=== PATIENT | female | born 1950 | race Caucasian/White ===

== ENCOUNTER → 2018-03-16 07:43 | Outpatient (CLI) | payer MEDICARE, OTHER, SELFPAY ==
--- NOTE | 2018-03-16 07:48 | ADU_ITS ---
Reason For Study: Atherosclerosis Right Velocities Left Velocities Ext. Iliac Artery, dist = 217 cm./sec. Ext Iliac Artery, dist = 125 cm./sec. Common Femoral Artery, mid = 141 cm./sec. Common Femoral Artery, mid = 127 cm./sec. Supf Femoral Artery, prox = 79.4 cm./sec. Supf. Femoral Artery, prox = 76.6 cm./sec. Supf Femoral Artery, mid = 250 cm./sec. Stent proximal = 84.5 cm/sec. Supf Femoral Artery, dist. = 133 cm./sec. Stent mid = 58 cm/sec. Profunda Femoral Artery = 329 cm./sec. Stent distal = 71.5 cm/sec. Popliteal Artery, prox. = 36.7 cm./sec. Supf. Femoral Artery, mid = 52.2 cm./sec. Popliteal Artery, mid = 72.1 cm./sec. Supf. Femoral Artery, dist = 19.6 cm./sec. Popliteal Artery, dist = 60.4 cm./sec. Profunda Femoral Artery = 81.5 cm./sec. Post. Tibial Artery, prox = 17.5 cm./sec. Popliteal Artery, proximal, = 449 cm./sec. Post. Tibial Artery, mid = 33.2 cm./sec. Popliteal Artery, mid = 134 cm./sec. Post. Tibial Artery, dist = 21 cm./sec. Popliteal Artery, distal = 25.3 cm./sec. Peroneal Artery, prox = 28.7 cm./sec. Post. Tibial Artery, prox = 28.3 cm./sec. Peroneal Artery, mid = 60.1 cm./sec. Post Tibial Artery, mid = 29.1 cm./sec. Peroneal Artery,dist = 57.8 cm./sec. Post Tibial Artery, dist. = 13.2 cm./sec. Ant. Tibial Artery, prox = 45.2 cm./sec. Ant.Tibial Artery, prox = 20.8 cm./sec. Ant. Tibial Artery, mid = 30.3 cm./sec. Ant Tibial Artery, mid = 29.3 cm./sec. Ant. Tibial Artery, dist = 35.8 cm./sec. Ant. Tibial Artery, distal = 27.1 cm./sec. Procedure Exam performed in department. Interpretation Summary 1. Right profunda severe stenosis and moderate mid right SFA. TRiphasic flow to [place]lite[place] biphasic flow below. 2. Left with triphasic flow inot tibials and then biphasic but left peroneal oclcuded. Ordering Physician: Rojelio Chowdhury Referring Physician: Mary Ramirez Performed By: Mica Swift RVT and Student
--- NOTE | 2018-03-23 11:32 | LEAS ---
Arterial Study - Arterial Study Arterial Study: Date of scan 03/16/[address] Chowdhury History: Patient with atherosclerosis and ulcer Interpretation: Right lower extremity duplex shows biphasic flow of both vessels at the ankle. The BAO 0.7 and the PT and noncompressible of the DP. Digit brachial index 0.59. Left lower extremity unable to get a waveform or flow noted at the posterior tibial artery. And no BAO able to be obtained. The DP is monophasic flow with an BAO 0.6. Digit brachial index 0.33. Impression: 1. 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 Left lower extremity with moderate arterial occlusive disease with an BAO of 0.6. 3. Bilateral small vessel disease with the digit brachial index on the right 0.59 and more severe on the left with the digit brachial index 0.33
== END ==
PROVIDERS: Referring Provider Surgery Vascular Surgery; Visit Provider Surgery Vascular Surgery
DX: I70.245 Atherosclerosis of native arteries of left leg with ulceration of other part of foot (principal); I70.235 Atherosclerosis of native arteries of right leg with ulceration of other part of foot
CPT/HCPCS: 93922; 93925

== ENCOUNTER 2018-04-06 08:29 | Day surgery (SDC) | payer MEDICARE, OTHER, SELFPAY ==
[2018-04-06 08:42] VITALS: BMI 41.1
[2018-04-06 09:04] LABS: Hematocrit 33.5 % (37-47); Hemoglobin 10.7 g/dl (12.0-15.0); Mean Corp Hgb Conc 31.9 g/gl (32-36); Mean Corpuscular Hgb 32.2 pg (27.0-32.0); Mean Corpuscular Volume 100.9 fL (81-99); Platelet Count 101 K/mm3 (150-450); RBC Distribution Width CV 14.2 % (11.6-14.6); RBC Distribution Width SD 50.4 fl (35.1-43.9); Red Blood Count 3.32 M/mm3 (4.2-5.4); White Blood Count 6.5 K/mm3 (4.4-11.0)
[2018-04-06 09:07] LABS: Scan Indicated on CBC? Y/N NO
[2018-04-06 09:17] LABS: Albumin, Serum 3.5 g/dL (3.2-5.0); BUN 61 mg/dL (7-18); BUN/Creat Ratio 23.8 RATIO (10-20); Calcium,Total 8.8 mg/dL (8.5-10.1); Chloride 104 mmol/L (98-107); Creatinine, Serum 2.56 mg/dL (0.55-1.02); EST Glomerular Filtration Rate 20 mL/min (>60); Est Glom Filt Rate - Afr Amer 24 mL/min (>60); Estimated Creatinine Clearance 18.41 ml/min; Glucose 55 mg/dL (74-106); Phosphorus 5.1 mg/dL (2.5-4.9); Potassium 4.3 mmol/L (3.5-5.1); Sodium Level 143 mmol/L (136-145)
[2018-04-06 10:11] LABS: Bedside Glucose 66 mg/dL (70-110)
[2018-04-06 10:11] LABS: Bedside Glucose 63 mg/dL (70-110)
--- NOTE | 2018-04-06 11:40 | OP.PCM_ITS ---
Operative Report Date of Procedure: 04/06/18 Preoperative diagnosis: PAD with ulcer. Postop diagnosis: The same Surgeon: Dr. Rojelio Chowdhury Date of surgery 04/06/2018. Operation: 1. Ultrasound-guided access retrograde left common femoral artery. 2. Right lower extremity angiogram catheter placed into the popliteal artery. 3. Balloon angioplasty from the mid SFA to mid popliteal artery with a 4 x 150 drug-coated balloon. 4. Closure with Star close. Indication: This 67-year-old female with previous PAD and previous stent on her left. Now has ulcer on both feet. She is got some decreased ABIs noted we discussed that we try to do an angiogram to see if there is anything to intervene to improve flow. His benefits alternatives discussed she agreed to proceed. Operation: She was brought into the operating room. And undergone the appropriate timeout consent. Underwent sedation. Was prepped and draped in a sterile fashion. We did also got access retrograde in the left common femoral artery. Put a Glidewire up and then a 5 Polish sheath. We gave 3000 units of heparin. We got up and over the bifurcation and imaged from the right external iliac artery showing the external iliac common femoral profunda SFA was widely patent. We brought the catheter down image below showing some plaque in the distal SFA moderate severe stenosis in the area of the adductor. Mid popliteal also with a moderate stenosis. We then put the catheter in the distal popliteal and imaged below there showing the posterior tibial artery was small and occluded in the mid calf. Peroneal was a little smaller but was patent with collaterals in the anterior and posterior branches. The anterior tibial artery was patent throughout and was the main runoff with good flow into the foot. We then brought in a long 6 Polish sheath. We brought in a 4 x 150 drug-coated balloon, and balloon from the mid popliteal into the area of the distal SFA. We had this up for over 2-1/2 minutes. We then pulled it back and balloon through this segment into the mid superficial femoral artery with the same balloon for another 2-1/2-minute inflation. Completion was much improved and much better flow through this segment We then removed out the sheath deployed to start closed with good hemostasis. She was brought to recovery in stable condition. Contrast dye: 10-12 cc were used. Sedation: This 67-year-old female underwent moderate sedation given by Dr. Rojelio Chowdhury. She was monitored EKG blood pressure and pulse ox. He was given fentanyl and Ve rsed. She was monitored for over the 30 minutes of the procedure. She tolerated this well. See the EMR for complete record.
--- OUTSIDE RECORDS SUMMARY | 2018-05-23 03:42 | XMS RPT_ITS ---
:1950 Author Organization OHIP Support Name Relationship Address Phone SIMON CAIN Unavailable [address] + [place] [address] SHERRELL CAINER Unavailable [address] + [place] [address] NAMS SIMON Unavailable [address] + [place] [address] MCCKLEECHIS, SIMON Unavailable [address] + [place] [address] MCCKELECHIS, SIMON Unavailable [address] + [place] [address] NAMS, SIMON Unavailable [address] + [place] [address] NAMS, SIMON Unavailable [address] + [place] [address] R Unavailable Unavailable Unavailable NAMS, SIMON Unavailable [address] + [place] [address] R Unavailable Unavailable Unavailable FEUMBERS, SIMON Unavailable [address] + [place] [address] R Unavailable Unavailable Unavailable MCCUMBERS, SIMON Unavailable [address] + [place] [address] MCCKELECHIS, SIMON Unavailable [address] + [place] [address] MCCKELECHIS, SIMON Unavailable [address] + [place] [address] NAMS, SIMON Unavailable [address] + [place] [address] NAMS, SIMON Unavailable [address] + [place] [address] NAMS SIMON Unavailable [address] + [place] [address] MCCUMBERS, SIMON Unavailable [address] + [place] [address] MCCUMBERS, SIMON Unavailable [address] + [place] [address] MCCUMBERS, SIMON Unavailable [address] + [place] [address] MCCUMBERS, SIMON Unavailable [address] + [place] [address] MCCUMBERS, SIMON Unavailable [address] + [place] [address] MCCUMBERS, SIMON Unavailable [address] + [place] [address] MCCUMBERS, SIMON Unavailable [address] + [place] [address] MCCUMBERS, SIMON Unavailable [address] + [place] [address] MCCUMBERS, SIMON Unavailable [address] + [place] [address] MCCUMBERS, SIMON Unavailable [address] + [place] [address] MCCUMBERS, SIMON Unavailable [address] + [place] [address] MCCUMBERS, SIMON Unavailable [address] + [place] [address] MCCUMBERS, SIMON Unavailable [address] + [place] [address] MCCUMBERS, SIMON Unavailable [address] + [place] [address] MCCUMBERS, SIMON Unavailable [address] + [place] [address] MCCUMBERS, SIMON Unavailable [address] + [place] [address] MCCUMBERS, SIMON Unavailable [address] + [place] [address] MCCUMBERS, SIMON Unavailable [address] + [place] [address] MCCUMBERS, SIMON Unavailable [address] + [place] [address] MCCUMBERS, SIMON Unavailable [address] + [place] [address] MCCUMBERS, SIMON Unavailable [address] + [place] [address] MCCUMBERS, SIMON Unavailable [address] + [place] [address] MCCUMBERS, SIMON Unavailable [address] + [place] [address] MCCUMBERS, SIMON Unavailable [address] + [place] [address] MCCUMBERS, SIMON Unavailable [address] + [place] [address] MCCUMBERS, SIMON Unavailable [address] + [place] [address] MCCUMBERS, SIMON Unavailable [address] + [place] [address] MCCUMBERS, SIMON Unavailable [address] + [place] [address] MCCUMBERS, SIMON Unavailable [address] + [place] [address] MCCUMBERS, SIMON Unavailable [address] + [place] [address] MCCUMBERS, SIMON Unavailable [address] + [place] [address] R Unavailable Unavailable Unavailable MCCUMBERS, SIMON Unavailable [address] + [place] [address] MCCUMBERS, OLIVEHURST Unavailable [address] + [place] [address] MCCUMBERS, SIMON Unavailable [address] + [place] [address] MCCUMBERS, SIMON Unavailable [address] + [place] [address] MCCUMBERS, SIMON Unavailable [address] + [place] [address] MCCUMBERS, SIMON Unavailable [address] + [place] [address] MCCUMBERS, OLIVEHURST Unavailable [address] + [place] [address] MCCUMBERS, SIMON Unavailable [address] + [place] [address] MCCUMBERS, SIMON Unavailable [address] + [place] [address] MCCUMBERS, SIMON Unavailable [address] + [place] [address] MCCUMBERS, SIMON Unavailable [address] + [place] [address] MCCUMBERS, SIMON Unavailable [address] + [place] [address] MCCUMBERS, SIMON Unavailable [address] + [place] [address] MCCUMBERS, SIMON Unavailable [address] + [place] [address] MCCUMBERS, SIMON Unavailable [address] + [place] [address] MCCUMBERS, SIMON Unavailable [address] + [place] [address] MCCUMBERS, SIMON Unavailable [address] + [place] [address] MCCUMBERS, SIMON Unavailable [address] + [place] [address] MCCUMBERS, SIMON Unavailable [address] + [place] [address] MCCUMBERS, SIMON Unavailable [address] + [place] [address] MCCUMBERS, SIMON Unavailable [address] + [place] [address] MCCUMBERS, SIMON Unavailable [address] + [place] [address] Care Team Providers Name Role Phone Arelis Gallego Attending Unavailable Arelis Gallego Referring Unavailable Genoveva Chowdhury Attending Unavailable Genoveva Chowdhury Referring Unavailable Mary Ramirez Primary Care Unavailable Genoveva Chowdhury Attending Unavailable Genoveva Chowdhury Referring Unavailable Mary Ramirez Primary Care Unavailable Genoveva Chowdhury Attending Unavailable Genoveva Chowdhury Referring Unavailable Mary Ramirez Primary Care Unavailable LINWOOD SAUCEDO ([employer]) Referring Unavailable ZAC PEARSON Attending Unavailable BROWN, ARELIS R Referring Unavailable PEARSON, ZAC Referring Unavailable SALVADOR FORRESTER Admitting Unavailable CHETNA ALFREDO Attending Unavailable SALVADOR FORRESTER Referring Unavailable CLAUDIA GARDNER H Referring Unavailable CHETNA ALFREDO Referring Unavailable RENAY DOCKERY ([facility]) Referring Unavailable PEARSON, ZAC Referring Unavailable URSZULA SORENSEN, DR. CHRISSY Pretty Attending Unavailable BROWN, ARELIS Primary Care Unavailable HAYDEE GRACIA MD Attending Unavailable BROWN, ARELIS Primary Care Unavailable HAYDEE GRACIA MD Admitting Unavailable ANA GUTIERREZ MD Consulting Unavailable NAS COPPOLA MD Consulting Unavailable URIAH DOW MD Consulting Unavailable DAVID FARMER MD Consulting Unavailable HAYDEE CUETO MD Consulting Unavailable HAYDEE GRACIA MD Consulting Unavailable PATIENCE GALLEGOLAS Consulting Unavailable DILMA BONILLA Attending Unavailable BROWN, ARELIS Primary Care Unavailable DAVID FARMER MD Attending Unavailable JULIÁN ARELIS Primary Care Unavailable ANA GUTIERREZ MD Attending Unavailable FLORENCE BURRELL, DR. PRADHAN Primary Care Unavailable ANDRZEJ DAIGLE., DR. DIETZ Attending Unavailable FLORENCE BURRELL, DR. PRADHAN Primary Care Unavailable GENOVEVA MANN Attending Unavailable FLORENCE BURRELL, DR. PRADHAN Primary Care Unavailable FLORENCE BURRELL, DR. PRADHAN Primary Care Unavailable WES BOYLE MD Attending Unavailable ABELINO LADD MD Consulting Unavailable HAYDEE GRACIA MD Attending Unavailable FLORENCE BURRELL, DR. PRADHAN Primary Care Unavailable HAYDEE GRACIA MD Attending Unavailable FLORENCE BURRELL, DR. PRADHAN Primary Care Unavailable URSZULA SORENSEN, DR. CHRISSY Pretty Attending Unavailable FLORENCE BURRELL, DR. PRADHAN Primary Care Unavailable RICHARD ATKINS NP Attending Unavailable FLORENCE BURRELL, DR. PRADHAN Primary Care Unavailable HAYDEE GRACIA MD Attending Unavailable FLORENCE BURRELL, DR. PRADHAN Primary Care Unavailable HAYDEE GRACIA MD Admitting Unavailable HAYDEE GRACIA MD Attending Unavailable FLORENCE BURRELL, DR. PRADHAN Primary Care Unavailable HAYDEE GRACIA MD Consulting Unavailable STEPHEN HOLLINGSWORTH MD Consulting Unavailable FLORENCE BURRELL, DR. PRADHAN Consulting Unavailable ANA GUTIERREZ MD Consulting Unavailable PARI SORENSEN, DR. MCNEILL Attending Unavailable FLORENCE DO, DR. PRADHAN Primary Care Unavailable SHAHLA Olvera Attending Unavailable FLORENCE DO, DR. PRADHAN Primary Care Unavailable URSZULA SORENSEN, DR. CHRISSY Pretty Attending Unavailable FLORENCE DO, DR. PRADHAN Primary Care Unavailable ANA GUTIERREZ MD Attending Unavailable FLORENCE DO, DR. PRADHAN Primary Care Unavailable WILBERT JULIEN, RICHARD Pillai Attending Unavailable FLORENCE DO, DR. PRADHAN Primary Care Unavailable DAVID FARMER MD Attending Unavailable FLORENCE DO, DR. PRADHAN Primary Care Unavailable URSZULA SORENSEN, DR. CHRISSY Pretty Attending Unavailable FLORENCE DO, DR. PRADHAN Primary Care Unavailable URSZULA SORENSEN, DR. CHRISSY Pretty Attending Unavailable FLORENCE DO, DR. PRADHAN Primary Care Unavailable HAYDEE GRACIA MD Attending Unavailable FLORENCE DO, DR. PRADHAN Primary Care Unavailable URSZULA SORENSEN, DR. CHRISSY Pretty Attending Unavailable FLORENCE DO, DR. PRADHAN Primary Care Unavailable ANA GUTIERREZ MD Attending Unavailable FLORENCE DO, DR. PRADHAN Primary Care Unavailable URSZULA SORENSEN, DR. CHRISSY Pretty Attending Unavailable FLORENCE DO, DR. PRADHAN Primary Care Unavailable URSZULA SORENSEN, DR. CHRISSY Pretty Attending Unavailable FLORENCE DO, DR. PRADHAN Primary Care Unavailable URSZULA SORENSEN, DR. CHRISSY Pretty Attending Unavailable FLORENCE DO, DR. PRADHAN Primary Care Unavailable URSZULA SORENSEN, DR. CHRISSY Pretty Attending Unavailable FLORENCE DO, DR. PRADHAN Primary Care Unavailable WES BOYLE MD Attending Unavailable FLORENCE DO, DR. PRADHAN Primary Care Unavailable ANA GUTIERREZ MD Attending Unavailable FLORENCE DO, DR. PRADHAN Primary Care Unavailable URSZULA SORENSEN, DR. CHRISSY Pretty Attending Unavailable FLORENCE , DR. PRADHAN Primary Care Unavailable PROBLEMS PROBLEMS DATE TYPE CONDITION / CODE ATTENDING STATUS SOURCE 09/06/2017 Active Acute on chronic NA Active [facility] (congestive) heart Repository failure / I50.23(ICD-10) 09/01/2017 Active Morbid (severe) STARLING, Active [facility] obesity due to [facility] excess calories / Repository E66.01(ICD-10) 08/19/2017 Active Fluid overload, STARLING, Active [facility] unspecified / [facility] E87.70(ICD-10) Repository 08/19/2017 Active Type 2 diabetes STARLING, Active [facility] mellitus with [facility] hyperglycemia / Repository E11.65(ICD-10) 08/19/2017 Active emt intermediate (current) STARLING, Active [facility] use of insulin / [facility] Z79.4(ICD-10) Repository 08/19/2017 Active Other fluid STARLING, Active [facility] overload / [facility] E87.79(ICD-10) Repository 08/19/2017 Active Type 2 diabetes STARLING, Active [facility] mellitus with [facility] unspecified Repository complications / E11.8(ICD-10) 08/31/2016 Active Chronic viral NA Active [facility] hepatitis C / [facility] B18.2(ICD-10) Repository 08/31/2016 Active Unspecified NA Active [facility] cirrhosis of liver [facility] / K74.60(ICD-10) Repository PROCEDURES PROCEDURES No Procedure Records FoundRESULTS RESULTS HGMP Collected: 05/09/2018 Status: F Source: [facility] 9:40 AM [facility] REPOSITORY TYPE CODE TESTS RESULT OUT OF REFERENCE UNITS RANGE LAB WBC(LOINC) 4.60-10.80 10 3/mcL WBC 5.20 LAB RBCCT(LOINC 4.20-5.40 10 6/mcL ) Low RBC 3.02 LAB HGB(LOINC) 12.0-16.0 G/dL Low Hgb 10.0 LAB HCT(LOINC) 37.0-47.0 % Low Hct 29.9 LAB MCV(LOINC) 80.0-94.0 fL High MCV 99.0 LAB MCH(LOINC) 27.0-31.2 pg High MCH 33.0 LAB MCHC(LOINC) 33.0-37.0 G/dL MCHC 33.3 LAB RDW(LOINC) 11.5-14.5 % High RDW 15.9 LAB PLT(LOINC) 130-400 10 3/mcL Low Platelet 70 LAB MPV(LOINC) 7.4-10.4 fL MPV 9.5 Performed By: #### HGMP #### [address] [place], [place] [address] #### RFP, GFR, PTH, VIDH #### [address] [address] RFP Collected: 05/09/2018 Status: F Source: [facility] 9:40 AM [facility] REPOSITORY TYPE CODE TESTS RESULT OUT OF REFERENCE UNITS RANGE LAB GLU(LOINC) 80-115 mg/dL Glucose High Level 207 LAB NA(LOINC) 136-145 mmol/L Sodium Level 139 LAB K(LOINC) 3.5-5.1 mmol/L Potassium Level 4.9 LAB CL(LOINC) 98-107 mmol/L Chloride 101 LAB CO2(LOINC) 23-31 mmol/L CO2 High 32 LAB EBAL(LOINC mEq/L ) Electrolyte Balance 6.0 LAB BUN(LOINC) 7-18 mg/dL BUN High 59 LAB CRE(LOINC) 0.55-1.02 mg/dL Creatinine High Lvl (s) 2.61 LAB BC(LOINC) 7-27 ratio BUN/Creatinine 23 Ratio LAB CA(LOINC) 8.4-10.2 mg/dL Calcium Lvl 9.7 LAB PHOS(LOINC 2.3-4.1 mg/dL ) Phosphorus High 4.6 LAB ALB(LOINC) 3.4-4.8 G/dL Albumin Level 3.5 Performed By: #### HGMP #### [address] [address] #### RFP, GFR, PTH, VIDH #### [address] [address] .GFR Collected: 05/09/2018 Status: F Source: [employer] 9:40 AM [facility] REPOSITORY TYPE CODE TESTS RESULT OUT OF REFERENCE UNITS RANGE LAB GFRAA(LOINC ml/min/1.73 ) sqm GFR 22 Citizen Of [place] Result Comment: GFR Population mean for , Non- Americans Ages 20-29 = 116 mL/min/1.73 sq.m. Ages 30-39 = 107 mL/min/1.73 sq.m. Ages 40-49 = 99 mL/min/1.73 sq.m. Ages 50-59 = 93 mL/min/1.73 sq.m. Ages 60-69 = 85 mL/min/1.73 sq.m. Ages 70+ = 75 mL/min/1.73 sq.m. Chronic Kidney Disease: Less than 60 mL/min/1.73 square meters End Stage Renal Disease: Less than 15 mL/min/1.73 square meters LAB GFRNO(LOINC) ml/min/1.73sqm GFR Non- 18 Result Comment: GFR Population mean for , Non- Americans Ages 20-29 = 116 mL/min/1.73 sq.m. Ages 30-39 = 107 mL/min/1.73 sq.m. Ages 40-49 = 99 mL/min/1.73 sq.m. Ages 50-59 = 93 mL/min/1.73 sq.m. Ages 60-69 = 85 mL/min/1.73 sq.m. Ages 70+ = 75 mL/min/1.73 sq.m. Chronic Kidney Disease: Less than 60 mL/min/1.73 square meters End Stage Renal Disease: Less than 15 mL/min/1.73 square meters Performed By: #### HGMP #### [address] [address] #### RFP, GFR, PTH, VIDH #### [address] [address] PTH Collected: 05/09/2018 Status: F Source: [employer] 9:40 AM [facility] REPOSITORY TYPE CODE TESTS RESULT OUT OF REFERENCE UNITS RANGE LAB PTH(LOINC) 18.5-88.0 pg/mL High PTH, Intact 134.9 Performed By: #### HGMP #### [address] [place], [place] [address] #### RFP, GFR, PTH, VIDH #### [address] [address] VIDH Collected: 05/09/2018 Status: F Source: [facility] 9:40 AM [facility] REPOSITORY TYPE CODE TESTS RESULT OUT OF RANGE REFERENCE UNITS LAB VIDH(LOINC) ng/mL Vit. D 62 25-Hydroxy Result Comment: Interpretive Values Based on Total 25(OH)D: Severe Deficiency <20 ng/mL Mild to Moderate Deficiency 20-30 ng/mL Optimum Levels 30-100 ng/mL Toxicity Possible >100 ng/mL Performed By: #### HGMP #### [address] [address] #### RFP, GFR, PTH, VIDH #### [facility] [address] [place] [address] A1C Collected: 05/09/2018 Status: F Source: [facility] 9:40 AM [facility] REPOSITORY TYPE CODE TESTS RESULT OUT OF RANGE REFERENCE UNITS LAB A1C(LOINC) 4.5-6.2 % High Hgb A1c 7.7 Performed By: #### A1C, TSH, CMP, GFR #### [place] [address] TSH Collected: 05/09/2018 Status: F Source: [facility] 9:40 AM [facility] REPOSITORY TYPE CODE TESTS RESULT OUT OF RANGE REFERENCE UNITS LAB TSH(LOINC) 0.36-3.74 mcIU/mL TSH 0.68 Performed By: #### A1C, TSH, CMP, GFR #### [place] [address] CMP Collected: 05/09/2018 Status: F Source: [facility] 9:40 AM [facility] REPOSITORY TYPE CODE TESTS RESULT OUT OF REFERENCE UNITS RANGE LAB GLU(LOINC) 80-115 mg/dL Glucose High Level 205 LAB NA(LOINC) 136-145 mmol/L Sodium Level 139 LAB K(LOINC) 3.5-5.1 mmol/L Potassium Level 5.0 LAB CL(LOINC) 98-107 mmol/L Chloride 101 LAB CO2(LOINC) 23-31 mmol/L CO2 31 LAB EBAL(LOINC mEq/L ) Electrolyte Balance 7.0 LAB BUN(LOINC) 7-18 mg/dL BUN High 60 LAB CRE(LOINC) 0.55-1.02 mg/dL Creatinine High Lvl (s) 2.61 LAB BC(LOINC) 7-27 ratio BUN/Creatinine 23 Ratio LAB CA(LOINC) 8.4-10.2 mg/dL Calcium Lvl 9.8 LAB PROT(LOINC 6.4-8.2 G/dL ) Total Protein 7.5 LAB ALB(LOINC) 3.4-4.8 G/dL Albumin Level 3.5 LAB GLB(LOINC) G/dL Globulin 4.0 LAB AG(LOINC) 1.1-2.5 ratio Low A/G Ratio 0.9 LAB BILT(LOINC 0.2-1.0 mg/dL ) Bili Total 0.7 LAB AP(LOINC) 40-135 U/L Alk Phos 106 LAB AST(LOINC) 10-40 U/L AST/SGOT 24 LAB ALT(LOINC) 10-35 U/L ALT/SGPT 20 Performed By: #### A1C, TSH, CMP, GFR #### [facility] [address] [place] [address] .GFR Collected: 05/09/2018 Status: F Source: [facility] 9:40 AM [facility] REPOSITORY TYPE CODE TESTS RESULT OUT OF REFERENCE UNITS RANGE LAB GFRAA(LOINC ml/min/1.73 ) sqm GFR 22 Citizen [place] Result Comment: GFR Population mean for , Non- Americans Ages 20-29 = 116 mL/min/1.73 sq.m. Ages 30-39 = 107 mL/min/1.73 sq.m. Ages 40-49 = 99 mL/min/1.73 sq.m. Ages 50-59 = 93 mL/min/1.73 sq.m. Ages 60-69 = 85 mL/min/1.73 sq.m. Ages 70+ = 75 mL/min/1.73 sq.m. Chronic Kidney Disease: Less than 60 mL/min/1.73 square meters End Stage Renal Disease: Less than 15 mL/min/1.73 square meters LAB GFRNO(LOINC) ml/min/1.73sqm GFR Non- 18 Result Comment: GFR Population mean for , Non- Americans Ages 20-29 = 116 mL/min/1.73 sq.m. Ages 30-39 = 107 mL/min/1.73 sq.m. Ages 40-49 = 99 mL/min/1.73 sq.m. Ages 50-59 = 93 mL/min/1.73 sq.m. Ages 60-69 = 85 mL/min/1.73 sq.m. Ages 70+ = 75 mL/min/1.73 sq.m. Chronic Kidney Disease: Less than 60 mL/min/1.73 square meters End Stage Renal Disease: Less than 15 mL/min/1.73 square meters Performed By: #### A1C, TSH, CMP, GFR #### [facility] [address] [place] [address] CRUR Collected: 05/09/2018 Status: F Source: [employer] [facility] 9:40 AM [facility] REPOSITORY TYPE CODE TESTS RESULT OUT OF REFERENCE UNITS RANGE LAB CRU(LOINC) 28.0-117.0 mg/dL U Creatinine 69.3 Performed By: #### CRUR, PRUR #### [facility] [address] [place] [address] PRUR Collected: 05/09/2018 Status: F Source: [employer] 9:40 AM [facility] REPOSITORY TYPE CODE TESTS RESULT OUT OF REFERENCE UNITS RANGE LAB PRU(LOINC) 0-11 mg/dL U High Protein 18 Performed By: #### CRUR, PRUR #### [facility] [address] [place] [address] XR RIBS 2 VIEWS Observed: 04/20/2018 Status: F Source: [employer] RIGHT/PA CHEST(AO) 5:49 PM [facility] REPOSITORY ORIGINAL XR RIBS 2 VIEWS RIGHT/PA CHEST(AO) CLINICAL STATEMENT: pain. Fall 2 days ago. RIGHT posterolateral rib pain COMPARISON: Portable chest, 11/08/2027 FINDINGS: A PA view of the chest and RIGHT radiographic rib series was performed. Bony detail is suboptimal given patient habitus and motion, however no displaced rib fracture is seen. There is no pneumothorax. Median sternotomy wires are intact. There is a LEFT anterior chest wall ICD with leads projecting over the RIGHT atrium, RIGHT ventricle, and coronary sinus. There is mild cardiomegaly without pulmonary vascular congestion. Streaky opacities in the lower lungs favor subsegmental atelectasis. No dense consolidation or pleural effusion. Moderate multilevel degenerative endplate changes are seen throughout the thoracic spine. IMPRESSION: No displaced rib fracture or pneumothorax. Stable cardiomegaly. I have personally reviewed the images of this examination and agree with the resident's findings and interpretation Interpreted By: Torres Bridges MD Preliminary Report By: Noel Chavira MD Electronically Signed By: Torres Bridges MD Dictated Date: 04/20/2018 6:02:39 PM Prelim Date: 04/20/2018 6:06:11 PM Sign Date: 04/20/2018 6:19:49 PM BEDSIDE GLUCOSE Collected: 04/13/2018 Status: F Source: [facility] 3:20 PM [facility] REPOSITORY TYPE CODE TESTS RESULT OUT OF REFERENCE UNITS RANGE LAB L501.080 70-110 mg/dL High BEDSIDE GLU 447 Result Comment: MANAGEMENT OF PATIENT CARE PER NURSING PROTOCOL Performed By: #### L501.080 #### [facility] Point of Care [address] [place] [address] OPERATIVE REPORT Observed: 04/13/2018 Status: F Source: [place] 11:43 AM [facility] REPOSITORY [facility] Medical Records Department [address] [place] [address] Operative Report 04/13/18 1134 MR#: [id number] Acct: [id number] Name: KALYN CAIN Rep #: [id number] : 1950 67 From: Genoveva Chowdhury MD PCP: Mary Ramirez DO Status: [facility] Location: [facility] Problem List (1) PAD (peripheral artery disease) Status: Acute Report of Operation Date of Procedure: 04/13/18 Pre-Operative Diagnosis: PAD Post-Operative Diagnosis: The same Surgery/Procedure Performed:: 1. Ultrasound-guided access retrograde right common femoral artery. 2. Left lower extremity angiogram with a total of 13 cc of dye used. Catheter placed past the third order into the popliteal artery. 3. Balloon angioplasty of the popliteal to the stent that is in the proximal popliteal to SFA, with a 4 mm balloon and then a 4 x 150 drug-coated balloon. 4. Closure with VASC ANANYA Type of Anesthesia:: Sedation,Conscious Description of Procedure: Patient brought to the Cryptographic Machine Operator. Underwent the appropriate timeout consent. Underwent sedation. He was prepped and draped in a sterile fashion. We did ultrasound-guided access retrograde in the right common femoral artery and put in a 6 [place] sheath and then gave 5000 units of heparin. We got up and over the bifurcation switch to a quick cross catheter. We then imaged from the left external iliac artery showing through the external cautery down through the common femoral profunda was widely patent. The SFA was widely patent into the stent, the stent was from the distal SFA to the proximal popliteal. This appeared to be fairly patent with no significant stenosis noted. The mid popliteal had a near subtotal occlusion. Below this there is good flow in the distal popliteal into the anterior tibial and tibial peroneal trunk. We did not image below this to try to salvage on dye. We knew from the duplex that the difficulty appear to be in the popliteal artery. We then switched to a stiffer wire brought and a 6 [place] sheath we then got sheath all the way down to the common femoral artery. Using a quick cross and then the wire was able to get through the area the occlusion. We confirmed we are into the [place] vessel with flow below this. We then brought in along for by 200 balloon and balloon from the distal popliteal through the entire popliteal artery, into the popliteal and SFA stent. We ballooned this for over 2 minutes. We then ballooned it with a 4 x 150 drug-coated balloon. Completion angios markedly improved with great flow through this area. We then removed out the sheath deployed a star closed with good hemostasis patient was then brought to recovery in stable condition. Sedation: Is a 67-year-old female underwent moderate sedation given by Dr. Genoveva Chowdhury. She was monitored for over 30 minutes of the procedure with EKG blood pressure and pulse ox. She was given fentanyl and Versed. See the EMR for the complete record. 04/13/18 1143 <Electronically signed by Genoveva Chowdhury MD> Date Genoveva Chowdhury MD CC: Genoveva Chowdhury MD; Mary Ramirez DO Signed CBC-COMPLETE BLOOD CNT Collected: 04/13/2018 Status: F Source: [facility] NO DIFF 8:30 AM [facility] REPOSITORY TYPE CODE TESTS RESULT OUT OF RANGE REFERENCE UNITS LAB L100.1000 4.4-11.0 K/mm3 Normal WBC 5.4 LAB L100.1200 4.2-5.4 M/mm3 Low RBC 3.00 LAB L100.1300 12.0-15.0 g/dl Low HGB 9.6 LAB L100.1400 37-47 % Low HCT 30.1 LAB L100.1500 81-99 fL High MCV 100.3 LAB L100.1600 27.0-32.0 pg Normal MCH 32.0 LAB L100.1700 32-36 g/gl Low MCHC 31.9 LAB L100.1810 11.6-14.6 % Normal RDW CV 14.1 LAB L100.1820 35.1-43.9 fl High RDW SD 48.9 LAB L100.1900 150-450 K/mm3 Low PLT 70 LAB L100.2000 6.2-12.0 fl Normal MPV 11.4 Performed By: #### L100.0500 #### [facility] [address] [place], [place], [address] RENAL PROFILE Collected: 04/13/2018 Status: F Source: [place] 8:30 AM [facility] REPOSITORY TYPE CODE TESTS RESULT OUT OF RANGE REFERENCE UNITS LAB L501.0100 74-106 mg/dL High GLU 349 Result Comment: Glucose result greater than or equal to 200 mg/dL suggests DIABETES MELLITUS per A.D.A. criteria. Please note revised GLUCOSE reference range effective 2017. LAB L501.1000 7-18 mg/dL High BUN 67 LAB L501.1100 0.55-1.02 mg/dL High CREAT,SERUM 2.75 Result Comment: The validity of the calculated GFR AND GFRAA in patients over 70 years has not been determined. Clinical correlation is essential. LAB L501.1110 >60 mL/min Low EST GFR 18 Result Comment: Non- GFR Calc LAB L501.1115 >60 mL/min Low EST GFR - AA 22 Result Comment: GFR Calc LAB L501.1255 ml/min Normal Estimated CRCL 17.14 LAB L501.1300 10-20 RATIO High BUN/CRE 24.4 LAB L501.1800 3.2-5. g/dL Normal 0 ALB 3.2 LAB L501.2200 8.5-10 mg/dL Normal .1 CA 9.1 LAB L501.2300 2.5-4. mg/dL Normal 9 PHOS 4.5 LAB L501.5300 136-14 mmol/L Normal 5 NA 138 LAB L501.5600 3.5-5. mmol/L Normal 1 K 5.1 LAB L501.5900 98-107 mmol/L Normal CL 98 LAB L501.6100 21.0-3 mmol/L Normal 2.0 CO2 30.0 Performed By: #### L500.3600 #### [facility] [address] [place], [address] OPERATIVE REPORT Observed: 04/06/2018 Status: F Source: [place] 11:40 AM [facility] REPOSITORY [facility] Medical Records Department [address] [place] [address] Operative Report 04/06/18 1136 MR#: [id number] Acct: [id number] Name: KALYN CAIN Rep #: [id number] : 1950 67 From: Genoveva Chowdhury MD PCP: Mary Ramirez DO Status: REG [facility] Location: [facility] Operative Report Date of Procedure: 04/06/18 Preoperative diagnosis: PAD with ulcer. Postop diagnosis: The same Surgeon: Dr. Genoveva Chowdhury Date of surgery 04/06/2018. Operation: 1. Ultrasound-guided access retrograde left common femoral artery. 2. Right lower extremity angiogram catheter placed into the popliteal artery. 3. Balloon angioplasty from the mid SFA to mid popliteal artery with a 4 x 150 drug-coated balloon. 4. Closure with Star close. Indication: This 67-year-old female with previous PAD and previous stent on her left. Now has ulcer on both feet. She is got some decreased ABIs noted we discussed that we try to do an angiogram to see if there is anything to intervene to improve flow. His benefits alternatives discussed she agreed to proceed. Operation: She was brought into the operating room. And undergone the appropriate timeout consent. Underwent sedation. Was prepped and draped in a sterile fashion. We did also got access retrograde in the left common femoral artery. Put a Glidewire up and then a 5 [place] sheath. We gave 3000 units of heparin. We got up and over the bifurcation and imaged from the right external iliac artery showing the external iliac common femoral profunda SFA was widely patent. We brought the catheter down image below showing some plaque in the distal SFA moderate severe stenosis in the area of the adductor. Mid popliteal also with a moderate stenosis. We then put the catheter in the distal popliteal and imaged below there showing the posterior tibial artery was small and occluded in the mid calf. Peroneal was a little smaller but was patent with collaterals in the anterior and posterior branches. The anterior tibial artery was patent throughout and was the main runoff with good flow into the foot. We then brought in a long 6 [place] sheath. We brought in a 4 x 150 drug-coated balloon, and balloon from the mid popliteal into the area of the distal SFA. We had this up for over 2-1/2 minutes. We then pulled it back and balloon through this segment into the mid superficial femoral artery with the same balloon for another 2-1/2-minute inflation. Completion was much improved and much better flow through this segment We then removed out the sheath deployed to start closed with good hemostasis. She was brought to recovery in stable condition. Contrast dye: 10-12 cc were used. Sedation: This 67-year-old female underwent moderate sedation given by Dr. Genoveva Chowdhury. She was monitored EKG blood pressure and pulse ox. He was given fentanyl and Versed. She was monitored for over the 30 minutes of the procedure. She tolerated this well. See the EMR for complete record. 04/06/18 1140 <Electronically signed by Genoveva Chowdhury MD> Date Genoveva Chowdhury MD CC: Genoveva Chowdhury MD; Mary Ramirez DO Signed BEDSIDE GLUCOSE Collected: 04/06/2018 Status: F Source: [place] 10:04 AM [facility] REPOSITORY TYPE CODE TESTS RESULT OUT OF REFERENCE UNITS RANGE LAB L501.080 70-110 mg/dL Low BEDSIDE GLU 63 Result Comment: MANAGEMENT OF PATIENT CARE PER NURSING PROTOCOL Performed By: #### L501.080 #### [facility] Point of Care [address] [place] [address] BEDSIDE GLUCOSE Collected: 04/06/2018 Status: F Source: [place] 9:02 AM [facility] REPOSITORY TYPE CODE TESTS RESULT OUT OF REFERENCE UNITS RANGE LAB L501.080 70-110 mg/dL Low BEDSIDE GLU 66 Result Comment: MANAGEMENT OF PATIENT CARE PER NURSING PROTOCOL Performed By: #### L501.080 #### [facility] Point of Care [address] [place] [address] CBC-COMPLETE BLOOD CNT Collected: 04/06/2018 Status: F Source: [place] NO DIFF 5:45 AM [facility] REPOSITORY TYPE CODE TESTS RESULT OUT OF RANGE REFERENCE UNITS LAB L100.1000 4.4-11.0 K/mm3 Normal WBC 6.5 LAB L100.1200 4.2-5.4 M/mm3 Low RBC 3.32 LAB L100.1300 12.0-15.0 g/dl Low HGB 10.7 LAB L100.1400 37-47 % Low HCT 33.5 LAB L100.1500 81-99 fL High MCV 100.9 LAB L100.1600 27.0-32.0 pg High MCH 32.2 LAB L100.1700 32-36 g/gl Low MCHC 31.9 LAB L100.1810 11.6-14.6 % Normal RDW CV 14.2 LAB L100.1820 35.1-43.9 fl High RDW SD 50.4 LAB L100.1900 150-450 K/mm3 Low PLT 101 LAB L100.2000 6.2-12.0 fl Normal MPV 11.0 Performed By: #### L100.0500 #### [facility] [address] [place], [place], [id number] RENAL PROFILE Collected: 04/06/2018 Status: F Source: [place] 5:45 AM [facility] REPOSITORY TYPE CODE TESTS RESULT OUT OF RANGE REFERENCE UNITS LAB L501.0100 74-106 mg/dL Low GLU 55 Result Comment: Please note revised GLUCOSE reference range effective 2017. LAB L501.1000 7-18 mg/dL High BUN 61 LAB L501.1100 0.55-1.02 mg/dL High CREAT,SERUM 2.56 Result Comment: The validity of the calculated GFR AND GFRAA in patients over 70 years has not been determined. Clinical correlation is essential. LAB L501.1110 >60 mL/min Low EST GFR 20 Result Comment: Non- GFR Calc LAB L501.1115 >60 mL/min Low EST GFR - AA 24 Result Comment: GFR Calc LAB L501.1255 ml/min Normal Estimated CRCL 18.41 LAB L501.1300 10-20 RATIO High BUN/CRE 23.8 LAB L501.1800 3.2-5. g/dL Normal 0 ALB 3.5 LAB L501.2200 8.5-10 mg/dL Normal .1 CA 8.8 LAB L501.2300 2.5-4. mg/dL High 9 PHOS 5.1 LAB L501.5300 136-14 mmol/L Normal 5 NA 143 LAB L501.5600 3.5-5. mmol/L Normal 1 K 4.3 LAB L501.5900 98-107 mmol/L Normal CL 104 LAB L501.6100 21.0-3 mmol/L Normal 2.0 CO2 30.0 Performed By: #### L500.3600 #### [facility] [address] [facility] [place], [address] ARTERIAL DUPLEX US Observed: 03/23/2018 Status: F Source: [facility] 11:47 AM [facility] REPOSITORY [facility] Cardiovascular Services [address] [place] [address] Art Duplex US Bilat Lower Ext 03/16/18 0756 MR#: [id number] Acct: [id number] Name: KALYN CAIN Rep #: [id number] : 1950 67 From: Genoveva Chowdhury MD Attending Dr: Genoveva Chowdhury MD Status: REG CLI Ordering Dr: Genoveva Chowdhury MD Date: 03/16/18 Location: [facility] Sex: F C Admitted: Reason For Study: Atherosclerosis Right Velocities Left Velocities Ext. Iliac Artery, dist = 217 cm./sec. Ext Iliac Artery, dist = 125 cm./sec. Common Femoral Artery, mid = 141 cm./sec. Common Femoral Artery, mid = 127 cm./sec. Supf Femoral Artery, prox = 79.4 cm./sec. Supf. Femoral Artery, prox = 76.6 cm./sec. Supf Femoral Artery, mid = 250 cm./sec. Stent proximal = 84.5 cm/sec. Supf Femoral Artery, dist. = 133 cm./sec. Stent mid = 58 cm/sec. Profunda Femoral Artery = 329 cm./sec. Stent distal = 71.5 cm/sec. Popliteal Artery, prox. = 36.7 cm./sec. Supf. Femoral Artery, mid = 52.2 cm./sec. Popliteal Artery, mid = 72.1 cm./sec. Supf. Femoral Artery, dist = 19.6 cm./sec. Popliteal Artery, dist = 60.4 cm./sec. Profunda Femoral Artery = 81.5 cm./sec. Post. Tibial Artery, prox = 17.5 cm./sec. Popliteal Artery, proximal, = 449 cm./sec. Post. Tibial Artery, mid = 33.2 cm./sec. Popliteal Artery, mid = 134 cm./sec. Post. Tibial Artery, dist = 21 cm./sec. Popliteal Artery, distal = 25.3 cm./sec. Peroneal Artery, prox = 28.7 cm./sec. Post. Tibial Artery, prox = 28.3 cm./sec. Peroneal Artery, mid = 60.1 cm./sec. Post Tibial Artery, mid = 29.1 cm./sec. Peroneal Artery,dist = 57.8 cm./sec. Post Tibial Artery, dist. = 13.2 cm./sec. Ant. Tibial Artery, prox = 45.2 cm./sec. Ant.Tibial Artery, prox = 20.8 cm./sec. Ant. Tibial Artery, mid = 30.3 cm./sec. Ant Tibial Artery, mid = 29.3 cm./sec. Ant. Tibial Artery, dist = 35.8 cm./sec. Ant. Tibial Artery, distal = 27.1 cm./sec. Procedure Exam performed in department. Interpretation Summary 1. Right profunda severe stenosis and moderate mid right SFA. TRiphasic flow to poplitealand biphasic flow below. 2. Left with triphasic flow inot tibials and then biphasic but left peroneal oclcuded. Ordering Physician: Genoveva Chowdhury Referring Physician: Mary Ramirez Performed By: Mica Swift RVT and Student 03/23/18 1147 Date Genoveva Chowdhury MD CC: Genoveva Chowdhury MD; Mary Ramirez DO Date Dictated: 03/16/18 0756 Date Transcribed: 03/23/18 114 Sample Coordinator: Signed LOWER EXT ARTERIAL Observed: 03/23/2018 Status: F Source: [facility] 11:34 AM [facility] REPOSITORY [facility] Cardiovascular Services [address] [place] [id number] 03/23/18 1132 MR#: [id number] Acct: [id number] Name: KALYN CAIN Rep #: [id number] : 1950 67 From: Genoveva Chowdhury MD Attending Dr: Genoveva Chowdhury MD Status: REG CLI Ordering Dr: Date: 03/23/18 Location: [facility] Sex: F C Admitted: Arterial Study - Arterial Study Arterial Study: Date of scan 03/16/[address] Chowdhury History: Patient with atherosclerosis and ulcer Interpretation: Right lower extremity duplex shows biphasic flow of both vessels at the ankle. The BAO 0.7 and the PT and noncompressible of the DP. Digit brachial index 0.59. Left lower extremity unable to get a waveform or flow noted at the posterior tibial artery. And no BAO able to be obtained. The DP is monophasic flow with an BAO 0.6. Digit brachial index 0.33. Impression: 1. 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 Left lower extremity with moderate arterial occlusive disease with an BAO of 0.6. 3. Bilateral small vessel disease with the digit brachial index on the right 0.59 and more severe on the left with the digit brachial index 0.33 03/23/18 1134 <Electronically signed by Genoveva Chowdhury MD> Date Genoveva Chowdhury MD CC: Genoveva Chowdhury MD; Mary Ramirez Date Dictated: 03/23/181131 Date Transcribed: 03/23/181131 Sample Coordinator: LUIS CARLOS Signed BMP Collected: 02/25/2018 Status: F Source: [facility] 10:30 AM [facility] REPOSITORY TYPE CODE TESTS RESULT OUT OF REFERENCE UNITS RANGE LAB GLU(LOINC) 80-115 mg/dL Glucose High Level 287 LAB NA(LOINC) 136-145 mmol/L Sodium Level 138 LAB K(LOINC) 3.5-5.1 mmol/L Potassium High Level 5.2 LAB CL(LOINC) 98-107 mmol/L Chloride 101 LAB CO2(LOINC) 23-31 mmol/L CO2 High 32 LAB EBAL(LOINC mEq/L ) Electrolyte Balance 5.0 LAB BUN(LOINC) 7-18 mg/dL BUN High 53 LAB CRE(LOINC) 0.55-1.02 mg/dL Creatinine High Lvl (s) 2.43 LAB BC(LOINC) 7-27 ratio BUN/Creatinine 22 Ratio LAB CA(LOINC) 8.4-10.2 mg/dL Calcium Lvl 9.3 Performed By: #### BMP, GFR #### [place] [address] .GFR Collected: 02/25/2018 Status: F Source: [facility] 10:30 AM [facility] REPOSITORY TYPE CODE TESTS RESULT OUT OF REFERENCE UNITS RANGE LAB GFRAA(LOINC ml/min/1.73 ) sqm GFR 24 Citizen Of [place] Result Comment: GFR Population mean for , Non- Americans Ages 20-29 = 116 mL/min/1.73 sq.m. Ages 30-39 = 107 mL/min/1.73 sq.m. Ages 40-49 = 99 mL/min/1.73 sq.m. Ages 50-59 = 93 mL/min/1.73 sq.m. Ages 60-69 = 85 mL/min/1.73 sq.m. Ages 70+ = 75 mL/min/1.73 sq.m. Chronic Kidney Disease: Less than 60 mL/min/1.73 square meters End Stage Renal Disease: Less than 15 mL/min/1.73 square meters LAB GFRNO(LOINC) ml/min/1.73sqm GFR Non- 20 Result Comment: GFR Population mean for , Non- Americans Ages 20-29 = 116 mL/min/1.73 sq.m. Ages 30-39 = 107 mL/min/1.73 sq.m. Ages 40-49 = 99 mL/min/1.73 sq.m. Ages 50-59 = 93 mL/min/1.73 sq.m. Ages 60-69 = 85 mL/min/1.73 sq.m. Ages 70+ = 75 mL/min/1.73 sq.m. Chronic Kidney Disease: Less than 60 mL/min/1.73 square meters End Stage Renal Disease: Less than 15 mL/min/1.73 square meters Performed By: #### MANJU, GFR #### [place] [address] BMP Collected: 02/18/2018 Status: F Source: [facility] 12:27 PM [facility] REPOSITORY TYPE CODE TESTS RESULT OUT OF REFERENCE UNITS RANGE LAB GLU(LOINC) 80-115 mg/dL Glucose High Level 208 LAB NA(LOINC) 136-145 mmol/L Sodium Level 138 LAB K(LOINC) 3.5-5.1 mmol/L Potassium Level 5.0 LAB CL(LOINC) 98-107 mmol/L Chloride 102 LAB CO2(LOINC) 23-31 mmol/L CO2 High 32 LAB EBAL(LOINC mEq/L ) Electrolyte Balance 4.0 LAB BUN(LOINC) 7-18 mg/dL BUN High 53 LAB CRE(LOINC) 0.55-1.02 mg/dL Creatinine High Lvl (s) 2.77 LAB BC(LOINC) 7-27 ratio BUN/Creatinine 19 Ratio LAB CA(LOINC) 8.4-10.2 mg/dL Calcium Lvl 9.1 Performed By: #### BMP, GFR #### [address] [address] .GFR Collected: 02/18/2018 Status: F Source: [facility] 12:27 PM [facility] REPOSITORY TYPE CODE TESTS RESULT OUT OF REFERENCE UNITS RANGE LAB GFRAA(LOINC ml/min/1.73 ) sqm GFR 21 Citizen Of [place] Result Comment: GFR Population mean for , Non- Americans Ages 20-29 = 116 mL/min/1.73 sq.m. Ages 30-39 = 107 mL/min/1.73 sq.m. Ages 40-49 = 99 mL/min/1.73 sq.m. Ages 50-59 = 93 mL/min/1.73 sq.m. Ages 60-69 = 85 mL/min/1.73 sq.m. Ages 70+ = 75 mL/min/1.73 sq.m. Chronic Kidney Disease: Less than 60 mL/min/1.73 square meters End Stage Renal Disease: Less than 15 mL/min/1.73 square meters LAB GFRNO(LOINC) ml/min/1.73sqm GFR Non- 17 Result Comment: GFR Population mean for , Non- Americans Ages 20-29 = 116 mL/min/1.73 sq.m. Ages 30-39 = 107 mL/min/1.73 sq.m. Ages 40-49 = 99 mL/min/1.73 sq.m. Ages 50-59 = 93 mL/min/1.73 sq.m. Ages 60-69 = 85 mL/min/1.73 sq.m. Ages 70+ = 75 mL/min/1.73 sq.m. Chronic Kidney Disease: Less than 60 mL/min/1.73 square meters End Stage Renal Disease: Less than 15 mL/min/1.73 square meters Performed By: #### BMP, GFR #### [place] [address] BMP Collected: 02/11/2018 Status: F Source: [facility] 9:10 AM [facility] REPOSITORY TYPE CODE TESTS RESULT OUT OF REFERENCE UNITS RANGE LAB GLU(LOINC) 80-115 mg/dL Glucose High Level 195 LAB NA(LOINC) 136-145 mmol/L Sodium Level 137 LAB K(LOINC) 3.5-5.1 mmol/L Potassium Level 4.8 LAB CL(LOINC) 98-107 mmol/L Chloride 105 LAB CO2(LOINC) 23-31 mmol/L CO2 29 LAB EBAL(LOINC mEq/L ) Electrolyte Balance 3.0 LAB BUN(LOINC) 7-18 mg/dL BUN High 54 LAB CRE(LOINC) 0.55-1.02 mg/dL Creatinine High Lvl (s) 2.42 LAB BC(LOINC) 7-27 ratio BUN/Creatinine 22 Ratio LAB CA(LOINC) 8.4-10.2 mg/dL Calcium Lvl 8.8 Performed By: #### BMP, GFR #### [place] [address] .GFR Collected: 02/11/2018 Status: F Source: [facility] 9:10 AM [facility] REPOSITORY TYPE CODE TESTS RESULT OUT OF REFERENCE UNITS RANGE LAB GFRAA(LOINC ml/min/1.73 ) sqm GFR 24 Citizen Of [place] Result Comment: GFR Population mean for , Non- Americans Ages 20-29 = 116 mL/min/1.73 sq.m. Ages 30-39 = 107 mL/min/1.73 sq.m. Ages 40-49 = 99 mL/min/1.73 sq.m. Ages 50-59 = 93 mL/min/1.73 sq.m. Ages 60-69 = 85 mL/min/1.73 sq.m. Ages 70+ = 75 mL/min/1.73 sq.m. Chronic Kidney Disease: Less than 60 mL/min/1.73 square meters End Stage Renal Disease: Less than 15 mL/min/1.73 square meters LAB GFRNO(LOINC) ml/min/1.73sqm GFR Non- 20 Result Comment: GFR Population mean for , Non- Americans Ages 20-29 = 116 mL/min/1.73 sq.m. Ages 30-39 = 107 mL/min/1.73 sq.m. Ages 40-49 = 99 mL/min/1.73 sq.m. Ages 50-59 = 93 mL/min/1.73 sq.m. Ages 60-69 = 85 mL/min/1.73 sq.m. Ages 70+ = 75 mL/min/1.73 sq.m. Chronic Kidney Disease: Less than 60 mL/min/1.73 square meters End Stage Renal Disease: Less than 15 mL/min/1.73 square meters Performed By: #### BMP, GFR #### [address] [address] BMP Collected: 02/04/2018 Status: F Source: [facility] 7:42 AM [facility] REPOSITORY TYPE CODE TESTS RESULT OUT OF REFERENCE UNITS RANGE LAB GLU(LOINC) 80-115 mg/dL Glucose Level 94 LAB NA(LOINC) 136-145 mmol/L Sodium Level 141 LAB K(LOINC) 3.5-5.1 mmol/L Potassium Level 4.4 LAB CL(LOINC) 98-107 mmol/L Chloride 103 LAB CO2(LOINC) 23-31 mmol/L CO2 29 LAB EBAL(LOINC mEq/L ) Electrolyte Balance 9.0 LAB BUN(LOINC) 7-18 mg/dL BUN High 55 LAB CRE(LOINC) 0.55-1.02 mg/dL Creatinine High Lvl (s) 2.46 LAB BC(LOINC) 7-27 ratio BUN/Creatinine 22 Ratio LAB CA(LOINC) 8.4-10.2 mg/dL Calcium Lvl 9.6 Performed By: #### BMP, GFR #### [address] [address] .GFR Collected: 02/04/2018 Status: F Source: [facility] 7:42 AM [facility] REPOSITORY TYPE CODE TESTS RESULT OUT OF REFERENCE UNITS RANGE LAB GFRAA(LOINC ml/min/1.73 ) sqm GFR 24 Citizen Of [place] Result Comment: GFR Population mean for , Non- Americans Ages 20-29 = 116 mL/min/1.73 sq.m. Ages 30-39 = 107 mL/min/1.73 sq.m. Ages 40-49 = 99 mL/min/1.73 sq.m. Ages 50-59 = 93 mL/min/1.73 sq.m. Ages 60-69 = 85 mL/min/1.73 sq.m. Ages 70+ = 75 mL/min/1.73 sq.m. Chronic Kidney Disease: Less than 60 mL/min/1.73 square meters End Stage Renal Disease: Less than 15 mL/min/1.73 square meters LAB GFRNO(LOINC) ml/min/1.73sqm GFR Non- 20 Result Comment: GFR Population mean for , Non- Americans Ages 20-29 = 116 mL/min/1.73 sq.m. Ages 30-39 = 107 mL/min/1.73 sq.m. Ages 40-49 = 99 mL/min/1.73 sq.m. Ages 50-59 = 93 mL/min/1.73 sq.m. Ages 60-69 = 85 mL/min/1.73 sq.m. Ages 70+ = 75 mL/min/1.73 sq.m. Chronic Kidney Disease: Less than 60 mL/min/1.73 square meters End Stage Renal Disease: Less than 15 mL/min/1.73 square meters Performed By: #### BMP, GFR #### [address] [address] TSH Collected: 01/31/2018 Status: F Source: [facility] 8:41 AM [facility] REPOSITORY TYPE CODE TESTS RESULT OUT OF RANGE REFERENCE UNITS LAB TSH(LOINC) 0.36-3.74 mcIU/mL TSH 0.68 Performed By: #### TSH, FT4, LIPID, CMP, GFR, A1C #### [place] [address] FT4 Collected: 01/31/2018 Status: F Source: [facility] 8:41 AM [facility] REPOSITORY TYPE CODE TESTS RESULT OUT OF RANGE REFERENCE UNITS LAB FT4(LOINC) 0.76-1.46 ng/dL Free T4 1.35 Performed By: #### TSH, FT4, LIPID, CMP, GFR, A1C #### [address] [address] LIPID Collected: 01/31/2018 Status: F Source: [facility] 8:41 AM [facility] REPOSITORY TYPE CODE TESTS RESULT OUT OF REFERENCE UNITS RANGE LAB CHOL(LOINC 0-200 mg/dL ) Cholesterol 125 Result Comment: Cholesterol Reference Interval: Less than 200 Desirable 200-239 Borderline high risk 240 and above High risk LAB TRIG(LOINC) 0-150 mg/dL Triglycerides 91 Result Comment: Triglyceride Reference Interval: Less than 150 Normal 150-199 Borderline high risk 200-499 High risk 500 or higher Very high risk LAB HD(LOINC) 40-60 mg/dL HDL Cholesterol 41 LAB LDL(LOINC) 0-130 mg/dL LDL Cholesterol 66 Performed By: #### TSH, FT4, LIPID, CMP, GFR, A1C #### [address] [address] CMP Collected: 01/31/2018 Status: F Source: [facility] 8:41 AM [facility] REPOSITORY TYPE CODE TESTS RESULT OUT OF REFERENCE UNITS RANGE LAB GLU(LOINC) 80-115 mg/dL Glucose High Level 179 LAB NA(LOINC) 136-145 mmol/L Sodium Level 140 LAB K(LOINC) 3.5-5.1 mmol/L Potassium Level 4.7 LAB CL(LOINC) 98-107 mmol/L Chloride 104 LAB CO2(LOINC) 23-31 mmol/L CO2 29 LAB EBAL(LOINC mEq/L ) Electrolyte Balance 7.0 LAB BUN(LOINC) 7-18 mg/dL BUN High 66 LAB CRE(LOINC) 0.55-1.02 mg/dL Creatinine High Lvl (s) 2.47 LAB BC(LOINC) 7-27 ratio BUN/Creatinine 27 Ratio LAB CA(LOINC) 8.4-10.2 mg/dL Calcium Lvl 9.2 LAB PROT(LOINC 6.4-8.2 G/dL ) Total Protein 7.2 LAB ALB(LOINC) 3.4-4.8 G/dL Albumin Level 3.4 LAB GLB(LOINC) G/dL Globulin 3.8 LAB AG(LOINC) 1.1-2.5 ratio Low A/G Ratio 0.9 LAB BILT(LOINC 0.2-1.0 mg/dL ) Bili Total 0.5 LAB AP(LOINC) 40-135 U/L Alk Phos 119 LAB AST(LOINC) 10-40 U/L AST/SGOT 21 LAB ALT(LOINC) 10-35 U/L ALT/SGPT 15 Performed By: #### TSH, FT4, LIPID, CMP, GFR, A1C #### [address] [address] .GFR Collected: 01/31/2018 Status: F Source: [facility] 8:41 AM [facility] REPOSITORY TYPE CODE TESTS RESULT OUT OF REFERENCE UNITS RANGE LAB GFRAA(LOINC ml/min/1.73 ) sqm GFR 24 Citizen Of [place] Result Comment: GFR Population mean for , Non- Americans Ages 20-29 = 116 mL/min/1.73 sq.m. Ages 30-39 = 107 mL/min/1.73 sq.m. Ages 40-49 = 99 mL/min/1.73 sq.m. Ages 50-59 = 93 mL/min/1.73 sq.m. Ages 60-69 = 85 mL/min/1.73 sq.m. Ages 70+ = 75 mL/min/1.73 sq.m. Chronic Kidney Disease: Less than 60 mL/min/1.73 square meters End Stage Renal Disease: Less than 15 mL/min/1.73 square meters LAB GFRNO(LOINC) ml/min/1.73sqm GFR Non- 19 Result Comment: GFR Population mean for , Non- Americans Ages 20-29 = 116 mL/min/1.73 sq.m. Ages 30-39 = 107 mL/min/1.73 sq.m. Ages 40-49 = 99 mL/min/1.73 sq.m. Ages 50-59 = 93 mL/min/1.73 sq.m. Ages 60-69 = 85 mL/min/1.73 sq.m. Ages 70+ = 75 mL/min/1.73 sq.m. Chronic Kidney Disease: Less than 60 mL/min/1.73 square meters End Stage Renal Disease: Less than 15 mL/min/1.73 square meters Performed By: #### TSH, FT4, LIPID, CMP, GFR, A1C #### [address] [address] A1C Collected: 01/31/2018 Status: F Source: [facility] 8:41 AM [facility] REPOSITORY TYPE CODE TESTS RESULT OUT OF RANGE REFERENCE UNITS LAB A1C(LOINC) 4.5-6.2 % High Hgb A1c 7.6 Performed By: #### TSH, FT4, LIPID, CMP, GFR, A1C #### [address] [address] BMP Collected: 01/28/2018 Status: F Source: [facility] 3:34 PM [facility] REPOSITORY TYPE CODE TESTS RESULT OUT OF REFERENCE UNITS RANGE LAB GLU(LOINC) 80-115 mg/dL Glucose High Level 252 LAB NA(LOINC) 136-145 mmol/L Sodium Level 139 LAB K(LOINC) 3.5-5.1 mmol/L Potassium Level 4.1 LAB CL(LOINC) 98-107 mmol/L Chloride 101 LAB CO2(LOINC) 23-31 mmol/L CO2 30 LAB EBAL(LOINC mEq/L ) Electrolyte Balance 8.0 LAB BUN(LOINC) 7-18 mg/dL BUN High 83 LAB CRE(LOINC) 0.55-1.02 mg/dL Creatinine High Lvl (s) 2.73 LAB BC(LOINC) 7-27 ratio High BUN/Creatinine 30 Ratio LAB CA(LOINC) 8.4-10.2 mg/dL Calcium Lvl 9.4 Performed By: #### BMP, GFR #### [facility] [address] [place] [address] .GFR Collected: 01/28/2018 Status: F Source: [facility] 3:34 PM [facility] REPOSITORY TYPE CODE TESTS RESULT OUT OF REFERENCE UNITS RANGE LAB GFRAA(LOINC ml/min/1.73 ) sqm GFR 21 Citizen Of [place] Result Comment: GFR Population mean for , Non- Americans Ages 20-29 = 116 mL/min/1.73 sq.m. Ages 30-39 = 107 mL/min/1.73 sq.m. Ages 40-49 = 99 mL/min/1.73 sq.m. Ages 50-59 = 93 mL/min/1.73 sq.m. Ages 60-69 = 85 mL/min/1.73 sq.m. Ages 70+ = 75 mL/min/1.73 sq.m. Chronic Kidney Disease: Less than 60 mL/min/1.73 square meters End Stage Renal Disease: Less than 15 mL/min/1.73 square meters LAB GFRNO(LOINC) ml/min/1.73sqm GFR Non- 17 Result Comment: GFR Population mean for , Non- Americans Ages 20-29 = 116 mL/min/1.73 sq.m. Ages 30-39 = 107 mL/min/1.73 sq.m. Ages 40-49 = 99 mL/min/1.73 sq.m. Ages 50-59 = 93 mL/min/1.73 sq.m. Ages 60-69 = 85 mL/min/1.73 sq.m. Ages 70+ = 75 mL/min/1.73 sq.m. Chronic Kidney Disease: Less than 60 mL/min/1.73 square meters End Stage Renal Disease: Less than 15 mL/min/1.73 square meters Performed By: #### BMP, GFR #### [place] [address] VL ARTERIAL ABIS Observed: 01/26/2018 Status: F Source: [facility] ANKLES ONLY 8:29 AM [facility]ATION REPOSITORY ORIGINAL BILATERAL LOWER EXTREMITY ANKLE BRACHIAL INDICES. INDICATION: Patient with hypertension and diabetes, previous history of LEFT lower extremity stent, history of smoking, claudication COMPARISON: 12/11/2013 FINDINGS: The bilateral ankle brachial indices were performed. The RIGHT ankle-brachial index is 0.67. On the prior last study the RIGHT ankle brachial index was 1.50 The LEFT ankle brachial index is 0.56. On the prior last study the LEFT ankle brachial index was 1.26 . IMPRESSION: There is significantly decreased BAO bilaterally which is an interval change from the earlier study. BAO Criteria: 0.97-1.25 or above: Normal 0.75-0.96: Mild claudication 0.50-0.74: Moderate claudication 0.30-0.50: Severe claudication Below 0.30: Rest pain and/or tissue loss. Interpreted By: Chris Tan MD Preliminary Report By: Chris Tan MD Electronically Signed By: Chrsi Tan MD Dictated Date: 01/27/2018 8:21:12 AM Prelim Date: 01/27/2018 8:21:12 AM Sign Date: 01/27/2018 8:25:16 AM RFP Collected: 01/20/2018 Status: F Source: [facility] 11:50 AM [facility] REPOSITORY TYPE CODE TESTS RESULT OUT OF REFERENCE UNITS RANGE LAB GLU(LOINC) 80-115 mg/dL Glucose High Level 284 LAB NA(LOINC) 136-145 mmol/L Low Sodium Level 134 LAB K(LOINC) 3.5-5.1 mmol/L Potassium Level 4.1 LAB CL(LOINC) 98-107 mmol/L Low Chloride 95 LAB CO2(LOINC) 23-31 mmol/L CO2 29 LAB EBAL(LOINC mEq/L ) Electrolyte Balance 10.0 LAB BUN(LOINC) 7-18 mg/dL BUN High 77 LAB CRE(LOINC) 0.55-1.02 mg/dL Creatinine High Lvl (s) 2.97 LAB BC(LOINC) 7-27 ratio BUN/Creatinine 26 Ratio LAB CA(LOINC) 8.4-10.2 mg/dL Calcium Lvl 9.7 LAB PHOS(LOINC 2.3-4.1 mg/dL ) Phosphorus High 4.6 LAB ALB(LOINC) 3.4-4.8 G/dL Albumin Level 3.8 Performed By: #### RFP, GFR #### [address] [address] .GFR Collected: 01/20/2018 Status: F Source: [facility] 11:50 AM [facility]ATION REPOSITORY TYPE CODE TESTS RESULT OUT OF REFERENCE UNITS RANGE LAB GFRAA(LOINC ml/min/1.73 ) sqm GFR 19 Citizen Of [place] Result Comment: GFR Population mean for , Non- Americans Ages 20-29 = 116 mL/min/1.73 sq.m. Ages 30-39 = 107 mL/min/1.73 sq.m. Ages 40-49 = 99 mL/min/1.73 sq.m. Ages 50-59 = 93 mL/min/1.73 sq.m. Ages 60-69 = 85 mL/min/1.73 sq.m. Ages 70+ = 75 mL/min/1.73 sq.m. Chronic Kidney Disease: Less than 60 mL/min/1.73 square meters End Stage Renal Disease: Less than 15 mL/min/1.73 square meters LAB GFRNO(LOINC) ml/min/1.73sqm GFR Non- 16 Result Comment: GFR Population mean for , Non- Americans Ages 20-29 = 116 mL/min/1.73 sq.m. Ages 30-39 = 107 mL/min/1.73 sq.m. Ages 40-49 = 99 mL/min/1.73 sq.m. Ages 50-59 = 93 mL/min/1.73 sq.m. Ages 60-69 = 85 mL/min/1.73 sq.m. Ages 70+ = 75 mL/min/1.73 sq.m. Chronic Kidney Disease: Less than 60 mL/min/1.73 square meters End Stage Renal Disease: Less than 15 mL/min/1.73 square meters Performed By: #### RFP, GFR #### [place] [address] CRUR Collected: 01/20/2018 Status: F Source: [facility] 11:50 AM [facility] REPOSITORY TYPE CODE TESTS RESULT OUT OF REFERENCE UNITS RANGE LAB CRU(LOINC) 28.0-117.0 mg/dL U Creatinine 97.7 Performed By: #### BEV, PRUR #### [address] [address] PRUR Collected: 01/20/2018 Status: F Source: [facility] 11:50 AM [facility] REPOSITORY TYPE CODE TESTS RESULT OUT OF REFERENCE UNITS RANGE LAB PRU(LOINC) 0-11 mg/dL U High Protein 13 Performed By: #### BEV, PRUR #### [place] [address] BMP Collected: 01/07/2018 Status: F Source: [facility] 11:30 AM [facility] REPOSITORY TYPE CODE TESTS RESULT OUT OF REFERENCE UNITS RANGE LAB GLU(LOINC) 80-115 mg/dL Glucose High Level 211 LAB NA(LOINC) 136-145 mmol/L Sodium Level 143 LAB K(LOINC) 3.5-5.1 mmol/L Potassium Level 4.3 LAB CL(LOINC) 98-107 mmol/L Chloride 105 LAB CO2(LOINC) 23-31 mmol/L CO2 28 LAB EBAL(LOINC mEq/L ) Electrolyte Balance 10.0 LAB BUN(LOINC) 7-18 mg/dL BUN High 60 LAB CRE(LOINC) 0.55-1.02 mg/dL Creatinine High Lvl (s) 2.21 LAB BC(LOINC) 7-27 ratio BUN/Creatinine 27 Ratio LAB CA(LOINC) 8.4-10.2 mg/dL Calcium Lvl 9.0 Performed By: #### BMP, GFR #### [address] [address] .GFR Collected: 01/07/2018 Status: F Source: [facility] 11:30 AM [facility] REPOSITORY TYPE CODE TESTS RESULT OUT OF REFERENCE UNITS RANGE LAB GFRAA(LOINC ml/min/1.73 ) sqm GFR 27 Citizen Of [place] Result Comment: GFR Population mean for , Non- Americans Ages 20-29 = 116 mL/min/1.73 sq.m. Ages 30-39 = 107 mL/min/1.73 sq.m. Ages 40-49 = 99 mL/min/1.73 sq.m. Ages 50-59 = 93 mL/min/1.73 sq.m. Ages 60-69 = 85 mL/min/1.73 sq.m. Ages 70+ = 75 mL/min/1.73 sq.m. Chronic Kidney Disease: Less than 60 mL/min/1.73 square meters End Stage Renal Disease: Less than 15 mL/min/1.73 square meters LAB GFRNO(LOINC) ml/min/1.73sqm GFR Non- 22 Result Comment: GFR Population mean for , Non- Americans Ages 20-29 = 116 mL/min/1.73 sq.m. Ages 30-39 = 107 mL/min/1.73 sq.m. Ages 40-49 = 99 mL/min/1.73 sq.m. Ages 50-59 = 93 mL/min/1.73 sq.m. Ages 60-69 = 85 mL/min/1.73 sq.m. Ages 70+ = 75 mL/min/1.73 sq.m. Chronic Kidney Disease: Less than 60 mL/min/1.73 square meters End Stage Renal Disease: Less than 15 mL/min/1.73 square meters Performed By: #### BMP, GFR #### [place] [address] MALBR Collected: 01/07/2018 Status: F Source: [facility] 11:30 AM [facility] REPOSITORY TYPE CODE TESTS RESULT OUT OF REFERENCE UNITS RANGE LAB CRU(LOINC) mg/dL U Creatinine 38.8 LAB MRUR(LOINC mcg/dL ) U Microalb 2282 LAB RMAL(LOINC 0.0-24.9 mcg/mg ) U Ratio High Alb/Cre 58.8 Performed By: #### MALBR #### [address] [address] CBC Collected: 12/28/2017 Status: F Source: [facility] 10:26 AM [facility] REPOSITORY TYPE CODE TESTS RESULT OUT OF REFERENCE UNITS RANGE LAB WBC(LOINC) 4.60-10.80 10 3/mcL WBC 6.00 LAB RBCCT(LOINC 4.20-5.40 10 6/mcL ) Low RBC 2.98 LAB HGB(LOINC) 12.0-16.0 G/dL Low Hgb 10.1 LAB HCT(LOINC) 37.0-47.0 % Low Hct 29.4 LAB MCV(LOINC) 80.0-94.0 fL High MCV 98.7 LAB MCH(LOINC) 27.0-31.2 pg High MCH 33.9 LAB MCHC(LOINC) 33.0-37.0 G/dL MCHC 34.3 LAB RDW(LOINC) 11.5-14.5 % High RDW 15.2 LAB PLT(LOINC) 130-400 10 3/mcL Low Platelet 83 LAB MPV(LOINC) 7.4-10.4 fL MPV 9.7 Performed By: #### CBC, ADIFF, ANEU #### [address] [address] #### CMP, GFR #### [address] [address] .AUTO DIFF Collected: 12/28/2017 Status: F Source: [facility] 10:26 AM [facility] REPOSITORY TYPE CODE TESTS RESULT OUT OF REFERENCE UNITS RANGE LAB DENICE(LOINC) 37.0-80.0 % Neutrophil % 73.0 LAB LYM(LOINC) 10.0-50.0 % Lymphocyte % 15.4 LAB MON(LOINC) 1.7-13.0 % Monocyte % 5.4 LAB EO(LOINC) 0.0-7.0 % Eosinophil % 5.0 LAB BAS(LOINC) 0.0-2.5 % Basophil % 1.2 LAB ABLYM(LOIN 0.77-3.85 10 3/mcL C) Lymphocyte, 0.90 Absolute LAB JAMES(LOINC 0.15-1.00 10 3/mcL ) Monocyte, 0.30 Absolute LAB AEOS(LOINC 0.00-0.40 10 3/mcL ) Eosinophil, 0.30 Absolute LAB ABAS(LOINC 0.00-0.19 10 3/mcL ) Basophil, 0.10 Absolute Performed By: #### CBC, ADIFF, ANEU #### [address] [address] #### CMP, GFR #### [address] [address] .NEUABS Collected: 12/28/2017 Status: F Source: [facility] 10:26 AM [facility] REPOSITORY TYPE CODE TESTS RESULT OUT OF REFERENCE UNITS RANGE LAB ANEU(LOINC) 2.85-6.16 10 3/mcL Neutrophil, 4.40 Absolute Performed By: #### CBC, ABDIAS, ANEU #### [place] [address] [place], [place] [address] #### CMP, GFR #### [place] [address] CMP Collected: 12/28/2017 Status: F Source: [facility] 10:26 AM [facility] REPOSITORY TYPE CODE TESTS RESULT OUT OF REFERENCE UNITS RANGE LAB GLU(LOINC) 80-115 mg/dL Glucose High Level 124 LAB NA(LOINC) 136-145 mmol/L Sodium Level 141 LAB K(LOINC) 3.5-5.1 mmol/L Potassium High Level 5.2 LAB CL(LOINC) 98-107 mmol/L Chloride 105 LAB CO2(LOINC) 23-31 mmol/L CO2 29 LAB EBAL(LOINC mEq/L ) Electrolyte Balance 7.0 LAB BUN(LOINC) 7-18 mg/dL BUN High 48 LAB CRE(LOINC) 0.55-1.02 mg/dL Creatinine High Lvl (s) 2.33 LAB BC(LOINC) 7-27 ratio BUN/Creatinine 21 Ratio LAB CA(LOINC) 8.4-10.2 mg/dL Calcium Lvl 9.2 LAB PROT(LOINC 6.4-8.2 G/dL ) Total Protein 7.5 LAB ALB(LOINC) 3.4-4.8 G/dL Low Albumin Level 2.5 LAB GLB(LOINC) G/dL Globulin 5.0 LAB AG(LOINC) 1.1-2.5 ratio Low A/G Ratio 0.5 LAB BILT(LOINC 0.2-1.0 mg/dL ) Bili Total 0.7 LAB AP(LOINC) 40-135 U/L Alk Phos 96 LAB AST(LOINC) 10-40 U/L AST/SGOT 22 LAB ALT(LOINC) 10-35 U/L ALT/SGPT 18 Performed By: #### CBC, ADIFF, ANEU #### [address] [address] #### CMP, GFR #### [facility] [address] [place] [address] .GFR Collected: 12/28/2017 Status: F Source: [facility] 10:26 AM [facility] REPOSITORY TYPE CODE TESTS RESULT OUT OF REFERENCE UNITS RANGE LAB GFRAA(LOINC ml/min/1.73 ) sqm GFR 25 Citizen Of [place] Result Comment: GFR Population mean for , Non- Americans Ages 20-29 = 116 mL/min/1.73 sq.m. Ages 30-39 = 107 mL/min/1.73 sq.m. Ages 40-49 = 99 mL/min/1.73 sq.m. Ages 50-59 = 93 mL/min/1.73 sq.m. Ages 60-69 = 85 mL/min/1.73 sq.m. Ages 70+ = 75 mL/min/1.73 sq.m. Chronic Kidney Disease: Less than 60 mL/min/1.73 square meters End Stage Renal Disease: Less than 15 mL/min/1.73 square meters LAB GFRNO(LOINC) ml/min/1.73sqm GFR Non- 21 Result Comment: GFR Population mean for , Non- Americans Ages 20-29 = 116 mL/min/1.73 sq.m. Ages 30-39 = 107 mL/min/1.73 sq.m. Ages 40-49 = 99 mL/min/1.73 sq.m. Ages 50-59 = 93 mL/min/1.73 sq.m. Ages 60-69 = 85 mL/min/1.73 sq.m. Ages 70+ = 75 mL/min/1.73 sq.m. Chronic Kidney Disease: Less than 60 mL/min/1.73 square meters End Stage Renal Disease: Less than 15 mL/min/1.73 square meters Performed By: #### CBC, ADIFF, ANEU #### [place] [address] [address] #### CMP, GFR #### [address] [address] US ABD RIGHT UPPER Observed: 12/28/2017 Status: F Source: [facility] 9:10 AM [facility] [place] REPOSITORY * * *Final Report* * * DATE OF EXAM: Dec 28 2017 9:10AM [facility] 1032 - US ABD RIGHT UPPER QUADRANT / PROCEDURE REASON: Chronic viral hepatitis C * * * * Physician Interpretation * * * * EXAM TITLE: US ABD RIGHT UPPER QUADRANT HISTORY: Hepatitis C and cirrhosis of liver. TECHNIQUE: Sonography of the right upper quadrant was performed. Images were obtained and stored in a permanent archive. MQ: [id number] COMPARISON: CT abdomen pelvis on 08/19/2017, ultrasound abdomen on 07/16/2017 RESULT: Pancreas: Normal sonographic appearance in the visualized portions. Portions obscured: tail Liver: Echotexture: Coarse and nodular echotexture Echogenicity: Normal Surface contour: Smooth Lesions: None. Biliary: No intrahepatic biliary duct dilation. CBD: 4 mm. Gallbladder: Surgically absent. -Other: Negative sonographic Sow's sign. Right Kidney: Within normal limits measuring 11.6 cm in length. Ascites: None. IMPRESSION: Coarse and nodular echotexture of the liver, likely secondary to liver cirrhosis. Sample Coordinator: GISELLE Transcribe Date/Time: Dec 28 2017 9:14A Dictated by : LAKESHIA POLK MD This examination was interpreted and the report reviewed and electronically signed by: LAKESHIA POLK MD on Dec 28 2017 9:18AM EST [id number] PROGRESS Observed: 12/28/2017 Status: COMPLETED Source: [place] 9:09 AM [facility] REPOSITORY O ID: [id number] Author: Isabel Hunter Rdms Service: (none) Author Type: (none) Type: Progress Notes Filed: 12/28/2017 9:09 AM Note Text: Radiology Service Progress Note PATIENT NAME: Kalyn Cain DATE OF SERVICE: December 28, 2017 TIME: 9:09 AM PATIENT IDENTITY VERIFICATION COMPLETED USING TWO (2) METHODS: Patient confirmed name verbally and Date of . PATIENT GENDER DATA: Female. status: : No status: NO. PATIENT RELEVANT IMPLANT DATA REVIEWED: Not Applicable RADIOLOGY DEPARTMENT: Ultrasound PERIPHERAL IV DATA: Not applicable SIGNED BY: Isabel Hunter Rdms December 28, 2017 9:09 AM CNCO Observed: 12/28/2017 Status: COMPLETED Source: [place] 12:00 AM [facility] REPOSITORY Letter Text Kalyn Cain Counts Include 234 Beds At [facility] Department of Gastroenterology Zac Pearson MD [address] [place], [place] [address] December 28, 2017 Kalyn Cain [address] [place], [place] [id number] Re: Dear Mrs. Cain: I am writing in follow up to your recent evaluation. The results of your ultrasound from December 2017 shows the cirrhosis with no concerning masses. You need to have this ultrasound every 6 months for life. Please call my office to schedule your next ultrasound for June 2018 and please schedule an office visit with me for January 2018. Sincerely, Zac Pearson MD (Electronically signed to expedite mailing) MG Collected: 12/15/2017 Status: F Source: [facility] 8:38 AM [facility] REPOSITORY TYPE CODE TESTS RESULT OUT OF REFERENCE UNITS RANGE LAB MG(LOINC) 1.8-2.4 mg/dL Magnesium Lvl 2.4 Performed By: #### MG #### [place] [address] TSH Collected: 12/15/2017 Status: F Source: [facility] 8:36 AM [facility] REPOSITORY TYPE CODE TESTS RESULT OUT OF RANGE REFERENCE UNITS LAB TSH(LOINC) 0.36-3.74 mcIU/mL TSH 1.74 Performed By: #### TSH, A1C, LIPID, CMP, GFR #### [place] [address] A1C Collected: 12/15/2017 Status: F Source: [facility] 8:36 AM [facility] REPOSITORY TYPE CODE TESTS RESULT OUT OF RANGE REFERENCE UNITS LAB A1C(LOINC) 4.5-6.2 % High Hgb A1c 7.6 Performed By: #### TSH, A1C, LIPID, CMP, GFR #### [place] [address] LIPID Collected: 12/15/2017 Status: F [facility] 8:36 AM [facility] REPOSITORY TYPE CODE TESTS RESULT OUT OF REFERENCE UNITS RANGE LAB CHOL(LOINC 0-200 mg/dL ) Cholesterol 119 Result Comment: Cholesterol Reference Interval: Less than 200 Desirable 200-239 Borderline high risk 240 and above High risk LAB TRIG(LOINC) 0-150 mg/dL Triglycerides 121 Result Comment: Triglyceride Reference Interval: Less than 150 Normal 150-199 Borderline high risk 200-499 High risk 500 or higher Very high risk LAB HD(LOINC) 40-60 mg/dL HDL Cholesterol 43 LAB LDL(LOINC) 0-130 mg/dL LDL Cholesterol 52 Performed By: #### TSH, A1C, LIPID, CMP, GFR #### [address] [address] CMP Collected: 12/15/2017 Status: F Source: [facility] 8:36 AM [facility] REPOSITORY TYPE CODE TESTS RESULT OUT OF REFERENCE UNITS RANGE LAB GLU(LOINC) 80-115 mg/dL Glucose High Level 292 LAB NA(LOINC) 136-145 mmol/L Sodium Level 139 LAB K(LOINC) 3.5-5.1 mmol/L Potassium Level 5.1 LAB CL(LOINC) 98-107 mmol/L Chloride 104 LAB CO2(LOINC) 23-31 mmol/L CO2 29 LAB EBAL(LOINC mEq/L ) Electrolyte Balance 6.0 LAB BUN(LOINC) 7-18 mg/dL BUN High 48 LAB CRE(LOINC) 0.55-1.02 mg/dL Creatinine High Lvl (s) 2.55 LAB BC(LOINC) 7-27 ratio BUN/Creatinine 19 Ratio LAB CA(LOINC) 8.4-10.2 mg/dL Calcium Lvl 9.6 LAB PROT(LOINC 6.4-8.2 G/dL ) Total Protein 7.4 LAB ALB(LOINC) 3.4-4.8 G/dL Albumin Level 3.5 LAB GLB(LOINC) G/dL Globulin 3.9 LAB AG(LOINC) 1.1-2.5 ratio Low A/G Ratio 0.9 LAB BILT(LOINC 0.2-1.0 mg/dL ) Bili Total 0.6 LAB AP(LOINC) 40-135 U/L Alk Phos High 156 LAB AST(LOINC) 10-40 U/L AST/SGOT 19 LAB ALT(LOINC) 10-35 U/L ALT/SGPT 18 Performed By: #### TSH, A1C, LIPID, CMP, GFR #### [address] [address] .GFR Collected: 12/15/2017 Status: F Source: [facility] 8:36 AM [facility] REPOSITORY TYPE CODE TESTS RESULT OUT OF REFERENCE UNITS RANGE LAB GFRAA(LOINC ml/min/1.73 ) sqm GFR 23 Citizen Of [place] Result Comment: GFR Population mean for , Non- Americans Ages 20-29 = 116 mL/min/1.73 sq.m. Ages 30-39 = 107 mL/min/1.73 sq.m. Ages 40-49 = 99 mL/min/1.73 sq.m. Ages 50-59 = 93 mL/min/1.73 sq.m. Ages 60-69 = 85 mL/min/1.73 sq.m. Ages 70+ = 75 mL/min/1.73 sq.m. Chronic Kidney Disease: Less than 60 mL/min/1.73 square meters End Stage Renal Disease: Less than 15 mL/min/1.73 square meters LAB GFRNO(LOINC) ml/min/1.73sqm GFR Non- 19 Result Comment: GFR Population mean for , Non- Americans Ages 20-29 = 116 mL/min/1.73 sq.m. Ages 30-39 = 107 mL/min/1.73 sq.m. Ages 40-49 = 99 mL/min/1.73 sq.m. Ages 50-59 = 93 mL/min/1.73 sq.m. Ages 60-69 = 85 mL/min/1.73 sq.m. Ages 70+ = 75 mL/min/1.73 sq.m. Chronic Kidney Disease: Less than 60 mL/min/1.73 square meters End Stage Renal Disease: Less than 15 mL/min/1.73 square meters Performed By: #### TSH, A1C, LIPID, CMP, GFR #### [address] [address] CBC Collected: 12/01/2017 Status: F Source: [facility] 8:32 AM [facility] REPOSITORY TYPE CODE TESTS RESULT OUT OF REFERENCE UNITS RANGE LAB WBC(LOINC) 4.60-10.80 10 3/mcL WBC 5.10 LAB RBCCT(LOINC 4.20-5.40 10 6/mcL ) Low RBC 2.87 LAB HGB(LOINC) 12.0-16.0 G/dL Low Hgb 9.9 LAB HCT(LOINC) 37.0-47.0 % Low Hct 28.1 LAB MCV(LOINC) 80.0-94.0 fL High MCV 97.6 LAB MCH(LOINC) 27.0-31.2 pg High MCH 34.3 LAB MCHC(LOINC) 33.0-37.0 G/dL MCHC 35.2 LAB RDW(LOINC) 11.5-14.5 % High RDW 15.0 LAB PLT(LOINC) 130-400 10 3/mcL Low Platelet 74 LAB MPV(LOINC) 7.4-10.4 fL MPV 9.7 Performed By: #### CBC, ADIFF, ANEU #### [address] [address] #### RFP, GFR, VIDH, PTH #### [address] [address] .AUTO DIFF Collected: 12/01/2017 Status: F Source: [facility] 8:32 AM [facility] REPOSITORY TYPE CODE TESTS RESULT OUT OF REFERENCE UNITS RANGE LAB DENICE(LOINC) 37.0-80.0 % Neutrophil % 66.2 LAB LYM(LOINC) 10.0-50.0 % Lymphocyte % 20.6 LAB MON(LOINC) 1.7-13.0 % Monocyte % 5.1 LAB EO(LOINC) 0.0-7.0 % Eosinophil % 6.9 LAB BAS(LOINC) 0.0-2.5 % Basophil % 1.2 LAB ABLYM(LOIN 0.77-3.85 10 3/mcL C) Lymphocyte, 1.10 Absolute LAB JAMES(LOINC 0.15-1.00 10 3/mcL ) Monocyte, 0.30 Absolute LAB AEOS(LOINC 0.00-0.40 10 3/mcL ) Eosinophil, 0.40 Absolute LAB ABAS(LOINC 0.00-0.19 10 3/mcL ) Basophil, 0.10 Absolute Performed By: #### CBC, ADIFF, ANEU #### [address] [address] #### RFP, GFR, VIDH, PTH #### [address] [address] .NEUABS Collected: 12/01/2017 Status: F Source: [facility] 8:32 AM [facility] REPOSITORY TYPE CODE TESTS RESULT OUT OF REFERENCE UNITS RANGE LAB ANEU(LOINC) 2.85-6.16 10 3/mcL Neutrophil, 3.40 Absolute Performed By: #### CBC, RAYMUNDOIFF, ANEU #### [place] [address] [place], [place] [address] #### RFP, GFR, VIDH, PTH #### [address] [address] RFP Collected: 12/01/2017 Status: F Source: [facility] 8:32 AM [facility] REPOSITORY TYPE CODE TESTS RESULT OUT OF REFERENCE UNITS RANGE LAB GLU(LOINC) 80-115 mg/dL Glucose Level 85 LAB NA(LOINC) 136-145 mmol/L Sodium Level 143 LAB K(LOINC) 3.5-5.1 mmol/L Potassium Level 4.7 LAB CL(LOINC) 98-107 mmol/L Chloride 105 LAB CO2(LOINC) 23-31 mmol/L CO2 31 LAB EBAL(LOINC mEq/L ) Electrolyte Balance 7.0 LAB BUN(LOINC) 7-18 mg/dL BUN High 55 LAB CRE(LOINC) 0.55-1.02 mg/dL Creatinine High Lvl (s) 2.34 LAB BC(LOINC) 7-27 ratio BUN/Creatinine 24 Ratio LAB CA(LOINC) 8.4-10.2 mg/dL Calcium Lvl 8.6 LAB PHOS(LOINC 2.3-4.1 mg/dL ) Phosphorus High 5.1 LAB ALB(LOINC) 3.4-4.8 G/dL Albumin Level 3.4 Performed By: #### GIOVANNI, RAYMUNDOIFF, ANEU #### [place] [address] [address] #### RFP, GFR, VIDH, PTH #### [address] [address] .GFR Collected: 12/01/2017 Status: F Source: [facility] 8:32 AM [facility] REPOSITORY TYPE CODE TESTS RESULT OUT OF REFERENCE UNITS RANGE LAB GFRAA(LOINC ml/min/1.73 ) sqm GFR 25 Citizen Of [place] Result Comment: GFR Population mean for , Non- Americans Ages 20-29 = 116 mL/min/1.73 sq.m. Ages 30-39 = 107 mL/min/1.73 sq.m. Ages 40-49 = 99 mL/min/1.73 sq.m. Ages 50-59 = 93 mL/min/1.73 sq.m. Ages 60-69 = 85 mL/min/1.73 sq.m. Ages 70+ = 75 mL/min/1.73 sq.m. Chronic Kidney Disease: Less than 60 mL/min/1.73 square meters End Stage Renal Disease: Less than 15 mL/min/1.73 square meters LAB GFRNO(LOINC) ml/min/1.73sqm GFR Non- 21 Result Comment: GFR Population mean for , Non- Americans Ages 20-29 = 116 mL/min/1.73 sq.m. Ages 30-39 = 107 mL/min/1.73 sq.m. Ages 40-49 = 99 mL/min/1.73 sq.m. Ages 50-59 = 93 mL/min/1.73 sq.m. Ages 60-69 = 85 mL/min/1.73 sq.m. Ages 70+ = 75 mL/min/1.73 sq.m. Chronic Kidney Disease: Less than 60 mL/min/1.73 square meters End Stage Renal Disease: Less than 15 mL/min/1.73 square meters Performed By: #### ABDIAS DAVILA, ANEU #### [address] [address] #### RFP, GFR, VIDH, PTH #### [address] [address] VIDH Collected: 12/01/2017 Status: F Source: [facility] 8:32 AM [facility] REPOSITORY TYPE CODE TESTS RESULT OUT OF RANGE REFERENCE UNITS LAB VIDH(LOINC) ng/mL Vit. D 31 25-Hydroxy Result Comment: Interpretive Values Based on Total 25(OH)D: Severe Deficiency <20 ng/mL Mild to Moderate Deficiency 20-30 ng/mL Optimum Levels 30-100 ng/mL Toxicity Possible >100 ng/mL Performed By: #### ABDIAS DAVILA, ANEU #### [address] [address] #### RFP, GFR, VIDH, PTH #### [address] [address] PTH Collected: 12/01/2017 Status: F Source: [facility] 8:32 AM [facility] REPOSITORY TYPE CODE TESTS RESULT OUT OF REFERENCE UNITS RANGE LAB PTH(LOINC) 18.5-88.0 pg/mL High PTH, Intact 96.1 Performed By: #### CBC, ADIFF, ANEU #### [place] [address] [place], [place] [address] #### RFP, GFR, VIDH, PTH #### [address] [address] CRUR Collected: 12/01/2017 Status: F Source: [facility] 8:32 AM [facility] REPOSITORY TYPE CODE TESTS RESULT OUT OF REFERENCE UNITS RANGE LAB CRU(LOINC) 28.0-117.0 mg/dL U Creatinine 90.2 Performed By: #### CRUR, PRUR #### [address] [address] PRUR Collected: 12/01/2017 Status: F Source: [facility] 8:32 AM [facility] REPOSITORY TYPE CODE TESTS RESULT OUT OF REFERENCE UNITS RANGE LAB PRU(LOINC) 0-11 mg/dL U High Protein 19 Performed By: #### CRUR, PRUR #### [place] [address] CBC Collected: 11/17/2017 Status: F Source: [facility] 4:28 PM [facility] REPOSITORY TYPE CODE TESTS RESULT OUT OF REFERENCE UNITS RANGE LAB WBC(LOINC) 4.60-10.80 10 3/mcL WBC 5.90 LAB RBCCT(LOINC 4.20-5.40 10 6/mcL ) Low RBC 3.18 LAB HGB(LOINC) 12.0-16.0 G/dL Low Hgb 10.9 LAB HCT(LOINC) 37.0-47.0 % Low Hct 31.0 LAB MCV(LOINC) 80.0-94.0 fL High MCV 97.4 LAB MCH(LOINC) 27.0-31.2 pg High MCH 34.2 LAB MCHC(LOINC) 33.0-37.0 G/dL MCHC 35.1 LAB RDW(LOINC) 11.5-14.5 % High RDW 15.5 LAB PLT(LOINC) 130-400 10 3/mcL Low Platelet 100 LAB MPV(LOINC) 7.4-10.4 fL MPV 9.4 Performed By: #### CBC, ADIFF, ANEU #### [address] [address] #### CMP, GFR #### [address] [address] .AUTO DIFF Collected: 11/17/2017 Status: F Source: [facility] 4:28 PM [facility] REPOSITORY TYPE CODE TESTS RESULT OUT OF REFERENCE UNITS RANGE LAB DENICE(LOINC) 37.0-80.0 % Neutrophil % 69.2 LAB LYM(LOINC) 10.0-50.0 % Lymphocyte % 18.7 LAB MON(LOINC) 1.7-13.0 % Monocyte % 5.2 LAB EO(LOINC) 0.0-7.0 % Eosinophil % 5.6 LAB BAS(LOINC) 0.0-2.5 % Basophil % 1.3 LAB ABLYM(LOIN 0.77-3.85 10 3/mcL C) Lymphocyte, 1.10 Absolute LAB JAMES(LOINC 0.15-1.00 10 3/mcL ) Monocyte, 0.30 Absolute LAB AEOS(LOINC 0.00-0.40 10 3/mcL ) Eosinophil, 0.30 Absolute LAB ABAS(LOINC 0.00-0.19 10 3/mcL ) Basophil, 0.10 Absolute Performed By: #### CBC, ADIFF, ANEU #### [address] [address] #### CMP, GFR #### [place] [address] .NEUABS Collected: 11/17/2017 Status: F Source: [facility] 4:28 [facility] REPOSITORY TYPE CODE TESTS RESULT OUT OF REFERENCE UNITS RANGE LAB ANEU(LOINC) 2.85-6.16 10 3/mcL Neutrophil, 4.10 Absolute Performed By: #### CBC, ADIFF, ANEU #### [address] [address] #### CMP, GFR #### [place] [address] CMP Collected: 11/17/2017 Status: F Source: [facility] 4:28 PM [facility] REPOSITORY TYPE CODE TESTS RESULT OUT OF REFERENCE UNITS RANGE LAB GLU(LOINC) 80-115 mg/dL Glucose High Level 119 LAB NA(LOINC) 136-145 mmol/L Sodium Level 139 LAB K(LOINC) 3.5-5.1 mmol/L Potassium Level 4.7 LAB CL(LOINC) 98-107 mmol/L Chloride 102 LAB CO2(LOINC) 23-31 mmol/L CO2 31 LAB EBAL(LOINC mEq/L ) Electrolyte Balance 6.0 LAB BUN(LOINC) 7-18 mg/dL BUN High 45 LAB CRE(LOINC) 0.55-1.02 mg/dL Creatinine High Lvl (s) 2.00 LAB BC(LOINC) 7-27 ratio BUN/Creatinine 22 Ratio LAB CA(LOINC) 8.4-10.2 mg/dL Calcium Lvl 9.1 LAB PROT(LOINC 6.4-8.2 G/dL ) Total Protein 7.6 LAB ALB(LOINC) 3.4-4.8 G/dL Albumin Level 3.6 LAB GLB(LOINC) G/dL Globulin 4.0 LAB AG(LOINC) 1.1-2.5 ratio Low A/G Ratio 0.9 LAB BILT(LOINC 0.2-1.0 mg/dL ) Bili Total 0.7 LAB AP(LOINC) 40-135 U/L Alk Phos High 139 LAB AST(LOINC) 10-40 U/L AST/SGOT 23 LAB ALT(LOINC) 10-35 U/L ALT/SGPT High 36 Performed By: #### CBC, ADIFF, ANEU #### [place] [id number] [place], [place] [address] #### CMP, GFR #### [place] [address] .GFR Collected: 11/17/2017 Status: F Source: [facility] 4:28 PM [facility] REPOSITORY TYPE CODE TESTS RESULT OUT OF REFERENCE UNITS RANGE LAB GFRAA(LOINC ml/min/1.73 ) sqm GFR 30 Citizen Of [place] Result Comment: GFR Population mean for , Non- Americans Ages 20-29 = 116 mL/min/1.73 sq.m. Ages 30-39 = 107 mL/min/1.73 sq.m. Ages 40-49 = 99 mL/min/1.73 sq.m. Ages 50-59 = 93 mL/min/1.73 sq.m. Ages 60-69 = 85 mL/min/1.73 sq.m. Ages 70+ = 75 mL/min/1.73 sq.m. Chronic Kidney Disease: Less than 60 mL/min/1.73 square meters End Stage Renal Disease: Less than 15 mL/min/1.73 square meters LAB GFRNO(LOINC) ml/min/1.73sqm GFR Non- 25 Result Comment: GFR Population mean for , Non- Americans Ages 20-29 = 116 mL/min/1.73 sq.m. Ages 30-39 = 107 mL/min/1.73 sq.m. Ages 40-49 = 99 mL/min/1.73 sq.m. Ages 50-59 = 93 mL/min/1.73 sq.m. Ages 60-69 = 85 mL/min/1.73 sq.m. Ages 70+ = 75 mL/min/1.73 sq.m. Chronic Kidney Disease: Less than 60 mL/min/1.73 square meters End Stage Renal Disease: Less than 15 mL/min/1.73 square meters Performed By: #### CBC, ADIFF, ANEU #### [facility] [address] [place], [place] [address] #### CMP, GFR #### [facility] [address] [place] [address] BMP Collected: 11/16/2017 Status: F Source: [facility] 8:50 AM [facility] REPOSITORY TYPE CODE TESTS RESULT OUT OF REFERENCE UNITS RANGE LAB GLU(LOINC) 80-115 mg/dL Glucose High Level 269 LAB NA(LOINC) 136-145 mmol/L Sodium Level 138 LAB K(LOINC) 3.5-5.1 mmol/L Potassium Level 4.7 LAB CL(LOINC) 98-107 mmol/L Chloride 102 LAB CO2(LOINC) 23-31 mmol/L CO2 29 LAB EBAL(LOINC mEq/L ) Electrolyte Balance 7.0 LAB BUN(LOINC) 7-18 mg/dL BUN High 43 LAB CRE(LOINC) 0.55-1.02 mg/dL Creatinine High Lvl (s) 2.03 LAB BC(LOINC) 7-27 ratio BUN/Creatinine 21 Ratio LAB CA(LOINC) 8.4-10.2 mg/dL Calcium Lvl 9.1 Performed By: #### MANJU, GFR #### [address] [address] .GFR Collected: 11/16/2017 Status: F Source: [facility] 8:50 AM [facility] REPOSITORY TYPE CODE TESTS RESULT OUT OF REFERENCE UNITS RANGE LAB GFRAA(LOINC ml/min/1.73 ) sqm GFR 30 Citizen Of [place] Result Comment: GFR Population mean for , Non- Americans Ages 20-29 = 116 mL/min/1.73 sq.m. Ages 30-39 = 107 mL/min/1.73 sq.m. Ages 40-49 = 99 mL/min/1.73 sq.m. Ages 50-59 = 93 mL/min/1.73 sq.m. Ages 60-69 = 85 mL/min/1.73 sq.m. Ages 70+ = 75 mL/min/1.73 sq.m. Chronic Kidney Disease: Less than 60 mL/min/1.73 square meters End Stage Renal Disease: Less than 15 mL/min/1.73 square meters LAB GFRNO(LOINC) ml/min/1.73sqm GFR Non- 24 Result Comment: GFR Population mean for , Non- Americans Ages 20-29 = 116 mL/min/1.73 sq.m. Ages 30-39 = 107 mL/min/1.73 sq.m. Ages 40-49 = 99 mL/min/1.73 sq.m. Ages 50-59 = 93 mL/min/1.73 sq.m. Ages 60-69 = 85 mL/min/1.73 sq.m. Ages 70+ = 75 mL/min/1.73 sq.m. Chronic Kidney Disease: Less than 60 mL/min/1.73 square meters End Stage Renal Disease: Less than 15 mL/min/1.73 square meters Performed By: #### BMP, GFR #### [address] [address] CMP Collected: 11/08/2017 Status: F Source: [facility] 4:33 AM [facility] REPOSITORY TYPE CODE TESTS RESULT OUT OF REFERENCE UNITS RANGE LAB GLU(LOINC) 82-115 mg/dL Glucose High Level 149 LAB NA(LOINC) 136-145 mEq/L Sodium Level 140 LAB K(LOINC) 3.5-5.0 mEq/L Potassium Level 4.5 LAB CL(LOINC) 98-110 mEq/L Chloride 102 LAB CO2(LOINC) 22-32 mEq/L CO2 31 LAB EBAL(LOINC 4.0-15.0 mEq/L ) Electrolyte Balance 7.0 LAB BUN(LOINC) 8.0-22.0 mg/dL BUN High 54.0 LAB CRE(LOINC) 0.50-1.20 mg/dL Creatinine High Lvl (s) 1.82 LAB BC(LOINC) 10.0-22.0 ratio High BUN/Creatinine 29.7 Ratio LAB CA(LOINC) 8.4-10.1 mg/dL Calcium Lvl 8.8 LAB PROT(LOINC 6.0-8.5 G/dL ) Total Protein 7.3 LAB ALB(LOINC) 3.2-4.8 G/dL Albumin Level 3.3 LAB GLB(LOINC) 1.5-3.8 G/dL Globulin High 4.0 LAB AG(LOINC) 0.9-1.6 ratio Low A/G Ratio 0.8 LAB BILT(LOINC 0.2-1.2 mg/dL ) Bili Total 0.6 LAB AP(LOINC) 38-126 U/L Alk Phos 122 LAB AST(LOINC) 8-34 U/L AST/SGOT 34 LAB ALT(LOINC) 10-49 U/L ALT/SGPT High 171 Performed By: #### CMP, GFR, CBC, ADIFF, ANEU #### [place] [address] .GFR Collected: 11/08/2017 Status: F Source: [facility] 4:33 AM [facility] REPOSITORY TYPE CODE TESTS RESULT OUT OF REFERENCE UNITS RANGE LAB GFRAA(LOINC ml/min/1.73 ) sqm GFR 34 Citizen Of [place] Result Comment: GFR Population mean for , Non- Americans Ages 20-29 = 116 mL/min/1.73 sq.m. Ages 30-39 = 107 mL/min/1.73 sq.m. Ages 40-49 = 99 mL/min/1.73 sq.m. Ages 50-59 = 93 mL/min/1.73 sq.m. Ages 60-69 = 85 mL/min/1.73 sq.m. Ages 70+ = 75 mL/min/1.73 sq.m. Chronic Kidney Disease: Less than 60 mL/min/1.73 square meters End Stage Renal Disease: Less than 15 mL/min/1.73 square meters LAB GFRNO(LOINC) ml/min/1.73sqm GFR Non- 28 Result Comment: GFR Population mean for , Non- Americans Ages 20-29 = 116 mL/min/1.73 sq.m. Ages 30-39 = 107 mL/min/1.73 sq.m. Ages 40-49 = 99 mL/min/1.73 sq.m. Ages 50-59 = 93 mL/min/1.73 sq.m. Ages 60-69 = 85 mL/min/1.73 sq.m. Ages 70+ = 75 mL/min/1.73 sq.m. Chronic Kidney Disease: Less than 60 mL/min/1.73 square meters End Stage Renal Disease: Less than 15 mL/min/1.73 square meters Performed By: #### CMP, GFR, CBC, ADIFF, ANEU #### [place] [address] CBC Collected: 11/08/2017 Status: F Source: [facility] 4:33 AM [facility] REPOSITORY TYPE CODE TESTS RESULT OUT OF REFERENCE UNITS RANGE LAB WBC(LOINC) 4.50-10.80 10 3/mcL Low WBC 4.10 LAB RBCCT(LOINC 4.10-5.30 10 6/mcL ) Low RBC 2.79 LAB HGB(LOINC) 12.0-16.0 G/dL Low Hgb 9.3 LAB HCT(LOINC) 34.0-46.0 % Low Hct 27.6 LAB MCV(LOINC) 80.0-99.0 fL MCV 99.0 LAB MCH(LOINC) 27.0-33.0 pg High MCH 33.4 LAB MCHC(LOINC) 32.0-36.0 G/dL MCHC 33.7 LAB RDW(LOINC) 11.5-15.5 % High RDW 16.0 LAB PLT(LOINC) 150-450 10 3/mcL Low Platelet 59 LAB MPV(LOINC) 6.6-10.5 fL MPV 9.6 Performed By: #### CMP, GFR, CBC, ADIFF, ANEU #### [address] [address] .AUTO DIFF Collected: 11/08/2017 Status: F Source: [facility] 4:33 AM [facility] REPOSITORY TYPE CODE TESTS RESULT OUT OF REFERENCE UNITS RANGE LAB DENICE(LOINC) 50.0-75.0 % Neutrophil % 70.1 LAB LYM(LOINC) 20.0-40.0 % Low Lymphocyte % 17.1 LAB MON(LOINC) 2.0-13.0 % Monocyte % 6.5 LAB EO(LOINC) 0.0-6.0 % Eosinophil % 5.2 LAB BAS(LOINC) 0.0-2.5 % Basophil % 1.1 LAB ABLYM(LOIN 0.90-4.32 10 3/mcL C) Low Lymphocyte, 0.70 Absolute LAB JAMES(LOINC 0.09-1.40 10 3/mcL ) Monocyte, 0.30 Absolute LAB AEOS(LOINC 0.00-0.65 10 3/mcL ) Eosinophil, 0.20 Absolute LAB ABAS(LOINC 0.00-0.27 10 3/mcL ) Basophil, 0.00 Absolute Performed By: #### CMP, GFR, CBC, ADIFF, ANEU #### [place] [address] .NEUABS Collected: 11/08/2017 Status: F Source: [facility] 4:33 AM [facility] REPOSITORY TYPE CODE TESTS RESULT OUT OF REFERENCE UNITS RANGE LAB ANEU(LOINC) 2.25-8.10 10 3/mcL Neutrophil, 2.90 Absolute Performed By: #### CMP, GFR, CBC, ADIFF, ANEU #### [place] [address] TROPI Collected: 11/07/2017 Status: F Source: [facility] 9:56 AM [facility] REPOSITORY TYPE CODE TESTS RESULT OUT OF REFERENCE UNITS RANGE LAB TROPI(LOINC 0.000-0.040 ng/mL ) High Troponin I 0.123 Result Comment: Troponin I reference ranges (01/01/14): 0.00-0.040 ng/mL Negative and non-diagnostic. >0.040 ng/mL Consistent with cardiac damage, increased clinical risk and possibility of myocardial infarction. Serial measurements, a rise & fall in test results, clinical history, appropriate symptoms and/or ECG changes may help assess possibility of MN. *Other non-acute coronary syndrome conditions such as CHF, myocarditis, pulmonary emboli, sepsis and cardiac surgery could result in myocardial damage and increased troponin levels. Performed By: #### TROPI #### [place] [address] XR CHEST 1 VIEW Observed: 11/07/2017 Status: F Source: [facility] 4:59 AM [facility] REPOSITORY ORIGINAL Clinical history: Congestive heart failure. COMPARISON: Chest x-ray on 11/06/2017. Portable AP radiograph of the chest was obtained at 6:00 AM. LEFT subclavian defibrillator is in place. Patient has had sternotomy. Cardiomegaly is stable. No acute infiltrate or pulmonary edema is present. There is no significant pleural fluid. No visible pneumothorax is resident. There has been no change compared with chest x-ray on the prior day. IMPRESSION: Stable cardiomegaly. No sign of acute process. Interpreted By: Crow Do MD Preliminary Report By: Crow Do MD Electronically Signed By: Crow Do MD Dictated Date: 11/07/2017 7:12:04 AM Prelim Date: 11/07/2017 7:12:04 AM Sign Date: 11/07/2017 7:13:05 AM CBC Collected: 11/07/2017 Status: F Source: [facility] 3:56 AM [facility] REPOSITORY TYPE CODE TESTS RESULT OUT OF REFERENCE UNITS RANGE LAB WBC(LOINC) 4.50-10.80 10 3/mcL Low WBC 4.10 LAB RBCCT(LOINC 4.10-5.30 10 6/mcL ) Low RBC 2.62 LAB HGB(LOINC) 12.0-16.0 G/dL Low Hgb 8.8 LAB HCT(LOINC) 34.0-46.0 % Low Hct 26.2 LAB MCV(LOINC) 80.0-99.0 fL High MCV 99.9 LAB MCH(LOINC) 27.0-33.0 pg High MCH 33.4 LAB MCHC(LOINC) 32.0-36.0 G/dL MCHC 33.5 LAB RDW(LOINC) 11.5-15.5 % High RDW 16.4 LAB PLT(LOINC) 150-450 10 3/mcL Low Platelet 57 LAB MPV(LOINC) 6.6-10.5 fL MPV 10.2 Performed By: #### CBC, ADIFF, ANEU, BMP, GFR #### [place] [address] .AUTO DIFF Collected: 11/07/2017 Status: F Source: [facility] 3:56 AM [facility] REPOSITORY TYPE CODE TESTS RESULT OUT OF REFERENCE UNITS RANGE LAB DENICE(LOINC) 50.0-75.0 % Neutrophil % 64.6 LAB LYM(LOINC) 20.0-40.0 % Lymphocyte % 21.9 LAB MON(LOINC) 2.0-13.0 % Monocyte % 6.3 LAB EO(LOINC) 0.0-6.0 % High Eosinophil % 6.2 LAB BAS(LOINC) 0.0-2.5 % Basophil % 1.0 LAB ABLYM(LOIN 0.90-4.32 10 3/mcL C) Lymphocyte, 0.90 Absolute LAB JAMES(LOINC 0.09-1.40 10 3/mcL ) Monocyte, 0.30 Absolute LAB AEOS(LOINC 0.00-0.65 10 3/mcL ) Eosinophil, 0.30 Absolute LAB ABAS(LOINC 0.00-0.27 10 3/mcL ) Basophil, 0.00 Absolute Performed By: #### CBC, ADIFF, ANEU, BMP, GFR #### [place] [address] .NEUABS Collected: 11/07/2017 Status: F Source: [facility] 3:56 AM [facility] REPOSITORY TYPE CODE TESTS RESULT OUT OF REFERENCE UNITS RANGE LAB ANEU(LOINC) 2.25-8.10 10 3/mcL Neutrophil, 2.60 Absolute Performed By: #### CBC, ADIFF, ANEU, BMP, GFR #### [place] [address] BMP Collected: 11/07/2017 Status: F Source: [facility] 3:56 AM [facility] REPOSITORY TYPE CODE TESTS RESULT OUT OF REFERENCE UNITS RANGE LAB GLU(LOINC) 82-115 mg/dL Glucose High Level 118 LAB NA(LOINC) 136-145 mEq/L Sodium Level 142 LAB K(LOINC) 3.5-5.0 mEq/L Potassium Level 4.3 LAB CL(LOINC) 98-110 mEq/L Chloride 106 LAB CO2(LOINC) 22-32 mEq/L CO2 28 LAB EBAL(LOINC 4.0-15.0 mEq/L ) Electrolyte Balance 8.0 LAB BUN(LOINC) 8.0-22.0 mg/dL BUN High 56.0 LAB CRE(LOINC) 0.50-1.20 mg/dL Creatinine High Lvl (s) 1.94 LAB BC(LOINC) 10.0-22.0 ratio High BUN/Creatinine 28.9 Ratio LAB CA(LOINC) 8.4-10.1 mg/dL Low Calcium Lvl 8.3 Performed By: #### CBC, ADIFF, ANEU, BMP, GFR #### [place] [address] .GFR Collected: 11/07/2017 Status: F Source: [facility] 3:56 AM [facility] REPOSITORY TYPE CODE TESTS RESULT OUT OF REFERENCE UNITS RANGE LAB GFRAA(LOINC ml/min/1.73 ) sqm GFR 31 Citizen Of [place] Result Comment: GFR Population mean for , Non- Americans Ages 20-29 = 116 mL/min/1.73 sq.m. Ages 30-39 = 107 mL/min/1.73 sq.m. Ages 40-49 = 99 mL/min/1.73 sq.m. Ages 50-59 = 93 mL/min/1.73 sq.m. Ages 60-69 = 85 mL/min/1.73 sq.m. Ages 70+ = 75 mL/min/1.73 sq.m. Chronic Kidney Disease: Less than 60 mL/min/1.73 square meters End Stage Renal Disease: Less than 15 mL/min/1.73 square meters LAB GFRNO(LOINC) ml/min/1.73sqm GFR Non- 26 Result Comment: GFR Population mean for , Non- Americans Ages 20-29 = 116 mL/min/1.73 sq.m. Ages 30-39 = 107 mL/min/1.73 sq.m. Ages 40-49 = 99 mL/min/1.73 sq.m. Ages 50-59 = 93 mL/min/1.73 sq.m. Ages 60-69 = 85 mL/min/1.73 sq.m. Ages 70+ = 75 mL/min/1.73 sq.m. Chronic Kidney Disease: Less than 60 mL/min/1.73 square meters End Stage Renal Disease: Less than 15 mL/min/1.73 square meters Performed By: #### CBC, ADIFF, ANEU, BMP, GFR #### [facility] [address] [place] [address] TSH Collected: 11/07/2017 Status: F Source: [facility] 3:56 AM [facility] REPOSITORY TYPE CODE TESTS RESULT OUT OF RANGE REFERENCE UNITS LAB TSH(LOINC) 0.360-3.740 mcIU/mL TSH 1.010 Result Comment: Please note ? as of 11/07/16 new pediatric reference intervals were added for this test. Performed By: #### TSH, LIPID #### [address] [address] LIPID Collected: 11/07/2017 Status: F Source: [facility] 3:56 AM [facility] REPOSITORY TYPE CODE TESTS RESULT OUT OF REFERENCE UNITS RANGE LAB CHOL(LOINC 50-199 mg/dL ) Cholesterol 103 Result Comment: Cholesterol Reference Interval: Less than 200 Desirable 200-239 Borderline high risk 240 and above High risk LAB TRIG(LOINC) 3-149 mg/dL Triglycerides 74 Result Comment: Triglyceride Reference Interval: Less than 150 Normal 150-199 Borderline high risk 200-499 High risk 500 or higher Very high risk LAB HD(LOINC) 40-59 mg/dL HDL Cholesterol 45 Result Comment: HDL Reference Interval: Less than 40 Low - high risk 60 or above Optimal/lowers risk LAB LDL(LOINC) 0-129 mg/dL LDL Cholesterol 43 Result Comment: LDL is a calculated result and requires a 12-hr fast. LDL Reference Interval: Less than 100 Optimal 100-129 Near or above optimal 130-159 Borderline high risk 160-189 High risk 190 and above Very high risk Performed By: #### TSH, LIPID #### [facility] [address] [place] [id number] CBC Collected: 11/06/2017 Status: F Source: [facility] 7:56 AM [facility] REPOSITORY Order Comment: cbc clotted TYPE CODE TESTS RESULT OUT OF REFERENCE UNITS RANGE LAB WBC(LOINC) 4.50-10.80 10 3/mcL Low WBC 4.30 LAB RBCCT(LOINC 4.10-5.30 10 6/mcL ) Low RBC 2.73 LAB HGB(LOINC) 12.0-16.0 G/dL Low Hgb 9.2 LAB HCT(LOINC) 34.0-46.0 % Low Hct 27.1 LAB MCV(LOINC) 80.0-99.0 fL High MCV 99.4 LAB MCH(LOINC) 27.0-33.0 pg High MCH 33.8 LAB MCHC(LOINC) 32.0-36.0 G/dL MCHC 34.0 LAB RDW(LOINC) 11.5-15.5 % High RDW 16.6 LAB PLT(LOINC) 150-450 10 3/mcL Low Platelet 59 LAB MPV(LOINC) 6.6-10.5 fL MPV 9.5 Performed By: #### BMP, GFR, CBC, ADIFF, ANEU #### [place] [address] .AUTO DIFF Collected: 11/06/2017 Status: F Source: [facility] 7:56 AM [facility] REPOSITORY TYPE CODE TESTS RESULT OUT OF REFERENCE UNITS RANGE LAB DENICE(LOINC) 50.0-75.0 % Neutrophil % 67.0 LAB LYM(LOINC) 20.0-40.0 % Low Lymphocyte % 18.3 LAB MON(LOINC) 2.0-13.0 % Monocyte % 6.9 LAB EO(LOINC) 0.0-6.0 % High Eosinophil % 6.5 LAB BAS(LOINC) 0.0-2.5 % Basophil % 1.3 LAB ABLYM(LOIN 0.90-4.32 10 3/mcL C) Low Lymphocyte, 0.80 Absolute LAB JAMES(LOINC 0.09-1.40 10 3/mcL ) Monocyte, 0.30 Absolute LAB AEOS(LOINC 0.00-0.65 10 3/mcL ) Eosinophil, 0.30 Absolute LAB ABAS(LOINC 0.00-0.27 10 3/mcL ) Basophil, 0.10 Absolute Performed By: #### BMP, GFR, CBC, ADIFF, ANEU #### [address] [address] .NEUABS Collected: 11/06/2017 Status: F Source: [facility] 7:56 AM [facility] REPOSITORY TYPE CODE TESTS RESULT OUT OF REFERENCE UNITS RANGE LAB ANEU(LOINC) 2.25-8.10 10 3/mcL Neutrophil, 2.90 Absolute Performed By: #### BMP, GFR, CBC, ADIFF, ANEU #### [place] [address] BMP Collected: 11/06/2017 Status: F Source: [facility] 5:44 AM [facility] REPOSITORY TYPE CODE TESTS RESULT OUT OF REFERENCE UNITS RANGE LAB GLU(LOINC) 82-115 mg/dL Glucose High Level 330 LAB NA(LOINC) 136-145 mEq/L Sodium Level 140 LAB K(LOINC) 3.5-5.0 mEq/L Potassium Level 4.7 LAB CL(LOINC) 98-110 mEq/L Chloride 104 LAB CO2(LOINC) 22-32 mEq/L CO2 29 LAB EBAL(LOINC 4.0-15.0 mEq/L ) Electrolyte Balance 7.0 LAB BUN(LOINC) 8.0-22.0 mg/dL BUN High 48.0 LAB CRE(LOINC) 0.50-1.20 mg/dL Creatinine High Lvl (s) 1.91 LAB BC(LOINC) 10.0-22.0 ratio High BUN/Creatinine 25.1 Ratio LAB CA(LOINC) 8.4-10.1 mg/dL Low Calcium Lvl 8.3 Performed By: #### BMP, GFR, CBC, ADIFF, ANEU #### [address] [address] .GFR Collected: 11/06/2017 Status: F Source: [facility] 5:44 AM [facility] REPOSITORY TYPE CODE TESTS RESULT OUT OF REFERENCE UNITS RANGE LAB GFRAA(LOINC ml/min/1.73 ) sqm GFR 32 Citizen Of [place] Result Comment: GFR Population mean for , Non- Americans Ages 20-29 = 116 mL/min/1.73 sq.m. Ages 30-39 = 107 mL/min/1.73 sq.m. Ages 40-49 = 99 mL/min/1.73 sq.m. Ages 50-59 = 93 mL/min/1.73 sq.m. Ages 60-69 = 85 mL/min/1.73 sq.m. Ages 70+ = 75 mL/min/1.73 sq.m. Chronic Kidney Disease: Less than 60 mL/min/1.73 square meters End Stage Renal Disease: Less than 15 mL/min/1.73 square meters LAB GFRNO(LOINC) ml/min/1.73sqm GFR Non- 26 Result Comment: GFR Population mean for , Non- Americans Ages 20-29 = 116 mL/min/1.73 sq.m. Ages 30-39 = 107 mL/min/1.73 sq.m. Ages 40-49 = 99 mL/min/1.73 sq.m. Ages 50-59 = 93 mL/min/1.73 sq.m. Ages 60-69 = 85 mL/min/1.73 sq.m. Ages 70+ = 75 mL/min/1.73 sq.m. Chronic Kidney Disease: Less than 60 mL/min/1.73 square meters End Stage Renal Disease: Less than 15 mL/min/1.73 square meters Performed By: #### BMP, GFR, CBC, ADIFF, ANEU #### [place] [address] XR CHEST 1 VIEW Observed: 11/06/2017 Status: F Source: [facility] 4:58 AM [facility] REPOSITORY ORIGINAL XR CHEST 1 VIEW 6:10 AM CLINICAL STATEMENT: CHF exacerbation. COMPARISON: 08/01/2017 FINDINGS: The heart is mildly enlarged. There has been prior median sternotomy. Left-sided AICD is demonstrated, with 3 leads identified. There is no vascular congestion or focal infiltrate. No pleural abnormality is seen. IMPRESSION: No acute abnormality. Interpreted By: Cheyanne Brady MD Preliminary Report By: Cheyanne Brady MD Electronically Signed By: Cheyanne Brady MD Dictated Date: 11/06/2017 6:21:12 AM Prelim Date: 11/06/2017 6:21:12 AM Sign Date: 11/06/2017 6:22:17 AM CBC Collected: 11/05/2017 Status: F Source: [facility] 6:51 PM [facility] REPOSITORY Order Comment: Specimen Clotted. TYPE CODE TESTS RESULT OUT OF REFERENCE UNITS RANGE LAB WBC(LOINC) 4.50-10.80 10 3/mcL WBC 5.50 LAB RBCCT(LOINC 4.10-5.30 10 6/mcL ) Low RBC 2.84 LAB HGB(LOINC) 12.0-16.0 G/dL Low Hgb 9.5 LAB HCT(LOINC) 34.0-46.0 % Low Hct 28.6 LAB MCV(LOINC) 80.0-99.0 fL High MCV 100.8 LAB MCH(LOINC) 27.0-33.0 pg High MCH 33.6 LAB MCHC(LOINC) 32.0-36.0 G/dL MCHC 33.3 LAB RDW(LOINC) 11.5-15.5 % High RDW 16.3 LAB PLT(LOINC) 150-450 10 3/mcL Low Platelet 66 LAB MPV(LOINC) 6.6-10.5 fL MPV 9.6 Performed By: #### CAION, MG, PHOS, CMP, GFR, PBNP, CBC, ADIFF, ANEU #### [place] [address] .AUTO DIFF Collected: 11/05/2017 Status: F Source: [facility] 6:51 PM [facility] REPOSITORY TYPE CODE TESTS RESULT OUT OF REFERENCE UNITS RANGE LAB DENICE(LOINC) 50.0-75.0 % Neutrophil % 71.6 LAB LYM(LOINC) 20.0-40.0 % Low Lymphocyte % 15.6 LAB MON(LOINC) 2.0-13.0 % Monocyte % 6.1 LAB EO(LOINC) 0.0-6.0 % Eosinophil % 5.7 LAB BAS(LOINC) 0.0-2.5 % Basophil % 1.0 LAB ABLYM(LOIN 0.90-4.32 10 3/mcL C) Lymphocyte, 0.90 Absolute LAB JAMES(LOINC 0.09-1.40 10 3/mcL ) Monocyte, 0.30 Absolute LAB AEOS(LOINC 0.00-0.65 10 3/mcL ) Eosinophil, 0.30 Absolute LAB ABAS(LOINC 0.00-0.27 10 3/mcL ) Basophil, 0.10 Absolute Performed By: #### CAION, MG, PHOS, CMP, GFR, PBNP, CBC, ADIFF, ANEU #### [place] [address] .NEUABS Collected: 11/05/2017 Status: F Source: [facility] 6:51 PM [facility] REPOSITORY TYPE CODE TESTS RESULT OUT OF REFERENCE UNITS RANGE LAB ANEU(LOINC) 2.25-8.10 10 3/mcL Neutrophil, 3.90 Absolute Performed By: #### CAION, MG, PHOS, CMP, GFR, PBNP, CBC, ADIFF, ANEU #### [place] [address] TROPI Collected: 11/05/2017 Status: F Source: [facility] 6:51 [facility] REPOSITORY TYPE CODE TESTS RESULT OUT OF REFERENCE UNITS RANGE LAB TROPI(LOINC 0.000-0.040 ng/mL ) High Troponin I 0.356 Result Comment: Troponin I reference ranges (01/01/14): 0.00-0.040 ng/mL Negative and non-diagnostic. >0.040 ng/mL Consistent with cardiac damage, increased clinical risk and possibility of myocardial infarction. Serial measurements, a rise & fall in test results, clinical history, appropriate symptoms and/or ECG changes may help assess possibility of MN. *Other non-acute coronary syndrome conditions such as CHF, myocarditis, pulmonary emboli, sepsis and cardiac surgery could result in myocardial damage and increased troponin levels. Performed By: #### TROPI #### [place] [address] CAION Collected: 11/05/2017 Status: F Source: [facility] 4:11 PM [facility] REPOSITORY TYPE CODE TESTS RESULT OUT OF REFERENCE UNITS RANGE LAB CAION(LOINC 1.12-1.32 mmol/L ) Low Calcium 1.05 Ionized Performed By: #### CAION, MG, PHOS, CMP, GFR, PBNP, CBC, ADIFF, ANEU #### [place] [address] MG Collected: 11/05/2017 Status: F Source: [facility] 4:11 PM [facility] REPOSITORY TYPE CODE TESTS RESULT OUT OF REFERENCE UNITS RANGE LAB MG(LOINC) 1.6-2.4 mg/dL High Magnesium Lvl 2.5 Performed By: #### CAION, MG, PHOS, CMP, GFR, PBNP, CBC, ADIFF, ANEU #### [address] [address] PHOS Collected: 11/05/2017 Status: F Source: [facility] 4:11 PM [facility] REPOSITORY TYPE CODE TESTS RESULT OUT OF REFERENCE UNITS RANGE LAB PHOS(LOINC 2.5-4.5 mg/dL ) Phosphorus 3.3 Performed By: #### CAION, MG, PHOS, CMP, GFR, PBNP, CBC, ADIFF, ANEU #### [address] [address] CMP Collected: 11/05/2017 Status: F Source: [facility] 4:11 PM [facility] REPOSITORY TYPE CODE TESTS RESULT OUT OF REFERENCE UNITS RANGE LAB GLU(LOINC) 82-115 mg/dL Glucose High Level 128 LAB NA(LOINC) 136-145 mEq/L Sodium Level 141 LAB K(LOINC) 3.5-5.0 mEq/L Potassium Level 4.5 LAB CL(LOINC) 98-110 mEq/L Chloride 107 LAB CO2(LOINC) 22-32 mEq/L CO2 25 LAB EBAL(LOINC 4.0-15.0 mEq/L ) Electrolyte Balance 9.0 LAB BUN(LOINC) 8.0-22.0 mg/dL BUN High 44.0 LAB CRE(LOINC) 0.50-1.20 mg/dL Creatinine High Lvl (s) 1.70 LAB BC(LOINC) 10.0-22.0 ratio High BUN/Creatinine 25.9 Ratio LAB CA(LOINC) 8.4-10.1 mg/dL Low Calcium Lvl 8.3 LAB PROT(LOINC 6.0-8.5 G/dL ) Total Protein 7.4 LAB ALB(LOINC) 3.2-4.8 G/dL Low Albumin Level 3.1 LAB GLB(LOINC) 1.5-3.8 G/dL Globulin High 4.3 LAB AG(LOINC) 0.9-1.6 ratio Low A/G Ratio 0.7 LAB BILT(LOINC 0.2-1.2 mg/dL ) Bili Total 0.6 LAB AP(LOINC) 38-126 U/L Alk Phos High 158 LAB AST(LOINC) 8-34 U/L AST/SGOT High 124 LAB ALT(LOINC) 10-49 U/L ALT/SGPT High 356 Performed By: #### MERCY, MG, PHOS, CMP, GFR, PBNP, CBC, ADIFF, ANEU #### [address] [address] .GFR Collected: 11/05/2017 Status: F Source: [facility] 4:11 PM [facility]ATION REPOSITORY TYPE CODE TESTS RESULT OUT OF REFERENCE UNITS RANGE LAB GFRAA(LOINC ml/min/1.73 ) sqm GFR 36 [place] Result Comment: GFR Population mean for , Non- Americans Ages 20-29 = 116 mL/min/1.73 sq.m. Ages 30-39 = 107 mL/min/1.73 sq.m. Ages 40-49 = 99 mL/min/1.73 sq.m. Ages 50-59 = 93 mL/min/1.73 sq.m. Ages 60-69 = 85 mL/min/1.73 sq.m. Ages 70+ = 75 mL/min/1.73 sq.m. Chronic Kidney Disease: Less than 60 mL/min/1.73 square meters End Stage Renal Disease: Less than 15 mL/min/1.73 square meters LAB GFRNO(LOINC) ml/min/1.73sqm GFR Non- 30 Result Comment: GFR Population mean for , Non- Americans Ages 20-29 = 116 mL/min/1.73 sq.m. Ages 30-39 = 107 mL/min/1.73 sq.m. Ages 40-49 = 99 mL/min/1.73 sq.m. Ages 50-59 = 93 mL/min/1.73 sq.m. Ages 60-69 = 85 mL/min/1.73 sq.m. Ages 70+ = 75 mL/min/1.73 sq.m. Chronic Kidney Disease: Less than 60 mL/min/1.73 square meters End Stage Renal Disease: Less than 15 mL/min/1.73 square meters Performed By: #### CAION, MG, PHOS, CMP, GFR, PBNP, CBC, ADIFF, ANEU #### [address] [address] PBNP Collected: 11/05/2017 Status: F Source: [facility] 4:11 PM [facility] REPOSITORY TYPE CODE TESTS RESULT OUT OF REFERENCE UNITS RANGE LAB PBNP(LOINC) 0-900 pg/mL High N-Terminal 4766 proBNP Result Comment: NT-proBNP results of less than 300 pg/mL effectively rules out acute congestive heart failure with 99% negative predictive value. Performed By: #### CAION, MG, PHOS, CMP, GFR, PBNP, CBC, ADIFF, ANEU #### [address] [address] TROPI Collected: 11/05/2017 Status: F Source: [facility] 4:11 PM [facility] REPOSITORY TYPE CODE TESTS RESULT OUT OF REFERENCE UNITS RANGE LAB TROPI(LOINC 0.000-0.040 ng/mL ) High Troponin I 0.386 Result Comment: Troponin I reference ranges (01/01/14): 0.00-0.040 ng/mL Negative and non-diagnostic. >0.040 ng/mL Consistent with cardiac damage, increased clinical risk and possibility of myocardial infarction. Serial measurements, a rise & fall in test results, clinical history, appropriate symptoms and/or ECG changes may help assess possibility of MN. *Other non-acute coronary syndrome conditions such as CHF, myocarditis, pulmonary emboli, sepsis and cardiac surgery could result in myocardial damage and increased troponin levels. Performed By: #### TROPI #### [address] [address] BMP Collected: 11/04/2017 Status: F Source: [facility] 10:38 AM [facility] REPOSITORY TYPE CODE TESTS RESULT OUT OF REFERENCE UNITS RANGE LAB GLU(LOINC) 80-115 mg/dL Glucose High Level 279 LAB NA(LOINC) 136-146 mEq/L Sodium Level 139 LAB K(LOINC) 3.5-5.1 mEq/L Potassium Level 4.6 LAB CL(LOINC) 98-107 mEq/L Chloride 102 LAB CO2(LOINC) 23-31 mEq/L CO2 28 LAB EBAL(LOINC mEq/L ) Electrolyte Balance 9.0 LAB BUN(LOINC) 7.0-18.0 mg/dL BUN High 45.8 LAB CRE(LOINC) 0.6-1.2 mg/dL Creatinine High Lvl (s) 1.8 LAB BC(LOINC) 7-27 ratio BUN/Creatinine 25 Ratio LAB CA(LOINC) 8.4-10.2 mg/dL Calcium Lvl 9.4 Performed By: #### BMP, GFR #### [address] [place], [place] [address] .GFR Collected: 11/04/2017 Status: F Source: [facility] 10:38 AM [facility] REPOSITORY TYPE CODE TESTS RESULT OUT OF REFERENCE UNITS RANGE LAB GFRAA(LOINC ml/min/1.73 ) sqm GFR 35 [place] Result Comment: GFR Population mean for , Non- Americans Ages 20-29 = 116 mL/min/1.73 sq.m. Ages 30-39 = 107 mL/min/1.73 sq.m. Ages 40-49 = 99 mL/min/1.73 sq.m. Ages 50-59 = 93 mL/min/1.73 sq.m. Ages 60-69 = 85 mL/min/1.73 sq.m. Ages 70+ = 75 mL/min/1.73 sq.m. Chronic Kidney Disease: Less than 60 mL/min/1.73 square meters End Stage Renal Disease: Less than 15 mL/min/1.73 square meters LAB GFRNO(LOINC) ml/min/1.73sqm GFR Non- 29 Result Comment: GFR Population mean for , Non- Americans Ages 20-29 = 116 mL/min/1.73 sq.m. Ages 30-39 = 107 mL/min/1.73 sq.m. Ages 40-49 = 99 mL/min/1.73 sq.m. Ages 50-59 = 93 mL/min/1.73 sq.m. Ages 60-69 = 85 mL/min/1.73 sq.m. Ages 70+ = 75 mL/min/1.73 sq.m. Chronic Kidney Disease: Less than 60 mL/min/1.73 square meters End Stage Renal Disease: Less than 15 mL/min/1.73 square meters Performed By: #### BMP, GFR #### [address] [place], [place] [address] BMP Collected: 10/14/2017 Status: F Source: [facility] 12:39 PM [facility] REPOSITORY TYPE CODE TESTS RESULT OUT OF REFERENCE UNITS RANGE LAB GLU(LOINC) 80-115 mg/dL Glucose High Level 217 LAB NA(LOINC) 136-146 mEq/L Sodium Level 140 LAB K(LOINC) 3.5-5.1 mEq/L Potassium High Level 5.4 LAB CL(LOINC) 98-107 mEq/L Chloride 103 LAB CO2(LOINC) 23-31 mEq/L CO2 26 LAB EBAL(LOINC mEq/L ) Electrolyte Balance 11.0 LAB BUN(LOINC) 7.0-18.0 mg/dL BUN High 65.9 LAB CRE(LOINC) 0.6-1.2 mg/dL Creatinine High Lvl (s) 2.2 LAB BC(LOINC) 7-27 ratio High BUN/Creatinine 30 Ratio LAB CA(LOINC) 8.4-10.2 mg/dL Calcium Lvl 9.9 Performed By: #### BMP, GFR #### [address] [address] .GFR Collected: 10/14/2017 Status: F Source: [facility] 12:39 PM [facility] REPOSITORY TYPE CODE TESTS RESULT OUT OF REFERENCE UNITS RANGE LAB GFRAA(LOINC ml/min/1.73 ) sqm GFR 27 [place] Result Comment: GFR Population mean for , Non- Americans Ages 20-29 = 116 mL/min/1.73 sq.m. Ages 30-39 = 107 mL/min/1.73 sq.m. Ages 40-49 = 99 mL/min/1.73 sq.m. Ages 50-59 = 93 mL/min/1.73 sq.m. Ages 60-69 = 85 mL/min/1.73 sq.m. Ages 70+ = 75 mL/min/1.73 sq.m. Chronic Kidney Disease: Less than 60 mL/min/1.73 square meters End Stage Renal Disease: Less than 15 mL/min/1.73 square meters LAB GFRNO(LOINC) ml/min/1.73sqm GFR Non- 22 Result Comment: GFR Population mean for , Non- Americans Ages 20-29 = 116 mL/min/1.73 sq.m. Ages 30-39 = 107 mL/min/1.73 sq.m. Ages 40-49 = 99 mL/min/1.73 sq.m. Ages 50-59 = 93 mL/min/1.73 sq.m. Ages 60-69 = 85 mL/min/1.73 sq.m. Ages 70+ = 75 mL/min/1.73 sq.m. Chronic Kidney Disease: Less than 60 mL/min/1.73 square meters End Stage Renal Disease: Less than 15 mL/min/1.73 square meters Performed By: #### BMP, GFR #### [address] [address] RFP Collected: 09/17/2017 Status: F Source: [facility] 10:19 AM [facility] REPOSITORY TYPE CODE TESTS RESULT OUT OF REFERENCE UNITS RANGE LAB GLU(LOINC) 80-115 mg/dL Glucose High Level 198 LAB NA(LOINC) 136-146 mEq/L Sodium Level 141 LAB K(LOINC) 3.5-5.1 mEq/L Potassium Level 5.0 LAB CL(LOINC) 98-107 mEq/L Chloride 103 LAB CO2(LOINC) 23-31 mEq/L CO2 28 LAB EBAL(LOINC mEq/L ) Electrolyte Balance 10.0 LAB BUN(LOINC) 7.0-18.0 mg/dL BUN High 36.3 LAB CRE(LOINC) 0.6-1.2 mg/dL Creatinine High Lvl (s) 1.9 LAB BC(LOINC) 7-27 ratio BUN/Creatinine 19 Ratio LAB CA(LOINC) 8.4-10.2 mg/dL Calcium Lvl 8.8 LAB PHOS(LOINC 2.3-4.1 mg/dL ) Phosphorus High 4.6 LAB ALB(LOINC) 3.4-4.8 G/dL Albumin Level 3.7 Performed By: #### RFP, GFR, CBC, ADIFF, MORPH, ANEU #### [address] [address] #### PTH, VIDH #### [address] [address] .GFR Collected: 09/17/2017 Status: F Source: [facility] 10:19 AM [facility] REPOSITORY TYPE CODE TESTS RESULT OUT OF REFERENCE UNITS RANGE LAB GFRAA(LOINC ml/min/1.73 ) sqm GFR 33 Citizen [place] Result Comment: GFR Population mean for , Non- Americans Ages 20-29 = 116 mL/min/1.73 sq.m. Ages 30-39 = 107 mL/min/1.73 sq.m. Ages 40-49 = 99 mL/min/1.73 sq.m. Ages 50-59 = 93 mL/min/1.73 sq.m. Ages 60-69 = 85 mL/min/1.73 sq.m. Ages 70+ = 75 mL/min/1.73 sq.m. Chronic Kidney Disease: Less than 60 mL/min/1.73 square meters End Stage Renal Disease: Less than 15 mL/min/1.73 square meters LAB GFRNO(LOINC) ml/min/1.73sqm GFR Non- 27 Result Comment: GFR Population mean for , Non- Americans Ages 20-29 = 116 mL/min/1.73 sq.m. Ages 30-39 = 107 mL/min/1.73 sq.m. Ages 40-49 = 99 mL/min/1.73 sq.m. Ages 50-59 = 93 mL/min/1.73 sq.m. Ages 60-69 = 85 mL/min/1.73 sq.m. Ages 70+ = 75 mL/min/1.73 sq.m. Chronic Kidney Disease: Less than 60 mL/min/1.73 square meters End Stage Renal Disease: Less than 15 mL/min/1.73 square meters Performed By: #### RFP, GFR, CBC, ADIFF, MORPH, ANEU #### [address] [address] #### PTH, VIDH #### [address] [address] CBC Collected: 09/17/2017 Status: F Source: [facility] 10:19 AM [facility] REPOSITORY TYPE CODE TESTS RESULT OUT OF REFERENCE UNITS RANGE LAB WBC(LOINC) 4.60-10.80 10 3/mcL WBC 4.90 LAB RBCCT(LOINC 4.20-5.40 10 6/mcL ) Low RBC 2.90 LAB HGB(LOINC) 12.0-16.0 G/dL Low Hgb 9.6 LAB HCT(LOINC) 37.0-47.0 % Low Hct 28.5 LAB MCV(LOINC) 80.0-94.0 fL High MCV 98.2 LAB MCH(LOINC) 27.0-31.2 pg High MCH 33.2 LAB MCHC(LOINC) 33.0-37.0 G/dL MCHC 33.8 LAB RDW(LOINC) 11.5-14.5 % High RDW 16.0 LAB PLT(LOINC) 130-400 10 3/mcL Low Platelet 70 LAB MPV(LOINC) 7.4-10.4 fL MPV 9.4 Performed By: #### RFP, GFR, CBC, ADIFF, MORPH, ANEU #### [address] [address] #### PTH, VIDH #### [address] [address] .AUTO DIFF Collected: 09/17/2017 Status: F Source: [facility] 10:19 AM [facility] REPOSITORY TYPE CODE TESTS RESULT OUT OF REFERENCE UNITS RANGE LAB DENICE(LOINC) 37.0-80.0 % Neutrophil % 71.3 LAB LYM(LOINC) 10.0-50.0 % Lymphocyte % 14.8 LAB MON(LOINC) 1.7-13.0 % Monocyte % 5.9 LAB EO(LOINC) 0.0-7.0 % Eosinophil % 6.8 LAB BAS(LOINC) 0.0-2.5 % Basophil % 1.2 LAB ABLYM(LOIN 0.77-3.85 10 3/mcL C) Low Lymphocyte, 0.70 Absolute LAB JAMES(LOINC 0.15-1.00 10 3/mcL ) Monocyte, 0.30 Absolute LAB AEOS(LOINC 0.00-0.40 10 3/mcL ) Eosinophil, 0.30 Absolute LAB ABAS(LOINC 0.00-0.19 10 3/mcL ) Basophil, 0.10 Absolute Performed By: #### RFP, GFR, CBC, ADIFF, MORPH, ANEU #### [address] [address] #### PTH, VIDH #### [address] [address] .MORPH Collected: 09/17/2017 Status: F Source: [facility] 10:19 AM [facility] REPOSITORY TYPE CODE TESTS RESULT OUT OF REFERENCE UNITS RANGE LAB PLTE(LOINC ) Platelet Estimate Grt Decreased LAB ANIS(LOINC ) Anisocytosis Slight LAB POIK(LOINC ) Poik Slight LAB OVAL(LOINC ) Ovalocytes Few Performed By: #### RFP, GFR, CBC, ADIFF, MORPH, ANEU #### [address] [address] #### PTH, VIDH #### [address] [address] .NEUABS Collected: 09/17/2017 Status: F Source: [facility] 10:19 AM [facility] REPOSITORY TYPE CODE TESTS RESULT OUT OF REFERENCE UNITS RANGE LAB ANEU(LOINC) 2.85-6.16 10 3/mcL Neutrophil, 3.50 Absolute Performed By: #### RFP, GFR, CBC, ADIFF, MORPH, ANEU #### [address] [address] #### PTH, VIDH #### [place] [address] PTH Collected: 09/17/2017 Status: F Source: [facility] 10:19 AM [facility] REPOSITORY TYPE CODE TESTS RESULT OUT OF REFERENCE UNITS RANGE LAB PTH(LOINC) 18.5-88.0 pg/mL High PTH, Intact 179.9 Performed By: #### RFP, GFR, CBC, ADIFF, MORPH, ANEU #### [address] [address] #### PTH, VIDH #### [place] [address] VIDH Collected: 09/17/2017 Status: F Source: [facility] 10:19 [facility] REPOSITORY TYPE CODE TESTS RESULT OUT OF RANGE REFERENCE UNITS LAB VIDH(LOINC) ng/mL Vit. D 34 25-Hydroxy Result Comment: Interpretive Values Based on Total 25(OH)D: Severe Deficiency <20 ng/mL Mild to Moderate Deficiency 20-30 ng/mL Optimum Levels 30-100 ng/mL Toxicity Possible >100 ng/mL Performed By: #### RFP, GFR, CBC, ADIFF, MORPH, ANEU #### [address] [address] #### PTH, VIDH #### [place] [address] CRUR Collected: 09/17/2017 Status: F Source: [facility] 10:19 AM [facility] REPOSITORY TYPE CODE TESTS RESULT OUT OF REFERENCE UNITS RANGE LAB CRU(LOINC) 28.0-217.0 mg/dL U Creatinine 45.7 Performed By: #### CRUR, PRUR #### [address] [place], [place] [address] PRUR Collected: 09/17/2017 Status: F Source: [facility] 10:19 AM [facility] REPOSITORY TYPE CODE TESTS RESULT OUT OF REFERENCE UNITS RANGE LAB PRU(LOINC) 0-14 mg/dL U Protein 11 Performed By: #### CRUR, PRUR #### [address] [place], [place] [address] BASIC METABOLIC PANL Collected: 09/06/2017 Status: F Source: [facility] 7:35 AM [facility] REPOSITORY TYPE CODE TESTS RESULT OUT OF REFERENCE UNITS RANGE LAB GLU 74-99 mg/dL High Glucose 338 Result Comment: The [place] Diabetes Association (ADA) provides guidance for cutoff values for fasting glucose and random glucose. The ADA defines fasting as no caloric intake for at least 8 hours. Fas ting plasma glucose results between 100 to 125 mg/dL indicate increased risk for diabetes (prediabetes). Fasting plasma glucose results greater than or equal to 126 mg/dL meet the criteria for diagnosis of diabetes. In the absence of unequivocal hyperglycemia, results should be confirmed by repeat testing. In a patient with classic symptoms of hyperglycemia or hyperglycemic crisis, random plasma glucose results greater than or equal to 200 mg/dL meet the criteria for diagnosis of diabetes. Reference: Standards of Medical Care in Diabetes 2016, [place] Diabetes Association. Diabetes Care. 2016.39(Suppl 1). LAB BUN 7-21 mg/dL BUN High 47 LAB CRET 0.58-0.96 mg/dL Creatinine High 2.06 LAB NA 136-144 mmol/L Sodium 139 LAB K 3.7-5.1 mmol/L Potassium 4.6 LAB CL 97-105 mmol/L Chloride 101 LAB CO2 22-30 mmol/L CO2 26 LAB AGAP 9-18 mmol/L Anion Gap 12 LAB CA 8.5-10.2 mg/dL Calcium, Total 8.8 LAB GFRAA eGFR- Amer. 29 LAB GFRNAA . eGFR-All Other Races 24 Result Comment: eGFR (Estimated GFR) Units of measure: mL/min/1.73 meters squared eGFR is derived from the reexpressed MDRD Study equation using the following parameters: serum creatinine, age, gender and race. The creatinine assay has been calibrated to be traceable to IDNV. An eGFR <60 mL/min/1.73m2 for >3 months is consistent with chronic kidney disease. Refer to KDOQI guidelines for clinical interpretation. In patients with unstable renal function, e.g. those with acute kidney injury, the eGFR may not accurately reflect actual GFR. Performed By: #### BMP, MG1 #### [facility] [employer] [address] [place], [place] [address] MAGNESIUM Collected: 09/06/2017 Status: F Source: [place] 7:35 AM [facility] REPOSITORY TYPE CODE TESTS RESULT OUT OF REFERENCE UNITS RANGE LAB MG 1.7-2.3 mg/dL Magnesium 2.2 Performed By: #### BMP, MG1 #### [facility] [employer] [address] [place] [address] CNDS Observed: 09/01/2017 Status: COMPLETED Source: [place] 2:30 PM [facility] REPOSITORY HNO ID: [id number] Author: Renay Dockery ([facility]) Service: Cardiovascular Medicine Author Type: Nurse Practitioner Type: Discharge Summaries Filed: 09/01/2017 2:34 PM Note Text: Department of Cardiovascular Medicine Discharge Summary (Template ID [id number]) Patient Name: Kalyn Cain Patient Admission Date: 08/19/2017 Discharge Date: September 01, 2017 Attending Physician: Chetna Alfredo Primary Service: Supervisor Pipeline/Pa, Hvi Clinical Admission Diagnosis: Hypervolemia, unspecified hypervolemia type [E87.70] Discharge Diagnosis: Hypervolemia, unspecified hypervolemia type [E87.70] Secondary Diagnoses: Patient Active Hospital Problem List: Acute on chronic combined systolic and diastolic CHF (congestive heart failure) ([facility]) (08/24/2017) CKD (chronic kidney disease) stage 4, GFR 15-29 ml/min ([facility]) (09/01/2016) Coronary artery disease involving [place] coronary artery of [place] heart without angina pectoris (08/24/2017) Cardiac resynchronization therapy defibrillator (SPINN[employer] WINDING SUPERVISOR-D) in place (08/24/2017) PAD (peripheral artery disease) ([facility]) (08/24/2017) HTN (hypertension), benign (08/24/2017) Hyperlipidemia LDL goal <70 (08/24/2017) Diabetes mellitus type 2 with peripheral artery disease (HCC) (08/24/2017) Acquired hypothyroidism (08/24/2017) Portal hypertension with esophageal varices ([facility]) (08/31/2016) Obesity, Class III, BMI >= 40 E66.01 (08/20/2017) Reason for Hospitalization: Mrs. Kalyn Cain was admitted through the Emergency Department on 08/19/17 with symptoms of shortness of breath, orthopnea, and lower extremity swelling over previous 2-3 weeks. Hospital Course: * How was the Chief Complaint addressed; specific medication changes; pertinent issues; reasons for extended stay: A recent CT scan done locally showed swelling around liver AND spleen along with a concurrent history of HCV Cirrhosis, she was admitted to hepatology service. She was diuresed with IV lasix, however, underwent an echocardiogram which showed an ejection fraction of 40%, grade III diastolic dysfunction, low normal RV systolic function. Therefore, her fluid overload was felt to be related to heart dysfunction and she was transferred to cardiology service for further care. She was diuresed with IV lasix and then transitioned to torsemide 40mg twice daily. It was felt that the demadex should be decreased to 20mg bid at discharge. Her Altace was decreased to 2.5mg. Her aldactone was resumed at 25mg daily. She was followed by Endocrinology for her uncontrolled blood sugars. Her home regimen was altered slightly. she will need to follow with her local reading recovery teacher. Consults: Endocrinology Major Procedure or Operation: None Other Procedures, Testing AND Radiology: Echocardiogram US ascites study CT abd/pelvis w/o IV contrast Chest xray Patient Condition at Discharge: Improved Disposition: Home Information Provided to the Patient: Patient given copy of After Visit Summary which included activity instructions, diet instructions, wound care instructions, medication instructions and follow up appointment Discharge Medications: Current Discharge Medication List START taking these medications torsemide (DEMADEX) 20 mg Take 20 mg by mouth twice daily. Qty: 60 tablet Refills: 3 senna (SENOKOT) 8.6 mg Take 8.6 mg by mouth twice daily. CONTINUE these medications which have CHANGED carvedilol (COREG) 6.25 mg Take 6.25 mg by mouth twice daily with meals. Qty: 60 tablet Refills: 3 ramipril (ALTACE) 2.5 mg Take 2.5 mg by mouth once daily. Qty: 30 capsule Refills: 3 spironolactone (ALDACTONE) 12.5 mg Take 12.5 mg by mouth once daily. Qty: 15 tablet Refills: 3 insulin aspart (NOVOLOG) 100 units/ml Inject 12 units with meals insulin degludec (TRESIBA FLEXTOUCH U-100) 100 unit/mL (3 mL) injection Inject 36 units in am CONTINUE these medications which have NOT CHANGED CALCIUM CARBONATE/VITAMIN D3 (VITAMIN D-3 ORAL) Take by mouth. GLUCAGON EMERGENCY KIT, HUMAN, 1 mg injection ACCU-CHEK DISHA PLUS TEST STRP test strip USE 4 TIMES DAILY Refills: 2 NOVOLOG FLEXPEN U-100 INSULIN 100 unit/mL inpn USE DIRECTED NEEDED SLIDING SCALE Refills: 3 elbasvir-grazoprevir (ZEPATIER) 50-100 mg tab Take 1 tablet by mouth once daily Qty: 28 tablet Refills: 2 Associated Diagnoses:Hepatic cirrhosis due to chronic hepatitis C infection (HCC); CKD (chronic kidney disease) stage 4, GFR 15-29 ml/min (HCC) promethazine (PHENERGAN) 25 mg Take 25 mg by mouth every 6 hours as needed. HYDROcodone-acetaminophen (NORCO) 1 tablet Take 1 tablet by mouth every 6 hours as needed. levothyroxine (SYNTHROID) 137 mcg Take 137 mcg by mouth daily before breakfast. clopidogrel (PLAVIX) 75 mg Take 75 mg by mouth once daily. atorvastatin (LIPITOR) 40 mg Take 40 mg by mouth once daily. aspirin, enteric coated (ASPIRIN, ENTERIC COATED) 81 mg Take 81 mg by mouth once daily. ferrous sulfate 325 mg Take 325 mg by mouth daily with breakfast. gabapentin (NEURONTIN) 300 mg Take 300 mg by mouth twice daily. pantoprazole DR (PROTONIX) 20 mg Take 20 mg by mouth once daily. STOP taking these medications TRESIBA FLEXTOUCH U-200 200 unit/mL (3 mL) injection Comments: Reason for Stopping: furosemide (LASIX) 40 mg Comments: Reason for Stopping: Outpatient Management: * Are there important medication changes and/or outstanding issues that need to be addressed: CV - F/U for heart failure and Endo f/u for DM * What is the plan for follow up: As below Future Appointments Date Time Provider Department Center 12/28/2017 8:30 AM [id number] [facility] 2 [facility] REPLACED BY [facility] 12/31/2017 3:10 PM [id number], SAUL GASTA[address] 12/31/2017 3:10 PM [id number], ZAC GASTA5 [address] An appointment has been made with Dr. Gracia on September 07, 2017 at [address] [place] [address] [id number] Please call [phone] if you need to reschedule Electronically SIGNED by Licensed Independent Practitioner: Renay Dockery, RN MSN ENGINEERING PROGRAM ANALYST.[employer] Observed: 09/01/2017 Status: COMPLETED Source: [place] 1:04 PM [facility] REPOSITORY [facility] ID: [id number] Author: Renay Dockery (Management Retail Intern) Service: Cardiovascular Medicine Author Type: Nurse Practitioner Type: Progress Notes Filed: 09/01/2017 1:05 PM Note Text: [facility]ARDI[facility]ULAR [facility]IC[facility] PROGRESS NOTE Kalyn Cain [id number] PRIMARY SERVICE: Supervisor Pipeline/Pa, i Clinical HOSPITAL DAY: # 13 INTERVAL HISTORY Feels well Ready to go home Rhythm: SR Intake/Output Summary (Last 24 hours) at 09/01/17 1304 Last data filed at 09/01/17 1100 Gross per 24 hour Intake 935 ml Output 4735 ml Net -3800 ml EKG: Most recent reviewed TELE: most recent recordings reviewed CXR: most recent image reviewed, most recent report reviewed Echocardiogram: most recent report reviewed PHYSICAL EXAM: BP 129/60 Pulse 70 Temp 36.9 ?C (98.4 ?F) (Oral) Resp 18 Ht 162.6 cm (5' 4) Wt 104 kg (229 lb 4.8 oz) SpO2 99% BMI 39.36 kg/m? Neuro: AANDO x 3 moves all extremities with no apparent weakness CV: no jugular venous distention RRR without murmur, gallop, or rubs. No ectopy. Resp: Clear but diminished Abd: +BS x4 Skin: skin color, texture, turgor normal, no rashes or lesions Ext: Trace edema MEDICATIONS Current hospital medications: ramipril 2.5 mg cap(s) (ALTACE) 2.5 mg ORAL DAILY spironolactone 12.5 mg tab(s) (ALDACTONE) 12.5 mg ORAL DAILY torsemide 20 mg tab(s) (DEMADEX) 20 mg ORAL BID 9A/1P insulin glargine 40 Units pen (long acting) (LANTUS SOLOSTAR, BASAGLAR) 40 Units SUBCUTANEOUS DAILY (9 AM) insulin lispro 12 Units injection (rapid acting) (HumaLOG) 12 Units SUBCUTANEOUS DAILY wLUNCH insulin lispro 12 Units injection (rapid acting) (HumaLOG) 12 Units SUBCUTANEOUS DAILY wDINNER senna 8.6 mg tab(s) (SENOKOT) 8.6 mg ORAL BID insulin lispro injection (rapid acting) (HumaLOG) SUBCUTANEOUS w MEALS AND HS insulin lispro injection (rapid acting) (HumaLOG) SUBCUTANEOUS Daily (3 AM) insulin lispro 12 Units injection (rapid acting) (HumaLOG) 12 Units SUBCUTANEOUS DAILY WITH BREAKFAST carvedilol 6.25 mg tab(s) (COREG) 6.25 mg ORAL BID w MEALS traMADol 50 mg tab(s) (ULTRAM) 50 mg ORAL q 6 H PRN 0.9% NaCl 3-5 mL 3-5 mL INTRAVENOUS q 12 H heparin 5,000 Units injection 5,000 Units SUBCUTANEOUS q 12 H gabapentin 300 mg cap(s) (NEURONTIN) 300 mg ORAL BID atorvastatin 40 mg tab(s) (LIPITOR) 40 mg ORAL DAILY aspirin, enteric coated 81 mg tab(s) (ASPIRIN, ENTERIC COATED) 81 mg ORAL DAILY AT 9 PM clopidogrel 75 mg tab(s) (PLAVIX) 75 mg ORAL DAILY pantoprazole DR 20 mg tab(s) (PROTONIX) 20 mg ORAL DAILY levothyroxine (SYNTHROID) tab(s) 137 mcg 137 mcg ORAL BEFORE BREAKFAST DAILY dextrose 40 % 15 g 15 g ORAL PRN glucagon 1 mg injection (GLUCAGEN) 1 mg INTRAMUSCULAR PRN dextrose 50% in water 25 mL syringe 12.5 g INTRAVENOUS PRN DATA Recent Labs 09/01/17 0528 08/31/17 0528 08/30/17 0524 WBC 4.86 4.78 4.38 HB 8.6* 8.7* 8.7* HCT 25.9* 27.3* 26.7* PLT 70* 70* 72* Recent Labs 09/01/17 0528 08/31/17 0528 08/30/17 0524 NA 140 137 137 K 4.1 4.1 4.0 CO2 30 27 29 BUN 59* 56* 55* CREAT 2.10* 2.15* 2.11* GLUC 194* 151* 153* ASSESSMENT AND PLAN Presentation/Indication for admission/procedure: Hypervolemia, unspecified hypervolemia type [E87.70] LVEF: 37 RVEF: low normal Cards: [facility] Cath: LM 100% ostial, LCx/RCA 100% ostial. 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 Pearson note) c/b portal HTN, EV (EGD 05/12 very small EV, on Coreg), [place] 2003 s/p CABGx3 (03/2004 SVG to Lcx, SVG to RCA and MCCONNELL graft to the LAD), ICM s/p CRTD placement (12/2010) (On ASA and Plavix), PAD s/p left lower extremity stenting (on ASA and Plavix) HFrEF (EF=40%), DMT2 (on insulin) and CKD stage 4 Procedure/OR performed (including complications): Echocardiogram Brief Hospital Course/Narrative: Mrs. Kalyn Cain was admitted through the Emergency Department on 08/19/17 with symptoms of shortness of breath, orthopnea, and lower extremity swelling over previous 2-[address] scan done locally showed swelling around liver AND spleen along with a concurrent history of HCV Cirrhosis, she was admitted to hepatology service. She was diuresed with IV lasix, however, underwent an echocardiogram which showed an ejection fraction of 40%, grade III diastolic dysfunction, low normal RV systolic function. Therefore, her fluid overload was felt to be related to heart dysfunction and she was transferred to cardiology service for further care. She was diuresed with IV lasix and then transitioned to torsemide 40mg twice daily. Her Altace was decreased to 2.5mg. Her aldactone was resumed at 25mg daily. Issues to communicate: D/c 09/01- follow up appointment with local proposition player made, in d/c instructions resume low dose BONITA-I Resume aldactone at 12.5 Will need labs by 09/06 Problem Acute On Chronic Combined Systolic and Diastolic Chf (Congestive Heart Failure) ([facility]) History: Acute decompensated systolic HF Assessment: Moderate volume overload. Dry weight 230lb. Plan: torsemide, coreg. altace, aldactone Coronary Artery Disease Involving [place] Coronary Artery of [place] Heart Without Angina Pectoris History: [place] 2003 s/p CABG x3 Assessment: Last cath 2016: LM 100% ostial, LCx/RCA 100% ostial. Patent MCCONNELL-LAD, SVG-RPDA, SVG-OM1 Plan: ASA, coreg, lipitor Cardiac Resynchronization Therapy Defibrillator (Pharmacist-D) in Place History: BSX N119 COGNIS 100-D 01/05/11 Assessment: BiV pacing 100% Plan: F/U with Dr Loya Pad (Peripheral Artery Disease) ([facility]) History: Hx claudication Assessment: s/p remote LE stenting Plan: ASA, plavix Ckd (Chronic Kidney Disease) Stage 4, Gfr 15-29 Ml/Min ([facility]) History: Baseline creat 2-2.2 Assessment: CKD stage 4, GFR 23 Plan: Stable. F/U labs as OP Htn (Hypertension), Benign History: On coreg 12.5 bid, lasix 40 at home Assessment: Currently well controlled Plan: Continue current medications Hyperlipidemia Ldl Goal <70 History: On lipitor 40 at home Assessment: LDL 44 Plan: Continue lipitor 40mg Diabetes Mellitus Type 2 With Peripheral Artery Disease (Hcc) History: On Insulin Assessment: A1c 5.8. BG uncontrolled here Plan: Follow Endo recs at [facility] Acquired Hypothyroidism History: On synthroid 137mcg Assessment: TSH 1.990 Plan: Continue synthroid Portal Hypertension With Esophageal Varices (Hcc) History: Cirrhosis from chronic hep C (resolved) Assessment: On aldactone EXTRAS CASTING DIRECTOR Plan: resume aldactone at 12.5mg daily Obesity, Class III, BMI >= 40 E66.01 History: BMI 40.04 Assessment: Morbid obesity Plan: HH/carb controlled diet Case discussed with Chetna Alfredo M.D. Renay Valentine [facility] Nurse Practitioner Pager [phone] (please see below for after hours communication) 09/01/2017 1:04 PM For communication after 5 pm on weekdays and after 12 pm on weekends, please page the following: - Clinical Cardiology patients on all floors: page [phone] - Other Cardiology patients on J5 and J6: page [phone] - Other Cardiology patients on J7 and J8: page [phone] Greater than 30 minutes was spent educating patient and family on diagnosis, discharge needs, and follow up. CONSULT PROG Observed: 09/01/2017 Status: COMPLETED Source: [place] 11:46 AM [facility] REPOSITORY O ID: [id number] Author: Monica France ([facility]) Service: Endocrinology Author Type: Nurse Practitioner Type: Consult Progress Note Filed: 09/01/2017 3:02 PM Note Text: DIABETES CARE TEAM NOTE SERVICE DATE: 09/01/2017 SERVICE TIME: 11:46 AM Summary of History from Prior Record: Consult Date: 08/24/2017 ? HPI: Ms. Kalyn Cain is a 67 year old female with a >30?year history of Diabetes Mellitus Type 2 hyperglycemia?who was admitted on 08/19/2017 for evaluation of SOB + orthopnea. Past medical history significant for CAD s/p CABG x 4 03/2004 cirrhosis d/t chronic hepatitis C, portal HTN, ? HF CKD stage 3. Patient ?does ?exercise. Last HbA1c was 5.8% on 08/23/2017 ( not accurate as patient have chronic macrocytic anemia). ?She has no?family history of diabetes. She is followed by Dr. Ana Gutierrez ( [employer] reading recovery teacher) at [facility]?for her diabetes. ? ? DIABETIC COMPLICATIONS: Nephropathy: CKD stage 3 Neuropathy: Polyneuropathy CAD ? Pre-Admission DM Regimen: Preadmission insulin regimen: Tresiba 60units ?Q am Novolog Sliding scale ?With meals starts with 10 units when BG before po intake is 150 mg/dL ? ? Self Monitoring Blood Glucose: Type of Monitor: Accucheck ? Frequency of Monitorin?times a day and PRN BG Values: 100-200 Hypoglycemia: Yes, Frequency: none for ?A year but had BG in 11 and in 1500 and has been hospitalized for lows in past x3 and once for high 1500 which related that to one of meds that she was on Symptoms: Shakiness and Sweating Feel symptoms when BS is 100?mg/dL 09/01/2017 11:47 AM Interval HPI: No acute events overnight. Ready to go home. PERTINENT ROS: Constitutional: Feels well, no complaints Appetite:Intact GI:No nausea, no vomitting, no diarrhea, no constipation PHYSICAL EXAM: VS: Blood pressure 129/60, pulse 70, temperature 36.9 ?C (98.4 ?F), temperature source Oral, resp. rate 18, height 162.6 cm (5' 4), weight 104 kg (229 lb 4.8 oz), SpO2 99 %. General Appearance: Appears well, A+O x 3 and In no apparent distress Affect: Pleasant and cooperative Eyes: Sclerae non-icteric Respirations: unlabored. Laboratory Results: Glucose (mg/dL) Date Value 09/01/2017 194 Potassium (mmol/L) Date Value 09/01/2017 4.1 Sodium (mmol/L) Date Value 09/01/2017 140 Chloride (mmol/L) Date Value 09/01/2017 98 CO2 (mmol/L) Date Value 09/01/2017 30 Creatinine (mg/dL) Date Value 09/01/2017 2.10 BUN (mg/dL) Date Value 09/01/2017 59 Anion Gap (mmol/L) Date Value 09/01/2017 12 Calcium (mg/dL) Date Value 09/01/2017 9.0 ALT Date Value Ref Range Status 09/01/2017 10 7 - 38 U/L Final AST Date Value Ref Range Status 09/01/2017 17 13 - 35 U/L Final Hemoglobin (g/dL) Date Value 09/01/2017 8.6 Hematocrit (%) Date Value 09/01/2017 25.9 WBC (k/uL) Date Value 09/01/2017 4.86 Platelet Count (k/uL) Date Value 09/01/2017 70 Hemoglobin A1C (%) Date Value 08/23/2017 5.8 LV Ejection Fraction (%) Date Value 08/24/2017 37 Laboratory Results: ? Glucose (mg/dL) Date Value 08/30/2017 153 Potassium (mmol/L) Date Value 08/30/2017 4.0 Sodium (mmol/L) Date Value 08/30/2017 137 Chloride (mmol/L) Date Value 08/30/2017 98 CO2 (mmol/L) Date Value 08/30/2017 29 Creatinine (mg/dL) Date Value 08/30/2017 2.11 BUN (mg/dL) Date Value 08/30/2017 55 Anion Gap (mmol/L) Date Value 08/30/2017 10 Calcium (mg/dL) Date Value 08/30/2017 8.9 ? ALT Date Value Ref Range Status 08/30/2017 10 7 - 38 U/L Final ? AST Date Value Ref Range Status 08/30/2017 18 13 - 35 U/L Final ? Hemoglobin (g/dL) Date Value 08/30/2017 8.7 Hematocrit (%) Date Value 08/30/2017 26.7 WBC (k/uL) Date Value 08/30/2017 4.38 Platelet Count (k/uL) Date Value 08/30/2017 72 ? Hemoglobin A1C (%) Date Value 08/23/2017 5.8 ? LV Ejection Fraction (%) Date Value 08/24/2017 37 ? Diet: Heart Healthy: Cardiac 4 GM SODIUM and Carb Control: 3--5 CARBS/MEAL (<200 MG CHOL / LOW SAT FAT) ? Diabetes Management in Hospital Hospital ?BG values or ranges: ? Date AM LUNCH DINNER HS 3AM 08/23/17 148 330(H120 103 258 Lantus 20 u 251 08/24/17 263(H9) 289(H9) 228(H8+4) 256(H6) Lantus 15? 90-?105 08/25/17? ?162(H6+2) Lantus 15 u 273(H6+6)? 219(H8+4)? 187(H2)? ?81 08/26/17? ?260(H8+6) Lantus 20 u ?357(H8+10) lantus 10 193(H8+2) 139? ?128 08/27/17 165(H12+H2) Lantus 30u 337(H8+H8) 146(H8) ?85 ?160(H1) ?08/28 203(H12) Lantus 30? 182(H8+H2) ?213(H8+H4) ?303(H4) ?215(H2) ?08/29 ?326(h12+H8) Lantus 36u ?375(H12+H10) 76? ?192(H2) 169(H2)? 08/30/17 230(H4+H12) lantus 36 units? 352(H10+H12) 140(H12)? 155(H2) 89 08/31/17? ?290(H6+H12) Lantus 36 329(h8+H12) 284(H6+H12 255(6H)? ? 09/01/2017 ? 278?(18H) Lantus 40 ?20 units ? Impression/Recommendations:? Patient with uncontrolled Diabetes Mellitus Type 2 W/hyperglycemia?, who was admitted on 08/19/2017 for evaluation of SOB AND orthopnea due to volume overload secondary to HF. We are following for our advice and opinion regarding glycemic control. Glucose levels above target. Will adjust home regimen. ? ? DM DISCHARGE PLAN: THESE WILL SERVE FINAL DISCHARGE RECOMMENDATIONS ? ?Tresiba 45 units qam ? Novolog 12 units with meals plus SSC as follows: ? If Blood Glucose (mg/dL) is <110 Give 0 units 111-150 Give 0 units 151-200 Give 2 unit 201-250 Give 4 units 251-300 Give 6 units 301-350 Give 8 units 351-400 Give 10 units ? >400 Call physician. ? ? ?Check blood sugars AC /HS ? ?Diet: As per Unit Dietitian ? ?Exercise as prescribed by cardiology ? ?Follow up with pipe line inspector and computer project manager as recommended. ? ?Patient will need follow-up at with her home reading recovery teacher/PCP in 1-2 weeks after discharge. Prefer to follow locally - will need to call if BS running over 200 or less than 80 to PCP ? ?Diabetes Care Team Hospital Discharge Help Line: [phone] ? PATIENT EDUCATION DIABETES Patient does not need any dm discharge scripts Monica France APRN.[employer] NUTRITION Observed: 09/01/2017 Status: COMPLETED Source: [place] 10:15 AM [facility] REPOSITORY [facility] ID: [id number] Author: Tomas Jefferson ([employer]) Service: Nutrition Therapy Author Type: Compliance Clerk Type: Nutrition Filed: 09/01/2017 10:16 AM Note Text: NUTRITION THERAPY FOLLOW-UP NOTE SERVICE DATE: 09/01/2017 SERVICE TIME: 845am Anthropometrics: Height: 162.6 cm (5' 4) Current Weight: Weight: 104 kg (229 lb 4.8 oz) Body mass index is 39.36 kg/m?. Loss of lean body mass/visual muscle wasting: no Admitting Diagnosis: Hypervolemia, unspecified hypervolemia type [E87.70] Present Diet Order: Carbohydrate Controlled and Electrolyte Controlled 2 gm Na Is the patient having any pain that is interfering with oral/enteral intake? No Allergies: ALLERGIES Allergen Reactions - Nexium [Esomeprazol* Itching Reason for Visit: Nutrition screen: LOS > 6 days Nutrient intake assessment: Current intake of meals: 75 - 100% Patient concerns/Issues: Patient has a good intake and appetite. Food preferences obtained. Will continue to monitor for changes. Nursing Admission Assessment Malnutrition Score Tool: 1 Plan of Care: Recommendation No problems noted at this time. Will screen again within 7 days Discharge Plan: home on carbohydrate and electrolyte controlled diet MNT Billing Type: Routine Care/15 min 1 unit SIGNATURE: Tomas Jefferson DTR PATIENT NAME: Kalyn Cain DATE: September 01, 2017 TIME: 10:15 AM PAGER: [phone] CBC Collected: 09/01/2017 Status: F Source: [place] 5:28 AM [facility] REPOSITORY TYPE CODE TESTS RESULT OUT OF REFERENCE UNITS RANGE LAB WBC 3.70-11.00 k/uL WBC 4.86 LAB RBC 3.90-5.20 m/uL Low RBC 2.63 LAB HGB 11.5-15.5 g/dL Low Hemoglobin 8.6 LAB HCT 36.0-46.0 % Low Hematocrit 25.9 LAB MCV 80.0-100.0 fL MCV 98.5 LAB MCH 26.0-34.0 pG MCH 32.7 LAB MCHC 30.5-36.0 g/dL MCHC 33.2 LAB RDWCV 11.5-15.0 % RDW-CV 13.9 LAB PLTCT 150-400 k/uL Low Platelet Count 70 Result Comment: No clot detected. LAB MPV 9.0-12.7 fL MPV 12.2 LAB ABSNUC <0.01 k/uL Absolute nRBC <0.01 Performed By: #### CBC, PT, CMP #### [facility] [employer] [address] [place] [place], [place] [address] PROTIME Collected: 09/01/2017 Status: F Source: [place] 5:28 AM [facility] REPOSITORY TYPE CODE TESTS RESULT OUT OF RANGE REFERENCE UNITS LAB PSEC 9.7-13.0 sec PT Sec 12.0 LAB INR 0.9-1.3 PT INR 1.2 Result Comment: Vitamin K Antagonist (VKA) Therapeutic Range: INR 2 to 3 (Target INR of 2.5) Note: For patients treated with VKA drugs, such as warfarin, the [place] College [employer] Chest Physicians 2012 Guideline recommends a therapeutic INR range of 2 to 3 (target INR of 2.5). This recommendation includes high-risk patients with antiphospholipid syndrome with previous arterial or venous thromboembolism, current-generation mechanical or bioprosthetic aortic heart valve replacement. Note: Patients with mechanical aortic valve replacement and additional risk factors for thromboembolic events (atrial fibrillation, previous thromboembolism, LV dysfunction, hypercoagulable conditions) or an older generation mechanical AVR (i.e., ball in-Cage) or any mechanical MVR should have a INR therapeutic range of 2.5 to 3.5 (target INR of 3). Lana VIGIL, et al. Chest 2012, 141:7S-47S Joce SMITH et al. [facility] 2017, 70: 252-289 Performed By: #### CBC, PT, CMP #### [facility] [address] [place], [place] [address] COMP METABOLIC PANEL Collected: 09/01/2017 Status: F Source: [place] 5:28 AM [facility] REPOSITORY TYPE CODE TESTS RESULT OUT OF REFERENCE UNITS RANGE LAB TP 6.3-8.0 g/dL Protein, Total 7.0 LAB ALB 3.9-4.9 g/dL Low Albumin 3.3 LAB CA 8.5-10.2 mg/dL Calcium, Total 9.0 LAB TBIL 0.2-1.3 mg/dL Bilirubin, Total 0.7 LAB ALKP 32-117 U/L Alkaline Phosphatase 82 LAB AST 13-35 U/L AST 17 LAB GLU 74-99 mg/dL Glucose High 194 Result Comment: The [place] Diabetes Association (ADA) provides guidance for cutoff values for fasting glucose and random glucose. The ADA defines fasting as no caloric intake for at least 8 hours. Fas ting plasma glucose results between 100 to 125 mg/dL indicate increased risk for diabetes (prediabetes). Fasting plasma glucose results greater than or equal to 126 mg/dL meet the criteria for diagnosis of diabetes. In the absence of unequivocal hyperglycemia, results should be confirmed by repeat testing. In a patient with classic symptoms of hyperglycemia or hyperglycemic crisis, random plasma glucose results greater than or equal to 200 mg/dL meet the criteria for diagnosis of diabetes. Reference: Standards of Medical Care in Diabetes 2016, [place] Diabetes Association. Diabetes Care. 2016.39(Suppl 1). LAB BUN 7-21 mg/dL BUN High 59 LAB CRET 0.58-0.96 mg/dL Creatinine High 2.10 LAB NA 136-144 mmol/L Sodium 140 LAB K 3.7-5.1 mmol/L Potassium 4.1 LAB CL 97-105 mmol/L Chloride 98 LAB CO2 22-30 mmol/L CO2 30 LAB AGAP 9-18 mmol/L Anion Gap 12 LAB ALT 7-38 U/L ALT 10 LAB GFRAA eGFR- Amer. 28 LAB GFRNAA . eGFR-All Other Races 23 Result Comment: eGFR (Estimated GFR) Units of measure: mL/min/1.73 meters squared eGFR is derived from the reexpressed MDRD Study equation using the following parameters: serum creatinine, age, gender and race. The creatinine assay has been calibrated to be traceable to IDMS. An eGFR <60 mL/min/1.73m2 for >3 months is consistent with chronic kidney disease. Refer to KDOQI guidelines for clinical interpretation. In patients with unstable renal function, e.g. those with acute kidney injury, the eGFR may not accurately reflect actual GFR. Performed By: #### CBC, PT, CMP #### [facility] [address] [id number] CASE MANAGEM Observed: 08/31/2017 Status: COMPLETED Source: [place] 12:19 PM [facility] REPOSITORY HNO ID: [id number] Author: Tania Olguin Service: Care Management Author Type: (none) Type: Care Mgt Progress Note Filed: 08/31/2017 12:20 PM Note Text: CARE MANAGEMENT PROGRESS NOTE SERVICE DATE: 08/31/2017 SERVICE TIME: 12:07 PM LOS: 12 days IM letter given to patient on 08/31/17. SIGNATURE: Tania Olguin Staff Toxicologist PATIENT NAME: Kalyn Cain DATE: August 31, 2017 TIME: 12:19 PM PAGER/CONTACT #: [phone] PROGRESS Observed: 08/31/2017 Status: COMPLETED Source: [place] 7:41 AM [facility] REPOSITORY HNO ID: [id number] Author: Devorah Encinas (Management Retail Intern) Service: Cardiovascular Medicine Author Type: Nurse Practitioner Type: Progress Notes Filed: 08/31/2017 12:10 PM Note Text: [facility] CARDIOVASCULAR MEDICINE PROGRESS NOTE (Template ID [id number]) Kalyn Cain [id number] PRIMARY SERVICE: Supervisor Pipeline/Pa, [facility] Clinical HOSPITAL DAY: # 12 INTERVAL HISTORY No acute events overnight. Diuresed another 2L overnight on oral torsemide. Will watch for one more day and likely d/c tomorrow. PHYSICAL EXAM BP 137/60 Pulse 69 Temp 36.8 ?C (98.2 ?F) (Oral) Resp 18 Ht 162.6 cm (5' 4) Wt 103.5 kg (228 lb 3.2 oz) SpO2 97% BMI 39.17 kg/m? Intake/Output Summary (Last 24 hours) at 08/31/17 0741 Last data filed at 08/31/17 0623 Gross per 24 hour Intake 1020 ml Output 2350 ml Net -1330 ml General Appearance: No acute distress HEENT: Fair dentition Lungs: Decreased breath sounds Heart: Regular rate AND rhythm Abdomen: Soft, Round, Non-tender and Bowel sounds present Skin: Warm and Dry Musculoskeletal: No deformities Neurologic/Psychiatric: Oriented to time, place AND person MEDICATIONS Current hospital medications: torsemide 40 mg tab(s) (DEMADEX) 40 mg ORAL BID 9A/1P insulin lispro 12 Units injection (rapid acting) (HumaLOG) 12 Units SUBCUTANEOUS DAILY wLUNCH insulin lispro 12 Units injection (rapid acting) (HumaLOG) 12 Units SUBCUTANEOUS DAILY wDINNER insulin glargine 36 Units pen (long acting) (LANTUS SOLOSTAR, BASAGLAR) 36 Units SUBCUTANEOUS DAILY (9 AM) senna 8.6 mg tab(s) (SENOKOT) 8.6 mg ORAL BID insulin lispro injection (rapid acting) (HumaLOG) SUBCUTANEOUS w MEALS AND HS insulin lispro injection (rapid acting) (HumaLOG) SUBCUTANEOUS Daily (3 AM) insulin lispro 12 Units injection (rapid acting) (HumaLOG) 12 Units SUBCUTANEOUS DAILY WITH BREAKFAST carvedilol 6.25 mg tab(s) (COREG) 6.25 mg ORAL BID w MEALS traMADol 50 mg tab(s) (ULTRAM) 50 mg ORAL q 6 H PRN 0.9% NaCl 3-5 mL 3-5 mL INTRAVENOUS q 12 H heparin 5,000 Units injection 5,000 Units SUBCUTANEOUS q 12 H gabapentin 300 mg cap(s) (NEURONTIN) 300 mg ORAL BID atorvastatin 40 mg tab(s) (LIPITOR) 40 mg ORAL DAILY aspirin, enteric coated 81 mg tab(s) (ASPIRIN, ENTERIC COATED) 81 mg ORAL DAILY AT 9 PM clopidogrel 75 mg tab(s) (PLAVIX) 75 mg ORAL DAILY pantoprazole DR 20 mg tab(s) (PROTONIX) 20 mg ORAL DAILY levothyroxine (SYNTHROID) tab(s) 137 mcg 137 mcg ORAL BEFORE BREAKFAST DAILY dextrose 40 % 15 g 15 g ORAL PRN glucagon 1 mg injection (GLUCAGEN) 1 mg INTRAMUSCULAR PRN dextrose 50% in water 25 mL syringe 12.5 g INTRAVENOUS PRN DATA Recent Labs 08/30/17 0524 08/29/17 0535 WBC 4.38 5.15 HB 8.7* 9.1* HCT 26.7* 27.9* PLT 72* 72* Recent Labs 08/30/17 0524 08/29/17 0535 NA 137 138 K 4.0 4.2 CO2 29 26 BUN 55* 52* CREAT 2.11* 2.02* GLUC 153* 244* ASSESSMENT AND PLAN Presentation/Indication for admission/procedure: Hypervolemia, unspecified hypervolemia type [E87.70] LVEF: 37 RVEF: low normal Cards: [facility] Cath: LM 100% ostial, LCx/RCA 100% ostial. 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 Pearson note) c/b portal HTN, EV (EGD 05/12 very small EV, on Coreg), [place] 2003 s/p CABGx3 (03/2004 SVG to Lcx, SVG to RCA and MCCONNELL graft to the LAD), ICM s/p CRTD placement (12/2010) (On ASA and Plavix), PAD s/p left lower extremity stenting (on ASA and Plavix) HFrEF (EF=40%), DMT2 (on insulin) and CKD stage 4 Procedure/OR performed (including complications): Echocardiogram Brief Hospital Course/Narrative: Mrs. Kalyn Cain was admitted through the Emergency Department with symptoms of shortness of breath, orthopnea, and lower extremity swelling over previous 2-3weeks. Given a recent CT scan done locally which showed swelling around liver AND spleen along with a concurrent history of HCV Cirrhosis, she was admitted to hepatology service. She was diuresed with IV lasix, however, underwent an echocardiogram which showed an ejection fraction of 40%, grade III diastolic dysfunction, low normal RV systolic function. Therefore, her fluid overload was felt to be related to heart dysfunction and she was transferred to cardiology service for further care. Issues to communicate: Observe on oral torsemide D/c 09/01- follow up appointment with local proposition player made, in d/c instructions Problem Acute On Chronic Combined Systolic and Diastolic Chf (Congestive Heart Failure) ([facility]) History: Acute decompensated systolic HF Assessment: Moderate volume overload. Dry weight 230lb. Plan: Oral torsemide, coreg. Resume altace, aldactone when able Coronary Artery Disease Involving [place] Coronary Artery of [place] Heart Without Angina Pectoris History: [place] 2004 s/p CABG x3 Assessment: Last cath 2016: LM 100% ostial, LCx/RCA 100% ostial. Patent MCCONNELL-LAD, SVG-RPDA, SVG-OM1 Plan: ASA, coreg, lipitor Cardiac Resynchronization Therapy Defibrillator (Pharmacist-D) in Place History: BSX N119 COGNIS 100-D 01/05/11 Assessment: BiV pacing 100% Plan: Device check done Pad (Peripheral Artery Disease) ([facility]) History: Hx claudication Assessment: s/p remote LE stenting Plan: ASA, plavix Ckd (Chronic Kidney Disease) Stage 4, Gfr 15-29 Ml/Min ([facility]) History: Baseline creat 2-2.2 Assessment: CKD stage 4, GFR 23 Plan: Monitor while diuresing Htn (Hypertension), Benign History: On coreg 12.5 bid, lasix 40 at home Assessment: Fairly well controlled Plan: Continue carvedilol. Monitor while diuresing. Titrate as needed Hyperlipidemia Ldl Goal <70 History: On lipitor 40 at home Assessment: LDL 44 Plan: Continue lipitor. Diabetes Mellitus Type 2 With Peripheral Artery Disease (Hcc) History: On Insulin Assessment: A1c 5.8 Plan: BG uncontrolled here. 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 Juni Encinas, MAICOL.[facility] Pager [phone] (please see below for after hours communication) 08/31/2017 7:41 AM For communication after 5 pm on weekdays and after 12 pm on weekends, please page the following: - Clinical Cardiology patients on all floors: page [phone] - Other Cardiology patients on J5 and J6: page [phone] - Other Cardiology patients on J7 and J8: page [phone] CONSULT PROG Observed: 08/31/2017 Status: COMPLETED Source: [place] 7:11 AM [facility] [place] REPOSITORY HNO ID: [id number] Author: Columba Mathis ([facility]) Service: Endocrinology Author Type: Nurse Practitioner Type: Consult Progress Note Filed: 08/31/2017 8:34 PM Note Text: DIABETES CARE TEAM NOTE SERVICE DATE: 08/31/2017 SERVICE TIME: 7:11 AM ? Summary of History from Prior Record: Consult Date: 08/24/2017 ? HPI: Ms. Kalyn Cain is a 67 year old female with a >30?year history of Diabetes Mellitus Type 2 hyperglycemia?who was admitted on 08/19/2017 for evaluation of SOB + orthopnea. Past medical history significant for CAD s/p CABG x 4 03/2004 cirrhosis d/t chronic hepatitis C, portal HTN, ? HF CKD stage 3. Patient ?does ?exercise. Last HbA1c was 5.8% on 08/23/2017 ( not accurate as patient have chronic macrocytic anemia). ?She has no?family history of diabetes. She is followed by Dr. Ana Gutierrez ( [employer] reading recovery teacher) at [facility]?for her diabetes. ? ? DIABETIC COMPLICATIONS: Nephropathy: CKD stage 3 Neuropathy: Polyneuropathy CAD ? Pre-Admission DM Regimen: Preadmission oral agents: None Preadmission insulin regimen: Tresiba 60units ?Q am Novolog Sliding scale ?With meals starts with 10 units when BG before po intake is 150 mg/dL ? ? Self Monitoring Blood Glucose: Type of Monitor: Accucheck ? Frequency of Monitorin?times a day and PRN BG Values: 100-200 Hypoglycemia: Yes, Frequency: none for ?A year but had BG in 11 and in 1500 and has been hospitalized for lows in past x3 and once for high 1500 which related that to one of meds that she was on Symptoms: Shakiness and Sweating Feel symptoms when BS is 100?mg/dL 08/31/2017 12:47 PM INTERVAL HPI: Feeling well Plans for discharge today per primary team PERTINENT ROS: Constitutional:Feels well, no complaints Appetite:Intact GI:No nausea, no vomitting, no diarrhea, no constipation Objective PHYSICAL EXAM: BP 137/60 Pulse 69 Temp 36.8 ?C (98.2 ?F) (Oral) Resp 18 Ht 162.6 cm (5' 4) Wt 103.5 kg (228 lb 3.2 oz) SpO2 97% BMI 39.17 kg/m? General Appearance:A+O x 3, In no apparent distress and sitting up in chair Affect:Pleasant and cooperative Eyes:Sclerae non-icteric Laboratory Results: Glucose (mg/dL) Date Value 08/30/2017 153 Potassium (mmol/L) Date Value 08/30/2017 4.0 Sodium (mmol/L) Date Value 08/30/2017 137 Chloride (mmol/L) Date Value 08/30/2017 98 CO2 (mmol/L) Date Value 08/30/2017 29 Creatinine (mg/dL) Date Value 08/30/2017 2.11 BUN (mg/dL) Date Value 08/30/2017 55 Anion Gap (mmol/L) Date Value 08/30/2017 10 Calcium (mg/dL) Date Value 08/30/2017 8.9 ALT Date Value Ref Range Status 08/30/2017 10 7 - 38 U/L Final AST Date Value Ref Range Status 08/30/2017 18 13 - 35 U/L Final Hemoglobin (g/dL) Date Value 08/30/2017 8.7 Hematocrit (%) Date Value 08/30/2017 26.7 WBC (k/uL) Date Value 08/30/2017 4.38 Platelet Count (k/uL) Date Value 08/30/2017 72 Hemoglobin A1C (%) Date Value 08/23/2017 5.8 LV Ejection Fraction (%) Date Value 08/24/2017 37 Diet: Heart Healthy: Cardiac 2 GM SODIUM (<200 MG CHOL / LOW SAT FAT) and Carb Control: 3--5 CARBS/MEAL (<200 MG CHOL / LOW SAT FAT) Objective ? PHYSICAL EXAM: BP 119/54 Pulse 71 Temp 36.5 ?C (97.7 ?F) (Oral) Resp 16 Ht 162.6 cm (5' 4) Wt 103.8 kg (228 lb 14.4 oz) SpO2 100% BMI 39.29 kg/m? General Appearance:A+O x 3 and In no apparent distress and sitting up in chair Affect:Pleasant and cooperative Eyes:Sclerae non-icteric ? Laboratory Results: ? Glucose (mg/dL) Date Value 08/30/2017 153 Potassium (mmol/L) Date Value 08/30/2017 4.0 Sodium (mmol/L) Date Value 08/30/2017 137 Chloride (mmol/L) Date Value 08/30/2017 98 CO2 (mmol/L) Date Value 08/30/2017 29 Creatinine (mg/dL) Date Value 08/30/2017 2.11 BUN (mg/dL) Date Value 08/30/2017 55 Anion Gap (mmol/L) Date Value 08/30/2017 10 Calcium (mg/dL) Date Value 08/30/2017 8.9 ? ALT Date Value Ref Range Status 08/30/2017 10 7 - 38 U/L Final ? AST Date Value Ref Range Status 08/30/2017 18 13 - 35 U/L Final ? Hemoglobin (g/dL) Date Value 08/30/2017 8.7 Hematocrit (%) Date Value 08/30/2017 26.7 WBC (k/uL) Date Value 08/30/2017 4.38 Platelet Count (k/uL) Date Value 08/30/2017 72 ? Hemoglobin A1C (%) Date Value 08/23/2017 5.8 ? LV Ejection Fraction (%) Date Value 08/24/2017 37 ? Diet: Heart Healthy: Cardiac 4 GM SODIUM and Carb Control: 3--5 CARBS/MEAL (<200 MG CHOL / LOW SAT FAT) ? Diabetes Management in Hospital Hospital ?BG values or ranges: ? Date AM LUNCH DINNER HS 3AM 08/23/17 148 330(H120 103 258 Lantus 20 u 251 08/24/17 263(H9) 289(H9) 228(H8+4) 256(H6) Lantus 15? 90-?105 08/25/17? ?162(H6+2) Lantus 15 u 273(H6+6)? 219(H8+4)? 187(H2)? ?81 08/26/17? ?260(H8+6) Lantus 20 u ?357(H8+10) lantus 10 193(H8+2) 139? ?128 08/27/17 165(H12+H2) Lantus 30u 337(H8+H8) 146(H8) ?85 ?160(H1) ?08/28 203(H12) Lantus 30? 182(H8+H2) ?213(H8+H4) ?303(H4) ?215(H2) ?08/29 ?326(h12+H8) Lantus 36u ?375(H12+H10) 76? ?192(H2) 169(H2)? 08/30/17 230(H4+H12) lantus 36 units? 352(H10+H12) 140(H12)? 155(H2) 89 08/31/17? ?290(H6+H12) lantus 36 329(h8+H12) 284(H6+H12) ? Impression/Recommendations:? Patient with uncontrolled Diabetes Mellitus Type 2 hyperglycemia?, who was admitted on 08/19/2017 for evaluation of SOB + orthopnea?whom we have been consulted for glycemic control. SOB + orthopnea due to volume overload secondary to HF. BS overall are variable. Will continue to adjust as needed. No set patterns noted. ? ? ? RECOMMENDATIONS: ? ?Basal Insulin: Lantus 36?units QAM ? ??Prandial Insulin: Humalog 12?units AC TID ? ?Supplemental Sliding Scale: Humalog Program #2 AC/?HS and 0300 ? ?Accuchecks: AC/HS and 3am ? ?Recommend As per Unit Dietitian ? ?Consult CDE regarding: DM Education including none 8:34 PM BS globally high. Will increase basal for tomorrow. ? DM DISCHARGE PLAN for 08/31/17 only: ? ?Tresiba 36 units am ? Novolog 12 units with meals plus With meals only: ? If Blood Glucose (mg/dL) is <110 Give 0 units 111-150 Give 0 units 151-200 Give 2 unit 201-250 Give 4 units 251-300 Give 6 units 301-350 Give 8 units 351-400 Give 10 units ? >400 Call physician. ? ? ?Check blood sugars AC /HS ? ?Diet: As per Unit Dietitian ? ?Exercise as prescribed by cardiology ? ?Follow up with pipe line inspector and computer project manager as recommended. ? ?Patient will need follow-up at with her home reading recovery teacher/PCP in 1-2 weeks after discharge. Prefer to follow locally - will need to call if BS running over 200 or less than 80 to PCP ? ?Diabetes Care Team Hospital Discharge Help Line: [phone] ? PATIENT EDUCATION DIABETES Patient does not need any dm discharge scripts for dis SIGNATURE: Columba Mathis, ENGINEERING PROGRAM ANALYST.[employer] PATIENT NAME: Kalyn Cain DATE: August 31, 2017 TIME: 7:11 AM PAGER/CONTACT #: Columba Mathis, MSN, RN, ORE SAMPLER-C Endocrinology Metabolic [place] Pager [phone] Inpatient Endo ORE SAMPLER from 0800 to 1800 After 1800 please page Endo business solution analyst at ext [phone] PROTIME Collected: 08/31/2017 Status: F Source: [place] 5:28 AM [facility] REPOSITORY TYPE CODE TESTS RESULT OUT OF RANGE REFERENCE UNITS LAB PSEC 9.7-13.0 sec PT Sec 11.9 LAB INR 0.9-1.3 PT INR 1.2 Result Comment: Vitamin K Antagonist (VKA) Therapeutic Range: INR 2 to 3 (Target INR of 2.5) Note: For patients treated with VKA drugs, such as warfarin, the [place] College of Chest Physicians 2012 Guideline recommends a therapeutic INR range of 2 to 3 (target INR of 2.5). This recommendation includes high-risk patients with antiphospholipid syndrome with previous arterial or venous thromboembolism, current-generation mechanical or bioprosthetic aortic heart valve replacement. Note: Patients with mechanical aortic valve replacement and additional risk factors for thromboembolic events (atrial fibrillation, previous thromboembolism, LV dysfunction, hypercoagulable conditions) or an older generation mechanical AVR (i.e., ball in-Cage) or any mechanical MVR should have a INR therapeutic range of 2.5 to 3.5 (target INR of 3). Lana GH, et al. Chest 2012, 141:7S-47S Joce RA, et al. JACC 2017, 70: 252-289 Performed By: #### PT, CMP, CBC #### [facility] [employer] [address] [place], [place] [address] COMP METABOLIC PANEL Collected: 08/31/2017 Status: F Source: [place] 5:28 AM [facility] REPOSITORY TYPE CODE TESTS RESULT OUT OF REFERENCE UNITS RANGE LAB TP 6.3-8.0 g/dL Protein, Total 6.9 LAB ALB 3.9-4.9 g/dL Low Albumin 3.1 LAB CA 8.5-10.2 mg/dL Calcium, Total 8.8 LAB TBIL 0.2-1.3 mg/dL Bilirubin, Total 0.7 LAB ALKP 32-117 U/L Alkaline Phosphatase 79 LAB AST 13-35 U/L AST 19 LAB GLU 74-99 mg/dL Glucose High 151 Result Comment: The [place] Diabetes Association (ADA) provides guidance for cutoff values for fasting glucose and random glucose. The ADA defines fasting as no caloric intake for at least 8 hours. Fas ting plasma glucose results between 100 to 125 mg/dL indicate increased risk for diabetes (prediabetes). Fasting plasma glucose results greater than or equal to 126 mg/dL meet the criteria for diagnosis of diabetes. In the absence of unequivocal hyperglycemia, results should be confirmed by repeat testing. In a patient with classic symptoms of hyperglycemia or hyperglycemic crisis, random plasma glucose results greater than or equal to 200 mg/dL meet the criteria for diagnosis of diabetes. Reference: Standards of Medical Care in Diabetes 2016, [place] Diabetes Association. Diabetes Care. 2016.39(Suppl 1). LAB BUN 7-21 mg/dL BUN High 56 LAB CRET 0.58-0.96 mg/dL Creatinine High 2.15 LAB NA 136-144 mmol/L Sodium 137 LAB K 3.7-5.1 mmol/L Potassium 4.1 LAB CL 97-105 mmol/L Chloride 97 LAB CO2 22-30 mmol/L CO2 27 LAB AGAP 9-18 mmol/L Anion Gap 13 LAB ALT 7-38 U/L ALT 12 LAB GFRAA eGFR- Amer. 28 LAB GFRNAA . eGFR-All Other Races 23 Result Comment: eGFR (Estimated GFR) Units of measure: mL/min/1.73 meters squared eGFR is derived from the reexpressed MDRD Study equation using the following parameters: serum creatinine, age, gender and race. The creatinine assay has been calibrated to be traceable to IDMS. An eGFR <60 mL/min/1.73m2 for >3 months is consistent with chronic kidney disease. Refer to KDOQI guidelines for clinical interpretation. In patients with unstable renal function, e.g. those with acute kidney injury, the eGFR may not accurately reflect actual GFR. Performed By: #### PT, CMP, CBC #### [facility] [employer] [address] [place], [place] [address] CBC Collected: 08/31/2017 Status: F Source: [place] 5:28 AM [facility] REPOSITORY TYPE CODE TESTS RESULT OUT OF REFERENCE UNITS RANGE LAB WBC 3.70-11.00 k/uL WBC 4.78 LAB RBC 3.90-5.20 m/uL Low RBC 2.77 LAB HGB 11.5-15.5 g/dL Low Hemoglobin 8.7 LAB HCT 36.0-46.0 % Low Hematocrit 27.3 LAB MCV 80.0-100.0 fL MCV 98.6 LAB MCH 26.0-34.0 pG MCH 31.4 LAB MCHC 30.5-36.0 g/dL MCHC 31.9 LAB RDWCV 11.5-15.0 % RDW-CV 13.9 LAB PLTCT 150-400 k/uL Low Platelet Count 70 Result Comment: No clot detected. LAB MPV 9.0-12.7 fL MPV 12.5 LAB ABSNUC <0.01 k/uL Absolute nRBC <0.01 Performed By: #### PT, CMP, CBC #### [facility] [address] [place], [place] [address] PT ED Observed: 08/30/2017 Status: COMPLETED Source: [place] 1:53 PM [facility] REPOSITORY HNO ID: [id number] Author: Cindi Rios (Lisandro) Service: Diabetes Education Author Type: Registered Dietitian Type: Patient Education Filed: 08/30/2017 1:55 PM Note Text: PATIENT EDUCATION DIABETES Patient does not need any dm discharge scripts ? See 08/23/17 and 08/24/17 and 08/25/17 Cindi Rios diabetes education note Progress note: Reinforced with patient; humalog meal time dose and correction = when patient eats a meals. Correction only = does not eat a meals. Patient stated she understood recommendations. Patient's not available at this time. PATIENT NAME: Kalyn Cain PATIENT LOCATION: [place] [id number] Electronically Signed By: Cindi Rios RD CDE MPH beeper: [id number] URINALYSIS Collected: 08/30/2017 Status: F Source: [place] 1:51 PM [facility] REPOSITORY TYPE CODE TESTS RESULT OUT OF RANGE REFERENCE UNITS LAB UCOL Yellow Color Yellow LAB [facility] Clear Clarity Clear LAB UGLUC Negative mg/dL Glucose, Urine Negative LAB UBIL Negative Bilirubin, Urine Negative LAB UKET Negative Ketones, Urine Negative LAB USPG 1.005-1.030 Specific [place], Ur 1.013 LAB UHGB Negative Abnormal Hemoglobin/Blood, 1+ Alert Ur LAB UPH 4.5-8.0 pH 5.0 LAB UPROT Negative mg/dL Protein, Abnormal Urine 30 Alert LAB UUROB Normal Abnormal Urobilinogen Elevated Alert LAB UNITR Negative Nitrites Negative LAB ULKEST Negative Leukest Abnormal Trace Alert LAB UCOM Comments SEE COMMENT Result Comment: Microscopic Examination Performed LAB UWBC 0-5 /HPF WBC 0-5 LAB URBC 0-3 /HPF RBC 0-3 LAB UCAST 0 /LPF Abnormal Alert Cast SEE COMMENT Result Comment: >10 Hyaline Cast LAB UEPI /HPF Epithelial SEE Cells COMMENT Result Comment: Few Squamous Epithelial Cells LAB UMCOM Urine SEE Jacob Comment COMMENT Result Comment: N/A Performed By: #### UA, PRARIKA #### [facility] [address] [place] [id number] PROTEIN/CREATININE RATIO Collected: Status: F Source: [place] 08/30/2017 1:51 PM [facility] REPOSITORY TYPE CODE TESTS RESULT OUT OF REFERENCE UNITS RANGE LAB UTPR 0-20 mg/dL Protein Urine 12 Random LAB UCRR 20-300 mg/dL Creatinine,Ur 109.1 ine,Ran LAB PCRAT <0.2 Protein/Creat 0.1 inine Ratio Performed By: #### UA, PRARIKA #### [facility] [address] [place], [place] [address] CASE MANAGEM Observed: 08/30/2017 Status: COMPLETED Source: [place] 12:02 PM [facility] REPOSITORY HNO ID: [id number] Author: Abelino Bennett (Rn), RN Service: Care Management Author Type: Registered Nurse Type: Care Mgt Progress Note Filed: 08/30/2017 12:08 PM Note Text: CARE MANAGEMENT PROGRESS NOTE SERVICE DATE: 08/30/2017 SERVICE TIME: 1200 LOS: 11 days Needs Prior to Discharge: To Be Determined Pt ambulating in her room and currently on RA. PT previously recommended home/no therapy needs. Patient currently does not have discharge needs from CM standpoint. CM will continue to evaluate for evolving discharge needs. SIGNATURE: Abelino Bennett RN PATIENT NAME: Kalyn Cain DATE: August 30, 2017 TIME: 12:02 PM PAGER/CONTACT #:[phone] PROGRESS Observed: 08/30/2017 Status: COMPLETED Source: [place] 9:07 AM [facility] REPOSITORY HNO ID: [id number] Author: Devorah Encinas ([facility]) Service: Cardiovascular Medicine Author Type: Nurse Practitioner Type: Progress Notes Filed: 08/30/2017 1:04 PM Note Text: [facility] CARDIOVASCULAR MEDICINE PROGRESS NOTE (Template ID [id number]) Kalyn Cain [id number] PRIMARY SERVICE: Supervisor Pipeline/Pa, i Clinical HOSPITAL DAY: # 11 INTERVAL HISTORY No acute events overnight. Diuresed ~900 cc overnight- at dry weight. Will switch to oral torsemide. PHYSICAL EXAM BP 112/51 Pulse 70 Temp 36.9 ?C (98.4 ?F) (Oral) Resp 18 Ht 162.6 cm (5' 4) Wt 103.7 kg (228 lb 9.9 oz) SpO2 98% BMI 39.24 kg/m? Intake/Output Summary (Last 24 hours) at 08/30/17 1303 Last data filed at 08/30/17 1100 Gross per 24 hour Intake 120 ml Output 1400 ml Net -1280 ml General Appearance: No acute distress HEENT: PERRLA Lungs: Decreased breath sounds Heart: Regular rate AND rhythm Abdomen: Soft, Round, Non-tender and Bowel sounds present Skin: Warm and Dry Musculoskeletal: No deformities Neurologic/Psychiatric: Oriented to time, place AND person MEDICATIONS Current hospital medications: torsemide 40 mg tab(s) (DEMADEX) 40 mg ORAL BID 9A/1P insulin lispro 12 Units injection (rapid acting) (HumaLOG) 12 Units SUBCUTANEOUS DAILY wLUNCH insulin lispro 12 Units injection (rapid acting) (HumaLOG) 12 Units SUBCUTANEOUS DAILY wDINNER insulin glargine 36 Units pen (long acting) (LANTUS SOLOSTAR, BASAGLAR) 36 Units SUBCUTANEOUS DAILY (9 AM) senna 8.6 mg tab(s) (SENOKOT) 8.6 mg ORAL BID insulin lispro injection (rapid acting) (HumaLOG) SUBCUTANEOUS w MEALS AND HS insulin lispro injection (rapid acting) (HumaLOG) SUBCUTANEOUS Daily (3 AM) insulin lispro 12 Units injection (rapid acting) (HumaLOG) 12 Units SUBCUTANEOUS DAILY WITH BREAKFAST carvedilol 6.25 mg tab(s) (COREG) 6.25 mg ORAL BID w MEALS traMADol 50 mg tab(s) (ULTRAM) 50 mg ORAL q 6 H PRN 0.9% NaCl 3-5 mL 3-5 mL INTRAVENOUS q 12 H heparin 5,000 Units injection 5,000 Units SUBCUTANEOUS q 12 H gabapentin 300 mg cap(s) (NEURONTIN) 300 mg ORAL BID atorvastatin 40 mg tab(s) (LIPITOR) 40 mg ORAL DAILY aspirin, enteric coated 81 mg tab(s) (ASPIRIN, ENTERIC COATED) 81 mg ORAL DAILY AT 9 PM clopidogrel 75 mg tab(s) (PLAVIX) 75 mg ORAL DAILY pantoprazole DR 20 mg tab(s) (PROTONIX) 20 mg ORAL DAILY levothyroxine (SYNTHROID) tab(s) 137 mcg 137 mcg ORAL BEFORE BREAKFAST DAILY dextrose 40 % 15 g 15 g ORAL PRN glucagon 1 mg injection (GLUCAGEN) 1 mg INTRAMUSCULAR PRN dextrose 50% in water 25 mL syringe 12.5 g INTRAVENOUS PRN DATA Recent Labs 08/30/17 0524 08/29/17 0535 08/28/17 0515 WBC 4.38 5.15 5.13 HB 8.7* 9.1* 9.2* HCT 26.7* 27.9* 28.2* PLT 72* 72* 74* Recent Labs 08/30/17 0524 08/29/17 0535 08/28/17 0515 NA 137 138 138 K 4.0 4.2 4.2 CO2 29 26 28 BUN 55* 52* 49* CREAT 2.11* 2.02* 2.05* GLUC 153* 244* 126* ASSESSMENT AND PLAN Presentation/Indication for admission/procedure: Hypervolemia, unspecified hypervolemia type [E87.70] LVEF: 37 RVEF: low normal Cards: Polowski Cath: LM 100% ostial, LCx/RCA 100% ostial. 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 Pearson note) c/b portal HTN, EV (EGD 05/12 very small EV, on Coreg), [place] 2003 s/p CABGx3 (03/2004 SVG to Lcx, SVG to RCA and MCCONNELL graft to the LAD), ICM s/p CRTD placement (12/2010) (On ASA and Plavix), PAD s/p left lower extremity stenting (on ASA and Plavix) HFrEF (EF=40%), DMT2 (on insulin) and CKD stage 4 Procedure/OR performed (including complications): Echocardiogram Brief Hospital Course/Narrative: Mrs. Kalyn Cain was admitted through the Emergency Department with symptoms of shortness of breath, orthopnea, and lower extremity swelling over previous 2-3weeks. Given a recent CT scan done locally which showed swelling around liver AND spleen along with a concurrent history of HCV Cirrhosis, she was admitted to hepatology service. She was diuresed with IV lasix, however, underwent an echocardiogram which showed an ejection fraction of 40%, grade III diastolic dysfunction, low normal RV systolic function. Therefore, her fluid overload was felt to be related to heart dysfunction and she was transferred to cardiology service for further care. Issues to communicate: Switch to oral torsemide Dry weight 230lb Problem Acute On Chronic Combined Systolic and Diastolic Chf (Congestive Heart Failure) ([facility]) History: Acute decompensated systolic HF Assessment: Moderate volume overload. Dry weight 230lb. Warm and wet Plan: Oral torsemide, coreg. Resume altace, aldactone when able Coronary Artery Disease Involving [place] Coronary Artery of [place] Heart Without Angina Pectoris History: [place] 2003 s/p CABG x3 Assessment: Last cath 2016: LM 100% ostial, LCx/RCA 100% ostial. Patent MCCONNELL-LAD, SVG-RPDA, SVG-OM1 Plan: ASA, coreg, lipitor Cardiac Resynchronization Therapy Defibrillator (Pharmacist-D) in Place History: BSX N119 COGNIS 100-D 01/05/11 Assessment: BiV pacing 100% Plan: Device check done Pad (Peripheral Artery Disease) ([facility]) History: Hx claudication Assessment: s/p remote LE stenting Plan: ASA, plavix Ckd (Chronic Kidney Disease) Stage 4, Gfr 15-29 Ml/Min (Hcc) History: Baseline creat 2-2.2 Assessment: CKD stage 4, GFR 23 Plan: Monitor while diuresing Htn (Hypertension), Benign History: On coreg 12.5 bid, lasix 40 at home Assessment: Fairly well controlled Plan: Continue carvedilol. Monitor while diuresing. Titrate as needed Hyperlipidemia Ldl Goal <70 History: On lipitor 40 at home Assessment: LDL 44 Plan: Continue lipitor. Diabetes Mellitus Type 2 With Peripheral Artery Disease (Hcc) History: On Insulin Assessment: A1c 5.8 Plan: BG uncontrolled here. 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 Juni Encinas, MAICOL.[facility] Pager [phone] (please see below for after hours communication) 08/30/2017 1:03 PM For communication after 5 pm on weekdays and after 12 pm on weekends, please page the following: - Clinical Cardiology patients on all floors: page [phone] - Other Cardiology patients on J5 and J6: page [phone] - Other Cardiology patients on J7 and J8: page [phone] CONSULT PROG Observed: 08/30/2017 Status: COMPLETED Source: [place] 7:35 AM [facility] REPOSITORY HNO ID: [id number] Author: Columba Mathis (Management Retail Intern) Service: Endocrinology Author Type: Nurse Practitioner Type: Consult Progress Note Filed: 08/30/2017 6:20 PM Note Text: DIABETES CARE TEAM NOTE SERVICE DATE: 08/30/2017 SERVICE TIME: 7:35 AM Summary of History from Prior Record: Consult Date: 08/24/2017 ? HPI: Ms. Kalyn Cain is a 67 year old female with a >30?year history of Diabetes Mellitus Type 2 hyperglycemia?who was admitted on 08/19/2017 for evaluation of SOB + orthopnea. Past medical history significant for CAD s/p CABG x 4 03/2004 cirrhosis d/t chronic hepatitis C, portal HTN, ? HF CKD stage 3. Patient ?does ?exercise. Last HbA1c was 5.8% on 08/23/2017 ( not accurate as patient have chronic macrocytic anemia). ?She has no?family history of diabetes. She is followed by Dr. Ana Gutierrez ( Girdler reading recovery teacher) at [facility]?for her diabetes. ? ? DIABETIC COMPLICATIONS: Nephropathy: CKD stage 3 Neuropathy: Polyneuropathy CAD ? Pre-Admission DM Regimen: Preadmission oral agents: None Preadmission insulin regimen: Tresiba 60units ?Q am Novolog Sliding scale ?With meals starts with 10 units when BG before po intake is 150 mg/dL ? ? Self Monitoring Blood Glucose: Type of Monitor: Accucheck ? Frequency of Monitorin?times a day and PRN BG Values: 100-200 Hypoglycemia: Yes, Frequency: none for ?A year but had BG in 11 and in 1500 and has been hospitalized for lows in past x3 and once for high 1500 which related that to one of meds that she was on Symptoms: Shakiness and Sweating Feel symptoms when BS is 100?mg/dL 08/30/2017 2:30 PM INTERVAL HPI: Feeling okay Generalized weakness PERTINENT ROS: Constitutional:Feels well, no complaints Appetite:Intact GI:No nausea, no vomitting, no diarrhea, no constipation Objective PHYSICAL EXAM: BP 119/54 Pulse 71 Temp 36.5 ?C (97.7 ?F) (Oral) Resp 16 Ht 162.6 cm (5' 4) Wt 103.8 kg (228 lb 14.4 oz) SpO2 100% BMI 39.29 kg/m? General Appearance:A+O x 3 and In no apparent distress and sitting up in chair Affect:Pleasant and cooperative Eyes:Sclerae non-icteric Laboratory Results: Glucose (mg/dL) Date Value 08/30/2017 153 Potassium (mmol/L) Date Value 08/30/2017 4.0 Sodium (mmol/L) Date Value 08/30/2017 137 Chloride (mmol/L) Date Value 08/30/2017 98 CO2 (mmol/L) Date Value 08/30/2017 29 Creatinine (mg/dL) Date Value 08/30/2017 2.11 BUN (mg/dL) Date Value 08/30/2017 55 Anion Gap (mmol/L) Date Value 08/30/2017 10 Calcium (mg/dL) Date Value 08/30/2017 8.9 ALT Date Value Ref Range Status 08/30/2017 10 7 - 38 U/L Final AST Date Value Ref Range Status 08/30/2017 18 13 - 35 U/L Final Hemoglobin (g/dL) Date Value 08/30/2017 8.7 Hematocrit (%) Date Value 08/30/2017 26.7 WBC (k/uL) Date Value 08/30/2017 4.38 Platelet Count (k/uL) Date Value 08/30/2017 72 Hemoglobin A1C (%) Date Value 08/23/2017 5.8 LV Ejection Fraction (%) Date Value 08/24/2017 37 Diet: Heart Healthy: Cardiac 4 GM SODIUM and Carb Control: 3--5 CARBS/MEAL (<200 MG CHOL / LOW SAT FAT) ? Diabetes Management in Hospital Hospital ?BG values or ranges: ? Date AM LUNCH DINNER HS 3AM 08/23/17 148 330(H120 103 258 Lantus 20 u 251 08/24/17 263(H9) 289(H9) 228(H8+4) 256(H6) Lantus 15? 90-?105 08/25/17? ?162(H6+2) Lantus 15 u 273(H6+6)? 219(H8+4)? 187(H2)? ?81 08/26/17? ?260(H8+6) Lantus 20 u ?357(H8+10) lantus 10 193(H8+2) 139? ?128 08/27/17 165(H12+H2) Lantus 30u 337(H8+H8) 146(H8) ?85 ?160(H1) ?08/28 203(H12) Lantus 30? 182(H8+H2) ?213(H8+H4) ?303(H4) ?215(H2) ?08/29 ?326(h12+H8) Lantus 36u ?375(H12+H10) 76? ?192(H2) 169(H2)? 08/30/17 230(H4+H12) lantus 36 units? 352(H10+H12) 140(*)? Impression/Recommendations:? Patient with uncontrolled Diabetes Mellitus Type 2 hyperglycemia?, who was admitted on 08/19/2017 for evaluation of SOB + orthopnea?whom we have been consulted for glycemic control. SOB + orthopnea due to volume overload secondary to HF. On full MDI with BS still high. Will increase basal if needed for today if bS remain globally high. ? ? RECOMMENDATIONS: ? ?Basal Insulin: Lantus 36?units QAM ? ??Prandial Insulin: Humalog 12-12-12 units AC TID ? ?Supplemental Sliding Scale: Humalog Program #2 AC/ HS and 0300 ? ?Accuchecks: AC/HS and 3am ? ?Recommend As per Unit Dietitian ? ?Consult CDE regarding: DM Education including none ? 1? DM DISCHARGE PLAN: ? ?MDI insulin of Tresiba and Novolog ?Doses TBD ? ?Check blood sugars Four times a Day? ? ?Diet: As per Unit Dietitian ? ?Exercise as prescribed by cardiology ? ?Follow up with pipe line inspector and computer project manager as recommended. ? ?Patient will need follow-up at with her home reading recovery teacher/PCP in 1-2 weeks after discharge. Prefer to follow locally ? ?Diabetes Care Team Hospital Discharge Help Line: [phone] SIGNATURE: Columba Mathis APRN.[employer] PATIENT NAME: Kalyn Cain DATE: August 30, 2017 TIME: 7:35 AM PAGER/CONTACT #: Columba Mathis, MSN, RN, ORE SAMPLER-C Endocrinology Metabolic [place] Pager [phone] Inpatient Endo ORE SAMPLER from 0800 to 1800 After 1800 please page Endo business solution analyst at ext [phone] PROTIME Collected: 08/30/2017 Status: F Source: [place] 5:24 AM [facility] REPOSITORY TYPE CODE TESTS RESULT OUT OF RANGE REFERENCE UNITS LAB PSEC 9.7-13.0 sec PT Sec 12.0 LAB INR 0.9-1.3 PT INR 1.2 Result Comment: Vitamin K Antagonist (VKA) Therapeutic Range: INR 2 to 3 (Target INR of 2.5) Note: For patients treated with VKA drugs, such as warfarin, the [place] [employer] Physicians 2012 Guideline recommends a therapeutic INR range of 2 to 3 (target INR of 2.5). This recommendation includes high-risk patients with antiphospholipid syndrome with previous arterial or venous thromboembolism, current-generation mechanical or bioprosthetic aortic heart valve replacement. Note: Patients with mechanical aortic valve replacement and additional risk factors for thromboembolic events (atrial fibrillation, previous thromboembolism, LV dysfunction, hypercoagulable conditions) or an older generation mechanical AVR (i.e., ball in-Cage) or any mechanical MVR should have a INR therapeutic range of 2.5 to 3.5 (target INR of 3). Guamytt GH, et al. Chest 2012, 141:7S-47S Joce RA, et al. [facility] 2017, 70: 252-289 Performed By: #### PT, CBC, CMP #### [facility] [address] [address] CBC Collected: 08/30/2017 Status: F Source: [place] 5:24 AM [facility] REPOSITORY TYPE CODE TESTS RESULT OUT OF REFERENCE UNITS RANGE LAB WBC 3.70-11.00 k/uL WBC 4.38 LAB RBC 3.90-5.20 m/uL Low RBC 2.71 LAB HGB 11.5-15.5 g/dL Low Hemoglobin 8.7 LAB HCT 36.0-46.0 % Low Hematocrit 26.7 LAB MCV 80.0-100.0 fL MCV 98.5 LAB MCH 26.0-34.0 pG MCH 32.1 LAB MCHC 30.5-36.0 g/dL MCHC 32.6 LAB RDWCV 11.5-15.0 % RDW-CV 13.9 LAB PLTCT 150-400 k/uL Low Platelet Count 72 Result Comment: No clot detected. LAB MPV 9.0-12.7 fL MPV 11.6 LAB ABSNUC <0.01 k/uL Absolute nRBC <0.01 Performed By: #### PT, CBC, CMP #### [facility] [address] [place], [place] [address] COMP METABOLIC PANEL Collected: 08/30/2017 Status: F Source: [place] 5:24 AM [facility] REPOSITORY TYPE CODE TESTS RESULT OUT OF REFERENCE UNITS RANGE LAB TP 6.3-8.0 g/dL Protein, Total 7.0 LAB ALB 3.9-4.9 g/dL Low Albumin 3.2 LAB CA 8.5-10.2 mg/dL Calcium, Total 8.9 LAB TBIL 0.2-1.3 mg/dL Bilirubin, Total 0.8 LAB ALKP 32-117 U/L Alkaline Phosphatase 77 LAB AST 13-35 U/L AST 18 LAB GLU 74-99 mg/dL Glucose High 153 Result Comment: The [place] Diabetes Association (ADA) provides guidance for cutoff values for fasting glucose and random glucose. The ADA defines fasting as no caloric intake for at least 8 hours. Fas ting plasma glucose results between 100 to 125 mg/dL indicate increased risk for diabetes (prediabetes). Fasting plasma glucose results greater than or equal to 126 mg/dL meet the criteria for diagnosis of diabetes. In the absence of unequivocal hyperglycemia, results should be confirmed by repeat testing. In a patient with classic symptoms of hyperglycemia or hyperglycemic crisis, random plasma glucose results greater than or equal to 200 mg/dL meet the criteria for diagnosis of diabetes. Reference: Standards of Medical Care in Diabetes 2016, [place] Diabetes Association. Diabetes Care. 2016.39(Suppl 1). LAB BUN 7-21 mg/dL BUN High 55 LAB CRET 0.58-0.96 mg/dL Creatinine High 2.11 LAB NA 136-144 mmol/L Sodium 137 LAB K 3.7-5.1 mmol/L Potassium 4.0 LAB CL 97-105 mmol/L Chloride 98 LAB CO2 22-30 mmol/L CO2 29 LAB AGAP 9-18 mmol/L Anion Gap 10 LAB ALT 7-38 U/L ALT 10 LAB GFRAA eGFR- Amer. 28 LAB GFRNAA . eGFR-All Other Races 23 Result Comment: eGFR (Estimated GFR) Units of measure: mL/min/1.73 meters squared eGFR is derived from the reexpressed MDRD Study equation using the following parameters: serum creatinine, age, gender and race. The creatinine assay has been calibrated to be traceable to IDMS. An eGFR <60 mL/min/1.73m2 for >3 months is consistent with chronic kidney disease. Refer to KDOQI guidelines for clinical interpretation. In patients with unstable renal function, e.g. those with acute kidney injury, the eGFR may not accurately reflect actual GFR. Performed By: #### PT, CBC, CMP #### [facility] [address] [place] [address] PROGRESS Observed: 08/29/2017 Status: COMPLETED Source: [place] 8:25 AM [facility] REPOSITORY HNO ID: [id number] Author: Devorah Encinas (Management Retail Intern) Service: Cardiovascular Medicine Author Type: Nurse Practitioner Type: Progress Notes Filed: 08/29/2017 9:14 AM Note Text: [facility] CARDI[facility]ASCULAR [facility]ICINE PROGRESS NOTE (Template ID [id number]) Kalyn Cain [id number] PRIMARY SERVICE: Supervisor Pipeline/Pa, i Clinical HOSPITAL DAY: # 10 INTERVAL HISTORY Diuresed another 2L overnight. Will continue lasix. PHYSICAL EXAM BP 139/63 Pulse 73 Temp 36.5 ?C (97.7 ?F) (Oral) Resp 16 Ht 162.6 cm (5' 4) Wt 104.1 kg (229 lb 9.6 oz) SpO2 94% BMI 39.41 kg/m? Intake/Output Summary (Last 24 hours) at 08/29/17 0825 Last data filed at 08/29/17 0500 Gross per 24 hour Intake 260 ml Output 2275 ml Net -2015 ml General Appearance: No acute distress HEENT: Fair dentition Lungs: Decreased breath sounds Heart: Regular rate AND rhythm Abdomen: Soft, Round, Non-tender and Bowel sounds present Skin: Warm and Dry Musculoskeletal: No deformities Neurologic/Psychiatric: Oriented to time, place AND person MEDICATIONS Current hospital medications: furosemide 40 mg injection (LASIX) 40 mg INTRAVENOUS TID 9a/1p/5p insulin lispro 0-5 Units injection (rapid acting) (HumaLOG) 0-5 Units SUBCUTANEOUS 2 times per day insulin lispro injection (rapid acting) (HumaLOG) SUBCUTANEOUS w MEALS insulin lispro 8 Units injection (rapid acting) (HumaLOG) 8 Units SUBCUTANEOUS DAILY wDINNER insulin lispro 8 Units injection (rapid acting) (HumaLOG) 8 Units SUBCUTANEOUS DAILY wLUNCH insulin lispro 12 Units injection (rapid acting) (HumaLOG) 12 Units SUBCUTANEOUS DAILY WITH BREAKFAST insulin glargine 30 Units pen (long acting) (LANTUS SOLOSTAR, BASAGLAR) 30 Units SUBCUTANEOUS DAILY carvedilol 6.25 mg tab(s) (COREG) 6.25 mg ORAL BID w MEALS traMADol 50 mg tab(s) (ULTRAM) 50 mg ORAL q 6 H PRN 0.9% NaCl 3-5 mL 3-5 mL INTRAVENOUS q 12 H heparin 5,000 Units injection 5,000 Units SUBCUTANEOUS q 12 H gabapentin 300 mg cap(s) (NEURONTIN) 300 mg ORAL BID atorvastatin 40 mg tab(s) (LIPITOR) 40 mg ORAL DAILY aspirin, enteric coated 81 mg tab(s) (ASPIRIN, ENTERIC COATED) 81 mg ORAL DAILY AT 9 PM clopidogrel 75 mg tab(s) (PLAVIX) 75 mg ORAL DAILY pantoprazole DR 20 mg tab(s) (PROTONIX) 20 mg ORAL DAILY levothyroxine (SYNTHROID) tab(s) 137 mcg 137 mcg ORAL BEFORE BREAKFAST DAILY dextrose 40 % 15 g 15 g ORAL PRN glucagon 1 mg injection (GLUCAGEN) 1 mg INTRAMUSCULAR PRN dextrose 50% in water 25 mL syringe 12.5 g INTRAVENOUS PRN DATA Recent Labs 08/28/17 0515 08/27/17 0524 WBC 5.13 4.73 HB 9.2* 8.8* HCT 28.2* 26.7* PLT 74* 72* Recent Labs 08/28/17 0515 08/27/17 0524 NA 138 138 K 4.2 4.3 CO2 28 27 BUN 49* 47* CREAT 2.05* 2.01* GLUC 126* 120* ASSESSMENT AND PLAN Presentation/Indication for admission/procedure: Hypervolemia, unspecified hypervolemia type [E87.70] LVEF: 37 RVEF: low normal Cards: Polowski Cath: LM 100% ostial, LCx/RCA 100% ostial. 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 Pearson note) c/b portal HTN, EV (EGD 05/12 very small EV, on Coreg), [place] 2003 s/p CABGx3 (03/2004 SVG to Lcx, SVG to RCA and MCCONNELL graft to the LAD), ICM s/p CRTD placement (12/2010) (On ASA and Plavix), PAD s/p left lower extremity stenting (on ASA and Plavix) HFrEF (EF=40%), DMT2 (on insulin) and CKD stage 4 Procedure/OR performed (including complications): Echocardiogram Brief Hospital Course/Narrative: Mrs. Kalyn Cain was admitted through the Emergency Department with symptoms of shortness of breath, orthopnea, and lower extremity swelling over previous 2-3weeks. Given a recent CT scan done locally which showed swelling around liver AND spleen along with a concurrent history of HCV Cirrhosis, she was admitted to hepatology service. She was diuresed with IV lasix, however, underwent an echocardiogram which showed an ejection fraction of 40%, grade III diastolic dysfunction, low normal RV systolic function. Therefore, her fluid overload was felt to be related to heart dysfunction and she was transferred to cardiology service for further care. Issues to communicate: Lasix 40 IV TID Dry weight 230lb Problem Acute On Chronic Combined Systolic and Diastolic Chf (Congestive Heart Failure) (Hcc) History: Acute decompensated systolic HF Assessment: Moderate volume overload. Dry weight 230lb. Warm and wet Plan: Lasix 40mg IV TID, coreg. Resume altace, aldactone when able Coronary Artery Disease Involving [place] Coronary Artery of [place] Heart Without Angina Pectoris History: [place] 2003 s/p CABG x3 Assessment: Last cath 2016: LM 100% ostial, LCx/RCA 100% ostial. Patent MCCONNELL-LAD, SVG-RPDA, SVG-OM1 Plan: ASA, coreg, lipitor Cardiac Resynchronization Therapy Defibrillator (Pharmacist-D) in Place History: BSX N119 COGNIS 100-D 01/05/11 Assessment: BiV pacing 100% Plan: Device check done Pad (Peripheral Artery Disease) (Hcc) History: Hx claudication Assessment: s/p remote LE stenting Plan: ASA, plavix Ckd (Chronic Kidney Disease) Stage 4, Gfr 15-29 Ml/Min (Hcc) History: Baseline creat 2-2.2 Assessment: CKD stage 4, GFR 23 Plan: Monitor while diuresing Htn (Hypertension), Benign History: On coreg 12.5 bid, lasix 40 at home Assessment: Fairly well controlled Plan: Continue current meds. Monitor while diuresing. Re- titrate coreg Hyperlipidemia Ldl Goal <70 History: On lipitor 40 at home Assessment: LDL 44 Plan: Continue lipitor. Diabetes Mellitus Type 2 With Peripheral Artery Disease (Hcc) History: On Insulin Assessment: A1c 5.8 Plan: BG uncontrolled here. 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 Waqar Encinas, ENGINEERING PROGRAM ANALYST.[facility] Pager [phone] (please see below for after hours communication) 08/29/2017 8:25 AM For communication after 5 pm on weekdays and after 12 pm on weekends, please page the following: - Clinical Cardiology patients on all floors: page [phone] - Other Cardiology patients on J5 and J6: page [phone] - Other Cardiology patients on J7 and J8: page [phone] CONSULT PROG Observed: 08/29/2017 Status: COMPLETED Source: [place] 8:24 AM [facility] REPOSITORY HNO ID: [id number] Author: Columba Ulloa ([facility]) Service: Endocrinology Author Type: Nurse Practitioner Type: Consult Progress Note Filed: 08/29/2017 9:36 PM Note Text: DIABETES CARE TEAM NOTE SERVICE DATE: 08/29/2017 SERVICE TIME: 8:24 AM Subjective Summary of History from Prior Record: Consult Date: 08/24/2017 ? HPI: Ms. Kalyn Cain is a 67 year old female with a >30?year history of Diabetes Mellitus Type 2 hyperglycemia?who was admitted on 08/19/2017 for evaluation of SOB + orthopnea. Past medical history significant for CAD s/p CABG x 4 03/2004 cirrhosis d/t chronic hepatitis C, portal HTN, ? HF CKD stage 3. Patient ?does ?exercise. Last HbA1c was 5.8% on 08/23/2017 ( not accurate as patient have chronic macrocytic anemia). ?She has no?family history of diabetes. She is followed by Dr. Ana Gutierrez ( [employer] reading recovery teacher) at [facility]?for her diabetes. ? ? DIABETIC COMPLICATIONS: Nephropathy: CKD stage 3 Neuropathy: Polyneuropathy CAD ? Pre-Admission DM Regimen: Preadmission oral agents: None Preadmission insulin regimen: Tresiba 60units ?Q am Novolog Sliding scale ?With meals starts with 10 units when BG before po intake is 150 mg/dL ? ? Self Monitoring Blood Glucose: Type of Monitor: Accucheck ? Frequency of Monitorin?times a day and PRN BG Values: 100-200 Hypoglycemia: Yes, Frequency: none for ?A year but had BG in 11 and in 1500 and has been hospitalized for lows in past x3 and once for high 1500 which related that to one of meds that she was on Symptoms: Shakiness and Sweating Feel symptoms when BS is 100?mg/dL INTERVAL HPI: No acute events overnight PERTINENT ROS: Constitutional:Feels well, no complaints Appetite:Intact GI:No nausea, no vomitting, no diarrhea, no constipation Objective PHYSICAL EXAM: BP 139/63 Pulse 73 Temp 36.5 ?C (97.7 ?F) (Oral) Resp 16 Ht 162.6 cm (5' 4) Wt 104.1 kg (229 lb 9.6 oz) SpO2 94% BMI 39.41 kg/m? General Appearance:A+O x 3 and In no apparent distress Affect:Pleasant and cooperative Eyes:Sclerae non-icteric Abdomen:Soft, non-tender and Bowel sounds x 4 Resp: Unlabored on RA, no signs of distress Edema:Lower extremity 1+ Laboratory Results: Glucose (mg/dL) Date Value 08/28/2017 126 Potassium (mmol/L) Date Value 08/28/2017 4.2 Sodium (mmol/L) Date Value 08/28/2017 138 Chloride (mmol/L) Date Value 08/28/2017 98 CO2 (mmol/L) Date Value 08/28/2017 28 Creatinine (mg/dL) Date Value 08/28/2017 2.05 BUN (mg/dL) Date Value 08/28/2017 49 Anion Gap (mmol/L) Date Value 08/28/2017 12 Calcium (mg/dL) Date Value 08/28/2017 9.1 ALT Date Value Ref Range Status 08/28/2017 8 7 - 38 U/L Final AST Date Value Ref Range Status 08/28/2017 17 13 - 35 U/L Final Hemoglobin (g/dL) Date Value 08/28/2017 9.2 Hematocrit (%) Date Value 08/28/2017 28.2 WBC (k/uL) Date Value 08/28/2017 5.13 Platelet Count (k/uL) Date Value 08/28/2017 74 Hemoglobin A1C (%) Date Value 08/23/2017 5.8 LV Ejection Fraction (%) Date Value 08/24/2017 37 Diet: ?Carb Control: 3--5 CARBS/MEAL (<200 MG CHOL / LOW SAT FAT) electrolyte 2 GM?sodium ? Supplements: N/A ? Other Pertinent Medications: Steroids none ? Diabetes Management in Hospital Hospital ?BG values or ranges: ? Date AM LUNCH DINNER HS 3AM 08/23/17 148 330(H120 103 258 Lantus 20 u 251 08/24/17 263(H9) 289(H9) 228(H8+4) 256(H6) Lantus 15? 90-?105 08/25/17? ?162(H6+2) Lantus 15 u 273(H6+6)? 219(H8+4)? 187(H2)? ?81 08/26/17? ?260(H8+6) Lantus 20 u ?357(H8+10) lantus 10 193(H8+2) 139? ?128 08/27/17 165(H12+H2) Lantus 30u 337(H8+H8) 146(H8) ?85 ?160(H1) ?08/28 203(H12) Lantus 30? 182(H8+H2) ?213(H8+H4) ?303(H4) ?215(H2) ?08/29 ?326(h12+H8) Lantus 36u ?375(H12+H10) 76? ?192(H2) ? ? ? Impression/Recommendations:? Patient with uncontrolled Diabetes Mellitus Type 2 hyperglycemia?, who was admitted on 08/19/2017 for evaluation of SOB + orthopnea?whom we have been consulted for glycemic control. SOB + orthopnea due to volume overload secondary to HF. Fasting glucose elevated, did have snack late evening. Overall glucose patterns elevated. Basal and bolus doses increased for today as well as HS and 0200 SS.? 9:35 PM Tight glucose at dinner time, would suspect patient did not eat enough of lunch tray. Will follow trends. ? ? RECOMMENDATIONS: ? ?Basal Insulin: Lantus 36?units QAM ? ??Prandial Insulin: Humalog 12-12-12 units AC TID ? ?Supplemental Sliding Scale: Humalog Program #2 AC/ HS and 0300 ? ?Accuchecks: AC/HS and 3am ? ?Recommend As per Unit Dietitian ? ?Consult CDE regarding: DM Education including none ? 1? DM DISCHARGE PLAN: ? ?MDI insulin of Tresiba and Novolog ?Doses TBD ? ?Check blood sugars Four times a Day? ? ?Diet: As per Unit Dietitian ? ?Exercise as prescribed by cardiology ? ?Follow up with pipe line inspector and computer project manager as recommended. ? ?Patient will need follow-up at with her home reading recovery teacher/PCP in 1-2 weeks after discharge. Prefer to follow locally ? ?Diabetes Care Team Hospital Discharge Help Line: [phone] SIGNATURE: Columba Ulloa APRN.[employer] PATIENT NAME: Kalyn Cain DATE: August 29, 2017 TIME: 8:24 AM PAGER/CONTACT #: [phone] PROTIME Collected: 08/29/2017 Status: F Source: [place] 5:35 AM [facility] REPOSITORY TYPE CODE TESTS RESULT OUT OF RANGE REFERENCE UNITS LAB PSEC 9.7-13.0 sec PT Sec 11.8 LAB INR 0.9-1.3 PT INR 1.1 Result Comment: Vitamin K Antagonist (VKA) Therapeutic Range: INR 2 to 3 (Target INR of 2.5) Note: For patients treated with VKA drugs, such as warfarin, the [place] College [employer] Chest Physicians 2012 Guideline recommends a therapeutic INR range of 2 to 3 (target INR of 2.5). This recommendation includes high-risk patients with antiphospholipid syndrome with previous arterial or venous thromboembolism, current-generation mechanical or bioprosthetic aortic heart valve replacement. Note: Patients with mechanical aortic valve replacement and additional risk factors for thromboembolic events (atrial fibrillation, previous thromboembolism, LV dysfunction, hypercoagulable conditions) or an older generation mechanical AVR (i.e., ball in-Cage) or any mechanical MVR should have a INR therapeutic range of 2.5 to 3.5 (target INR of 3). Lana GH, et al. Chest 2012, 141:7S-47S Joce RA, et al. [facility] 2017, 70: 252-289 Performed By: #### PT, CBC, CMP #### [facility] [address], [place] [address] CBC Collected: 08/29/2017 Status: F Source: [place] 5:35 AM [facility] REPOSITORY TYPE CODE TESTS RESULT OUT OF REFERENCE UNITS RANGE LAB WBC 3.70-11.00 k/uL WBC 5.15 LAB RBC 3.90-5.20 m/uL Low RBC 2.81 LAB HGB 11.5-15.5 g/dL Low Hemoglobin 9.1 LAB HCT 36.0-46.0 % Low Hematocrit 27.9 LAB MCV 80.0-100.0 fL MCV 99.3 LAB MCH 26.0-34.0 pG MCH 32.4 LAB MCHC 30.5-36.0 g/dL MCHC 32.6 LAB RDWCV 11.5-15.0 % RDW-CV 13.8 LAB PLTCT 150-400 k/uL Low Platelet Count 72 Result Comment: No clot detected. LAB MPV 9.0-12.7 fL MPV 12.4 LAB ABSNUC <0.01 k/uL Absolute nRBC <0.01 Performed By: #### PT, CBC, CMP #### [facility] [address] [place], [place] [address] COMP METABOLIC PANEL Collected: 08/29/2017 Status: F Source: [place] 5:35 AM [facility] REPOSITORY TYPE CODE TESTS RESULT OUT OF REFERENCE UNITS RANGE LAB TP 6.3-8.0 g/dL Protein, Total 7.4 LAB ALB 3.9-4.9 g/dL Low Albumin 3.4 LAB CA 8.5-10.2 mg/dL Calcium, Total 9.1 LAB TBIL 0.2-1.3 mg/dL Bilirubin, Total 0.8 LAB ALKP 32-117 U/L Alkaline Phosphatase 88 LAB AST 13-35 U/L AST 16 LAB GLU 74-99 mg/dL Glucose High 244 Result Comment: The [place] Diabetes Association (ADA) provides guidance for cutoff values for fasting glucose and random glucose. The ADA defines fasting as no caloric intake for at least 8 hours. Fas ting plasma glucose results between 100 to 125 mg/dL indicate increased risk for diabetes (prediabetes). Fasting plasma glucose results greater than or equal to 126 mg/dL meet the criteria for diagnosis of diabetes. In the absence of unequivocal hyperglycemia, results should be confirmed by repeat testing. In a patient with classic symptoms of hyperglycemia or hyperglycemic crisis, random plasma glucose results greater than or equal to 200 mg/dL meet the criteria for diagnosis of diabetes. Reference: Standards of Medical Care in Diabetes 2016, [place] Diabetes Association. Diabetes Care. 2016.39(Suppl 1). LAB BUN 7-21 mg/dL BUN High 52 LAB CRET 0.58-0.96 mg/dL Creatinine High 2.02 LAB NA 136-144 mmol/L Sodium 138 LAB K 3.7-5.1 mmol/L Potassium 4.2 LAB CL 97-105 mmol/L Low Chloride 96 LAB CO2 22-30 mmol/L CO2 26 LAB AGAP 9-18 mmol/L Anion Gap 16 LAB ALT 7-38 U/L ALT 9 LAB GFRAA eGFR- Amer. 30 LAB GFRNAA . eGFR-All Other Races 25 Result Comment: eGFR (Estimated GFR) Units of measure: mL/min/1.73 meters squared eGFR is derived from the reexpressed MDRD Study equation using the following parameters: serum creatinine, age, gender and race. The creatinine assay has been calibrated to be traceable to IDMS. An eGFR <60 mL/min/1.73m2 for >3 months is consistent with chronic kidney disease. Refer to KDOQI guidelines for clinical interpretation. In patients with unstable renal function, e.g. those with acute kidney injury, the eGFR may not accurately reflect actual GFR. Performed By: #### PT, CBC, CMP #### [facility] [address] [place] [id number] NURSING PROG Observed: 08/28/2017 Status: COMPLETED Source: [place] 1:40 PM [facility] REPOSITORY HNO ID: [id number] Author: Chana Edgar (Rn), RN Service: (none) Author Type: Registered Nurse Type: Nursing Progress Note Filed: 08/28/2017 1:44 PM Note Text: Nursing Progress Note Patient Name: Kalyn Cain Patient Location: [address]8--15 Pt admitted to [facility]. Skin assessment performed with ROMÁN Castillo. Skin intact, old healed pressure injury noted per the pt. Pt educated on turning frequently due to her being at higher risk of developing pressure injury . This note was completed by: Chana Edgar, RN PT ED Observed: 08/28/2017 Status: COMPLETED Source: [place] 1:21 PM [facility] REPOSITORY HNO ID: [id number] Author: Mateo Ccf Service: (none) Author Type: Physician Type: Patient Education Filed: 08/28/2017 1:21 PM Note Text: [facility] Patient Education Report --------- Name: KALYN CAIN Date: 08/28/2017 Time: 1:21 PM Patient Ordered Video: Inpatient Falls from [id number] via phone number [phone] at 1:21 PM PROGRESS Observed: 08/28/2017 Status: COMPLETED Source: [place] 9:32 AM [facility] REPOSITORY HNO ID: [id number] Author: Devorah Encinas ([facility]) Service: Cardiovascular Medicine Author Type: Nurse Practitioner Type: Progress Notes Filed: 08/28/2017 2:49 PM Note Text: [facility] CARD[facility]ULAR [facility]ICINE PROGRESS NOTE (Template ID [id number]) Kalyn Cain [id number] PRIMARY SERVICE: Supervisor Pipeline/Pa, i Clinical HOSPITAL DAY: # 9 INTERVAL HISTORY No acute events overnight. Diuresed -1850 overnight- will continue lasix 40mg TID today. PHYSICAL EXAM BP 123/59 Pulse 71 Temp 36.7 ?C (98.1 ?F) (Oral) Resp 20 Ht 162.6 cm (5' 4) Wt 102 kg (224 lb 14.4 oz) SpO2 97% BMI 38.60 kg/m? Intake/Output Summary (Last 24 hours) at 08/28/17 1448 Last data filed at 08/28/17 1318 Gross per 24 hour Intake 220 ml Output 2475 ml Net -2255 ml General Appearance: No acute distress HEENT: Fair dentition Lungs: Decreased breath sounds Heart: Regular rate AND rhythm Abdomen: Soft, Round, Non-tender and Bowel sounds present Skin: Warm and Dry Musculoskeletal: No deformities Neurologic/Psychiatric: Oriented to time, place AND person MEDICATIONS Current hospital medications: furosemide 40 mg injection (LASIX) 40 mg INTRAVENOUS TID 9a/1p/5p insulin lispro 0-5 Units injection (rapid acting) (HumaLOG) 0-5 Units SUBCUTANEOUS 2 times per day insulin lispro injection (rapid acting) (HumaLOG) SUBCUTANEOUS w MEALS insulin lispro 8 Units injection (rapid acting) (HumaLOG) 8 Units SUBCUTANEOUS DAILY wDINNER insulin lispro 8 Units injection (rapid acting) (HumaLOG) 8 Units SUBCUTANEOUS DAILY wLUNCH insulin lispro 12 Units injection (rapid acting) (HumaLOG) 12 Units SUBCUTANEOUS DAILY WITH BREAKFAST insulin glargine 30 Units pen (long acting) (LANTUS SOLOSTAR, BASAGLAR) 30 Units SUBCUTANEOUS DAILY carvedilol 6.25 mg tab(s) (COREG) 6.25 mg ORAL BID w MEALS traMADol 50 mg tab(s) (ULTRAM) 50 mg ORAL q 6 H PRN 0.9% NaCl 3-5 mL 3-5 mL INTRAVENOUS q 12 H heparin 5,000 Units injection 5,000 Units SUBCUTANEOUS q 12 H gabapentin 300 mg cap(s) (NEURONTIN) 300 mg ORAL BID atorvastatin 40 mg tab(s) (LIPITOR) 40 mg ORAL DAILY aspirin, enteric coated 81 mg tab(s) (ASPIRIN, ENTERIC COATED) 81 mg ORAL DAILY AT 9 PM clopidogrel 75 mg tab(s) (PLAVIX) 75 mg ORAL DAILY pantoprazole DR 20 mg tab(s) (PROTONIX) 20 mg ORAL DAILY levothyroxine (SYNTHROID) tab(s) 137 mcg 137 mcg ORAL BEFORE BREAKFAST DAILY dextrose 40 % 15 g 15 g ORAL PRN glucagon 1 mg injection (GLUCAGEN) 1 mg INTRAMUSCULAR PRN dextrose 50% in water 25 mL syringe 12.5 g INTRAVENOUS PRN DATA Recent Labs 08/28/17 0515 08/27/17 0524 08/26/17 0645 WBC 5.13 4.73 4.54 HB 9.2* 8.8* 8.8* HCT 28.2* 26.7* 26.8* PLT 74* 72* 73* Recent Labs 08/28/17 0515 08/27/17 0524 08/26/17 0645 NA 138 138 137 K 4.2 4.3 4.9 CO2 28 27 25 BUN 49* 47* 45* CREAT 2.05* 2.01* 2.14* GLUC 126* 120* 208* ASSESSMENT AND PLAN Presentation/Indication for admission/procedure: Hypervolemia, unspecified hypervolemia type [E87.70] LVEF: 37 RVEF: low normal Cards: Madai Cath: LM 100% ostial, LCx/RCA 100% ostial. 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 Pearson note) c/b portal HTN, EV (EGD 05/12 very small EV, on Coreg), [place] 2003 s/p CABGx3 (03/2004 SVG to Lcx, SVG to RCA and MCCONNELL graft to the LAD), ICM s/p CRTD placement (12/2010) (On ASA and Plavix), PAD s/p left lower extremity stenting (on ASA and Plavix) HFrEF (EF=40%), DMT2 (on insulin) and CKD stage 4 Procedure/OR performed (including complications): Echocardiogram Brief Hospital Course/Narrative: Mrs. Kalyn Cain was admitted through the Emergency Department with symptoms of shortness of breath, orthopnea, and lower extremity swelling over previous 2-3weeks. Given a recent CT scan done locally which showed swelling around liver AND spleen along with a concurrent history of HCV Cirrhosis, she was admitted to hepatology service. She was diuresed with IV lasix, however, underwent an echocardiogram which showed an ejection fraction of 40%, grade III diastolic dysfunction, low normal RV systolic function. Therefore, her fluid overload was felt to be related to heart dysfunction and she was transferred to cardiology service for further care. Issues to communicate: Lasix 40 IV TID Dry weight 230lb Problem Acute On Chronic Combined Systolic and Diastolic Chf (Congestive Heart Failure) (Hcc) History: Acute decompensated systolic HF Assessment: Moderate volume overload. Dry weight 230lb. Warm and wet Plan: Lasix 40mg IV TID, coreg. Resume altace, aldactone when able Coronary Artery Disease Involving [place] Coronary Artery of [place] Heart Without Angina Pectoris History: [place] 2003 s/p CABG x3 Assessment: Last cath 2016: LM 100% ostial, LCx/RCA 100% ostial. Patent MCCONNELL-LAD, SVG-RPDA, SVG-OM1 Plan: ASA, coreg, lipitor Cardiac Resynchronization Therapy Defibrillator (Pharmacist-D) in Place History: BSX N119 COGNIS 100-D 01/05/11 Assessment: BiV pacing 100% Plan: Device check done Pad (Peripheral Artery Disease) ([facility]) History: Hx claudication Assessment: s/p remote LE stenting Plan: ASA, plavix Ckd (Chronic Kidney Disease) Stage 4, Gfr 15-29 Ml/Min ([facility]) History: Baseline creat 2-2.2 Assessment: CKD stage 4, GFR 23 Plan: Monitor while diuresing Htn (Hypertension), Benign History: On coreg 12.5 bid, lasix 40 at home Assessment: Fairly well controlled Plan: Continue current meds. Monitor while diuresing. Re- titrate coreg Hyperlipidemia Ldl Goal <70 History: On lipitor 40 at home Assessment: LDL 44 Plan: Continue lipitor. Diabetes Mellitus Type 2 With Peripheral Artery Disease (Hcc) History: On Insulin Assessment: A1c 5.8 Plan: BG uncontrolled here. 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 Waqar Encinas, MAICOL.[employer] Pager [phone] (please see below for after hours communication) 08/28/2017 2:48 PM For communication after 5 pm on weekdays and after 12 pm on weekends, please page the following: - Clinical Cardiology patients on all floors: page [phone] - Other Cardiology patients on J5 and J6: page [phone] - Other Cardiology patients on J7 and J8: page [phone] CONSULT PROG Observed: 08/28/2017 Status: COMPLETED Source: [place] 9:02 AM [facility] REPOSITORY HNO ID: [id number] Author: Columba Ulloa (Management Retail Intern) Service: Endocrinology Author Type: Nurse Practitioner Type: Consult Progress Note Filed: 08/28/2017 1:20 PM Note Text: DIABETES CARE TEAM NOTE SERVICE DATE: 08/28/2017 SERVICE TIME: 9:02 AM Subjective Summary of History from Prior Record: Consult Date: 08/24/2017 ? HPI: Ms. Kalyn Cain is a 67 year old female with a >30?year history of Diabetes Mellitus Type 2 hyperglycemia?who was admitted on 08/19/2017 for evaluation of SOB + orthopnea. Past medical history significant for CAD s/p CABG x 4 03/2004 cirrhosis d/t chronic hepatitis C, portal HTN, ? HF CKD stage 3. Patient ?does ?exercise. Last HbA1c was 5.8% on 08/23/2017 ( not accurate as patient have chronic macrocytic anemia). ?She has no?family history of diabetes. She is followed by Dr. Ana Gutierrez ( [employer] reading recovery teacher) at [facility]?for her diabetes. ? ? DIABETIC COMPLICATIONS: Nephropathy: CKD stage 3 Neuropathy: Polyneuropathy CAD ? Pre-Admission DM Regimen: Preadmission oral agents: None Preadmission insulin regimen: Tresiba 60units ?Q am Novolog Sliding scale ?With meals starts with 10 units when BG before po intake is 150 mg/dL ? ? Self Monitoring Blood Glucose: Type of Monitor: Accucheck ? Frequency of Monitorin?times a day and PRN BG Values: 100-200 Hypoglycemia: Yes, Frequency: none for ?A year but had BG in 11 and in 1500 and has been hospitalized for lows in past x3 and once for high 1500 which related that to one of meds that she was on Symptoms: Shakiness and Sweating Feel symptoms when BS is 100?mg/dL INTERVAL HPI: No acute events overnight. Continuing to diurese PERTINENT ROS: Constitutional:Sleeping, did not wake Appetite:Intact, per documentation GI:No nausea, no vomitting, no diarrhea, no constipation Objective PHYSICAL EXAM: BP 127/56 Pulse 70 Temp 36.6 ?C (97.8 ?F) (Oral) Resp 18 Ht 162.6 cm (5' 4) Wt 102 kg (224 lb 14.4 oz) SpO2 95% BMI 38.60 kg/m? General Appearance:Sleeping soundly Eyes:Sclerae non-icteric, PERRLA Abdomen:Soft and non-distended Resp: Unlabored at rest Edema:Lower extremity 2+ Laboratory Results: Glucose (mg/dL) Date Value 08/28/2017 126 Potassium (mmol/L) Date Value 08/28/2017 4.2 Sodium (mmol/L) Date Value 08/28/2017 138 Chloride (mmol/L) Date Value 08/28/2017 98 CO2 (mmol/L) Date Value 08/28/2017 28 Creatinine (mg/dL) Date Value 08/28/2017 2.05 BUN (mg/dL) Date Value 08/28/2017 49 Anion Gap (mmol/L) Date Value 08/28/2017 12 Calcium (mg/dL) Date Value 08/28/2017 9.1 ALT Date Value Ref Range Status 08/28/2017 8 7 - 38 U/L Final AST Date Value Ref Range Status 08/28/2017 17 13 - 35 U/L Final Hemoglobin (g/dL) Date Value 08/28/2017 9.2 Hematocrit (%) Date Value 08/28/2017 28.2 WBC (k/uL) Date Value 08/28/2017 5.13 Platelet Count (k/uL) Date Value 08/28/2017 74 Hemoglobin A1C (%) Date Value 08/23/2017 5.8 LV Ejection Fraction (%) Date Value 08/24/2017 37 Diet: ?Carb Control: 3--5 CARBS/MEAL (<200 MG CHOL / LOW SAT FAT) electrolyte 2 GM?sodium ? Supplements: N/A ? Other Pertinent Medications: Steroids none ? Diabetes Management in Hospital Hospital ?BG values or ranges: ? Date AM LUNCH DINNER HS 3AM 08/23/2017 148 330(H120 103 258 Lantus 20 u 251 08/24/2017 263(H9) 289(H9) 228(H8+4) 256(H6) Lantus 15? 90-?105 08/25/2017? ?162(H6+2) Lantus 15 u 273(H6+6)? 219(H8+4)? 187(H2)? ?81 08/26/2017? ?260(H8+6) Lantus 20 u ?357(H8+10) lantus 10 193(H8+2) 139? ?128 08/27/17 165(H12+H2) Lantus 30u 337(H8+H8) 146(H8) ?85 ?160(H1) ?08/28 203(H12) Lantus 30? 182(H8+H2) ? Impression/Recommendations:? Patient with uncontrolled Diabetes Mellitus Type 2 hyperglycemia?, who was admitted on 08/19/2017 for evaluation of SOB + orthopnea?whom we have been consulted for glycemic control. SOB + orthopnea due to volume overload secondary to HF. Fasting elevated this am, will discuss with patient to determine if she ate prior to accucheck, will likely increase basal for tomorrow. Discussed refraining from consuming juice today to improve glucose levels. Will trend and adjust insulin accordingly. ? RECOMMENDATIONS: ? ?Basal Insulin: Lantus 30?units QAM ? ??Prandial Insulin: Humalog 12-8-8 units AC TID ? ?Supplemental Sliding Scale: Humalog Program #2 AC #1 HS and 0200 ? ?Accuchecks: AC/HS and 2am ? ?Recommend As per Unit Dietitian ? ?Consult CDE regarding: DM Education including none ? 1? DM DISCHARGE PLAN: ? ?MDI insulin of Tresiba and Novolog ?Doses TBD ? ?Check blood sugars Four times a Day? ? ?Diet: As per Unit Dietitian ? ?Exercise as prescribed by cardiology ? ?Follow up with pipe line inspector and computer project manager as recommended. ? ?Patient will need follow-up at with her home reading recovery teacher/PCP in 1-2 weeks after discharge. Prefer to follow locally ? ?Diabetes Care Team Hospital Discharge Help Line: [phone] SIGNATURE: Columba Ulloa APRN.[employer] PATIENT NAME: Kalyn Cain DATE: August 28, 2017 TIME: 9:02 AM PAGER/CONTACT #: [phone] PROTIME Collected: 08/28/2017 Status: F Source: [place] 5:15 AM [facility] REPOSITORY TYPE CODE TESTS RESULT OUT OF RANGE REFERENCE UNITS LAB PSEC 9.7-13.0 sec PT Sec 11.9 LAB INR 0.9-1.3 PT INR 1.2 Result Comment: Vitamin K Antagonist (VKA) Therapeutic Range: INR 2 to 3 (Target INR of 2.5) Note: For patients treated with VKA drugs, such as warfarin, the [place] [employer] Chest Physicians 2012 Guideline recommends a therapeutic INR range of 2 to 3 (target INR of 2.5). This recommendation includes high-risk patients with antiphospholipid syndrome with previous arterial or venous thromboembolism, current-generation mechanical or bioprosthetic aortic heart valve replacement. Note: Patients with mechanical aortic valve replacement and additional risk factors for thromboembolic events (atrial fibrillation, previous thromboembolism, LV dysfunction, hypercoagulable conditions) or an older generation mechanical AVR (i.e., ball in-Cage) or any mechanical MVR should have a INR therapeutic range of 2.5 to 3.5 (target INR of 3). Lana GH, et al. Chest 2012, 141:7S-47S Joce SMITH et al. [facility] 2017, 70: 252-289 Performed By: #### PT, CBC, CMP #### [facility] [employer] [address] [place], [place] [address] CBC Collected: 08/28/2017 Status: F Source: [place] 5:15 AM [facility] REPOSITORY TYPE CODE TESTS RESULT OUT OF REFERENCE UNITS RANGE LAB WBC 3.70-11.00 k/uL WBC 5.13 LAB RBC 3.90-5.20 m/uL Low RBC 2.87 LAB HGB 11.5-15.5 g/dL Low Hemoglobin 9.2 LAB HCT 36.0-46.0 % Low Hematocrit 28.2 LAB MCV 80.0-100.0 fL MCV 98.3 LAB MCH 26.0-34.0 pG MCH 32.1 LAB MCHC 30.5-36.0 g/dL MCHC 32.6 LAB RDWCV 11.5-15.0 % RDW-CV 14.0 LAB PLTCT 150-400 k/uL Low Platelet Count 74 Result Comment: No clot detected. LAB MPV 9.0-12.7 fL MPV 11.7 LAB ABSNUC <0.01 k/uL Absolute nRBC <0.01 Performed By: #### PT, CBC, CMP #### [facility] [employer] [address] [place], [place] [address] COMP METABOLIC PANEL Collected: 08/28/2017 Status: F Source: [place] 5:15 AM [facility] REPOSITORY TYPE CODE TESTS RESULT OUT OF REFERENCE UNITS RANGE LAB TP 6.3-8.0 g/dL Protein, Total 7.1 LAB ALB 3.9-4.9 g/dL Low Albumin 3.3 LAB CA 8.5-10.2 mg/dL Calcium, Total 9.1 LAB TBIL 0.2-1.3 mg/dL Bilirubin, Total 0.7 LAB ALKP 32-117 U/L Alkaline Phosphatase 83 LAB AST 13-35 U/L AST 17 LAB GLU 74-99 mg/dL Glucose High 126 Result Comment: The [place] Diabetes Association (ADA) provides guidance for cutoff values for fasting glucose and random glucose. The ADA defines fasting as no caloric intake for at least 8 hours. Fas ting plasma glucose results between 100 to 125 mg/dL indicate increased risk for diabetes (prediabetes). Fasting plasma glucose results greater than or equal to 126 mg/dL meet the criteria for diagnosis of diabetes. In the absence of unequivocal hyperglycemia, results should be confirmed by repeat testing. In a patient with classic symptoms of hyperglycemia or hyperglycemic crisis, random plasma glucose results greater than or equal to 200 mg/dL meet the criteria for diagnosis of diabetes. Reference: Standards of Medical Care in Diabetes 2016, [place] Diabetes Association. Diabetes Care. 2016.39(Suppl 1). LAB BUN 7-21 mg/dL BUN High 49 LAB CRET 0.58-0.96 mg/dL Creatinine High 2.05 LAB NA 136-144 mmol/L Sodium 138 LAB K 3.7-5.1 mmol/L Potassium 4.2 LAB CL 97-105 mmol/L Chloride 98 LAB CO2 22-30 mmol/L CO2 28 LAB AGAP 9-18 mmol/L Anion Gap 12 LAB ALT 7-38 U/L ALT 8 LAB GFRAA eGFR- Amer. 29 LAB GFRNAA . eGFR-All Other Races 24 Result Comment: eGFR (Estimated GFR) Units of measure: mL/min/1.73 meters squared eGFR is derived from the reexpressed MDRD Study equation using the following parameters: serum creatinine, age, gender and race. The creatinine assay has been calibrated to be traceable to IDMS. An eGFR <60 mL/min/1.73m2 for >3 months is consistent with chronic kidney disease. Refer to KDOQI guidelines for clinical interpretation. In patients with unstable renal function, e.g. those with acute kidney injury, the eGFR may not accurately reflect actual GFR. Performed By: #### PT, CBC, CMP #### [facility] [address] [place], [place] [address] THERAPY NT Observed: 08/27/2017 Status: COMPLETED Source: [place] 9:21 AM [facility] REPOSITORY HNO ID: [id number] Author: Lela Quick (Ot) Service: Occupational Therapy Author Type: Occupational Therapist Type: Therapy (PT/OT/Speech/Resp) Filed: 08/27/2017 9:30 AM Note Text: Occupational Therapy Evaluation SERVICE DATE: 08/27/2017 SERVICE TIME: 824 to 904 ROOM: [place] [address] Recommended Discharge Disposition: Home (PRN assist of ) Anticipated Discharge Needs: Physical Assist at Home Physical Assist at Home for: Cleaning;Laundry;Meals OT Recommendations to Nursing: To Bathroom for ADL?s /and or Toileting OT 6 Clicks Score: 21 ASSESSMENT: Patient presents with education deficits after admission for HF exacerbation. Pt SBA with ADLs except for LE dressing. Pt would benefit from one more OT session to address medication management strategies, and energy conservation. Recommend home with PRN assist. Requires skilled OT for energy conservation, medication management. Patient Disposition at Start of Session: OOB in Chair Patient Disposition at End of Session: OOB in Chair Tolerated Full Session Occupational Therapy Problem List: Education Deficit;Impaired Self Care;Decreased Activity Tolerance Patient /Caregiver Goals: Go Home Goals for Plan of Care: Lower Body Bathing with: Modified Independent Lower Body Dressing with: Modified Independent Toilet Hygiene with: Modified Independent Demonstrate Competence With Education with: Modified Independent Medication Management with Strategies: Modified Independent Progress Toward Goals: Progressing as expected Rehab Potential: Good PLAN: Treatment Frequency (times per week): 1 (+ 1 PRN visit) Current admission Treatment Interventions: Education;Self Care / Home Management;Energy Conservation Training Plan of Care developed with: Patient TREATMENT INTERVENTIONS: Therapy Diagnosis: Decreased activities of daily living (ADL) Interventions Provided: Evaluation;Self [facility] Management ([id number]) $ Evaluation-Low ([id number]) Billed Units: 1 unit Self [facility] Management ([id number]) Treatment Minutes: 25 2 units Skilled Intervention(s): . Pt educated on role of OT in acute hospital. Provided recommendations for medication management strategies, medication reference sheet, large print labels, etc. Reviewed energy conservation handout with application for functional tasks at Home. Total Timed Code Treatment Minutes: 25 Total Treatment Time (minutes): 40 FUNCTIONAL G CODE: OT 6 Clicks Score: 21 (08/27/17824) Self Care Current Status (G8987): CJ (08/27/17824) Self Care Goal Status (G8988): CI (08/27/17824) Based on clinical assessment and the score on the 6 Clicks Functional Assessment Tool, the G code and corresponding severity modifiers are documented above. SUBJECTIVE: Current Hospital Course: Chart reviewed; . Mrs. Kalyn Cain was admitted through the Emergency Department with symptoms of shortness of breath, orthopnea, and lower extremity swelling over previous 2-3weeks. Therefore, her fluid overload was felt to be related to heart dysfunction and she was transferred to cardiology service for further care. Reason for Occupational Therapy Consult: ADLs Relevant Past Medical History: DM, HF Patient Report: I have been so swollen. I haven't felt like eating much Home Environment Patient Lives With: Significant Other Assistance Available: 24 Hour Entry To Home: Stairs;With Rail Number Of Stairs Into Home: 5 Number Of Stairs To Bed/Bath: 0 Tub/Shower Type: tub shower Equipment Owned: Standard Walker Prior Functional Level: Required Assistance Assistance Required With: Cleaning;Laundry Prior Functional Level Comments: husbands assists with ADLs, due to shortness of breath OBJECTIVE: Communication Deficits: (intact) Orientation Deficits: (intact) Responsiveness: Alert Follows Commands: 3-step Commands Memory Deficits: Short Term Psychosocial Deficit: appears grossly intact CURRENT FUNCTIONAL STATUS: Current Activities of Daily Living Assist Level Feeding Modified Independent Grooming Modified Independent Bathing Upper Body Supervision Bathing Lower Body Minimal Assistance Dressing Upper Body Supervision Dressing Lower Body Minimal Assistance Toileting Minimal Assistance Instrumental Activities of Daily Living Assist Level Meal/Beverage Prep Light Cleaning Laundry Medication Management with Strategies Functional Mobility Assist Level Rolling Supine to Sit Sit to Supine Scooting Sit to Stand Stand By Assistance Stand to Sit Stand By Assistance Bed to Chair Stand By Assistance Toilet/Commode Stand By Assistance Functional Mobility Stand By Assistance Please see discipline specific clinical documentation flowsheet for complete details for this therapy evaluation/treatment. SIGNATURE: Lela Quick OTR/L PATIENT NAME: Kalyn Cain DATE: August 27, 2017 TIME: 9:21 AM PAGER: [phone] PROGRESS Observed: 08/27/2017 Status: COMPLETED Source: [place] 9:04 AM [facility] REPOSITORY HNO ID: [id number] Author: Devorah Encinas ([facility]) Service: Cardiovascular Medicine Author Type: Nurse Practitioner Type: Progress Notes Filed: 08/27/2017 12:20 PM Note Text: [facility] CARDIOVASCULAR MEDICINE PROGRESS NOTE (Template ID [id number]) Kalyn Cain [id number] PRIMARY SERVICE: Supervisor P[employer]/Pa, [facility]vi Clinical HOSPITAL DAY: # 8 INTERVAL HISTORY No acute events overnight. Diuresed ~2L yesterday, will continue 40mg BID of IV lasix. PHYSICAL EXAM BP 132/100 Pulse 70 Temp 36.4 ?C (97.5 ?F) (Oral) Resp 20 Ht 162.6 cm (5' 4) Wt 105.4 kg (232 lb 4.8 oz) SpO2 96% BMI 39.87 kg/m? Intake/Output Summary (Last 24 hours) at 08/27/17 1217 Last data filed at 08/27/17 0935 Gross per 24 hour Intake 480 ml Output 1600 ml Net -1120 ml General Appearance: No acute distress HEENT: Good dentition Lungs: Decreased breath sounds Heart: Regular rate AND rhythm Abdomen: Soft, Round, Non-tender and Bowel sounds present Skin: Warm and Dry Musculoskeletal: No deformities Neurologic/Psychiatric: Oriented to time, place AND person MEDICATIONS Current hospital medications: insulin lispro 0-5 Units injection (rapid acting) (HumaLOG) 0-5 Units SUBCUTANEOUS 2 times per day insulin lispro injection (rapid acting) (HumaLOG) SUBCUTANEOUS w MEALS insulin lispro 8 Units injection (rapid acting) (HumaLOG) 8 Units SUBCUTANEOUS DAILY wDINNER insulin lispro 8 Units injection (rapid acting) (HumaLOG) 8 Units SUBCUTANEOUS DAILY wLUNCH furosemide 40 mg injection (LASIX) 40 mg INTRAVENOUS BID 9a/5p insulin lispro 12 Units injection (rapid acting) (HumaLOG) 12 Units SUBCUTANEOUS DAILY WITH BREAKFAST insulin glargine 30 Units pen (long acting) (LANTUS SOLOSTAR, BASAGLAR) 30 Units SUBCUTANEOUS DAILY carvedilol 6.25 mg tab(s) (COREG) 6.25 mg ORAL BID w MEALS traMADol 50 mg tab(s) (ULTRAM) 50 mg ORAL q 6 H PRN 0.9% NaCl 3-5 mL 3-5 mL INTRAVENOUS q 12 H heparin 5,000 Units injection 5,000 Units SUBCUTANEOUS q 12 H gabapentin 300 mg cap(s) (NEURONTIN) 300 mg ORAL BID atorvastatin 40 mg tab(s) (LIPITOR) 40 mg ORAL DAILY aspirin, enteric coated 81 mg tab(s) (ASPIRIN, ENTERIC COATED) 81 mg ORAL DAILY AT 9 PM clopidogrel 75 mg tab(s) (PLAVIX) 75 mg ORAL DAILY pantoprazole DR 20 mg tab(s) (PROTONIX) 20 mg ORAL DAILY levothyroxine (SYNTHROID) tab(s) 137 mcg 137 mcg ORAL BEFORE BREAKFAST DAILY dextrose 40 % 15 g 15 g ORAL PRN glucagon 1 mg injection (GLUCAGEN) 1 mg INTRAMUSCULAR PRN dextrose 50% in water 25 mL syringe 12.5 g INTRAVENOUS PRN DATA Recent Labs 08/27/17 0524 08/26/17 0645 08/25/17 0519 WBC 4.73 4.54 4.96 HB 8.8* 8.8* 8.1* HCT 26.7* 26.8* 25.0* PLT 72* 73* 70* Recent Labs 08/27/17 0524 08/26/17 0645 08/25/17 0519 NA 138 137 139 K 4.3 4.9 4.5 CO2 27 25 28 BUN 47* 45* 45* CREAT 2.01* 2.14* 1.99* GLUC 120* 208* 105* ASSESSMENT AND PLAN Presentation/Indication for admission/procedure: Hypervolemia, unspecified hypervolemia type [E87.70] LVEF: 37 RVEF: low normal Cards: Madai Cath: LM 100% ostial, LCx/RCA 100% ostial. 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 Pearson note) c/b portal HTN, EV (EGD 05/12 very small EV, on Coreg), [place] 2003 s/p CABGx3 (03/2004 SVG to Lcx, SVG to RCA and MCCONNELL graft to the LAD), ICM s/p CRTD placement (12/2010) (On ASA and Plavix), PAD s/p left lower extremity stenting (on ASA and Plavix) HFrEF (EF=40%), DMT2 (on insulin) and CKD stage 4 Procedure/OR performed (including complications): Echocardiogram Brief Hospital Course/Narrative: Mrs. Kalyn Cain was admitted through the Emergency Department with symptoms of shortness of breath, orthopnea, and lower extremity swelling over previous 2-3weeks. Given a recent CT scan done locally which showed swelling around liver AND spleen along with a concurrent history of HCV Cirrhosis, she was admitted to hepatology service. She was diuresed with IV lasix, however, underwent an echocardiogram which showed an ejection fraction of 40%, grade III diastolic dysfunction, low normal RV systolic function. Therefore, her fluid overload was felt to be related to heart dysfunction and she was transferred to cardiology service for further care. Issues to communicate: Lasix 40 IV BID Dry weight 230lb Problem Acute On Chronic Combined Systolic and Diastolic Chf (Congestive Heart Failure) ([facility]) History: Acute decompensated systolic HF Assessment: Moderate volume overload. Dry weight 230lb. Warm and wet Plan: Lasix 40mg IV BID, coreg. Resume altace, aldactone when able Coronary Artery Disease Involving [place] Coronary Artery of [place] Heart Without Angina Pectoris History: [place] 2004 s/p CABG x3 Assessment: Last cath 2016: LM 100% ostial, LCx/RCA 100% ostial. Patent MCCONNELL-LAD, SVG-RPDA, SVG-OM1 Plan: ASA, coreg, lipitor Cardiac Resynchronization Therapy Defibrillator (Pharmacist-D) in Place History: BSX N119 COGNIS 100-D 01/05/11 Assessment: BiV pacing 100% Plan: Device check done Pad (Peripheral Artery Disease) ([facility]) History: Hx claudication Assessment: s/p remote LE stenting Plan: ASA, plavix Ckd (Chronic Kidney Disease) Stage 4, Gfr 15-29 Ml/Min ([facility]) History: Baseline creat 2-2.2 Assessment: CKD stage 4, GFR 23 Plan: Monitor while diuresing Htn (Hypertension), Benign History: On coreg 12.5 bid, lasix 40 at home Assessment: Fairly well controlled Plan: Continue current meds. Monitor while diuresing. Re- titrate coreg Hyperlipidemia Ldl Goal <70 History: On lipitor 40 at home Assessment: LDL 44 Plan: Continue lipitor. Diabetes Mellitus Type 2 With Peripheral Artery Disease (Hcc) History: On Insulin Assessment: A1c 5.8 Plan: BG uncontrolled here. 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 Waqar Encinas, ENGINEERING PROGRAM ANALYST.[facility] Pager [phone] (please see below for after hours communication) 08/27/2017 12:17 PM For communication after 5 pm on weekdays and after 12 pm on weekends, please page the following: - Clinical Cardiology patients on all floors: page [phone] - Other Cardiology patients on J5 and J6: page [phone] - Other Cardiology patients on J7 and J8: page [phone] CONSULT PROG Observed: 08/27/2017 Status: COMPLETED Source: [place] 8:58 AM [facility] [place] REPOSITORY HNO ID: [id number] Author: Columba Ulloa ([facility]) Service: Endocrinology Author Type: Nurse Practitioner Type: Consult Progress Note Filed: 08/27/2017 5:56 PM Note Text: DIABETES CARE TEAM NOTE SERVICE DATE: 08/27/2017 SERVICE TIME: 8:58 AM Subjective Summary of History from Prior Record: Consult Date: 08/24/2017 ? HPI: Ms. Kalyn Cain is a 67 year old female with a >30?year history of Diabetes Mellitus Type 2 hyperglycemia?who was admitted on 08/19/2017 for evaluation of SOB + orthopnea. Past medical history significant for CAD s/p CABG x 4 03/2004 cirrhosis d/t chronic hepatitis C, portal HTN, ? HF CKD stage 3. Patient ?does ?exercise. Last HbA1c was 5.8% on 08/23/2017 ( not accurate as patient have chronic macrocytic anemia). ?She has no?family history of diabetes. She is followed by Dr. Ana Gutierrez ( Girdler reading recovery teacher) at [facility]?for her diabetes. ? ? DIABETIC COMPLICATIONS: Nephropathy: CKD stage 3 Neuropathy: Polyneuropathy CAD ? Pre-Admission DM Regimen: Preadmission oral agents: None Preadmission insulin regimen: Tresiba 60units ?Q am Novolog Sliding scale ?With meals starts with 10 units when BG before po intake is 150 mg/dL ? ? Self Monitoring Blood Glucose: Type of Monitor: Accucheck ? Frequency of Monitorin?times a day and PRN BG Values: 100-200 Hypoglycemia: Yes, Frequency: none for ?A year but had BG in 11 and in 1500 and has been hospitalized for lows in past x3 and once for high 1500 which related that to one of meds that she was on Symptoms: Shakiness and Sweating Feel symptoms when BS is 100?mg/dL INTERVAL HPI: No acute events overnight PERTINENT ROS: Constitutional:Feels well, no complaints Appetite:Intact GI:No nausea, no vomitting, no diarrhea, no constipation Objective PHYSICAL EXAM: BP 138/57 Pulse 70 Temp 36.8 ?C (98.2 ?F) (Oral) Resp 22 Ht 162.6 cm (5' 4) Wt 105.4 kg (232 lb 4.8 oz) SpO2 100% BMI 39.87 kg/m? General Appearance:A+O x 3 and In no apparent distress Affect:Pleasant and cooperative Eyes:Sclerae non-icteric Abdomen:Soft, non-tender and Bowel sounds x 4 Resp: Unlabored with RA Edema:Lower extremity 2+ Laboratory Results: Glucose (mg/dL) Date Value 08/27/2017 120 Potassium (mmol/L) Date Value 08/27/2017 4.3 Sodium (mmol/L) Date Value 08/27/2017 138 Chloride (mmol/L) Date Value 08/27/2017 99 CO2 (mmol/L) Date Value 08/27/2017 27 Creatinine (mg/dL) Date Value 08/27/2017 2.01 BUN (mg/dL) Date Value 08/27/2017 47 Anion Gap (mmol/L) Date Value 08/27/2017 12 Calcium (mg/dL) Date Value 08/27/2017 9.1 ALT Date Value Ref Range Status 08/27/2017 9 7 - 38 U/L Final AST Date Value Ref Range Status 08/27/2017 15 13 - 35 U/L Final Hemoglobin (g/dL) Date Value 08/27/2017 8.8 Hematocrit (%) Date Value 08/27/2017 26.7 WBC (k/uL) Date Value 08/27/2017 4.73 Platelet Count (k/uL) Date Value 08/27/2017 72 Hemoglobin A1C (%) Date Value 08/23/2017 5.8 LV Ejection Fraction (%) Date Value 08/24/2017 37 Diet: ?Carb Control: 3--5 CARBS/MEAL (<200 MG CHOL / LOW SAT FAT) electrolyte 2 GM sodium ? Supplements: N/A ? Other Pertinent Medications: Steroids none ? Diabetes Management in Hospital Hospital ?BG values or ranges: ? Date AM LUNCH DINNER HS 3AM 08/23/2017 148 330(H120 103 258 Lantus 20 u 251 08/24/2017 263(H9) 289(H9) 228(H8+4) 256(H6) Lantus 15? 90-?105 08/25/2017? ?162(H6+2) Lantus 15 u 273(H6+6)? 219(H8+4)? 187(H2)? ?81 08/26/2017? ?260(H8+6) Lantus 20 u ?357(H8+10) lantus 10 193(H8+2) 139? ?128 08/27/17 165(H12+H2) Lantus 30u 337(H8+H8) 146(H8) ? ? Impression/Recommendations:? Patient with uncontrolled Diabetes Mellitus Type 2 hyperglycemia?, who was admitted on 08/19/2017 for evaluation of SOB + orthopnea?whom we have been consulted for glycemic control. SOB + orthopnea due to volume overload secondary to HF. AM glucose improved, no change in basal at this time. Will likely need adjustment in prandial dosing. Will trend and adjust accordingly. Estimated Creatinine Clearance: 32.2 mL/min (A) (based on SCr of 2.01 mg/dL (H)). RECOMMENDATIONS: ? ?Basal Insulin: Lantus 30?units QAM ? ??Prandial Insulin: Humalog 12-8-8 units AC TID ? ?Supplemental Sliding Scale: Humalog Program #2 AC ANDadjust to #1 at HS and 2 am ? ?Accuchecks: AC/HS and 2am ? ?Recommend As per Unit Dietitian ? ?Consult CDE regarding: DM Education including none ? 1? DM DISCHARGE PLAN: ? ?MDI insulin of Tresiba and Novolog ?Doses TBD ? ?Check blood sugars Four times a Day? ? ?Diet: As per Unit Dietitian ? ?Exercise as prescribed by cardiology ? ?Follow up with pipe line inspector and computer project manager as recommended. ? ?Patient will need follow-up at with her home reading recovery teacher/PCP in 1-2 weeks after discharge. Prefer to follow locally ? ?Diabetes Care Team Hospital Discharge Help Line: [phone] ? ? SIGNATURE: Columba Ulloa APRN.CNP PATIENT NAME: Kalyn Cain DATE: August 27, 2017 TIME: 8:58 AM PAGER/CONTACT #: [phone] PROTIME Collected: 08/27/2017 Status: F Source: [place] 5:24 AM [facility] [place] REPOSITORY TYPE CODE TESTS RESULT OUT OF RANGE REFERENCE UNITS LAB PSEC 9.7-13.0 sec PT Sec 12.2 LAB INR 0.9-1.3 PT INR 1.2 Result Comment: Vitamin K Antagonist (VKA) Therapeutic Range: INR 2 to 3 (Target INR of 2.5) Note: For patients treated with VKA drugs, such as warfarin, the [place] [employer] Physicians 2012 Guideline recommends a therapeutic INR range of 2 to 3 (target INR of 2.5). This recommendation includes high-risk patients with antiphospholipid syndrome with previous arterial or venous thromboembolism, current-generation mechanical or bioprosthetic aortic heart valve replacement. Note: Patients with mechanical aortic valve replacement and additional risk factors for thromboembolic events (atrial fibrillation, previous thromboembolism, LV dysfunction, hypercoagulable conditions) or an older generation mechanical AVR (i.e., ball in-Cage) or any mechanical MVR should have a INR therapeutic range of 2.5 to 3.5 (target INR of 3). Lana GH, et al. Chest 2012, 141:7S-47S Joce RA, et al. [facility] 2017, 70: 252-289 Performed By: #### PT, CMP, CBC #### [facility] [address] [place] [address] COMP METABOLIC PANEL Collected: 08/27/2017 Status: F Source: [place] 5:24 AM [facility] REPOSITORY TYPE CODE TESTS RESULT OUT OF REFERENCE UNITS RANGE LAB TP 6.3-8.0 g/dL Protein, Total 7.0 LAB ALB 3.9-4.9 g/dL Low Albumin 3.3 LAB CA 8.5-10.2 mg/dL Calcium, Total 9.1 LAB TBIL 0.2-1.3 mg/dL Bilirubin, Total 0.7 LAB ALKP 32-117 U/L Alkaline Phosphatase 78 LAB AST 13-35 U/L AST 15 LAB GLU 74-99 mg/dL Glucose High 120 Result Comment: The [place] Diabetes Association (ADA) provides guidance for cutoff values for fasting glucose and random glucose. The ADA defines fasting as no caloric intake for at least 8 hours. Fas ting plasma glucose results between 100 to 125 mg/dL indicate increased risk for diabetes (prediabetes). Fasting plasma glucose results greater than or equal to 126 mg/dL meet the criteria for diagnosis of diabetes. In the absence of unequivocal hyperglycemia, results should be confirmed by repeat testing. In a patient with classic symptoms of hyperglycemia or hyperglycemic crisis, random plasma glucose results greater than or equal to 200 mg/dL meet the criteria for diagnosis of diabetes. Reference: Standards of Medical Care in Diabetes 2016, [place] Diabetes Association. Diabetes Care. 2016.39(Suppl 1). LAB BUN 7-21 mg/dL BUN High 47 LAB CRET 0.58-0.96 mg/dL Creatinine High 2.01 LAB NA 136-144 mmol/L Sodium 138 LAB K 3.7-5.1 mmol/L Potassium 4.3 LAB CL 97-105 mmol/L Chloride 99 LAB CO2 22-30 mmol/L CO2 27 LAB AGAP 9-18 mmol/L Anion Gap 12 LAB ALT 7-38 U/L ALT 9 LAB GFRAA eGFR- Amer. 30 LAB GFRNAA . eGFR-All Other Races 25 Result Comment: eGFR (Estimated GFR) Units of measure: mL/min/1.73 meters squared eGFR is derived from the reexpressed MDRD Study equation using the following parameters: serum creatinine, age, gender and race. The creatinine assay has been calibrated to be traceable to IDMS. An eGFR <60 mL/min/1.73m2 for >3 months is consistent with chronic kidney disease. Refer to KDOQI guidelines for clinical interpretation. In patients with unstable renal function, e.g. those with acute kidney injury, the eGFR may not accurately reflect actual GFR. Performed By: #### PT, CMP, CBC #### [facility] [employer] [address] [place], [place] [address] CBC Collected: 08/27/2017 Status: F Source: [place] 5:24 AM [facility] REPOSITORY TYPE CODE TESTS RESULT OUT OF REFERENCE UNITS RANGE LAB WBC 3.70-11.00 k/uL WBC 4.73 LAB RBC 3.90-5.20 m/uL Low RBC 2.69 LAB HGB 11.5-15.5 g/dL Low Hemoglobin 8.8 LAB HCT 36.0-46.0 % Low Hematocrit 26.7 LAB MCV 80.0-100.0 fL MCV 99.3 LAB MCH 26.0-34.0 pG MCH 32.7 LAB MCHC 30.5-36.0 g/dL MCHC 33.0 LAB RDWCV 11.5-15.0 % RDW-CV 13.8 LAB PLTCT 150-400 k/uL Low Platelet Count 72 Result Comment: No clot detected. LAB MPV 9.0-12.7 fL MPV 11.9 LAB ABSNUC <0.01 k/uL Absolute nRBC <0.01 Performed By: #### PT, CMP, CBC #### [facility] [employer] [address] [place], [place] [address] PROGRESS Observed: 08/26/2017 Status: COMPLETED Source: [place] 12:55 PM [facility] REPOSITORY HNO ID: [id number] Author: Devorah Encinas ([facility]) Service: Cardiovascular Medicine Author Type: Nurse Practitioner Type: Progress Notes Filed: 08/26/2017 3:28 PM Note Text: [facility] CARDIOVASCULAR MEDICINE PROGRESS NOTE (Template ID [id number]) Kalyn Cain [id number] PRIMARY SERVICE: Supervisor Pipeline/Pa, Hvi Clinical HOSPITAL DAY: # 7 INTERVAL HISTORY No acute events overnight. Diuresed suboptimally yesterday -only about 1300 out. Will increase lasix from 40mg daily to BID PHYSICAL EXAM BP 134/56 Pulse 70 Temp 36.7 ?C (98.1 ?F) (Oral) Resp 20 Ht 162.6 cm (5' 4) Wt 105.8 kg (233 lb 4.8 oz) SpO2 96% BMI 40.05 kg/m? Intake/Output Summary (Last 24 hours) at 08/26/17 1424 Last data filed at 08/26/17 1413 Gross per 24 hour Intake 800 ml Output 1700 ml Net -900 ml General Appearance: No acute distress HEENT: PERRLA Lungs: Crackles Heart: Regular rate AND rhythm Abdomen: Soft, Round, Non-tender and Bowel sounds present Skin: Warm and Dry Musculoskeletal: No deformities Neurologic/Psychiatric: Oriented to time, place AND person MEDICATIONS Current hospital medications: insulin lispro 0-5 Units injection (rapid acting) (HumaLOG) 0-5 Units SUBCUTANEOUS 2 times per day insulin lispro injection (rapid acting) (HumaLOG) SUBCUTANEOUS w MEALS insulin lispro 8 Units injection (rapid acting) (HumaLOG) 8 Units SUBCUTANEOUS DAILY wDINNER insulin lispro 8 Units injection (rapid acting) (HumaLOG) 8 Units SUBCUTANEOUS DAILY wLUNCH furosemide 40 mg injection (LASIX) 40 mg INTRAVENOUS BID 9a/5p [START ON 08/27/2017] insulin lispro 12 Units injection (rapid acting) (HumaLOG) 12 Units SUBCUTANEOUS DAILY WITH BREAKFAST [START ON 08/27/2017] insulin glargine 30 Units pen (long acting) (LANTUS SOLOSTAR, BASAGLAR) 30 Units SUBCUTANEOUS DAILY carvedilol 6.25 mg tab(s) (COREG) 6.25 mg ORAL BID w MEALS traMADol 50 mg tab(s) (ULTRAM) 50 mg ORAL q 6 H PRN 0.9% NaCl 3-5 mL 3-5 mL INTRAVENOUS q 12 H heparin 5,000 Units injection 5,000 Units SUBCUTANEOUS q 12 H gabapentin 300 mg cap(s) (NEURONTIN) 300 mg ORAL BID atorvastatin 40 mg tab(s) (LIPITOR) 40 mg ORAL DAILY aspirin, enteric coated 81 mg tab(s) (ASPIRIN, ENTERIC COATED) 81 mg ORAL DAILY AT 9 PM clopidogrel 75 mg tab(s) (PLAVIX) 75 mg ORAL DAILY pantoprazole DR 20 mg tab(s) (PROTONIX) 20 mg ORAL DAILY levothyroxine (SYNTHROID) tab(s) 137 mcg 137 mcg ORAL BEFORE BREAKFAST DAILY dextrose 40 % 15 g 15 g ORAL PRN glucagon 1 mg injection (GLUCAGEN) 1 mg INTRAMUSCULAR PRN dextrose 50% in water 25 mL syringe 12.5 g INTRAVENOUS PRN DATA Recent Labs 08/26/17 0645 08/25/17 0519 08/24/17 0450 WBC 4.54 4.96 4.29 HB 8.8* 8.1* 8.6* HCT 26.8* 25.0* 25.9* PLT 73* 70* 70* Recent Labs 08/26/17 0645 08/25/17 0519 08/24/17 0450 NA 137 139 134* K 4.9 4.5 5.0 CO2 25 28 25 BUN 45* 45* 49* CREAT 2.14* 1.99* 2.10* GLUC 208* 105* 251* ASSESSMENT AND PLAN Presentation/Indication for admission/procedure: Hypervolemia, unspecified hypervolemia type [E87.70] LVEF: 37 RVEF: low normal Cards: Mad[place] Cath: LM 100% ostial, LCx/RCA 100% ostial. 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 Michel ferreira) c/b portal HTN, EV (EGD 05/12 very small EV, on Coreg), [place] 2003 s/p CABGx3 (03/2004 SVG to Lcx, SVG to RCA and MCCONNELL graft to the LAD), ICM s/p CRTD placement (12/2010) (On ASA and Plavix), PAD s/p left lower extremity stenting (on ASA and Plavix) HFrEF (EF=40%), DMT2 (on insulin) and CKD stage 4 Procedure/OR performed (including complications): Echocardiogram Brief Hospital Course/Narrative: Mrs. Kalyn Cain was admitted through the Emergency Department with symptoms of shortness of breath, orthopnea, and lower extremity swelling over previous 2-3weeks. Given a recent CT scan done locally which showed swelling around liver AND spleen along with a concurrent history of HCV Cirrhosis, she was admitted to hepatology service. She was diuresed with IV lasix, however, underwent an echocardiogram which showed an ejection fraction of 40%, grade III diastolic dysfunction, low normal RV systolic function. Therefore, her fluid overload was felt to be related to heart dysfunction and she was transferred to cardiology service for further care. Issues to communicate: Lasix 40 IV BID Dry weight 230lb Problem Acute On Chronic Combined Systolic and Diastolic Chf (Congestive Heart Failure) ([facility]) History: Acute decompensated systolic HF Assessment: Moderate volume overload. Dry weight 230lb. Warm and wet Plan: Lasix 40mg IV BID, coreg. Resume altace, aldactone when able Active Hospital Problems Diagnosis - Acute on chronic combined systolic and diastolic CHF (congestive heart failure) ([facility]) History: Acute decompensated systolic HF Assessment: Moderate volume overload. Dry weight 230lb. Warm and wet Plan: Lasix 40mg IV BID, coreg. Resume altace, aldactone when able - Coronary artery disease involving [place] coronary artery [place] heart without angina pectoris History: [place] 2004 s/p CABG x3 Assessment: Last cath 2016: LM 100% ostial, LCx/RCA 100% ostial. Patent MCCONNELL-LAD, SVG-RPDA, SVG-OM1 Plan: ASA, coreg, lipitor - Cardiac resynchronization therapy defibrillator (SPINNING AND WINDING SUPERVISOR-D) in place History: BSX N119 COGNIS 100-D 01/05/11 Assessment: BiV pacing 100% Plan: Device check done - PAD (peripheral artery disease) ([facility]) History: Hx claudication Assessment: s/p remote LE stenting Plan: ASA, plavix - CKD (chronic kidney disease) stage 4, GFR 15-29 ml/min ([facility]) History: Baseline creat 2-2.2 Assessment: CKD stage 4, GFR 23 Plan: Monitor while diuresing - HTN (hypertension), benign History: On coreg 12.5 bid, lasix 40 at home Assessment: Fairly well controlled Plan: Continue current meds. Monitor while diuresing. Re- titrate coreg - Hyperlipidemia LDL goal <70 History: On lipitor 40 at home Assessment: LDL 44 Plan: Continue lipitor. - Diabetes mellitus type 2 with peripheral artery disease (HCC) History: On Insulin Assessment: A1c 5.8 Plan: BG uncontrolled here. 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 Waqar Encinas APRN.[employer] Pager [phone] (please see below for after hours communication) 08/26/2017 2:24 PM For communication after 5 pm on weekdays and after 12 pm on weekends, please page the following: - Clinical Cardiology patients on all floors: page [phone] - Other Cardiology patients on J5 and J6: page [phone] - Other Cardiology patients on J7 and J8: page [phone] CONSULT PROG Observed: 08/26/2017 Status: COMPLETED Source: [place] 7:46 AM [facility] REPOSITORY HNO ID: [id number] Author: Aretha Rudolph (Management Retail Intern) Service: Endocrinology Author Type: Nurse Practitioner Type: Consult Progress Note Filed: 08/26/2017 6:55 PM Note Text: DIABETES CARE TEAM NOTE SERVICE DATE: 08/26/2017 SERVICE TIME: 7:46 AM Subjective Summary of History from Prior Record: Consult Date: 08/24/2017 ? Subjective ? ? HPI: Ms. Kalyn Cain is a 67 year old female with a >30?year history of Diabetes Mellitus Type 2 hyperglycemia?who was admitted on 08/19/2017 for evaluation of SOB + orthopnea Past medical history significant for CAD s/p CABG x 4 03/2004 cirrhosis d/t chronic hepatitis C, portal HTN, ? HF CKD stage 3. Patient ?does ?exercise. Last HbA1c was 5.8% on 08/23/2017 ( not accurate as patient have chronic macrocytic anemia). ?She has no?family history of diabetes. She is followed by Dr. Ana Gutierrez ( Girdler reading recovery teacher) at [facility]?for her diabetes. ? ? DIABETIC COMPLICATIONS: Nephropathy: CKD stage 3 Neuropathy: Polyneuropathy CAD ? Pre-Admission DM Regimen: Preadmission oral agents: None Preadmission insulin regimen: Tresiba 60units ?Q am Novolog Sliding scale ?With meals starts with 10 units when BG before po intake is 150 mg/dL ? ? Self Monitoring Blood Glucose: Type of Monitor: Accucheck ? Frequency of Monitorin?times a day and PRN BG Values: 100-200 Hypoglycemia: Yes, Frequency: none for ?A year but had BG in 11 and in 1500 and has been hospitalized for lows in past x3 and once for high 1500 which related that to one of meds that she was on Symptoms: Shakiness and Sweating Feel symptoms when BS is 100?mg/dL INTERVAL HPI: uneventful PERTINENT ROS: Constitutional:up in chair went to HF class yewsterday Appetite:Intact GI:No nausea, no vomitting, no diarrhea, no constipation Objective PHYSICAL EXAM: BP 154/70 Pulse 70 Temp 36.9 ?C (98.4 ?F) (Oral) Resp 16 Ht 162.6 cm (5' 4) Wt 105.8 kg (233 lb 4.8 oz) SpO2 98% BMI 40.05 kg/m? General Appearance:In no apparent distress Affect:coperative Eyes:Sclerae non-icteric Abdomen:obese+ BS Skin/Lipohypertrophy:no cyanosis Edema:Lower extremity 2+ HR on tele 70 Laboratory Results: Glucose (mg/dL) Date Value 08/25/2017 105 Potassium (mmol/L) Date Value 08/25/2017 4.5 Sodium (mmol/L) Date Value 08/25/2017 139 Chloride (mmol/L) Date Value 08/25/2017 100 CO2 (mmol/L) Date Value 08/25/2017 28 Creatinine (mg/dL) Date Value 08/25/2017 1.99 BUN (mg/dL) Date Value 08/25/2017 45 Anion Gap (mmol/L) Date Value 08/25/2017 11 Calcium (mg/dL) Date Value 08/25/2017 8.9 ALT Date Value Ref Range Status 08/25/2017 7 7 - 38 U/L Final AST Date Value Ref Range Status 08/25/2017 11 (L) 13 - 35 U/L Final Hemoglobin (g/dL) Date Value 08/25/2017 8.1 Hematocrit (%) Date Value 08/25/2017 25.0 WBC (k/uL) Date Value 08/25/2017 4.96 Platelet Count (k/uL) Date Value 08/25/2017 70 Hemoglobin A1C (%) Date Value 08/23/2017 5.8 LV Ejection Fraction (%) Date Value 08/24/2017 37 Diet: Carb Control: 3--5 CARBS/MEAL (<200 MG CHOL / LOW SAT FAT) electrolyte 2 GM sodium ? Supplements: N/A ? Other Pertinent Medications: Steroids none ? Diabetes Management in Hospital Hospital ?BG values or ranges: ? Date AM LUNCH DINNER HS 3AM 08/23/2017 148 330(H120 103 258 Lantus 20 u 251 08/24/2017 263(H9) 289(H9) 228(H8+4) 256(H6) Lantus 15? 90-?105 08/25/2017? ?162(H6+2) Lantus 15 u 273(H6+6)? 219(H8+4)? 187(H2)? ?81 08/26/2017? ?260(H8+6) Lantus 20 u ?357(H8+10) lantus 10 193(H8+2) ? Impression/Recommendations:? Patient with uncontrolled Diabetes Mellitus Type 2 hyperglycemia?, who was admitted on 08/19/2017 for evaluation of SOB + orthopnea?whom we have been consulted for glycemic control. SOB + orthopnea due to volume overload secondary to HF, BG above normal with meal intake but tight at 2am. Will use gentle scale at HS and 2am. Higher boluses will be given with meals today. Will continue to monitor BG trends and adjust plan as needed. elevated sCr noted RECOMMENDATIONS: ? ?Basal Insulin: Lantus 20?units QAM ? ? Prandial Insulin: Humalog 8 units AC TID ? ?Supplemental Sliding Scale: Humalog Program #2 AC ANDadjust to #1 at HS and 2 am ? ?Accuchecks: AC/HS and 2am ? ?Recommend As per Unit Dietitian ? ?Consult CDE regarding: DM Education including none ? 12:42 PM BG high will give 10 more Lantus now for the total of 30 units for today. Also will increase H to 12-8-8 ac for now. Aretha Rudolph APRN.DAVE DM DISCHARGE PLAN: ? ?MDI insulin of Tresiba and Novolog ?Doses TBD ? ?Check blood sugars Four times a Day? ? ?Diet: As per Unit Dietitian ? ?Exercise as prescribed by cardiology ? ?Follow up with pipe line inspector and computer project manager as recommended. ? ?Patient will need follow-up at with her home reading recovery teacher/PCP in 1-2 weeks after discharge. Prefer to follow locally ? ?Diabetes Care Team Hospital Discharge Help Line: [phone] ? ? ? SIGNATURE: Aretha Rudolph APRN.[employer] PATIENT NAME: Kalyn Cain DATE: August 26, 2017 TIME: 7:46 AM PAGER/CONTACT #: [id number] PROTIME Collected: 08/26/2017 Status: F Source: [place] 6:45 AM [facility] REPOSITORY TYPE CODE TESTS RESULT OUT OF RANGE REFERENCE UNITS LAB PSEC 9.7-13.0 sec PT Sec 11.9 LAB INR 0.9-1.3 PT INR 1.2 Result Comment: Vitamin K Antagonist (VKA) Therapeutic Range: INR 2 to 3 (Target INR of 2.5) Note: For patients treated with VKA drugs, such as warfarin, the [place] [employer] 2012 Guideline recommends a therapeutic INR range of 2 to 3 (target INR of 2.5). This recommendation includes high-risk patients with antiphospholipid syndrome with previous arterial or venous thromboembolism, current-generation mechanical or bioprosthetic aortic heart valve replacement. Note: Patients with mechanical aortic valve replacement and additional risk factors for thromboembolic events (atrial fibrillation, previous thromboembolism, LV dysfunction, hypercoagulable conditions) or an older generation mechanical AVR (i.e., ball in-Cage) or any mechanical MVR should have a INR therapeutic range of 2.5 to 3.5 (target INR of 3). Lana GH, et al. Chest 2012, 141:7S-47S Joce RA, et al. [facility] 2017, 70: 252-289 Performed By: #### PT, CBC, CMP #### [facility] [employer] [address], [place] [address] CBC Collected: 08/26/2017 Status: F Source: [place] 6:45 AM [facility] REPOSITORY TYPE CODE TESTS RESULT OUT OF REFERENCE UNITS RANGE LAB WBC 3.70-11.00 k/uL WBC 4.54 LAB RBC 3.90-5.20 m/uL Low RBC 2.73 LAB HGB 11.5-15.5 g/dL Low Hemoglobin 8.8 LAB HCT 36.0-46.0 % Low Hematocrit 26.8 LAB MCV 80.0-100.0 fL MCV 98.2 LAB MCH 26.0-34.0 pG MCH 32.2 LAB MCHC 30.5-36.0 g/dL MCHC 32.8 LAB RDWCV 11.5-15.0 % RDW-CV 13.9 LAB PLTCT 150-400 k/uL Low Platelet Count 73 Result Comment: No clot detected. LAB MPV 9.0-12.7 fL MPV 11.4 LAB ABSNUC <0.01 k/uL Absolute nRBC <0.01 Performed By: #### PT, CBC, CMP #### [facility] [employer] [address] [place], [place] [address] COMP METABOLIC PANEL Collected: 08/26/2017 Status: F Source: [place] 6:45 AM [facility] REPOSITORY TYPE CODE TESTS RESULT OUT OF REFERENCE UNITS RANGE LAB TP 6.3-8.0 g/dL Protein, Total 7.4 LAB ALB 3.9-4.9 g/dL Low Albumin 3.3 LAB CA 8.5-10.2 mg/dL Calcium, Total 9.2 LAB TBIL 0.2-1.3 mg/dL Bilirubin, Total 0.8 LAB ALKP 32-117 U/L Alkaline Phosphatase 82 LAB AST 13-35 U/L AST 14 LAB GLU 74-99 mg/dL Glucose High 208 Result Comment: The [place] Diabetes Association (ADA) provides guidance for cutoff values for fasting glucose and random glucose. The ADA defines fasting as no caloric intake for at least 8 hours. Fas ting plasma glucose results between 100 to 125 mg/dL indicate increased risk for diabetes (prediabetes). Fasting plasma glucose results greater than or equal to 126 mg/dL meet the criteria for diagnosis of diabetes. In the absence of unequivocal hyperglycemia, results should be confirmed by repeat testing. In a patient with classic symptoms of hyperglycemia or hyperglycemic crisis, random plasma glucose results greater than or equal to 200 mg/dL meet the criteria for diagnosis of diabetes. Reference: Standards of Medical Care in Diabetes 2016, [place] Diabetes Association. Diabetes Care. 2016.39(Suppl 1). LAB BUN 7-21 mg/dL BUN High 45 LAB CRET 0.58-0.96 mg/dL Creatinine High 2.14 LAB NA 136-144 mmol/L Sodium 137 LAB K 3.7-5.1 mmol/L Potassium 4.9 LAB CL 97-105 mmol/L Chloride 98 LAB CO2 22-30 mmol/L CO2 25 LAB AGAP 9-18 mmol/L Anion Gap 14 LAB ALT 7-38 U/L ALT 9 LAB GFRAA eGFR- Amer. 28 LAB GFRNAA . eGFR-All Other Races 23 Result Comment: eGFR (Estimated GFR) Units of measure: mL/min/1.73 meters squared eGFR is derived from the reexpressed MDRD Study equation using the following parameters: serum creatinine, age, gender and race. The creatinine assay has been calibrated to be traceable to IDMS. An eGFR <60 mL/min/1.73m2 for >3 months is consistent with chronic kidney disease. Refer to KDOQI guidelines for clinical interpretation. In patients with unstable renal function, e.g. those with acute kidney injury, the eGFR may not accurately reflect actual GFR. Performed By: #### PT, CBC, CMP #### [facility] [address] [place], [place] [address] PT ED Observed: 08/25/2017 Status: COMPLETED Source: [place] 3:09 PM [facility] REPOSITORY HNO ID: [id number] Author: Royal Mcnally (Pharmacist) Service: Pharmacy Author Type: Pharmacist Type: Patient Education Filed: 08/25/2017 3:09 PM Note Text: Heart Failure Counseling with Class Instruction Education Note Patient Name:Eugenio Cain Service Date: 08/25/2017 Service Time: 3:09 PM Heart Failure Education Provided: Patient was provided written and verbal instructions of heart failure management, activity as tolerated, signs and symptoms of heart failure/worsening heart failure, and to contact their physician if exhibits these symptoms. Instructed patient to contact his or her HF physician if his or her weight increases or decreases more than or equal to 4 lbs from dry weight. Medication Education Provided: 1. Reason for taking medications and treatment goals. 2. Benefits of medication therapy. 3. How medications work. 4. Necessary laboratory monitoring. 5. When to take medications and what to do if a dose is missed. 6. Drug interactions (Rx, OTC, herbal) and importance of notifying healthcare provider with any medication changes. 7. Potential duration of therapy. 8. Potential side effects of medications. 9. Use of control measures if applicable. 10. Importance of regularly filling prescriptions and taking medications. 11. Proper storage of medications. Patient was given opportunity to ask questions and receive answers. Current Inpatient Medications: Current hospital medications: insulin lispro 6 Units injection (rapid acting) (HumaLOG) 6 Units SUBCUTANEOUS DAILY wLUNCH furosemide 40 mg injection (LASIX) 40 mg INTRAVENOUS DAILY [START ON 08/26/2017] insulin glargine 20 Units pen (long acting) (LANTUS SOLOSTAR, BASAGLAR) 20 Units SUBCUTANEOUS DAILY [START ON 08/26/2017] insulin lispro 8 Units injection (rapid acting) (HumaLOG) 8 Units SUBCUTANEOUS DAILY WITH BREAKFAST insulin lispro 8 Units injection (rapid acting) (HumaLOG) 8 Units SUBCUTANEOUS DAILY wDINNER insulin lispro injection (rapid acting) (HumaLOG) SUBCUTANEOUS w MEALS AND HS insulin lispro 0-10 Units injection (rapid acting) (HumaLOG) 0-10 Units SUBCUTANEOUS q 24 HR carvedilol 6.25 mg tab(s) (COREG) 6.25 mg ORAL BID w MEALS traMADol 50 mg tab(s) (ULTRAM) 50 mg ORAL q 6 H PRN 0.9% NaCl 3-5 mL 3-5 mL INTRAVENOUS q 12 H heparin 5,000 Units injection 5,000 Units SUBCUTANEOUS q 12 H gabapentin 300 mg cap(s) (NEURONTIN) 300 mg ORAL BID atorvastatin 40 mg tab(s) (LIPITOR) 40 mg ORAL DAILY aspirin, enteric coated 81 mg tab(s) (ASPIRIN, ENTERIC COATED) 81 mg ORAL DAILY AT 9 PM clopidogrel 75 mg tab(s) (PLAVIX) 75 mg ORAL DAILY pantoprazole DR 20 mg tab(s) (PROTONIX) 20 mg ORAL DAILY levothyroxine (SYNTHROID) tab(s) 137 mcg 137 mcg ORAL BEFORE BREAKFAST DAILY dextrose 40 % 15 g 15 g ORAL PRN glucagon 1 mg injection (GLUCAGEN) 1 mg INTRAMUSCULAR PRN dextrose 50% in water 25 mL syringe 12.5 g INTRAVENOUS PRN READINESS TO LEARN COGNITIVE ABILITY: Alert and Oriented MOTIVATION TO LEARN: Interested FAMILY SUPPORT: High - Very involved in pt care INSTRUCTION PROVIDED TO: Patient and family member PATIENT LEARNS BEST BY: Multiple Methods FACTORS AFFECTING LEARNING: None or unable to assess PHYSICAL LIMITATIONS AFFECTING LEARNING: none or unable to assess LEARNING RESPONSE DIAGNOSIS: Heart Failure PATIENT/FAMILY RESPONSE: Verbalizes understanding of: Accurate knowledge of prescribed medication prior to discharge. The correct action to take if medication dose is missed. The side effects associated with the medication that warrant a call to the physician. Diet / weight monitoring METHOD OF INSTRUCTION: Group Class Instruction FOLLOW-UP PLAN: None INSTRUCTIONAL AIDS USED: Your Guide to Managing Heart Failure SUPPLEMENTAL MATERIAL PROVIDED: Slides FURTHER RECOMMENDATIONS (IF ANY): none SIGNATURE: Royal Mcnally Pharmacist PAGER: [phone] PT ED Observed: 08/25/2017 Status: COMPLETED Source: [place] 2:44 PM [facility] REPOSITORY O ID: [id number] Author: Honey McduffieDiet-TSulma Uriostegui Service: Nutrition Therapy Author Type: Compliance Clerk Type: Patient Education Filed: 08/25/2017 2:44 PM Note Text: [facility] PATIENT EDUCATION TOPIC: Survival Skills: Diet PATIENT NAME: Kalyn Cain SERVICE DATE: August 25, 2017 Diagnosis: ADULT: Heart Failure READINESS TO LEARN Cognitive Ability: Alert and oriented Motivation to Learn: Eager Family Support: High - Very involved in pt care Instruction Provided to: Patient and Family member Patient Learns Best by: Unable to Assess Factors Affecting Learning: None Physical Limitations Affecting Learning: None LEARNING RESPONSE Enteral Nutrition Access Device: None Patient/Family Response: Verbalizes understanding of Heart Failure Diet: Rationale of sodium restriction, food sources typically high in sodium, acceptable food choices, foods to avoid, seasoning alternatives, how to read a food label and fluid guidelines as applicable. Method of Instruction: Group class instruction Follow-Up Plan: Complete - No need for follow-up Instructional Aids Used: Slides Supplemental Material Provided to Patient: Heart Failure book addressing diet, activity, medications, symptoms and weight monitoring Referral (Recommendation): None MNT Billing Type: Routine Care/15 min 2 units Honey Uriostegui Diet-T Pager: August 25, 2017 2:44 PM PT ED Observed: 08/25/2017 Status: COMPLETED Source: [place] 1:27 PM [facility] REPOSITORY O ID: [id number] Author: Cindi Rios Service: Diabetes Education Author Type: Registered Dietitian Type: Patient Education Filed: 08/25/2017 1:31 PM Note Text: PATIENT EDUCATION DIABETES Patient does not need any dm discharge scripts See 08/23/17 and 08/24/17: Cindi Rios diabetes education note TOPIC: SURVIVAL SKILLS: Medication Administration : Reviewed current MDI regime; amount of lantus and novolog may change by discharge. Reviewed with patient/patient's : meal time dose of humalog/novolog and correction. If patient does not eat a meal: check blood sugar and only give correction. Patient stated skips lunch. If needed may have 2 lists: one when does not eat a meal and combined list when eat a meal and correctioni addded. Patient/huband to discuss with ORE SAMPLER/endo as outpatient. PATIENT NAME: Kalyn Cain PATIENT LOCATION: [place] [id number] READINESS TO LEARN COGNITIVE ABILITY: Alert and oriented Confused at times MOTIVATION TO LEARN: Interested FAMILY SUPPORT: High - Very involved in pt care INSTRUCTION PROVIDED TO: Patient and family member PATIENT LEARNS BEST BY: Individual Instruction Written Instruction - Hand-outs Verbal Instruction FACTORS AFFECTING LEARNING: Unable to assess PHYSICAL LIMITATIONS AFFECTING LEARNING: Pain , Fatigue and Limited Mobility LEARNING RESPONSE DIAGNOSIS: Diabetes PATIENT/FAMILY RESPONSE: Verbalizes understanding of: EQUIPMENT USE: Blood Glucose Meter Insulin Pen MEDICAL REGIMEN-Importance of following prescribed medical regimen SELF INJECTION- Correct procedure to administer self injection using clean technique SYMPTOM MANAGEMENT-Correct actions to take to manage symptoms associated with a blood glucose below 70 mg/dL or above 150 mg/dL WORSENING CONDITION-Notify physician or provider if blood glucose is above 150 mg/dL for one week, above 300 mg/dL for 2 consecutive readings or above 400 mg/dL for one reading METHOD OF INSTRUCTION: Individual instruction Written instruction - handouts Verbal instruction FOLLOW-UP PLAN: Complete - No need for follow-up INSTRUCTIONAL AIDS USED: Your Diabetes Guide SUPPLEMENTAL MATERIAL PROVIDED TO PATIENT: Log book REFERRAL (RECOMMENDATION): [facility] in area Electronically Signed By: Cindi Rios RD CDE MPH beeper: [phone] Time = 45 minutes CASE MANAGEM Observed: 08/25/2017 Status: COMPLETED Source: [place] 11:58 AM [facility] REPOSITORY HNO ID: [id number] Author: Clint Whittaker) ROMÁN Patino Service: Case Management Author Type: Registered Nurse Type: Care Mgt Progress Note Filed: 08/25/2017 12:00 PM Note Text: CARE MANAGEMENT PROGRESS NOTE SERVICE DATE: 08/25/2017 SERVICE TIME: 1158 LOS: 6 days Pt transferred to [facility] for further management of her HF. PT previously recommended pt for home. Currently on RA. No skilled needs identified at this time. CM will continue to follow for DC planning/needs. SIGNATURE: Clint Patino RN PATIENT NAME: Kalyn Cain DATE: August 25, 2017 TIME: 11:58 AM PAGER/CONTACT #: [phone] NUTRITION Observed: 08/25/2017 Status: COMPLETED Source: [place] 10:20 AM [facility] REPOSITORY HNO ID: [id number] Author: Maddy Turner (Diet-T) Service: Nutrition Therapy Author Type: Compliance Clerk Type: Nutrition Filed: 08/25/2017 10:22 AM Note Text: NUTRITION THERAPY FOLLOW-UP NOTE SERVICE DATE: 08/25/2017 SERVICE TIME: 820 Anthropometrics: Height: 162.6 cm (5' 4) Current Weight: Weight: 106.2 kg (234 lb 3.2 oz) Body mass index is 40.2 kg/m?. Loss of lean body mass/visual muscle wasting: no Admitting Diagnosis: Hypervolemia, unspecified hypervolemia type [E87.70] Present Diet Order: Carbohydrate Controlled and Electrolyte Controlled 2 gm Na Is the patient having any pain that is interfering with oral/enteral intake? No Allergies: ALLERGIES Allergen Reactions - Nexium [Esomeprazol* Itching Reason for Visit: Nutrition screen: LOS > 6 days Nutrient intake assessment: Current intake of meals: 75 - 100% Patient concerns/Issues: The patient has a good appetite. She would like to have snacks in the evening. The patient declined supplements. No other issues or concerns. The patient is supposed to go to heart failure class. Information was given to the patient and declined at bedside. Education needs: Readiness to learn: No/patient declines and Patient provided with diet education materials to review before education is completed Nursing Admission Assessment Malnutrition Score Tool: 1 Plan of Care: Recommendation No problems noted at this time. Will screen again within 7 days and Diet education heart failure Discharge Plan: Home on diet as ordered MNT Billing Type: Routine Care/15 min 1 unit SIGNATURE: MARLINE Meneses PATIENT NAME: Kalyn Cain DATE: August 25, 2017 TIME: 10:20 AM PAGER: [phone] PROGRESS Observed: 08/25/2017 Status: COMPLETED Source: [place] 9:16 AM [facility] REPOSITORY O ID: [id number] Author: Devorah Encinas Service: Cardiovascular Medicine Author Type: Nurse Practitioner Type: Progress Notes Filed: 08/25/2017 3:06 PM Note Text: [facility] CARDI[facility]ASCULAR [facility]ICINE PROGRESS NOTE (Template ID [id number]) Kalyn Cain [id number] PRIMARY SERVICE: Supervisor [employer]/Pa, i Clinical HOSPITAL DAY: # 6 INTERVAL HISTORY No acute events overnight. Diuresed well with 40mg of IV lasix overnight (-2.8L). Will redose today with 40mg of IV lasix. PHYSICAL EXAM BP 128/98 Pulse 70 Temp 36.7 ?C (98 ?F) (Oral) Resp 18 Ht 162.6 cm (5' 4) Wt 106.2 kg (234 lb 3.2 oz) SpO2 96% BMI 40.20 kg/m? Intake/Output Summary (Last 24 hours) at 08/25/17 1503 Last data filed at 08/25/17 1423 Gross per 24 hour Intake 435 ml Output 1600 ml Net -1165 ml General Appearance: No acute distress HEENT: PERRLA Lungs: Crackles Heart: Regular rate AND rhythm Abdomen: Soft, Round, Non-tender and Bowel sounds present Skin: Warm and Dry Musculoskeletal: No deformities Neurologic/Psychiatric: Oriented to time, place AND person MEDICATIONS Current hospital medications: insulin lispro 6 Units injection (rapid acting) (HumaLOG) 6 Units SUBCUTANEOUS DAILY wLUNCH furosemide 40 mg injection (LASIX) 40 mg INTRAVENOUS DAILY [START ON 08/26/2017] insulin glargine 20 Units pen (long acting) (LANTUS SOLOSTAR, BASAGLAR) 20 Units SUBCUTANEOUS DAILY [START ON 08/26/2017] insulin lispro 8 Units injection (rapid acting) (HumaLOG) 8 Units SUBCUTANEOUS DAILY WITH BREAKFAST insulin lispro 8 Units injection (rapid acting) (HumaLOG) 8 Units SUBCUTANEOUS DAILY wDINNER insulin lispro injection (rapid acting) (HumaLOG) SUBCUTANEOUS w MEALS AND HS insulin lispro 0-10 Units injection (rapid acting) (HumaLOG) 0-10 Units SUBCUTANEOUS q 24 HR carvedilol 6.25 mg tab(s) (COREG) 6.25 mg ORAL BID w MEALS traMADol 50 mg tab(s) (ULTRAM) 50 mg ORAL q 6 H PRN 0.9% NaCl 3-5 mL 3-5 mL INTRAVENOUS q 12 H heparin 5,000 Units injection 5,000 Units SUBCUTANEOUS q 12 H gabapentin 300 mg cap(s) (NEURONTIN) 300 mg ORAL BID atorvastatin 40 mg tab(s) (LIPITOR) 40 mg ORAL DAILY aspirin, enteric coated 81 mg tab(s) (ASPIRIN, ENTERIC COATED) 81 mg ORAL DAILY AT 9 PM clopidogrel 75 mg tab(s) (PLAVIX) 75 mg ORAL DAILY pantoprazole DR 20 mg tab(s) (PROTONIX) 20 mg ORAL DAILY levothyroxine (SYNTHROID) tab(s) 137 mcg 137 mcg ORAL BEFORE BREAKFAST DAILY dextrose 40 % 15 g 15 g ORAL PRN glucagon 1 mg injection (GLUCAGEN) 1 mg INTRAMUSCULAR PRN dextrose 50% in water 25 mL syringe 12.5 g INTRAVENOUS PRN DATA Recent Labs 08/25/17 0519 08/24/17 0450 08/23/17 0611 WBC 4.96 4.29 4.84 HB 8.1* 8.6* 8.4* HCT 25.0* 25.9* 25.9* PLT 70* 70* 75* Recent Labs 08/25/17 0519 08/24/17 0450 08/23/17 0611 NA 139 134* 136 K 4.5 5.0 4.8 CO2 28 25 26 BUN 45* 49* 45* CREAT 1.99* 2.10* 2.18* GLUC 105* 251* 116* ASSESSMENT AND PLAN Presentation/Indication for admission/procedure: Hypervolemia, unspecified hypervolemia type [E87.70] LVEF: 37 RVEF: low normal Cards: Madai Cath: LM 100% ostial, LCx/RCA 100% ostial. 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 Pearson note) c/b portal HTN, EV (EGD 05/12 very small EV, on Coreg), [place] 2003 s/p CABGx3 (03/2004 SVG to Lcx, SVG to RCA and MCCONNELL graft to the LAD), ICM s/p CRTD placement (12/2010) (On ASA and Plavix), PAD s/p left lower extremity stenting (on ASA and Plavix) HFrEF (EF=40%), DMT2 (on insulin) and CKD stage 3b Procedure/OR performed (including complications): Echocardiogram Brief Hospital Course/Narrative: Mrs. Kalyn Cain was admitted through the Emergency Department with symptoms of shortness of breath, orthopnea, and lower extremity swelling over previous 2-3weeks. Given a recent CT scan done locally which showed swelling around liver AND spleen along with a concurrent history of HCV Cirrhosis, she was admitted to hepatology service. She was diuresed with IV lasix, however, underwent an echocardiogram which showed an ejection fraction of 40%, grade III diastolic dysfunction, low normal RV systolic function. Therefore, her fluid overload was felt to be related to heart dysfunction and she was transferred to cardiology service for further care. Issues to communicate: Lasix 40 IV daily Dry weight 230lb Problem Hyperlipidemia Ldl Goal <70 History: On lipitor 40 at home Assessment: LDL 44 Plan: Continue lipitor. Acquired Hypothyroidism History: On synthroid 137mcg Assessment: TSH 1.990 Plan: Continue synthroid Active Hospital Problems Diagnosis - Acute on chronic combined systolic and diastolic CHF (congestive heart failure) ([facility]) History: Acute decompensated systolic HF Assessment: Moderate volume overload. Dry weight 230lb. Warm and wet Plan: Lasix 40mg IV daily, coreg. Resume altace, aldactone when able - Coronary artery disease involving [place] coronary artery [place] heart without angina pectoris History: [place] 2004 s/p CABG x3 Assessment: Last cath 2016: LM 100% ostial, LCx/RCA 100% ostial. Patent MCCONNELL-LAD, SVG-RPDA, SVG-OM1 Plan: ASA, coreg, lipitor - Cardiac resynchronization therapy defibrillator (SPINNING AND WINDING SUPERVISOR-D) in place History: BSX N119 COGNIS 100-D 01/05/11 Assessment: BiV pacing 100% Plan: Device check done - PAD (peripheral artery disease) ([facility]) History: Hx claudication Assessment: s/p remote LE stenting Plan: ASA, plavix - CKD (chronic kidney disease) stage 4, GFR 15-29 ml/min ([facility]) History: Baseline creat 2-2.2 Assessment: CKD stage 4, GFR 23 Plan: Monitor while diuresing - HTN (hypertension), benign History: On coreg 12.5 bid, lasix 40 at home Assessment: Fairly well controlled Plan: Continue current meds. Monitor while diuresing. Re- titrate coreg - Hyperlipidemia LDL goal <70 History: On lipitor 40 at home Assessment: LDL 44 Plan: Continue lipitor. - Diabetes mellitus type 2 with peripheral artery disease (HCC) History: On Insulin Assessment: A1c 5.8 Plan: BG uncontrolled here. 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 Waqar Encinas APRN.[employer] Pager [phone] (please see below for after hours communication) 08/25/2017 3:03 PM For communication after 5 pm on weekdays and after 12 pm on weekends, please page the following: - Clinical Cardiology patients on all floors: page [phone] - Other Cardiology patients on J5 and J6: page [phone] - Other Cardiology patients on J7 and J8: page [phone] CONSULT PROG Observed: 08/25/2017 Status: COMPLETED Source: [place] 7:55 AM [facility] REPOSITORY HNO ID: [id number] Author: Aretha Morales) Klaudia Service: Endocrinology Author Type: Nurse Practitioner Type: Consult Progress Note Filed: 08/25/2017 9:05 PM Note Text: DIABETES CARE TEAM NOTE SERVICE DATE: 08/25/2017 SERVICE TIME: 7:55 AM Subjective Summary of History from Prior Record: Consult Date: 08/24/2017 Subjective ? HPI: Ms. Kalyn Cain is a 67 year old female with a >30 year history of Diabetes Mellitus Type 2 hyperglycemia who was admitted on 08/19/2017 for evaluation of SOB + orthopnea Past medical history significant for CAD s/p CABG x 4 03/2004 cirrhosis d/t chronic hepatitis C, portal HTN, ? HF CKD stage 3. Patient does exercise. Last HbA1c was 5.8% on 08/23/2017 ( not accurate as patient have chronic macrocytic anemia). She has no family history of diabetes. She is followed by Dr. Ana Gutierrez ( [employer] reading [employer] teacher) at [facility] for her diabetes. ? DIABETIC COMPLICATIONS: Nephropathy: CKD stage 3 Neuropathy: Polyneuropathy CAD ? Pre-Admission DM Regimen: Preadmission oral agents: None Preadmission insulin regimen: Tresiba 60units Q am Novolog Sliding scale With meals starts with 10 units when BG before po intake is 150 mg/dL ? ? Self Monitoring Blood Glucose: Type of Monitor: Accucheck Frequency of Monitorin times a day and PRN BG Values: 100-200 Hypoglycemia: Yes, Frequency: none for A year but had BG in 11 and in 1500 and has been hospitalized for lows in past x3 and once for high 1500 which related that to one of meds that she was on Symptoms: Shakiness and Sweating Feel symptoms when BS is 100 mg/dL ? INTERVAL HPI: uneventful PERTINENT ROS: Constitutional:c/o fullness with meal intake Appetite:Intact GI:Denies N/V Objective PHYSICAL EXAM: BP (!) 110/49 Pulse 70 Temp 36.9 ?C (98.4 ?F) (Oral) Resp 18 Ht 162.6 cm (5' 4) Wt 106.2 kg (234 lb 3.2 oz) SpO2 96% BMI 40.20 kg/m? General Appearance:A+O x 3 Affect:Pleasant and cooperative Eyes:Sclerae non-icteric Abdomen:obese Edema:Lower extremity 1+, 2+ Laboratory Results: Glucose (mg/dL) Date Value 08/25/2017 105 Potassium (mmol/L) Date Value 08/25/2017 4.5 Sodium (mmol/L) Date Value 08/25/2017 139 Chloride (mmol/L) Date Value 08/25/2017 100 CO2 (mmol/L) Date Value 08/25/2017 28 Creatinine (mg/dL) Date Value 08/25/2017 1.99 BUN (mg/dL) Date Value 08/25/2017 45 Anion Gap (mmol/L) Date Value 08/25/2017 11 Calcium (mg/dL) Date Value 08/25/2017 8.9 ALT Date Value Ref Range Status 08/25/2017 7 7 - 38 U/L Final AST Date Value Ref Range Status 08/25/2017 11 (L) 13 - 35 U/L Final Hemoglobin (g/dL) Date Value 08/25/2017 8.1 Hematocrit (%) Date Value 08/25/2017 25.0 WBC (k/uL) Date Value 08/25/2017 4.96 Platelet Count (k/uL) Date Value 08/25/2017 70 Hemoglobin A1C (%) Date Value 08/23/2017 5.8 LV Ejection Fraction (%) Date Value 08/24/2017 37 Diet: Carb Control: 3--5 CARBS/MEAL (<200 MG CHOL / LOW SAT FAT) electrolyte 2 GN sodium Supplements: N/A Other Pertinent Medications: Steroids none Diabetes Management in Hospital Hospital BG values or ranges: ? Date AM LUNCH DINNER HS 3AM 08/23/2017 148 330(H120 103 258 Lantus 20 u 251 08/24/2017 263(H9) 289(H9) 228(H8+4) 256(H6) Lantus 15? 90-?105 08/25/2017? ?162(H6+2) Lantus 15 u 273(H6+6)? 219(H8+4)? 187? Impression/Recommendations: Patient with uncontrolled Diabetes Mellitus Type 2 hyperglycemia , who was admitted on 08/19/2017 for evaluation of SOB + orthopnea whom we have been consulted for glycemic control. SOB + orthopnea due to volume overload secondary to HF, Plan to move basal to am dosing, had Lantus 15 last night, BG stable through night thus will give only 15u this am. Also will change H to 6 AC for now. Patient transferred To [facility] cardiology for management of HF. Will monitor BG trends on full MDI insulin regimen and adjust plan accordingly. RECOMMENDATIONS: ? Change Basal Insulin: Lantus 15 units QAM ? Adjust Prandial Insulin: Humalog 6 units AC TID ? Supplemental Sliding Scale: Humalog Program #2 AC AND HS and 2 am ? Accuchecks: AC/HS and 2am ? Recommend As per Unit Dietitian ? Consult CDE regarding: DM Education including none ?1:06 PM BG >200 at lunch will increase H to 8 u with BRK. Also 8 with dinner. Lantus to 20 for tomorrow. Aretha Rudolph APRN.[employer] 6:30 PM BG high will increase H to 10 u AC. Aretha Rudolph APRN.CNP DM DISCHARGE PLAN: ? MDI insulin of Tresiba and Novolog Doses TBD ? Check blood sugars Four times a Day ? Diet: As per Unit Dietitian ? Exercise as prescribed by cardiology ? Follow up with pipe line inspector and computer project manager as recommended. ? Patient will need follow-up at with her home reading recovery teacher/PCP in 1-2 weeks after discharge. Prefer to follow locally ? Diabetes Care Team Hospital Discharge Help Line: [phone] ? SIGNATURE: Aretha Rudolph APRN.CNP PATIENT NAME: Kalyn Cain DATE: August 25, 2017 TIME: 7:55 AM PAGER/CONTACT #: [phone] CBC Collected: 08/25/2017 Status: F Source: [place] 5:19 AM [facility] REPOSITORY TYPE CODE TESTS RESULT OUT OF REFERENCE UNITS RANGE LAB WBC 3.70-11.00 k/uL WBC 4.96 LAB RBC 3.90-5.20 m/uL Low RBC 2.59 LAB HGB 11.5-15.5 g/dL Low Hemoglobin 8.1 LAB HCT 36.0-46.0 % Low Hematocrit 25.0 LAB MCV 80.0-100.0 fL MCV 96.5 LAB MCH 26.0-34.0 pG MCH 31.3 LAB MCHC 30.5-36.0 g/dL MCHC 32.4 LAB RDWCV 11.5-15.0 % RDW-CV 13.9 LAB PLTCT 150-400 k/uL Low Platelet Count 70 Result Comment: No clot detected. LAB MPV 9.0-12.7 fL MPV 11.6 LAB ABSNUC <0.01 k/uL Absolute nRBC <0.01 Performed By: #### CBC, PT, CMP, LIPB, TSH #### [facility] [address] [id number] PROTIME Collected: 08/25/2017 Status: F Source: [place] 5:19 AM [facility] REPOSITORY TYPE CODE TESTS RESULT OUT OF RANGE REFERENCE UNITS LAB PSEC 9.7-13.0 sec PT Sec 12.3 LAB INR 0.9-1.3 PT INR 1.2 Result Comment: Vitamin K Antagonist (VKA) Therapeutic Range: INR 2 to 3 (Target INR of 2.5) Note: For patients treated with VKA drugs, such as warfarin, the [place] [employer] Chest [employer]icians 2012 Guideline recommends a therapeutic INR range of 2 to 3 (target INR of 2.5). This recommendation includes high-risk patients with antiphospholipid syndrome with previous arterial or venous thromboembolism, current-generation mechanical or bioprosthetic aortic heart valve replacement. Note: Patients with mechanical aortic valve replacement and additional risk factors for thromboembolic events (atrial fibrillation, previous thromboembolism, LV dysfunction, hypercoagulable conditions) or an older generation mechanical AVR (i.e., ball in-Cage) or any mechanical MVR should have a INR therapeutic range of 2.5 to 3.5 (target INR of 3). Lana GH, et al. Chest 2012, 141:7S-47S Joce RA, et al. [facility] 2017, 70: 252-289 Performed By: #### CBC, PT, CMP, LIPB, TSH #### [facility] [address] [place], [place] [address] COMP METABOLIC PANEL Collected: 08/25/2017 Status: F Source: [place] 5:19 AM [facility] REPOSITORY TYPE CODE TESTS RESULT OUT OF REFERENCE UNITS RANGE LAB TP 6.3-8.0 g/dL Protein, Total 6.8 LAB ALB 3.9-4.9 g/dL Low Albumin 3.2 LAB CA 8.5-10.2 mg/dL Calcium, Total 8.9 LAB TBIL 0.2-1.3 mg/dL Bilirubin, Total 0.7 LAB ALKP 32-117 U/L Alkaline Phosphatase 79 LAB AST 13-35 U/L Low AST 11 LAB GLU 74-99 mg/dL Glucose High 105 Result Comment: The [place] Diabetes Association (ADA) provides guidance for cutoff values for fasting glucose and random glucose. The ADA defines fasting as no caloric intake for at least 8 hours. Fas ting plasma glucose results between 100 to 125 mg/dL indicate increased risk for diabetes (prediabetes). Fasting plasma glucose results greater than or equal to 126 mg/dL meet the criteria for diagnosis of diabetes. In the absence of unequivocal hyperglycemia, results should be confirmed by repeat testing. In a patient with classic symptoms of hyperglycemia or hyperglycemic crisis, random plasma glucose results greater than or equal to 200 mg/dL meet the criteria for diagnosis of diabetes. Reference: Standards of Medical Care in Diabetes 2016, [place] Diabetes Association. Diabetes Care. 2016.39(Suppl 1). LAB BUN 7-21 mg/dL BUN High 45 LAB CRET 0.58-0.96 mg/dL Creatinine High 1.99 LAB NA 136-144 mmol/L Sodium 139 LAB K 3.7-5.1 mmol/L Potassium 4.5 LAB CL 97-105 mmol/L Chloride 100 LAB CO2 22-30 mmol/L CO2 28 LAB AGAP 9-18 mmol/L Anion Gap 11 LAB ALT 7-38 U/L ALT 7 LAB GFRAA eGFR- Amer. 30 LAB GFRNAA . eGFR-All Other Races 25 Result Comment: eGFR (Estimated GFR) Units of measure: mL/min/1.73 meters squared eGFR is derived from the reexpressed MDRD Study equation using the following parameters: serum creatinine, age, gender and race. The creatinine assay has been calibrated to be traceable to IDMS. An eGFR <60 mL/min/1.73m2 for >3 months is consistent with chronic kidney disease. Refer to KDOQI guidelines for clinical interpretation. In patients with unstable renal function, e.g. those with acute kidney injury, the eGFR may not accurately reflect actual GFR. Performed By: #### CBC, PT, CMP, LIPB, TSH #### [facility] [address] [place], [place] [address] LIPID PANEL, BASIC Collected: 08/25/2017 Status: F Source: [place] 5:19 AM [facility] REPOSITORY TYPE CODE TESTS RESULT OUT OF REFERENCE UNITS RANGE LAB CHOL <200 mg/dL Cholesterol 94 Result Comment: <200 mg/dL, Desirable 200-239 mg/dL, Borderline high >239 mg/dL, High LAB TRIGLY <150 mg/dL Triglyceride 105 Result Comment: <150 mg/dL, Normal 150-199 mg/dL, Borderline high 200-499 mg/dL, High >499 mg/dL, Very high LAB HDL >39 mg/dL HDL-Cholesterol Low 29 Result Comment: 40-59 mg/dL, Acceptable >59 mg/dL, High: Negative risk factor for coronary heart disease <40 mg/dL, Low: Positive risk factor for coronary heart disease LAB LDL <100 mg/dL LDL-Cholesterol 44 Result Comment: <100 mg/dL, Optimal 100-129 mg/dL, Near optimal/above optimal 130-159 mg/dL, Borderline high 160-189 mg/dL, High >189 mg/dL, Very high Secondary prevention optimal LDL Cholesterol levels are recommended to be < 70 mg/dL LAB NONHDL <130 mg/dL Non HDL Cholesterol 65 Result Comment: <130 mg/dL, Optimal 130-159 mg/dL, Near optimal/above optimal 160-189 mg/dL, Borderline high 190-219 mg/dL, High >219 mg/dL, Very high Secondary prevention optimal non HDL Cholesterol levels are recommended to be < 100 mg/dL LAB FT hrs Fasting Time Unknown LAB VLDL <30 mg/dL VLDL Cholesterol 21 LAB TCHDL <5.10 TC:HDL Ratio 3.24 LAB LDLHDL <2.54 LDL:HDL Ratio 1.52 Result Comment: Reference: 1. National Cholesterol Education Program ATP III Guideline At-A-Glance Quick Desk Reference: National Heart, Lung, and Blood [place]. National Institutes of Health. 2001: NIH Publication No. 01-3305. 2. An International Atherosclerosis Society position paper: global recommendations for the management of dyslipidemia: executive summary, Atherosclerosis. 2014: 232(2):410-413. Performed By: #### CBC, PT, CMP, LIPB, TSH #### [facility] [employer] [address] [address] TSH Collected: 08/25/2017 Status: F Source: [place] 5:19 AM [facility] REPOSITORY TYPE CODE TESTS RESULT OUT OF RANGE REFERENCE UNITS LAB TSH 0.400-5.500 uU/mL TSH 1.990 Performed By: #### CBC, PT, CMP, LIPB, TSH #### [facility] [address] [place], [place] [address] NURSING PROG Observed: 08/24/2017 Status: COMPLETED Source: [place] 10:20 PM [facility] REPOSITORY HNO ID: [id number] Author: Abiodun (Rn) ROMÁN Winn Service: (none) Author Type: Registered Nurse Type: Nursing Progress Note Filed: 08/24/2017 10:20 PM Note Text: Admission/Transfer Note PATIENT NAME: Kalyn Cain Patient transferred to [facility] via bed in stable condition. Actions taken: Patient oriented to room, call light function, prescribed activities, Patient rights and Quiet at night. This note was completed by: Abiodun Winn RN CASE MANAGEM Observed: 08/24/2017 Status: COMPLETED Source: [place] 3:43 PM [facility] REPOSITORY HNO ID: [id number] Author: Quyen McduffieRnSulma Ansari RN Service: Care Management Author Type: Registered Nurse Type: Care Mgt Progress Note Filed: 08/24/2017 3:44 PM Note Text: CARE MANAGEMENT PROGRESS NOTE SERVICE DATE: 08/24/2017 SERVICE TIME: 3:43 PM LOS: 5 days Plan is transfer to [facility] cardiology to follow. Plan remain home with no needs. SIGNATURE: Quyen Ansari RN PATIENT NAME: Kalyn Cain DATE: August 24, 2017 TIME: 3:43 PM PAGER/CONTACT #: [phone] THERAPY NT Observed: 08/24/2017 Status: COMPLETED Source: [place] 2:29 PM [facility] REPOSITORY HNO ID: [id number] Author: Kajal Wilkes (Pt) Riya Service: Physical Therapy Author Type: Physical Therapist Type: Therapy (PT/OT/Speech/Resp) Filed: 08/24/2017 2:29 PM Note Text: PHYSICAL THERAPY MISSED VISIT SERVICE DATE: 08/24/2017 SERVICE TIME: 1347 to 1347 ROOM: [address] [place] [address] Attempted Treatment. Patient not seen due to Declined. Pt declined PT this afternoon due to fatigue. Will continue to follow. SIGNATURE: Kajal Ritter PT PATIENT NAME: Kalyn Cain DATE: August 24, 2017 TIME: 2:29 PM PAGER/CONTACT #: [phone] ASCITES SURVEY Observed: 08/24/2017 Status: F Source: [place] 2:01 PM [facility] REPOSITORY * * *Final Report* * * DATE OF EXAM: Aug 24 2017 2:01PM [facility] 1016 - ASCITES SURVEY / PROCEDURE REASON: Ascites * * * * Physician Interpretation * * * * LIMITED ABDOMEN ULTRASOUND HISTORY: Evaluate ascites for possible paracentesis. TECHNIQUE: Targeted sonography of the abdomen was performed. Images were obtained and stored in a permanent archive. RESULT: There is no ascites. IMPRESSION: NO ASCITES. Sample Coordinator: GISELLE Transcribe Date/Time: Aug 24 2017 2:17P Dictated by : ISABELL IVERSON JR, MD This examination was interpreted and the report reviewed and electronically signed by: ISABELL IVERSON JR, MD on Aug 24 2017 2:18PM EST [id number] CONSULT Observed: 08/24/2017 Status: COMPLETED Source: [place] 1:38 PM [facility] REPOSITORY HNO ID: [id number] Author: Aretha Morales) Klaudia Service: Endocrinology Author Type: Nurse Practitioner Type: Consults Filed: 08/24/2017 7:01 PM Note Text: INITIAL CONSULT ENDOCRINOLOGY SERVICE DATE: 08/24/2017 SERVICE TIME: 1:39 PM Requesting Provider: Chasidy Zavaleta Opinion/Advice Regarding: Management of Diabetes Mellitus Type 2 hyperglycemia Service: DCT (Diabetes Care Team) Subjective HPI: Ms. Kalyn Cain is a 67 year old female with a >30 year history of Diabetes Mellitus Type 2 hyperglycemia who was admitted on 08/19/2017 for evaluation of SOB + orthopnea Past medical history significant for CAD s/p CABG x 4 03/2004 cirrhosis d/t chronic hepatitis C, portal HTN, ? HF CKD stage 3. Patient does exercise. Last HbA1c was 5.8% on 08/23/2017 ( not accurate as patient have chronic macrocytic anemia). She has no family history of diabetes. She is followed by Dr. Ana Gutierrez ( [employer] reading recovery teacher) at [facility] for her diabetes. DIABETIC COMPLICATIONS: Nephropathy: CKD stage 3 Neuropathy: Polyneuropathy CAD Pre-Admission DM Regimen: Preadmission oral agents: None Preadmission insulin regimen: Tresiba 60units Q am Novolog Sliding scale With meals starts with 10 units when BG before po intake is 150 mg/dL Self Monitoring Blood Glucose: Type of Monitor: Accucheck Frequency of Monitorin times a day and PRN BG Values: 100-200 Hypoglycemia: Yes, Frequency: none for A year but had BG in 11 and in 1500 and has been hospitalized for lows in past x3 and once for high 1500 which related that to one of meds that she was on Symptoms: Shakiness and Sweating Feel symptoms when BS is 100 mg/dL No past medical history on file. PAST SURGICAL HISTORY Procedure Laterality Date - HYSTERECTOMY HX No family history on file. Social History Substance Use Topics - Smoking status: Never Smoker - Smokeless tobacco: Never Used - Alcohol use No MEDICATIONS: Prescriptions Prior to Admission: CALCIUM CARBONATE/VITAMIN D3 (VITAMIN D-3 ORAL) Take by mouth. Disp: Rfl: INSULIN DEGLUDEC (TRESIBA FLEXTOUCH U-100 SUBCUTANEOUS) Inject 40 Units subcutaneously twice daily. Disp: Rfl: GLUCAGON EMERGENCY KIT, HUMAN, 1 mg injection Disp: Rfl: ACCU-CHEK DISHA PLUS TEST STRP test strip USE 4 TIMES DAILY Disp: Rfl: 2 NOVOLOG FLEXPEN U-100 INSULIN 100 unit/mL inpn USE DIRECTED NEEDED SLIDING SCALE Disp: Rfl: 3 TRESIBA FLEXTOUCH U-200 200 unit/mL (3 mL) injection INJECT 50 UNIT(S) TWICE A DAY BY SUBCUTANEOUS ROUTE FOR 30 DAYS. Disp: Rfl: 5 furosemide (LASIX) 40 mg tablet Take 1 tablet by mouth once daily. Disp: Rfl: 0 elbasvir-grazoprevir (ZEPATIER) 50-100 mg tab Take 1 tablet by mouth once daily Disp: 28 tablet Rfl: 2 Not Taking at Unknown time ramipril (ALTACE) 5 mg capsule Take 5 mg by mouth once daily. Disp: Rfl: promethazine (PHENERGAN) 25 mg tablet Take 25 mg by mouth every 6 hours as needed. Disp: Rfl: HYDROcodone-acetaminophen (NORCO) 5-325 mg per tablet Take 1 tablet by mouth every 6 hours as needed. Disp: Rfl: levothyroxine (SYNTHROID) 137 mcg tablet Take 137 mcg by mouth daily before breakfast. Disp: Rfl: clopidogrel (PLAVIX) 75 mg tablet Take 75 mg by mouth once daily. Disp: Rfl: atorvastatin (LIPITOR) 40 mg tablet Take 40 mg by mouth once daily. Disp: Rfl: insulin aspart (NOVOLOG) 100 units/ml Inject subcutaneously every 6 hours. Disp: Rfl: aspirin, enteric coated (ASPIRIN, ENTERIC COATED) 81 mg EC tablet Take 81 mg by mouth once daily. Disp: Rfl: carvedilol (COREG) 12.5 mg tablet Take 12.5 mg by mouth twice daily with meals. Disp: Rfl: ferrous sulfate (IRON) 325 mg (65 mg iron) tablet Take 325 mg by mouth daily with breakfast. Disp: Rfl: gabapentin (NEURONTIN) 300 mg capsule Take 300 mg by mouth twice daily. Disp: Rfl: spironolactone (ALDACTONE) 25 mg tablet Take 25 mg by mouth once daily. Disp: Rfl: pantoprazole DR (PROTONIX) 20 mg tablet Take 20 mg by mouth once daily. Disp: Rfl: Current hospital medications: insulin glargine 20 Units pen (long acting) (LANTUS SOLOSTAR, BASAGLAR) 20 Units SUBCUTANEOUS AT BEDTIME carvedilol 6.25 mg tab(s) (COREG) 6.25 mg ORAL BID w MEALS traMADol 50 mg tab(s) (ULTRAM) 50 mg ORAL q 6 H PRN 0.9% NaCl 3-5 mL 3-5 mL INTRAVENOUS q 12 H heparin 5,000 Units injection 5,000 Units SUBCUTANEOUS q 12 H gabapentin 300 mg cap(s) (NEURONTIN) 300 mg ORAL BID atorvastatin 40 mg tab(s) (LIPITOR) 40 mg ORAL DAILY aspirin, enteric coated 81 mg tab(s) (ASPIRIN, ENTERIC COATED) 81 mg ORAL DAILY AT 9 PM clopidogrel 75 mg tab(s) (PLAVIX) 75 mg ORAL DAILY pantoprazole DR 20 mg tab(s) (PROTONIX) 20 mg ORAL DAILY levothyroxine (SYNTHROID) tab(s) 137 mcg 137 mcg ORAL BEFORE BREAKFAST DAILY dextrose 40 % 15 g 15 g ORAL PRN glucagon 1 mg injection (GLUCAGEN) 1 mg INTRAMUSCULAR PRN dextrose 50% in water 25 mL syringe 12.5 g INTRAVENOUS PRN insulin lispro injection (rapid acting) (HumaLOG) SUBCUTANEOUS w MEALS ALLERGIES Allergen Reactions - Nexium [Esomeprazol* Itching COMPLETE REVIEW OF SYSTEMS: WEIGHT: Fluctuates EYES: Cataracts HYDRATION: No polydypsia or thirst CARDIAC: Dyspnea and Edema RESPIRATORY: Negative for cough, wheezing GI: no nausea, fullness, vomiting, diarrhea, constipation, : frequency on diuretic SKIN: normal MUSCULOSKELETAL: + general arthritis NERVOUS SYSTEM: numbness of the hands and numbness of the feet ALL OTHER SYSTEMS: normal Last Eye Exam: yearly Objective PHYSICAL EXAM: BP 118/56 Pulse 72 Temp 36.9 ?C (98.5 ?F) (Oral) Resp 16 Ht 162.6 cm (5' 4) Wt 105.8 kg (233 lb 4 oz) SpO2 95% BMI 40.04 kg/m? Body mass index is 40.04 kg/m?. Appearance: Well appearing, alert, in no acute distress, obese, well-hydrated, well nourished. Eyes: conjunctiva and sclera normal Neck: Supple Heart: RRR without murmur Lungs diminished Abdomen bowel sounds, obese and distended/vascular changes Extremities: + edema, and skin discoloration Neuro: Awake, alert and oriented x 3, No involuntary motions. Feet: Shoes and socks removed, No deformities, ulcers, calluses Skin: Color, texture, turgor normal. No rashes or lesions Laboratory Results: Hemoglobin (g/dL) Date Value 08/24/2017 8.6 Hematocrit (%) Date Value 08/24/2017 25.9 WBC (k/uL) Date Value 08/24/2017 4.29 Platelet Count (k/uL) Date Value 08/24/2017 70 Potassium (mmol/L) Date Value 08/24/2017 5.0 Sodium (mmol/L) Date Value 08/24/2017 134 Creatinine (mg/dL) Date Value 08/24/2017 2.10 BUN (mg/dL) Date Value 08/24/2017 49 Glucose (mg/dL) Date Value 08/24/2017 251 PT INR (no units) Date Value 08/24/2017 1.2 NT Pro BNP (pg/mL) Date Value 08/19/2017 3,472 Lipids: No results found for: CHOL, HDL, LDL, TG Albumin (g/dL) Date Value 08/24/2017 3.2 (L) Bilirubin, Total (mg/dL) Date Value 08/24/2017 0.7 Bilirubin, Conjug (mg/dL) Date Value 08/19/2017 <0.2 Alkaline Phosphatase (U/L) Date Value 08/24/2017 82 AST (U/L) Date Value 08/24/2017 13 ALT (U/L) Date Value 08/24/2017 11 Protein, Total (g/dL) Date Value 08/24/2017 7.1 LV Ejection Fraction (%) Date Value 08/24/2017 37 Hemoglobin A1C (%) Date Value 08/23/2017 5.8 Diabetes Management in Hospital Hospital BG values or ranges: Date AM LUNCH DINNER HS 3AM 08/23/2017 148 330(H120 103 258 Lantus 20 u 251 08/24/2017 263(H9) 289(H9) 228(H8+4) Diabetes Management Prior to the Consultation/HPI: Lantus 20 units HS SSC Humalog #3 AC only Other Pertinent Medications: Continuous Infusion: none Steroids:none Diet: Carb Control: 3--5 CARBS/MEAL (<200 MG CHOL / LOW SAT FAT) and electrolyte 2 GM sodium Tube Feeding: No Supplements: no Impression/Recommendations Patient with uncontrolled Diabetes Mellitus Type 2 hyperglycemia , who was admitted on 08/19/2017 for evaluation of SOB + orthopnea whom we have been consulted for glycemic control. SOB + orthopnea due to volume overload secondary to HF, RECOMMENDATIONS: ? Change Basal Insulin: Lantus 25 units QAM give 15 tonight then move to am dosing ? Start Prandial Insulin: Humalog 8 units AC TID ? Change Supplemental Sliding Scale: Humalog Program #2 AC AND HS and 2 am ? Accuchecks: AC/HS and 3 AM ? Recommend As per Unit Dietitian ? Consult CDE regarding: DM Education including none DM DISCHARGE PLAN: ? MDI insulin of Tresiba and Novolog Doses TBD ? Check blood sugars Four times a Day ? Diet: As per Unit Dietitian ? Exercise as prescribed by cardiology/ primary team ? Follow up with pipe line inspector and computer project manager as recommended. ? Patient will need follow-up at with her home reading recovery teacher/PCP in 1-2 weeks after discharge. Prefer to follow locally ? Diabetes Care Team Hospital Discharge Help Line: [phone] SIGNATURE: Aretha Rudolph APRN.CNP PATIENT NAME: Kalyn Cain DATE: August 24, 2017 TIME: 1:39 PM PAGER/CONTACT #: [phone] PROGRESS Observed: 08/24/2017 Status: COMPLETED Source: [place] 12:43 PM [facility] REPOSITORY HNO ID: [id number] Author: Chasidy Zavaleta Service: Cardiovascular Medicine Author Type: Physician Type: Progress Notes Filed: 08/24/2017 4:53 PM Note Text: [facility]IC[facility] PROGRESS NOTE Kalyn Aldrichpaulette [phone] PRIMARY SERVICE: HOSPITAL DAY: # 5 INTERVAL HISTORY Is tired today States fluid usually does not go to her abdomen Rhythm: SR Intake/Output Summary (Last 24 hours) at 08/24/17 1245 Last data filed at 08/24/17 1115 Gross per 24 hour Intake 940 ml Output 2300 ml Net -1360 ml EKG: Most recent reviewed TELE: most recent recordings reviewed CXR: most recent image reviewed, most recent report reviewed Echocardiogram: most recent report reviewed PHYSICAL EXAM: BP 118/56 Pulse 72 Temp 36.9 ?C (98.5 ?F) (Oral) Resp 16 Ht 162.6 cm (5' 4) Wt 105.8 kg (233 lb 4 oz) SpO2 95% BMI 40.04 kg/m? Neuro: AANDO x 3 moves all extremities with no apparent weakness CV: +JVP at 90degrees RRR without murmur, gallop, or rubs. No ectopy., heart sounds distant Resp: fine crackles and diminished breath sounds Abd: +BS x4 Skin: skin color, texture, turgor normal, no rashes or lesions Ext: no edema MEDICATIONS Current hospital medications: insulin glargine 20 Units pen (long acting) (LANTUS SOLOSTAR, BASAGLAR) 20 Units SUBCUTANEOUS AT BEDTIME carvedilol 6.25 mg tab(s) (COREG) 6.25 mg ORAL BID w MEALS traMADol 50 mg tab(s) (ULTRAM) 50 mg ORAL q 6 H PRN 0.9% NaCl 3-5 mL 3-5 mL INTRAVENOUS q 12 H heparin 5,000 Units injection 5,000 Units SUBCUTANEOUS q 12 H gabapentin 300 mg cap(s) (NEURONTIN) 300 mg ORAL BID atorvastatin 40 mg tab(s) (LIPITOR) 40 mg ORAL DAILY aspirin, enteric coated 81 mg tab(s) (ASPIRIN, ENTERIC COATED) 81 mg ORAL DAILY AT 9 PM clopidogrel 75 mg tab(s) (PLAVIX) 75 mg ORAL DAILY pantoprazole DR 20 mg tab(s) (PROTONIX) 20 mg ORAL DAILY levothyroxine (SYNTHROID) tab(s) 137 mcg 137 mcg ORAL BEFORE BREAKFAST DAILY dextrose 40 % 15 g 15 g ORAL PRN glucagon 1 mg injection (GLUCAGEN) 1 mg INTRAMUSCULAR PRN dextrose 50% in water 25 mL syringe 12.5 g INTRAVENOUS PRN insulin lispro injection (rapid acting) (HumaLOG) SUBCUTANEOUS w MEALS DATA Recent Labs 08/24/17 0450 08/23/17 0611 08/22/17 0505 WBC 4.29 4.84 5.11 HB 8.6* 8.4* 8.3* HCT 25.9* 25.9* 25.4* PLT 70* 75* 66* Recent Labs 08/24/17 0450 08/23/17 0611 08/22/17 0505 NA 134* 136 137 K 5.0 4.8 4.6 CO2 25 26 24 BUN 49* 45* 42* CREAT 2.10* 2.18* 2.04* GLUC 251* 116* 53* ASSESSMENT AND PLAN Presentation/Indication for admission/procedure: Hypervolemia, unspecified hypervolemia type [E87.70] LVEF: 37 RVEF: low normal Cards: Madai Cath: LM 100% ostial, LCx/RCA 100% ostial. 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 Pearson note) c/b portal HTN, EV (EGD 05/12 very small EV, on Coreg), 2003 s/p CABGx3 (03/2004 SVG to Lcx, SVG to RCA and MCCONNELL graft to the LAD), ICM s/p CRTD placement (12/2010) (On ASA and Plavix), PAD s/p left lower extremity stenting (on ASA and Plavix) HFrEF (EF=40%), DMT2 (on insulin) and CKD stage 3b Procedure/OR performed (including complications): Echocardiogram Brief Hospital Course/Narrative: Kalyn Cain is a 67 year old female pmh of HCV cirrhosis MELD Na-14 (Tx w/ Zepatier x12 weeks, eradicated per Dr. Pearson note) c/b portal HTN, EV (EGD 05/12 very small EV, on Coreg), [place] 2004 s/p CABGx3 (03/2004 SVG to Lcx, SVG to RCA and MCCONNELL graft to the LAD), ICM s/p CRTD placement (12/2010) (On ASA and Plavix), PAD s/p left lower extremity stenting (on ASA and Plavix) HFrEF (EF=40%), DMT2 (on insulin) and CKD stage 3b who presented to the ED due to SOB. Follows with proposition player Dr. Aj in [place] who is with [facility]. Issues to communicate: Lasix 40 IV daily Dry weight 230lb Problem Acute On Chronic Combined Systolic and Diastolic Chf (Congestive Heart Failure) ([facility]) History: Acute decompensated systolic HF Assessment: Moderate volume overload. Dry weight 230lb. Warm and wet Plan: Lasix 40mg IV daily, coreg. Resume altace, aldactone when able Heart Failure With Reduced Ejection Fraction ([facility]) Coronary Artery Disease Involving [place] Coronary Artery of [place] Heart Without Angina Pectoris History: [place] 2003 s/p CABG x3 Assessment: Last cath 2016: LM 100% ostial, LCx/RCA 100% ostial. Patent MCCONNELL-LAD, SVG-RPDA, SVG-OM1 Plan: ASA, coreg, lipitor Cardiac Resynchronization Therapy Defibrillator (Pharmacist-D) in Place History: BSX N119 COGNIS 100-D 01/05/11 Assessment: BiV pacing 100% Plan: Device check done Pad (Peripheral Artery Disease) ([facility]) History: Hx claudication Assessment: s/p remote LE stenting Plan: ASA, plavix Ckd (Chronic Kidney Disease) Stage 4, Gfr 15-29 Ml/Min ([facility]) History: Baseline creat 2-2.2 Assessment: CKD stage 4, GFR 23 Plan: Monitor while diuresing Htn (Hypertension), Benign History: On coreg 12.5 bid, lasix 40 at home Assessment: Fairly well controlled Plan: Continue current meds. Monitor while diuresing. Re- titrate coreg Hyperlipidemia Ldl Goal <70 History: On lipitor 40 at home Assessment: No LDL in epic Plan: Continue lipitor. LDL in am Diabetes Mellitus Type 2 With Peripheral Artery Disease (Hcc) History: On Insulin Assessment: A1c 5.8 Plan: BG uncontrolled here. 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 Renay Dockery Cardiovascular Medicine Nurse Practitioner Pager [phone] (please see below for after hours communication) 08/24/2017 12:45 PM For communication after 5 pm on weekdays and after 12 pm on weekends, please page the following: - Clinical Cardiology patients on all floors: page [phone] - Other Cardiology patients on J5 and J6: page [phone] - Other Cardiology patients on J7 and J8: page [phone] [facility] STAFF PHYSICIAN NOTE OF PERSONAL INVOLVEMENT IN CARE I have reviewed the progress note obtained and documented by the nurse practitioner and I personally participated in the grady components. I have discussed the case and management of the patient's care. The following comments revise or confirm relevant grady components of their note. IMPRESSION/PLAN: This is a 67 year old female who is being transferred from hepatology service to cardiology service for further management of acute on chronic systolic and diastolic HF. PMHx Cirrhosis d/t chronic hepatitis C (Tx w/ Zepatier x12 weeks, eradicated per Dr. Pearson note), disease c/b portal HTN, CAD s/p CABG x4 (03/2004), h/o [place] s/p defib placement, on ASA AND plavix,DMT2,CKD Ofjsu9d, and-Chronic macrocytic anemia. Agree with IV diuretics. May need RHC and ischemic evaluation. Last [facility] '16 with severe CAD [place] vessels and + patent grafts Chasidy Zavaleta MD August 24, 2017 4:50 PM PT ED Observed: 08/24/2017 Status: COMPLETED Source: [place] 10:20 AM [facility] REPOSITORY O ID: [id number] Author: Cindi Rios Service: Diabetes Education Author Type: Registered Dietitian Type: Patient Education Filed: 08/24/2017 10:25 AM Note Text: PATIENT EDUCATION DIABETES Patient does not need any DM discharge scripts See 08/23/17: Cindi Rios diabetes education note Progress note; Advised patient to use lancets only once to minimize bruising on finger tips. Patient to also use sides of fingers and palms of hand. Reviewed updated MDI regime; lantus/tresiba at 9pm and reviewed current correction of novolog/humalog at meals. Patient stated had no questions. Patient to be transferred to [facility] ; cardiology; will follow with updated dm regime. PATIENT NAME: Kalyn Cain PATIENT LOCATION: [place] [address]/[place] [address] READINESS TO LEARN COGNITIVE ABILITY: Alert and oriented MOTIVATION TO LEARN: Interested FAMILY SUPPORT: High - Very involved in pt care INSTRUCTION PROVIDED TO: Patient and family member PATIENT LEARNS BEST BY: Individual Instruction Written Instruction - Hand-outs Verbal Instruction Demonstration FACTORS AFFECTING LEARNING: Financial Factors: tresiba is costly Unable to assess PHYSICAL LIMITATIONS AFFECTING LEARNING: Pain , Fatigue and Limited Mobility LEARNING RESPONSE DIAGNOSIS: Diabetes PATIENT/FAMILY RESPONSE: Verbalizes understanding of: EQUIPMENT USE: Blood Glucose Meter Insulin Pen MEDICAL REGIMEN-Importance of following prescribed medical regimen SELF INJECTION- Correct procedure to administer self injection using clean technique SYMPTOM MANAGEMENT-Correct actions to take to manage symptoms associated with a blood glucose below 70 mg/dL or above 150 mg/dL WORSENING CONDITION-Notify physician or provider if blood glucose is above 150 mg/dL for one week, above 300 mg/dL for 2 consecutive readings or above 400 mg/dL for one reading METHOD OF INSTRUCTION: Individual instruction Written instruction - handouts Verbal instruction FOLLOW-UP PLAN: Recommend - Recommend continued instruction and follow up as directed INSTRUCTIONAL AIDS USED: My diabetes blueprint SUPPLEMENTAL MATERIAL PROVIDED TO PATIENT: Log book REFERRAL (RECOMMENDATION): Primary Care Provider Electronically Signed By: Cindi Rios RD CDE MPH beeper; [id number] Time = 30 minutes PROGRESS Observed: 08/24/2017 Status: COMPLETED Source: [place] 9:47 AM [facility] REPOSITORY HNO ID: [id number] Author: Marika (Rn) ROMÁN Hale Service: Cardiovascular Medicine Author Type: Registered Nurse Type: Progress Notes Filed: 08/24/2017 9:47 AM Note Text: 08/24/2017 9:47 AM Order reviewed by nurse:yes Medications: Definity - dosage 1.5 ml Reaction: No PROGRESS Observed: 08/24/2017 Status: COMPLETED Source: [place] 4:59 AM [facility] REPOSITORY HNO ID: [id number] Author: Marquis White Service: Hepatology Author Type: Physician Type: Progress Notes Filed: 08/24/2017 7:37 AM Note Text: HEPATOLOGY GREEN SERVICE PROGRESS NOTE For any questions or concerns [place] [phone] Please [place] [phone] after 5PM. SERVICE DATE: 08/24/2017 SERVICE TIME: 4:59 AM PLAN FOR TODAY: - No acute events overnight - Awaiting AM labs - Transfer to Cardiology service when bed is available - Continue diuresis and monitor renal function and UOP - Consider increasing Coreg to 12.5 BID INTERVAL EVENTS: - Overnight Events: None - On am interview major issues: None - Lab review: Mildly Improving Cr - Recommendations by consultants: Seen by cardiology, accepted for transfer to cardiology service for optimization of heart failure regimen MEDICATIONS: Current hospital medications: insulin glargine 20 Units pen (long acting) (LANTUS SOLOSTAR, BASAGLAR) 20 Units SUBCUTANEOUS AT BEDTIME carvedilol 6.25 mg tab(s) (COREG) 6.25 mg ORAL BID w MEALS traMADol 50 mg tab(s) (ULTRAM) 50 mg ORAL q 6 H PRN 0.9% NaCl 3-5 mL 3-5 mL INTRAVENOUS q 12 H heparin 5,000 Units injection 5,000 Units SUBCUTANEOUS q 12 H gabapentin 300 mg cap(s) (NEURONTIN) 300 mg ORAL BID atorvastatin 40 mg tab(s) (LIPITOR) 40 mg ORAL DAILY aspirin, enteric coated 81 mg tab(s) (ASPIRIN, ENTERIC COATED) 81 mg ORAL DAILY AT 9 PM clopidogrel 75 mg tab(s) (PLAVIX) 75 mg ORAL DAILY pantoprazole DR 20 mg tab(s) (PROTONIX) 20 mg ORAL DAILY levothyroxine (SYNTHROID) tab(s) 137 mcg 137 mcg ORAL BEFORE BREAKFAST DAILY dextrose 40 % 15 g 15 g ORAL PRN glucagon 1 mg injection (GLUCAGEN) 1 mg INTRAMUSCULAR PRN dextrose 50% in water 25 mL syringe 12.5 g INTRAVENOUS PRN insulin lispro injection (rapid acting) (HumaLOG) SUBCUTANEOUS w MEALS PHYSICAL EXAM: VITAL SIGNS 08/23/17 1645 08/23/17 1800 08/23/17 1844 08/23/17 2111 BP: 110/56 (!) 119/37 (!) 126/44 Pulse: (!) 56 (!) 56 71 Resp: 16 16 Temp: 36.2 ?C (97.2 ?F) 36.6 ?C (97.8 ?F) TempSrc: Oral Oral SpO2: 97% 97% Weight: Height: Temp (24hrs), Av.5 ?C (97.7 ?F), Min:36.2 ?C (97.2 ?F), Max:37 ?C (98.6 ?F) INTAKE/OUTPUT Intake/Output Summary (Last 24 hours) at 08/24/17 045 Last data filed at 08/24/17 0106 Gross per 24 hour Intake 820 ml Output 2800 ml Net -1980 ml General: Awake and alert, in no distress, cooperative Neck: Supple without JVD or Lymphadenopathy Cardiac: RRR, S1S2 with no MGR Lungs: Clear to auscultation bilaterally Abdomen: Soft non-tender, non-distended, normal bowel sounds Extremities: No deformities, edema, clubbing or skin discoloration. LAB DATA: CBC: Recent Labs 08/23/17 0608/22/17 0505 08/21/17 0632 08/20/17 0401 08/19/17 1511 WBC 4.84 5.11 4.62 5.55 6.00 HB 8.4* 8.3* 8.6* 8.4* 9.9* HCT 25.9* 25.4* 26.5* 26.4* 30.8* PLT 75* 66* 67* 69* 80* MCV 97.4 98.8 100.0 100.8* 102.3* RDWCV 13.8 13.8 14.0 14.0 13.8 NEUTP -- -- -- -- 71.7 ABSNEUT -- -- -- -- 4.28 LYMPHP -- -- -- -- 16.3 MONOP -- -- -- -- 5.2 EODINP -- -- -- -- 6.0 COAG: Recent Labs 08/24/17 0450 08/23/17 0611 08/22/17 0505 08/21/17 0632 08/20/17 0401 08/19/17 1511 INR 1.2 1.2 1.2 1.2 1.2 1.2 BMP: Recent Labs 08/24/17 0450 08/23/17 0611 08/22/17 0505 08/21/17 0632 08/20/17 0401 08/19/17 1511 GLUC 251* 116* 53* 57* 104* 94 NA 134* 136 137 140 138 139 K 5.0 4.8 4.6 4.3 4.1 4.2 CHLOR 97 97 100 102 100 100 CO2 25 26 24 26 25 27 ANION 12 13 13 12 13 12 BUN 49* 45* 42* 39* 36* 35* CREAT 2.10* 2.18* 2.04* 1.92* 1.85* 1.78* CHEM: Recent Labs 08/24/17 0450 08/23/17 0611 08/22/17 0505 08/21/17 0632 08/20/17 0401 08/19/17 1511 ALB 3.2* 3.5* 3.4* 3.0* 3.0* 3.9 TPROT 7.1 7.3 7.0 7.0 6.8 8.2* CA 8.9 8.9 8.6 8.7 9.0 9.5 HEPATIC: Recent Labs 08/23/17 0611 08/22/17 0505 08/21/17 0632 08/20/17 0401 08/19/17 1511 ALKPHOS 83 77 77 78 89 ALT 8 9 8 8 9 AST 13 14 13 15 16 TBILI 0.7 0.7 0.7 0.8 0.7 URINALYSIS:No results for input(s): PH, SPGR, UGLUC, UBILI, UKET, UHB, UPROT, UROBIL, UWBC, SSA in the last 168 hours. Invalid input(s): NITR CARDIAC: Recent Labs 08/20/17 0856 08/20/17 0400 08/19/17 1511 TROPT <0.010 <0.010 <0.010 PBNP -- -- 3,472* ASSESSMENT AND PLAN: Mrs. Kalyn Cain is a 67 yo female w/ PMHx Cirrhosis d/t chronic hepatitis C, disease c/b portal HTN and EV, CAD s/p CABG x4 (03/2004), h/o [place] s/p defib placement (on ASA AND plavix), HF(EF 40%, on lasix 40mg BID), DMT2, CKD [id number], macrocytic anemia who presents with ? #Volume overload CXR w/ mild interstitial edema in ED HDS, O2 sat 99% RA, non-pitting pedal edema NTpBNP 3472, up from 2700 on 08/01 EKG: BiV paced, no ST segment abnormalities Etiology: mild CHF exacerbation? vs. volume overload 2/2 cirrhosis? (unlikely w/ normal LFTs, albumin) Echo 08/22 shows EF 40%, grade III diastolic dysfunction, low normal RV systolic function. Symptoms most consistent with acute exacerbation of combined systolic and diastolic heart failure.? Plan: -diuresis IV lasix 40mg BID, titrate based on volume status -Strict I/Os -Daily weights -Monitor SpO2 -Transfer to Cardiology service ? #Chest Pressure Mid-sternum, wrapping around to back NTpBNP 3472, up from 2700 on 08/01 EKG: BiV paced, no ST segment abnormalities CXR w/ mild interstitial edema in ED Etiology: interstitial edema vs. increased pressure from abdominal distension, unlikely ACS w/ unchanged EKG, negative troponin Plan: -Monitor for worsening sxs ? #HCV Cirrhosis HCV treated w/ Zepatier x12 weeks, eradicated per Dr. Pearson note Disease c/b portal HTN CT A/P (08/19): cirrhotic morphology ? #Elevated D-dimer (670) -no tachycardia, no hypotension, no hypoxia -in setting of CKD and cirrhosis and possible CHF -obtained for chest pressure ? Chronic Medical conditions #HTN - discontinue ramipril due to worsening creatinine (08/23) #DMT2 -On tresiba 60units in AM w/ Novolog SSI Plan: Lantus 20U at bedtime w/ SSI #Hypothyroidism -Continue levothyroxine. #CAD s/p CABG x4 (03/2004), h/o [place] - continue ASA, plavix #CKD Stage 4 ? Creatinine Date Value Ref Range Status 08/24/2017 2.10 (H) 0.58 - 0.96 mg/dL Final 08/23/2017 2.18 (H) 0.58 - 0.96 mg/dL Final 08/22/2017 2.04 (H) 0.58 - 0.96 mg/dL Final 08/21/2017 1.92 (H) 0.58 - 0.96 mg/dL Final Plan: -Uptredning creatinine. -Discontinue ramipril. -Strict I/O -Avoid nephrotoxic agents ? MAINTENANCE: # Diet - Electrolyte AND carb controlled # VTE PPx - SubQ Heparin 5000U q12h # Dispo Planning - Pending Lines, Drains, and Airways Line Peripheral 08/23/17 1041 Right Wrist 20 Gauge less than 1 day This note is not final until staffed by the attending physician and authenticated by responsible provider. Gladys Martino MD Internal Medicine Resident PGY-1 Pager# [phone] August 24, 2017 4:59 AM Patient examined. Team notes reviewed and agree with findings and plan. Grady clinical findings were confirmed at the bedside. Discussed with patient and team, issues, options and plans. In brief, 67 year old female with HCV cirrhosis, portal hypertension, esophageal varices, CAD, admitted with worsening shortness of breath, orthopnea, renal dysfunctioin . Major issues today: shortness of breath, no oliguria, no gi bleeding Medications reviewed ROS: No headache, visual, auditory symptoms. No chest pain, no shortness of breath, cough or wheezing. No abdominal pain, mild abd distention. No gi bleeding. No urinary symptoms. No loss of consciousness. Physical examination; No cervical lymphadenopathy HEENT- no thyroid enlargement no skin rash VSS, afebrile CVS: S1S2 normal, no murmurs RS: Clear to auscultation, no crackles or rhonchi PA: Soft, no tenderness, mild distension, bowel sounds normal MANAGER PROPERTY: Alert, oriented x3. moves all 4 extremities, plantars downgoing, no flap Ext: 1+ edema. No calf tenderness Labs: Reviewed CBC, Coags, BMP, Mg, Phos Recent Labs 08/24/17 0450 08/23/17 0611 08/22/17 0505 WBC 4.29 4.84 5.11 HB 8.6* 8.4* 8.3* HCT 25.9* 25.9* 25.4* PLT 70* 75* 66* INR 1.2 1.2 1.2 NA 134* 136 137 K 5.0 4.8 4.6 CHLOR 97 97 100 CO2 25 26 24 BUN 49* 45* 42* CREAT 2.10* 2.18* 2.04* GLUC 251* 116* 53* CA 8.9 8.9 8.6 Liver Function, Amylase, AND Lipase Recent Labs 08/24/17 0450 08/23/17 0611 08/22/17 0505 TPROT 7.1 7.3 7.0 ALB 3.2* 3.5* 3.4* ALT 11 8 9 AST 13 13 14 ALKPHOS 82 83 77 TBILI 0.7 0.7 0.7 MELD-Na score: 18 at 08/24/2017 4:50 AM MELD score: 16 at 08/24/2017 4:50 AM Calculated from: Serum Creatinine: 2.10 mg/dL at 08/24/2017 4:50 AM Serum Sodium: 134 mmol/L at 08/24/2017 4:50 AM Total Bilirubin: 0.7 mg/dL (Rounded to 1) at 08/24/2017 4:50 AM INR(ratio): 1.2 at 08/24/2017 4:50 AM Age: 67 years Plan: 1. Orthopnea better, on diuretics, renal dysfunctoin persists 2.Cardiology input appreciated 3.No active liver issues, may consider transfer to cardiology service Marquis White MD Staff Physician Gastroenterology and Hepatology PROTIME Collected: 08/24/2017 Status: F Source: [place] 4:50 AM [facility] REPOSITORY TYPE CODE TESTS RESULT OUT OF RANGE REFERENCE UNITS LAB PSEC 9.7-13.0 sec PT Sec 12.4 LAB INR 0.9-1.3 PT INR 1.2 Result Comment: Vitamin K Antagonist (VKA) Therapeutic Range: INR 2 to 3 (Target INR of 2.5) Note: For patients treated with VKA drugs, such as warfarin, the [place] [employer]icians 2012 Guideline recommends a therapeutic INR range of 2 to 3 (target INR of 2.5). This recommendation includes high-risk patients with antiphospholipid syndrome with previous arterial or venous thromboembolism, current-generation mechanical or bioprosthetic aortic heart valve replacement. Note: Patients with mechanical aortic valve replacement and additional risk factors for thromboembolic events (atrial fibrillation, previous thromboembolism, LV dysfunction, hypercoagulable conditions) or an older generation mechanical AVR (i.e., ball in-Cage) or any mechanical MVR should have a INR therapeutic range of 2.5 to 3.5 (target INR of 3). Lana VIGIL, et al. Chest 2012, 141:7S-47S Joce RA, et al. [facility] 2017, 70: 252-289 Performed By: #### PT, CMP, CBC #### [facility] [address] [place], [place] [address] COMP METABOLIC PANEL Collected: 08/24/2017 Status: F Source: [place] 4:50 AM [facility] REPOSITORY TYPE CODE TESTS RESULT OUT OF REFERENCE UNITS RANGE LAB TP 6.3-8.0 g/dL Protein, Total 7.1 LAB ALB 3.9-4.9 g/dL Low Albumin 3.2 LAB CA 8.5-10.2 mg/dL Calcium, Total 8.9 LAB TBIL 0.2-1.3 mg/dL Bilirubin, Total 0.7 LAB ALKP 32-117 U/L Alkaline Phosphatase 82 LAB AST 13-35 U/L AST 13 LAB GLU 74-99 mg/dL Glucose High 251 Result Comment: The [place] Diabetes Association (ADA) provides guidance for cutoff values for fasting glucose and random glucose. The ADA defines fasting as no caloric intake for at least 8 hours. Fas ting plasma glucose results between 100 to 125 mg/dL indicate increased risk for diabetes (prediabetes). Fasting plasma glucose results greater than or equal to 126 mg/dL meet the criteria for diagnosis of diabetes. In the absence of unequivocal hyperglycemia, results should be confirmed by repeat testing. In a patient with classic symptoms of hyperglycemia or hyperglycemic crisis, random plasma glucose results greater than or equal to 200 mg/dL meet the criteria for diagnosis of diabetes. Reference: Standards of Medical Care in Diabetes 2016, [place] Diabetes Association. Diabetes Care. 2016.39(Suppl 1). LAB BUN 7-21 mg/dL BUN High 49 LAB CRET 0.58-0.96 mg/dL Creatinine High 2.10 LAB NA 136-144 mmol/L Low Sodium 134 LAB K 3.7-5.1 mmol/L Potassium 5.0 LAB CL 97-105 mmol/L Chloride 97 LAB CO2 22-30 mmol/L CO2 25 LAB AGAP 9-18 mmol/L Anion Gap 12 LAB ALT 7-38 U/L ALT 11 LAB GFRAA eGFR- Amer. 28 LAB GFRNAA . eGFR-All Other Races 23 Result Comment: eGFR (Estimated GFR) Units of measure: mL/min/1.73 meters squared eGFR is derived from the reexpressed MDRD Study equation using the following parameters: serum creatinine, age, gender and race. The creatinine assay has been calibrated to be traceable to IDMS. An eGFR <60 mL/min/1.73m2 for >3 months is consistent with chronic kidney disease. Refer to KDOQI guidelines for clinical interpretation. In patients with unstable renal function, e.g. those with acute kidney injury, the eGFR may not accurately reflect actual GFR. Performed By: #### PT, CMP, CBC #### [facility] [address], [place] [address] CBC Collected: 08/24/2017 Status: F Source: [place] 4:50 AM [facility] REPOSITORY TYPE CODE TESTS RESULT OUT OF REFERENCE UNITS RANGE LAB WBC 3.70-11.00 k/uL WBC 4.29 LAB RBC 3.90-5.20 m/uL Low RBC 2.63 LAB HGB 11.5-15.5 g/dL Low Hemoglobin 8.6 LAB HCT 36.0-46.0 % Low Hematocrit 25.9 LAB MCV 80.0-100.0 fL MCV 98.5 LAB MCH 26.0-34.0 pG MCH 32.7 LAB MCHC 30.5-36.0 g/dL MCHC 33.2 LAB RDWCV 11.5-15.0 % RDW-CV 13.6 LAB PLTCT 150-400 k/uL Low Platelet Count 70 Result Comment: No clot detected. LAB MPV 9.0-12.7 fL MPV 11.8 LAB ABSNUC <0.01 k/uL Absolute nRBC <0.01 Performed By: #### PT, CMP, CBC #### [facility] [address] [place], [place] [address] PLAN OF CARE Observed: 08/23/2017 Status: COMPLETED Source: [place] 10:12 PM [facility] REPOSITORY HNO ID: [id number] Author: Salena Young Service: Hepatology Author Type: Resident Type: Plan of Care Filed: 08/23/2017 11:28 PM Note Text: Ms. Cain has been accepted for transfer to Cardiology service under Dr. Chasidy Zavaleta for further management of decompensated heart failure. Transfer orders have been signed. Salena Young MD PGY-3 Internal Medicine Resident Pager: [phone] August 23, 2017 THERAPY NT Observed: 08/23/2017 Status: COMPLETED Source: [place] 2:47 PM [facility] REPOSITORY O ID: [id number] Author: Kajal Wilkes (Pt) Riya Service: Physical Therapy Author Type: Physical Therapist Type: Therapy (PT/OT/Speech/Resp) Filed: 08/23/2017 2:57 PM Note Text: Physical Therapy Evaluation SERVICE DATE: 08/23/2017 SERVICE TIME: 1400 to 1434 ROOM: [place] [address] Recommended Discharge Disposition: Home Recommended Discharge Disposition Comments: with assist from Anticipated Discharge Needs: Physical Assist at Home Physical Assist at Home for: Cleaning;Laundry;Meals;Stairs;Shopping;Transportation Recommended Discharge Equipment: No equipment needs anticipated PT Recommendations to Nursing: Ambulate with device;In halls;Transfer to/from chair;OOB for Meals;With assist of 1 person Device: Wheeled Walker PT 6 Clicks Score: 23 ASSESSMENT : Pt currently presents with decreased strength, balance and endurance requiring SBA/CGA with mobility. Pt will benefit from skilled PT services while in acute setting to address functional deficits, physical impairments and provide education to safely progress mobility. No skilled PT needs anticipated after d/c. Patient Disposition at Start of Session: OOB in Chair Patient Disposition at End of Session: OOB in Chair;Call [place] in [place] Tolerated Full Session Physical Therapy Problem List: Pain;Decreased Activity Tolerance;Decreased Strength;Functional Mobility Impairment;Balance Impaired Patient /Caregiver Goals: Go Home Goals for Plan of Care: Rolling with: Modified Independent Transfer supine to/from sit with: Modified Independent Transfer sit to/from stand with: Modified Independent Ambulate with: Modified Independent Distance: 300 Device: Wheeled Walker Ambulate up and down steps with: Stand By Assistance Number of steps: 5 Device: Rail Rehab Potential: Good PLAN: Treatment Frequency (times per week): 3 Current admission Treatment Interventions: Education;Strengthening;Functional Mobility Training;Balance Training;Neuromuscular Re-education Plan of Care developed with: Patient TREATMENT INTERVENTIONS: Therapy Diagnosis: Reduced mobility-other;Muscle Weakness (generalized);Unsteadiness on feet;Abnormalities of gait and mobility-other Interventions Provided: Evaluation;Therapeutic Activity (98088) $ Evaluation-Low (67449) Billed Units: 1 unit Therapeutic Activity (01057) Treatment Minutes: 16 1 unit Skilled Intervention(s): sit<>Stand transfers from recliner chair with SBA and vc for proper hand placement. amb x 150' with RW and SBA with vc for steady pacing and upright posture, pt reported feeling mild dizziness during amb which subsided with seated rest break. Pt was provided with written handout and educated on seated LE exercises, able to perform x 15 reps each. Pt educated on role of PT in acute setting, benefits of OOB mobility and ambulation 3-5x/day. Total Timed Code Treatment Minutes: 16 Total Treatment Time (minutes): 34 FUNCTIONAL G CODE: PT 6 Clicks Score: 23 (08/23/17 1400) Mobility: Walking and Moving Around Current Status (G8978): CI (08/23/17 1400) Mobility: Walking and Moving Around Goal Status (G8979): CH (08/23/17 1400) Based on clinical assessment and the score on the 6 Clicks Functional Assessment Tool, the G code and corresponding severity modifiers are documented above. SUBJECTIVE: Current Hospital Course: Chart reviewed; Patient presented to ED on 08/19/17 d/t CT scan performed locally showing swelling around liver AND spleen. Her local doctor recommended she f/u at [facility] due to history of cirrhosis Reason for Physical Therapy Consult : Safety assessment Patient Report: Oseas olmos my helps me with everything Home Environment Patient Lives With: Significant Other Assistance Available: 24 Hour Entry To Home: Stairs;With Rail Number Of Stairs Into Home: 5 Number Of Stairs To Bed/Bath: 0 Tub/Shower Type: tub shower Equipment Owned: Wheeled Walker Prior Functional Level: Required Assistance Assistance Required With: Cleaning;Laundry;Meals;Stairs;Transportation;Shopping Prior Functional Level Comments: assists with IADLS and transfers in/out of shower OBJECTIVE: CURRENT FUNCTIONAL STATUS: Current Functional Mobility Assist Level Additional Information Rolling Supine to Sit Sit to Supine Scooting Sit to Stand Stand By Assistance Stand to Sit Stand By Assistance Bed to Chair Stand By Assistance Toilet/Commode Gait Stand By Assistance Gait Device: Wheeled Walker Gait Distance (feet): 150 Stairs Curb Step Car Transfer General Gait Deviations: Nicole decreased;Step length decreased Balance: Static Sitting;Dynamic Sitting;Static Standing;Dynamic Standing Static Sitting Balance: Independent Dynamic Sitting Balance: Independent Static Standing Balance: Supervision Dynamic Standing Balance: Stand By Assistance Please see discipline specific clinical documentation flowsheet for complete details for this therapy evaluation/treatment. SIGNATURE: Kajal Ritter PT PATIENT NAME: Kalyn Cain DATE: August 23, 2017 TIME: 2:47 PM PAGER/CONTACT #: [phone] PT ED Observed: 08/23/2017 Status: COMPLETED Source: [place] 1:26 PM [facility] REPOSITORY O ID: [id number] Author: Cindi Pereira) Blanca Service: Diabetes Education Author Type: Registered Dietitian Type: Patient Education Filed: 08/23/2017 1:36 PM Note Text: PATIENT EDUCATION DIABETES Dm Discharge medications tbd TOPIC: SURVIVAL SKILLS: Glucose Monitoring: Patient/ stated will be getting freestyle alcira to check blood sugars. Patient does check blood sugars; 3+ times per day. Medication Administration : Patient/ stated was recently changes to tresiba: once per day: ? 60 units and novolog combined sliding scale; patient stated believes it is If blood sugars 150-200: 5 units : 201-250: 7 units, etc. Patient/ stated patient's memory is not always correct. Patient is paying; $169.00 for 2 boxes (4 pens) tresiba and ? Amount for novolog pens. Advised patient/ to assess cost of novolog pens vs vial/syringe and also cost of pen needle tips ([facility]: $9.00 for box:50 - 6 mm pen needle tip: need to pinch up skin). Tresiba only comes in insulin pens. Patient stated their insurance does not pay for lantus insulin. This reviewer demonstrated use of insulin pen: 2 unit primer/count of 10/rotation of injection sites/different storages of tresiba and novolog insulins. Signs and symptoms of hypoglycemia and hyperglycemia: Reviewed treatment of hypoglycemia and parameters when to call physician. Patient has had a history of 4 very low blood sugars necessitating calling 911; necessitating them receiving a glucagon emergency pen. Reviewed 'rule of 15 for treating low blood sugars: assuring 15.0gm simple carbohydrates. LIFE STYLE CHANGES: Diet: Reviewed importance of eating 3 meals per day when has a combined novolog regime at meals. HEALTH PROMOTION: Follow up management PATIENT NAME: Kalyn Cain PATIENT LOCATION: [place] [address] READINESS TO LEARN COGNITIVE ABILITY: Alert and oriented Confused at times MOTIVATION TO LEARN: Interested FAMILY SUPPORT: High - Very involved in pt care INSTRUCTION PROVIDED TO: Patient and family member PATIENT LEARNS BEST BY: Individual Instruction Written Instruction - Hand-outs Verbal Instruction Demonstration FACTORS AFFECTING LEARNING: Unable to assess PHYSICAL LIMITATIONS AFFECTING LEARNING: Pain , Fatigue and Limited Mobility LEARNING RESPONSE DIAGNOSIS: Diabetes PATIENT/FAMILY RESPONSE: Verbalizes understanding of: EQUIPMENT USE: Blood Glucose Meter Insulin Pen MEDICAL REGIMEN-Importance of following prescribed medical regimen SELF INJECTION- Correct procedure to administer self injection using clean technique SYMPTOM MANAGEMENT-Correct actions to take to manage symptoms associated with a blood glucose below 70 mg/dL or above 150 mg/dL WORSENING CONDITION-Notify physician or provider if blood glucose is above 150 mg/dL for one week, above 300 mg/dL for 2 consecutive readings or above 400 mg/dL for one reading METHOD OF INSTRUCTION: Individual instruction Written instruction - handouts Verbal instruction FOLLOW-UP PLAN: Reinforce - Repeat previous content Recommend - Recommend continued instruction and follow up as directed INSTRUCTIONAL AIDS USED:my diabetes blueprint SUPPLEMENTAL MATERIAL PROVIDED TO PATIENT: Log book REFERRAL (RECOMMENDATION): Primary Care Provider Electronically Signed By: Cindi Rios RD CDE MPH beeper: [phone] Time = 45 minutes CONSULT Observed: 08/23/2017 Status: COMPLETED Source: [place] 12:49 PM [facility] REPOSITORY HNO ID: [id number] Author: Colby Garcia Service: Cardiovascular Medicine Author Type: Physician Type: Consults Filed: 08/24/2017 2:02 PM Note Text: [facility] CARDI[facility]ASCULAR [facility]ICINE CONSULT NOTE (Template ID [id number]) Kalyn Cain [id number] PRIMARY SERVICE: Hepatology Dr. White CONSULTING SERVICE: Cardiovascular Medicine: General Consults DATE OF ADMISSION: 08/19/2017 DATE OF CONSULT: 08/23/2017 REASON FOR CONSULT Heart Failure Optimization HISTORY OF PRESENT ILLNESS Kalyn Cain is a 67 year old female pmh of HCV cirrhosis MELD Na-14 (Tx w/ Zepatier x12 weeks, eradicated per Dr. Pearson note) c/b portal HTN, EV (EGD 05/12 very small EV, on Coreg), [place] 2003 s/p CABGx3 (03/2004 SVG to Lcx, SVG to RCA and MCCONNELL graft to the LAD), ICM s/p CRTD placement (12/2010) (On ASA and Plavix), PAD s/p left lower extremity stenting (on ASA and Plavix) HFrEF (EF=40%), DMT2 (on insulin) and CKD stage 3b who presented to the ED due to SOB. Follows with proposition player Dr. Aj in [place] who is with [facility]. In ED, pt HDS, afebrile, O2 sat 99% on RA. CXR with bilateral opacifications. EKG w/ no ST segment changes. Labs remarkable for NTpBNP 3472 (2708 on 08/01/17), troponin <0.010, SCr 1.78 (at baseline), LFTs wnl, Hgb 9.9 (stable), plts 80, no leukocytosis. CT A/P showed findings c/w cirrhosis and portal HTN, no acute process in abd/pelvis, no ascites. Patient admitted to the hepatology for further evaluation and mgmt of patient's hypervolemia. Patient reports over the last 2-3 weeks she has had progressively worsening SOB, BENNETT, orthopnea, and BLE swelling. Symptoms have worsened to the point where she has been sleeping in the recliner at home. LE DVT ultrasound negative. Patient had ECHO performed on 08/22 which revealed a dialated LV EF 40% grade III diastolic dysfunction, severely dilated left atrial cavity, right atrial cavity dilation and RVSP of 37 mmHg consistent with mild pulmonary HTN. LHC at OSH on04/17/2016 revealed Right coronary dominant circulation with a left main ostial lesion 100% stenosis, left circumflex proximal lesion with 100% stenosis and RCA proximal lesion with 100% stenosis. SVG to Lcx, SVG to RCA and MCCONNELL graft to the LAD were patent. Patient was continued on IV lasix 40 QD here and is net negative 2L since admission. Her serum Cr is slightly increased to 2.2 from a baseline of 1.7. Today she states her SOB has not improved. She has BENNETT with minimal exertion. Her home medical regimen is Lasix 40 mg PO BID, Ramipril 5 mg, Coreg 12.5 mg BID, ASA 81 mg, Plavix 75 mg and Atorvastatin 40 mg. She was previously on spironolactone 25 mg QD but this was discontinued by her patent legal assistant in April. Currently she is on Carvedilol 6.25 mg BID, ASA 81 mg, Plavix 75 mg and Atorvastatin 40 mg. Her diuretics and ACEi are being held in the setting of KAREEN. PAST MEDICAL HISTORY No past medical history on file. PAST SURGICAL HISTORY Procedure Laterality Date - HYSTERECTOMY HX FAMILY HISTORY No family history on file. SOCIAL HISTORY Social History Substance Use Topics - Smoking status: Never Smoker - Smokeless tobacco: Never Used - Alcohol use No HOME MEDICATIONS CALCIUM CARBONATE/VITAMIN D3 (VITAMIN D-3 ORAL) Take by mouth. INSULIN DEGLUDEC (TRESIBA FLEXTOUCH U-100 SUBCUTANEOUS) Inject 40 Units subcutaneously twice daily. GLUCAGON EMERGENCY KIT, HUMAN, 1 mg injection ACCU-CHEK DISHA PLUS TEST STRP test strip USE 4 TIMES DAILY NOVOLOG FLEXPEN U-100 INSULIN 100 unit/mL inpn USE DIRECTED NEEDED SLIDING SCALE TRESIBA FLEXTOUCH U-200 200 unit/mL (3 mL) injection INJECT 50 UNIT(S) TWICE A DAY BY SUBCUTANEOUS ROUTE FOR 30 DAYS. furosemide (LASIX) 40 mg tablet Take 1 tablet by mouth once daily. elbasvir-grazoprevir (ZEPATIER) 50-100 mg tab Take 1 tablet by mouth once daily ramipril (ALTACE) 5 mg capsule Take 5 mg by mouth once daily. promethazine (PHENERGAN) 25 mg tablet Take 25 mg by mouth every 6 hours as needed. HYDROcodone-acetaminophen (NORCO) 5-325 mg per tablet Take 1 tablet by mouth every 6 hours as needed. levothyroxine (SYNTHROID) 137 mcg tablet Take 137 mcg by mouth daily before breakfast. clopidogrel (PLAVIX) 75 mg tablet Take 75 mg by mouth once daily. atorvastatin (LIPITOR) 40 mg tablet Take 40 mg by mouth once daily. insulin aspart (NOVOLOG) 100 units/ml Inject subcutaneously every 6 hours. aspirin, enteric coated (ASPIRIN, ENTERIC COATED) 81 mg EC tablet Take 81 mg by mouth once daily. carvedilol (COREG) 12.5 mg tablet Take 12.5 mg by mouth twice daily with meals. ferrous sulfate (IRON) 325 mg (65 mg iron) tablet Take 325 mg by mouth daily with breakfast. gabapentin (NEURONTIN) 300 mg capsule Take 300 mg by mouth twice daily. spironolactone (ALDACTONE) 25 mg tablet Take 25 mg by mouth once daily. pantoprazole DR (PROTONIX) 20 mg tablet Take 20 mg by mouth once daily. INPATIENT MEDICATIONS Current hospital medications: carvedilol 6.25 mg tab(s) (COREG) 6.25 mg ORAL BID w MEALS traMADol 50 mg tab(s) (ULTRAM) 50 mg ORAL q 6 H PRN 0.9% NaCl 3-5 mL 3-5 mL INTRAVENOUS q 12 H heparin 5,000 Units injection 5,000 Units SUBCUTANEOUS q 12 H gabapentin 300 mg cap(s) (NEURONTIN) 300 mg ORAL BID atorvastatin 40 mg tab(s) (LIPITOR) 40 mg ORAL DAILY aspirin, enteric coated 81 mg tab(s) (ASPIRIN, ENTERIC COATED) 81 mg ORAL DAILY AT 9 PM clopidogrel 75 mg tab(s) (PLAVIX) 75 mg ORAL DAILY pantoprazole DR 20 mg tab(s) (PROTONIX) 20 mg ORAL DAILY levothyroxine (SYNTHROID) tab(s) 137 mcg 137 mcg ORAL BEFORE BREAKFAST DAILY dextrose 40 % 15 g 15 g ORAL PRN glucagon 1 mg injection (GLUCAGEN) 1 mg INTRAMUSCULAR PRN dextrose 50% in water 25 mL syringe 12.5 g INTRAVENOUS PRN insulin lispro injection (rapid acting) (HumaLOG) SUBCUTANEOUS w MEALS ALLERGIES ALLERGIES Allergen Reactions - Nexium [Esomeprazol* Itching COMPLETE REVIEW OF SYSTEMS Constitutional: No weight loss, malaise or fevers. HEENT: Negative for frequent or significant headaches Respiratory: +SOB negative for cough Cardiovascular: Negative for chest pain or palpitations +leg swelling Gastrointestinal: Negative for abdominal discomfort, blood in stools or black stools or change in bowel habits Genitourinary: No history of dysuria, frequency, or incontinence Endocrine: Negative for cold or heat intolerance, polyuria, polydipsia and goiter Hematologic: Negative for prolonged bleeding, bruising easily or swollen nodes Neurologic: No history or headaches, syncope, paralysis, seizures or tremors Integumentary: Negative for lesions, rash, and itching. PHYSICAL EXAM BP (!) 134/41 Pulse 70 Temp 36.3 ?C (97.3 ?F) (Oral) Resp 18 Ht 162.6 cm (5' 4) Wt 106 kg (233 lb 11 oz) SpO2 96% BMI 40.11 kg/m? General Appearance: Obese and No acute distress HEENT: PERRLA, EOM's intact and Fair dentition Lungs: Crackles Heart: Regular rate AND rhythm and S1, S2 normal Abdomen: Soft and distended, shifting dullness to percussion Skin: Warm and Dry 2+ LE edema Musculoskeletal: No deformities Neurologic/Psychiatric: Oriented to time, place AND person DATA Laboratory: Recent Labs 08/23/17 0611 08/22/17 0505 08/21/17 0632 WBC 4.84 5.11 4.62 HB 8.4* 8.3* 8.6* HCT 25.9* 25.4* 26.5* PLT 75* 66* 67* Recent Labs 08/23/17 0611 08/22/17 0505 08/21/17 0632 NA 136 137 140 K 4.8 4.6 4.3 CO2 26 24 26 BUN 45* 42* 39* CREAT 2.18* 2.04* 1.92* GLUC 116* 53* 57* Recent Labs 08/23/17 0611 08/22/17 0505 08/21/17 0632 INR 1.2 1.2 1.2 No results found for: CHOL, HDL, LDL, TG No results found for: HBA1C EK08/19/2017 Diagnosis:AV DUAL-PACED RHYTHM WITH PROLONGED AV CONDUCTION BIVENTRICULAR PACEMAKER DETECTED ABNORMAL ECG NOTE: PLEASE SEE PHYSICIAN'S NOTE FROM E.D. VISIT Confirmed by EDYTA RAMSAY M.D. ([id number]), fan mail editor JIM RIVAS ([id number]) on 08/21/2017 9:38:39 AM ? Ventricular Rate : 70 ?BPM Atrial Rate : 70 ?BPM P-R Interval : 250 ?ms QRS Duration : 130 ?ms Q-T Interval : 442 ?ms QTC Calculation(Bezet) : 477 ?ms Chest Radiograph: 08/20/2017 Lines, tubes, and devices: ?Stable ICD. Lungs and pleura: ?Tiny right effusion and scattered lower lung atelectasis with borderline interstitial edema. ?No new consolidations. No pneumothorax. Cardiomediastinal silhouette: ?Stable cardiac silhouette enlargement. Other: ?Degenerative changes of the thoracic spine. Echocardiogram: 08/22/2017 CONCLUSIONS: - Technically difficult exam due to body habitus and suboptimal positioning. - Exam indication: Shortness of Breath - The left ventricle is dilated. Left ventricular systolic function is moderately decreased. EF = 40 ? 5% (visual est.) - The right ventricle is normal in size. Right ventricular systolic function is low normal. - The left atrial cavity is severely dilated. - The right atrial cavity is dilated. - Aortic sclerosis without stenosis. - Estimated right ventricular systolic pressure is likely underestimated due to a weak or incomplete tricuspid regurgitation signal and is, at least, 37 mmHg consistent with mild pulmonary hypertension. Estimated right atrial pressure is 10 ?mmHg. - Unable to perform agitated saline study or contrast due to weekend study. Recommend repeat limited echo with contrast when available to better visualize LV endocardium. - The patient has not had a prior CC echocardiographic exam for comparison. Stress Testing: N/A Cardiac Catheterization: LHC at OSH on04/17/2016 Right coronary dominant circulation with a left main ostial lesion 100% stenosis, left circumflex proximal lesion with 100% stenosis and RCA proximal lesion with 100% stenosis. SVG to Lcx, SVG to RCA and MCCONNELL graft to the LAD were patent. Other Radiology: LE DVT Ultrasound 08/21/2017 Left side negative for DVT Right side negative for DVT ASSESSMENT AND RECOMMENDATIONS Kalyn Cain is a 67 year old female pmh of HCV cirrhosis MELD Na-14 (Tx w/ Zepatier x12 weeks, eradicated per Dr. Pearson note) c/b portal HTN, EV (EGD 05/12 very small EV, on Coreg), [place] 2003 s/p CABGx3 (03/2004 SVG to Lcx, SVG to RCA and MCCONNELL graft to the LAD), ICM s/p defib placement (12/2010) (On ASA and Plavix), PAD s/p left lower extremity stenting (on ASA and Plavix) HFrEF (EF=40%), DMT2 (on insulin) and CKD stage 3b who presented to the ED due to SOB. Follows with proposition player Dr. Aj in [place] who is with [facility]. HFrEF Patient presenting with SOB, BENNETT, LE swelling and orthopnea for past 3-4 months. NYHA class III/IV ECHO reveals EF 40% with grade III diastolic dysfunction. No prior study in our system for comparison. History of MN, CAD and ischemic cardiomyopathy requiring AICD placement in 12/2010 Patient is currently on RA satting at 95% Still markedly SOB though does not appear grossly fluid overloaded at this time. Patient does have shifting dullness on exam Plan Restart Lasix 40 mg IV QD Continue Coreg 6.25 mg BID. Consider up titrating Coreg to home dose of 12.5 mg BID in the coming days. Continue holding Ramipril 5 mg QD in setting of KAREEN Please order abdominal ultrasound to assess for ascities and paracentesis if indicated Heart healthy diet 2 G/day sodium restriction 1 L fluid restriction per day We will plan to transfer to cardiology service for further management CAD Patient with CAD s/p 3V CABG in 2003 [facility] 03/2016 Right coronary dominant circulation with a left main ostial lesion 100% stenosis, left circumflex proximal lesion with 100% stenosis and RCA proximal lesion with 100% stenosis. SVG to Lcx, SVG to RCA and MCCONNELL graft to the LAD were patent. Patient with LHC at [facility] in May 2017 no records available Plan Continue Coreg 6.25 mg BID. Consider up titrating Coreg to home dose of 12.5 mg BID in the coming days as volume status improves. Continue ASA 81 mg Continue Plavix 75 mg Continue Atorvastain 40 mg Pleas obtain OSH records from [facility] (specifically cardiac ECHO and LHC) KAREEN Concern for cardiorenal syndrome Plan Restart Lasix 40 mg IV QD Heart healthy diet 2 G/day sodium restriction 1 L fluid restriction per day Continue holding ACEi in setting of KAREEN We will discuss with cardiology service regarding transfer of care. The cardiology consult service will sign off. Thank you for this consult and for allowing us to contribute to the care of Ms. Cain. Please contact us if there Case to be discussed with staff Uriah Rivas MD Pager [phone] 08/23/2017 12:49 PM [facility] STAFF PHYSICIAN NOTE OF PERSONAL INVOLVEMENT IN CARE IMPRESSION: Patient is a 67 year old female admitted with shortness of breath secondary to decompensated systolic and diastolic heart failure [EF 40% on echo in this admission, we do not have a recent echo reports from outside hospital] due to ischemic cardiomyopathy. She is status post [employer]ING [employer]ING [employer]OR-D implant in 2000. Her background is significant for [place] 2003 s/p CABGx3 (03/2004 SVG to Lcx, SVG to RCA and MCCONNELL graft to the LAD); report of outside hospital coronary angiography in July 2016 suggested occluded [place] coronary arteries and patent MCCONNELL to LAD, SVG to LCx and SVG to RCA. She informs us she has had a repeat coronary catheterization in May of this year [facility], however there are no catheter images or report available. Her background is also significant for cirrhosis secondary to hepatitis C virus [now cleared], MELD Na-14 (Tx w/ Zepatier x12 weeks, eradicated per Dr. Pearson note) c/b portal HTN, EV (EGD 05/12 very small EV, on Coreg), PAD s/p left lower extremity stenting (on ASA and Plavix), DMT2 (on insulin) and CKD stage 3b. She was advised by the chief strategy officer present emergency room after informing him of increasing shortness of breath. Hepatology service has assessed that her cirrhosis is compensated at present. She reports increasing shortness of breath NYHA class III?IV symptoms in recent months, with multiple admissions [facility] this year, however she is unsure of her diagnoses for those admissions. Her Aldactone dose was discontinued going year due to worsening renal function. Her usual BONITA inhibitor was discontinued on this admission. The usual carvedilol 12.5 mg twice a day dose was reduced as 6.25 mg by the treating team. She was treated with IV Lasix since admission, and is 2 L net negative. She has been off diuretic today. She becomes very dyspneic on ambulating several feet. She remains fluid overloaded on examination with small bilateral pleural effusions and some peripheral edema; she does have shifting dullness on examination however her abdomen is not tense. Her creatinine is 2.2 today, with a baseline of around 1.7. Recommendations: - Obtain catheterization images/report from [facility] for procedure performed interpreted this year - Obtain recent discharge summaries from [facility] for recent admissions, ? Related to heart failure - Recommence IV Lasix - Monitor renal function - Fluid/Salt restrict - Abdominal ascites ultrasound scan - Aim to increase carvedilol dose to her usual 12.5 mg twice a day in the coming days - Consider restarting BONITA inhibitor once renal function improves - I have discussed with Dr. Zavaleta from the cardiology and ORE SAMPLER service, who has kindly accepted care for further management of the patient. Treating team to please put transfer orders Thank you for the opportunity to participate in the care of Mrs. Cain. I have reviewed the documentation obtained and documented by the Resident and have reviewed and updated the problem list as appropriate. I have personally performed a face to face assessment of the patient and have personally participated in the grady components. I have discussed the case and management of the patient's care. STAFF PHYSICIAN: Colby Garcia MD DATE OF SERVICE: August 23, 2017 TIME OF SERVICE: 7:30 PM PT ED Observed: 08/23/2017 Status: COMPLETED Source: [place] 11:44 AM [facility] REPOSITORY HNO ID: [id number] Author: Heidy (Rn) Felipe Iverson RN Service: Diabetes Education Author Type: Registered Nurse Type: Patient Education Filed: 08/23/2017 11:45 AM Note Text: DIABETES EDUCATION PROGRESS NOTE Diabetes education referral received[place] [phone] PROGRESS Observed: 08/23/2017 Status: COMPLETED Source: [place] 6:25 AM [facility] REPOSITORY HNO ID: [id number] Author: Marquis White Service: Hepatology Author Type: Physician Type: Progress Notes Filed: 08/23/2017 9:11 AM Note Text: HEPATOLOGY -GREEN TEAM Progress Note PATIENT NAME: Kalyn Cain PRIMARY TEAM: Hepatology Weekdays 7 am to 5 pm/Weekend 7 am to 3 pm: Page [phone] (Guitar Instructor- Richard Morgan) then [phone] (Senior- Clement Chester) Weekdays 5 pm to 7 am/Weekend 3 pm to 7 am: Carriage Operator Pager [phone] PRIMARY CARE PHYSICIAN: Mary Ramirez DO Patient Summary Kalyn Cain is a 67 year old female with PMHx -Cirrhosis d/t Hepatitis C 1a (Tx w/ Zepatier x12 weeks, SVR per Dr. Pearson note) no biopsy on record, disease c/b portal HTN w/ EV (noted on EGD 05/12, very small, on Coreg), no hx of paracentesis (on 40mg lasix daily at home) -Follows with hepatology, Dr. Pearson -CAD s/p CABG x4 (03/2004), h/o [place] s/p defib placement, on ASA AND plavix -HF? No echo on EPIC (on lasix 40mg BID) -DMT2 -CKD [id number] -Chronic macrocytic anemia Patient presented to ED on 08/19/17 d/t CT scan performed locally showing swelling around liver AND spleen. Her local doctor recommended she f/u at [facility] due to history of cirrhosis. Of note, patient reports over the last 2-3 weeks she has had progressively worsening SOB, BENNETT, orthopnea, and BLE swelling. Symptoms have worsened to the point where she has been sleeping in the recliner at home. Denies supp O2 or inhaler use. No recent weight change. She describes acute chest pressure over last couple of days that starts near the sternum and wraps around the entire abdomen and lower chest radiating around the back. CT abd shows no ascites, no acute process, just cirrhosis. CXR shows pulm edema. Cardiac enzymes negative. NT Pro BNP elevated to 3472. MELD-Na score: 15 at 08/22/2017 5:05 AM MELD score: 15 at 08/22/2017 5:05 AM Calculated from: Serum Creatinine: 2.04 mg/dL at 08/22/2017 5:05 AM Serum Sodium: 137 mmol/L at 08/22/2017 5:05 AM Total Bilirubin: 0.7 mg/dL (Rounded to 1) at 08/22/2017 5:05 AM INR(ratio): 1.2 at 08/22/2017 5:05 AM Age: 67 years Date of diagnosis: HCV ~2002, cirrhosis ~[id number] Biopsy proven: No OLT listed: No Last EGD:05/25/16 Single, column very small EV which flattened with minimal air sufflation, no banding. Irregular squamocolumnar junction. Mild erythema. Normal duodenum. No gastric varices Last colonoscopy: 2016 w/ local GI, 3 sessile polyps transverse colon, 1 sessile poly in descending colon, 1 sessile polyp in rectum, repeat in 2019 Other GI procedures/paracentesis: Last ECHO: None Home diuretics: Lasix Last EtOH use: None Last drug use: None Intake/Output 08/19/17 07 - 08/20/17 0659 08/20/17 07 - 08/21/17 0659 08/21/17 07 - 08/22/17 0659 08/22/17 07 - 08/23/17 0659 08/23/17 07 - 08/24/17 0659 Intake (ml) 0 840 600 780 0 Output (ml) 956 226 1376 1300 0 Net (ml) -300 440 -901 -520 0 Interval Hx - No major issues overnight, low diastolic blood pressures but otherwise hemodynamically stable. - Urine output of 1.3 L on IV lasix 40 mg BID, feels a bit better today in terms of shortness of breath. - Creatinine has been uptrending, morning labs pending. - Echo yesterday shows EF 40%, grade III diastolic dysfunction, low normal RV systolic function. Current Medications: CALCIUM CARBONATE/VITAMIN D3 (VITAMIN D-3 ORAL) Take by mouth. INSULIN DEGLUDEC (TRESIBA FLEXTOUCH U-100 SUBCUTANEOUS) Inject 40 Units subcutaneously twice daily. GLUCAGON EMERGENCY KIT, HUMAN, 1 mg injection ACCU-CHEK DISHA PLUS TEST STRP test strip USE 4 TIMES DAILY NOVOLOG FLEXPEN U-100 INSULIN 100 unit/mL inpn USE DIRECTED NEEDED SLIDING SCALE TRESIBA FLEXTOUCH U-200 200 unit/mL (3 mL) injection INJECT 50 UNIT(S) TWICE A DAY BY SUBCUTANEOUS ROUTE FOR 30 DAYS. furosemide (LASIX) 40 mg tablet Take 1 tablet by mouth once daily. elbasvir-grazoprevir (ZEPATIER) 50-100 mg tab Take 1 tablet by mouth once daily ramipril (ALTACE) 5 mg capsule Take 5 mg by mouth once daily. promethazine (PHENERGAN) 25 mg tablet Take 25 mg by mouth every 6 hours as needed. HYDROcodone-acetaminophen (NORCO) 5-325 mg per tablet Take 1 tablet by mouth every 6 hours as needed. levothyroxine (SYNTHROID) 137 mcg tablet Take 137 mcg by mouth daily before breakfast. clopidogrel (PLAVIX) 75 mg tablet Take 75 mg by mouth once daily. atorvastatin (LIPITOR) 40 mg tablet Take 40 mg by mouth once daily. insulin aspart (NOVOLOG) 100 units/ml Inject subcutaneously every 6 hours. aspirin, enteric coated (ASPIRIN, ENTERIC COATED) 81 mg EC tablet Take 81 mg by mouth once daily. carvedilol (COREG) 12.5 mg tablet Take 12.5 mg by mouth twice daily with meals. ferrous sulfate (IRON) 325 mg (65 mg iron) tablet Take 325 mg by mouth daily with breakfast. gabapentin (NEURONTIN) 300 mg capsule Take 300 mg by mouth twice daily. spironolactone (ALDACTONE) 25 mg tablet Take 25 mg by mouth once daily. pantoprazole DR (PROTONIX) 20 mg tablet Take 20 mg by mouth once daily. Nexium [Esomeprazole Magnesium] Physical Exam 08/22/17 0510 08/22/17 1353 08/22/17 2219 08/23/17 0518 BP: 131/50 (!) 137/42 93/63 (!) 108/43 Pulse: 70 70 70 70 Resp: 18 19 18 18 Temp: 36.6 ?C (97.9 ?F) 36.8 ?C (98.2 ?F) 36.4 ?C (97.6 ?F) 36.3 ?C (97.3 ?F) TempSrc: Oral Oral Oral Oral SpO2: 96% 95% 97% 96% Weight: 104 kg (229 lb 4.5 oz) 106 kg (233 lb 11 oz) Height: Temp Av.7 ?C (98.1 ?F) Min: 36.5 ?C (97.7 ?F) Max: 36.9 ?C (98.5 ?F) Pulse Av.5 Min: 67 Max: 71 No Data Recorded Cuff BP Min: 133/60 Max: 139/62 Body mass index is 40.11 kg/m?. BP (!) 108/43 Pulse 70 Temp 36.3 ?C (97.3 ?F) (Oral) Resp 18 Ht 162.6 cm (5' 4) Wt 106 kg (233 lb 11 oz) SpO2 96% BMI 40.11 kg/m? General: No acute distress, AANDOx3. Head: Normocephalic, atraumatic. Eyes: Anicteric sclera. Neck: Supple. Cardiovascular: RRR, S1 + S2. Respiratory: Clear to auscultation bilaterally, no distress. Abdomen: Soft, non-tender, obese. Extremities: +1-2 pitting peripheral edema b/l. Warm and well perfused. Neuro: AO x 3, no gross focal deficits. Psych: Normal affect, conversant. Intake/Output 08/19/17 07 - 08/20/17 0659 08/20/17 07 - 08/21/17 0659 08/21/17 07 - 08/22/17 0659 08/22/17 07 - 08/23/17 0659 08/23/17 07 - 08/24/17 0659 Intake (ml) 0 840 600 780 0 Output (ml) 330 683 1085 1300 0 Net (ml) -300 440 -901 -520 0 Data Chest XR 08/19/17: IMPRESSION: Mild interstitial edema. RESULT: Lines, tubes, and devices: ?There is a left-sided ICD with leads terminating in the right atrium, right ventricle and coronary sinus. Lungs and pleura: ?Mild pulmonary vascular redistribution. ?No consolidation. No lung mass. No pleural effusion. Cardiomediastinal silhouette: Status post median sternotomy. ?Enlarged cardiomediastinal silhouette. Other: ?No acute osseous abnormality. CT A/P 08/19/17: IMPRESSION: NO ACUTE PROCESS IN THE ABDOMEN OR PELVIS. CHANGES OF CIRRHOSIS AND PORTAL HYPERTENSION. RESULT: Abdomen / Pelvis: Liver: Cirrhotic morphology. Biliary: S/p cholecystectomy. Spleen: Spleen measures approximately 14 cm in craniocaudal dimension. Pancreas: Atrophic. ?No obvious lesions or ductal dilatation Adrenals: No mass. Kidneys: No calculus, hydronephrosis or finding to suggest a mass in the unenhanced kidney. ?2.3 cm left superior pole cyst (2:45). Atrophic kidneys. GI Tract: No bowel dilation. Lymph Nodes: No lymphadenopathy. Mesentery/peritoneum: No ascites. Retroperitoneum: No mass. Vasculature: Arterial atherosclerotic disease without aneurysm. ?Multiple perigastric collaterals near the midline of the upper abdomen, sequela of portal hypertension. Pelvis: No mass or ascites. ?Status post hysterectomy. ?The bladder is unremarkable. ?There is a 0.7 cm calcification in the left ovary (2:106). Bones/Soft Tissues: Degenerative changes. ?There is a tiny fat-containing umbilical hernia. ?Nonspecific subcutaneous edema in the anterior abdominal wall in the pelvis. Lower thorax: Small right pleural effusion. ?There is mild right basilar atelectasis. Labs CBC: Recent Labs 08/22/17 0505 08/21/17 0632 08/20/17 0401 08/19/17 1511 WBC 5.11 4.62 5.55 6.00 HB 8.3* 8.6* 8.4* 9.9* PLT 66* 67* 69* 80* MCV 98.8 100.0 100.8* 102.3* RDWCV 13.8 14.0 14.0 13.8 NEUTP -- -- -- 71.7 ABSNEUT -- -- -- 4.28 LYMPHP -- -- -- 16.3 MONOP -- -- -- 5.2 EODINP -- -- -- 6.0 COAG: Recent Labs 08/22/17 0505 08/21/17 0632 08/20/17 0401 08/19/17 1511 INR 1.2 1.2 1.2 1.2 BMP: Recent Labs 08/22/17 0505 08/21/17 0632 08/20/17 0401 08/19/17 1511 GLUC 53* 57* 104* 94 NA 137 140 138 139 K 4.6 4.3 4.1 4.2 CHLOR 100 102 100 100 CO2 24 26 25 27 ANION 13 12 13 12 BUN 42* 39* 36* 35* CREAT 2.04* 1.92* 1.85* 1.78* CHEM: Recent Labs 08/22/17 0505 08/21/17 0632 08/20/17 0401 08/19/17 1511 ALB 3.4* 3.0* 3.0* 3.9 TPROT 7.0 7.0 6.8 8.2* CA 8.6 8.7 9.0 9.5 HEPATIC: Recent Labs 08/22/17 0505 08/21/17 0632 08/20/17 0401 08/19/17 1511 ALKPHOS 77 77 78 89 ALT 9 8 8 9 AST 14 13 15 16 TBILI 0.7 0.7 0.8 0.7 CARDIAC: Recent Labs 08/20/17 0856 08/20/17 0400 08/19/17 1511 TROPT <0.010 <0.010 <0.010 PBNP -- -- 3,472* Assessment and Plan Mrs. Kalyn Cain is a 67 yo female w/ PMHx Cirrhosis d/t chronic hepatitis C, disease c/b portal HTN and EV, CAD s/p CABG x4 (03/2004), h/o MN s/p defib placement (on ASA AND plavix), HF? No echo on EPID (on lasix 40mg BID), DMT2, CKD Qydla2o, macrocytic anemia who presents with #Volume overload CXR w/ mild interstitial edema in ED HDS, O2 sat 99% RA, non-pitting pedal edema NTpBNP 3472, up from 2700 on 08/01 EKG: BiV paced, no ST segment abnormalities Etiology: mild CHF exacerbation? vs. volume overload 2/2 cirrhosis? (unlikely w/ normal LFTs, albumin) Echo 08/22 shows EF 40%, grade III diastolic dysfunction, low normal RV systolic function. Plan: -diuresis IV lasix 40mg BID, titrate based on volume status -Strict I/Os -Daily weights -Monitor SpO2 #Chest Pressure Mid-sternum, wrapping around to back NTpBNP 3472, up from 2700 on 08/01 EKG: BiV paced, no ST segment abnormalities CXR w/ mild interstitial edema in ED Etiology: interstitial edema vs. increased pressure from abdominal distension, unlikely ACS w/ unchanged EKG, negative troponin Plan: -Monitor for worsening sxs #HCV Cirrhosis HCV treated w/ Zepatier x12 weeks, eradicated per Dr. Pearson note Disease c/b portal HTN CT A/P (08/19): cirrhotic morphology #Elevated D-dimer (670) -no tachycardia, no hypotension, no hypoxia -in setting of CKD and cirrhosis and possible CHF -obtained for chest pressure Chronic Medical conditions #HTN - discontinue ramipril due to worsening creatinine (08/23) #DMT2 -On tresiba 60units in AM w/ Novolog SSI Plan: Lantus 48U in AM w/ SSI #Hypothyroidism -Continue levothyroxine. #CAD s/p CABG x4 (03/2004), h/o MN - continue ASA, plavix #CKD Stage 4 Creatinine Date Value Ref Range Status 08/22/2017 2.04 (H) 0.58 - 0.96 mg/dL Final 08/21/2017 1.92 (H) 0.58 - 0.96 mg/dL Final 08/20/2017 1.85 (H) 0.58 - 0.96 mg/dL Final 08/19/2017 1.78 (H) 0.58 - 0.96 mg/dL Final Plan: -Uptredning creatinine. -Discontinue ramipril. -Strict I/O -Avoid nephrotoxic agents MAINTENANCE: # Diet - Electrolyte AND carb controlled # VTE PPx - SubQ Heparin 5000U q12h # Dispo Planning - Pending Brief plan for today: - Will consult cardiology team for their input on optimizing the medications. - Follow morning creatinine level, will decide on further diuresis based on renal function. - Discontinue ramipril due to worsening renal function. - TTE done yesterday, will request bubble study to be done today. Salena Young MD PGY-3 Internal Medicine Resident Pager: [phone] August 23, 2017 Patient examined. Team notes reviewed and agree with findings and plan. Grady clinical findings were confirmed at the bedside. Discussed with patient and team, issues, options and plans. In brief, 67 year old female with HCV cirrhosis, portal hypertension, esophageal varices, CAD, s/p CABG, admitted with worsending shortness of breath and renal dysfunction, orthopnea . Major issues today: continues shortness of breath, no chest pain, no nausea, emesis Medications reviewed ROS: No headache, visual, auditory symptoms. No chest pain, moderate shortness of breath, cough or wheezing. No abdominal pain, mild abd distention. No gi bleeding. No urinary symptoms. No loss of consciousness. Physical examination; No cervical lymphadenopathy HEENT- no thyroid enlargement no skin rash VSS, afebrile CVS: S1S2 normal, no murmurs RS: Clear to auscultation, no crackles or rhonchi PA: Soft, no tenderness, mild distension, bowel sounds normal MANAGER PROPERTY: Alert, oriented x3. moves all 4 extremities, plantars downgoing, no flap Ext: 2+ edema. No calf tenderness Labs: Reviewed CBC, Coags, BMP, Mg, Phos Recent Labs 08/23/17 0611 08/22/17 0505 08/21/17 0632 WBC 4.84 5.11 4.62 HB 8.4* 8.3* 8.6* HCT 25.9* 25.4* 26.5* PLT 75* 66* 67* INR 1.2 1.2 1.2 NA 136 137 140 K 4.8 4.6 4.3 CHLOR 97 100 102 CO2 26 24 26 BUN 45* 42* 39* CREAT 2.18* 2.04* 1.92* GLUC 116* 53* 57* CA 8.9 8.6 8.7 Liver Function, Amylase, AND Lipase Recent Labs 08/23/17 0611 08/22/17 0505 08/21/17 0632 TPROT 7.3 7.0 7.0 ALB 3.5* 3.4* 3.0* ALT 8 9 8 AST 13 14 13 ALKPHOS 83 77 77 TBILI 0.7 0.7 0.7 MELD-Na score: 17 at 08/23/2017 6:11 AM MELD score: 16 at 08/23/2017 6:11 AM Calculated from: Serum Creatinine: 2.18 mg/dL at 08/23/2017 6:11 AM Serum Sodium: 136 mmol/L at 08/23/2017 6:11 AM Total Bilirubin: 0.7 mg/dL (Rounded to 1) at 08/23/2017 6:11 AM INR(ratio): 1.2 at 08/23/2017 6:11 AM Age: 67 years Plan: 1. Major issue is orthopnea and dyspnea on exertion 2.worsening renal dysfunciton, stop diuretics 3.cardiology input and posisble transfer to their service since she does not have significnat liver disease and no active management issue for liver disease Marquis White MD Staff Physician Gastroenterology and Hepatology CBC Collected: 08/23/2017 Status: F Source: [place] 6:11 AM [facility] REPOSITORY TYPE CODE TESTS RESULT OUT OF REFERENCE UNITS RANGE LAB WBC 3.70-11.00 k/uL WBC 4.84 LAB RBC 3.90-5.20 m/uL Low RBC 2.66 LAB HGB 11.5-15.5 g/dL Low Hemoglobin 8.4 LAB HCT 36.0-46.0 % Low Hematocrit 25.9 LAB MCV 80.0-100.0 fL MCV 97.4 LAB MCH 26.0-34.0 pG MCH 31.6 LAB MCHC 30.5-36.0 g/dL MCHC 32.4 LAB RDWCV 11.5-15.0 % RDW-CV 13.8 LAB PLTCT 150-400 k/uL Low Platelet Count 75 LAB MPV 9.0-12.7 fL MPV 11.9 LAB ABSNUC <0.01 k/uL Absolute nRBC <0.01 Performed By: #### CBC, PT, CMP #### [facility] [address] [place], [place] [address] PROTIME Collected: 08/23/2017 Status: F Source: [place] 6:11 AM [facility] REPOSITORY TYPE CODE TESTS RESULT OUT OF RANGE REFERENCE UNITS LAB PSEC 9.7-13.0 sec PT Sec 11.9 LAB INR 0.9-1.3 PT INR 1.2 Result Comment: Vitamin K Antagonist (VKA) Therapeutic Range: INR 2 to 3 (Target INR of 2.5) Note: For patients treated with VKA drugs, such as warfarin, the [place] [employer] 2012 Guideline recommends a therapeutic INR range of 2 to 3 (target INR of 2.5). This recommendation includes high-risk patients with antiphospholipid syndrome with previous arterial or venous thromboembolism, current-generation mechanical or bioprosthetic aortic heart valve replacement. Note: Patients with mechanical aortic valve replacement and additional risk factors for thromboembolic events (atrial fibrillation, previous thromboembolism, LV dysfunction, hypercoagulable conditions) or an older generation mechanical AVR (i.e., ball in-Cage) or any mechanical MVR should have a INR therapeutic range of 2.5 to 3.5 (target INR of 3). Lana GH, et al. Chest 2012, 141:7S-47S Joce RA, et al. [facility] 2017, 70: 252-289 Performed By: #### CBC, PT, CMP #### [facility] [address] [id number] COMP METABOLIC PANEL Collected: 08/23/2017 Status: F Source: [place] 6:11 AM [facility] REPOSITORY TYPE CODE TESTS RESULT OUT OF REFERENCE UNITS RANGE LAB TP 6.3-8.0 g/dL Protein, Total 7.3 LAB ALB 3.9-4.9 g/dL Low Albumin 3.5 LAB CA 8.5-10.2 mg/dL Calcium, Total 8.9 LAB TBIL 0.2-1.3 mg/dL Bilirubin, Total 0.7 LAB ALKP 32-117 U/L Alkaline Phosphatase 83 LAB AST 13-35 U/L AST 13 LAB GLU 74-99 mg/dL Glucose High 116 Result Comment: The [place] Diabetes Association (ADA) provides guidance for cutoff values for fasting glucose and random glucose. The ADA defines fasting as no caloric intake for at least 8 hours. Fas ting plasma glucose results between 100 to 125 mg/dL indicate increased risk for diabetes (prediabetes). Fasting plasma glucose results greater than or equal to 126 mg/dL meet the criteria for diagnosis of diabetes. In the absence of unequivocal hyperglycemia, results should be confirmed by repeat testing. In a patient with classic symptoms of hyperglycemia or hyperglycemic crisis, random plasma glucose results greater than or equal to 200 mg/dL meet the criteria for diagnosis of diabetes. Reference: Standards of Medical Care in Diabetes 2016, [place] Diabetes Association. Diabetes Care. 2016.39(Suppl 1). LAB BUN 7-21 mg/dL BUN High 45 LAB CRET 0.58-0.96 mg/dL Creatinine High 2.18 LAB NA 136-144 mmol/L Sodium 136 LAB K 3.7-5.1 mmol/L Potassium 4.8 LAB CL 97-105 mmol/L Chloride 97 LAB CO2 22-30 mmol/L CO2 26 LAB AGAP 9-18 mmol/L Anion Gap 13 LAB ALT 7-38 U/L ALT 8 LAB GFRAA eGFR- Amer. 27 LAB GFRNAA . eGFR-All Other Races 23 Result Comment: eGFR (Estimated GFR) Units of measure: mL/min/1.73 meters squared eGFR is derived from the reexpressed MDRD Study equation using the following parameters: serum creatinine, age, gender and race. The creatinine assay has been calibrated to be traceable to IDMS. An eGFR <60 mL/min/1.73m2 for >3 months is consistent with chronic kidney disease. Refer to KDOQI guidelines for clinical interpretation. In patients with unstable renal function, e.g. those with acute kidney injury, the eGFR may not accurately reflect actual GFR. Performed By: #### CBC, PT, CMP #### [facility] [employer] [address] [place], [place] [address] HEMOGLOBIN A1C Collected: 08/23/2017 Status: F Source: [place] 6:11 AM [facility] REPOSITORY TYPE CODE TESTS RESULT OUT OF REFERENCE UNITS RANGE LAB HGBA1C 4.3-5.6 % High Hemoglobin A1c 5.8 LAB HBA0 mg/dL Est. Average Glucose 120 Result Comment: eAG: (Estimated average glucose) is a calculated value from HgbA1c and is roofing sales representative of the average blood glucose level in the last 2-3 month period. Performed By: #### HBA1C #### [facility] [employer] [address] [place], [place] [address] PROGRESS Observed: 08/22/2017 Status: COMPLETED Source: [place] 6:32 AM [facility] REPOSITORY HNO ID: [id number] Author: Marquis White Service: Hepatology Author Type: Physician Type: Progress Notes Filed: 08/22/2017 8:20 AM Note Text: HEPATOLOGY -GREEN TEAM Progress Note PATIENT NAME: Kalyn Cain PRIMARY TEAM: Hepatology Weekdays 7 am to 5 pm/Weekend 7 am to 3 pm: Page [phone] (Guitar Instructor- Richard Morgan) then [phone] (Senior- Clement Chester) Weekdays 5 pm to 7 am/Weekend 3 pm to 7 am: Carriage Operator Pager [phone] PRIMARY CARE PHYSICIAN: Mary Ramirez DO Patient Summary Kalyn Cain is a 67 year old female with PMHx -Cirrhosis d/t Hepatitis C 1a (Tx w/ Zepatier x12 weeks, SVR per Dr. Pearson note) no biopsy on record, disease c/b portal HTN w/ EV (noted on EGD 05/12, very small, on Coreg), no hx of paracentesis (on 40mg lasix daily at home) -Follows with hepatology, Dr. Pearson -CAD s/p CABG x4 (03/2004), h/o MN s/p defib placement, on ASA AND plavix -HF? No echo on EPIC (on lasix 40mg BID) -DMT2 -CKD Xlzyp3g -Chronic macrocytic anemia Patient presented to ED on 08/19/17 d/t CT scan performed locally showing swelling around liver AND spleen. Her local doctor recommended she f/u at [facility] due to history of cirrhosis. Of note, patient reports over the last 2-3 weeks she has had progressively worsening SOB, BENENTT, orthopnea, and BLE swelling. Symptoms have worsened to the point where she has been sleeping in the recliner at home. Denies supp O2 or inhaler use. No recent weight change. She describes acute chest pressure over last couple of days that starts near the sternum and wraps around the entire abdomen and lower chest radiating around the back. CT abd shows no ascites, no acute process, just cirrhosis. CXR shows pulm edema. Cardiac enzymes negative. NT Pro BNP elevated to 3472. MELD-Na score: 15 at 08/21/2017 6:32 AM MELD score: 15 at 08/21/2017 6:32 AM Calculated from: Serum Creatinine: 1.92 mg/dL at 08/21/2017 6:32 AM Serum Sodium: 140 mmol/L (Rounded to 137) at 08/21/2017 6:32 AM Total Bilirubin: 0.7 mg/dL (Rounded to 1) at 08/21/2017 6:32 AM INR(ratio): 1.2 at 08/21/2017 6:32 AM Age: 67 years Date of diagnosis: HCV ~2002, cirrhosis ~4531-1301 Biopsy proven: No OLT listed: No Last EGD:05/25/16 Single, column very small EV which flattened with minimal air sufflation, no banding. Irregular squamocolumnar junction. Mild erythema. Normal duodenum. No gastric varices Last colonoscopy: 2016 w/ local GI, 3 sessile polyps transverse colon, 1 sessile poly in descending colon, 1 sessile polyp in rectum, repeat in 2019 Other GI procedures/paracentesis: Last ECHO: None Home diuretics: Lasix Last EtOH use: None Last drug use: None Intake/Output 08/19/17 0700 - 08/20/17 0659 08/20/17 0700 - 08/21/17 0659 08/21/17 0700 - 08/22/17 0659 08/22/17 0700 - 08/23/17 0659 Intake (ml) 0 840 600 0 Output (ml) 043 986 2573 0 Net (ml) -300 440 -901 0 Interval Hx -HDS -Negative for DVT yesterday after + D Dimer, still RA, normocardic, no pain -labs processing Current Medications: CALCIUM CARBONATE/VITAMIN D3 (VITAMIN D-3 ORAL) Take by mouth. INSULIN DEGLUDEC (TRESIBA FLEXTOUCH U-100 SUBCUTANEOUS) Inject 40 Units subcutaneously twice daily. GLUCAGON EMERGENCY KIT, HUMAN, 1 mg injection ACCU-CHEK DISHA PLUS TEST STRP test strip USE 4 TIMES DAILY NOVOLOG FLEXPEN U-100 INSULIN 100 unit/mL inpn USE DIRECTED NEEDED SLIDING SCALE TRESIBA FLEXTOUCH U-200 200 unit/mL (3 mL) injection INJECT 50 UNIT(S) TWICE A DAY BY SUBCUTANEOUS ROUTE FOR 30 DAYS. furosemide (LASIX) 40 mg tablet Take 1 tablet by mouth once daily. elbasvir-grazoprevir (ZEPATIER) 50-100 mg tab Take 1 tablet by mouth once daily ramipril (ALTACE) 5 mg capsule Take 5 mg by mouth once daily. promethazine (PHENERGAN) 25 mg tablet Take 25 mg by mouth every 6 hours as needed. HYDROcodone-acetaminophen (NORCO) 5-325 mg per tablet Take 1 tablet by mouth every 6 hours as needed. levothyroxine (SYNTHROID) 137 mcg tablet Take 137 mcg by mouth daily before breakfast. clopidogrel (PLAVIX) 75 mg tablet Take 75 mg by mouth once daily. atorvastatin (LIPITOR) 40 mg tablet Take 40 mg by mouth once daily. insulin aspart (NOVOLOG) 100 units/ml Inject subcutaneously every 6 hours. aspirin, enteric coated (ASPIRIN, ENTERIC COATED) 81 mg EC tablet Take 81 mg by mouth once daily. carvedilol (COREG) 12.5 mg tablet Take 12.5 mg by mouth twice daily with meals. ferrous sulfate (IRON) 325 mg (65 mg iron) tablet Take 325 mg by mouth daily with breakfast. gabapentin (NEURONTIN) 300 mg capsule Take 300 mg by mouth twice daily. spironolactone (ALDACTONE) 25 mg tablet Take 25 mg by mouth once daily. pantoprazole DR (PROTONIX) 20 mg tablet Take 20 mg by mouth once daily. Nexium [Esomeprazole Magnesium] Physical Exam 08/21/17 0556 08/21/17 1408 08/21/17 2129 08/22/17 0510 BP: (!) 115/42 (!) 108/42 (!) 122/42 131/50 Pulse: 70 70 70 70 Resp: Temp: 36.6 ?C (97.8 ?F) 36.6 ?C (97.9 ?F) 36.7 ?C (98 ?F) 36.6 ?C (97.9 ?F) TempSrc: Oral Oral Oral Oral SpO2: 97% 98% 97% 96% Weight: 104 kg (229 lb 4.5 oz) Height: Temp Av.7 ?C (98.1 ?F) Min: 36.5 ?C (97.7 ?F) Max: 36.9 ?C (98.5 ?F) Pulse Av.5 Min: 67 Max: 71 No Data Recorded Cuff BP Min: 133/60 Max: 139/62 Body mass index is 39.36 kg/m?. BP 131/50 Pulse 70 Temp 36.6 ?C (97.9 ?F) (Oral) Resp 18 Ht 162.6 cm (5' 4) Wt 104 kg (229 lb 4.5 oz) SpO2 96% BMI 39.36 kg/m? General: No acute distress, AANDOx3. Skin: Intact, no lesions. Head: Normocephalic, atraumatic. Eyes: Anicteric sclera. PERRLA. EOMI. Oral: Lips, mucosa, tongue and gums normal. Neck: Supple. No JVD. Cardiovascular: RRR, no murmurs or gallops auscultated Respiratory: CTA b/l. No wheezing, rhonchi, or crackles. No respiratory distress. Abdomen: Soft, mild distension, non-tender. Bowel sounds normal. No organomegaly or masses. Genitourinary: No CVA tenderness. Back: No pain to palpation over spine. Extremities: 2 + Non-pitting peripheral edema b/l. No clubbing, cyanosis. Peripheral pulses + cap refill x 4. Musculoskeletal: No joint swelling, deformity, or tenderness. Neuro: Motor and sensory function grossly intact x 4 Psych: Normal affect, conversant. Intake/Output 08/19/17 0700 - 08/20/17 0659 08/20/17 0700 - 08/21/17 0659 08/21/17 0700 - 08/22/17 0659 08/22/17 0700 - 08/23/17 0659 Intake (ml) 0 840 600 0 Output (ml) 865 306 8849 0 Net (ml) -300 440 -901 0 Data Chest XR 08/19/17: IMPRESSION: Mild interstitial edema. RESULT: Lines, tubes, and devices: ?There is a left-sided ICD with leads terminating in the right atrium, right ventricle and coronary sinus. Lungs and pleura: ?Mild pulmonary vascular redistribution. ?No consolidation. No lung mass. No pleural effusion. Cardiomediastinal silhouette: Status post median sternotomy. ?Enlarged cardiomediastinal silhouette. Other: ?No acute osseous abnormality. CT A/P 08/19/17: IMPRESSION: NO ACUTE PROCESS IN THE ABDOMEN OR PELVIS. CHANGES OF CIRRHOSIS AND PORTAL HYPERTENSION. RESULT: Abdomen / Pelvis: Liver: Cirrhotic morphology. Biliary: S/p cholecystectomy. Spleen: Spleen measures approximately 14 cm in craniocaudal dimension. Pancreas: Atrophic. ?No obvious lesions or ductal dilatation Adrenals: No mass. Kidneys: No calculus, hydronephrosis or finding to suggest a mass in the unenhanced kidney. ?2.3 cm left superior pole cyst (2:45). Atrophic kidneys. GI Tract: No bowel dilation. Lymph Nodes: No lymphadenopathy. Mesentery/peritoneum: No ascites. Retroperitoneum: No mass. Vasculature: Arterial atherosclerotic disease without aneurysm. ?Multiple perigastric collaterals near the midline of the upper abdomen, sequela of portal hypertension. Pelvis: No mass or ascites. ?Status post hysterectomy. ?The bladder is unremarkable. ?There is a 0.7 cm calcification in the left ovary (2:106). Bones/Soft Tissues: Degenerative changes. ?There is a tiny fat-containing umbilical hernia. ?Nonspecific subcutaneous edema in the anterior abdominal wall in the pelvis. Lower thorax: Small right pleural effusion. ?There is mild right basilar atelectasis. Physical Exam 08/21/17 0556 08/21/17 1408 08/21/17 2129 08/22/17 0510 BP: (!) 115/42 (!) 108/42 (!) 122/42 131/50 Pulse: 70 70 70 70 Resp: 20 20 20 18 Temp: 36.6 ?C (97.8 ?F) 36.6 ?C (97.9 ?F) 36.7 ?C (98 ?F) 36.6 ?C (97.9 ?F) TempSrc: Oral Oral Oral Oral SpO2: 97% 98% 97% 96% Weight: 104 kg (229 lb 4.5 oz) Height: General: No acute distress, AANDOx3. Skin: Intact, no lesions. Head: Normocephalic, atraumatic. Eyes: Anicteric sclera. PERRLA. EOMI. Oral: Lips, mucosa, tongue and gums normal. Neck: Supple. No JVD. Cardiovascular: RRR, no murmurs or gallops auscultated Respiratory: CTA b/l. No wheezing, rhonchi, or crackles. No respiratory distress. Abdomen: Soft, mild distension, non-tender. Bowel sounds normal. No organomegaly or masses. Genitourinary: No CVA tenderness. Back: No pain to palpation over spine. Extremities: Non-pitting peripheral edema b/l. No clubbing, cyanosis. Peripheral pulses + cap refill x 4. Musculoskeletal: No joint swelling, deformity, or tenderness. Neuro: Motor and sensory function grossly intact x 4 Psych: Normal affect, conversant. Labs CBC: Recent Labs 08/21/17 0632 08/20/17 04008/19/17 1511 WBC 4.62 5.55 6.00 HB 8.6* 8.4* 9.9* PLT 67* 69* 80* MCV 100.0 100.8* 102.3* RDWCV 14.0 14.0 13.8 NEUTP -- -- 71.7 ABSNEUT -- -- 4.28 LYMPHP -- -- 16.3 MONOP -- -- 5.2 EODINP -- -- 6.0 COAG: Recent Labs 08/21/17 0632 08/20/17 0401 08/19/17 1511 INR 1.2 1.2 1.2 BMP: Recent Labs 08/21/17 0632 08/20/17 0401 08/19/17 1511 GLUC 57* 104* 94 NA 140 138 139 K 4.3 4.1 4.2 CHLOR 102 100 100 CO2 26 25 27 ANION 12 13 12 BUN 39* 36* 35* CREAT 1.92* 1.85* 1.78* CHEM: Recent Labs 08/21/17 0632 08/20/17 0401 08/19/17 1511 ALB 3.0* 3.0* 3.9 TPROT 7.0 6.8 8.2* CA 8.7 9.0 9.5 HEPATIC: Recent Labs 08/21/17 0632 08/20/17 0401 08/19/17 1511 ALKPHOS 77 78 89 ALT 8 8 9 AST 13 15 16 TBILI 0.7 0.8 0.7 CARDIAC: Recent Labs 08/20/17 0856 08/20/17 0400 08/19/17 1511 TROPT <0.010 <0.010 <0.010 PBNP -- -- 3,472* URINALYSIS:No results for input(s): PH, SPGR, UGLUC, UBILI, UKET, UHB, UPROT, UROBIL, UWBC, SSA in the last 168 hours. Invalid input(s): NITR Assessment and Plan Mrs. Kalyn Cain is a 67 yo female w/ PMHx Cirrhosis d/t chronic hepatitis C, disease c/b portal HTN and EV, CAD s/p CABG x4 (03/2004), h/o MN s/p defib placement (on ASA AND plavix), HF? No echo on EPID (on lasix 40mg BID), DMT2, CKD Atqso5e, macrocytic anemia who presents with #Volume overload CXR w/ mild interstitial edema in ED HDS, O2 sat 99% RA, non-pitting pedal edema NTpBNP 3472, up from 2700 on 08/01 EKG: BiV paced, no ST segment abnormalities Etiology: mild CHF exacerbation? vs. volume overload 2/2 cirrhosis? (unlikely w/ normal LFTs, albumin) Plan: -diuresis IV lasix 40mg QD, titrate based on volume status -Strict I/Os -TTE -Daily weights -Monitor SpO2 #Chest Pressure Mid-sternum, wrapping around to back NTpBNP 3472, up from 2700 on 08/01 EKG: BiV paced, no ST segment abnormalities CXR w/ mild interstitial edema in ED Etiology: interstitial edema vs. increased pressure from abdominal distension, unlikely ACS w/ unchanged EKG, negative troponin Plan: -Monitor for worsening sxs #HCV Cirrhosis HCV treated w/ Ben x12 weeks, eradicated per Dr. Pearson note Disease c/b portal HTN CT A/P (08/19): cirrhotic morphology #Elevated D-dimer -no tachycardia, no hypotension, no hypoxia -in setting of CKD and cirrhosis and possible CHF -obtained for chest pressure Chronic Medical conditions #HTN - continue ramipril #DMT2 -On tresiba 60units in AM w/ Novolog SSI Plan: Lantus 48U in AM w/ SSI #Hypothyroidism -Continue levothyroxine, check TSH #CAD s/p CABG x4 (03/2004), h/o MN - continue ASA, plavix #CKD Stage 4 Creatinine Date Value Ref Range Status 08/21/2017 1.92 (H) 0.58 - 0.96 mg/dL Final 08/20/2017 1.85 (H) 0.58 - 0.96 mg/dL Final 08/19/2017 1.78 (H) 0.58 - 0.96 mg/dL Final 01/08/2017 2.28 (H) 0.58 - 0.96 mg/dL Final Plan: -Strict I/O -Avoid nephrotoxic agents MAINTENANCE: # Diet - Electrolyte AND carb controlled # VTE PPx - SubQ Heparin 5000U q12h # Dispo Planning - Pending Titi Rivas MD Internal Medicine PGY-2 Pager [phone] August 22, 2017 6:36 AM Patient examined. Team notes reviewed and agree with findings and plan. Grady clinical findings were confirmed at the bedside. Discussed with patient and team, issues, options and plans. In brief, 67 year old female with HCV cirrhosis, portal hypertension, esophageal varices, CAD, CABG, orthopnea, severe dyspnea on exertion, heart failure, renal failure, . Major issues today: shortness of breath continues, unable to move, chest pressure cardiac enzymes negative Medications reviewed ROS: No headache, visual, auditory symptoms. No chest pain, severe shortness of breath, cough or wheezing. No abdominal pain, mild abd distention. No gi bleeding. No urinary symptoms. No loss of consciousness. Physical examination; No cervical lymphadenopathy HEENT- no thyroid enlargement no skin rash VSS, afebrile CVS: S1S2 normal, systolic murmur RS: Bilateral scattered crackles or rhonchi PA: Soft, no tenderness, mild distension, bowel sounds normal MANAGER PROPERTY: Alert, oriented x3. moves all 4 extremities, plantars downgoing, no flap Ext: 2+ edema. No calf tenderness Labs: Reviewed CBC, Coags, BMP, Mg, Phos Recent Labs 08/22/17 0505 08/21/17 0632 08/20/17 0401 WBC 5.11 4.62 5.55 HB 8.3* 8.6* 8.4* HCT 25.4* 26.5* 26.4* PLT 66* 67* 69* INR 1.2 1.2 1.2 NA 137 140 138 K 4.6 4.3 4.1 CHLOR 100 102 100 CO2 24 26 25 BUN 42* 39* 36* CREAT 2.04* 1.92* 1.85* GLUC 53* 57* 104* CA 8.6 8.7 9.0 Liver Function, Amylase, AND Lipase Recent Labs 08/22/17 0505 08/21/17 0632 08/20/17 0401 TPROT 7.0 7.0 6.8 ALB 3.4* 3.0* 3.0* ALT 9 8 8 AST 14 13 15 ALKPHOS 77 77 78 TBILI 0.7 0.7 0.8 MELD-Na score: 15 at 08/22/2017 5:05 AM MELD score: 15 at 08/22/2017 5:05 AM Calculated from: Serum Creatinine: 2.04 mg/dL at 08/22/2017 5:05 AM Serum Sodium: 137 mmol/L at 08/22/2017 5:05 AM Total Bilirubin: 0.7 mg/dL (Rounded to 1) at 08/22/2017 5:05 AM INR(ratio): 1.2 at 08/22/2017 5:05 AM Age: 67 years Plan: 1. Renal dysfunction worsening, 2.Cardiology input Wednesday, she shoujdl be on their service since her liver disease is not hte major issue 3.will continue diuretics one more day and then stop if renal function continues to deteriorate 4. DVT studies negative Marquis White MD Staff Physician Gastroenterology and Hepatology PROTIME Collected: 08/22/2017 Status: F Source: [place] 5:05 AM [facility] REPOSITORY TYPE CODE TESTS RESULT OUT OF RANGE REFERENCE UNITS LAB PSEC 9.7-13.0 sec PT Sec 12.2 LAB INR 0.9-1.3 PT INR 1.2 Result Comment: Vitamin K Antagonist (VKA) Therapeutic Range: INR 2 to 3 (Target INR of 2.5) Note: For patients treated with VKA drugs, such as warfarin, the [place] [employer] 2012 Guideline recommends a therapeutic INR range of 2 to 3 (target INR of 2.5). This recommendation includes high-risk patients with antiphospholipid syndrome with previous arterial or venous thromboembolism, current-generation mechanical or bioprosthetic aortic heart valve replacement. Note: Patients with mechanical aortic valve replacement and additional risk factors for thromboembolic events (atrial fibrillation, previous thromboembolism, LV dysfunction, hypercoagulable conditions) or an older generation mechanical AVR (i.e., ball in-Cage) or any mechanical MVR should have a INR therapeutic range of 2.5 to 3.5 (target INR of 3). Lana GH, et al. Chest 2012, 141:7S-47S Joce SMITH, et al. [facility] 2017, 70: 252-289 Performed By: #### PT, CMP, CBC #### [facility] [address] [place], [place] [address] COMP METABOLIC PANEL Collected: 08/22/2017 Status: F Source: [place] 5:05 AM [facility] REPOSITORY TYPE CODE TESTS RESULT OUT OF REFERENCE UNITS RANGE LAB TP 6.3-8.0 g/dL Protein, Total 7.0 LAB ALB 3.9-4.9 g/dL Low Albumin 3.4 LAB CA 8.5-10.2 mg/dL Calcium, Total 8.6 LAB TBIL 0.2-1.3 mg/dL Bilirubin, Total 0.7 LAB ALKP 32-117 U/L Alkaline Phosphatase 77 LAB AST 13-35 U/L AST 14 LAB GLU 74-99 mg/dL Low Glucose 53 Result Comment: The [place] [employer] Association (ADA) provides guidance for cutoff values for fasting glucose and random glucose. The ADA defines fasting as no caloric intake for at least 8 hours. Fas ting plasma glucose results between 100 to 125 mg/dL indicate increased risk for diabetes (prediabetes). Fasting plasma glucose results greater than or equal to 126 mg/dL meet the criteria for diagnosis of diabetes. In the absence of unequivocal hyperglycemia, results should be confirmed by repeat testing. In a patient with classic symptoms of hyperglycemia or hyperglycemic crisis, random plasma glucose results greater than or equal to 200 mg/dL meet the criteria for diagnosis of diabetes. Reference: Standards of Medical Care in Diabetes 2016, [place] [employer] Association. Diabetes Care. 2016.39(Suppl 1). LAB BUN 7-21 mg/dL BUN High 42 LAB CRET 0.58-0.96 mg/dL Creatinine High 2.04 LAB NA 136-144 mmol/L Sodium 137 LAB K 3.7-5.1 mmol/L Potassium 4.6 LAB CL 97-105 mmol/L Chloride 100 LAB CO2 22-30 mmol/L CO2 24 LAB AGAP 9-18 mmol/L Anion Gap 13 LAB ALT 7-38 U/L ALT 9 LAB GFRAA eGFR- Amer. 29 LAB GFRNAA . eGFR-All Other Races 24 Result Comment: eGFR (Estimated GFR) Units of measure: mL/min/1.73 meters squared eGFR is derived from the reexpressed MDRD Study equation using the following parameters: serum creatinine, age, gender and race. The creatinine assay has been calibrated to be traceable to IDMS. An eGFR <60 mL/min/1.73m2 for >3 months is consistent with chronic kidney disease. Refer to KDOQI guidelines for clinical interpretation. In patients with unstable renal function, e.g. those with acute kidney injury, the eGFR may not accurately reflect actual GFR. Performed By: #### PT, CMP, CBC #### [facility] [employer] [address] [place], [place] [address] CBC Collected: 08/22/2017 Status: F Source: [place] 5:05 AM [facility] REPOSITORY TYPE CODE TESTS RESULT OUT OF REFERENCE UNITS RANGE LAB WBC 3.70-11.00 k/uL WBC 5.11 LAB RBC 3.90-5.20 m/uL Low RBC 2.57 LAB HGB 11.5-15.5 g/dL Low Hemoglobin 8.3 LAB HCT 36.0-46.0 % Low Hematocrit 25.4 LAB MCV 80.0-100.0 fL MCV 98.8 LAB MCH 26.0-34.0 pG MCH 32.3 LAB MCHC 30.5-36.0 g/dL MCHC 32.7 LAB RDWCV 11.5-15.0 % RDW-CV 13.8 LAB PLTCT 150-400 k/uL Low Platelet Count 66 Result Comment: No clot detected. LAB MPV 9.0-12.7 fL MPV 11.6 LAB ABSNUC <0.01 k/uL Absolute nRBC <0.01 Performed By: #### PT, CMP, CBC #### [facility] [employer] [address] [place], [place] [address] PROGRESS Observed: 08/21/2017 Status: COMPLETED Source: [place] 6:54 AM [facility] REPOSITORY HNO ID: [id number] Author: Marquis White Service: Hepatology Author Type: Physician Type: Progress Notes Filed: 08/21/2017 8:57 AM Note Text: HEPATOLOGY -GREEN TEAM Progress Note PATIENT NAME: Kalyn Cain PRIMARY TEAM: Hepatology Weekdays 7 am to 5 pm/Weekend 7 am to 3 pm: Page [phone] (Guitar Instructor- Richard Morgan) then [phone] (Senior- Clement Chester) Weekdays 5 pm to 7 am/Weekend 3 pm to 7 am: Carriage Operator Pager [phone] PRIMARY CARE PHYSICIAN: Mary Ramirez DO Patient Summary Kalyn Cain is a 67 year old female with PMHx -Cirrhosis d/t Hepatitis C 1a (Tx w/ Zepatier x12 weeks, SVR per Dr. Pearson note) no biopsy on record, disease c/b portal HTN w/ EV (noted on EGD 05/12, very small, on Coreg), no hx of paracentesis (on 40mg lasix daily at home) -Follows with hepatology, Dr. Pearson -CAD s/p CABG x4 (03/2004), h/o MN s/p defib placement, on ASA AND plavix -HF? No echo on EPIC (on lasix 40mg BID) -DMT2 -CKD [id number] -Chronic macrocytic anemia Patient presented to ED on 08/19/17 d/t CT scan performed locally showing swelling around liver AND spleen. Her local doctor recommended she f/u at [facility] due to history of cirrhosis. Of note, patient reports over the last 2-3 weeks she has had progressively worsening SOB, BENNETT, orthopnea, and BLE swelling. Symptoms have worsened to the point where she has been sleeping in the recliner at home. Denies supp O2 or inhaler use. No recent weight change. She describes acute chest pressure over last couple of days that starts near the sternum and wraps around the entire abdomen and lower chest radiating around the back. CT abd shows no ascites, no acute process, just cirrhosis. CXR shows pulm edema. Cardiac enzymes negative. NT Pro BNP elevated to 3472. MELD-Na score: 15 at 08/20/2017 4:01 AM MELD score: 15 at 08/20/2017 4:01 AM Calculated from: Serum Creatinine: 1.85 mg/dL at 08/20/2017 4:01 AM Serum Sodium: 138 mmol/L (Rounded to 137) at 08/20/2017 4:01 AM Total Bilirubin: 0.8 mg/dL (Rounded to 1) at 08/20/2017 4:01 AM INR(ratio): 1.2 at 08/20/2017 4:01 AM Age: 67 years Date of diagnosis: HCV ~2002, cirrhosis ~[id number] Biopsy proven: No OLT listed: No Last EGD:05/25/16 Single, column very small EV which flattened with minimal air sufflation, no banding. Irregular squamocolumnar junction. Mild erythema. Normal duodenum. No gastric varices Last colonoscopy: 2016 w/ local GI, 3 sessile polyps transverse colon, 1 sessile poly in descending colon, 1 sessile polyp in rectum, repeat in 2019 Other GI procedures/paracentesis: Last ECHO: None Home diuretics: Lasix Last EtOH use: None Last drug use: None Current Medications: CALCIUM CARBONATE/VITAMIN D3 (VITAMIN D-3 ORAL) Take by mouth. INSULIN DEGLUDEC (TRESIBA FLEXTOUCH U-100 SUBCUTANEOUS) Inject 40 Units subcutaneously twice daily. GLUCAGON EMERGENCY KIT, HUMAN, 1 mg injection ACCU-CHEK DISHA PLUS TEST STRP test strip USE 4 TIMES DAILY NOVOLOG FLEXPEN U-100 INSULIN 100 unit/mL inpn USE DIRECTED NEEDED SLIDING SCALE TRESIBA FLEXTOUCH U-200 200 unit/mL (3 mL) injection INJECT 50 UNIT(S) TWICE A DAY BY SUBCUTANEOUS ROUTE FOR 30 DAYS. furosemide (LASIX) 40 mg tablet Take 1 tablet by mouth once daily. elbasvir-grazoprevir (ZEPATIER) 50-100 mg tab Take 1 tablet by mouth once daily ramipril (ALTACE) 5 mg capsule Take 5 mg by mouth once daily. promethazine (PHENERGAN) 25 mg tablet Take 25 mg by mouth every 6 hours as needed. HYDROcodone-acetaminophen (NORCO) 5-325 mg per tablet Take 1 tablet by mouth every 6 hours as needed. levothyroxine (SYNTHROID) 137 mcg tablet Take 137 mcg by mouth daily before breakfast. clopidogrel (PLAVIX) 75 mg tablet Take 75 mg by mouth once daily. atorvastatin (LIPITOR) 40 mg tablet Take 40 mg by mouth once daily. insulin aspart (NOVOLOG) 100 units/ml Inject subcutaneously every 6 hours. aspirin, enteric coated (ASPIRIN, ENTERIC COATED) 81 mg EC tablet Take 81 mg by mouth once daily. carvedilol (COREG) 12.5 mg tablet Take 12.5 mg by mouth twice daily with meals. ferrous sulfate (IRON) 325 mg (65 mg iron) tablet Take 325 mg by mouth daily with breakfast. gabapentin (NEURONTIN) 300 mg capsule Take 300 mg by mouth twice daily. spironolactone (ALDACTONE) 25 mg tablet Take 25 mg by mouth once daily. pantoprazole DR (PROTONIX) 20 mg tablet Take 20 mg by mouth once daily. Nexium [Esomeprazole Magnesium] Physical Exam 08/20/17 1332 08/20/17 1732 08/20/17 2147 08/21/17 0556 BP: 100/54 126/54 119/50 (!) 115/42 Pulse: 65 70 70 70 Resp: 20 20 20 20 Temp: 36.5 ?C (97.7 ?F) 36.6 ?C (97.9 ?F) 36.7 ?C (98 ?F) 36.6 ?C (97.8 ?F) TempSrc: Oral Oral Oral Oral SpO2: 99% 100% 98% 97% Weight: Height: Temp Av.7 ?C (98.1 ?F) Min: 36.5 ?C (97.7 ?F) Max: 36.9 ?C (98.5 ?F) Pulse Av.5 Min: 67 Max: 71 No Data Recorded Cuff BP Min: 133/60 Max: 139/62 Body mass index is 40.78 kg/m?. BP (!) 115/42 Pulse 70 Temp 36.6 ?C (97.8 ?F) (Oral) Resp 20 Ht 162.6 cm (5' 4) Wt 107.8 kg (237 lb 9.6 oz) SpO2 97% BMI 40.78 kg/m? General: No acute distress, AANDOx3. Skin: Intact, no lesions. Head: Normocephalic, atraumatic. Eyes: Anicteric sclera. PERRLA. EOMI. Oral: Lips, mucosa, tongue and gums normal. Neck: Supple. No JVD. Cardiovascular: RRR, no murmurs or gallops auscultated Respiratory: CTA b/l. No wheezing, rhonchi, or crackles. No respiratory distress. Abdomen: Soft, mild distension, non-tender. Bowel sounds normal. No organomegaly or masses. Genitourinary: No CVA tenderness. Back: No pain to palpation over spine. Extremities: 2 + Non-pitting peripheral edema b/l. No clubbing, cyanosis. Peripheral pulses + cap refill x 4. Musculoskeletal: No joint swelling, deformity, or tenderness. Neuro: Motor and sensory function grossly intact x 4 Psych: Normal affect, conversant. Intake/Output 08/19/17 0700 - 08/20/17 0659 08/20/17 0700 - 08/21/17 0659 08/21/17 0700 - 08/22/17 0659 Intake (ml) 0 840 0 Output (ml) 300 400 0 Net (ml) -300 440 0 Data Chest XR 08/19/17: IMPRESSION: Mild interstitial edema. RESULT: Lines, tubes, and devices: ?There is a left-sided ICD with leads terminating in the right atrium, right ventricle and coronary sinus. Lungs and pleura: ?Mild pulmonary vascular redistribution. ?No consolidation. No lung mass. No pleural effusion. Cardiomediastinal silhouette: Status post median sternotomy. ?Enlarged cardiomediastinal silhouette. Other: ?No acute osseous abnormality. CT A/P 08/19/17: IMPRESSION: NO ACUTE PROCESS IN THE ABDOMEN OR PELVIS. CHANGES OF CIRRHOSIS AND PORTAL HYPERTENSION. RESULT: Abdomen / Pelvis: Liver: Cirrhotic morphology. Biliary: S/p cholecystectomy. Spleen: Spleen measures approximately 14 cm in craniocaudal dimension. Pancreas: Atrophic. ?No obvious lesions or ductal dilatation Adrenals: No mass. Kidneys: No calculus, hydronephrosis or finding to suggest a mass in the unenhanced kidney. ?2.3 cm left superior pole cyst (2:45). Atrophic kidneys. GI Tract: No bowel dilation. Lymph Nodes: No lymphadenopathy. Mesentery/peritoneum: No ascites. Retroperitoneum: No mass. Vasculature: Arterial atherosclerotic disease without aneurysm. ?Multiple perigastric collaterals near the midline of the upper abdomen, sequela of portal hypertension. Pelvis: No mass or ascites. ?Status post hysterectomy. ?The bladder is unremarkable. ?There is a 0.7 cm calcification in the left ovary (2:106). Bones/Soft Tissues: Degenerative changes. ?There is a tiny fat-containing umbilical hernia. ?Nonspecific subcutaneous edema in the anterior abdominal wall in the pelvis. Lower thorax: Small right pleural effusion. ?There is mild right basilar atelectasis. Physical Exam 08/20/17 1332 08/20/17 1732 08/20/17 2147 08/21/17 0556 BP: 100/54 126/54 119/50 (!) 115/42 Pulse: 65 70 70 70 Resp: 20 20 20 20 Temp: 36.5 ?C (97.7 ?F) 36.6 ?C (97.9 ?F) 36.7 ?C (98 ?F) 36.6 ?C (97.8 ?F) TempSrc: Oral Oral Oral Oral SpO2: 99% 100% 98% 97% Weight: Height: General: No acute distress, AANDOx3. Skin: Intact, no lesions. Head: Normocephalic, atraumatic. Eyes: Anicteric sclera. PERRLA. EOMI. Oral: Lips, mucosa, tongue and gums normal. Neck: Supple. No JVD. Cardiovascular: RRR, no murmurs or gallops auscultated Respiratory: CTA b/l. No wheezing, rhonchi, or crackles. No respiratory distress. Abdomen: Soft, mild distension, non-tender. Bowel sounds normal. No organomegaly or masses. Genitourinary: No CVA tenderness. Back: No pain to palpation over spine. Extremities: Non-pitting peripheral edema b/l. No clubbing, cyanosis. Peripheral pulses + cap refill x 4. Musculoskeletal: No joint swelling, deformity, or tenderness. Neuro: Motor and sensory function grossly intact x 4 Psych: Normal affect, conversant. Labs CBC: Recent Labs 08/20/17 0401 08/19/17 1511 WBC 5.55 6.00 HB 8.4* 9.9* PLT 69* 80* MCV 100.8* 102.3* RDWCV 14.0 13.8 NEUTP -- 71.7 ABSNEUT -- 4.28 LYMPHP -- 16.3 MONOP -- 5.2 EODINP -- 6.0 COAG: Recent Labs 08/20/17 0401 08/19/17 1511 INR 1.2 1.2 BMP: Recent Labs 08/20/17 0401 08/19/17 1511 GLUC 104* 94 NA 138 139 K 4.1 4.2 CHLOR 100 100 CO2 25 27 ANION 13 12 BUN 36* 35* CREAT 1.85* 1.78* CHEM: Recent Labs 08/20/17 0401 08/19/17 1511 ALB 3.0* 3.9 TPROT 6.8 8.2* CA 9.0 9.5 HEPATIC: Recent Labs 08/20/17 0401 08/19/17 1511 ALKPHOS 78 89 ALT 8 9 AST 15 16 TBILI 0.8 0.7 CARDIAC: Recent Labs 08/20/17 0856 08/20/17 0400 08/19/17 1511 TROPT <0.010 <0.010 <0.010 PBNP -- -- 3,472* URINALYSIS:No results for input(s): PH, SPGR, UGLUC, UBILI, UKET, UHB, UPROT, UROBIL, UWBC, SSA in the last 168 hours. Invalid input(s): NITR Assessment and Plan Mrs. Kalyn Cain is a 67 yo female w/ PMHx Cirrhosis d/t chronic hepatitis C, disease c/b portal HTN and EV, CAD s/p CABG x4 (03/2004), h/o MN s/p defib placement (on ASA AND plavix), HF? No echo on EPID (on lasix 40mg BID), DMT2, CKD [id number], macrocytic anemia who presents with #Volume overload CXR w/ mild interstitial edema in ED HDS, O2 sat 99% RA, non-pitting pedal edema NTpBNP 3472, up from 2700 on 08/01 EKG: BiV paced, no ST segment abnormalities Etiology: mild CHF exacerbation? vs. volume overload 2/2 cirrhosis? (unlikely w/ normal LFTs, albumin) Plan: -diuresis IV lasix 40mg QD, titrate based on volume status -Strict I/Os -TTE -Daily weights -Monitor SpO2 #Chest Pressure Mid-sternum, wrapping around to back NTpBNP 3472, up from 2700 on 08/01 EKG: BiV paced, no ST segment abnormalities CXR w/ mild interstitial edema in ED Etiology: interstitial edema vs. increased pressure from abdominal distension, unlikely ACS w/ unchanged EKG, negative troponin Plan: -Monitor for worsening sxs #HCV Cirrhosis HCV treated w/ Zepatier x12 weeks, eradicated per Dr. Pearson note Disease c/b portal HTN CT A/P (08/19): cirrhotic morphology #Elevated D-dimer -no tachycardia, no hypotension, no hypoxia -in setting of CKD and cirrhosis and possible CHF -obtained for chest pressure Chronic Medical conditions #HTN - continue ramipril #DMT2 -On tresiba 60units in AM w/ Novolog SSI Plan: Lantus 48U in AM w/ SSI #Hypothyroidism -Continue levothyroxine, check TSH #CAD s/p CABG x4 (03/2004), h/o MN - continue ASA, plavix #CKD Stage 4 Creatinine Date Value Ref Range Status 08/20/2017 1.85 (H) 0.58 - 0.96 mg/dL Final 08/19/2017 1.78 (H) 0.58 - 0.96 mg/dL Final 01/08/2017 2.28 (H) 0.58 - 0.96 mg/dL Final 11/09/2016 2.07 (H) 0.58 - 0.96 mg/dL Final Plan: -Strict I/O -Avoid nephrotoxic agents MAINTENANCE: # Diet - Electrolyte AND carb controlled # VTE PPx - SubQ Heparin 5000U q12h # Dispo Planning - Pending Titi Rivas MD Internal Medicine PGY-2 Pager [phone] August 21, 2017 6:56 AM Note: These recommendations are not final until staffed by provider Patient examined. Team notes reviewed and agree with findings and plan. Grady clinical findings were confirmed at the bedside. Discussed with patient and team, issues, options and plans. In brief, 67 year old female with HCV cirrhosis, portal hypertension, esophageal varices, no ascites, CAD CABG in 2003 with defibrillator, renal failure, not on dialysis, diabetes mellitus, admitted with shortness of breath, chest discomfort, cardiac enzymes and EKG negative, CT abdomen no acute changes . Major issues today: abd pain, shortness of breath Medications reviewed ROS: No headache, visual, auditory symptoms. No chest pain, moderae shortness of breath, cough or wheezing. No abdominal pain, no abd distention. No gi bleeding. No urinary symptoms. No loss of consciousness. Physical examination; No cervical lymphadenopathy HEENT- no thyroid enlargement no skin rash VSS, afebrile CVS: S1S2 normal, no murmurs RS: Bilateral scattered crackles or rhonchi PA: Soft, no tenderness, mild distension, bowel sounds normal MANAGER PROPERTY: Alert, oriented x3. moves all 4 extremities, plantars downgoing, no flap Ext: 2+ edema. No calf tenderness Labs: Reviewed CBC, Coags, BMP, Mg, Phos Recent Labs 08/21/17 0632 08/20/17 0401 08/19/17 1511 WBC -- 5.55 6.00 HB -- 8.4* 9.9* HCT -- 26.4* 30.8* PLT -- 69* 80* INR 1.2 1.2 1.2 NA 140 138 139 K 4.3 4.1 4.2 CHLOR 102 100 100 CO2 26 25 27 BUN 39* 36* 35* CREAT 1.92* 1.85* 1.78* GLUC 57* 104* 94 CA 8.7 9.0 9.5 Liver Function, Amylase, AND Lipase Recent Labs 08/21/17 0632 08/20/17 0401 08/19/17 1511 TPROT 7.0 6.8 8.2* ALB 3.0* 3.0* 3.9 ALT 8 8 9 AST 13 15 16 ALKPHOS 77 78 89 TBILI 0.7 0.8 0.7 MELD-Na score: 15 at 08/21/2017 6:32 AM MELD score: 15 at 08/21/2017 6:32 AM Calculated from: Serum Creatinine: 1.92 mg/dL at 08/21/2017 6:32 AM Serum Sodium: 140 mmol/L (Rounded to 137) at 08/21/2017 6:32 AM Total Bilirubin: 0.7 mg/dL (Rounded to 1) at 08/21/2017 6:32 AM INR(ratio): 1.2 at 08/21/2017 6:32 AM Age: 67 years Plan: 1. DVT legs evaluation 2.CArdiac echo 3.Renal dysfunction, cause unclear, will try diuretics 4. Cardiology input on Wednesday 5. Cirrhosis HCV no active issues except possibly pulmonary complications Marquis White MD Staff Physician Gastroenterology and Hepatology PROTIME Collected: 08/21/2017 Status: F Source: [place] 6:32 AM [facility] REPOSITORY TYPE CODE TESTS RESULT OUT OF RANGE REFERENCE UNITS LAB PSEC 9.7-13.0 sec PT Sec 12.1 LAB INR 0.9-1.3 PT INR 1.2 Result Comment: Vitamin K Antagonist (VKA) Therapeutic Range: INR 2 to 3 (Target INR of 2.5) Note: For patients treated with VKA drugs, such as warfarin, the [place] [employer] 2012 Guideline recommends a therapeutic INR range of 2 to 3 (target INR of 2.5). This recommendation includes high-risk patients with antiphospholipid syndrome with previous arterial or venous thromboembolism, current-generation mechanical or bioprosthetic aortic heart valve replacement. Note: Patients with mechanical aortic valve replacement and additional risk factors for thromboembolic events (atrial fibrillation, previous thromboembolism, LV dysfunction, hypercoagulable conditions) or an older generation mechanical AVR (i.e., ball in-Cage) or any mechanical MVR should have a INR therapeutic range of 2.5 to 3.5 (target INR of 3). Lana GH, et al. Chest 2012, 141:7S-47S Joce RA, et al. [facility] 2017, 70: 252-289 Performed By: #### PT, CMP, CBC #### [facility] [address] [address] COMP METABOLIC PANEL Collected: 08/21/2017 Status: F Source: [place] 6:32 AM [facility] REPOSITORY TYPE CODE TESTS RESULT OUT OF REFERENCE UNITS RANGE LAB TP 6.3-8.0 g/dL Protein, Total 7.0 LAB ALB 3.9-4.9 g/dL Low Albumin 3.0 LAB CA 8.5-10.2 mg/dL Calcium, Total 8.7 LAB TBIL 0.2-1.3 mg/dL Bilirubin, Total 0.7 LAB ALKP 32-117 U/L Alkaline Phosphatase 77 LAB AST 13-35 U/L AST 13 LAB GLU 74-99 mg/dL Low Glucose 57 Result Comment: The [place] Diabetes Association (ADA) provides guidance for cutoff values for fasting glucose and random glucose. The ADA defines fasting as no caloric intake for at least 8 hours. Fas ting plasma glucose results between 100 to 125 mg/dL indicate increased risk for diabetes (prediabetes). Fasting plasma glucose results greater than or equal to 126 mg/dL meet the criteria for diagnosis of diabetes. In the absence of unequivocal hyperglycemia, results should be confirmed by repeat testing. In a patient with classic symptoms of hyperglycemia or hyperglycemic crisis, random plasma glucose results greater than or equal to 200 mg/dL meet the criteria for diagnosis of diabetes. Reference: Standards of Medical Care in Diabetes 2016, [place] Diabetes Association. Diabetes Care. 2016.39(Suppl 1). LAB BUN 7-21 mg/dL BUN High 39 LAB CRET 0.58-0.96 mg/dL Creatinine High 1.92 LAB NA 136-144 mmol/L Sodium 140 LAB K 3.7-5.1 mmol/L Potassium 4.3 LAB CL 97-105 mmol/L Chloride 102 LAB CO2 22-30 mmol/L CO2 26 LAB AGAP 9-18 mmol/L Anion Gap 12 LAB ALT 7-38 U/L ALT 8 LAB GFRAA eGFR- Amer. 32 LAB GFRNAA . eGFR-All Other Races 26 Result Comment: eGFR (Estimated GFR) Units of measure: mL/min/1.73 meters squared eGFR is derived from the reexpressed MDRD Study equation using the following parameters: serum creatinine, age, gender and race. The creatinine assay has been calibrated to be traceable to IDMS. An eGFR <60 mL/min/1.73m2 for >3 months is consistent with chronic kidney disease. Refer to KDOQI guidelines for clinical interpretation. In patients with unstable renal function, e.g. those with acute kidney injury, the eGFR may not accurately reflect actual GFR. Performed By: #### PT, CMP, CBC #### [facility] [address] [id number] CBC Collected: 08/21/2017 Status: F Source: [place] 6:32 AM [facility] REPOSITORY TYPE CODE TESTS RESULT OUT OF REFERENCE UNITS RANGE LAB WBC 3.70-11.00 k/uL WBC 4.62 LAB RBC 3.90-5.20 m/uL Low RBC 2.65 LAB HGB 11.5-15.5 g/dL Low Hemoglobin 8.6 LAB HCT 36.0-46.0 % Low Hematocrit 26.5 LAB MCV 80.0-100.0 fL MCV 100.0 LAB MCH 26.0-34.0 pG MCH 32.5 LAB MCHC 30.5-36.0 g/dL MCHC 32.5 LAB RDWCV 11.5-15.0 % RDW-CV 14.0 LAB PLTCT 150-400 k/uL Low Platelet Count 67 Result Comment: No clot detected. LAB MPV 9.0-12.7 fL MPV 11.9 LAB ABSNUC <0.01 k/uL Absolute nRBC <0.01 Performed By: #### PT, CMP, CBC #### [facility] [address] [place], [place] [address] PROGRESS Observed: 08/21/2017 Status: COMPLETED Source: [place] 4:22 AM [facility] REPOSITORY HNO ID: [id number] Author: Downtime Note Service: (none) Author Type: (none) Type: Progress Notes Filed: 08/21/2017 4:26 AM Note Text: Epic Scheduled Downtime: 08/20/2017 11:34:32 PM to 08/21/2017 4:17:42 AM HX ANTIBODY Collected: 08/20/2017 Status: P Source: [facility] 1:34 PM [facility] REPOSITORY TYPE CODE TESTS RESULT OUT OF RANGE REFERENCE UNITS LAB TPI(LOINC) Unknown Hx Antibody Anti-JkA Result Comment: 08/20/2017 13:36 [id number] [facility] notified us they identified Anti-Jka on 08-19-17 Performed By: #### HXANTI #### [facility] [address] [place] [id number] CASE MGT INIT Observed: 08/20/2017 Status: COMPLETED Source: 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 Health Issues Impacting Discharge Plan: None Last Admission Date: none Is this Within the Past 30 days? No Advance Directive: Health Literacy: 1. How often do you need to have someone help you when you read instructions, pamphlets, or other written material from your doctor or pharmacy? Never - 1 2. How confident are you filling out medical forms by yourself? Extremely - 1 If Patient scores > 3 on either question, the following interventions were put into place: Forms of communication used with patient and family, Sit with Patient and Patient did not score > 3 FUNCTIONAL AND COGNITIVE/BEHAVIORAL PRIOR TO ADMISSION: Baseline Mental Status: Alert AND Oriented, Person, Place , Time and Situation Functional Status: Independent Does Patient Currently Receive Any Community Services or Home Care? None Equipment Prior to Admission: None Has the Patient Been in a Jail Facility in the Past 30 days? No SOCIAL: Living Arrangement: Home Lives With: Spouse Financial Resources: Retired Primary Contact: Extended Emergency Contact Information Primary Emergency Contact: Simon Cain Address: [address] [place] [address] Relation: Spouse Supportive: Yes Other Important Patient Contacts: None Caregiver Assessment: Caregiver is ready, willing and able to meet the patient's needs as recommended by the inter-professional team? Yes Patient's transition needs and plan for meeting these needs: home with no needs Does the patient have an acute stroke diagnosis, or has the patient had a stroke during this admission? No Medication Adherence: I am convinced of the importance of my prescription medication: Agree completely - 0 I worry that my prescription medication will do more harm than good to me Disagree completely - 0 I feel financially burdened by my [id number]-dwtaxf expenses for my prescription medication: Agree somewhat - 0 Patient is categorized as low risk < 2 Are you interested in bedside delivery of your medications? No Food Concerns: In the Last Month, Have You had Trouble Getting Food? No trouble getting food During the Last Month, Have You Worried Whether Your Food Would Run Out Before You Had Enough Money to Buy More? No Is the Patient Psychosocially Complex? No ASSESSMENT AND PLAN: Medical Needs: Diabetes - Education Psychosocial Needs: None FREEDOM OF CHOICE EXPLAINED: N/A POTENTIAL TRANSITION PLANS Diabetic Education respiratory services manager met with patient at bedside. Explained role of o and m supervisor and discharge planning. Pt 's discussion concerning cost of insulin pens. Inquired if patient has check different pharmacies or stores for cost of insulin pens, Also advised Need for consult with diabetic education. Will page doctor for patients needs. ? SIGNATURE: Quyen Ansari RN PATIENT NAME: Kalyn Cain DATE: August 20, 2017 TIME: 10:33 AM PAGER/CONTACT #: [phone] XR CHEST 2V FRONTAL/LAT Observed: 08/20/2017 Status: F Source: [place] 9:29 AM [facility] REPOSITORY * * *Final Report* * * DATE OF EXAM: Aug 20 2017 9:29AM MARCELLA [id number] - XR CHEST 2V FRONTAL/LAT / PROCEDURE REASON: Pulmonary edema * * * * Physician Interpretation * * * * EXAMINATION: CHEST RADIOGRAPH (2 VIEW FRONTAL and LATERAL) Clinical History: Pulmonary edema M: XC2_4 Comparison: 1 day earlier RESULT: Lines, tubes, and devices: Stable ICD. Lungs and pleura: Tiny right effusion and scattered lower lung atelectasis with borderline interstitial edema. No new consolidations. No pneumothorax. Cardiomediastinal silhouette: Stable cardiac silhouette enlargement. Other: Degenerative changes of the thoracic spine. IMPRESSION: See Result. Sample Coordinator: PSCKelley Transcribe Date/Time: Aug 20 2017 10:56A Dictated by : ABELINO FERNANDEZ MD This examination was interpreted and the report reviewed and electronically signed by: ABELINO FERNANDEZ MD on Aug 20 2017 11:00AM EST [id number] TROPONIN T Collected: 08/20/2017 Status: F Source: [place] 8:56 AM [facility] REPOSITORY TYPE CODE TESTS RESULT OUT OF REFERENCE UNITS RANGE LAB TROPT 0.000-0.029 ng/mL Troponin T <0.010 Performed By: #### PRATIMA #### [facility] [address] [place], [place] [address] PROTIME Collected: 08/20/2017 Status: F Source: [place] 4:01 AM [facility] REPOSITORY TYPE CODE TESTS RESULT OUT OF RANGE REFERENCE UNITS LAB PSEC 9.7-13.0 sec PT Sec 12.5 LAB INR 0.9-1.3 PT INR 1.2 Result Comment: Vitamin K Antagonist (VKA) Therapeutic Range: INR 2 to 3 (Target INR of 2.5) Note: For patients treated with VKA drugs, such as warfarin, the [place] College of Chest Physicians 2012 Guideline recommends a therapeutic INR range of 2 to 3 (target INR of 2.5). This recommendation includes high-risk patients with antiphospholipid syndrome with previous arterial or venous thromboembolism, current-generation mechanical or bioprosthetic aortic heart valve replacement. Note: Patients with mechanical aortic valve replacement and additional risk factors for thromboembolic events (atrial fibrillation, previous thromboembolism, LV dysfunction, hypercoagulable conditions) or an older generation mechanical AVR (i.e., ball in-Cage) or any mechanical MVR should have a INR therapeutic range of 2.5 to 3.5 (target INR of 3). Lana GH, et al. Chest 2012, 141:7S-47S Joce RA, et al. [facility] 2017, 70: 252-289 Performed By: #### PT, CBC, CMP #### [facility] [employer] [address] [place], [place] [address] CBC Collected: 08/20/2017 Status: F Source: [place] 4:01 [facility] REPOSITORY TYPE CODE TESTS RESULT OUT OF REFERENCE UNITS RANGE LAB WBC 3.70-11.00 k/uL WBC 5.55 LAB RBC 3.90-5.20 m/uL Low RBC 2.62 LAB HGB 11.5-15.5 g/dL Low Hemoglobin 8.4 LAB HCT 36.0-46.0 % Low Hematocrit 26.4 LAB MCV 80.0-100.0 fL MCV High 100.8 LAB MCH 26.0-34.0 pG MCH 32.1 LAB MCHC 30.5-36.0 g/dL MCHC 31.8 LAB RDWCV 11.5-15.0 % RDW-CV 14.0 LAB PLTCT 150-400 k/uL Low Platelet Count 69 Result Comment: No clot detected. LAB MPV 9.0-12.7 fL MPV 11.4 LAB ABSNUC <0.01 k/uL Absolute nRBC <0.01 Performed By: #### PT, CBC, CMP #### [facility] [employer] [address] [place], [place] [address] COMP METABOLIC PANEL Collected: 08/20/2017 Status: F Source: [place] 4:01 [facility] REPOSITORY TYPE CODE TESTS RESULT OUT OF REFERENCE UNITS RANGE LAB TP 6.3-8.0 g/dL Protein, Total 6.8 LAB ALB 3.9-4.9 g/dL Low Albumin 3.0 Result Comment: Result rechecked. LAB CA 8.5-10.2 mg/dL Calcium, Total 9.0 LAB TBIL 0.2-1.3 mg/dL Bilirubin, Total 0.8 LAB ALKP 32-117 U/L Alkaline Phosphatase 78 LAB AST 13-35 U/L AST 15 LAB GLU 74-99 mg/dL Glucose High 104 Result Comment: The [place] Diabetes Association (ADA) provides guidance for cutoff values for fasting glucose and random glucose. The ADA defines fasting as no caloric intake for at least 8 hours. Fas ting plasma glucose results between 100 to 125 mg/dL indicate increased risk for diabetes (prediabetes). Fasting plasma glucose results greater than or equal to 126 mg/dL meet the criteria for diagnosis of diabetes. In the absence of unequivocal hyperglycemia, results should be confirmed by repeat testing. In a patient with classic symptoms of hyperglycemia or hyperglycemic crisis, random plasma glucose results greater than or equal to 200 mg/dL meet the criteria for diagnosis of diabetes. Reference: Standards of Medical Care in Diabetes 2016, [place] Diabetes Association. Diabetes Care. 2016.39(Suppl 1). LAB BUN 7-21 mg/dL BUN High 36 LAB CRET 0.58-0.96 mg/dL Creatinine High 1.85 LAB NA 136-144 mmol/L Sodium 138 LAB K 3.7-5.1 mmol/L Potassium 4.1 LAB CL 97-105 mmol/L Chloride 100 LAB CO2 22-30 mmol/L CO2 25 LAB AGAP 9-18 mmol/L Anion Gap 13 LAB ALT 7-38 U/L ALT 8 LAB GFRAA eGFR- Amer. 33 LAB GFRNAA . eGFR-All Other Races 27 Result Comment: eGFR (Estimated GFR) Units of measure: mL/min/1.73 meters squared eGFR is derived from the reexpressed MDRD Study equation using the following parameters: serum creatinine, age, gender and race. The creatinine assay has been calibrated to be traceable to IDMS. An eGFR <60 mL/min/1.73m2 for >3 months is consistent with chronic kidney disease. Refer to KDOQI guidelines for clinical interpretation. In patients with unstable renal function, e.g. those with acute kidney injury, the eGFR may not accurately reflect actual GFR. Performed By: #### PT, CBC, CMP #### [facility] [address] [id number] D DIMER Collected: 08/20/2017 Status: F Source: [place] 4:01 AM [facility] REPOSITORY TYPE CODE TESTS RESULT OUT OF REFERENCE UNITS RANGE LAB DDMER <500 ng/mL FEU High D dimer 670 Result Comment: The D-dimer assay can be used to exclude pulmonary embolism (PE) and deep vein thrombosis (DVT) in conjunction with a low pre-test probability. For patients with a suspected DVT, a D-dimer level below 500 ng/mL FEU has a negative predictive value of 99.2%, a sensitivity of 98.9%, and a specificity of 36.1%. For patients with a suspected PE, a D -dimer level below 500 ng/mL FEU has a negative predictive value of 99.1%, a sensitivity of 97.8%, and a specificity of 41.7%. Results may be inaccurate due to age of specimen. Performed By: #### DDMER #### [facility] [employer] [facility] [id number] TROPONIN T Collected: 08/20/2017 Status: F Source: [place] 4:00 AM [facility] REPOSITORY TYPE CODE TESTS RESULT OUT OF REFERENCE UNITS RANGE LAB TROPT 0.000-0.029 ng/mL Troponin T <0.010 Performed By: #### PRATIMA #### [address] [place] [address] NURSING PROG Observed: 08/19/2017 Status: COMPLETED Source: [place] 10:21 PM [facility] REPOSITORY HNO ID: [id number] Author: Annabelle (Rn) RMOÁN Montero Service: (none) Author Type: Registered Nurse Type: Nursing Progress Note Filed: 08/19/2017 10:22 PM Note Text: Nursing Progress Note Patient Name: Kalyn Cain Patient Location: [address] Transfer Note: Patient transferred into room/unit G100-36. Actions taken: Patient lying comfortably in bed. Oriented to room, shown hospital phone and call light. Bed in low position. Bed alarm on for first 24 hours. This note was completed by: Annabelle Montero RN HISTORY PHYSICAL Observed: 08/19/2017 Status: COMPLETED Source: [place] 10:18 PM [facility] REPOSITORY HNO ID: [id number] Author: Salvador Forrester Service: Hepatology Author Type: Physician Type: HANDP Filed: 08/20/2017 4:25 PM Note Text: HEPATOLOGY -GREEN TEAM History and Physical PATIENT NAME: Kalyn Cain SERVICE DATE: 08/19/2017 SERVICE TIME: 10:18 PM PRIMARY TEAM: Hepatology Weekdays 7 am to 5 pm/Weekend 7 am to 3 pm: Page [phone] (Guitar Instructor- Richard Morgan) then [phone] (Senior- Clement Chester) Weekdays 5 pm to 7 am/Weekend 3 pm to 7 am: Carriage Operator Pager [phone] PRIMARY CARE PHYSICIAN: Mary Ramirez DO Chief Complaint SOB, CT scan findings History of Presenting Illness Kalyn Cain is a 67 year old female with PMHx -Cirrhosis d/t chronic hepatitis C (Tx w/ Zepatier x12 weeks, eradicated per Dr. Pearson note), disease c/b portal HTN -EV (noted on EGD 05/12, very small, on Coreg) -Follows with hepatology, Dr. Pearson -CAD s/p CABG x4 (03/2004), h/o MN s/p defib placement, on ASA AND plavix -HF? No echo on EPID (on lasix 40mg BID) -DMT2 -CKD [id number] -Chronic macrocytic anemia Patient presented to ED on 08/19/17 d/t CT scan performed locally showing swelling around liver AND spleen. Her local doctor recommended she f/u at [facility] due to history of cirrhosis. Due to these findings and worsening SOB, pt contacted Dr. Pearson, who recommended she present to ED for further evaluation. In ED, pt HDS, afebrile, O2 sat 99% on RA. 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 EKG w/ no ST segment changes. Labs remarkable for NTpBNP 3472 (2708 on 08/01/17), troponin <0.10, SCr 1.78, LFTs wnl, Hgb 9.9 (stable), plts 80, no leukocytosis. CT A/P showed findings c/w cirrhosis and portal HTN, no acute process in abd/pelvis, no ascites. Patient admitted to the hepatology for further evaluation and mgmt of patient's hypervolemia. Of note, patient reports over the last 2-3 weeks she has had progressively worsening SOB, BENNETT, orthopnea, and BLE swelling. Symptoms have worsened to the point where she has been sleeping in the recliner at home. Denies supp O2 or inhaler use. No recent weight change. She describes acute chest pressure over last couple of days that starts near the sternum and wraps around the entire abdomen and lower chest radiating around the back. Denies palpitations, productive cough, n/v/fever. Occasional night sweats. MELD-Na score: 14 at 08/19/2017 3:11 PM MELD score: 14 at 08/19/2017 3:11 PM Calculated from: Serum Creatinine: 1.78 mg/dL at 08/19/2017 3:11 PM Serum Sodium: 139 mmol/L (Rounded to 137) at 08/19/2017 3:11 PM Total Bilirubin: 0.7 mg/dL (Rounded to 1) at 08/19/2017 3:11 PM INR(ratio): 1.2 at 08/19/2017 3:11 PM Age: 67 years Date of diagnosis: HCV ~2002, cirrhosis ~9568-9231 Biopsy proven: No OLT listed: No Last EGD:05/25/16 Single, column very small EV which flattened with minimal air sufflation, no banding. Irregular squamocolumnar junction. Mild erythema. Normal duodenum. No gastric varices Last colonoscopy: 2017 w/ local GI, 3 sessile polyps transverse colon, 1 sessile poly in descending colon, 1 sessile polyp in rectum, repeat in 2019 Other GI procedures/paracentesis: Last ECHO: None Home diuretics: Lasix Last EtOH use: None Last drug use: None Review of Systems GENERAL: +nightsweats. No fever, chills, weight loss/gain, or malaise HEENT: Negative for frequent/significant MONREAL, no visual/hearing changes, no nose bleeds NECK: Negative for lumps, pain, and significant neck swelling RESPIRATORY: +SOB, BENNETT, orthopnea. Negative for cough, hemoptysis, and wheezing CARDIOVASCULAR: +chest pressure, +leg swelling. Negative for CP, palpitations, and leg swelling GI: +abd pain. No nausea, vomiting : No dysuria, hematuria, increased frequency or incontinence, or hesitancy FINE WIRE DRAWER: Negative for abnormal vaginal bleeding or discharge MUSCULOSKELETAL: Negative for joint pain or swelling, back pain or muscle pain SKIN: Negative for lesions, rash, and itching PSYCH: Negative for sleep disturbance, mood disorder and recent psychosocial stressors HEMATOLOGY/LYMPHOLOGY: Negative for prolonged bleeding, bruising easily or swollen nodes ENDOCRINE: Negative for cold or heat intolerance, polyuria, and polydipsia NEURO: No MONREAL, lightheadedness, dizziness, syncope, or tremors Family/Medical/Surgical/Social Hx No family history on file. No past medical history on file. PAST SURGICAL HISTORY Procedure Laterality Date - HYSTERECTOMY HX Social History Marital status: Spouse name: Years of education: Number of children: Social History Main Topics Smoking status: Never Smoker Smokeless status: Never Used Alcohol use: No Drug use: No Sexual activity: No Comment: Medications/Allergies Prior to Admission Medications: Prescriptions Prior to Admission: CALCIUM CARBONATE/VITAMIN D3 (VITAMIN D-3 ORAL) Take by mouth. Disp: Rfl: INSULIN DEGLUDEC (TRESIBA FLEXTOUCH U-100 SUBCUTANEOUS) Inject 40 Units subcutaneously twice daily. Disp: Rfl: GLUCAGON EMERGENCY KIT, HUMAN, 1 mg injection Disp: Rfl: ACCU-CHEK DISHA PLUS TEST STRP test strip USE 4 TIMES DAILY Disp: Rfl: 2 NOVOLOG FLEXPEN U-100 INSULIN 100 unit/mL inpn USE DIRECTED NEEDED SLIDING SCALE Disp: Rfl: 3 TRESIBA FLEXTOUCH U-200 200 unit/mL (3 mL) injection INJECT 50 UNIT(S) TWICE A DAY BY SUBCUTANEOUS ROUTE FOR 30 DAYS. Disp: Rfl: 5 furosemide (LASIX) 40 mg tablet Take 1 tablet by mouth once daily. Disp: Rfl: 0 elbasvir-grazoprevir (ZEPATIER) 50-100 mg tab Take 1 tablet by mouth once daily Disp: 28 tablet Rfl: 2 Not Taking at Unknown time ramipril (ALTACE) 5 mg capsule Take 5 mg by mouth once daily. Disp: Rfl: promethazine (PHENERGAN) 25 mg tablet Take 25 mg by mouth every 6 hours as needed. Disp: Rfl: HYDROcodone-acetaminophen (NORCO) 5-325 mg per tablet Take 1 tablet by mouth every 6 hours as needed. Disp: Rfl: levothyroxine (SYNTHROID) 137 mcg tablet Take 137 mcg by mouth daily before breakfast. Disp: Rfl: clopidogrel (PLAVIX) 75 mg tablet Take 75 mg by mouth once daily. Disp: Rfl: atorvastatin (LIPITOR) 40 mg tablet Take 40 mg by mouth once daily. Disp: Rfl: insulin aspart (NOVOLOG) 100 units/ml Inject subcutaneously every 6 hours. Disp: Rfl: aspirin, enteric coated (ASPIRIN, ENTERIC COATED) 81 mg EC tablet Take 81 mg by mouth once daily. Disp: Rfl: carvedilol (COREG) 12.5 mg tablet Take 12.5 mg by mouth twice daily with meals. Disp: Rfl: ferrous sulfate (IRON) 325 mg (65 mg iron) tablet Take 325 mg by mouth daily with breakfast. Disp: Rfl: gabapentin (NEURONTIN) 300 mg capsule Take 300 mg by mouth twice daily. Disp: Rfl: spironolactone (ALDACTONE) 25 mg tablet Take 25 mg by mouth once daily. Disp: Rfl: pantoprazole DR (PROTONIX) 20 mg tablet Take 20 mg by mouth once daily. Disp: Rfl: Current Medications: CALCIUM CARBONATE/VITAMIN D3 (VITAMIN D-3 ORAL) Take by mouth. INSULIN DEGLUDEC (TRESIBA FLEXTOUCH U-100 SUBCUTANEOUS) Inject 40 Units subcutaneously twice daily. GLUCAGON EMERGENCY KIT, HUMAN, 1 mg injection ACCU-CHEK DISHA PLUS TEST STRP test strip USE 4 TIMES DAILY NOVOLOG FLEXPEN U-100 INSULIN 100 unit/mL inpn USE DIRECTED NEEDED SLIDING SCALE TRESIBA FLEXTOUCH U-200 200 unit/mL (3 mL) injection INJECT 50 UNIT(S) TWICE A DAY BY SUBCUTANEOUS ROUTE FOR 30 DAYS. furosemide (LASIX) 40 mg tablet Take 1 tablet by mouth once daily. elbasvir-grazoprevir (ZEPATIER) 50-100 mg tab Take 1 tablet by mouth once daily ramipril (ALTACE) 5 mg capsule Take 5 mg by mouth once daily. promethazine (PHENERGAN) 25 mg tablet Take 25 mg by mouth every 6 hours as needed. HYDROcodone-acetaminophen (NORCO) 5-325 mg per tablet Take 1 tablet by mouth every 6 hours as needed. levothyroxine (SYNTHROID) 137 mcg tablet Take 137 mcg by mouth daily before breakfast. clopidogrel (PLAVIX) 75 mg tablet Take 75 mg by mouth once daily. atorvastatin (LIPITOR) 40 mg tablet Take 40 mg by mouth once daily. insulin aspart (NOVOLOG) 100 units/ml Inject subcutaneously every 6 hours. aspirin, enteric coated (ASPIRIN, ENTERIC COATED) 81 mg EC tablet Take 81 mg by mouth once daily. carvedilol (COREG) 12.5 mg tablet Take 12.5 mg by mouth twice daily with meals. ferrous sulfate (IRON) 325 mg (65 mg iron) tablet Take 325 mg by mouth daily with breakfast. gabapentin (NEURONTIN) 300 mg capsule Take 300 mg by mouth twice daily. spironolactone (ALDACTONE) 25 mg tablet Take 25 mg by mouth once daily. pantoprazole DR (PROTONIX) 20 mg tablet Take 20 mg by mouth once daily. Nexium [Esomeprazole Magnesium] Physical Exam 08/19/[id number]/19/[id number] BP: 139/62 133/60 136/56 Pulse: 70 70 70 Resp: 16 18 18 Temp: 36.8 ?C (98.2 ?F) 36.9 ?C (98.5 ?F) 36.8 ?C (98.2 ?F) TempSrc: Oral Oral Oral SpO2: 97% 98% 99% Weight: 107.8 kg (237 lb 9.6 oz) Height: Temp Av.7 ?C (98.1 ?F) Min: 36.5 ?C (97.7 ?F) Max: 36.9 ?C (98.5 ?F) Pulse Av.5 Min: 67 Max: 71 No Data Recorded Cuff BP Min: 133/60 Max: 139/62 Body mass index is 40.78 kg/(m2). BP 136/56 Pulse 70 Temp 36.8 ?C (98.2 ?F) (Oral) Resp 18 Ht 162.6 cm (5' 4) Wt 107.8 kg (237 lb 9.6 oz) SpO2 99% BMI 40.78 kg/m2 General: No acute distress, AANDOx3. Skin: Intact, no lesions. Head: Normocephalic, atraumatic. Eyes: Anicteric sclera. PERRLA. EOMI. Oral: Lips, mucosa, tongue and gums normal. Neck: Supple. No JVD. Cardiovascular: RRR, no murmurs or gallops auscultated Respiratory: CTA b/l. No wheezing, rhonchi, or crackles. No respiratory distress. Abdomen: Soft, mild distension, non-tender. Bowel sounds normal. No organomegaly or masses. Genitourinary: No CVA tenderness. Back: No pain to palpation over spine. Extremities: Non-pitting peripheral edema b/l. No clubbing, cyanosis. Peripheral pulses + cap refill x 4. Musculoskeletal: No joint swelling, deformity, or tenderness. Neuro: Motor and sensory function grossly intact x 4 Psych: Normal affect, conversant. Intake/Output None Data Chest XR 08/19/17: IMPRESSION: Mild interstitial edema. RESULT: Lines, tubes, and devices: ?There is a left-sided ICD with leads terminating in the right atrium, right ventricle and coronary sinus. Lungs and pleura: ?Mild pulmonary vascular redistribution. ?No consolidation. No lung mass. No pleural effusion. Cardiomediastinal silhouette: Status post median sternotomy. ?Enlarged cardiomediastinal silhouette. Other: ?No acute osseous abnormality. CT A/P 08/19/17: IMPRESSION: NO ACUTE PROCESS IN THE ABDOMEN OR PELVIS. CHANGES OF CIRRHOSIS AND PORTAL HYPERTENSION. RESULT: Abdomen / Pelvis: Liver: Cirrhotic morphology. Biliary: S/p cholecystectomy. Spleen: Spleen measures approximately 14 cm in craniocaudal dimension. Pancreas: Atrophic. ?No obvious lesions or ductal dilatation Adrenals: No mass. Kidneys: No calculus, hydronephrosis or finding to suggest a mass in the unenhanced kidney. ?2.3 cm left superior pole cyst (2:45). Atrophic kidneys. GI Tract: No bowel dilation. Lymph Nodes: No lymphadenopathy. Mesentery/peritoneum: No ascites. Retroperitoneum: No mass. Vasculature: Arterial atherosclerotic disease without aneurysm. ?Multiple perigastric collaterals near the midline of the upper abdomen, sequela of portal hypertension. Pelvis: No mass or ascites. ?Status post hysterectomy. ?The bladder is unremarkable. ?There is a 0.7 cm calcification in the left ovary (2:106). Bones/Soft Tissues: Degenerative changes. ?There is a tiny fat-containing umbilical hernia. ?Nonspecific subcutaneous edema in the anterior abdominal wall in the pelvis. Lower thorax: Small right pleural effusion. ?There is mild right basilar atelectasis. Labs CBC: Recent Labs 08/19/17 1511 WBC 6.00 HB 9.9* PLT 80* MCV 102.3* RDWCV 13.8 NEUTP 71.7 ABSNEUT 4.28 LYMPHP 16.3 MONOP 5.2 EODINP 6.0 COAG: Recent Labs 08/19/17 1511 INR 1.2 BMP: Recent Labs 08/19/17 1511 GLUC 94 NA 139 K 4.2 CHLOR 100 CO2 27 ANION 12 BUN 35* CREAT 1.78* CHEM: Recent Labs 08/19/17 1511 ALB 3.9 TPROT 8.2* CA 9.5 HEPATIC: Recent Labs 08/19/17 1511 ALKPHOS 89 ALT 9 AST 16 TBILI 0.7 CARDIAC: Recent Labs 08/19/17 1511 TROPT <0.010 PBNP 3472* URINALYSIS:No results for input(s): PH, SPGR, UGLUC, UBILI, UKET, UHB, UPROT, UROBIL, UWBC, SSA in the last 168 hours. Invalid input(s): NITR Assessment and Plan Mrs. Kalyn Cain is a 67 yo female w/ PMHx Cirrhosis d/t chronic hepatitis C, disease c/b portal HTN and EV, CAD s/p CABG x4 (03/2004), h/o MN s/p defib placement (on ASA AND plavix), HF? No echo on EPID (on lasix 40mg BID), DMT2, CKD [id number], macrocytic anemia who presents with #Volume overload CXR w/ mild interstitial edema in ED HDS, O2 sat 99% RA, non-pitting pedal edema NTpBNP 3472, up from 2700 on 08/01 EKG: BiV paced, no ST segment abnormalities Etiology: mild CHF exacerbation? vs. volume overload 2/2 cirrhosis? (unlikely w/ normal LFTs, albumin) Plan: -Consider continuing diuresis IV lasix 40mg QD, titrate based on volume status -Strict I/Os -TTE -Daily weights -Monitor SpO2 #Chest Pressure Mid-sternum, wrapping around to back NTpBNP 3472, up from 2700 on 08/01 EKG: BiV paced, no ST segment abnormalities CXR w/ mild interstitial edema in ED Etiology: interstitial edema vs. increased pressure from abdominal distension, unlikely ACS w/ unchanged EKG, negative troponin Plan: -Trend troponin x2 -Monitor for worsening sxs #HCV Cirrhosis HCV treated w/ Zepatier x12 weeks, eradicated per Dr. Pearson note Disease c/b portal HTN CT A/P (08/19): cirrhotic morphology Chronic Medical conditions #HTN - continue ramipril #DMT2 -On tresiba 60units in AM w/ Novolog SSI Plan: Lantus 48U in AM w/ SSI #Hypothyroidism -Continue levothyroxine, check TSH #CAD s/p CABG x4 (03/2004), h/o MN - continue ASA, plavix #CKD Stage 4 Component 11/09/2016 01/08/2017 08/19/2017 Creatinine 2.07 (H) 2.28 (H) 1.78 (H) eGFR-All Other Races 24 Plan: -Strict I/O -Avoid nephrotoxic agents MAINTENANCE: # Diet - Electrolyte AND carb controlled # VTE PPx - SubQ Heparin 5000U q12h # Dispo Planning - Pending SIGNATURE: Richard Morgan DO Internal Medicine Resident PGY-1 PATIENT NAME: Kalyn Cain DATE: August 19, 2017 TIME: 10:18 PM PAGER: [phone] Note: These recommendations are not final until staffed by provider SENIOR MACHINE PRECISION ETCHER ADDENDUM I have reviewed the excellent history and physical examination obtained and documented by Dr. Morgan., and I personally participated in the grady components. I have discussed the case and management of the patient's care. The following comments revise or confirm relevant grady components of the note. ? SUBJECTIVE Briefly, Kalyn Cain is a 67 year old female with HCC cirrhosis c/b EV, pHTN, MN s/p ICD, CAD s/p CABG x 4 on DAPT, CHF (on Lasix 40 mg BID), DMT2, CKD 3b (baseline 1.7-2.1) w a hx of temporary IHD sent in by Dr. Pearson for evaluation of shortness of breath. ? In the ED noted to be HDS, HR 71, 98-100% on room air. Scr noted to be 1.78 (baseline) Pratima negative, BNP 3472 (no previous baseline) INR 1.2, TB 0.7, normal LFTs/AlkP CXR with mild interstitial edema CT A/P with no concerning pathology ? Remainder of history as noted above. ? OBJECTIVE PHYSICAL EXAM: Vitals ? 08/19/17 1435 08/19/17 1650 BP: 135/68 139/60 Pulse: 71 67 Resp: 18 16 Temp: 36.5 ?C (97.7 ?F) ? TempSrc: Oral ? SpO2: 100% 99% Weight: 109.3 kg (241 lb) ? Height: 162.6 cm (5' 4) ? ? General: Pt is laying in bed in no acute distress, speaking in full coherent sentences, nondiaphoretic, cooperative HEENT: anicteric sclera, PERRL with accommodation intact, EOMI, oropharynx clear, moist mucous membranes, no lymphadenopathy appreciated Cardiac: Regular Rhythm, S1 and S2 without appreciation of murmurs, no rubs/gallops/clicks, no JVD Lungs: clear to auscultation bilaterally with good respiratory effort Abdomen: soft, non-tender, non-distended, active bowel sounds, no masses or hepatospelnomegaly appreciated, no abdominal bruits Extremities: warm, no edema, Radial pulses 2+ bilaterally, and capillary refill < 2 seconds Neurologic: AANDOx3, Motor/sensation grossly intact x 4 extremities ? ASSESSMENT AND PLAN Kalyn Cain is a 67F with HCC cirrhosis c/b EV, pHTN, MN s/p ICD, CAD s/p CABG x 4 on DAPT, CHF (on Lasix 40 mg BID), DMT2, CKD 3b (baseline 1.7-2.1) w a hx of temporary IHD sent in by Dr. Pearson for evaluation of shortness of breath. In ED CXR mild edema, CT A/P with cirrhosis but no other pathology, on room air, normal BP, not tachycardic, no leukocytosis, creatinine at baseline, all LFTs normal. Given Oxycodone in the ED but no diuretics or other medications. ?? # Shortness of breath + orthopnea. Potentially from volume overload secondary to HF (on home diuretics), unclear if HFpEF or rEF. CXR without consolidation, mild interstitial edema, no oxygen requirement, no SIRS criteria. No JVD. CT AP without pathology aside from cirrhosis and no ascites. Low Well's score but some increased lethargy and decreased activity. - IV lasix 80 mg x 1, follow UOP and Scr then continue to diurese - Follow up BMP in the morning - Trend Pratima. Check D-dimer - If she continues to be stable with some improvement in breathing will discharge in the morning - TTE - Can get outpt PFTs DVT PPx: SCDs for now, on DAPT and plts 80K Dispo: TBD, should not have skilled needs Diet: Na restricted Code: Full ? Remainder of plan as noted above. ? Signature: Harley Monreal PGY-3 IM pager: [phone] August 20, 2017 6:37 AM I have seen and evaluated the patient and discussed the case with the resident physician. I agree with the assessment and plan as documented in the resident?s note. She needs cardiopulmonary evaluation, especially (bubble) ECHO. Careful titration of diuretics in the face of renal impairment. Dr White takes over service at 5PM. Salvador Forrester MD [facility] [place] Observed: 08/19/2017 Status: COMPLETED Source: [place] 9:33 PM [facility] REPOSITORY HNO ID: [id number] Author: Nayana Camp RN Service: Emergency Medicine Author Type: Registered Nurse Type: ED Notes Filed: 08/19/2017 9:33 PM Note Text: Report called to Annabelle FRANCE. ED NOTE Observed: 08/19/2017 Status: COMPLETED Source: [place] 8:49 PM [facility] REPOSITORY HNO ID: [id number] Author: Vianney McduffieRn) ROMÁN Nielson Service: (none) Author Type: Registered Nurse Type: ED Notes Filed: 08/19/2017 8:50 PM Note Text: Pt to and from RR via wheelchair; NAD, ABC's intact. ED NOTE Observed: 08/19/2017 Status: COMPLETED Source: [place] 6:23 PM [facility] REPOSITORY HNO ID: [id number] Author: Nayana Whittaker) ROMÁN Camp Service: Emergency Medicine Author Type: Registered Nurse Type: ED Notes Filed: 08/19/2017 6:23 PM Note Text: Pt's states she started to feel dizzy, patients BS 45. Pt given fruit juices and snacks. Will continue to monitor. CT ABD/PEL WO IVCON Observed: 08/19/2017 Status: F Source: [place] 5:47 PM [facility] REPOSITORY * * *Final Report* * * DATE OF EXAM: Aug 19 2017 5:47PM [facility] 0531 - CT ABD/PEL WO IVCON / PROCEDURE REASON: Right upper quadrant abdominal pain * * * * Physician Interpretation * * * * EXAMINATION: CT ABDOMEN AND PELVIS WITHOUT IV CONTRAST CLINICAL HISTORY: History of hepatitis C cirrhosis, esophageal varices, portal hypertension, presents with shortness of breath for over 1 month, right upper quadrant abdominal discomfort x 5 months, abdominal distention and increased swelling in bilateral lower extremities x 2 weeks. TECHNIQUE: Non-IV contrast imaging of the abdomen and pelvis was performed using standard technique, scanning from just above the dome of the diaphragm to the symphysis pubis. Unenhanced imaging is limited for the evaluation of some intra-abdominal and pelvic pathology. MQ: CTAPWO_3 Contrast: IV: None Oral: 900 ml of 50ML Omnipaque [address] Radiation dose: Integrated Dose-length product (DLP) for this visit = 1297 mGy*cm. CT Dose Reduction Employed: Automated exposure control (AEC) COMPARISON: None. RESULT: Abdomen / Pelvis: Liver: Cirrhotic morphology. Biliary: S/p cholecystectomy. Spleen: Spleen measures approximately 14 cm in craniocaudal dimension. Pancreas: Atrophic. No obvious lesions or ductal dilatation Adrenals: No mass. Kidneys: No calculus, hydronephrosis or finding to suggest a mass in the unenhanced kidney. 2.3 cm left superior pole cyst (2:45). Atrophic kidneys. GI Tract: No bowel dilation. Lymph Nodes: No lymphadenopathy. Mesentery/peritoneum: No ascites. Retroperitoneum: No mass. Vasculature: Arterial atherosclerotic disease without aneurysm. Multiple perigastric collaterals near the midline of the upper abdomen, sequela of portal hypertension. Pelvis: No mass or ascites. Status post hysterectomy. The bladder is unremarkable. There is a 0.7 cm calcification in the left ovary (2:106). Bones/Soft Tissues: Degenerative changes. There is a tiny fat-containing umbilical hernia. Nonspecific subcutaneous edema in the anterior abdominal wall in the pelvis. Lower thorax: Small right pleural effusion. There is mild right basilar atelectasis. IMPRESSION: NO ACUTE PROCESS IN THE ABDOMEN OR PELVIS. CHANGES OF CIRRHOSIS AND PORTAL HYPERTENSION. Sample Coordinator: PSCB Transcribe Date/Time: Aug 19 2017 5:59P Dictated by : OTTONIEL CRENSHAW MD This examination was interpreted and the report reviewed and electronically signed by: ISABELL IVERSON JR, MD on Aug 19 2017 6:30PM EST [id number] ED NOTE Observed: 08/19/2017 Status: COMPLETED Source: [place] 5:36 PM [facility] REPOSITORY HNO ID: [id number] Author: Nayana McduffieRn) ROMÁN Camp Service: Emergency Medicine Author Type: Registered Nurse Type: ED Notes Filed: 08/19/2017 5:36 PM Note Text: Pt to CT scan via bed, in stable condition. Will continue to monitor. CONFIRM BLOOD TYPE Collected: 08/19/2017 Status: F Source: [place] 5:30 PM [facility] REPOSITORY TYPE CODE TESTS RESULT OUT OF REFERENCE UNITS RANGE LAB %ABR O ABO/RH(D) POSITIVE Performed By: #### CONABO #### [facility] [address], [place] [address] ED NOTE Observed: 08/19/2017 Status: COMPLETED Source: [place] 5:25 PM [facility] REPOSITORY HNO ID: [id number] Author: Nayana McduffieRn) ROMÁN Camp Service: Emergency Medicine Author Type: Registered Nurse Type: ED Notes Filed: 08/19/2017 5:25 PM Note Text: Will need CON ABO if giving blood products. PROGRESS Observed: 08/19/2017 Status: COMPLETED Source: [place] 4:41 PM [facility] REPOSITORY HNO ID: [id number] Author: Bharat Rodríguez (Rt) Service: (none) Author Type: Garment Turner Type: Progress Notes Filed: 08/19/2017 5:42 PM Note Text: Radiology Service Progress Note PATIENT NAME: Kalyn Cain DATE OF SERVICE: August 19, 2017 TIME: 4:41 PM PATIENT IDENTITY VERIFICATION COMPLETED USING TWO (2) METHODS: Patient confirmed name verbally and ID band matches.. PATIENT GENDER DATA: Female. status: : No status: NO. PATIENT RELEVANT IMPLANT DATA REVIEWED: Yes RADIOLOGY DEPARTMENT: CT; Exam(s) Completed: Abdomen/Pelvis PERIPHERAL IV DATA: Not applicable SIGNED BY: RT Michael August 19, 2017 4:41 PM PROGRESS Observed: 08/19/2017 Status: COMPLETED Source: [place] 3:40 PM [facility] REPOSITORY HNO ID: [id number] Author: Mary McduffieRtSulma Mishra Service: Radiology Author Type: Garment Turner Type: Progress Notes Filed: 08/19/2017 3:40 PM Note Text: Radiology Service Progress Note PATIENT NAME: Kalyn Cain DATE OF SERVICE: August 19, 2017 TIME: 3:40 PM PATIENT IDENTITY VERIFICATION COMPLETED USING TWO (2) METHODS: Patient confirmed name verbally and ID band matches.. PATIENT GENDER DATA: Female. status: : No status: N/A PATIENT RELEVANT IMPLANT DATA REVIEWED: Not Applicable RADIOLOGY DEPARTMENT: General X-ray: Exam(s) Completed: Chest X-Ray PERIPHERAL IV DATA: Not applicable SIGNED BY: RT Napoleon August 19, 2017 3:40 PM XR CHEST 2V FRONTAL/LAT Observed: 08/19/2017 Status: F Source: [place] 3:36 PM [facility] REPOSITORY * * *Final Report* * * DATE OF EXAM: Aug 19 2017 3:36PM EGX [id number] - XR CHEST 2V FRONTAL/LAT / PROCEDURE REASON: Shortness of breath * * * * Physician Interpretation * * * * EXAMINATION: CHEST RADIOGRAPH (2 VIEW FRONTAL and LATERAL) Clinical History: Shortness of breath MQ: XC2_5 Comparison: None. RESULT: Lines, tubes, and devices: There is a left-sided ICD with leads terminating in the right atrium, right ventricle and coronary sinus. Lungs and pleura: Mild pulmonary vascular redistribution. No consolidation. No lung mass. No pleural effusion. Cardiomediastinal silhouette: Status post median sternotomy. Enlarged cardiomediastinal silhouette. Other: No acute osseous abnormality. IMPRESSION: Mild interstitial edema. Sample Coordinator: PSCB Transcribe Date/Time: Aug 19 2017 3:39P Dictated by : OTTONIEL CRENSHAW MD This examination was interpreted and the report reviewed and electronically signed by: MARLY RANGEL MD on Aug 19 2017 3:41PM EST [id number] CBC AND DIFFERENTIAL Collected: 08/19/2017 Status: F Source: [place] 3:11 PM [facility] REPOSITORY TYPE CODE TESTS RESULT OUT OF REFERENCE UNITS RANGE LAB WBC 3.70-11.00 k/uL WBC 6.00 LAB RBC 3.90-5.20 m/uL Low RBC 3.01 LAB HGB 11.5-15.5 g/dL Low Hemoglobin 9.9 LAB HCT 36.0-46.0 % Low Hematocrit 30.8 LAB MCV 80.0-100.0 fL MCV High 102.3 LAB MCH 26.0-34.0 pG MCH 32.9 LAB MCHC 30.5-36.0 g/dL MCHC 32.1 LAB RDWCV 11.5-15.0 % RDW-CV 13.8 LAB PLTCT 150-400 k/uL Low Platelet Count 80 Result Comment: No clot detected. LAB MPV 9.0-12.7 fL MPV 11.6 LAB ANEUT % Neut% 71.7 LAB AANEUT 1.45-7.50 k/uL Abs Neut 4.28 LAB ALYMP % Lymph% 16.3 LAB AALYMP 1.00-4.00 k/uL Abs Low Lymph 0.98 LAB AMONO % Mobile% 5.2 LAB AAMONO <0.87 k/uL Abs Mobile 0.31 LAB AEOS % Eosin% 6.0 LAB AAEOS <0.46 k/uL Abs Eosin 0.36 LAB ABASO % Baso% 0.8 LAB AABASO <0.11 k/uL Abs Baso 0.05 LAB AUNRBC 0 /100 WBC NRBCs 0.0 LAB ABNRBC <0.01 k/uL Absolute nRBC <0.01 LAB DTYP DTYPE Auto Diff Performed By: #### CBCDIF, PT, BMP, HFP #### [facility] [address] [place], [place] [address] PROTIME Collected: 08/19/2017 Status: F Source: [place] 3:11 PM [facility] REPOSITORY TYPE CODE TESTS RESULT OUT OF RANGE REFERENCE UNITS LAB PSEC 9.7-13.0 sec PT Sec 12.2 LAB INR 0.9-1.3 PT INR 1.2 Result Comment: Vitamin K Antagonist (VKA) Therapeutic Range: INR 2 to 3 (Target INR of 2.5) Note: For patients treated with VKA drugs, such as warfarin, the [place] [employer] 2012 Guideline recommends a therapeutic INR range of 2 to 3 (target INR of 2.5). This recommendation includes high-risk patients with antiphospholipid syndrome with previous arterial or venous thromboembolism, current-generation mechanical or bioprosthetic aortic heart valve replacement. Note: Patients with mechanical aortic valve replacement and additional risk factors for thromboembolic events (atrial fibrillation, previous thromboembolism, LV dysfunction, hypercoagulable conditions) or an older generation mechanical AVR (i.e., ball in-Cage) or any mechanical MVR should have a INR therapeutic range of 2.5 to 3.5 (target INR of 3). Lana GH, et al. Chest 2012, 141:7S-47S Joce RA, et al. [facility] 2017, 70: 252-289 Performed By: #### CBCDIF, PT, BMP, HFP #### [facility] [address] [place] [address] BASIC METABOLIC PANL Collected: 08/19/2017 Status: F Source: [place] 3:11 PM [facility] REPOSITORY TYPE CODE TESTS RESULT OUT OF REFERENCE UNITS RANGE LAB GLU 74-99 mg/dL Glucose 94 Result Comment: The [place] Diabetes Association (ADA) provides guidance for cutoff values for fasting glucose and random glucose. The ADA defines fasting as no caloric intake for at least 8 hours. Fas ting plasma glucose results between 100 to 125 mg/dL indicate increased risk for diabetes (prediabetes). Fasting plasma glucose results greater than or equal to 126 mg/dL meet the criteria for diagnosis of diabetes. In the absence of unequivocal hyperglycemia, results should be confirmed by repeat testing. In a patient with classic symptoms of hyperglycemia or hyperglycemic crisis, random plasma glucose results greater than or equal to 200 mg/dL meet the criteria for diagnosis of diabetes. Reference: Standards of Medical Care in Diabetes 2016, [place] Diabetes Association. Diabetes Care. 2016.39(Suppl 1). LAB BUN 7-21 mg/dL BUN High 35 LAB CRET 0.58-0.96 mg/dL Creatinine High 1.78 LAB NA 136-144 mmol/L Sodium 139 LAB K 3.7-5.1 mmol/L Potassium 4.2 LAB CL 97-105 mmol/L Chloride 100 LAB CO2 22-30 mmol/L CO2 27 LAB AGAP 9-18 mmol/L Anion Gap 12 LAB CA 8.5-10.2 mg/dL Calcium, Total 9.5 LAB GFRAA eGFR- Amer. 34 LAB GFRNAA . eGFR-All Other Races 28 Result Comment: eGFR (Estimated GFR) Units of measure: mL/min/1.73 meters squared eGFR is derived from the reexpressed MDRD Study equation using the following parameters: serum creatinine, age, gender and race. The creatinine assay has been calibrated to be traceable to IDMS. An eGFR <60 mL/min/1.73m2 for >3 months is consistent with chronic kidney disease. Refer to KDOQI guidelines for clinical interpretation. In patients with unstable renal function, e.g. those with acute kidney injury, the eGFR may not accurately reflect actual GFR. Performed By: #### CBCDIF, PT, BMP, HFP #### [facility] [employer] [address] [place], [place] [address] HEPATIC FUNCTN PANEL Collected: 08/19/2017 Status: F Source: [place] 3:11 PM [facility] REPOSITORY TYPE CODE TESTS RESULT OUT OF REFERENCE UNITS RANGE LAB ALB 3.9-4.9 g/dL Albumin 3.9 LAB TBIL 0.2-1.3 mg/dL Bilirubin, Total 0.7 LAB CBIL <0.2 mg/dL Bilirubin,Conjuga <0.2 bhargav LAB ALKP 32-117 U/L Alkaline Phosphatase 89 LAB AST 13-35 U/L AST 16 LAB ALT 7-38 U/L ALT 9 LAB TP 6.3-8.0 g/dL Protein, High Total 8.2 Performed By: #### CBCDIF, PT, BMP, HFP #### [facility] [employer] [address] [place], [place] [address] NT PRO BNP Collected: 08/19/2017 Status: F Source: [place] 3:11 PM [facility] REPOSITORY TYPE CODE TESTS RESULT OUT OF REFERENCE UNITS RANGE LAB PBNP <125 pg/mL High PRO B Natr 3472 Peptide Performed By: #### NTBNP, PRATIMA #### [facility] [address] [id number] TROPONIN T Collected: 08/19/2017 Status: F Source: [place] 3:11 PM [facility] REPOSITORY TYPE CODE TESTS RESULT OUT OF REFERENCE UNITS RANGE LAB TROPT 0.000-0.029 ng/mL Troponin T <0.010 Performed By: #### NTBNP, PRATIMA #### [facility] [address] [place], [place] [address] TYPE AND SCREEN Collected: 08/19/2017 Status: F Source: [place] 3:11 PM [facility] REPOSITORY TYPE CODE TESTS RESULT OUT OF REFERENCE UNITS RANGE LAB %ABR O ABO/RH(D) POSITIVE LAB % Antibody Screen POS LAB %BAO Antibody Identified Result Comment: ANTIBODY REACTIVITY, No Apparent Specificity. ANTI-Cw PRESENT. 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 Current findings are consistent with history but also reveal the presence of alloantibodies to the Cw (Rh system) antigen. Cw is a low frequency antigen so will not affect blood availability to a great degree, however, it will impose a need for additional unit testing and type confirmation. RBC for transfusion must be chosen to be E, Fya and Cw negative, as well as compatible on an antiglobulin crossmatch. Approximately 25% of donor units will be of the necessary antigen type. Due to the reactivity of no currently apparent specificity some units of the correct phenotype may be crossmatch incompatible. Please allow at least 12 to 18 hours for obtaining and crossmatching suitable RBC. LAB BBPATH Physician Signed by Review Colleen Garrison MD ([id number]) Performed By: #### ABINTB #### [facility] [address] [place], [place] [address] ED NOTE Observed: 08/19/2017 Status: COMPLETED Source: [place] 3:06 PM [facility] [facility] REPOSITORY HNO ID: [id number] Author: Nayana McduffieRn) ROMÁN Camp Service: Emergency Medicine Author Type: Registered Nurse Type: ED Notes Filed: 08/19/2017 3:06 PM Note Text: Medic at bedside gaining IV access. Will follow up. ED PROV NOTE Observed: 08/19/2017 Status: COMPLETED Source: [place] 2:55 PM [facility] REPOSITORY HNO ID: [id number] Author: Alexei Schaffer MD Service: Emergency Medicine Author Type: Physician Type: ED Provider Notes Filed: 08/21/2017 4:43 PM Note Text: ED Provider Note Patient Name: Kalyn Cain SERVICE DATE: 08/19/17 History Patient presents with: Shortness of Breath HPI Comments: A 67-year-old female with past medical history of liver cirrhosis due to chronic hepatitis C, esophageal varices, portal hypertension, MN s/p defibrillator placement, CAD s/p CABG x 4 (03/2004) on ASA and Plavix, CHF (on Lasix 40 mg BID), DMT2, low GFR with hx of hemodialysis from [facility] in past, and metabolic syndrome presents to the Emergency Department with complaints of shortness of breath for over 1 month, increasing over the past 3 weeks. Endorses right upper quadrant abdominal discomfort x 5 months, abdominal distention and increased swelling in bilateral lower extremities x [address] García in Hepatology sent pt to ED for evaluation of increasing shortness of breath. Reports taking Lasix 80 mg PO this morning. Denies hx of DVT/PE, fevers, chills, chest pain, heart palpitations, cough, hemoptysis, nausea, vomiting, diarrhea, melena, hematochezia, difficulty urinating, dysuria, gross hematuria. History provided by: Patient sales agent business services used: No PMH: Hep C, portal HTN, CABG, liver cirrhosis PAST SURGICAL HISTORY Procedure Laterality Date - HYSTERECTOMY HX No family history on file. Social History Social History Main Topics - Smoking status: Never Smoker - Smokeless tobacco: Never Used - Alcohol use No - Drug use: No - Sexual activity: No Comment: ALLERGIES Allergen Reactions - Nexium [Esomeprazol* Itching Review of Systems Constitutional: Negative for chills and fever. HENT: Negative for sore throat and trouble swallowing. Eyes: Negative for visual disturbance. Respiratory: Positive for shortness of breath. Negative for cough and wheezing. Cardiovascular: Positive for leg swelling (bilateral, increasing over past 2 weeks). Negative for chest pain and palpitations. Gastrointestinal: Positive for abdominal distention and abdominal pain (RUQ ). Negative for diarrhea, nausea and vomiting. Genitourinary: Negative for difficulty urinating, dysuria and hematuria. Musculoskeletal: Negative for arthralgias. Skin: Negative for rash. Neurological: Negative for dizziness, weakness and light-headedness. Physical Exam BP 133/60 Pulse 70 Temp (Src) 98.5 (Oral) Resp 18 Ht 5' 4 (1.63m) Wt 237 lb 9.6 oz (107.8kg) SpO2 98% BMI 40.76 kg/(m2). Physical Exam Constitutional: She is oriented to person, place, and time. She appears well-developed and well-nourished. No distress. Well-appearing elderly female sitting upright in no acute cardiac or respiratory distress. HENT: Head: Normocephalic and atraumatic. Nonicteric sclera. Eyes: Conjunctivae and EOM are normal. Pupils are equal, round, and reactive to light. Neck: Neck supple. Cardiovascular: Normal rate, regular rhythm, normal heart sounds and intact distal pulses. No murmur heard. Pulses: Radial pulses are 1+ on the right side, and 1+ on the left side. Dorsalis pedis pulses are 1+ on the right side, and 1+ on the left side. RRR. Normal S1/S2. Pulmonary/Chest: Shallow respirations, even and unlabored. Resp Rate 18. O2 saturation 100% on RA. Lung sounds clear to auscultation bilaterally. No wheezing, rhonchi, or rales. Abdominal: Bowel sounds are normal. Bowel sounds normoactive x 4. Abdomen appears distended with tenderness and guarding in right upper quadrant, epigastric region and right lower quadrant. Mild bruising present and lower abdomen at site of insulin injections. Musculoskeletal: Bilateral 2+, nonpitting edema, L > R. No calf tenderness or palpable cords. Neurological: She is alert and oriented to person, place, and time. Skin: Skin is warm and dry. She is not diaphoretic. Skin does not appear jaundiced. Psychiatric: She has a normal mood and affect. Her behavior is normal. Nursing note and vitals reviewed. Diagnostic Testing ED Labs Ordered and Reviewed CBC + DIFF - Abnormal; Notable for the following: Result Value Ref Range RBC 3.01 (*) 3.90 - 5.20 m/uL Hemoglobin 9.9 (*) 11.5 - 15.5 g/dL Hematocrit 30.8 (*) 36.0 - 46.0 % MCV 102.3 (*) 80.0 - 100.0 fL Platelet Count 80 (*) 150 - 400 k/uL Abs Lymph 0.98 (*) 1.00 - 4.00 k/uL All other components within normal limits BASIC METABOLIC PNL - Abnormal; Notable for the following: BUN 35 (*) 7 - 21 mg/dL Creatinine 1.78 (*) 0.58 - 0.96 mg/dL All other components within normal limits HEPATIC FUNCTION PNL - Abnormal; Notable for the following: Protein, Total 8.2 (*) 6.3 - 8.0 g/dL All other components within normal limits NT PRO BNP - Abnormal; Notable for the following: NT Pro BNP 3472 (*) <125 pg/mL All other components within normal limits GLUCOSE, BLOOD (POC) - Abnormal; Notable for the following: Glucose, Point of Care 45 (*) 74 - 99 mg/dL All other components within normal limits Narrative: Meter ID:[id number] GLUCOSE, BLOOD (POC) - Abnormal; Notable for the following: Glucose, Point of Care 126 (*) 74 - 99 mg/dL All other components within normal limits Narrative: Meter ID:[id number] PROTHROMBIN TIME/PT TROPONIN T GLUCOSE - ED(POC) GLUCOSE, BLOOD (POC) Narrative: Meter ID:[id number] TYPE + SCREEN CONFIRM BLOOD TYPE Procedures Medical Decision Making / ED Course ED Course BP 133/60 Pulse 70 Temp 36.9 ?C (98.5 ?F) (Oral) Resp 18 Ht 162.6 cm (5' 4) Wt 107.8 kg (237 lb 9.6 oz) SpO2 98% BMI 40.78 kg/m2 CT ABD/PEL WO IVCON Final Result IMPRESSION: NO ACUTE PROCESS IN THE ABDOMEN OR PELVIS. CHANGES OF CIRRHOSIS AND PORTAL HYPERTENSION. Sample Coordinator: GISELLE Transcribe Date/Time: Aug 19 2017 5:59P Dictated by : OTTONIEL CRENSHAW MD This examination was interpreted and the report reviewed and electronically signed by: ISABELL IVERSON JR, MD on Aug 19 2017 6:30PM EST XR CHEST 2V FRONTAL/LAT Final Result IMPRESSION: Mild interstitial edema. Sample Coordinator: PSC Transcribe Date/Time: Aug 19 2017 3:39P Dictated by : OTTONIEL CRENSHAW MD This examination was interpreted and the report reviewed and electronically signed by: MARLY RANGEL MD on Aug 19 2017 3:41PM EST A 67 y/o female presents to the ED with c/o increasing shortness of breath x 3 weeks, increased abdominal distention and lower extremity edema x 2 weeks with RUQ abdominal discomfort x 5 months. Pt was afebrile, hemodynamically stable, well-appearing, and non-toxic during ED course. On exam, nonicteric sclerae. Skin does not appear jaundiced. Heart sounds with regular rate and rhythm, normal S1/S2. Shallow respirations present, even and unlabored. No wheezing, rhonchi or rales. Abdomen appears distended and tender to palpation in RUQ, RLQ and epigastric region with guarding present. No CVA tenderness elicited. Bilateral 2+, nonpitting edema present in the lower extremities, L > R. No calf tenderness or palpable cords. DP pulses 1+ b/l. Pt given Roxicodone for abdominal discomfort while in ED with some improvement. Administered Lasix 40 mg IV for diuresis. Pt took Lasix 80 mg PO this morning. EKG demonstrated an AV dual-paced rhythm with prolonged AV conduction, WA interval 250 ms, and QTc of 477 ms, reviewed by myself and the attending physician. CXR demonstrates mild pulmonary vascular redistribution, and left ICD. No focal consolidation, or pleural effusion. Labs: CBC positive for macrocytic anemia (Hgb 9.9 / Hct 30.8), and thrombocytopenia (platelets 80,000) [Hgb 9.5 / Plts 82,000 on 07/16] BMP positive for elevated Cr (1.78) at baseline Hepatic function panel positive for hyperproteinemia (8.2) Troponin T negative PT 1.2 Pro BNP elevated (3472) / Pro BNP on 08/01 was 2700 (care everywhere) Repeat blood glucose positive for hyperglycemia (BG 45). Pt able to tolerate PO food and fluids in ED. Repeat BG 126. US abdomen performed on 07/16 demonstrated cirrhotic liver morphology and splenomegaly. No focal hepatic lesions. CT abdomen/pelvis today negative for acute process; changes of cirrhosis and portal HTN. CT demonstrates cirrhotic liver morphology. Small right pleural effusion also identified. At this time, the most likely Dx is hypervolemia related to liver cirrhosis verses CHF exacerbation. Given the HANDP, labs, and imaging performed today, I have a low suspicion for ACS, PE, pneumonia, pneumothorax, acute cholecystitis, pancreatitis or hepatic encephalopathy. Recommend ECHO to be performed. Pt admitted to Hepatology for further evaluation and management. Vital signs reviewed. Triage records and medical records reviewed. Nursing notes reviewed and incorporated. Encounter Diagnosis ICD-10-CM 1. Hypervolemia, unspecified hypervolemia type E87.70 2. Cirrhosis of liver with ascites, unspecified hepatic cirrhosis type (HCC) K74.60 Plan The Patient was ADMITTED TO: GI-Hepatology. Condition at time of disposition: improved and stable SIGNATURE: Smitha Isbell PA-C ATTENDING NOTE: I have personally performed a face to face assessment of the patient and have reviewed the [employer]/PA/EDUCATION GENERAL MANAGER note. My grady findings include: 67 year old female here with hx of cirrhosis, presenting with fluid overload and SOB. SOB worsening slowly over past few weeks. No chest pain. +abd distention. Also c/o leg edema. Mild worsening over Last 2 weeks. States has been seen by her proposition player at her hometown. Told it was not related to her heart failure. Is currently on Lasix twice a day, 80 mg total. Took her dose for today. In the ED, does have lower extremity swelling, as well as abdominal distention. Abdomen otherwise nontender, soft. Faint bibasilar crackles noted. No acute distress. Workup reveals x-ray with interstitial edema. CAT scan obtained, at the request of patient's chief strategy officer. At this time, discussed with and admitted to hepatology for further workup and management. Lasix 40 mg IV given here in the ED, to accelerated diuresis. Creatinine today appears improved from prior, still at baseline. EKG Interpretation: Paced rhythm, 70, appropriate pacing Other additions or changes: None Signature: Alexei Schaffer MD Date: 08/21/2017 Time: 4:34 PM Smitha Roman) JENA Isbell 08/19/17 2216 Alexei Schaffer MD 08/21/17 1643 ED NOTE Observed: 08/19/2017 Status: COMPLETED Source: [place] 2:39 PM [facility] REPOSITORY HNO ID: [id number] Author: Vianney (Rn) ROMÁN Nielson Service: (none) Author Type: Registered Nurse Type: ED Notes Filed: 08/19/2017 2:39 PM Note Text: Pt referred to ED for SOB from swollen liver seen on recent CT scan at OSH per MD García. Hx Hepatic cirrhosis. C/o abd pain. ECG in progress. AANDO, NAD< ABC's intact, MAEx4. CNPN Observed: 08/19/2017 Status: COMPLETED Source: [place] 12:00 AM [facility] REPOSITORY Telephone (GASTMN) KALYN CAIN ([id number]) 1950 F Date Time Provider Department 08/19/17 ZAC PEARSON GASTKY During your visit today, we recorded the following information about you: Tomas Nelson [facility] [place] 08/19/2017 8:59 AM Signed Patient phones requesting add-on appointment as soon as possible Patient states she has recently undergone imaging locally that shows swelling around her liver ANDamp; spleen; local doctor has ordered a nuclear medicine scan which she is scheduled to have soon Her doctor recommended she follow up here; patient states it is getting harder to breathe, states she has gone to the ER but they do nothing and local doctor wants her seen here Patient states local doc is supposed to fax the results of the above-mentioned imaging to provider (not yet sent) Tomas Tamar Nelson [facility] [place] Zac Pearson MD 08/19/2017 11:19 AM Addendum Lillie, please call pt/spouse She has cirrhosis She needs to come to our [facility] ER now for evaluation MD Yazmin Montalvo LPN 08/19/2017 11:30 AM Signed Called and spoke to patient at this time. Patient was verified by name and date of . Patient stated that her was not home at the moment but as soon as he got home they would come to the ER for evaluation. Patient was given the address and location of the ER. Yazmin Seay LPN Allergies As of Date: 08/19/2017 Noted Allergy Reaction NEXIUM (ESOMEPRAZOLE MAGNESIUM) 07/31/2016 9 - Itching Date Reviewed: 08/19/2017 Reviewed by: Annabelle (Rn) ROMÁN Montero - Fully Assessed Reason for Visit: phone call/add-on appointment [Other] Prescriptions as of 08/19/2017 Sig: VITAMIN D-3 ORAL Take by mouth. TRESIBA FLEXTOUCH U-100 SUBCU* Inject 40 Units subcutaneousl* GLUCAGON EMERGENCY KIT (HUMAN* ACCU-CHEK DISHA PLUS TEST STR* USE 4 TIMES DAILY NOVOLOG FLEXPEN U-100 INSULIN* USE DIRECTED NEEDED SLI* TRESIBA FLEXTOUCH U-200 INSUL* INJECT 50 UNIT(S) TWICE A DAY* FUROSEMIDE 40 MG TABLET Take 1 tablet by mouth once d* ELBASVIR 50 MG-GRAZOPREVIR 10* Take 1 tablet by mouth once d* X TOUJEO SOLOSTAR SUBCUTANEOUS Inject 50 Units subcutaneousl* RAMIPRIL 5 MG CAPSULE Take 5 mg by mouth once daily. PROMETHAZINE 25 MG TABLET Take 25 mg by mouth every 6 h* HYDROCODONE 5 MG-ACETAMINOPHE* Take 1 tablet by mouth every * LEVOTHYROXINE 137 MCG TABLET Take 137 mcg by mouth daily b* CLOPIDOGREL 75 MG TABLET Take 75 mg by mouth once rebecca* ATORVASTATIN 40 MG TABLET Take 40 mg by mouth once rebecca* CUSTOM SLIDING SCALE ASPART I* Inject subcutaneously every * ASPIRIN 81 MG TABLET,DELAYED * Take 81 mg by mouth once rebecca* CARVEDILOL 12.5 MG TABLET Take 12.5 mg by mouth twice d* FERROUS SULFATE 325 MG (65 MG* Take 325 mg by mouth daily wi* GABAPENTIN 300 MG CAPSULE Take 300 mg by mouth twice da* SPIRONOLACTONE 25 MG TABLET Take 25 mg by mouth once rebecca* PANTOPRAZOLE 20 MG TABLET,DEL* Take 20 mg by mouth once rebecca* X ATROVENT 18 MCG/ACTUATION AER* Problem List As Of Date 08/19/2017 Noted Resolved Hepatic cirrhosis due to chronic hepatitis C in*INVALID FOR* Morbid obesity (HCC) [E66.01] INVALID FOR* Portal hypertension with esophageal varices (HC*INVALID FOR* Thrombocytopenia (HCC) [D69.6] INVALID FOR* CKD (chronic kidney disease) stage 4, GFR 15-29*INVALID FOR* Volume overload [E87.70] INVALID FOR* Encounter Status:Closed by TOMAS QUEZADA on 08/19/17 CT ABDOMEN W/O Observed: 08/05/2017 Status: F Source: [facility] CONTRAST 1:15 PM [facility] OR[facility]IN[facility] CT ABDOMEN W/O CONTRAST CLINICAL STATEMENT: CHF, CAD, LIVER CIRRHOSIS COMPARISON: 07/11/2010 FINDINGS:There is a small RIGHT pleural effusion new from the prior study a focal area of pleural thickening posteromedially within the LEFT hemithorax not appreciated on the prior imaging study. There are some nonspecific atelectatic changes present in the RIGHT lung base. The liver is small and lobulated without biliary tree dilatation. The spleen is mildly prominent. Diffuse varicosities in the upper abdomen are stable. The pancreas demonstrates no contributory findings. Kidneys are atrophic. There is an enlarging hypodensity in the LEFT kidney incompletely characterized on today's noncontrast enhanced study. There is no collecting system dilatation. No disproportionate bowel dilatation to suggest a focal obstruction is noted. Diffuse osteopenia and degenerative changes present in the osseous structures. There is diffuse calcification along the aorta without retroperitoneal adenopathy. IMPRESSION:Worsening aeration to the lung bases. Redemonstration of cirrhosis with portal hypertension and varicosities formation This exam was performed according to our departmental dose optimization program, and includes the following measures where applicable: automated exposure control, adjustment of the mAs and/or kVp accord ing to patient size and/or exam, and an iterative reconstruction algorithm. Interpreted By: Christine Robin MD Preliminary Report By: Christine Robin MD Electronically Signed By: Christine Robin MD Dictated Date: 08/05/2017 4:06:17 PM Prelim Date: 08/05/2017 4:06:17 PM Sign Date: 08/05/2017 4:08:32 PM XR CHEST 1 VIEW Observed: 08/01/2017 Status: F Source: [facility] 7:50 AM [facility] REPOSITORY ORIGINAL XR CHEST 1 VIEW CLINICAL STATEMENT: chest pain. COMPARISON: 07/26/2017 FINDINGS: Heart remains enlarged with a biventricular configuration. Pulmonary vascular cephalization and veiling of the lower lobe vessels is again associated with small effusions. Loss of spatial and contrast resolution is again identified due to morbid obesity. A multichamber AICD remains in functional position. IMPRESSION: 1. Mild pulmonary edema pattern, similar to prior assessment. Interpreted By: Joselito Bender DO Preliminary Report By: Joselito Bender DO Electronically Signed By: Joselito Bender DO Dictated Date: 08/01/2017 7:51:55 AM Prelim Date: 08/01/2017 7:51:55 AM Sign Date: 08/01/2017 7:54:31 AM CBC Collected: 08/01/2017 Status: F Source: [facility] 7:30 AM [facility] REPOSITORY TYPE CODE TESTS RESULT OUT OF REFERENCE UNITS RANGE LAB WBC(LOINC) 4.60-10.80 10 3/mcL WBC 6.00 LAB RBCCT(LOINC 4.20-5.40 10 6/mcL ) Low RBC 2.63 LAB HGB(LOINC) 12.0-16.0 G/dL Low Hgb 9.0 LAB HCT(LOINC) 37.0-47.0 % Low Hct 26.5 LAB MCV(LOINC) 80.0-94.0 fL High MCV 101.0 LAB MCH(LOINC) 27.0-31.2 pg High MCH 34.2 LAB MCHC(LOINC) 33.0-37.0 G/dL MCHC 33.9 LAB RDW(LOINC) 11.5-14.5 % High RDW 15.8 LAB PLT(LOINC) 130-400 10 3/mcL Low Platelet 72 LAB MPV(LOINC) 7.4-10.4 fL MPV 9.8 Performed By: #### CBC, ADIFF, ANEU, APTT, PRO, TROP, PBNP, GFR, BMP, ABOG, ANSG #### [address] [address] #### ANTID, AUTC #### [address] [address] .AUTO DIFF Collected: 08/01/2017 Status: F Source: [facility] 7:30 AM [facility] REPOSITORY TYPE CODE TESTS RESULT OUT OF REFERENCE UNITS RANGE LAB DENICE(LOINC) 37.0-80.0 % Neutrophil % 72.5 LAB LYM(LOINC) 10.0-50.0 % Lymphocyte % 16.7 LAB MON(LOINC) 1.7-13.0 % Monocyte % 5.5 LAB EO(LOINC) 0.0-7.0 % Eosinophil % 4.4 LAB BAS(LOINC) 0.0-2.5 % Basophil % 0.9 LAB ABLYM(LOIN 0.77-3.85 10 3/mcL C) Lymphocyte, 1.00 Absolute LAB JAMES(LOINC 0.15-1.00 10 3/mcL ) Monocyte, 0.30 Absolute LAB AEOS(LOINC 0.00-0.40 10 3/mcL ) Eosinophil, 0.30 Absolute LAB ABAS(LOINC 0.00-0.19 10 3/mcL ) Basophil, 0.10 Absolute Performed By: #### CBC, ADIFF, ANEU, APTT, PRO, TROP, PBNP, GFR, BMP, ABOG, ANSG #### [address] [address] #### ANTID, AUTC #### [address] [address] .NEUABS Collected: 08/01/2017 Status: F Source: [facility] 7:30 AM [facility] REPOSITORY TYPE CODE TESTS RESULT OUT OF REFERENCE UNITS RANGE LAB ANEU(LOINC) 2.85-6.16 10 3/mcL Neutrophil, 4.40 Absolute Performed By: #### CBC, ADIFF, ANEU, APTT, PRO, TROP, PBNP, GFR, BMP, ABOG, ANSG #### [address] [address] #### ANTID, AUTC #### [address] [address] APTT Collected: 08/01/2017 Status: F Source: [facility] 7:30 AM [facility] REPOSITORY TYPE CODE TESTS RESULT OUT OF REFERENCE UNITS RANGE LAB PDOSE(LOIN C) Heparin dose None (APTT) LAB APTT0(LOIN 26.9-35.2 seconds C) APTT 27.9 Result Comment: For Heparin anticoagulation therapy, the recommended therapeutic range is: 40-68.8 seconds (1.5 - 2.5 the normal plasma mean). Patients on heparin therapy may have an extreme result. Performed By: #### CBC, ADIFF, ANEU, APTT, PRO, TROP, PBNP, GFR, BMP, ABOG, ANSG #### [address] [address] #### ANTID, AUTC #### [address] [address] PRO Collected: 08/01/2017 Status: F Source: [facility] 7:30 AM [facility] REPOSITORY TYPE CODE TESTS RESULT OUT OF REFERENCE UNITS RANGE LAB PT(LOINC) 9.8-13.5 seconds Protime High 14.5 LAB INR(LOINC) 0.9-1.2 ratio PT High International 1.4 Ratio Result Comment: Standard Dose 2.0 - 3.0 High Dose 2.5 - 3.5 The recommended therapeutic range for oral anticoagulant therapy is: LOW RISK: Prophylaxis of venous thrombosis INR: 2.0 - 3.0 Treatment of pulmonary embolism 2.0 - 3.0 Prevention of systemic embolism 2.0 - 3.0 HIGH RISK: Mechanical prosthetic valves 2.5 - 3.5 Performed By: #### CBC, ADIFF, ANEU, APTT, PRO, TROP, PBNP, GFR, BMP, ABOG, ANSG #### [address] [address] #### ANTID, AUTC #### [address] [address] TROP Collected: 08/01/2017 Status: F Source: [facility] 7:30 AM [facility] REPOSITORY TYPE CODE TESTS RESULT OUT OF REFERENCE UNITS RANGE LAB TROP(LOINC) 0.00-0.30 ng/mL Troponin <0.30 Result Comment: Below measuring range >=0.30 Consistent with cardiac damage, increased clinical risk and possibility of myocardial infarction. Serial measurements, clinical history, appropriate symptoms and/or ECG changes may help assess possibility of MN. *Other non-acute coronary syndrome conditions such as CHF, myocarditis, pulmonary emboli, sepsis and cardiac surgery could result in myocardial damage and increased troponin levels. Performed By: #### CBC, ADIFF, ANEU, APTT, PRO, TROP, PBNP, GFR, BMP, ABOG, ANSG #### [address] [address] #### ANTID, AUTC #### [address] [address] PBNP Collected: 08/01/2017 Status: F Source: [facility] 7:30 AM [facility] REPOSITORY TYPE CODE TESTS RESULT OUT OF REFERENCE UNITS RANGE LAB PBNP(LOINC) 5.0-300.0 pg/mL High N-Terminal 2708.0 proBNP Result Comment: In the presence of acute dyspnea, CHF likely if: Age <50 years: >450 pg/mL Age 50-75 years: >900 pg/mL Age >75 years: >1800 pg/mL Performed By: #### CBC, ADIFF, ANEU, APTT, PRO, TROP, PBNP, GFR, BMP, ABOG, ANSG #### [address] [address] #### ANTID, AUTC #### [address] [address] .GFR Collected: 08/01/2017 Status: F Source: [facility] 7:30 AM [facility] REPOSITORY TYPE CODE TESTS RESULT OUT OF REFERENCE UNITS RANGE LAB GFRAA(LOINC ml/min/1.73 ) sqm GFR 30 Citizen Of [place] Result Comment: GFR Population mean for , Non- Americans Ages 20-29 = 116 mL/min/1.73 sq.m. Ages 30-39 = 107 mL/min/1.73 sq.m. Ages 40-49 = 99 mL/min/1.73 sq.m. Ages 50-59 = 93 mL/min/1.73 sq.m. Ages 60-69 = 85 mL/min/1.73 sq.m. Ages 70+ = 75 mL/min/1.73 sq.m. Chronic Kidney Disease: Less than 60 mL/min/1.73 square meters End Stage Renal Disease: Less than 15 mL/min/1.73 square meters LAB GFRNO(LOINC) ml/min/1.73sqm GFR Non- 25 Result Comment: GFR Population mean for , Non- Americans Ages 20-29 = 116 mL/min/1.73 sq.m. Ages 30-39 = 107 mL/min/1.73 sq.m. Ages 40-49 = 99 mL/min/1.73 sq.m. Ages 50-59 = 93 mL/min/1.73 sq.m. Ages 60-69 = 85 mL/min/1.73 sq.m. Ages 70+ = 75 mL/min/1.73 sq.m. Chronic Kidney Disease: Less than 60 mL/min/1.73 square meters End Stage Renal Disease: Less than 15 mL/min/1.73 square meters Performed By: #### CBC, ADIFF, ANEU, APTT, PRO, TROP, PBNP, GFR, BMP, ABOG, ANSG #### [address] [address] #### ANTID, AUTC #### [address] [address] BMP Collected: 08/01/2017 Status: F Source: [facility] 7:30 AM [facility] REPOSITORY TYPE CODE TESTS RESULT OUT OF REFERENCE UNITS RANGE LAB 1547-9 80-115 mg/dL GLUCOSE High 189 LAB NA(LOINC) 136-146 mEq/L Sodium Level 142 LAB K(LOINC) 3.5-5.1 mEq/L Potassium Level 4.6 LAB CL(LOINC) 98-107 mEq/L Chloride 105 LAB CO2(LOINC) 23-31 mEq/L CO2 26 LAB EBAL(LOINC mEq/L ) Electrolyte Balance 11.0 LAB BUN(LOINC) 7.0-18.0 mg/dL BUN High 55.6 LAB CRE(LOINC) 0.6-1.2 mg/dL Creatinine High Lvl (s) 2.0 LAB BC(LOINC) 7-27 ratio High BUN/Creatinine 28 Ratio LAB CA(LOINC) 8.4-10.2 mg/dL Calcium Lvl 9.1 Performed By: #### CBC, ADIFF, ANEU, APTT, PRO, TROP, PBNP, GFR, BMP, ABOG, ANSG #### [address] [address] #### ANTID, AUTC #### [address] [address] GEL ABO Collected: 08/01/2017 Status: F Source: [facility] 7:30 AM [facility] CHRONICALLY ILL REPOSITORY TYPE CODE TESTS RESULT OUT OF RANGE REFERENCE UNITS LAB ABORH(LOINC ) Unknown ABO/Rh O POS Interp Performed By: #### CBC, ADIFF, ANEU, APTT, PRO, TROP, PBNP, GFR, BMP, ABOG, ANSG #### [address] [address] #### ANTID, AUTC #### [place] [id number] GEL ABS Collected: 08/01/2017 Status: F Source: [facility] 7:30 AM [facility] REPOS[facility]ORY TYPE CODE TESTS RESULT OUT OF REFERENCE UNITS RANGE LAB ANSG(LOINC ) Antibody Positive ABSC Screen Gel Performed By: #### CBC, ADIFF, ANEU, APTT, PRO, TROP, PBNP, GFR, BMP, ABOG, ANSG #### [address] [address] #### ANTID, AUTC #### [address] [address] ABID Collected: 08/01/2017 Status: P Source: [facility] 7:30 AM [facility] REPOSITORY Order Comment: Ordered by Discern Expert TYPE CODE TESTS RESULT OUT OF RANGE REFERENCE UNITS LAB ANTID(LOIN C) Unknown Antibody ID Result Comment: Anti-E Inconclusive Anti-FyA Performed By: #### CBC, ADIFF, ANEU, APTT, PRO, TROP, PBNP, GFR, BMP, ABOG, ANSG #### [address] [address] #### ANTID, AUTC #### [place] [id number] AUTO Collected: 08/01/2017 Status: F Source: [facility] 7:30 AM [facility] RE[facility] Order Comment: Ordered by Discern Expert TYPE CODE TESTS RESULT OUT OF REFERENCE UNITS RANGE LAB AUTO(LOINC ) Auto Control Negative Performed By: #### CBC, ADIFF, ANEU, APTT, PRO, TROP, PBNP, GFR, BMP, ABOG, ANSG #### [address] [address] #### ANTID, AUTC #### [address] [address] XR CHEST 1 VIEW Observed: 07/26/2017 Status: F Source: [facility] 11:10 AM [facility] REPOSITORY ORIGINAL XR CHEST 1 VIEW PORTABLE AP TIME: CLINICAL STATEMENT: chest pain COMPARISON: 05/27/2017 FINDINGS: Heart is moderately enlarged. Mild central pulmonary edema. Left chest dual-lead pacemaker/AICD device. No pneumothorax. Small bilateral pleural effusions. IMPRESSION: Mild CHF suspected. Interpreted By: Chino Berman MD Preliminary Report By: Chino Berman MD Electronically Signed By: Chino Berman MD Dictated Date: 07/26/2017 11:23:07 AM Prelim Date: 07/26/2017 11:23:07 AM Sign Date: 07/26/2017 11:24:40 AM CBC Collected: 07/26/2017 Status: F Source: [facility] 10:46 AM [facility] REPOS[facility]ORY TYPE CODE TESTS RESULT OUT OF REFERENCE UNITS RANGE LAB WBC(LOINC) 4.60-10.80 10 3/mcL WBC 4.90 LAB RBCCT(LOINC 4.20-5.40 10 6/mcL ) Low RBC 2.56 LAB HGB(LOINC) 12.0-16.0 G/dL Low Hgb 8.9 LAB HCT(LOINC) 37.0-47.0 % Low Hct 26.0 LAB MCV(LOINC) 80.0-94.0 fL High MCV 101.4 LAB MCH(LOINC) 27.0-31.2 pg High MCH 34.6 LAB MCHC(LOINC) 33.0-37.0 G/dL MCHC 34.2 LAB RDW(LOINC) 11.5-14.5 % High RDW 15.5 LAB PLT(LOINC) 130-400 10 3/mcL Low Platelet 72 LAB MPV(LOINC) 7.4-10.4 fL MPV 9.8 Performed By: #### CBC, ADIFF, ANEU, TROP, GFR, BMP #### [place] [id number] .AUTO DIFF Collected: 07/26/2017 Status: F Source: [facility] 10:46 AM [facility] REPOSITORY TYPE CODE TESTS RESULT OUT OF REFERENCE UNITS RANGE LAB DENICE(LOINC) 37.0-80.0 % Neutrophil % 74.5 LAB LYM(LOINC) 10.0-50.0 % Lymphocyte % 14.1 LAB MON(LOINC) 1.7-13.0 % Monocyte % 6.0 LAB EO(LOINC) 0.0-7.0 % Eosinophil % 4.4 LAB BAS(LOINC) 0.0-2.5 % Basophil % 1.0 LAB ABLYM(LOIN 0.77-3.85 10 3/mcL C) Low Lymphocyte, 0.70 Absolute LAB JAMES(LOINC 0.15-1.00 10 3/mcL ) Monocyte, 0.30 Absolute LAB AEOS(LOINC 0.00-0.40 10 3/mcL ) Eosinophil, 0.20 Absolute LAB ABAS(LOINC 0.00-0.19 10 3/mcL ) Basophil, 0.00 Absolute Performed By: #### CBC, ADIFF, ANEU, TROP, GFR, BMP #### [place] [address] .NEUABS Collected: 07/26/2017 Status: F Source: [facility] 10:46 [facility] REPOSITORY TYPE CODE TESTS RESULT OUT OF REFERENCE UNITS RANGE LAB ANEU(LOINC) 2.85-6.16 10 3/mcL Neutrophil, 3.60 Absolute Performed By: #### CBC, ADIFF, ANEU, TROP, GFR, BMP #### [place] [id number] TROP Collected: 07/26/2017 Status: F Source: [facility] 10:46 AM [facility] REPOSITORY TYPE CODE TESTS RESULT OUT OF REFERENCE UNITS RANGE LAB TROP(LOINC) 0.00-0.30 ng/mL Troponin <0.30 Result Comment: Below measuring range >=0.30 Consistent with cardiac damage, increased clinical risk and possibility of myocardial infarction. Serial measurements, clinical history, appropriate symptoms and/or ECG changes may help assess possibility of MN. *Other non-acute coronary syndrome conditions such as CHF, myocarditis, pulmonary emboli, sepsis and cardiac surgery could result in myocardial damage and increased troponin levels. Performed By: #### CBC, ADIFF, ANEU, TROP, GFR, BMP #### [place] [address] [address] .GFR Collected: 07/26/2017 Status: F Source: [facility] 10:46 AM [facility] REPOSITORY TYPE CODE TESTS RESULT OUT OF REFERENCE UNITS RANGE LAB GFRAA(LOINC ml/min/1.73 ) sqm GFR 34 Citizen [place] Result Comment: GFR Population mean for , Non- Americans Ages 20-29 = 116 mL/min/1.73 sq.m. Ages 30-39 = 107 mL/min/1.73 sq.m. Ages 40-49 = 99 mL/min/1.73 sq.m. Ages 50-59 = 93 mL/min/1.73 sq.m. Ages 60-69 = 85 mL/min/1.73 sq.m. Ages 70+ = 75 mL/min/1.73 sq.m. Chronic Kidney Disease: Less than 60 mL/min/1.73 square meters End Stage Renal Disease: Less than 15 mL/min/1.73 square meters LAB GFRNO(LOINC) ml/min/1.73sqm GFR Non- 28 Result Comment: GFR Population mean for , Non- Americans Ages 20-29 = 116 mL/min/1.73 sq.m. Ages 30-39 = 107 mL/min/1.73 sq.m. Ages 40-49 = 99 mL/min/1.73 sq.m. Ages 50-59 = 93 mL/min/1.73 sq.m. Ages 60-69 = 85 mL/min/1.73 sq.m. Ages 70+ = 75 mL/min/1.73 sq.m. Chronic Kidney Disease: Less than 60 mL/min/1.73 square meters End Stage Renal Disease: Less than 15 mL/min/1.73 square meters Performed By: #### CBC, ADIFF, ANEU, TROP, GFR, BMP #### [place] [address] [address] BMP Collected: 07/26/2017 Status: F Source: [facility] 10:46 AM [facility] REPOSITORY TYPE CODE TESTS RESULT OUT OF REFERENCE UNITS RANGE LAB 1547-9 80-115 mg/dL GLUCOSE High 280 LAB NA(LOINC) 136-146 mEq/L Sodium Level 136 LAB K(LOINC) 3.5-5.1 mEq/L Potassium Level 5.1 LAB CL(LOINC) 98-107 mEq/L Chloride 103 LAB CO2(LOINC) 23-31 mEq/L CO2 27 LAB EBAL(LOINC mEq/L ) Electrolyte Balance 6.0 LAB BUN(LOINC) 7.0-18.0 mg/dL BUN High 52.7 LAB CRE(LOINC) 0.6-1.2 mg/dL Creatinine High Lvl (s) 1.8 LAB BC(LOINC) 7-27 ratio High BUN/Creatinine 29 Ratio LAB CA(LOINC) 8.4-10.2 mg/dL Calcium Lvl 8.8 Performed By: #### CBC, ADIFF, ANEU, TROP, GFR, BMP #### [place] [id number] [place], [place] [address] PBNP Collected: 07/26/2017 Status: F Source: [facility] 10:46 AM [facility] REPOSITORY TYPE CODE TESTS RESULT OUT OF REFERENCE UNITS RANGE LAB PBNP(LOINC) 5.0-300.0 pg/mL High N-Terminal 2373.0 proBNP Result Comment: In the presence of acute dyspnea, CHF likely if: Age <50 years: >450 pg/mL Age 50-75 years: >900 pg/mL Age >75 years: >1800 pg/mL Performed By: #### PBNP #### [address] [address] CBC Collected: 07/22/2017 Status: F Source: [facility] 11:24 AM [facility] REPOSITORY TYPE CODE TESTS RESULT OUT OF REFERENCE UNITS RANGE LAB WBC(LOINC) 4.50-10.80 10 3/mcL WBC 5.80 LAB RBCCT(LOINC 4.10-5.30 10 6/mcL ) Low RBC 2.61 LAB HGB(LOINC) 12.0-16.0 G/dL Low Hgb 8.8 LAB HCT(LOINC) 34.0-46.0 % Low Hct 26.5 LAB MCV(LOINC) 80.0-99.0 fL High MCV 101.6 LAB MCH(LOINC) 27.0-33.0 pg High MCH 33.8 LAB MCHC(LOINC) 32.0-36.0 G/dL MCHC 33.3 LAB RDW(LOINC) 11.5-15.5 % High RDW 16.0 LAB PLT(LOINC) 150-450 10 3/mcL Low Platelet 69 LAB MPV(LOINC) 6.6-10.5 fL MPV 10.0 Performed By: #### CBC, ADIFF, ANEU, CMP, GFR #### [place] [address] .AUTO DIFF Collected: 07/22/2017 Status: F Source: [facility] 11:24 AM [facility] REPOSITORY TYPE CODE TESTS RESULT OUT OF REFERENCE UNITS RANGE LAB DENICE(LOINC) 50.0-75.0 % Neutrophil % 70.4 LAB LYM(LOINC) 20.0-40.0 % Low Lymphocyte % 18.0 LAB MON(LOINC) 2.0-13.0 % Monocyte % 5.8 LAB EO(LOINC) 0.0-6.0 % Eosinophil % 4.7 LAB BAS(LOINC) 0.0-2.5 % Basophil % 1.1 LAB ABLYM(LOIN 0.90-4.32 10 3/mcL C) Lymphocyte, 1.00 Absolute LAB JAMES(LOINC 0.09-1.40 10 3/mcL ) Monocyte, 0.30 Absolute LAB AEOS(LOINC 0.00-0.65 10 3/mcL ) Eosinophil, 0.30 Absolute LAB ABAS(LOINC 0.00-0.27 10 3/mcL ) Basophil, 0.10 Absolute Performed By: #### CBC, ADIFF, ANEU, CMP, GFR #### [place] [address] .NEUABS Collected: 07/22/2017 Status: F Source: [facility] 11:24 AM [facility] REPOSITORY TYPE CODE TESTS RESULT OUT OF REFERENCE UNITS RANGE LAB ANEU(LOINC) 2.25-8.10 10 3/mcL Neutrophil, 4.10 Absolute Performed By: #### CBC, ADIFF, ANEU, CMP, GFR #### [place] [address] CMP Collected: 07/22/2017 Status: F Source: [facility] 11:24 AM [facility] REPOSITORY TYPE CODE TESTS RESULT OUT OF REFERENCE UNITS RANGE LAB GLU(LOINC) 82-115 mg/dL Glucose Level 110 LAB NA(LOINC) 136-145 mEq/L Sodium Level 143 LAB K(LOINC) 3.5-5.0 mEq/L Potassium Level 4.6 LAB CL(LOINC) 98-110 mEq/L Chloride 108 LAB CO2(LOINC) 22-32 mEq/L CO2 29 LAB EBAL(LOINC 4.0-15.0 mEq/L ) Electrolyte Balance 6.0 LAB BUN(LOINC) 8.0-22.0 mg/dL BUN High 47.0 LAB CRE(LOINC) 0.50-1.20 mg/dL Creatinine High Lvl (s) 1.81 LAB BC(LOINC) 10.0-22.0 ratio High BUN/Creatinine 26.0 Ratio LAB CA(LOINC) 8.4-10.1 mg/dL Calcium Lvl 9.3 LAB PROT(LOINC 6.0-8.5 G/dL ) Total Protein 7.0 LAB ALB(LOINC) 3.2-4.8 G/dL Albumin Level 3.3 LAB GLB(LOINC) 1.5-3.8 G/dL Globulin 3.7 LAB AG(LOINC) 0.9-1.6 ratio A/G Ratio 0.9 LAB BILT(LOINC 0.2-1.2 mg/dL ) Bili Total 0.7 LAB AP(LOINC) 38-126 U/L Alk Phos 102 LAB AST(LOINC) 8-34 U/L AST/SGOT 13 LAB ALT(LOINC) 10-49 U/L ALT/SGPT 13 Performed By: #### CBC, ADIFF, ANEU, CMP, GFR #### [place] [address] .GFR Collected: 07/22/2017 Status: F Source: [facility] 11:24 AM [facility] REPOSITORY TYPE CODE TESTS RESULT OUT OF REFERENCE UNITS RANGE LAB GFRAA(LOINC ml/min/1.73 ) sqm GFR 34 Citizen [place] Result Comment: GFR Population mean for , Non- Americans Ages 20-29 = 116 mL/min/1.73 sq.m. Ages 30-39 = 107 mL/min/1.73 sq.m. Ages 40-49 = 99 mL/min/1.73 sq.m. Ages 50-59 = 93 mL/min/1.73 sq.m. Ages 60-69 = 85 mL/min/1.73 sq.m. Ages 70+ = 75 mL/min/1.73 sq.m. Chronic Kidney Disease: Less than 60 mL/min/1.73 square meters End Stage Renal Disease: Less than 15 mL/min/1.73 square meters LAB GFRNO(LOINC) ml/min/1.73sqm GFR Non- 28 Result Comment: GFR Population mean for , Non- Americans Ages 20-29 = 116 mL/min/1.73 sq.m. Ages 30-39 = 107 mL/min/1.73 sq.m. Ages 40-49 = 99 mL/min/1.73 sq.m. Ages 50-59 = 93 mL/min/1.73 sq.m. Ages 60-69 = 85 mL/min/1.73 sq.m. Ages 70+ = 75 mL/min/1.73 sq.m. Chronic Kidney Disease: Less than 60 mL/min/1.73 square meters End Stage Renal Disease: Less than 15 mL/min/1.73 square meters Performed By: #### CBC, ADIFF, ANEU, CMP, GFR #### [place] [address] CT THORAX W/O Observed: 07/22/2017 Status: F Source: [facility] CONTRAST 10:54 AM [facility] REPOS[facility] ORIGINAL CT THORAX W/O CONTRAST CLINICAL STATEMENT: SOB,CHEST PAIN COMPARISON: 04/16/2016 FINDINGS:No axillary adenopathy is identified. The heart size is at the upper limits of normal. No pericardial thickening or effusion is identified. Coronary artery calcification is seen. Calcified plaq ue is seen within the aorta which is normal in caliber. Multiple small mediastinal lymph nodes are seen. The major airways are unremarkable. The esophagus is normal in course and caliber. Limited images through the upper abdomen demonstrate a prior cholecystectomy. The liver has a mildly nodular contour, likely due to cirrhosis. There are multiple splenic and gastrohepatic varices. The s pleen is mildly enlarged. A cyst is seen within the left kidney. Tiny bilateral pleural effusions are seen, right greater than left. A small amount of fluid is seen within the left major fissure. A stable 6 mm subpleural nodule is seen posteriorly within the right up per lobe on image #28. Minimal emphysematous changes are again noted. No acute infiltrate is identified. IMPRESSION:No acute intrathoracic process is identified. Tiny bilateral pleural effusions. Findings highly suggestive of cirrhosis with portal venous hypertension. This exam was performed according to our departmental dose optimization program, and includes the following measures where applicable: automated exposure control, adjustment of the mAs and/or kVp accord ing to patient size and/or exam, and an iterative reconstruction algorithm. Interpreted By: Micheline Ayala MD Preliminary Report By: Micheline Ayala MD Electronically Signed By: Micheline Ayala MD Dictated Date: 07/22/2017 11:22:36 AM Prelim Date: 07/22/2017 11:22:36 AM Sign Date: 07/22/2017 11:31:03 AM CNOV Observed: 07/16/2017 Status: COMPLETED Source: [place] 3:10 PM [facility] REPOSITORY Office Visit ([id number]) KALYN CAIN ([id number]) 1950 F Date Time Provider Department 07/16/17 3:10 PM ZAC PEARSON GASTA5 During your visit today, we recorded the following information about you: Temperature Pulse Blood pressure Weight 97.6 degrees 67/minute 149/50 109.3 kg Height 1.6 m Zac Pearson MD 07/16/2017 4:20 PM Signed Follow Up Visit Medications: Current Outpatient Prescriptions: CALCIUM CARBONATE/VITAMIN D3 (VITAMIN D-3 ORAL) Take by mouth. INSULIN DEGLUDEC (TRESIBA FLEXTOUCH U-100 SUBCUTANEOUS) Inject 40 Units subcutaneously twice daily. TRESIBA FLEXTOUCH U-200 200 unit/mL (3 mL) injection INJECT 50 UNIT(S) TWICE A DAY BY SUBCUTANEOUS ROUTE FOR 30 DAYS. furosemide (LASIX) 40 mg tablet Take 1 tablet by mouth once daily. INSULIN GLARGINE,HUM.REC.ANLOG (TOUJEO SOLOSTAR SUBCUTANEOUS) Inject 50 Units subcutaneously twice daily. ramipril (ALTACE) 5 mg capsule Take 5 mg by mouth once daily. promethazine (PHENERGAN) 25 mg tablet Take 25 mg by mouth every 6 hours as needed. HYDROcodone-acetaminophen (NORCO) 5-325 mg per tablet Take 1 tablet by mouth every 6 hours as needed. levothyroxine (SYNTHROID) 137 mcg tablet Take 137 mcg by mouth daily before breakfast. clopidogrel (PLAVIX) 75 mg tablet Take 75 mg by mouth once daily. insulin aspart (NOVOLOG) 100 units/ml Inject subcutaneously every 6 hours. aspirin, enteric coated (ASPIRIN, ENTERIC COATED) 81 mg EC tablet Take 81 mg by mouth once daily. carvedilol (COREG) 12.5 mg tablet Take 12.5 mg by mouth twice daily with meals. gabapentin (NEURONTIN) 300 mg capsule Take 300 mg by mouth twice daily. pantoprazole DR (PROTONIX) 20 mg tablet Take 20 mg by mouth once daily. ATROVENT 18 MCG/ACTUATION AEROSOL INHALER GLUCAGON EMERGENCY KIT, HUMAN, 1 mg injection ACCU-CHEK DISHA PLUS TEST STRP test strip USE 4 TIMES DAILY NOVOLOG FLEXPEN U-100 INSULIN 100 unit/mL inpn USE DIRECTED NEEDED SLIDING SCALE elbasvir-grazoprevir (ZEPATIER) 50-100 mg tab Take 1 tablet by mouth once daily atorvastatin (LIPITOR) 40 mg tablet Take 40 mg by mouth once daily. ferrous sulfate (IRON) 325 mg (65 mg iron) tablet Take 325 mg by mouth daily with breakfast. spironolactone (ALDACTONE) 25 mg tablet Take 25 mg by mouth once daily. No current facility-administered medications for this visit. IMPRESSION: CIRRHOTIC LIVER MORPHOLOGY. NO FOCAL HEPATIC LESIONS. SPLENOMEGALY. + ETMelonie Burk (Dave) Lewis ? 5:35 PM Note Called patient today and discussed her lab results that showed that she had end Rx response and advised to repeat labs in 3 mon on 04/05 that will further tell if she has achieved SVR and also told that her kidney functions are elevated and per patient she has a f/u appt with her patent legal assistant locally and told her that I will ask my corporate legal secretary to mail the lab results to patient and she voiced understanding. ? Yany, Please mail the lab results to patient. 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 Otherwise she is compensated with no ascites no encephalopathy and no jaundice. She has never had bleeding from esophageal varices per notes. Low GFR with history of hemodialysis from acute injury in the past now no longer needing hemodialysis. GFR remains at 30 or below (28 on recent testing). Metabolic syndrome.CAD on aspirin and Plavix. Discussed natural history, progression of Cirrhosis to decompensation with ascites, jaundice, encephalopathy, bleeding, cancer potential; risks of cancer and q 6 month ultrasound for surveillance were discussed. Discussed potential eradication of virus does not reverse or cure cirrhosis and she remains at risk for decompensation of liver disease and liver cancer, needs q 6 month ultrasound for life and q 6 months office visits with us for life. Already on coreg for BB ppx. EGD for prophylactic banding high risk as had CAD and need for ongoing plavix and aspirin. BB as prophylaxis evidence based and appropriate here. Discussed with pt, she is happy with this Colonoscopy with local GI 2017, she will f/u with him for interval one (his report indicates 2019 for next, 3 yr interval, she will call to confirm this) Blood work today Ultrasound and office visit in 6 months Discussed above in detail with pt and spouse Call if issues prior to next OV Zac Pearson MD Referring Provider: ARELIS GALLEGO [[id number]] Allergies As of Date: 07/16/2017 Noted Allergy Reaction NEXIUM (ESOMEPRAZOLE MAGNESIUM) 07/31/2016 9 - Itching Date Reviewed: 07/16/2017 Reviewed by: Shaheen Kenyon - Fully Assessed Reason for Visit: Follow Up [171] Cmt: Hep C Primary Visit Diagnosis:Chronic hepatitis C without hepatic coma (HCC) [B18.2] Other Visit Diagnosis:Cirrhosis of liver without ascites, unspecified hepatic cirrhosis type (HCC) [K74.60] Order(s):HCV QUANT RNA BY PCR [SQHCQPCR] Order #: [id number] FUTURE PROTHROMBIN TIME/PT [SQPT] Order #: [id number] FUTURE CBC + DIFF [SQCBCDIF] Order #: [id number] FUTURE HEPATIC FUNCTION PNL [SQHFP] Order #: [id number] FUTURE US ABD RT UPPER QUADRANT [[id number]] Order #: [id number] FUTURE Prescriptions as of 07/16/2017 Sig: VITAMIN D-3 ORAL Take by mouth. TRESIBA FLEXTOUCH U-100 SUBCU* Inject 40 Units subcutaneousl* TRESIBA FLEXTOUCH U-200 INSUL* INJECT 50 UNIT(S) TWICE A DAY* FUROSEMIDE 40 MG TABLET Take 1 tablet by mouth once d* TOUJEO SOLOSTAR SUBCUTANEOUS Inject 50 Units subcutaneousl* RAMIPRIL 5 MG CAPSULE Take 5 mg by mouth once daily. PROMETHAZINE 25 MG TABLET Take 25 mg by mouth every 6 h* HYDROCODONE 5 MG-ACETAMINOPHE* Take 1 tablet by mouth every * LEVOTHYROXINE 137 MCG TABLET Take 137 mcg by mouth daily b* CLOPIDOGREL 75 MG TABLET Take 75 mg by mouth once rebecca* CUSTOM SLIDING SCALE ASPART I* Inject subcutaneously every * ASPIRIN 81 MG TABLET,DELAYED * Take 81 mg by mouth once rebecca* CARVEDILOL 12.5 MG TABLET Take 12.5 mg by mouth twice d* GABAPENTIN 300 MG CAPSULE Take 300 mg by mouth twice da* PANTOPRAZOLE 20 MG TABLET,DEL* Take 20 mg by mouth once rebecca* ATROVENT 18 MCG/ACTUATION AER* GLUCAGON EMERGENCY KIT (HUMAN* ACCU-CHEK DISHA PLUS TEST STR* USE 4 TIMES DAILY NOVOLOG FLEXPEN U-100 INSULIN* USE DIRECTED NEEDED SLI* ELBASVIR 50 MG-GRAZOPREVIR 10* Take 1 tablet by mouth once d* ATORVASTATIN 40 MG TABLET Take 40 mg by mouth once rebecca* FERROUS SULFATE 325 MG (65 MG* Take 325 mg by mouth daily wi* SPIRONOLACTONE 25 MG TABLET Take 25 mg by mouth once rebecca* Medication notes this encounter TRESIBA FLEXTOUCH U-200 INSULIN 200 UNIT/ML (3 ML) SUBCUTANEOUS PEN >> April Eid Ma 07/16/2017 1:43 PM >> APRIL EID MA WedJul 16, 2017 1:43 PM Received from: External Pharmacy GLUCAGON EMERGENCY KIT (HUMAN-RECOMB) 1 MG INJECTION >> April Eid Ma 07/16/2017 1:43 PM >> APRIL EID MA WedJul 16, 2017 1:43 PM Received from: External Pharmacy ACCU-CHEK DISHA PLUS TEST STRIPS >> April Eid Ma 07/16/2017 1:43 PM >> APRIL EID MA WedJul 16, 2017 1:43 PM Received from: External Pharmacy Received Sig: USE 4 TIMES DAILY NOVOLOG FLEXPEN U-100 INSULIN ASPART 100 UNIT/ML SUBCUTANEOUS >> April Eid Ma 07/16/2017 1:43 PM >> APRIL EID MA WedJul 16, 2017 1:43 PM Received from: External Pharmacy Problem List As Of Date 07/16/2017 Noted Resolved Hepatic cirrhosis due to chronic hepatitis C in*INVALID FOR* Morbid obesity (HCC) [E66.01] INVALID FOR* Portal hypertension with esophageal varices (HC*INVALID FOR* Thrombocytopenia (HCC) [D69.6] INVALID FOR* CKD (chronic kidney disease) stage 4, GFR 15-29*INVALID FOR* Encounter Status:Closed by ZAC PEARSON MD on 07/16/17 PROTIME Collected: 07/16/2017 Status: F Source: [place] 2:35 PM [facility] REPOSITORY TYPE CODE TESTS RESULT OUT OF RANGE REFERENCE UNITS LAB PSEC 9.7-13.0 sec PT Sec 11.4 LAB INR 0.9-1.3 PT INR 1.1 Result Comment: Vitamin K Antagonist (VKA) Therapeutic Range: INR 2 to 3 (Target INR of 2.5) Note: For patients treated with VKA drugs, such as warfarin, the [place] [employer] 2012 Guideline recommends a therapeutic INR range of 2 to 3 (target INR of 2.5). This recommendation includes high-risk patients with antiphospholipid syndrome with previous arterial or venous thromboembolism, current-generation mechanical or bioprosthetic aortic heart valve replacement. Note: Patients with mechanical aortic valve replacement and additional risk factors for thromboembolic events (atrial fibrillation, previous thromboembolism, LV dysfunction, hypercoagulable conditions) or an older generation mechanical AVR (i.e., ball in-Cage) or any mechanical MVR should have a INR therapeutic range of 2.5 to 3.5 (target INR of 3). Lana VIGIL, et al. Chest 2012, 141:7S-47S Joce SMITH, et al. [facility] 2017, 70: 252-289 Performed By: #### PT, CBCDIF, HFP, HCQPCR #### [facility] [address] [place], [place] [address] CBC AND DIFFERENTIAL Collected: 07/16/2017 Status: F Source: [place] 2:35 PM [facility] REPOSITORY TYPE CODE TESTS RESULT OUT OF REFERENCE UNITS RANGE LAB WBC 3.70-11.00 k/uL WBC 5.49 LAB RBC 3.90-5.20 m/uL Low RBC 2.85 LAB HGB 11.5-15.5 g/dL Low Hemoglobin 9.5 LAB HCT 36.0-46.0 % Low Hematocrit 29.5 LAB MCV 80.0-100.0 fL MCV High 103.5 LAB MCH 26.0-34.0 pG MCH 33.3 LAB MCHC 30.5-36.0 g/dL MCHC 32.2 LAB RDWCV 11.5-15.0 % RDW-CV 14.9 LAB PLTCT 150-400 k/uL Low Platelet Count 82 Result Comment: No clot detected. LAB MPV 9.0-12.7 fL MPV 11.2 LAB ANEUT % Neut% 70.0 LAB AANEUT 1.45-7.50 k/uL Abs Neut 3.84 LAB ALYMP % Lymph% 18.0 LAB AALYMP 1.00-4.00 k/uL Low Abs Lymph 0.99 LAB AMONO % Mobile% 5.3 LAB AAMONO <0.87 k/uL Abs Mobile 0.29 LAB AEOS % Eosin% 6.0 LAB AAEOS <0.46 k/uL Abs Eosin 0.33 LAB ABASO % Baso% 0.7 LAB AABASO <0.11 k/uL Abs Baso 0.04 LAB AUNRBC 0 /100 WBC NRBCs High 0.2 LAB ABNRBC <0.01 k/uL High Absolute nRBC 0.01 LAB DTYP DTYPE Auto Diff Performed By: #### PT, CBCDIF, HFP, HCQPCR #### [place] [id number] [place] [id number] HEPATIC FUNCTN PANEL Collected: 07/16/2017 Status: F Source: [place] 2:35 PM [facility] REPOSITORY TYPE CODE TESTS RESULT OUT OF REFERENCE UNITS RANGE LAB ALB 3.9-4.9 g/dL Low Albumin 3.7 LAB TBIL 0.2-1.3 mg/dL Bilirubin, Total 0.5 LAB CBIL <0.2 mg/dL Bilirubin,Conjuga <0.2 bhargav LAB ALKP 32-117 U/L Alkaline Phosphatase 111 LAB AST 13-35 U/L AST 20 LAB ALT 7-38 U/L ALT 10 LAB TP 6.3-8.0 g/dL Protein, Total 7.6 Performed By: #### PT, CBCDIF, HFP, HCQPCR #### [place] [id number] HEPATITIS C RNA Collected: 07/16/2017 Status: F Source: LOOMIS 2:35 [facility] REPOSITORY TYPE CODE TESTS RESULT OUT OF REFERENCE UNITS RANGE LAB HCQPCR IU/mL Hepatitis C RNA HCV RNA not detected by PCR. Result Comment: Reference Range: Negative for HCV RNA The Linear Range of this assay is 15 IU/mL to 100,000,000 IU/mL. Performed By: #### PT, CBCDIF, HFP, HCQPCR #### [facility] [employer] [address] [place] [address] PROGRESS Observed: 07/16/2017 Status: COMPLETED Source: [place] 2:16 PM [facility] REPOSITORY HNO ID: [id number] Author: Zac Pearson Service: (none) Author Type: Physician Type: Progress Notes Filed: 07/16/2017 4:20 PM Note Text: Follow Up Visit Medications: Current Outpatient Prescriptions: CALCIUM CARBONATE/VITAMIN D3 (VITAMIN D-3 ORAL) Take by mouth. INSULIN DEGLUDEC (TRESIBA FLEXTOUCH U-100 SUBCUTANEOUS) Inject 40 Units subcutaneously twice daily. TRESIBA FLEXTOUCH U-200 200 unit/mL (3 mL) injection INJECT 50 UNIT(S) TWICE A DAY BY SUBCUTANEOUS ROUTE FOR 30 DAYS. furosemide (LASIX) 40 mg tablet Take 1 tablet by mouth once daily. INSULIN GLARGINE,HUM.REC.ANLOG (TOUJEO SOLOSTAR SUBCUTANEOUS) Inject 50 Units subcutaneously twice daily. ramipril (ALTACE) 5 mg capsule Take 5 mg by mouth once daily. promethazine (PHENERGAN) 25 mg tablet Take 25 mg by mouth every 6 hours as needed. HYDROcodone-acetaminophen (NORCO) 5-325 mg per tablet Take 1 tablet by mouth every 6 hours as needed. levothyroxine (SYNTHROID) 137 mcg tablet Take 137 mcg by mouth daily before breakfast. clopidogrel (PLAVIX) 75 mg tablet Take 75 mg by mouth once daily. insulin aspart (NOVOLOG) 100 units/ml Inject subcutaneously every 6 hours. aspirin, enteric coated (ASPIRIN, ENTERIC COATED) 81 mg EC tablet Take 81 mg by mouth once daily. carvedilol (COREG) 12.5 mg tablet Take 12.5 mg by mouth twice daily with meals. gabapentin (NEURONTIN) 300 mg capsule Take 300 mg by mouth twice daily. pantoprazole DR (PROTONIX) 20 mg tablet Take 20 mg by mouth once daily. ATROVENT 18 MCG/ACTUATION AEROSOL INHALER GLUCAGON EMERGENCY KIT, HUMAN, 1 mg injection ACCU-CHEK DISHA PLUS TEST STRP test strip USE 4 TIMES DAILY NOVOLOG FLEXPEN U-100 INSULIN 100 unit/mL inpn USE DIRECTED NEEDED SLIDING SCALE elbasvir-grazoprevir (ZEPATIER) 50-100 mg tab Take 1 tablet by mouth once daily atorvastatin (LIPITOR) 40 mg tablet Take 40 mg by mouth once daily. ferrous sulfate (IRON) 325 mg (65 mg iron) tablet Take 325 mg by mouth daily with breakfast. spironolactone (ALDACTONE) 25 mg tablet Take 25 mg by mouth once daily. No current facility-administered medications for this visit. IMPRESSION: CIRRHOTIC LIVER MORPHOLOGY. NO FOCAL HEPATIC LESIONS. SPLENOMEGALY. + MADDI Burk (Yoly Saucedo ? 5:35 PM Note Called patient today and discussed her lab results that showed that she had end Rx response and advised to repeat labs in 3 mon on 04/05 that will further tell if she has achieved SVR and also told that her kidney functions are elevated and per patient she has a f/u appt with her patent legal assistant locally and told her that I will ask my corporate legal secretary to mail the lab results to patient and she voiced understanding. ? Yany, Please mail the lab results to patient. 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 Otherwise she is compensated with no ascites no encephalopathy and no jaundice. She has never had bleeding from esophageal varices per notes. Low GFR with history of hemodialysis from acute injury in the past now no longer needing hemodialysis. GFR remains at 30 or below (28 on recent testing). Metabolic syndrome.CAD on aspirin and Plavix. Discussed natural history, progression of Cirrhosis to decompensation with ascites, jaundice, encephalopathy, bleeding, cancer potential; risks of cancer and q 6 month ultrasound for surveillance were discussed. Discussed potential eradication of virus does not reverse or cure cirrhosis and she remains at risk for decompensation of liver disease and liver cancer, needs q 6 month ultrasound for life and q 6 months office visits with us for life. Already on coreg for BB ppx. EGD for prophylactic banding high risk as had CAD and need for ongoing plavix and aspirin. BB as prophylaxis evidence based and appropriate here. Discussed with pt, she is happy with this Colonoscopy with local GI 2017, she will f/u with him for interval one (his report indicates 2020 for next, 3 yr interval, she will call to confirm this) Blood work today Ultrasound and office visit in 6 months Discussed above in detail with pt and spouse Call if issues prior to next OV Zac Pearson MD US ABD SPLEEN -NB Observed: 07/16/2017 Status: F Source: [place] 10:57 AM [facility] REPOSITORY * * *Final Report* * * DATE OF EXAM: Jul 16 2017 10:57AM ABEL [id number] - US ABD SPLEEN -NB / PROCEDURE REASON: multiple diagnoses * * * * Physician Interpretation * * * * RIGHT UPPER QUADRANT AND SPLENIC ULTRASOUND HISTORY: Chronic viral hepatitis, cirrhosis. COMPARISON: Ultrasound 11/17/2016. TECHNIQUE: Sonography of the right upper quadrant and spleen were performed. Images were obtained and stored in a permanent archive. RESULT: Pancreas: The visualized pancreas is unremarkable. Portions obscured: Head and tail Lesions: None Liver: Echotexture: Coarse Echogenicity: Normal Surface contour: Nodular Lesions: None Biliary: Intrahepatic Biliary Dilation: Absent CBD: 0.6 cm, normal Gallbladder: Absent Kidneys: No hydronephrosis. Diffuse bilateral renal parenchymal thinning. 2.4 cm left interpolar renal cyst. Spleen: Size: 16.4 x 11.2 x 5.8 cm, enlarged. Echotexture: Normal. Lesions: None. Ascites: None. IMPRESSION: CIRRHOTIC LIVER MORPHOLOGY. NO FOCAL HEPATIC LESIONS. SPLENOMEGALY. Sample Coordinator: PSCKelley Transcribe Date/Time: Jul 16 2017 11:00A Dictated by : NIGEL AUGUST DO This examination was interpreted and the report reviewed and electronically signed by: NIGEL AUGUST DO on Jul 16 2017 11:23AM EST [id number] US ABD RIGHT UPPER Observed: 07/16/2017 Status: F Source: [facility] 10:57 AM [facility] REPOSITORY * * *Final Report* * * DATE OF EXAM: Jul 16 2017 10:57AM ABEL 1032 - US ABD RIGHT UPPER QUADRANT / PROCEDURE REASON: multiple diagnoses * * * * Physician Interpretation * * * * RIGHT UPPER QUADRANT AND SPLENIC ULTRASOUND HISTORY: Chronic viral hepatitis, cirrhosis. COMPARISON: Ultrasound 11/17/2016. TECHNIQUE: Sonography of the right upper quadrant and spleen were performed. Images were obtained and stored in a permanent archive. RESULT: Pancreas: The visualized pancreas is unremarkable. Portions obscured: Head and tail Lesions: None Liver: Echotexture: Coarse Echogenicity: Normal Surface contour: Nodular Lesions: None Biliary: Intrahepatic Biliary Dilation: Absent CBD: 0.6 cm, normal Gallbladder: Absent Kidneys: No hydronephrosis. Diffuse bilateral renal parenchymal thinning. 2.4 cm left interpolar renal cyst. Spleen: Size: 16.4 x 11.2 x 5.8 cm, enlarged. Echotexture: Normal. Lesions: None. Ascites: None. IMPRESSION: CIRRHOTIC LIVER MORPHOLOGY. NO FOCAL HEPATIC LESIONS. SPLENOMEGALY. Sample Coordinator: GISELLE Transcribe Date/Time: Jul 16 2017 11:00A Dictated by : NIGLE AUGUST DO This examination was interpreted and the report reviewed and electronically signed by: NIGEL AUGUST DO on Jul 16 2017 11:23AM EST [id number] .GFR Collected: 07/13/2017 Status: F Source: [facility] 4:13 PM [facility] REPOSITORY TYPE CODE TESTS RESULT OUT OF REFERENCE UNITS RANGE LAB GFRAA(LOINC ml/min/1.73 ) sqm GFR 31 Citizen Of [place] Result Comment: GFR Population mean for , Non- Americans Ages 20-29 = 116 mL/min/1.73 sq.m. Ages 30-39 = 107 mL/min/1.73 sq.m. Ages 40-49 = 99 mL/min/1.73 sq.m. Ages 50-59 = 93 mL/min/1.73 sq.m. Ages 60-69 = 85 mL/min/1.73 sq.m. Ages 70+ = 75 mL/min/1.73 sq.m. Chronic Kidney Disease: Less than 60 mL/min/1.73 square meters End Stage Renal Disease: Less than 15 mL/min/1.73 square meters LAB GFRNO(LOINC) ml/min/1.73sqm GFR Non- 26 Result Comment: GFR Population mean for , Non- Americans Ages 20-29 = 116 mL/min/1.73 sq.m. Ages 30-39 = 107 mL/min/1.73 sq.m. Ages 40-49 = 99 mL/min/1.73 sq.m. Ages 50-59 = 93 mL/min/1.73 sq.m. Ages 60-69 = 85 mL/min/1.73 sq.m. Ages 70+ = 75 mL/min/1.73 sq.m. Chronic Kidney Disease: Less than 60 mL/min/1.73 square meters End Stage Renal Disease: Less than 15 mL/min/1.73 square meters Performed By: #### GFR, CMP #### [id number] [place], [place] [address] #### VIDH, CPEP #### [address] [address] VIDH Collected: 07/13/2017 Status: F Source: [facility] 4:13 PM [facility] REPOSITORY TYPE CODE TESTS RESULT OUT OF RANGE REFERENCE UNITS LAB VIDH(LOINC) ng/mL Vit. D 9 25-Hydroxy Result Comment: Interpretive Values Based on Total 25(OH)D: Severe Deficiency <20 ng/mL Mild to Moderate Deficiency 20-30 ng/mL Optimum Levels 30-100 ng/mL Toxicity Possible >100 ng/mL Performed By: #### GFR, CMP #### [address] [address] #### VIDH, CPEP #### [address] [address] CMP Collected: 07/13/2017 Status: F Source: [facility] 4:13 PM [facility] REPOSITORY TYPE CODE TESTS RESULT OUT OF REFERENCE UNITS RANGE LAB 1547-9 80-115 mg/dL GLUCOSE High 141 LAB NA(LOINC) 136-146 mEq/L Sodium Level 137 LAB K(LOINC) 3.5-5.1 mEq/L Potassium Level 5.1 LAB CL(LOINC) 98-107 mEq/L Chloride 103 LAB CO2(LOINC) 23-31 mEq/L CO2 26 LAB EBAL(LOINC mEq/L ) Electrolyte Balance 8.0 LAB BUN(LOINC) 7.0-18.0 mg/dL BUN High 41.2 LAB CRE(LOINC) 0.6-1.2 mg/dL Creatinine High Lvl (s) 2.0 LAB BC(LOINC) 7-27 ratio BUN/Creatinine 21 Ratio LAB CA(LOINC) 8.4-10.2 mg/dL Calcium Lvl 9.0 LAB PROT(LOINC 6.0-8.5 G/dL ) Total Protein 7.8 LAB ALB(LOINC) 3.2-4.8 G/dL Albumin Level 3.7 LAB GLB(LOINC) 1.5-3.8 G/dL Globulin High 4.1 LAB AG(LOINC) 0.9-1.6 ratio A/G Ratio 0.9 LAB BILT(LOINC 0.2-1.0 mg/dL ) Bili Total 0.8 LAB AP(LOINC) 40-135 IU/L Alk Phos 98 LAB AST(LOINC) 10-40 IU/L AST/SGOT 18 LAB ALT(LOINC) 10-35 IU/L ALT/SGPT 11 Performed By: #### GFR, CMP #### [address] [place], [place] [address] #### VIDH, CPEP #### [address] [address] CPEP Collected: 07/13/2017 Status: F Source: [facility] 4:13 PM [facility] REPOSITORY TYPE CODE TESTS RESULT OUT OF RANGE REFERENCE UNITS LAB CPEP(LOINC) 1.0-7.6 ng/mL Low C-Peptide <0.1 Performed By: #### GFR, CMP #### [address] [address] #### VIDH, CPEP #### [address] [address] CBC Collected: 06/18/2017 Status: F Source: [facility] 2:39 PM [facility] REPOSITORY TYPE CODE TESTS RESULT OUT OF REFERENCE UNITS RANGE LAB WBC(LOINC) 4.50-10.80 10 3/mcL WBC 6.70 LAB RBCCT(LOINC 4.10-5.30 10 6/mcL ) Low RBC 3.17 LAB HGB(LOINC) 12.0-16.0 G/dL Low Hgb 10.5 LAB HCT(LOINC) 34.0-46.0 % Low Hct 31.1 LAB MCV(LOINC) 80.0-99.0 fL MCV 98.4 LAB MCH(LOINC) 27.0-33.0 pg High MCH 33.2 LAB MCHC(LOINC) 32.0-36.0 G/dL MCHC 33.7 LAB RDW(LOINC) 11.5-15.5 % High RDW 16.6 LAB PLT(LOINC) 150-450 10 3/mcL Low Platelet 101 LAB MPV(LOINC) 6.6-10.5 fL MPV 9.0 Performed By: #### CBC, ADIFF, ANEU, GFR, CMP #### [place] [address] .AUTO DIFF Collected: 06/18/2017 Status: F Source: [facility] 2:39 [facility] REPOSITORY TYPE CODE TESTS RESULT OUT OF REFERENCE UNITS RANGE LAB DENICE(LOINC) 50.0-75.0 % Neutrophil % 71.9 LAB LYM(LOINC) 20.0-40.0 % Low Lymphocyte % 17.6 LAB MON(LOINC) 2.0-13.0 % Monocyte % 5.4 LAB EO(LOINC) 0.0-6.0 % Eosinophil % 4.0 LAB BAS(LOINC) 0.0-2.5 % Basophil % 1.1 LAB ABLYM(LOIN 0.90-4.32 10 3/mcL C) Lymphocyte, 1.20 Absolute LAB JAMES(LOINC 0.09-1.40 10 3/mcL ) Monocyte, 0.40 Absolute LAB AEOS(LOINC 0.00-0.65 10 3/mcL ) Eosinophil, 0.30 Absolute LAB ABAS(LOINC 0.00-0.27 10 3/mcL ) Basophil, 0.10 Absolute Performed By: #### CBC, ADIFF, ANEU, GFR, CMP #### [place] [address] .NEUABS Collected: 06/18/2017 Status: F Source: [facility] 2:39 [facility] REPOSITORY TYPE CODE TESTS RESULT OUT OF REFERENCE UNITS RANGE LAB ANEU(LOINC) 2.25-8.10 10 3/mcL Neutrophil, 4.80 Absolute Performed By: #### CBC, ADIFF, ANEU, GFR, CMP #### [place] [address] .GFR Collected: 06/18/2017 Status: F Source: [facility] 2:39 [facility] REPOSITORY TYPE CODE TESTS RESULT OUT OF REFERENCE UNITS RANGE LAB GFRAA(LOINC ml/min/1.73 ) sqm GFR 27 Citizen [place] Result Comment: GFR Population mean for , Non- Americans Ages 20-29 = 116 mL/min/1.73 sq.m. Ages 30-39 = 107 mL/min/1.73 sq.m. Ages 40-49 = 99 mL/min/1.73 sq.m. Ages 50-59 = 93 mL/min/1.73 sq.m. Ages 60-69 = 85 mL/min/1.73 sq.m. Ages 70+ = 75 mL/min/1.73 sq.m. Chronic Kidney Disease: Less than 60 mL/min/1.73 square meters End Stage Renal Disease: Less than 15 mL/min/1.73 square meters LAB GFRNO(LOINC) ml/min/1.73sqm GFR Non- 23 Result Comment: GFR Population mean for , Non- Americans Ages 20-29 = 116 mL/min/1.73 sq.m. Ages 30-39 = 107 mL/min/1.73 sq.m. Ages 40-49 = 99 mL/min/1.73 sq.m. Ages 50-59 = 93 mL/min/1.73 sq.m. Ages 60-69 = 85 mL/min/1.73 sq.m. Ages 70+ = 75 mL/min/1.73 sq.m. Chronic Kidney Disease: Less than 60 mL/min/1.73 square meters End Stage Renal Disease: Less than 15 mL/min/1.73 square meters Performed By: #### CBC, ADIFF, ANEU, GFR, CMP #### [place] [address] CMP Collected: 06/18/2017 Status: F Source: [facility] 2:39 PM [facility] REPOSITORY TYPE CODE TESTS RESULT OUT OF REFERENCE UNITS RANGE LAB GLU(LOINC) 82-115 mg/dL Glucose High Level 269 LAB NA(LOINC) 136-145 mEq/L Sodium Level 141 LAB K(LOINC) 3.5-5.0 mEq/L Potassium Level 4.7 LAB CL(LOINC) 98-110 mEq/L Chloride 103 LAB CO2(LOINC) 22-32 mEq/L CO2 29 LAB EBAL(LOINC 4.0-15.0 mEq/L ) Electrolyte Balance 9.0 LAB BUN(LOINC) 8.0-22.0 mg/dL BUN High 41.0 LAB CRE(LOINC) 0.50-1.20 mg/dL Creatinine High Lvl (s) 2.18 LAB BC(LOINC) 10.0-22.0 ratio BUN/Creatinine 18.8 Ratio LAB CA(LOINC) 8.4-10.1 mg/dL Calcium Lvl 8.9 LAB PROT(LOINC 6.0-8.5 G/dL ) Total Protein 7.4 LAB ALB(LOINC) 3.2-4.8 G/dL Albumin Level 3.4 LAB GLB(LOINC) 1.5-3.8 G/dL Globulin High 4.0 LAB AG(LOINC) 0.9-1.6 ratio Low A/G Ratio 0.8 LAB BILT(LOINC 0.2-1.2 mg/dL ) Bili Total 1.0 LAB AP(LOINC) 38-126 U/L Alk Phos 118 LAB AST(LOINC) 8-34 U/L AST/SGOT 20 LAB ALT(LOINC) 10-49 U/L ALT/SGPT 15 Performed By: #### CBC, ADIFF, ANEU, GFR, CMP #### [address] [address] BMP Collected: 06/09/2017 Status: F Source: [facility] 11:30 AM [facility] REPOSITORY TYPE CODE TESTS RESULT OUT OF REFERENCE UNITS RANGE LAB 1547-9 80-115 mg/dL GLUCOSE High 356 LAB NA(LOINC) 136-146 mEq/L Sodium Level 137 LAB K(LOINC) 3.5-5.1 mEq/L Potassium High Level 5.5 LAB CL(LOINC) 98-107 mEq/L Chloride 102 LAB CO2(LOINC) 23-31 mEq/L CO2 29 LAB EBAL(LOINC mEq/L ) Electrolyte Balance 6.0 LAB BUN(LOINC) 7.0-18.0 mg/dL BUN High 47.9 LAB CRE(LOINC) 0.6-1.2 mg/dL Creatinine High Lvl (s) 2.2 LAB BC(LOINC) 7-27 ratio BUN/Creatinine 22 Ratio LAB CA(LOINC) 8.4-10.2 mg/dL Calcium Lvl 8.5 Performed By: #### BMP, RFP, GFR #### [address] [address] RFP Collected: 06/09/2017 Status: F Source: [facility] 11:30 AM [facility] REPOSITORY TYPE CODE TESTS RESULT OUT OF REFERENCE UNITS RANGE LAB 1547-9 80-115 mg/dL GLUCOSE High 356 LAB NA(LOINC) 136-146 mEq/L Sodium Level 137 LAB K(LOINC) 3.5-5.1 mEq/L Potassium High Level 5.5 LAB CL(LOINC) 98-107 mEq/L Chloride 102 LAB CO2(LOINC) 23-31 mEq/L CO2 29 LAB EBAL(LOINC mEq/L ) Electrolyte Balance 6.0 LAB BUN(LOINC) 7.0-18.0 mg/dL BUN High 47.9 LAB CRE(LOINC) 0.6-1.2 mg/dL Creatinine High Lvl (s) 2.2 LAB BC(LOINC) 7-27 ratio BUN/Creatinine 22 Ratio LAB CA(LOINC) 8.4-10.2 mg/dL Calcium Lvl 8.5 LAB PHOS(LOINC 2.3-4.1 mg/dL ) Phosphorus 3.8 LAB ALB(LOINC) 3.4-4.8 G/dL Albumin Level 3.4 Performed By: #### BMP, RFP, GFR #### [place] [address] .GFR Collected: 06/09/2017 Status: F Source: [facility] [employer] 11:30 AM [facility] REPOSITORY TYPE CODE TESTS RESULT OUT OF REFERENCE UNITS RANGE LAB GFRAA(LOINC ml/min/1.73 ) sqm GFR 27 Citizen [place] Result Comment: GFR Population mean for , Non- Americans Ages 20-29 = 116 mL/min/1.73 sq.m. Ages 30-39 = 107 mL/min/1.73 sq.m. Ages 40-49 = 99 mL/min/1.73 sq.m. Ages 50-59 = 93 mL/min/1.73 sq.m. Ages 60-69 = 85 mL/min/1.73 sq.m. Ages 70+ = 75 mL/min/1.73 sq.m. Chronic Kidney Disease: Less than 60 mL/min/1.73 square meters End Stage Renal Disease: Less than 15 mL/min/1.73 square meters LAB GFRNO(LOINC) ml/min/1.73sqm GFR Non- 23 Result Comment: GFR Population mean for , Non- Americans Ages 20-29 = 116 mL/min/1.73 sq.m. Ages 30-39 = 107 mL/min/1.73 sq.m. Ages 40-49 = 99 mL/min/1.73 sq.m. Ages 50-59 = 93 mL/min/1.73 sq.m. Ages 60-69 = 85 mL/min/1.73 sq.m. Ages 70+ = 75 mL/min/1.73 sq.m. Chronic Kidney Disease: Less than 60 mL/min/1.73 square meters End Stage Renal Disease: Less than 15 mL/min/1.73 square meters Performed By: #### BMP, RFP, GFR #### [address] [place], [place] [address] CBC Collected: 06/07/2017 Status: F Source: [facility] 5:50 AM [facility] REPOSITORY TYPE CODE TESTS RESULT OUT OF REFERENCE UNITS RANGE LAB WBC(LOINC) 4.50-10.80 10 3/mcL WBC 4.80 LAB RBCCT(LOINC 4.10-5.30 10 6/mcL ) Low RBC 3.01 LAB HGB(LOINC) 12.0-16.0 G/dL Low Hgb 9.6 LAB HCT(LOINC) 34.0-46.0 % Low Hct 28.8 LAB MCV(LOINC) 80.0-99.0 fL MCV 95.7 LAB MCH(LOINC) 27.0-33.0 pg MCH 31.9 LAB MCHC(LOINC) 32.0-36.0 G/dL MCHC 33.4 LAB RDW(LOINC) 11.5-15.5 % High RDW 17.6 LAB PLT(LOINC) 150-450 10 3/mcL Low Platelet 88 LAB MPV(LOINC) 6.6-10.5 fL MPV 8.9 Performed By: #### CBC, ADIFF, ANEU, BMP, GFR #### [address] [address] .AUTO DIFF Collected: 06/07/2017 Status: F Source: [facility] 5:50 AM [facility] REPOSITORY TYPE CODE TESTS RESULT OUT OF REFERENCE UNITS RANGE LAB DENICE(LOINC) 50.0-75.0 % High Neutrophil % 79.8 LAB LYM(LOINC) 20.0-40.0 % Low Lymphocyte % 9.4 LAB MON(LOINC) 2.0-13.0 % Monocyte % 7.5 LAB EO(LOINC) 0.0-6.0 % Eosinophil % 2.7 LAB BAS(LOINC) 0.0-2.5 % Basophil % 0.6 LAB ABLYM(LOIN 0.90-4.32 10 3/mcL C) Low Lymphocyte, 0.40 Absolute LAB JAMES(LOINC 0.09-1.40 10 3/mcL ) Monocyte, 0.40 Absolute LAB AEOS(LOINC 0.00-0.65 10 3/mcL ) Eosinophil, 0.10 Absolute LAB ABAS(LOINC 0.00-0.27 10 3/mcL ) Basophil, 0.00 Absolute Performed By: #### CBC, ADIFF, ANEU, BMP, GFR #### [place] [address] .NEUABS Collected: 06/07/2017 Status: F Source: [facility] 5:50 AM [facility] REPOSITORY TYPE CODE TESTS RESULT OUT OF REFERENCE UNITS RANGE LAB ANEU(LOINC) 2.25-8.10 10 3/mcL Neutrophil, 3.80 Absolute Performed By: #### CBC, ADIFF, ANEU, BMP, GFR #### [place] [address] BMP Collected: 06/07/2017 Status: F Source: [facility] 5:50 AM [facility] REPOSITORY TYPE CODE TESTS RESULT OUT OF REFERENCE UNITS RANGE LAB GLU(LOINC) 82-115 mg/dL Glucose Level 109 LAB NA(LOINC) 136-145 mEq/L Sodium Level 140 LAB K(LOINC) 3.5-5.0 mEq/L Potassium Level 5.0 LAB CL(LOINC) 98-110 mEq/L Chloride 107 LAB CO2(LOINC) 22-32 mEq/L CO2 24 LAB EBAL(LOINC 4.0-15.0 mEq/L ) Electrolyte Balance 9.0 LAB BUN(LOINC) 8.0-22.0 mg/dL BUN High 64.0 LAB CRE(LOINC) 0.50-1.20 mg/dL Creatinine High Lvl (s) 2.79 LAB BC(LOINC) 10.0-22.0 ratio High BUN/Creatinine 22.9 Ratio LAB CA(LOINC) 8.4-10.1 mg/dL Calcium Lvl 8.5 Performed By: #### CBC, ADIFF, ANEU, BMP, GFR #### [address] [address] .GFR Collected: 06/07/2017 Status: F Source: [facility] 5:50 AM [facility] REPOSITORY TYPE CODE TESTS RESULT OUT OF REFERENCE UNITS RANGE LAB GFRAA(LOINC ml/min/1.73 ) sqm GFR 21 Citizen Of [place] Result Comment: GFR Population mean for , Non- Americans Ages 20-29 = 116 mL/min/1.73 sq.m. Ages 30-39 = 107 mL/min/1.73 sq.m. Ages 40-49 = 99 mL/min/1.73 sq.m. Ages 50-59 = 93 mL/min/1.73 sq.m. Ages 60-69 = 85 mL/min/1.73 sq.m. Ages 70+ = 75 mL/min/1.73 sq.m. Chronic Kidney Disease: Less than 60 mL/min/1.73 square meters End Stage Renal Disease: Less than 15 mL/min/1.73 square meters LAB GFRNO(LOINC) ml/min/1.73sqm GFR Non- 17 Result Comment: GFR Population mean for , Non- Americans Ages 20-29 = 116 mL/min/1.73 sq.m. Ages 30-39 = 107 mL/min/1.73 sq.m. Ages 40-49 = 99 mL/min/1.73 sq.m. Ages 50-59 = 93 mL/min/1.73 sq.m. Ages 60-69 = 85 mL/min/1.73 sq.m. Ages 70+ = 75 mL/min/1.73 sq.m. Chronic Kidney Disease: Less than 60 mL/min/1.73 square meters End Stage Renal Disease: Less than 15 mL/min/1.73 square meters Performed By: #### GIOVANNI, ADIFF, ANEU, BMP, GFR #### [address] [address] BMP Collected: 06/06/2017 Status: F Source: [facility] 5:08 AM [facility] REPOSITORY TYPE CODE TESTS RESULT OUT OF REFERENCE UNITS RANGE LAB GLU(LOINC) 82-115 mg/dL Glucose High Level 195 LAB NA(LOINC) 136-145 mEq/L Sodium Level 136 LAB K(LOINC) 3.5-5.0 mEq/L Potassium Level 4.7 LAB CL(LOINC) 98-110 mEq/L Chloride 104 LAB CO2(LOINC) 22-32 mEq/L CO2 23 LAB EBAL(LOINC 4.0-15.0 mEq/L ) Electrolyte Balance 9.0 LAB BUN(LOINC) 8.0-22.0 mg/dL BUN High 69.0 LAB CRE(LOINC) 0.50-1.20 mg/dL Creatinine High Lvl (s) 3.47 LAB BC(LOINC) 10.0-22.0 ratio BUN/Creatinine 19.9 Ratio LAB CA(LOINC) 8.4-10.1 mg/dL Calcium Lvl 8.5 Performed By: #### BMP, GFR, CBC, ADIFF, ANEU #### [place] [address] .GFR Collected: 06/06/2017 Status: F Source: [facility] 5:08 AM [facility] REPOSITORY TYPE CODE TESTS RESULT OUT OF REFERENCE UNITS RANGE LAB GFRAA(LOINC ml/min/1.73 ) sqm GFR 16 Citizen Of [place] Result Comment: GFR Population mean for , Non- Americans Ages 20-29 = 116 mL/min/1.73 sq.m. Ages 30-39 = 107 mL/min/1.73 sq.m. Ages 40-49 = 99 mL/min/1.73 sq.m. Ages 50-59 = 93 mL/min/1.73 sq.m. Ages 60-69 = 85 mL/min/1.73 sq.m. Ages 70+ = 75 mL/min/1.73 sq.m. Chronic Kidney Disease: Less than 60 mL/min/1.73 square meters End Stage Renal Disease: Less than 15 mL/min/1.73 square meters LAB GFRNO(LOINC) ml/min/1.73sqm GFR Non- 13 Result Comment: GFR Population mean for , Non- Americans Ages 20-29 = 116 mL/min/1.73 sq.m. Ages 30-39 = 107 mL/min/1.73 sq.m. Ages 40-49 = 99 mL/min/1.73 sq.m. Ages 50-59 = 93 mL/min/1.73 sq.m. Ages 60-69 = 85 mL/min/1.73 sq.m. Ages 70+ = 75 mL/min/1.73 sq.m. Chronic Kidney Disease: Less than 60 mL/min/1.73 square meters End Stage Renal Disease: Less than 15 mL/min/1.73 square meters Performed By: #### MANJU, GFR, CBC, ADIFF, ANEU #### [address] [id number] CBC Collected: 06/06/2017 Status: F Source: [facility] 5:08 AM [facility] REPOSITORY TYPE CODE TESTS RESULT OUT OF REFERENCE UNITS RANGE LAB WBC(LOINC) 4.50-10.80 10 3/mcL WBC 5.10 LAB RBCCT(LOINC 4.10-5.30 10 6/mcL ) Low RBC 2.86 LAB HGB(LOINC) 12.0-16.0 G/dL Low Hgb 9.4 LAB HCT(LOINC) 34.0-46.0 % Low Hct 27.3 LAB MCV(LOINC) 80.0-99.0 fL MCV 95.2 LAB MCH(LOINC) 27.0-33.0 pg MCH 32.7 LAB MCHC(LOINC) 32.0-36.0 G/dL MCHC 34.4 LAB RDW(LOINC) 11.5-15.5 % High RDW 17.3 LAB PLT(LOINC) 150-450 10 3/mcL Low Platelet 79 LAB MPV(LOINC) 6.6-10.5 fL MPV 9.6 Performed By: #### MANJU, GFR, CBC, ADIFF, ANEU #### [address] [id number] .AUTO DIFF Collected: 06/06/2017 Status: F Source: [facility] 5:08 AM [facility] REPOSITORY TYPE CODE TESTS RESULT OUT OF REFERENCE UNITS RANGE LAB DENICE(LOINC) 50.0-75.0 % High Neutrophil % 75.9 LAB LYM(LOINC) 20.0-40.0 % Low Lymphocyte % 10.7 LAB MON(LOINC) 2.0-13.0 % Monocyte % 8.5 LAB EO(LOINC) 0.0-6.0 % Eosinophil % 4.0 LAB BAS(LOINC) 0.0-2.5 % Basophil % 0.9 LAB ABLYM(LOIN 0.90-4.32 10 3/mcL C) Low Lymphocyte, 0.50 Absolute LAB JAMES(LOINC 0.09-1.40 10 3/mcL ) Monocyte, 0.40 Absolute LAB AEOS(LOINC 0.00-0.65 10 3/mcL ) Eosinophil, 0.20 Absolute LAB ABAS(LOINC 0.00-0.27 10 3/mcL ) Basophil, 0.00 Absolute Performed By: #### BMP, GFR, CBC, ADIFF, ANEU #### [place] [address] .NEUABS Collected: 06/06/2017 Status: F Source: [facility] 5:08 AM [facility] REPOSITORY TYPE CODE TESTS RESULT OUT OF REFERENCE UNITS RANGE LAB ANEU(LOINC) 2.25-8.10 10 3/mcL Neutrophil, 3.90 Absolute Performed By: #### BMP, GFR, CBC, ADIFF, ANEU #### [place] [address] RBC (PRODUCT) Collected: 06/05/2017 Status: F Source: [facility] 4:41 PM [facility] REPOSITORY TYPE CODE TESTS RESULT OUT OF REFERENCE UNITS RANGE LAB RBCPR(LOINC ) RBC Product RBC Ready Ready for Pickup Performed By: #### RBCP #### [place] [address] TABO Collected: 06/05/2017 Status: F Source: [facility] 11:00 AM [facility] REPOSITORY TYPE CODE TESTS RESULT OUT OF RANGE REFERENCE UNITS LAB ABORH(LOINC ) Unknown ABO/Rh O POS Interp Performed By: #### ABORH, ANTIS, AUTC, ANTID #### [place] [address] TABS Collected: 06/05/2017 Status: F Source: [facility] 11:00 AM [facility] REPOSITORY TYPE CODE TESTS RESULT OUT OF REFERENCE UNITS RANGE LAB ANST(LOINC ) Antibody Positive ABSC Screen Tango Performed By: #### ABORH, ANTIS, AUTC, ANTID #### [place] [address] AUTO Collected: 06/05/2017 Status: F Source: [facility] 11:00 AM [facility] REPOSITORY Order Comment: Ordered by Discern Expert TYPE CODE TESTS RESULT OUT OF REFERENCE UNITS RANGE LAB AUTO(LOINC ) Auto Control Negative Performed By: #### ABORH, ANTIS, AUTC, ANTID #### [address] [address] ABID Collected: 06/05/2017 Status: P Source: [facility] 11:00 AM [facility] REPOSITORY Order Comment: Ordered by Discern Expert TYPE CODE TESTS RESULT OUT OF RANGE REFERENCE UNITS LAB ANTID(LOIN C) Unknown Antibody ID Anti-E Performed By: #### ABORH, ANTIS, AUTC, ANTID #### [address] [address] CBC Collected: 06/05/2017 Status: F Source: [facility] 4:55 AM [facility] REPOSITORY TYPE CODE TESTS RESULT OUT OF REFERENCE UNITS RANGE LAB WBC(LOINC) 4.50-10.80 10 3/mcL Low WBC 3.60 LAB RBCCT(LOINC 4.10-5.30 10 6/mcL ) Low RBC 2.28 LAB HGB(LOINC) 12.0-16.0 G/dL Low Hgb 7.6 LAB HCT(LOINC) 34.0-46.0 % Low Hct 22.3 LAB MCV(LOINC) 80.0-99.0 fL MCV 97.6 LAB MCH(LOINC) 27.0-33.0 pg High MCH 33.1 LAB MCHC(LOINC) 32.0-36.0 G/dL MCHC 33.9 LAB RDW(LOINC) 11.5-15.5 % High RDW 16.4 LAB PLT(LOINC) 150-450 10 3/mcL Low Platelet 64 LAB MPV(LOINC) 6.6-10.5 fL MPV 9.5 Performed By: #### CBC, ADIFF, ANEU, BMP, GFR #### [address] [address] .AUTO DIFF Collected: 06/05/2017 Status: F Source: [facility] 4:55 AM [facility] REPOSITORY TYPE CODE TESTS RESULT OUT OF REFERENCE UNITS RANGE LAB DENICE(LOINC) 50.0-75.0 % Neutrophil % 68.9 LAB LYM(LOINC) 20.0-40.0 % Low Lymphocyte % 15.2 LAB MON(LOINC) 2.0-13.0 % Monocyte % 9.1 LAB EO(LOINC) 0.0-6.0 % Eosinophil % 6.0 LAB BAS(LOINC) 0.0-2.5 % Basophil % 0.8 LAB ABLYM(LOIN 0.90-4.32 10 3/mcL C) Low Lymphocyte, 0.60 Absolute LAB JAMES(LOINC 0.09-1.40 10 3/mcL ) Monocyte, 0.30 Absolute LAB AEOS(LOINC 0.00-0.65 10 3/mcL ) Eosinophil, 0.20 Absolute LAB ABAS(LOINC 0.00-0.27 10 3/mcL ) Basophil, 0.00 Absolute Performed By: #### CBC, ADIFF, ANEU, BMP, GFR #### [place] [address] .NEUABS Collected: 06/05/2017 Status: F Source: [facility] 4:55 AM [facility] REPOSITORY TYPE CODE TESTS RESULT OUT OF REFERENCE UNITS RANGE LAB ANEU(LOINC) 2.25-8.10 10 3/mcL Neutrophil, 2.50 Absolute Performed By: #### CBC, ADIFF, ANEU, BMP, GFR #### [place] [address] BMP Collected: 06/05/2017 Status: F Source: [facility] 4:55 AM [facility] REPOSITORY TYPE CODE TESTS RESULT OUT OF REFERENCE UNITS RANGE LAB GLU(LOINC) 82-115 mg/dL Glucose High Level 135 LAB NA(LOINC) 136-145 mEq/L Sodium Level 136 LAB K(LOINC) 3.5-5.0 mEq/L Potassium Level 4.6 LAB CL(LOINC) 98-110 mEq/L Chloride 104 LAB CO2(LOINC) 22-32 mEq/L CO2 25 LAB EBAL(LOINC 4.0-15.0 mEq/L ) Electrolyte Balance 7.0 LAB BUN(LOINC) 8.0-22.0 mg/dL BUN High 67.0 LAB CRE(LOINC) 0.50-1.20 mg/dL Creatinine High Lvl (s) 3.75 LAB BC(LOINC) 10.0-22.0 ratio BUN/Creatinine 17.9 Ratio LAB CA(LOINC) 8.4-10.1 mg/dL Calcium Lvl 8.4 Performed By: #### CBC, ADIFF, ANEU, BMP, GFR #### [address] [address] .GFR Collected: 06/05/2017 Status: F Source: [facility] 4:55 AM [facility] REPOSITORY TYPE CODE TESTS RESULT OUT OF REFERENCE UNITS RANGE LAB GFRAA(LOINC ml/min/1.73 ) sqm GFR 15 Citizen Of [place] Result Comment: GFR Population mean for , Non- Americans Ages 20-29 = 116 mL/min/1.73 sq.m. Ages 30-39 = 107 mL/min/1.73 sq.m. Ages 40-49 = 99 mL/min/1.73 sq.m. Ages 50-59 = 93 mL/min/1.73 sq.m. Ages 60-69 = 85 mL/min/1.73 sq.m. Ages 70+ = 75 mL/min/1.73 sq.m. Chronic Kidney Disease: Less than 60 mL/min/1.73 square meters End Stage Renal Disease: Less than 15 mL/min/1.73 square meters LAB GFRNO(LOINC) ml/min/1.73sqm GFR Non- 12 Result Comment: GFR Population mean for , Non- Americans Ages 20-29 = 116 mL/min/1.73 sq.m. Ages 30-39 = 107 mL/min/1.73 sq.m. Ages 40-49 = 99 mL/min/1.73 sq.m. Ages 50-59 = 93 mL/min/1.73 sq.m. Ages 60-69 = 85 mL/min/1.73 sq.m. Ages 70+ = 75 mL/min/1.73 sq.m. Chronic Kidney Disease: Less than 60 mL/min/1.73 square meters End Stage Renal Disease: Less than 15 mL/min/1.73 square meters Performed By: #### CBC, ADIFF, ANEU, BMP, GFR #### [address] [address] CBC Collected: 06/04/2017 Status: F Source: [facility] 6:39 AM [facility] REPOSITORY TYPE CODE TESTS RESULT OUT OF REFERENCE UNITS RANGE LAB WBC(LOINC) 4.50-10.80 10 3/mcL Low WBC 4.30 LAB RBCCT(LOINC 4.10-5.30 10 6/mcL ) Low RBC 2.21 LAB HGB(LOINC) 12.0-16.0 G/dL Low Hgb 7.4 LAB HCT(LOINC) 34.0-46.0 % Low Hct 21.7 LAB MCV(LOINC) 80.0-99.0 fL MCV 98.1 LAB MCH(LOINC) 27.0-33.0 pg High MCH 33.5 LAB MCHC(LOINC) 32.0-36.0 G/dL MCHC 34.1 LAB RDW(LOINC) 11.5-15.5 % High RDW 16.5 LAB PLT(LOINC) 150-450 10 3/mcL Low Platelet 59 LAB MPV(LOINC) 6.6-10.5 fL MPV 9.8 Performed By: #### CBC, ADIFF, ANEU, RFP, GFR, CMP #### [address] [address] .AUTO DIFF Collected: 06/04/2017 Status: F Source: [facility] 6:39 AM [facility] REPOSITORY TYPE CODE TESTS RESULT OUT OF REFERENCE UNITS RANGE LAB DENICE(LOINC) 50.0-75.0 % Neutrophil % 74.3 LAB LYM(LOINC) 20.0-40.0 % Low Lymphocyte % 10.6 LAB MON(LOINC) 2.0-13.0 % Monocyte % 9.0 LAB EO(LOINC) 0.0-6.0 % Eosinophil % 5.4 LAB BAS(LOINC) 0.0-2.5 % Basophil % 0.7 LAB ABLYM(LOIN 0.90-4.32 10 3/mcL C) Low Lymphocyte, 0.50 Absolute LAB JAMES(LOINC 0.09-1.40 10 3/mcL ) Monocyte, 0.40 Absolute LAB AEOS(LOINC 0.00-0.65 10 3/mcL ) Eosinophil, 0.20 Absolute LAB ABAS(LOINC 0.00-0.27 10 3/mcL ) Basophil, 0.00 Absolute Performed By: #### CBC, ADIFF, ANEU, RFP, GFR, CMP #### [address] [address] .NEUABS Collected: 06/04/2017 Status: F Source: [facility] 6:39 AM [facility] REPOSITORY TYPE CODE TESTS RESULT OUT OF REFERENCE UNITS RANGE LAB ANEU(LOINC) 2.25-8.10 10 3/mcL Neutrophil, 3.20 Absolute Performed By: #### CBC, ADIFF, ANEU, RFP, GFR, CMP #### [address] [address] RFP Collected: 06/04/2017 Status: F Source: [facility] 6:39 AM [facility] REPOSITORY TYPE CODE TESTS RESULT OUT OF REFERENCE UNITS RANGE LAB GLU(LOINC) 82-115 mg/dL Glucose High Level 130 LAB NA(LOINC) 136-145 mEq/L Sodium Level 136 LAB K(LOINC) 3.5-5.0 mEq/L Potassium Level 4.3 LAB CL(LOINC) 98-110 mEq/L Chloride 104 LAB CO2(LOINC) 22-32 mEq/L CO2 24 LAB EBAL(LOINC 4.0-15.0 mEq/L ) Electrolyte Balance 8.0 LAB BUN(LOINC) 8.0-22.0 mg/dL BUN High 61.0 LAB CRE(LOINC) 0.50-1.20 mg/dL Creatinine High Lvl (s) 3.42 LAB BC(LOINC) 10.0-22.0 ratio BUN/Creatinine 17.8 Ratio LAB CA(LOINC) 8.4-10.1 mg/dL Low Calcium Lvl 8.3 LAB PHOS(LOINC 2.5-4.5 mg/dL ) Phosphorus 4.2 LAB ALB(LOINC) 3.2-4.8 G/dL Low Albumin Level 2.5 Performed By: #### CBC, ADIFF, ANEU, RFP, GFR, CMP #### [address] [address] .GFR Collected: 06/04/2017 Status: F Source: [facility] 6:39 AM [facility] REPOSITORY TYPE CODE TESTS RESULT OUT OF REFERENCE UNITS RANGE LAB GFRAA(LOINC ml/min/1.73 ) sqm GFR 16 Citizen Of [place] Result Comment: GFR Population mean for , Non- Americans Ages 20-29 = 116 mL/min/1.73 sq.m. Ages 30-39 = 107 mL/min/1.73 sq.m. Ages 40-49 = 99 mL/min/1.73 sq.m. Ages 50-59 = 93 mL/min/1.73 sq.m. Ages 60-69 = 85 mL/min/1.73 sq.m. Ages 70+ = 75 mL/min/1.73 sq.m. Chronic Kidney Disease: Less than 60 mL/min/1.73 square meters End Stage Renal Disease: Less than 15 mL/min/1.73 square meters LAB GFRNO(LOINC) ml/min/1.73sqm GFR Non- 13 Result Comment: GFR Population mean for , Non- Americans Ages 20-29 = 116 mL/min/1.73 sq.m. Ages 30-39 = 107 mL/min/1.73 sq.m. Ages 40-49 = 99 mL/min/1.73 sq.m. Ages 50-59 = 93 mL/min/1.73 sq.m. Ages 60-69 = 85 mL/min/1.73 sq.m. Ages 70+ = 75 mL/min/1.73 sq.m. Chronic Kidney Disease: Less than 60 mL/min/1.73 square meters End Stage Renal Disease: Less than 15 mL/min/1.73 square meters Performed By: #### CBC, ADIFF, ANEU, RFP, GFR, CMP #### [place] [address] CMP Collected: 06/04/2017 Status: F Source: [facility] 6:39 AM [facility] REPOSIT[facility] TYPE CODE TESTS RESULT OUT OF REFERENCE UNITS RANGE LAB GLU(LOINC) 82-115 mg/dL Glucose High Level 130 LAB NA(LOINC) 136-145 mEq/L Sodium Level 136 LAB K(LOINC) 3.5-5.0 mEq/L Potassium Level 4.3 LAB CL(LOINC) 98-110 mEq/L Chloride 104 LAB CO2(LOINC) 22-32 mEq/L CO2 24 LAB EBAL(LOINC 4.0-15.0 mEq/L ) Electrolyte Balance 8.0 LAB BUN(LOINC) 8.0-22.0 mg/dL BUN High 61.0 LAB CRE(LOINC) 0.50-1.20 mg/dL Creatinine High Lvl (s) 3.42 LAB BC(LOINC) 10.0-22.0 ratio BUN/Creatinine 17.8 Ratio LAB CA(LOINC) 8.4-10.1 mg/dL Low Calcium Lvl 8.3 LAB PROT(LOINC 6.0-8.5 G/dL ) Total Protein 6.0 LAB ALB(LOINC) 3.2-4.8 G/dL Low Albumin Level 2.5 LAB GLB(LOINC) 1.5-3.8 G/dL Globulin 3.5 LAB AG(LOINC) 0.9-1.6 ratio Low A/G Ratio 0.7 LAB BILT(LOINC 0.2-1.2 mg/dL ) Bili Total 0.8 LAB AP(LOINC) 38-126 U/L Alk Phos 77 LAB AST(LOINC) 8-34 U/L AST/SGOT 14 LAB ALT(INC) 10-49 U/L ALT/SGPT 13 Performed By: #### CBC, ADIFF, ANEU, RFP, GFR, CMP #### [address] [address] AGTY Collected: 06/03/2017 Status: P Source: [facility] 8:33 AM [facility] REPOSITORY TYPE CODE TESTS RESULT OUT OF RANGE REFERENCE UNITS LAB [id number] 23(LOINC) RT 0 LAB AGTY([facility] ) Unknown Antigen Type E- Performed By: #### AGTY #### [place] [address] CBC Collected: 06/03/2017 Status: F Source: [facility] 5:48 AM [facility] REPOSITORY TYPE CODE TESTS RESULT OUT OF REFERENCE UNITS RANGE LAB WBC(LOINC) 4.50-10.80 10 3/mcL WBC 4.60 LAB RBCCT(LOINC 4.10-5.30 10 6/mcL ) Low RBC 2.24 LAB HGB(LOINC) 12.0-16.0 G/dL Low Hgb 7.4 LAB HCT(LOINC) 34.0-46.0 % Low Hct 22.4 LAB MCV(LOINC) 80.0-99.0 fL High MCV 99.7 LAB MCH(LOINC) 27.0-33.0 pg High MCH 33.1 LAB MCHC(LOINC) 32.0-36.0 G/dL MCHC 33.2 LAB RDW(LOINC) 11.5-15.5 % High RDW 16.7 LAB PLT(LOINC) 150-450 10 3/mcL Low Platelet 54 LAB MPV(LOINC) 6.6-10.5 fL MPV 9.2 Performed By: #### CBC, ADIFF, ANEU, BMP, GFR #### [place] [address] .AUTO DIFF Collected: 06/03/2017 Status: F Source: [facility] 5:48 AM [facility] REPOSITORY TYPE CODE TESTS RESULT OUT OF REFERENCE UNITS RANGE LAB DENICE(LOINC) 50.0-75.0 % Neutrophil % 74.4 LAB LYM(LOINC) 20.0-40.0 % Low Lymphocyte % 14.2 LAB MON(LOINC) 2.0-13.0 % Monocyte % 8.4 LAB EO(LOINC) 0.0-6.0 % Eosinophil % 2.5 LAB BAS(LOINC) 0.0-2.5 % Basophil % 0.5 LAB ABLYM(LOIN 0.90-4.32 10 3/mcL C) Low Lymphocyte, 0.70 Absolute LAB JAMES(LOINC 0.09-1.40 10 3/mcL ) Monocyte, 0.40 Absolute LAB AEOS(LOINC 0.00-0.65 10 3/mcL ) Eosinophil, 0.10 Absolute LAB ABAS(LOINC 0.00-0.27 10 3/mcL ) Basophil, 0.00 Absolute Performed By: #### CBC, ADIFF, ANEU, BMP, GFR #### [place] [address] .NEUABS Collected: 06/03/2017 Status: F Source: [facility] 5:48 AM [facility] REPOSITORY TYPE CODE TESTS RESULT OUT OF REFERENCE UNITS RANGE LAB ANEU(LOINC) 2.25-8.10 10 3/mcL Neutrophil, 3.40 Absolute Performed By: #### CBC, ADIFF, ANEU, BMP, GFR #### [place] [address] BMP Collected: 06/03/2017 Status: F Source: [facility] 5:48 AM [facility] REPOSITORY TYPE CODE TESTS RESULT OUT OF REFERENCE UNITS RANGE LAB GLU(LOINC) 82-115 mg/dL Glucose High Level 243 LAB NA(LOINC) 136-145 mEq/L Sodium Level 137 LAB K(LOINC) 3.5-5.0 mEq/L Potassium Level 4.6 LAB CL(LOINC) 98-110 mEq/L Chloride 105 LAB CO2(LOINC) 22-32 mEq/L CO2 22 LAB EBAL(LOINC 4.0-15.0 mEq/L ) Electrolyte Balance 10.0 LAB BUN(LOINC) 8.0-22.0 mg/dL BUN High 52.0 LAB CRE(LOINC) 0.50-1.20 mg/dL Creatinine High Lvl (s) 2.78 LAB BC(LOINC) 10.0-22.0 ratio BUN/Creatinine 18.7 Ratio LAB CA(LOINC) 8.4-10.1 mg/dL Low Calcium Lvl 8.2 Performed By: #### CBC, ADIFF, ANEU, BMP, GFR #### [place] [address] .GFR Collected: 06/03/2017 Status: F Source: [facility] 5:48 AM [facility] REPOSIT[facility] TYPE CODE TESTS RESULT OUT OF REFERENCE UNITS RANGE LAB GFRAA(LOINC ml/min/1.73 ) sqm GFR 21 Citizen Of [place] Result Comment: GFR Population mean for , Non- Americans Ages 20-29 = 116 mL/min/1.73 sq.m. Ages 30-39 = 107 mL/min/1.73 sq.m. Ages 40-49 = 99 mL/min/1.73 sq.m. Ages 50-59 = 93 mL/min/1.73 sq.m. Ages 60-69 = 85 mL/min/1.73 sq.m. Ages 70+ = 75 mL/min/1.73 sq.m. Chronic Kidney Disease: Less than 60 mL/min/1.73 square meters End Stage Renal Disease: Less than 15 mL/min/1.73 square meters LAB GFRNO(LOINC) ml/min/1.73sqm GFR Non- 17 Result Comment: GFR Population mean for , Non- Americans Ages 20-29 = 116 mL/min/1.73 sq.m. Ages 30-39 = 107 mL/min/1.73 sq.m. Ages 40-49 = 99 mL/min/1.73 sq.m. Ages 50-59 = 93 mL/min/1.73 sq.m. Ages 60-69 = 85 mL/min/1.73 sq.m. Ages 70+ = 75 mL/min/1.73 sq.m. Chronic Kidney Disease: Less than 60 mL/min/1.73 square meters End Stage Renal Disease: Less than 15 mL/min/1.73 square meters Performed By: #### CBC, ADIFF, ANEU, BMP, GFR #### [address] [address] RBC (PRODUCT) Collected: 06/03/2017 Status: F Source: [facility] 1:02 AM [facility] REPOSITORY TYPE CODE TESTS RESULT OUT OF REFERENCE UNITS RANGE LAB RBCPR(LOINC ) RBC Product RBC Ready Ready for Pickup Performed By: #### RBCP #### [address] [address] CBC Collected: 06/02/2017 Status: F Source: [facility] 10:39 PM [facility] REPOSITORY TYPE CODE TESTS RESULT OUT OF REFERENCE UNITS RANGE LAB WBC(LOINC) 4.50-10.80 10 3/mcL Low WBC 4.20 LAB RBCCT(LOINC 4.10-5.30 10 6/mcL ) Low RBC 2.10 LAB HGB(LOINC) 12.0-16.0 G/dL Low Hgb 7.1 LAB HCT(LOINC) 34.0-46.0 % Low Hct 21.4 LAB MCV(LOINC) 80.0-99.0 fL High MCV 101.5 LAB MCH(LOINC) 27.0-33.0 pg High MCH 33.9 LAB MCHC(LOINC) 32.0-36.0 G/dL MCHC 33.4 LAB RDW(LOINC) 11.5-15.5 % High RDW 16.5 LAB PLT(LOINC) 150-450 10 3/mcL Low Platelet 52 LAB MPV(LOINC) 6.6-10.5 fL MPV 9.3 Performed By: #### CBC, ADIFF, ANEU, BMP, GFR #### [address] [address] .AUTO DIFF Collected: 06/02/2017 Status: F Source: [facility] 10:39 PM [facility] REPOSITORY TYPE CODE TESTS RESULT OUT OF REFERENCE UNITS RANGE LAB DENICE(LOINC) 50.0-75.0 % High Neutrophil % 87.4 LAB LYM(LOINC) 20.0-40.0 % Low Lymphocyte % 5.5 LAB MON(LOINC) 2.0-13.0 % Monocyte % 4.2 LAB EO(LOINC) 0.0-6.0 % Eosinophil % 2.0 LAB BAS(LOINC) 0.0-2.5 % Basophil % 0.9 LAB ABLYM(LOIN 0.90-4.32 10 3/mcL C) Low Lymphocyte, 0.20 Absolute LAB JAMES(LOINC 0.09-1.40 10 3/mcL ) Monocyte, 0.20 Absolute LAB AEOS(LOINC 0.00-0.65 10 3/mcL ) Eosinophil, 0.10 Absolute LAB ABAS(LOINC 0.00-0.27 10 3/mcL ) Basophil, 0.00 Absolute Performed By: #### CBC, ADIFF, ANEU, BMP, GFR #### [place] [address] .NEUABS Collected: 06/02/2017 Status: F Source: [facility] 10:39 PM [facility] REPOSITORY TYPE CODE TESTS RESULT OUT OF REFERENCE UNITS RANGE LAB ANEU(LOINC) 2.25-8.10 10 3/mcL Neutrophil, 3.70 Absolute Performed By: #### CBC, ADIFF, ANEU, BMP, GFR #### [place] [address] BMP Collected: 06/02/2017 Status: F Source: [facility] 10:39 [facility] REPOSITORY TYPE CODE TESTS RESULT OUT OF REFERENCE UNITS RANGE LAB GLU(LOINC) 82-115 mg/dL Glucose High Level 307 LAB NA(LOINC) 136-145 mEq/L Low Sodium Level 135 LAB K(LOINC) 3.5-5.0 mEq/L Potassium Level 4.9 LAB CL(LOINC) 98-110 mEq/L Chloride 103 LAB CO2(LOINC) 22-32 mEq/L CO2 25 LAB EBAL(LOINC 4.0-15.0 mEq/L ) Electrolyte Balance 7.0 LAB BUN(LOINC) 8.0-22.0 mg/dL BUN High 49.0 LAB CRE(LOINC) 0.50-1.20 mg/dL Creatinine High Lvl (s) 2.72 LAB BC(LOINC) 10.0-22.0 ratio BUN/Creatinine 18.0 Ratio LAB CA(LOINC) 8.4-10.1 mg/dL Calcium Lvl 8.5 Performed By: #### CBC, ADIFF, ANEU, BMP, GFR #### [address] [address] .GFR Collected: 06/02/2017 Status: F Source: [facility] 10:39 PM [facility] REPOSITORY TYPE CODE TESTS RESULT OUT OF REFERENCE UNITS RANGE LAB GFRAA(LOINC ml/min/1.73 ) sqm GFR 21 Citizen Of [place] Result Comment: GFR Population mean for , Non- Americans Ages 20-29 = 116 mL/min/1.73 sq.m. Ages 30-39 = 107 mL/min/1.73 sq.m. Ages 40-49 = 99 mL/min/1.73 sq.m. Ages 50-59 = 93 mL/min/1.73 sq.m. Ages 60-69 = 85 mL/min/1.73 sq.m. Ages 70+ = 75 mL/min/1.73 sq.m. Chronic Kidney Disease: Less than 60 mL/min/1.73 square meters End Stage Renal Disease: Less than 15 mL/min/1.73 square meters LAB GFRNO(LOINC) ml/min/1.73sqm GFR Non- 17 Result Comment: GFR Population mean for , Non- Americans Ages 20-29 = 116 mL/min/1.73 sq.m. Ages 30-39 = 107 mL/min/1.73 sq.m. Ages 40-49 = 99 mL/min/1.73 sq.m. Ages 50-59 = 93 mL/min/1.73 sq.m. Ages 60-69 = 85 mL/min/1.73 sq.m. Ages 70+ = 75 mL/min/1.73 sq.m. Chronic Kidney Disease: Less than 60 mL/min/1.73 square meters End Stage Renal Disease: Less than 15 mL/min/1.73 square meters Performed By: #### CBC, ADIFF, ANEU, BMP, GFR #### [address] [address] TABO Collected: 06/02/2017 Status: F Source: [facility] 10:20 AM [facility] REPOSITORY TYPE CODE TESTS RESULT OUT OF RANGE REFERENCE UNITS LAB ABORH(LOINC ) Unknown ABO/Rh O POS Interp Performed By: #### ABORH, ANTIS, ANTID, AUTC, RBCP #### [place] [address] TABS Collected: 06/02/2017 Status: F Source: [facility] 10:20 AM [facility] REPOSITORY TYPE CODE TESTS RESULT OUT OF REFERENCE UNITS RANGE LAB ANST(LOINC ) Antibody Positive ABSC Screen Tango Performed By: #### ABORH, ANTIS, ANTID, AUTC, RBCP #### [place] [address] ABID Collected: 06/02/2017 Status: C Source: [facility] 10:20 AM [facility] REPOSITORY Order Comment: Ordered by Discern Expert TYPE CODE TESTS RESULT OUT OF RANGE REFERENCE UNITS LAB ANTID(LOIN C) Unknown Antibody ID Result Comment: Anti-E Anti-FyA Performed By: #### ABORH, ANTIS, ANTID, AUTC, RBCP #### [place] [address] AUTO Collected: 06/02/2017 Status: F Source: [facility] 10:20 AM [facility] REPOSITORY Order Comment: Ordered by Discern Expert TYPE CODE TESTS RESULT OUT OF REFERENCE UNITS RANGE LAB AUTO(LOINC ) Auto Control Negative Performed By: #### ABORH, ANTIS, ANTID, AUTC, RBCP #### [place] [address] RBC (PRODUCT) Collected: 06/02/2017 Status: F Source: [facility] 10:20 AM [facility] REPOSITORY TYPE CODE TESTS RESULT OUT OF REFERENCE UNITS RANGE LAB RBCPR(LOINC ) RBC Product RBC Ready Ready for Pickup Performed By: #### ABORH, ANTIS, ANTID, AUTC, RBCP #### [place] [address] PLATELET (PRODUCT) Collected: 06/02/2017 Status: F Source: [facility] 9:52 AM [facility] REPOSITORY TYPE CODE TESTS RESULT OUT OF REFERENCE UNITS RANGE LAB PPR(LOINC) Platelet Platelet Ready Product Ready for Pickup Performed By: #### PLTP #### [place] [address] CBC Collected: 06/02/2017 Status: F Source: [facility] 5:07 AM [facility] REPOSITORY TYPE CODE TESTS RESULT OUT OF REFERENCE UNITS RANGE LAB WBC(LOINC) 4.50-10.80 10 3/mcL WBC 5.40 LAB RBCCT(LOINC 4.10-5.30 10 6/mcL ) Low RBC 2.25 LAB HGB(LOINC) 12.0-16.0 G/dL Low Hgb 7.7 LAB HCT(LOINC) 34.0-46.0 % Low Hct 22.5 LAB MCV(LOINC) 80.0-99.0 fL High MCV 99.9 LAB MCH(LOINC) 27.0-33.0 pg High MCH 34.0 LAB MCHC(LOINC) 32.0-36.0 G/dL MCHC 34.0 LAB RDW(LOINC) 11.5-15.5 % High RDW 16.1 LAB PLT(LOINC) 150-450 10 3/mcL Low Platelet 48 LAB MPV(LOINC) 6.6-10.5 fL MPV 9.6 Performed By: #### CBC, BMP, FERR, FES, GFR, B12, ADIFF, ANEU, MORPH, HCQPCR #### [place] [address] BMP Collected: 06/02/2017 Status: F Source: [facility] 5:07 AM [facility] REPOSITORY TYPE CODE TESTS RESULT OUT OF REFERENCE UNITS RANGE LAB GLU(LOINC) 82-115 mg/dL Glucose High Level 224 LAB NA(LOINC) 136-145 mEq/L Sodium Level 139 LAB K(LOINC) 3.5-5.0 mEq/L Potassium Level 5.0 LAB CL(LOINC) 98-110 mEq/L Chloride 106 LAB CO2(LOINC) 22-32 mEq/L CO2 25 LAB EBAL(LOINC 4.0-15.0 mEq/L ) Electrolyte Balance 8.0 LAB BUN(LOINC) 8.0-22.0 mg/dL BUN High 45.0 LAB CRE(LOINC) 0.50-1.20 mg/dL Creatinine High Lvl (s) 2.11 LAB BC(LOINC) 10.0-22.0 ratio BUN/Creatinine 21.3 Ratio LAB CA(LOINC) 8.4-10.1 mg/dL Low Calcium Lvl 8.3 Performed By: #### CBC, BMP, FERR, FES, GFR, B12, ADIFF, ANEU, MORPH, HCQPCR #### [place] [address] FERR Collected: 06/02/2017 Status: F Source: [facility] 5:07 AM [facility] REPOSITORY TYPE CODE TESTS RESULT OUT OF REFERENCE UNITS RANGE LAB FERR(LOINC) 8-252 ng/mL Ferritin 110 Performed By: #### CBC, BMP, FERR, FES, GFR, B12, ADIFF, ANEU, MORPH, HCQPCR #### [place] [address] FES Collected: 06/02/2017 Status: F Source: [facility] 5:07 AM [facility] REPOSITORY TYPE CODE TESTS RESULT OUT OF RANGE REFERENCE UNITS LAB FE(LOINC) 37-170 mcg/dL Low Iron 17 LAB IBC(LOINC) 250-500 mcg/dL Low TIBC 240 LAB FESAT(LOINC % ) Iron Sat 7 Performed By: #### CBC, BMP, FERR, FES, GFR, B12, ADIFF, ANEU, MORPH, HCQPCR #### [place] [address] .GFR Collected: 06/02/2017 Status: F Source: [facility] 5:07 AM [facility] REPOSITORY TYPE CODE TESTS RESULT OUT OF REFERENCE UNITS RANGE LAB GFRAA(LOINC ml/min/1.73 ) sqm GFR 28 Citizen Of [place] Result Comment: GFR Population mean for , Non- Americans Ages 20-29 = 116 mL/min/1.73 sq.m. Ages 30-39 = 107 mL/min/1.73 sq.m. Ages 40-49 = 99 mL/min/1.73 sq.m. Ages 50-59 = 93 mL/min/1.73 sq.m. Ages 60-69 = 85 mL/min/1.73 sq.m. Ages 70+ = 75 mL/min/1.73 sq.m. Chronic Kidney Disease: Less than 60 mL/min/1.73 square meters End Stage Renal Disease: Less than 15 mL/min/1.73 square meters LAB GFRNO(LOINC) ml/min/1.73sqm GFR Non- 23 Result Comment: GFR Population mean for , Non- Americans Ages 20-29 = 116 mL/min/1.73 sq.m. Ages 30-39 = 107 mL/min/1.73 sq.m. Ages 40-49 = 99 mL/min/1.73 sq.m. Ages 50-59 = 93 mL/min/1.73 sq.m. Ages 60-69 = 85 mL/min/1.73 sq.m. Ages 70+ = 75 mL/min/1.73 sq.m. Chronic Kidney Disease: Less than 60 mL/min/1.73 square meters End Stage Renal Disease: Less than 15 mL/min/1.73 square meters Performed By: #### CBC, BMP, FERR, FES, GFR, B12, ADIFF, ANEU, MORPH, HCQPCR #### [address] [address] B12 Collected: 06/02/2017 Status: F Source: [facility] 5:07 AM [facility] REPOSITORY TYPE CODE TESTS RESULT OUT OF REFERENCE UNITS RANGE LAB B12(LOINC) 211-911 pg/mL Vitamin B12 340 Lvl Performed By: #### CBC, BMP, FERR, FES, GFR, B12, ADIFF, ANEU, MORPH, HCQPCR #### [address] [address] .AUTO DIFF Collected: 06/02/2017 Status: F Source: [facility] 5:07 [facility] REPOSITORY TYPE CODE TESTS RESULT OUT OF REFERENCE UNITS RANGE LAB DENICE(LOINC) 50.0-75.0 % High Neutrophil % 81.5 LAB LYM(LOINC) 20.0-40.0 % Low Lymphocyte % 10.5 LAB MON(LOINC) 2.0-13.0 % Monocyte % 6.6 LAB EO(LOINC) 0.0-6.0 % Eosinophil % 0.8 LAB BAS(LOINC) 0.0-2.5 % Basophil % 0.6 LAB ABLYM(LOIN 0.90-4.32 10 3/mcL C) Low Lymphocyte, 0.60 Absolute LAB JAMES(LOINC 0.09-1.40 10 3/mcL ) Monocyte, 0.40 Absolute LAB AEOS(LOINC 0.00-0.65 10 3/mcL ) Eosinophil, 0.00 Absolute LAB ABAS(LOINC 0.00-0.27 10 3/mcL ) Basophil, 0.00 Absolute Performed By: #### CBC, BMP, FERR, FES, GFR, B12, ADIFF, ANEU, MORPH, HCQPCR #### [place] [id number] .NEUABS Collected: 06/02/2017 Status: F Source: [facility] 5:07 AM [facility] REPOSITORY TYPE CODE TESTS RESULT OUT OF REFERENCE UNITS RANGE LAB ANEU(LOINC) 2.25-8.10 10 3/mcL Neutrophil, 4.30 Absolute Performed By: #### CBC, BMP, FERR, FES, GFR, B12, ADIFF, ANEU, MORPH, HCQPCR #### [place] [address] .MORPH Collected: 06/02/2017 Status: F Source: [facility] 5:07 AM [facility] REPOSITORY TYPE CODE TESTS RESULT OUT OF REFERENCE UNITS RANGE LAB PLTE(LOINC ) Platelet Estimate Grt Decreased LAB ANIS(LOINC ) Anisocytosis Slight LAB POIK(LOINC ) Poik Slight LAB POLC(LOINC ) Polychrom Slight LAB MACYT(LOIN C) Macrocytosis Slight LAB OVAL(LOINC ) Ovalocytes Few Performed By: #### CBC, BMP, FERR, FES, GFR, B12, ADIFF, ANEU, MORPH, HCQPCR #### [place] [address] HCQPCR Collected: 06/02/2017 Status: F Source: [facility] 5:07 AM [facility] REPOSITORY TYPE CODE TESTS RESULT OUT OF REFERENCE UNITS RANGE LAB HCQPCR([facility]ASHMI [place]) Hepatitis C RNA HCV RNA not detected by PCR. Result Comment: Reference Range: Negative for HCV RNA The Linear Range of this assay is 15 IU/mL to 100,000,000 IU/mL. Performed By: [facility] [address] [place] [address] Mule Rider: Giovany Harper#: [id number] Phone#: Performed By: #### CBC, BMP, FERR, FES, GFR, B12, ADIFF, ANEU, MORPH, HCQPCR #### [place] [address] BG Collected: 06/01/2017 Status: F Source: [facility] 11:49 PM [facility] REPOSITORY TYPE CODE TESTS RESULT OUT OF REFERENCE UNITS RANGE LAB PH(LOINC) 7.380-7.460 pH 7.440 LAB PCO2(LOINC 32.0-46.0 mmHg ) pCO2 34.6 LAB PO2(LOINC) 74.0-108.0 mmHg Low pO2 67.1 LAB HCO3(LOINC 21.0-29.0 mmol/L ) HCO3 23.0 LAB TCO2(LOINC 22.0-30.0 mmol/L ) CO2 Totl 24.0 LAB BE(LOINC) mmol/L Base Excess -0.9 LAB O2SAT(LOIN 92.0-96.0 % C) O2 Sat 93.3 LAB BPRES(LOIN mmHg C) Barometric 738 Pressure Performed By: #### BG #### [address] [address] CBC Collected: 06/01/2017 Status: F Source: [facility] 6:25 AM [facility] REPOSITORY TYPE CODE TESTS RESULT OUT OF REFERENCE UNITS RANGE LAB WBC(LOINC) 4.50-10.80 10 3/mcL Low WBC 4.00 LAB RBCCT(LOINC 4.10-5.30 10 6/mcL ) Low RBC 2.30 LAB HGB(LOINC) 12.0-16.0 G/dL Low Hgb 7.9 LAB HCT(LOINC) 34.0-46.0 % Low Hct 22.9 LAB MCV(LOINC) 80.0-99.0 fL High MCV 99.5 LAB MCH(LOINC) 27.0-33.0 pg High MCH 34.2 LAB MCHC(LOINC) 32.0-36.0 G/dL MCHC 34.4 LAB RDW(LOINC) 11.5-15.5 % High RDW 16.1 LAB PLT(LOINC) 150-450 10 3/mcL Low Platelet 53 LAB MPV(LOINC) 6.6-10.5 fL MPV 9.2 Performed By: #### CBC, ADIFF, ANEU, BMP, GFR #### [address] [address] .AUTO DIFF Collected: 06/01/2017 Status: F Source: [facility] 6:25 AM [facility] REPOSITORY TYPE CODE TESTS RESULT OUT OF REFERENCE UNITS RANGE LAB DENICE(LOINC) 50.0-75.0 % Neutrophil % 68.4 LAB LYM(LOINC) 20.0-40.0 % Low Lymphocyte % 19.0 LAB MON(LOINC) 2.0-13.0 % Monocyte % 6.6 LAB EO(LOINC) 0.0-6.0 % Eosinophil % 5.2 LAB BAS(LOINC) 0.0-2.5 % Basophil % 0.8 LAB ABLYM(LOIN 0.90-4.32 10 3/mcL C) Low Lymphocyte, 0.80 Absolute LAB JAMES(LOINC 0.09-1.40 10 3/mcL ) Monocyte, 0.30 Absolute LAB AEOS(LOINC 0.00-0.65 10 3/mcL ) Eosinophil, 0.20 Absolute LAB ABAS(LOINC 0.00-0.27 10 3/mcL ) Basophil, 0.00 Absolute Performed By: #### CBC, ADIFF, ANEU, BMP, GFR #### [place] [address] .NEUABS Collected: 06/01/2017 Status: F Source: [facility] 6:25 AM [facility] REPOSITORY TYPE CODE TESTS RESULT OUT OF REFERENCE UNITS RANGE LAB ANEU(LOINC) 2.25-8.10 10 3/mcL Neutrophil, 2.70 Absolute Performed By: #### CBC, ADIFF, ANEU, BMP, GFR #### [place] [address] BMP Collected: 06/01/2017 Status: F Source: [facility] 6:25 AM [facility] REPOSITORY TYPE CODE TESTS RESULT OUT OF REFERENCE UNITS RANGE LAB GLU(LOINC) 82-115 mg/dL Glucose High Level 145 LAB NA(LOINC) 136-145 mEq/L Sodium Level 140 LAB K(LOINC) 3.5-5.0 mEq/L Potassium Level 4.7 LAB CL(LOINC) 98-110 mEq/L Chloride 109 LAB CO2(LOINC) 22-32 mEq/L CO2 25 LAB EBAL(LOINC 4.0-15.0 mEq/L ) Electrolyte Balance 6.0 LAB BUN(LOINC) 8.0-22.0 mg/dL BUN High 40.0 LAB CRE(LOINC) 0.50-1.20 mg/dL Creatinine High Lvl (s) 2.08 LAB BC(LOINC) 10.0-22.0 ratio BUN/Creatinine 19.2 Ratio LAB CA(LOINC) 8.4-10.1 mg/dL Calcium Lvl 8.5 Performed By: #### CBC, ADIFF, ANEU, BMP, GFR #### [address] [address] .GFR Collected: 06/01/2017 Status: F Source: [facility] 6:25 AM [facility] REPOSITORY TYPE CODE TESTS RESULT OUT OF REFERENCE UNITS RANGE LAB GFRAA(LOINC ml/min/1.73 ) sqm GFR 29 Citizen Of [place] Result Comment: GFR Population mean for , Non- Americans Ages 20-29 = 116 mL/min/1.73 sq.m. Ages 30-39 = 107 mL/min/1.73 sq.m. Ages 40-49 = 99 mL/min/1.73 sq.m. Ages 50-59 = 93 mL/min/1.73 sq.m. Ages 60-69 = 85 mL/min/1.73 sq.m. Ages 70+ = 75 mL/min/1.73 sq.m. Chronic Kidney Disease: Less than 60 mL/min/1.73 square meters End Stage Renal Disease: Less than 15 mL/min/1.73 square meters LAB GFRNO(LOINC) ml/min/1.73sqm GFR Non- 24 Result Comment: GFR Population mean for , Non- Americans Ages 20-29 = 116 mL/min/1.73 sq.m. Ages 30-39 = 107 mL/min/1.73 sq.m. Ages 40-49 = 99 mL/min/1.73 sq.m. Ages 50-59 = 93 mL/min/1.73 sq.m. Ages 60-69 = 85 mL/min/1.73 sq.m. Ages 70+ = 75 mL/min/1.73 sq.m. Chronic Kidney Disease: Less than 60 mL/min/1.73 square meters End Stage Renal Disease: Less than 15 mL/min/1.73 square meters Performed By: #### CBC, ADIFF, ANEU, BMP, GFR #### [address] [address] BMP Collected: 05/31/2017 Status: F Source: [facility] 5:34 AM [facility] REPOSITORY TYPE CODE TESTS RESULT OUT OF REFERENCE UNITS RANGE LAB GLU(LOINC) 82-115 mg/dL Glucose High Level 307 LAB NA(LOINC) 136-145 mEq/L Sodium Level 137 LAB K(LOINC) 3.5-5.0 mEq/L Potassium High Level 5.4 LAB CL(LOINC) 98-110 mEq/L Chloride 109 LAB CO2(LOINC) 22-32 mEq/L Low CO2 21 LAB EBAL(LOINC 4.0-15.0 mEq/L ) Electrolyte Balance 7.0 LAB BUN(LOINC) 8.0-22.0 mg/dL BUN High 45.0 LAB CRE(LOINC) 0.50-1.20 mg/dL Creatinine High Lvl (s) 2.21 LAB BC(LOINC) 10.0-22.0 ratio BUN/Creatinine 20.4 Ratio LAB CA(LOINC) 8.4-10.1 mg/dL Calcium Lvl 8.4 Performed By: #### BMP, GFR, CBC, MORPH, ADIFF, ANEU #### [facility] [address] [place] [address] .GFR Collected: 05/31/2017 Status: F Source: [facility] 5:34 AM [facility] REPOSITORY TYPE CODE TESTS RESULT OUT OF REFERENCE UNITS RANGE LAB GFRAA(LOINC ml/min/1.73 ) sqm GFR 27 Citizen Of [place] Result Comment: GFR Population mean for , Non- Americans Ages 20-29 = 116 mL/min/1.73 sq.m. Ages 30-39 = 107 mL/min/1.73 sq.m. Ages 40-49 = 99 mL/min/1.73 sq.m. Ages 50-59 = 93 mL/min/1.73 sq.m. Ages 60-69 = 85 mL/min/1.73 sq.m. Ages 70+ = 75 mL/min/1.73 sq.m. Chronic Kidney Disease: Less than 60 mL/min/1.73 square meters End Stage Renal Disease: Less than 15 mL/min/1.73 square meters LAB GFRNO(LOINC) ml/min/1.73sqm GFR Non- 22 Result Comment: GFR Population mean for , Non- Americans Ages 20-29 = 116 mL/min/1.73 sq.m. Ages 30-39 = 107 mL/min/1.73 sq.m. Ages 40-49 = 99 mL/min/1.73 sq.m. Ages 50-59 = 93 mL/min/1.73 sq.m. Ages 60-69 = 85 mL/min/1.73 sq.m. Ages 70+ = 75 mL/min/1.73 sq.m. Chronic Kidney Disease: Less than 60 mL/min/1.73 square meters End Stage Renal Disease: Less than 15 mL/min/1.73 square meters Performed By: #### BMP, GFR, CBC, MORPH, ADIFF, ANEU #### [address] [address] CBC Collected: 05/31/2017 Status: F Source: [facility] 5:34 AM [facility] REPOSITORY TYPE CODE TESTS RESULT OUT OF REFERENCE UNITS RANGE LAB WBC(LOINC) 4.50-10.80 10 3/mcL Low WBC 3.60 LAB RBCCT(LOINC 4.10-5.30 10 6/mcL ) Low RBC 2.34 LAB HGB(LOINC) 12.0-16.0 G/dL Low Hgb 7.8 LAB HCT(LOINC) 34.0-46.0 % Low Hct 23.4 LAB MCV(LOINC) 80.0-99.0 fL High MCV 100.0 LAB MCH(LOINC) 27.0-33.0 pg High MCH 33.3 LAB MCHC(LOINC) 32.0-36.0 G/dL MCHC 33.3 LAB RDW(LOINC) 11.5-15.5 % High RDW 16.0 LAB PLT(LOINC) 150-450 10 3/mcL Low Platelet 44 LAB MPV(LOINC) 6.6-10.5 fL MPV 9.3 Performed By: #### BMP, GFR, CBC, MORPH, ADIFF, ANEU #### [address] [address] .MORPH Collected: 05/31/2017 Status: F Source: [facility] 5:34 AM [facility] REPOSITORY TYPE CODE TESTS RESULT OUT OF REFERENCE UNITS RANGE LAB PLTE(LOINC ) Platelet Estimate Grt Decreased LAB ANIS(LOINC ) Anisocytosis Slight LAB POLC(LOINC ) Polychrom Slight Performed By: #### BMP, GFR, CBC, MORPH, ADIFF, ANEU #### [place] [address] .AUTO DIFF Collected: 05/31/2017 Status: F Source: [facility] 5:34 AM [facility] REPOSITORY TYPE CODE TESTS RESULT OUT OF REFERENCE UNITS RANGE LAB DENICE(LOINC) 50.0-75.0 % Neutrophil % 68.8 LAB LYM(LOINC) 20.0-40.0 % Low Lymphocyte % 19.3 LAB MON(LOINC) 2.0-13.0 % Monocyte % 6.3 LAB EO(LOINC) 0.0-6.0 % Eosinophil % 4.7 LAB BAS(LOINC) 0.0-2.5 % Basophil % 0.9 LAB ABLYM(LOIN 0.90-4.32 10 3/mcL C) Low Lymphocyte, 0.70 Absolute LAB JAMES(LOINC 0.09-1.40 10 3/mcL ) Monocyte, 0.20 Absolute LAB AEOS(LOINC 0.00-0.65 10 3/mcL ) Eosinophil, 0.20 Absolute LAB ABAS(LOINC 0.00-0.27 10 3/mcL ) Basophil, 0.00 Absolute Performed By: #### BMP, GFR, CBC, MORPH, ADIFF, ANEU #### [place] [address] .NEUABS Collected: 05/31/2017 Status: F Source: [facility] 5:34 AM [facility] REPOSITORY TYPE CODE TESTS RESULT OUT OF REFERENCE UNITS RANGE LAB ANEU(LOINC) 2.25-8.10 10 3/mcL Neutrophil, 2.50 Absolute Performed By: #### BMP, GFR, CBC, MORPH, ADIFF, ANEU #### [place] [address] .GFR Collected: 05/30/2017 Status: F Source: [facility] 4:43 PM [facility] REPOSITORY TYPE CODE TESTS RESULT OUT OF REFERENCE UNITS RANGE LAB GFRAA(LOINC ml/min/1.73 ) sqm GFR 29 Citizen Of [place] Result Comment: GFR Population mean for , Non- Americans Ages 20-29 = 116 mL/min/1.73 sq.m. Ages 30-39 = 107 mL/min/1.73 sq.m. Ages 40-49 = 99 mL/min/1.73 sq.m. Ages 50-59 = 93 mL/min/1.73 sq.m. Ages 60-69 = 85 mL/min/1.73 sq.m. Ages 70+ = 75 mL/min/1.73 sq.m. Chronic Kidney Disease: Less than 60 mL/min/1.73 square meters End Stage Renal Disease: Less than 15 mL/min/1.73 square meters LAB GFRNO(LOINC) ml/min/1.73sqm GFR Non- 24 Result Comment: GFR Population mean for , Non- Americans Ages 20-29 = 116 mL/min/1.73 sq.m. Ages 30-39 = 107 mL/min/1.73 sq.m. Ages 40-49 = 99 mL/min/1.73 sq.m. Ages 50-59 = 93 mL/min/1.73 sq.m. Ages 60-69 = 85 mL/min/1.73 sq.m. Ages 70+ = 75 mL/min/1.73 sq.m. Chronic Kidney Disease: Less than 60 mL/min/1.73 square meters End Stage Renal Disease: Less than 15 mL/min/1.73 square meters Performed By: #### GFR, BMP #### [place] [address] BMP Collected: 05/30/2017 Status: F Source: [facility] 4:43 PM [facility] REPOSITORY TYPE CODE TESTS RESULT OUT OF REFERENCE UNITS RANGE LAB GLU(LOINC) 82-115 mg/dL High Glucose Level 152 LAB NA(LOINC) 136-145 mEq/L Sodium Level 138 LAB K(LOINC) 3.5-5.0 mEq/L High Potassium Level 5.3 Result Comment: Specimen slightly hemolyzed. Result may be falsely elevated. LAB CL(LOINC) 98-110 mEq/L Chloride 107 LAB CO2(LOINC) 22-32 mEq/L CO2 27 LAB EBAL(LOINC) 4.0-15.0 mEq/L Electrolyte Balance 4.0 LAB BUN(LOINC) 8.0-22.0 mg/dL BUN High 46.0 LAB CRE(LOINC) 0.50-1.20 mg/dL Creatinine High Lvl (s) 2.08 LAB BC(LOINC) 10.0-22.0 ratio High BUN/Creatinine Ratio 22.1 LAB CA(LOINC) 8.4-10.1 mg/dL Calcium Lvl 8.8 Performed By: #### GFR, BMP #### [address] [address] CBC Collected: 05/30/2017 Status: F Source: [facility] 5:05 AM [facility] REPOSITORY TYPE CODE TESTS RESULT OUT OF REFERENCE UNITS RANGE LAB WBC(LOINC) 4.50-10.80 10 3/mcL Low WBC 3.70 LAB RBCCT(LOINC 4.10-5.30 10 6/mcL ) Low RBC 2.34 LAB HGB(LOINC) 12.0-16.0 G/dL Low Hgb 8.0 LAB HCT(LOINC) 34.0-46.0 % Low Hct 23.5 LAB MCV(LOINC) 80.0-99.0 fL High MCV 100.5 LAB MCH(LOINC) 27.0-33.0 pg High MCH 34.0 LAB MCHC(LOINC) 32.0-36.0 G/dL MCHC 33.8 LAB RDW(LOINC) 11.5-15.5 % High RDW 15.8 LAB PLT(LOINC) 150-450 10 3/mcL Low Platelet 52 LAB MPV(LOINC) 6.6-10.5 fL MPV 9.0 Performed By: #### CBC, ADIFF, ANEU, BMP, GFR #### [address] [address] .AUTO DIFF Collected: 05/30/2017 Status: F Source: [facility] 5:05 AM [facility] REPOSITORY TYPE CODE TESTS RESULT OUT OF REFERENCE UNITS RANGE LAB DENICE(LOINC) 50.0-75.0 % Neutrophil % 59.8 LAB LYM(LOINC) 20.0-40.0 % Lymphocyte % 26.4 LAB MON(LOINC) 2.0-13.0 % Monocyte % 7.3 LAB EO(LOINC) 0.0-6.0 % Eosinophil % 5.6 LAB BAS(LOINC) 0.0-2.5 % Basophil % 0.9 LAB ABLYM(LOIN 0.90-4.32 10 3/mcL C) Lymphocyte, 1.00 Absolute LAB JAMES(LOINC 0.09-1.40 10 3/mcL ) Monocyte, 0.30 Absolute LAB AEOS(LOINC 0.00-0.65 10 3/mcL ) Eosinophil, 0.20 Absolute LAB ABAS(LOINC 0.00-0.27 10 3/mcL ) Basophil, 0.00 Absolute Performed By: #### CBC, ADIFF, ANEU, BMP, GFR #### [place] [address] .NEUABS Collected: 05/30/2017 Status: F Source: [facility] 5:05 AM [facility] REPOSITORY TYPE CODE TESTS RESULT OUT OF REFERENCE UNITS RANGE LAB ANEU(LOINC) 2.25-8.10 10 3/mcL Low Neutrophil, 2.20 Absolute Performed By: #### CBC, ADIFF, ANEU, BMP, GFR #### [place] [address] BMP Collected: 05/30/2017 Status: F Source: [facility] 5:05 AM [facility] REPOSITORY TYPE CODE TESTS RESULT OUT OF REFERENCE UNITS RANGE LAB GLU(LOINC) 82-115 mg/dL Glucose High Level 147 LAB NA(LOINC) 136-145 mEq/L Sodium Level 143 LAB K(LOINC) 3.5-5.0 mEq/L Potassium High Level 5.5 LAB CL(LOINC) 98-110 mEq/L Chloride 110 LAB CO2(LOINC) 22-32 mEq/L CO2 28 LAB EBAL(LOINC 4.0-15.0 mEq/L ) Electrolyte Balance 5.0 LAB BUN(LOINC) 8.0-22.0 mg/dL BUN High 49.0 LAB CRE(LOINC) 0.50-1.20 mg/dL Creatinine High Lvl (s) 2.46 LAB BC(LOINC) 10.0-22.0 ratio BUN/Creatinine 19.9 Ratio LAB CA(LOINC) 8.4-10.1 mg/dL Calcium Lvl 8.7 Performed By: #### CBC, ADIFF, ANEU, BMP, GFR #### [address] [address] .GFR Collected: 05/30/2017 Status: F Source: [facility] 5:05 AM [facility] REPOSITORY TYPE CODE TESTS RESULT OUT OF REFERENCE UNITS RANGE LAB GFRAA(LOINC ml/min/1.73 ) sqm GFR 24 Citizen Of [place] Result Comment: GFR Population mean for , Non- Americans Ages 20-29 = 116 mL/min/1.73 sq.m. Ages 30-39 = 107 mL/min/1.73 sq.m. Ages 40-49 = 99 mL/min/1.73 sq.m. Ages 50-59 = 93 mL/min/1.73 sq.m. Ages 60-69 = 85 mL/min/1.73 sq.m. Ages 70+ = 75 mL/min/1.73 sq.m. Chronic Kidney Disease: Less than 60 mL/min/1.73 square meters End Stage Renal Disease: Less than 15 mL/min/1.73 square meters LAB GFRNO(LOINC) ml/min/1.73sqm GFR Non- 20 Result Comment: GFR Population mean for , Non- Americans Ages 20-29 = 116 mL/min/1.73 sq.m. Ages 30-39 = 107 mL/min/1.73 sq.m. Ages 40-49 = 99 mL/min/1.73 sq.m. Ages 50-59 = 93 mL/min/1.73 sq.m. Ages 60-69 = 85 mL/min/1.73 sq.m. Ages 70+ = 75 mL/min/1.73 sq.m. Chronic Kidney Disease: Less than 60 mL/min/1.73 square meters End Stage Renal Disease: Less than 15 mL/min/1.73 square meters Performed By: #### CBC, ADIFF, ANEU, BMP, GFR #### [place] [address] BMP Collected: 05/29/2017 Status: F Source: [facility] 5:07 AM [facility] REPOSITORY TYPE CODE TESTS RESULT OUT OF REFERENCE UNITS RANGE LAB GLU(LOINC) 82-115 mg/dL Glucose High Level 160 LAB NA(LOINC) 136-145 mEq/L Sodium Level 139 LAB K(LOINC) 3.5-5.0 mEq/L Potassium Level 4.9 LAB CL(LOINC) 98-110 mEq/L Chloride 105 LAB CO2(LOINC) 22-32 mEq/L CO2 29 LAB EBAL(LOINC 4.0-15.0 mEq/L ) Electrolyte Balance 5.0 LAB BUN(LOINC) 8.0-22.0 mg/dL BUN High 57.0 LAB CRE(LOINC) 0.50-1.20 mg/dL Creatinine High Lvl (s) 2.77 LAB BC(LOINC) 10.0-22.0 ratio BUN/Creatinine 20.6 Ratio LAB CA(LOINC) 8.4-10.1 mg/dL Calcium Lvl 8.4 Performed By: #### BMP, GFR, CBC, ADIFF, ANEU, RFP #### [place] [address] .GFR Collected: 05/29/2017 Status: F Source: [facility] 5:07 AM [facility] REPOSITORY TYPE CODE TESTS RESULT OUT OF REFERENCE UNITS RANGE LAB GFRAA(LOINC ml/min/1.73 ) sqm GFR 21 Citizen Of [place] Result Comment: GFR Population mean for , Non- Americans Ages 20-29 = 116 mL/min/1.73 sq.m. Ages 30-39 = 107 mL/min/1.73 sq.m. Ages 40-49 = 99 mL/min/1.73 sq.m. Ages 50-59 = 93 mL/min/1.73 sq.m. Ages 60-69 = 85 mL/min/1.73 sq.m. Ages 70+ = 75 mL/min/1.73 sq.m. Chronic Kidney Disease: Less than 60 mL/min/1.73 square meters End Stage Renal Disease: Less than 15 mL/min/1.73 square meters LAB GFRNO(LOINC) ml/min/1.73sqm GFR Non- 17 Result Comment: GFR Population mean for , Non- Americans Ages 20-29 = 116 mL/min/1.73 sq.m. Ages 30-39 = 107 mL/min/1.73 sq.m. Ages 40-49 = 99 mL/min/1.73 sq.m. Ages 50-59 = 93 mL/min/1.73 sq.m. Ages 60-69 = 85 mL/min/1.73 sq.m. Ages 70+ = 75 mL/min/1.73 sq.m. Chronic Kidney Disease: Less than 60 mL/min/1.73 square meters End Stage Renal Disease: Less than 15 mL/min/1.73 square meters Performed By: #### BMP, GFR, CBC, ADIFF, ANEU, RFP #### [address] [address] CBC Collected: 05/29/2017 Status: F Source: [facility] 5:07 AM [facility] REPOSITORY TYPE CODE TESTS RESULT OUT OF REFERENCE UNITS RANGE LAB WBC(LOINC) 4.50-10.80 10 3/mcL Low WBC 4.10 LAB RBCCT(LOINC 4.10-5.30 10 6/mcL ) Low RBC 2.32 LAB HGB(LOINC) 12.0-16.0 G/dL Low Hgb 7.9 LAB HCT(LOINC) 34.0-46.0 % Low Hct 23.3 LAB MCV(LOINC) 80.0-99.0 fL High MCV 100.0 LAB MCH(LOINC) 27.0-33.0 pg High MCH 34.2 LAB MCHC(LOINC) 32.0-36.0 G/dL MCHC 34.2 LAB RDW(LOINC) 11.5-15.5 % High RDW 15.7 LAB PLT(LOINC) 150-450 10 3/mcL Low Platelet 53 LAB MPV(LOINC) 6.6-10.5 fL MPV 9.4 Performed By: #### MANJU, GFR, CBC, ADIFF, ANEU, RFP #### [address] [address] .AUTO DIFF Collected: 05/29/2017 Status: F Source: [facility] 5:07 AM [facility] REPOSITORY TYPE CODE TESTS RESULT OUT OF REFERENCE UNITS RANGE LAB DENICE(LOINC) 50.0-75.0 % Neutrophil % 57.3 LAB LYM(LOINC) 20.0-40.0 % Lymphocyte % 29.4 LAB MON(LOINC) 2.0-13.0 % Monocyte % 7.0 LAB EO(LOINC) 0.0-6.0 % Eosinophil % 5.4 LAB BAS(LOINC) 0.0-2.5 % Basophil % 0.9 LAB ABLYM(LOIN 0.90-4.32 10 3/mcL C) Lymphocyte, 1.20 Absolute LAB JAMES(LOINC 0.09-1.40 10 3/mcL ) Monocyte, 0.30 Absolute LAB AEOS(LOINC 0.00-0.65 10 3/mcL ) Eosinophil, 0.20 Absolute LAB ABAS(LOINC 0.00-0.27 10 3/mcL ) Basophil, 0.00 Absolute Performed By: #### BMP, GFR, CBC, ADIFF, ANEU, RFP #### [place] [address] .NEUABS Collected: 05/29/2017 Status: F Source: [facility] 5:07 AM [facility] REPOSITORY TYPE CODE TESTS RESULT OUT OF REFERENCE UNITS RANGE LAB ANEU(LOINC) 2.25-8.10 10 3/mcL Neutrophil, 2.30 Absolute Performed By: #### BMP, GFR, CBC, ADIFF, ANEU, RFP #### [place] [address] RFP Collected: 05/29/2017 Status: F Source: [facility] 5:07 AM [facility] REPOSITORY TYPE CODE TESTS RESULT OUT OF REFERENCE UNITS RANGE LAB GLU(LOINC) 82-115 mg/dL Glucose High Level 160 LAB NA(LOINC) 136-145 mEq/L Sodium Level 139 LAB K(LOINC) 3.5-5.0 mEq/L Potassium Level 4.9 LAB CL(LOINC) 98-110 mEq/L Chloride 105 LAB CO2(LOINC) 22-32 mEq/L CO2 29 LAB EBAL(LOINC 4.0-15.0 mEq/L ) Electrolyte Balance 5.0 LAB BUN(LOINC) 8.0-22.0 mg/dL BUN High 57.0 LAB CRE(LOINC) 0.50-1.20 mg/dL Creatinine High Lvl (s) 2.77 LAB BC(LOINC) 10.0-22.0 ratio BUN/Creatinine 20.6 Ratio LAB CA(LOINC) 8.4-10.1 mg/dL Calcium Lvl 8.4 LAB PHOS(LOINC 2.5-4.5 mg/dL ) Phosphorus 4.2 LAB ALB(LOINC) 3.2-4.8 G/dL Low Albumin Level 2.8 Performed By: #### BMP, GFR, CBC, ADIFF, ANEU, RFP #### [place] [address] TROPI Collected: 05/28/2017 Status: F Source: [facility] 8:38 PM [facility] REPOSITORY TYPE CODE TESTS RESULT OUT OF REFERENCE UNITS RANGE LAB TROPI(LOINC 0.000-0.040 ng/mL ) Troponin I 0.021 Result Comment: Troponin I reference ranges (01/01/14): 0.00-0.040 ng/mL Negative and non-diagnostic. >0.040 ng/mL Consistent with cardiac damage, increased clinical risk and possibility of myocardial infarction. Serial measurements, a rise & fall in test results, clinical history, appropriate symptoms and/or ECG changes may help assess possibility of MN. *Other non-acute coronary syndrome conditions such as CHF, myocarditis, pulmonary emboli, sepsis and cardiac surgery could result in myocardial damage and increased troponin levels. Performed By: #### TROPI #### [address] [address] TROPI Collected: 05/28/2017 Status: F Source: [employer] [facility] 5:54 PM [facility] REPOSITORY TYPE CODE TESTS RESULT OUT OF REFERENCE UNITS RANGE LAB TROPI(LOINC 0.000-0.040 ng/mL ) Troponin I 0.019 Result Comment: Troponin I reference ranges (01/01/14): 0.00-0.040 ng/mL Negative and non-diagnostic. >0.040 ng/mL Consistent with cardiac damage, increased clinical risk and possibility of myocardial infarction. Serial measurements, a rise & fall in test results, clinical history, appropriate symptoms and/or ECG changes may help assess possibility of MN. *Other non-acute coronary syndrome conditions such as CHF, myocarditis, pulmonary emboli, sepsis and cardiac surgery could result in myocardial damage and increased troponin levels. Performed By: #### TROPI #### [address] [address] TROPI Collected: 05/28/2017 Status: F Source: [facility] 2:15 PM [facility] REPOSITORY TYPE CODE TESTS RESULT OUT OF REFERENCE UNITS RANGE LAB TROPI(LOINC 0.000-0.040 ng/mL ) Troponin I 0.016 Result Comment: Troponin I reference ranges (01/01/14): 0.00-0.040 ng/mL Negative and non-diagnostic. >0.040 ng/mL Consistent with cardiac damage, increased clinical risk and possibility of myocardial infarction. Serial measurements, a rise & fall in test results, clinical history, appropriate symptoms and/or ECG changes may help assess possibility of MN. *Other non-acute coronary syndrome conditions such as CHF, myocarditis, pulmonary emboli, sepsis and cardiac surgery could result in myocardial damage and increased troponin levels. Performed By: #### TROPI #### [place] [address] TROPI Collected: 05/28/2017 Status: F Source: [facility] 11:15 AM [facility] REPOSITORY TYPE CODE TESTS RESULT OUT OF REFERENCE UNITS RANGE LAB TROPI(LOINC 0.000-0.040 ng/mL ) Troponin I 0.036 Result Comment: Troponin I reference ranges (01/01/14): 0.00-0.040 ng/mL Negative and non-diagnostic. >0.040 ng/mL Consistent with cardiac damage, increased clinical risk and possibility of myocardial infarction. Serial measurements, a rise & fall in test results, clinical history, appropriate symptoms and/or ECG changes may help assess possibility of MN. *Other non-acute coronary syndrome conditions such as CHF, myocarditis, pulmonary emboli, sepsis and cardiac surgery could result in myocardial damage and increased troponin levels. Performed By: #### TROPI #### [place] [address] CRUR Collected: 05/28/2017 Status: F Source: [facility] 11:04 AM [facility] REPOSITORY TYPE CODE TESTS RESULT OUT OF REFERENCE UNITS RANGE LAB CRU(LOINC) mg/dL U Creatinine 189.0 Performed By: #### CRSUSANA, PRUR, NAUR #### [place] [address] PRUR Collected: 05/28/2017 Status: F Source: [facility] 11:04 AM [facility] REPOSITORY TYPE CODE TESTS RESULT OUT OF REFERENCE UNITS RANGE LAB PRU(LOINC) mg/dL U Protein 40.7 Performed By: #### CRSUSANA, PRUR, NAUR #### [place] [address] NAUR Collected: 05/28/2017 Status: F Source: [facility] 11:04 AM [facility] REPOSITORY TYPE CODE TESTS RESULT OUT OF REFERENCE UNITS RANGE LAB KAREN(LOINC) mEq/L U Sodium 29.0 Performed By: #### CRUR, PRUR, NAUR #### [address] [address] EOS Collected: 05/28/2017 Status: F Source: [facility] 11:04 AM [facility] REPOSITORY TYPE CODE TESTS RESULT OUT OF REFERENCE UNITS RANGE LAB EOSRC(LOIN C) Eosinophil Spec Urine Type LAB EOSMR(LOIN C) Eos Smear 0 Result Comment: The units for an eosinophil smear depend upon specimen type: Stool, sputum, nasal specimens: number of cells/hp field Urine, bronchial lavage: number of cells/100 cells (%) Performed By: #### EOS #### [address] [address] .GFR Collected: 05/28/2017 Status: F Source: [facility] 5:48 AM [facility] REPOSITORY TYPE CODE TESTS RESULT OUT OF REFERENCE UNITS RANGE LAB GFRAA(LOINC ml/min/1.73 ) sqm GFR 22 Citizen Of [place] Result Comment: GFR Population mean for , Non- Americans Ages 20-29 = 116 mL/min/1.73 sq.m. Ages 30-39 = 107 mL/min/1.73 sq.m. Ages 40-49 = 99 mL/min/1.73 sq.m. Ages 50-59 = 93 mL/min/1.73 sq.m. Ages 60-69 = 85 mL/min/1.73 sq.m. Ages 70+ = 75 mL/min/1.73 sq.m. Chronic Kidney Disease: Less than 60 mL/min/1.73 square meters End Stage Renal Disease: Less than 15 mL/min/1.73 square meters LAB GFRNO(LOINC) ml/min/1.73sqm GFR Non- 18 Result Comment: GFR Population mean for , Non- Americans Ages 20-29 = 116 mL/min/1.73 sq.m. Ages 30-39 = 107 mL/min/1.73 sq.m. Ages 40-49 = 99 mL/min/1.73 sq.m. Ages 50-59 = 93 mL/min/1.73 sq.m. Ages 60-69 = 85 mL/min/1.73 sq.m. Ages 70+ = 75 mL/min/1.73 sq.m. Chronic Kidney Disease: Less than 60 mL/min/1.73 square meters End Stage Renal Disease: Less than 15 mL/min/1.73 square meters Performed By: #### GFR, BMP, CBC, ADIFF, ANEU #### [address] [address] BMP Collected: 05/28/2017 Status: F Source: [facility] 5:48 AM [facility] REPOSITORY TYPE CODE TESTS RESULT OUT OF RANGE REFERENCE UNITS LAB GLU(LOINC) 82-115 mg/dL Glucose Abnormal Level 44 Alert LAB NA(LOINC) 136-145 mEq/L Sodium Level 141 LAB K(LOINC) 3.5-5.0 mEq/L Potassium Level 4.1 LAB CL(LOINC) 98-110 mEq/L Chloride 106 LAB CO2(LOINC) 22-32 mEq/L CO2 31 LAB EBAL(LOINC 4.0-15.0 mEq/L ) Electrolyte Balance 4.0 LAB BUN(LOINC) 8.0-22.0 mg/dL High BUN 54.0 LAB CRE(LOINC) 0.50-1.20 mg/dL High Creatinine Lvl (s) 2.65 LAB BC(LOINC) 10.0-22.0 ratio BUN/Creatinine 20.4 Ratio LAB CA(LOINC) 8.4-10.1 mg/dL Calcium Lvl 8.6 Performed By: #### GFR, BMP, CBC, ADIFF, ANEU #### [address] [address] CBC Collected: 05/28/2017 Status: F Source: [facility] 5:48 AM [facility] REPOSITORY TYPE CODE TESTS RESULT OUT OF REFERENCE UNITS RANGE LAB WBC(LOINC) 4.50-10.80 10 3/mcL WBC 7.20 LAB RBCCT(LOINC 4.10-5.30 10 6/mcL ) Low RBC 2.96 LAB HGB(LOINC) 12.0-16.0 G/dL Low Hgb 10.1 LAB HCT(LOINC) 34.0-46.0 % Low Hct 29.3 LAB MCV(LOINC) 80.0-99.0 fL High MCV 99.2 LAB MCH(LOINC) 27.0-33.0 pg High MCH 34.1 LAB MCHC(LOINC) 32.0-36.0 G/dL MCHC 34.3 LAB RDW(LOINC) 11.5-15.5 % High RDW 15.9 LAB PLT(LOINC) 150-450 10 3/mcL Low Platelet 89 LAB MPV(LOINC) 6.6-10.5 fL MPV 9.6 Performed By: #### GFR, BMP, CBC, ADIFF, ANEU #### [place] [address] .AUTO DIFF Collected: 05/28/2017 Status: F Source: [facility] 5:48 AM [facility] REPOSITORY TYPE CODE TESTS RESULT OUT OF REFERENCE UNITS RANGE LAB DENICE(LOINC) 50.0-75.0 % Neutrophil % 62.1 LAB LYM(LOINC) 20.0-40.0 % Lymphocyte % 23.5 LAB MON(LOINC) 2.0-13.0 % Monocyte % 6.8 LAB EO(LOINC) 0.0-6.0 % High Eosinophil % 6.3 LAB BAS(LOINC) 0.0-2.5 % Basophil % 1.3 LAB ABLYM(LOIN 0.90-4.32 10 3/mcL C) Lymphocyte, 1.70 Absolute LAB JAMES(LOINC 0.09-1.40 10 3/mcL ) Monocyte, 0.50 Absolute LAB AEOS(LOINC 0.00-0.65 10 3/mcL ) Eosinophil, 0.50 Absolute LAB ABAS(LOINC 0.00-0.27 10 3/mcL ) Basophil, 0.10 Absolute Performed By: #### GFR, BMP, CBC, ADIFF, ANEU #### [place] [address] .NEUABS Collected: 05/28/2017 Status: F Source: [facility] 5:48 AM [facility] REPOSITORY TYPE CODE TESTS RESULT OUT OF REFERENCE UNITS RANGE LAB ANEU(LOINC) 2.25-8.10 10 3/mcL Neutrophil, 4.50 Absolute Performed By: #### GFR, BMP, CBC, ADIFF, ANEU #### [place] [address] XR CHEST 2 VIEWS Observed: 05/27/2017 Status: F Source: [facility] 5:30 PM [facility] REPOSITORY ORIGINAL XR CHEST 2 VIEWS CLINICAL STATEMENT: SOB COMPARISON: 05/03/2017 FINDINGS: A left-sided triple lead ICD is unchanged. The cardiomediastinal contours are unchanged. There is extensive calcification within the visualized abdominal aorta. Median sternotomy wires are pre sent. There is no consolidation, vascular congestion, pleural effusion, or pneumothorax. Degenerative changes are seen throughout the visualized osseous structures. IMPRESSION: No acute radiographic findings. I have personally reviewed the images of this examination and agree with the resident's findings and interpretation. Interpreted By: Nay Jay Preliminary Report By: Regina Broussard DO Electronically Signed By: Nay Jay Dictated Date: 05/27/2017 6:42:24 PM Prelim Date: 05/27/2017 6:45:33 PM Sign Date: 05/27/2017 7:06:02 PM CBC Collected: 05/27/2017 Status: F Source: [facility] 3:59 PM [facility] REPOSITORY TYPE CODE TESTS RESULT OUT OF REFERENCE UNITS RANGE LAB WBC(LOINC) 4.50-10.80 10 3/mcL WBC 5.70 LAB RBCCT(LOINC 4.10-5.30 10 6/mcL ) Low RBC 2.87 LAB HGB(LOINC) 12.0-16.0 G/dL Low Hgb 9.9 LAB HCT(LOINC) 34.0-46.0 % Low Hct 28.8 LAB MCV(LOINC) 80.0-99.0 fL High MCV 100.4 LAB MCH(LOINC) 27.0-33.0 pg High MCH 34.4 LAB MCHC(LOINC) 32.0-36.0 G/dL MCHC 34.2 LAB RDW(LOINC) 11.5-15.5 % High RDW 15.8 LAB PLT(LOINC) 150-450 10 3/mcL Low Platelet 67 LAB MPV(LOINC) 6.6-10.5 fL MPV 9.5 Performed By: #### CBC, ADIFF, ANEU, BMP, GFR #### [place] [address] .AUTO DIFF Collected: 05/27/2017 Status: F Source: [facility] 3:59 PM [facility] REPOSITORY TYPE CODE TESTS RESULT OUT OF REFERENCE UNITS RANGE LAB DENICE(LOINC) 50.0-75.0 % Neutrophil % 66.6 LAB LYM(LOINC) 20.0-40.0 % Lymphocyte % 20.5 LAB MON(LOINC) 2.0-13.0 % Monocyte % 6.8 LAB EO(LOINC) 0.0-6.0 % Eosinophil % 5.1 LAB BAS(LOINC) 0.0-2.5 % Basophil % 1.0 LAB ABLYM(LOIN 0.90-4.32 10 3/mcL C) Lymphocyte, 1.20 Absolute LAB JAMES(LOINC 0.09-1.40 10 3/mcL ) Monocyte, 0.40 Absolute LAB AEOS(LOINC 0.00-0.65 10 3/mcL ) Eosinophil, 0.30 Absolute LAB ABAS(LOINC 0.00-0.27 10 3/mcL ) Basophil, 0.10 Absolute Performed By: #### CBC, ADIFF, ANEU, BMP, GFR #### [place] [address] .NEUABS Collected: 05/27/2017 Status: F Source: [facility] 3:59 [facility] REPOSITORY TYPE CODE TESTS RESULT OUT OF REFERENCE UNITS RANGE LAB ANEU(LOINC) 2.25-8.10 10 3/mcL Neutrophil, 3.80 Absolute Performed By: #### CBC, ADIFF, ANEU, BMP, GFR #### [place] [address] BMP Collected: 05/27/2017 Status: F Source: [facility] 3:59 [facility] REPOSITORY TYPE CODE TESTS RESULT OUT OF REFERENCE UNITS RANGE LAB GLU(LOINC) 82-115 mg/dL Glucose High Level 382 LAB NA(LOINC) 136-145 mEq/L Low Sodium Level 134 LAB K(LOINC) 3.5-5.0 mEq/L Potassium Level 5.0 LAB CL(LOINC) 98-110 mEq/L Chloride 101 LAB CO2(LOINC) 22-32 mEq/L CO2 26 LAB EBAL(LOINC 4.0-15.0 mEq/L ) Electrolyte Balance 7.0 LAB BUN(LOINC) 8.0-22.0 mg/dL BUN High 57.0 LAB CRE(LOINC) 0.50-1.20 mg/dL Creatinine High Lvl (s) 2.64 LAB BC(LOINC) 10.0-22.0 ratio BUN/Creatinine 21.6 Ratio LAB CA(LOINC) 8.4-10.1 mg/dL Calcium Lvl 8.9 Performed By: #### CBC, ADIFF, ANEU, BMP, GFR #### [address] [address] .GFR Collected: 05/27/2017 Status: F Source: [facility] 3:59 PM [facility] REPOSITORY TYPE CODE TESTS RESULT OUT OF REFERENCE UNITS RANGE LAB GFRAA(LOINC ml/min/1.73 ) sqm GFR 22 Citizen Of [place] Result Comment: GFR Population mean for , Non- Americans Ages 20-29 = 116 mL/min/1.73 sq.m. Ages 30-39 = 107 mL/min/1.73 sq.m. Ages 40-49 = 99 mL/min/1.73 sq.m. Ages 50-59 = 93 mL/min/1.73 sq.m. Ages 60-69 = 85 mL/min/1.73 sq.m. Ages 70+ = 75 mL/min/1.73 sq.m. Chronic Kidney Disease: Less than 60 mL/min/1.73 square meters End Stage Renal Disease: Less than 15 mL/min/1.73 square meters LAB GFRNO(LOINC) ml/min/1.73sqm GFR Non- 18 Result Comment: GFR Population mean for , Non- Americans Ages 20-29 = 116 mL/min/1.73 sq.m. Ages 30-39 = 107 mL/min/1.73 sq.m. Ages 40-49 = 99 mL/min/1.73 sq.m. Ages 50-59 = 93 mL/min/1.73 sq.m. Ages 60-69 = 85 mL/min/1.73 sq.m. Ages 70+ = 75 mL/min/1.73 sq.m. Chronic Kidney Disease: Less than 60 mL/min/1.73 square meters End Stage Renal Disease: Less than 15 mL/min/1.73 square meters Performed By: #### CBC, ADKEN, ANEU, BMP, GFR #### [address] [address] BMP Collected: 05/25/2017 Status: F Source: [facility] 9:16 AM [facility] REPOSITORY TYPE CODE TESTS RESULT OUT OF REFERENCE UNITS RANGE LAB 1547-9 80-115 mg/dL GLUCOSE High 193 LAB NA(LOINC) 136-146 mEq/L Sodium Level 139 LAB K(LOINC) 3.5-5.1 mEq/L Potassium Level 4.8 LAB CL(LOINC) 98-107 mEq/L Chloride 103 LAB CO2(LOINC) 23-31 mEq/L CO2 28 LAB EBAL(LOINC mEq/L ) Electrolyte Balance 8.0 LAB BUN(LOINC) 7.0-18.0 mg/dL BUN High 53.7 LAB CRE(LOINC) 0.6-1.2 mg/dL Creatinine High Lvl (s) 2.4 LAB BC(LOINC) 7-27 ratio BUN/Creatinine 22 Ratio LAB CA(LOINC) 8.4-10.2 mg/dL Calcium Lvl 9.5 Performed By: #### BMP, GFR #### [address] [address] .GFR Collected: 05/25/2017 Status: F Source: [facility] 9:16 AM [facility] REPOSITORY TYPE CODE TESTS RESULT OUT OF REFERENCE UNITS RANGE LAB GFRAA(LOINC ml/min/1.73 ) sqm GFR 24 Citizen [place] Result Comment: GFR Population mean for , Non- Americans Ages 20-29 = 116 mL/min/1.73 sq.m. Ages 30-39 = 107 mL/min/1.73 sq.m. Ages 40-49 = 99 mL/min/1.73 sq.m. Ages 50-59 = 93 mL/min/1.73 sq.m. Ages 60-69 = 85 mL/min/1.73 sq.m. Ages 70+ = 75 mL/min/1.73 sq.m. Chronic Kidney Disease: Less than 60 mL/min/1.73 square meters End Stage Renal Disease: Less than 15 mL/min/1.73 square meters LAB GFRNO(LOINC) ml/min/1.73sqm GFR Non- 20 Result Comment: GFR Population mean for , Non- Americans Ages 20-29 = 116 mL/min/1.73 sq.m. Ages 30-39 = 107 mL/min/1.73 sq.m. Ages 40-49 = 99 mL/min/1.73 sq.m. Ages 50-59 = 93 mL/min/1.73 sq.m. Ages 60-69 = 85 mL/min/1.73 sq.m. Ages 70+ = 75 mL/min/1.73 sq.m. Chronic Kidney Disease: Less than 60 mL/min/1.73 square meters End Stage Renal Disease: Less than 15 mL/min/1.73 square meters Performed By: #### MANJU, GFR #### [address] [place] [address] [place], [place] [address] ALLERGIES ALLERGIES DATE TYPE / CODE NAME / CODE REACTION SEVERITY SOURCE 04/12/2018 Drug esomeprazole/I98528 Unknown Unknown Pedro Allergy/416 8918(RXNORM) [facility] [id number]([facility] ED CT) Repository 07/31/2016 DRUG ESOMEPRAZOLE ITCHING [facility] INGREDI/419 [facility] 082689([facility] ED CT) ENCOUNTERS ENCOUNTERS ADMIT/DISCHARGE ACCOUNT NUMBER ADMITTING ENCOUNTER LOCATION SOURCE CLASS 05/09/2018/05/09/19 [id number] Ambulatory BBuilding:CHINO Sierra[address] Repository 05/09/2018/05/09/19 [id number] Ambulatory BBuilding:CHINO Warner[address] Repository 04/20/2018/04/20/20 [id number] Emergency BBuilding:VANDA Hammonds [address] [place] [address] Repository 04/13/2018/04/13/20 [id number] Ambulatory [address] [facility] m: [id number] 04/06/2018/04/06/20 [id number] Ambulatory [address] ding:[facility] Repository 03/16/2018 [id number] Ambulatory [facility] ding:[facility] Repository 02/25/2018/02/26/20 [id number] Ambulatory [address] ding:[facility] Repository 02/18/2018/02/19/20 [id number] Ambulatory [address] ding:[facility] Repository 02/11/2018/02/12/20 [id number] Ambulatory [address] ding:[facility] Repository 02/04/2018/02/05/20 [id number] Ambulatory [address] ding:[facility] Repository 01/31/2018/02/01/20 [id number] Ambulatory WARNER Warner [facility] ding:[facility] Repository 01/28/2018/01/29/20 [id number] Ambulatory WARNER Warner [address] [facility] ding:[facility] Repository 01/26/2018/01/27/20 [id number] Ambulatory WARNER Warner [address] [facility] ding:RAD [facility] Repository 01/20/2018/01/21/20 [id number] Ambulatory WARNER Warner [address] [facility] ding:[facility] Repository 01/07/2018/01/08/20 [id number] Ambulatory WARNER Warner [address] [facility] ding:[facility] Repository 12/28/2017/12/29/19 [id number] Ambulatory WARNER Warner [address] [place] [address] ding:[facility] Repository 12/28/2017/12/29/19 [id number] Ambulatory [address] Repository 12/15/2017/12/16/19 [id number] Ambulatory WARNER Warner [address] [place] [address] ding:[facility] Repository 12/15/2017/12/16/19 [id number] Ambulatory WARNER Warner [address] [place] [address] ding:[facility] Repository 12/01/2017/12/02/19 [id number] Ambulatory WARNER Warner [address] [place] [address] ding:[facility] Repository 11/17/2017/11/18/19 [id number] Ambulatory WARNER Warner [address] [place] [address] ding:[facility] Repository 11/16/2017/11/17/19 [id number] Ambulatory WARNER Warner [address] [place] [address] ding:[facility] Repository 11/05/2017/11/09/19 [id number] BASIL Ambulatory ABuilding:SUSU Ang MD, HAYDEE Jaime URoom: Health 0340Bed: A [facility] Repository 11/04/2017/11/05/19 [id number] Ambulatory WARNER Warner [address] [place] [address] ding:[facility] Repository 10/14/2017/10/15/19 [id number] Ambulatory WARNER Warner [facility] ding:AB [facility] Repository 10/14/2017 [id number] Ambulatory BMSBuilding: Bel[place] BMS.[facility] Repository 09/17/2017/09/18/19 [id number] Ambulatory WARNER Warner [address] [facility] ding:[facility] Repository 09/06/2017/09/07/19 [id number] Ambulatory [address] Repository 09/01/2017/09/02/19 [id number] Ambulatory [address] Repository 08/23/2017/08/25/19 [id number] Ambulatory [address] Repository 08/21/2017/08/22/19 [id number] Ambulatory [address] Repository 08/19/2017/09/02/[id number] Repository 08/19/2017 [id number] [facility] Rep[facility] 08/05/2017/08/06/19 [id number] Ambulatory WARNER Warner [address] [place] [address] ding:[facility] Repository 08/01/2017/08/02/19 [id number] Emergency BBuilding:VANDA Hammonds [facility] Repository 07/26/2017/07/27/19 [id number] Emergency BBuilding:VANDA Hammonds 18 [facility] Repository 07/22/2017/07/23/19 [id number] Ambulatory AULTMANBuild Warner 18 ing:[facility] Repository 07/16/2017/07/17/19 [id number] Ambulatory [address] Repository 07/16/2017 [id number] Ambulatory [facility] Repository 07/16/2017/07/17/19 [id number] Ambulatory [address] Repository 07/13/2017/07/14/19 [id number] Ambulatory WARNER Warner [address] [facility] ding:[facility] Repository 06/18/2017/06/18/19 [id number] Ambulatory AULTMANBuild Warner 18 ing:[facility] Repository 06/09/2017/06/09/19 [id number] Ambulatory [address] ding:[facility] Repository 05/27/2017/06/07/19 [id number] BASIL Inpatient ABuilding:HAYDEE Carlson MD Encounter URoom: Health 0313Bed: A [facility] Repository 05/25/2017/05/25/19 [id number] Ambulatory [address] ding:[facility] Repository PAYERS PAYERS ENCOUNTER GUARANTOR PAYER SUBSCRIBER SOURCE 05/09/2018 KALYN L Primary KALYN [facility] MCCUMBERSDOB: Insurance:MEDICARE MCCUMBERSDOB: [facility] PART B [facility] [id number] Repository FAIR Number: ZELALEM LAZCANO MD [id number] [place] [address]Oca: [address]~N/ATel: Date:2018-05-09 - [id number] ()Tel: (000) (HP) Name:[facility] 000-0000 () [address] [address]CQ: 05/09/2018 Secondary KALYNJB Hammonds [facility] Insurance:MEDICAL MCCUMBERSDOB: [facility] [id number] Repository INSCOPolicy Number: RIKKI MASTERSON [id number] [place] [address]Nvn: Date:2018-05-09 - [id number] ()Tel: (000) Name:[address] (WP) [address], [place] [address]SJ: 05/09/2018 KALYN L Primary KALYN Pedro Hammonds [facility] MCCUMBERSDOB: Insurance:MEDICARE MCCUMBERSDOB: [facility] PART B INSCOPolicy [id number] Repository FAIR Number: RIKKI ZELALEM MASTERSON MD [id number] [place] [address]Iwf: [address]~N/ATel: Date:2018-05-09 - [id number] (HP)Tel: (000) (HP) Name:EMILY 000-0000 (WP) Administrators [place] [address], [place] [address]OO: 05/09/2018 Secondary KALYN L [facility] Insurance:MEDICAL MCCUMBERSDOB: [facility] [id number] Repository INSCOPolicy Number: RIKKI MASTERSON [id number] [place] [address]Gkw: Date:2018-05-09 - (144) [phone] (HP)Tel: (000) Name:O Phan 000-0000 (WP) [address], [place] [address]XD: 04/20/2018 KALYN L [facility] MCCUMBERSDOB: Insurance:MEDICARE [facility]: [facility] [id number] Repository FAIR Number: ZELALEM LAZCANO [place] [id number] [place] [address]Bwu: [address]~N/ATel: Date:2018-04-20 - [phone]) [phone] (HP)Tel: (000) (HP) Name[facility] 000-0000 (WP) Administrators [address] [address]QT: 04/20/2018 Secondary KALYN [facility] Insurance:[facility] MCCUMBERSDOB: [facility] [id number] Repository INSCOPolicy Number: RIKKI MASTERSON [id number] [place] [address]Vkr: Date:2018-04-20 - [id number] (HP)Tel: (000) Name:[facility]NA[facility] [address] 000[address] (WP) [address], [place] [address]TA: 04/13/2018 SIMON Hernandez Primary KALYN L [place] [id number] Insurance:MEDICARE MCCUMBERSDOB: Community FAIR PART A BPolicy Number: [id number], [place] [id number] Repository [address]Dpp: 330) Date:2018-03-22 () 04/13/2018 Secondary KALYN L Pedro Insurance:AARPPolicy MCCUMBERSDOB: Community Number: [id number] Hospital [id number] Repository Date:1890-02-51[facility] [address], [place] [address]TV: 04/13/2018 Tertiary NOT GIVENUNK [place] Insurance:SELF PAY [facility]: Effective Repository Date:2018-03-22 04/06/2018 SIMON Hernandez Primary KALYN L [place] [id number] Insurance:MEDICARE MCCUMBERSDOB: Community FAIR PART A BPolicy Number: [id number], [place] [id number] Repository [address]Lms: 330) Date:2018-03-22 () 04/06/2018 Secondary KALYN L [place] Insurance:AARPPolicy MCCUMBERSDOB: Community Number: [id number] Hospital [id number] Repository Date:5609-60-47[address]JJXLZMF, [place] [address]WT: 04/06/2018 Tertiary NOT GIVENUNK Pedro Insurance:SELF PAY [facility] Number: Effective Repository Date:2018-03-22 03/16/2018 [facility] Primary KALYN L [place] [id number] Insurance:MEDICARE MCCUMBERSDOB: Community FAIR PART A BPolicy Number: [id number], [place] [id number] Repository [address]Bdp: 330) Date:2018-03-10 () 03/16/2018 Secondary KALYN L Pedro Insurance:AARPPolicy MCCUMBERSDOB: Community Number: [id number] Hospital [id number] Repository Date:[id number], [place] [address]RC: 03/16/2018 Tertiary NOT GIVENUNK [place] Insurance:SELF PAY [facility]: Effective Repository Date:2018-03-10 02/25/2018 KALYN L Primary [facility] Insurance:MEDICARE MCCUMBERSDOB: [facility] PART BPolicy Number: [id number] Repository FAIR [id number] [place], [place] Date:2018-02-25 - [place] [address]Pgw: [address]~N/ATel: [id number] Name:PCGS (HP)Tel: (000) (HP) Administrators LLCPO 000-0000 () [address] [place] [address]JN: 02/25/2018 Secondary [facility]ALYNJB [facility]SD[facility]: [facility] HEALTH-SECONDARY [id number] Repository ONLYPolicy Number: RIKKI [facility] [id number] [place] [address]Pbx: Date:2018-02-25 - [id number] (HP)Tel: (000) Name:[facility] Box 000-0000 () [address], [place] [address]JL: 02/18/2018 KALYN L Primary [facility]: Insurance:MEDICARE MCCUMBERSDOB: [facility] PART BPolicy Number: [id number] Repository FAIR [id number] [place], [place] Date:2018-02-18 - [place] [address]Iwe: [address]Uea: ([phone]) [phone] ) [phone] Name:PCGS (HP)Tel: (000) (HP)Tel: (999) Administrators LLCPO 000-0000 (WP) [phone] (WP) [address] [place] [address]MY: 02/18/2018 Secondary [facility]YN L [facility] [id number] Repository ONLYPolicy Number: RIKKI MASTERSON [id number] [place] [address]Qcf: Date:2018-02-18 - [id number] ()Tel: (000) Name:[facility] Phan 000-0000 (WP) 364[address]Jinrudw, [place] [address]MY: 02/11/2018 [facility]YN L [facility] M[facility]SD[facility]: Insurance:[facility] PART BPolicy Number: [id number] Repository [facility] [id number] ZELALEM LAZCANO MD Date:2018-02-11 - [place] [address]Oti: [id number]: [phone] [id number] Name:EMILY (HP)Tel: (000) (HP)Tel: (999) Administrators LLCPO 000-0000 (WP) [phone] (WP) [address] [place] [address]GU: 02/11/2018 Secondary [facility] L [facility] [id number] Repository ONLYPolicy Number: RIKKI MASTERSON [id number] [place] [address]Kbf: Date:2018-02-11 - [id number] ()Tel: (000) Name:[facility] Phan 000-0000 (WP) [id number], [place] [address]QY: 02/04/2018 KALYN L Primary KALYN L [facility] MCCUMBERSDOB: Insurance:MEDICARE MCCUMBERSDOB: [facility] PART BPolicy Number: [id number] Repository [facility] [id number] [place], [place] Date:2018-02-04 [place] [address]Otm: 82851Wnr: [phone]) [id number] [phone] Name:[facility] (HP)Tel: (000) (HP)Tel: (999) Administrators LLCPO 000-0000 (WP) 999-9999 (WP) [address] [address]GksllehnzELKRIDGE, [place] [address]HQ: 02/04/2018 Secondary [facility] [id number] Repository ONLYPolicy Number: RIKKI MASTERSON [id number] [place] [address]Svy: Date:2018-02-04 - 3750-42-63Jcox ()Tel: (000) Name:WAIVER ANALYST Box 000-0000 (WP) 107981Zlwhaws, [place] [address]NL: 01/31/2018 [facility]SD[facility]: Insurance:MEDICARE MCCUMBERSDOB: [facility] PART BPolicy Number: [id number] Repository [facility] [id number] [place] Date:2018-01-31 - [place] [address]Zbt: 47869Xlb: (330) [id number] [phone] Name:[facility] ()Tel: (000) (HP)Tel: (999) Administrators LLCPO 000-0000 (WP) 999-9999 (WP) [address] [address]Ymcbkjcwj, [place] [address]OF: 01/31/2018 Secondary [facility] Insurance:[facility]: [facility] [id number] Repository ONLYPolicy Number: RIKKI MASTERSON [id number] [place] [address]Epw: Date:2018-01-31 - 0196-94-74Trlr (HP)Tel: (000) Name:CPO Chisholm 000-0000 () 769247Ibwktoc, [place] [address]KF: 01/28/2018 KALYN L Primary [facility]YN [facility]: Insurance:MEDICARE MCCUMBERSDOB: [facility] PART BPolicy Number: [id number] Repository [facility] [id number], [place] Date:2018-01-28 - [place] [address]Ezj: 069[address]Anc: [phone]) [phone] [phone] Name:PC[facility] (HP)Tel: (000) (HP)Tel: (999) Administrators LLCPO 000-0000 (WP) 999-9999 (WP) [address] [place] [address]FW: 01/28/2018 Secondary KALYN [facility] Health Insurance:[facility]ENTERUMBERSDOB: [facility] HEALTH-SECONDARY [id number] Repository ONLYPolicy Number: [facility] [id number] [place] [address]Blb: Date:2018-01-28 - 3107-51-15Faii (HP)Tel: (000) Name:CPO hCisholm 000-0000 () 477[address]Kfsnuoe, [place] [address]HB: 01/26/2018 KALYN L Primary [facility]SDOB: Insurance:MEDICARE MCCUMBERSDOB: [facility] PART BPolicy Number: [id number] Repository [facility] [id number], [place] Date:2018-01-26 [place] [address]Xbe: 266[address]Zsi: (330) [id number] [phone] Name:PCGS (HP)Tel: (000) (HP)Tel: (999) Administrators LLCPO 000-0000 (WP) 999-9999 (WP) [address] [place] [address]VP: 01/26/2018 Secondary [facility] Insurance:[facility]: [facility] [id number] Repository ONLYPolicy Number: RIKKI MASTERSON [id number] [place] [address]Ghw: Date:2018-01-26 - 8230-72-30Zbtt ()Tel: (000) Name:[facility] Phan 000-0000 (WP) 498828Qzzzyah, [place] [address]KD: 01/20/2018 KALYN L [facility] MCCUMBERSDOB: Insurance:MEDICARE [facility]: [facility] PART BPolicy Number: [id number] Repository [facility] [id number] ZELALEM LAZCANO MD Date:2018-01-20 - [place] [address]Sqo: 9[address]Rsg: [phone]) [phone] [phone] Name:EMILY (HP)Tel: (000) (HP)Tel: (999) Administrators LLCPO 000-0000 (WP) 999-9999 (WP) [address] [place] [address]RC: 01/20/2018 Secondary [facility] Insurance:[facility]OB: [facility] [id number] Repository ONLYPolicy Number: RIKKI MASTERSON [id number] [place] [address]Lbu: Date:2018-01-20 - 7031-79-60Xlge ()Tel: (000) Name:WAIVER ANALYSTMaria Del Rosario Chisholm 000-0000 (WP) 372459Yttmkbw, [place] [address]BO: 01/07/2018 KALYN L Primary KALYN L Warner [facility] MCCUMBERSDOB: Insurance:MEDICARE [facility] CENTERSDOB: [facility] PART BPolicy Number: [id number] Repository [facility] [id number] [place] Date:2018-01-07 - [place] [address]Ndp: 379[address]Hzf: (330) [phone] [phone] Name:[facility] (HP)Tel: (000) (HP)Tel: (999) Administrators LLCPO 000-0000 (WP) 999-9999 (WP) [address] [address]EwhrcmfzoELKRIDGE, [place] [address]ZW: 01/07/2018 Secondary [facility]: [facility] [id number] Repository ONLYPolicy Number: RIKKI MASTERSON [id number] [place] [address]Kip: Date:2018-01-07 - 6333-28-68Byxx ()Tel: (000) Name:WAIVER ANALYST Box 000-0000 (WP) 727982Gjxnzak, [place] [address]LC: 12/28/2017 [facility] HospitalSDOB: Insurance:MEDICARE MCCUMBERSDOB: [facility] PART BPolicy Number: [id number] Repository [facility] [id number] [place] Date:2017-12-28 - [place] [address]Nhg: 57691Qxu: (330) [phone] [phone] Name:[facility] ()Tel: (000) (HP)Tel: (999) Administrators LLCPO 000-0000 (WP) 999-9999 (WP) [address] [place] [address]AE: 12/28/2017 Secondary [facility] Insurance:[facility]: [facility] [id number] Repository ONLYPolicy Number: RIKKI MASTERSON [id number] [place] [address]Ult: Date:2017-12-28 - 7045-11-69Dcmt (HP)Tel: (000) Name:CPO Chisholm 000-0000 () [id number], [place] [address]XM: 12/15/2017 KALYN L Primary [facility] HospitalUM[facility]SDOB: Insurance:[facility] CITY[facility]BERSDOB: [facility] PART BPolicy Number: [id number] Repository [facility] [id number], [place] Date:2017-12-15 - [place] [address]Non: [address]Jsm: (330) [phone] [phone] Name:PCGS (HP)Tel: (000) (HP)Tel: (999) Administrators LLCPO 000-0000 (WP) 999-9999 (WP) [address] [place] [address]89[address]LC: 12/15/2017 Secondary KALYN L [facility] Insurance:[facility] CENTERUMBERSDOB: [facility] HEALTH-SECONDARY [id number] Repository ONLYPolicy Number: [facility], [id number] [place] [address]Pkl: Date:2017-12-15 - 2133-54-50Zbjp (HP)Tel: (000) Name:CPO Chisholm 000-0000 () 606946Hrvixmj, [place] [address]CG: 12/15/2017 KALYN L Primary [facility]ALYN [facility]UM[facility]SDOB: Insurance:MEDICARE MCCUMBERSDOB: [facility] PART BPolicy Number: [id number] Repository [facility] [id number], [place] Date:2017-12-15 - [place] [address]Dtv: 68[address]Vzd: (330) 3027-12-15Wegx 0211 Name:PCGS (HP)Tel: (000) (HP)Tel: (999) Administrators LLCPO 000-0000 (WP) 999-9999 (WP) [address] [place] [address]BH: 12/15/2017 Secondary [facility]: [facility] [id number] Repository ONLYPolicy Number: RIKKI MASTERSON [id number] [place] [address]Dvc: Date:2017-12-15 - 4085-34-59Hfef ()Tel: (000) Name:[facility] Phan 000-0000 (WP) 872867Xybuybc, [place] [address]LX: 12/01/2017 KALYN L Primary [facility] MCCUMBERSDOB: Insurance:MEDICARE [facility]: [facility] PART BPolicy Number: [id number] Repository [facility] [id number] ZELALEM LAZCANO MD Date:2017-12-01 - [place] [address]Dav: [address]11[address]Uks: (330) [phone] [phone] Name:EMILY (HP)Tel: (000) (HP)Tel: (999) Administrators LLCPO 000-0000 (WP) 999-9999 (WP) [address] [place] [address]YD: 12/01/2017 Secondary [facility] Insurance:[facility]: [facility] [id number] Repository ONLYPolicy Number: RIKKI MASTERSON [id number] [place] [address]Ayl: Date:2017-12-01 - 7831-12-74Jixa ()Tel: (000) Name:WAIVER ANALYSTMaria Del Rosario Chisholm 000-0000 (WP) 453929Hbejgne, [place] [address]GM: 11/17/2017 KALYN L Primary KALYN L Warner [facility] MCCUMBERSDOB: Insurance:MEDICARE [facility] CENTERSDOB: [facility] PART BPolicy Number: [id number] Repository [facility] [id number] [place] Date:2017-11-17 - [place] [address]Dzw: [address]Fwl: (330) [phone] [phone] Name:[facility] (HP)Tel: (000) (HP)Tel: (999) Administrators LLCPO 000-0000 (WP) 999-9999 (WP) [address] [address]Wmladyebt, [place] [address]VB: 11/17/2017 Secondary [facility] L [facility] Insurance:[facility]: [facility] [id number] Repository ONLYPolicy Number: RIKKI MASTERSON [id number] [place] [address]Lai: Date:2017-11-17 - 2760-52-99Ioga ()Tel: (000) Name:WAIVER ANALYST Box 000-0000 (WP) 248910Eppiqov, [place] [address]TN: 11/16/2017 [facility] L [facility]SD[facility] Insurance:MEDICARE MCCUMBERSDOB: [facility] PART BPolicy Number: [id number] Repository [facility] [id number] [place] Date:2017-11-16 - [place] [address]Bmx: 167[address]Yen: (330) 2049-20-25Pasn [phone] Name:[facility] ()Tel: (000) (HP)Tel: (999) Administrators LLCPO 000-0000 (WP) 999-9999 (WP) [address] [place] [address]RC: 11/16/2017 Secondary [facility]YN L [facility] Insurance:[facility]: [facility] [id number] Repository ONLYPolicy Number: RIKKI MASTERSON [id number] [place] [address]Fof: Date:2017-11-16 - 5611-60-32Lvkh (HP)Tel: (000) Name:CPO Chisholm 000-0000 () 444372Aulrhbt, [place] [address]DI: 11/05/2017 KALYN L Primary [facility]YN L [facility] HospitalUM[facility]SDOB: Insurance:MEDICARE MCCUMBERSDOB: [facility] PART BPolicy Number: [id number] Repository [facility] [id number], [place] Date:2016-11-07 [place] [address]Jog: 588[address]Zqd: [phone]) [phone] [phone] Name:PCGS (HP)Tel: (000) (HP)Tel: (999) Administrators LLCPO 000-0000 (WP) 999-9999 (WP) [address] [place] [address]110[address]RP: 11/05/2017 Secondary [facility]YN L [facility] Insurance:[facility] CENTERUMBERSDOB: [facility] HEALTH-SECONDARY [id number] Repository ONLYPolicy Number: [facility], [id number] [place] [address]Tto: Date:2017-11-05 - 2384-94-45Uoxb (HP)Tel: (000) Name:CPO Chisholm 000-0000 () 079820Kpehvmi, [place] [address]ZJ: 11/04/2017 KALYN L Primary [facility]ALYN [facility]UM[facility]SDOB: Insurance:MEDICARE MCCUMBERSDOB: [facility] PART BPolicy Number: [id number] Repository [facility] [id number], [place] Date:2017-11-04 [place] [address]Rpa: [address]Gph: (330) [id number] [phone] Name:PCGS (HP)Tel: (000) (HP)Tel: (999) Administrators LLCPO 000-0000 (WP) 999-9999 (WP) [address] [place] [address]CN: 11/04/2017 Secondary [facility]YN L [facility] Insurance:[facility]ATION HOSPITALOB: [facility] [id number] Repository ONLYPolicy Number: RIKKI MASTERSON [id number] [place] [address]Jax: Date:2017-11-04 - 0187-57-56Geca ()Tel: (000) Name:[facility] Box 000-0000 (WP) 876515Nljhmzc, [place] [address]YY: 10/14/2017 KALYN L Primary [facility] MCCUMBERSDOB: Insurance:MEDICARE [facility] CITY[facility]BERSDOB: [facility] PART BPolicy Number: [id number] Repository [facility] [id number] ZELALEM LAZCANO MD Date:2017-10-14 - [place] [address]Nwq: [address]Yzv: (330) [phone] [phone] Name:EMILY ()Tel: (000) (HP)Tel: (999) Administrators LLCPO 000-0000 (WP) 999-9999 (WP) [address] [place] [address]XX: 10/14/2017 Secondary [facility] L [facility] Insurance:[facility]: [facility] [id number] Repository ONLYPolicy Number: RIKKI MASTEROSN [id number] [place] [address]Nxe: Date:2017-10-14 - 1842-60-59Foxp ()Tel: (000) Name:[facility] Phan 000-0000 (WP) 202295Bimmrnf, [place] [address]GE: 10/14/2017 [place] Primary KALYN Belk [id number] Insurance:HUMANA MCCUMBERSDOB: [facility] [employer] MEDICARE PPOPolicy [id number] [place], [place] Number: Repository [address]Xxe: 330 [id number] [phone] (HP) Date:4009-12-07LU [address] [place] [address]XO: 10/14/2017 Secondary NOT GIVENUNK Pedro Insurance:SELF PAY [facility] Number: Effective Repository Date:2017-09-23 09/17/2017 KALYN L Primary KALYN Pedro [facility] MCCUMBERSDOB: Insurance:MEDICARE MCCUMBERSDOB: [facility] PART BPolicy Number: [id number] Repository FAIR [id number] [place] Date:2017-09-17 - [place] [address]Vlj: [address]17[address]Tvs: [phone]) 4549-47-15Oaxx [phone] Name:[facility] (HP)Tel: (000) ()Tel: (999) [facility] LLCPO 000-0000 (WP) [id number] (WP) [address] [place] [address]40[address]TZ: 09/17/2017 Secondary KALYN [facility] MCCUMBERSDOB: [facility] HEALTH-SECONDARY [id number] Repository ONLYPoly Number: RIKKI [facility] [id number] [place] [address]Whn: Date:2017-09-17 - 3018-16-59Jbra ()Tel: (000) Name:WAIVER ANALYST Box 000-0000 (WP) 872536Yzjbmcg, [place] [address]KO: 08/19/2017 KALYN L Primary KALYN Hammonds [facility] CenterUMBERSDOB: Insurance:MEDICARE MCCUMBERSDOB: [facility] PART BPolicy Number: [id number] Repository FAIR [id number] [place] Date:2017-08-16 [place] [address]Udq: [address]Lml: [phone] 1354-85-14Akfg [phone] Name:[facility] (HP)Tel: (000) (HP)Tel: (999) Administrators LLCPO 000-0000 (WP) 999-9999 (WP) Box JACKI Khan [address]GP: 08/19/2017 Secondary KALYN Pedro [facility] Insurance:[facility]: [facility] [id number] Repository ONLYPolicy Number: RIKKI MASTERSON [id number] [place] [address]Hda: Date:2017-08-16 - [phone] (HP)Tel: (000) Name:[facility] Phan 000-0000 (WP) 828228Xwqhazz, [place] [address]EZ: 08/05/2017 [facility]YN L [facility] HospitalSDOB: Insurance:MEDICARE MCCUMBERSDOB: [facility] PART BPolicy Number: [id number] Repository RIKKI [id number] JU [place]OH[place]SF[place], [place] Date:2017-08-03 - [place] [address]Lmc: [address]Whk: (330) 2685-68-70Xmvv [phone] Name:[facility] (HP)Tel: (000) (HP)Tel: (999) Administrators LLCPO 000-0000 (WP) 999-9999 (WP) Box JACKI Khan [address]KX: 08/05/2017 Secondary KALYN Pedro [facility] Insurance:[facility]: [facility] [id number] Repository ONLYPolicy Number: RIKKI MASTERSON [id number] [place] [address]Ctu: Date:2017-08-03 - 7044-20-54Arup (HP)Tel: (000) Name:[facility] Phan 000-0000 (WP) 440845Vbuxtgs, [place] [address]CA: 08/01/2017 KALYN L Primary [facility]ALYN L [facility] MCCUMBERSDOB: Insurance:MEDICARE MCCUMBERSDOB: [facility] PART BPolicy Number: [id number] Repository [facility] [id number], [place] Date:2017-08-01 [place] [address]Mpi: 59[address]Ghs: 330 [id number] [phone] Name:[facility] ()Tel: (000) (HP)Tel: (999) Administrators LLCPO 000-0000 (WP) 999-9999 (WP) [address] [address]Vjskixarw, [place] [address]YS: 08/01/2017 Secondary [facility]YN L [facility] Insurance:[facility]: [facility] [id number] Repository ONLYPolicy Number: [facility] [id number] [place] [address]Iyp: Date:2017-08-01 - 1607-35-56Eodl (HP)Tel: (000) Name:WAIVER ANALYST Box 000-0000 (WP) 865559Bdqzcrh, [place] [address]CN: 07/26/2017 KALYN L Primary KALYN L Warner [facility] CenterUMBERSDOB: Insurance:[facility]ICARE [facility]SD[facility]: [facility] PART BPolicy Number: [id number] Repository [facility] [id number], [place] Date:2017-07-26 [place] [address]Fxe: 97[address]Djl: 330 8081-60-29Lhvd ) [phone] Name:[facility] ()Tel: (000) (HP)Tel: (999) Administrators LLCPO 000-0000 (WP) 999-9999 (WP) [address] [address]Ybmrnonbu, [place] [address]FI: 07/26/2017 Secondary [facility]ALYN L [facility] Insurance:[facility] HOSPITALOB: [facility] [id number] Repository ONLYPolicy Number: RIKKI MASTERSON [id number] [place] [address]Alx: Date:2017-07-26 - 8405-52-77Vjil (HP)Tel: (000) Name:CPO Chisholm 000-0000 (WP) 953715Pzpbfvw, [place] [address]KU: 07/22/2017 KALYN L Primary KALYN L [facility] HospitalUM[facility]SDOB: Insurance:MEDICARE MCCUMBERSDOB: [facility] PART BPolicy Number: [id number] Repository FAIR [id number] [place] Date:2017-07-22 - [place] [address]Foh: [address]Iou: (330) 0889-42-86Ensd ([phone] Name:[facility] (HP)Tel: (000) (HP)Tel: (999) [facility] LLCPO 000-0000 (WP) 999-9999 (WP) [address] [place] [address]PA: 07/22/2017 Secondary [facility]ALYN L [facility] Insurance:[facility] CENTERUMBERSDOB: [facility] SystemSECONDARY [id number] Repository ONLYPolicy Number: RIKKI MASTERSON [id number] [place] [address]Abi: Date:2017-07-22 - 0716-50-55Dpgu (HP)Tel: (000) Name: Box 000-0000 (WP) 429769Lwfgfzx, [place] [address]UM: 07/13/2017 KALYN L Primary [facility]YN L [facility]SD[facility]: [facility] PART BPolicy Number: [id number] Repository FAIR [id number] [place] Date:2017-07-13 - [place] [address]Sag: [address]Lnl: (330) 3449-35-41Fwsr ([phone] Name:[facility] (HP)Tel: (000) (HP)Tel: (999) Administrators LLCPO 000-0000 (WP) 999-9999 (WP) Box JACKI Khan [address]SX: 07/13/2017 Secondary [facility]YN L [facility] Insurance:[facility]: [facility] HEALTH-SECONDARY [id number] Repository ONLYPolicy Number: RIKKI MASTERSON [id number] [place] [address]Zea: Date:2017-07-13 - 1872-20-51Zevh (HP)Tel: (000) Name:[facility] Box 000-0000 (WP) 475437Xdshltz, [place] [address]MO: 06/18/2017 KALYN L Primary KALYN [facility] HospitalSDOB: Insurance:MEDICARE MCCUMBERSDOB: [facility] PART BPolicy Number: [id number] Repository [facility] [id number] JU [place]OH[place]SFORD, [place] Date:2017-06-18 - [place] [address]Mnv: [address]Uch: (330) 2872-21-49Pzkt [phone] Name:[facility] (HP)Tel: (000) (HP)Tel: (999) Administrators LLCPO 000-0000 (WP) 999-9999 (WP) Box JACKI Khan [address]JI: 06/18/2017 Secondary [facility]YN L [facility] Insurance:[facility] [id number] Repository Number: RIKKI MASTERSON [id number] [place] [address]Gcf: Date:2017-06-18 - 4173-82-69Smez (HP)Tel: (000) Name:[facility] Box 000-0000 (WP) 449669Ujvdwku, [place] [address]DM: 06/09/2017 KALYN L Primary KALYN L [facility] MCCUMBERSDOB: Insurance:MEDICARE MCCUMBERSDOB: [facility] PART BPolicy Number: [id number] Repository [facility] [id number], [place] Date:2017-06-09 - [place] [address]Gcp: 369[address]Lsp: (330) [phone] [phone] Name:[facility] (HP)Tel: (000) (HP)Tel: (999) Administrators LLCPO 000-0000 (WP) [phone] (WP) [address] [place] [address]37[address]GX: 06/09/2017 Secondary KALYN L [facility] Insurance:[facility] MCCUMBERSDOB: [facility] [id number] Repository Number: [facility] [id number] [place] [address]Ony: Date:2017-06-09 - 2888-33-69Rglo ()Tel: (000) Name:WAIVER ANALYST Box 000-0000 (WP) 408800Oordxvw, [place] [address]SC: 05/27/2017 KALYN L Primary KALYN L [facility] MCCUMBERSDOB: Insurance:MEDICARE [facility] CITYUMBERSDOB: [facility] PART APolicy Number: [id number] Repository [facility] [id number], [place] Date:2017-05-27 - [place] [address]Bcu: [address]Bql: (330) 7767-74-04Civc ) [phone] Name:[employer] (HP)Tel: (000) (HP)Tel: (999) [address] 000-0000 (WP) 999-9999 (WP) 447954IbsgpfjyDEPORT[place] [address]AE: 05/27/2017 Secondary [facility]YN L [facility] Insurance:MEDICARE MCCUMBERSDOB: [facility] PART BPolicy Number: [id number] Repository [id number] RIKKI MASTERSON, Date:2017-05-27 - [place] [address]Jzv: 3741-42-61Dedi Name:[facility] ()Tel: (000) Administrators LLCPO 000-0000 (WP) [address] [place] [address]76[address]FB: 05/27/2017 Tertiary [facility]ALYN L [facility] Insurance:[facility]OB: [facility] [id number] Repository Number: RIKKI MASTERSON [id number] [place] [address]Rpv: Date:2017-05-27 - 5875-90-20Guhc (HP)Tel: (000) Name:[facility] Phan 000-0000 (WP) 768230Hbhmjye, [place] [address]UR: 05/25/2017 KALYN L Primary [facility]:MEDICARE [facility]OB: [facility] PART BPolicy Number: [id number] Repository [facility] [id number] RIKKI MASTERSON [place] Date:2017-05-25 - [place] [address]Wsh: [id number]: [phone] Name:[facility] ()Tel: (000) (HP)Tel: ([phone]) Administrators LLCPO 000-0000 (WP) [id number] (WP) [address] [place] [address]MY: 05/25/2017 Secondary KALYN L [facility] Insurance:[facility]: [facility] [id number] Repository Number: RIKKI MASTERSON [id number] [place] [address]Ike: Date:2017-05-25 - [id number] (HP)Tel: (000) Name:[facility] Box 000-0000 (WP) [id number], [place] [address]GD:
== END 2018-04-06 15:28 | disposition home or self-care (01) ==
LOC: CLSP 08:30
PROVIDERS: Referring Provider Surgery Vascular Surgery; Visit Provider Surgery Vascular Surgery
DX: I70.235 Atherosclerosis of native arteries of right leg with ulceration of other part of foot (principal); I70.234 Atherosclerosis of native arteries of right leg with ulceration of heel and midfoot; E07.9 Disorder of thyroid, unspecified; K76.9 Liver disease, unspecified; B19.20 Unspecified viral hepatitis C without hepatic coma; N28.9 Disorder of kidney and ureter, unspecified; I11.9 Hypertensive heart disease without heart failure; I25.2 Old myocardial infarction; D64.9 Anemia, unspecified; E11.9 Type 2 diabetes mellitus without complications; Z95.1 Presence of aortocoronary bypass graft; Z79.4 Long term (current) use of insulin; Z79.82 Long term (current) use of aspirin; Z79.01 Long term (current) use of anticoagulants; Z79.899 Other long term (current) drug therapy; Z87.891 Personal history of nicotine dependence
CPT/HCPCS: 36245; 36415; 37224; 75710; 76937; 80069; 82962; 85027; 99152; 99153; J7040; Q9967; A4216; C1725; C1760; C1769; C1887; C1894

== ENCOUNTER 2018-04-13 08:26 | Day surgery (SDC) | payer MEDICARE, OTHER, SELFPAY ==
[2018-04-12 07:55] VITALS: BMI 41.1
[2018-04-13] VITALS (7 sets, daily range): BP systolic 107–118; BP diastolic 45–54; PULSE 67–71; RESP 12–16; TEMP 36.5–37; O2SAT 95–99
[2018-04-13 08:44] LABS: Hematocrit 30.1 % (37-47); Hemoglobin 9.6 g/dl (12.0-15.0); Mean Corp Hgb Conc 31.9 g/gl (32-36); Mean Corpuscular Volume 100.3 fL (81-99); Mean Platelet Vol. 11.4 fl (6.2-12.0); Platelet Count 70 K/mm3 (150-450); RBC Distribution Width CV 14.1 % (11.6-14.6); RBC Distribution Width SD 48.9 fl (35.1-43.9); White Blood Count 5.4 K/mm3 (4.4-11.0)
[2018-04-13 08:45] LABS: Scan Indicated on CBC? Y/N NO
[2018-04-13 08:58] LABS: Albumin, Serum 3.2 g/dL (3.2-5.0); BUN 67 mg/dL (7-18); BUN/Creat Ratio 24.4 RATIO (10-20); Calcium,Total 9.1 mg/dL (8.5-10.1); Chloride 98 mmol/L (98-107); Creatinine, Serum 2.75 mg/dL (0.55-1.02); EST Glomerular Filtration Rate 18 mL/min (>60); Est Glom Filt Rate - Afr Amer 22 mL/min (>60); Estimated Creatinine Clearance 17.14 ml/min; Glucose 349 mg/dL (74-106); Phosphorus 4.5 mg/dL (2.5-4.9); Potassium 5.1 mmol/L (3.5-5.1); Sodium Level 138 mmol/L (136-145)
--- NOTE | 2018-04-13 11:42 | OP.PCM_ITS ---
Problem List (1) PAD (peripheral artery disease) Status: Acute Report of Operation Date of Procedure: 04/13/18 Pre-Operative Diagnosis: PAD Post-Operative Diagnosis: The same Surgery/Procedure Performed:: 1. Ultrasound-guided access retrograde right common femoral artery. 2. Left lower extremity angiogram with a total of 13 cc of dye used. Catheter placed past the third order into the popliteal artery. 3. Balloon angioplasty of the popliteal to the stent that is in the proximal popliteal to SFA, with a 4 mm balloon and then a 4 x 150 drug-coated balloon. 4. Closure with VASC ANANYA Type of Anesthesia:: Sedation,Conscious Description of Procedure: Patient brought to the [employer]. Underwent the appropriate timeout consent. Underwent sedation. He was prepped and draped in a sterile fashion. We did ultrasound-guided access retrograde in the right common femoral artery and put in a 6 [place] sheath and then gave 5000 units of heparin. We got up and over the bifurcation switch to a quick cross catheter. We then imaged from the left external iliac artery showing through the external cautery down through the common femoral profunda was widely patent. The SFA was widely patent into the stent, the stent was from the distal SFA to the proximal popliteal. This appeared to be fairly patent with no significant stenosis noted. The mid popliteal had a near subtotal occlusion. Below this there is good flow in the distal popliteal into the anterior tibial and tibial peroneal trunk. We did not image below this to try to salvage on dye. We knew from the duplex that the difficulty appear to be in the popliteal artery. We then switched to a stiffer wire brought and a 6 [place] sheath we then got sheath all the way down to the common femoral artery. Using a quick cross and then the wire was able to get through the area the occlusion. We confirmed we are into the [place] vessel with flow below this. We then brought in along for by 200 balloon and balloon from the distal popliteal through the entire popliteal artery, into the popliteal and SFA stent. We ballooned this for over 2 minutes. We then ballooned it with a 4 x 150 drug-coated balloon. Completion angios markedly improved with great flow through this area. We then removed out the sheath deployed a star closed with good hemostasis patient was then brought to recovery in stable condition. Sedation: Is a 67-year-old female underwent moderate sedation given by Dr. Rojelio Chowdhury. She was monitored for over 30 minutes of the procedure with EKG blood pressure and pulse ox. She was given fentanyl and Versed. See the EMR for the complete record.
[2018-04-13 15:26] LABS: Bedside Glucose 447 mg/dL (70-110)
--- NOTE | 2018-04-13 20:14 | NURSING ---
Ambulated in hallway. Right groin site assessed after ambulation. No hematoma noted.
--- OUTSIDE RECORDS SUMMARY | 2018-07-15 08:50 | XMS RPT_ITS ---
:1950 Author Organization OHIP Support Name Relationship Address Phone SIMON CAIN Unavailable [address] + [place] [address] SHERRELL CAINER Unavailable [address] + [place] [address] NAMS SIMON Unavailable [address] + [place] [address] MCCKELECHIS, SIMON Unavailable [address] + [place] [address] MCCKELECHIS, SIMON Unavailable [address] + [place] [address] NAMS, SIMON Unavailable [address] + [place] [address] NAMS, SIMON Unavailable [address] + [place] [address] R Unavailable Unavailable Unavailable NAMS, SIMON Unavailable [address] + [place] [address] R Unavailable Unavailable Unavailable FEUMBERS, SIMON Unavailable [address] + [place] [address] R Unavailable Unavailable Unavailable MCCUMBERS, SIMON Unavailable [address] + [place] [address] MCCKELECHIS, SIMON Unavailable [address] + [place] [address] MCCKELECHIS, SIMON Unavailable [address] + [place] [address] NAMS, SIMON Unavailable [address] + [place] [address] NAMS, SIMON Unavailable [address] + [place] [address] NAMS SIMON Unavailable [address] + [place] [address] MCCUMBERS, SIMON Unavailable [address] + [place] [address] MCCUMBERS, SIMON Unavailable [address] + [place] [address] MCCUMBERS, SIMON Unavailable [address] + [place] [address] MCCUMBERS, SIMON Unavailable [address] + [place] [address] MCCUMBERS, SIMON Unavailable [address] + [place] [address] MCCUMBERS, SIMON Unavailable [address] + [place] [address] MCCUMBERS, SIMON Unavailable [address] + [place] [address] MCCUMBERS, SIMON Unavailable [address] + [place] [address] MCCUMBERS, SIMON Unavailable [address] + [place] [address] MCCUMBERS, SIMON Unavailable [address] + [place] [address] MCCUMBERS, SIMON Unavailable [address] + [place] [address] MCCUMBERS, SIMON Unavailable [address] + [place] [address] MCCUMBERS, SIMON Unavailable [address] + [place] [address] MCCUMBERS, SIMON Unavailable [address] + [place] [address] MCCUMBERS, SIMON Unavailable [address] + [place] [address] MCCUMBERS, SIMON Unavailable [address] + [place] [address] MCCUMBERS, SIMON Unavailable [address] + [place] [address] MCCUMBERS, SIMON Unavailable [address] + [place] [address] MCCUMBERS, SIMON Unavailable [address] + [place] [address] MCCUMBERS, SIMON Unavailable [address] + [place] [address] MCCUMBERS, SIMON Unavailable [address] + [place] [address] MCCUMBERS, SIMNO Unavailable [address] + [place] [address] MCCUMBERS, SIMON Unavailable [address] + [place] [address] MCCUMBERS, SIMON Unavailable [address] + [place] [address] MCCUMBERS, SIMON Unavailable [address] + [place] [address] MCCUMBERS, SIMON Unavailable [address] + [place] [address] MCCUMBERS, SIMON Unavailable [address] + [place] [address] MCCUMBERS, SIMON Unavailable [address] + [place] [address] MCCUMBERS, SIMON Unavailable [address] + [place] [address] MCCUMBERS, SIMON Unavailable [address] + [place] [address] MCCUMBERS, SMION Unavailable [address] + [place] [address] R Unavailable Unavailable Unavailable MCCUMBERS, SIMON Unavailable [address] + [place] [address] MCCUMBERS, FORKS Unavailable [address] + [place] [address] MCCUMBERS, SIMON Unavailable [address] + [place] [address] MCCUMBERS, SIMON Unavailable [address] + [place] [address] MCCUMBERS, SIMON Unavailable [address] + [place] [address] MCCUMBERS, SIMON Unavailable [address] + [place] [address] MCCUMBERS, FORKS Unavailable [address] + [place] [address] MCCUMBERS, SIMON Unavailable [address] + [place] [address] MCCUMBERS, SMION Unavailable [address] + [place] [address] MCCUMBERS, SIMON Unavailable [address] + [place] [address] MCCUMBERS, SIMON Unavailable [address] + [place] [address] MCCUMBERS, SIMON Unavailable [address] + [place] [address] MCCUMBERS, SIMON Unavailable [address] + [place] [address] MCCUMBERS, SIMON Unavailable [address] + [place] [address] MCCUMBERS, SIMON Unavailable [address] + [place] [address] MCCUMBERS, SIMON Unavailable [address] + [place] [address] MCCUMBERS, SIMON Unavailable [address] + [place] [address] MCCUMBERS, SIMON Unavailable [address] + [place] [address] MCCUMBERS, SIMON Unavailable [address] + [place] [address] MCCUMBERS, SIMON Unavailable [address] + [place] [address] MCCUMBERS, SIMON Unavailable [address] + [place] [address] MCCUMBERS, SIMON Unavailable [address] + [place] [address] Care Team Providers Name Role Phone URSZULA SORENSEN, DR. CHRISSY Pretty Attending Unavailable FLORENCE BURRELL, DR. PRADHAN Primary Care Unavailable URSZULA SORENSEN, DR. CHRISSY Pretty Attending Unavailable FLORENCE BURRELL, DR. PRADHAN Primary Care Unavailable ANA GUTIERREZ MD Attending Unavailable FLORENCE BURRELL, DR. PRADHAN Primary Care Unavailable URSZULA SORENSEN, DR. CHRISSY Pretty Attending Unavailable FLORENCE BURRELL, DR. PRADHAN Primary Care Unavailable HAYDEE GRACIA MD Attending Unavailable FLORENCE DO, DR. PRADHAN Primary Care Unavailable URSZULA DAIGLE., DR. CHRISSY Pretty Attending Unavailable FLORENCE DO, DR. PRADHAN Primary Care Unavailable DAVID FARMER MD Attending Unavailable FLORENCE DO, DR. PRADHAN Primary Care Unavailable RICHARD ATKINS NP Attending Unavailable FLORENCE DO, DR. PRADHAN Primary Care Unavailable ANA GUTIERREZ MD Attending Unavailable FLORENCE DO, DR. PRADHAN Primary Care Unavailable URSZULA DAIGLE., DR. CHRISSY Pretty Attending Unavailable FLORENCE DO, DR. PRADHAN Primary Care Unavailable SHAHLA Olvera Attending Unavailable FLORENCE DO, DR. PRADHAN Primary Care Unavailable PARI DAIGLE., DR. MCNEILL Attending Unavailable FLORENCE DO, DR. PRADHAN Primary Care Unavailable HAYDEE GRACIA MD Admitting Unavailable HAYDEE GRACIA MD Attending Unavailable FLORENCE DO, DR. PRADHAN Primary Care Unavailable HAYDEE GRACIA MD Consulting Unavailable STEPHEN HOLLINGSWORTH MD Consulting Unavailable FLORENCE DO, DR. PRADHAN Consulting Unavailable ANA GUTIERREZ MD Consulting Unavailable HAYDEE GRACIA MD Attending Unavailable FLORENCE DO, DR. PRADHAN Primary Care Unavailable RICHARD ATKINS NP Attending Unavailable FLORENCE DO, DR. PRADHAN Primary Care Unavailable URSZULA DAIGLE., DR. CHRISSY Pretty Attending Unavailable FLORENCE DO, DR. PRADHAN Primary Care Unavailable HAYDEE GRACIA MD Attending Unavailable FLORENCE DO, DR. PRADHAN Primary Care Unavailable HAYDEE GRACIA MD Attending Unavailable FLORENCE DO, DR. PRADHAN Primary Care Unavailable FLORENCE DO, DR. PRADHAN Primary Care Unavailable WES BOYLE MD Attending Unavailable ABELINO LADD MD Consulting Unavailable GENOVEVA MANN Attending Unavailable FLORENCE DO, DR. PRADHAN Primary Care Unavailable ANDRZEJ DAIGLE., DR. DIETZ Attending Unavailable FLORENCE DO, DR. PRADHAN Primary Care Unavailable ANA GUTIERREZ MD Attending Unavailable FLORENCE DO, DR. PRADHAN Primary Care Unavailable DAVID FARMER MD Attending Unavailable JOSEMANUEL GALLEGO Primary Care Unavailable HAYDEE GRACIA MD Attending Unavailable BROWN, JOSEMANUEL Primary Care Unavailable HAYDEE GRACIA MD Admitting Unavailable LIANA DAIGLE, ANA Consulting Unavailable ANAT DAIGLE, NAS Consulting Unavailable PALOMA DAIGLE, URIAH Jaime Consulting Unavailable DARIAN DAIGLE, DAVID Consulting Unavailable HAYDEE CUETO MD Consulting Unavailable HAYDEE GRACIA MD Consulting Unavailable BROWN, JOSEMANUEL Consulting Unavailable URSZULA SORENSEN, DR. CHRISSY Pretty Attending Unavailable BROWN, JOSEMANUEL Primary Care Unavailable URSZULA SORENSEN, DR. CHRISSY Pretty Attending Unavailable FLORENCE , DR. PRADHAN Primary Care Unavailable ANA GUTIERREZ MD Attending Unavailable FLORENCE BURRELL, DR. PRADHAN Primary Care Unavailable WES BOYLE MD Attending Unavailable FLORENCE BURRELL, DR. PRADHAN Primary Care Unavailable URSZULA SORENSEN, DR. CHRISSY Pretty Attending Unavailable FLORENCE BURRELL, DR. PRADHAN Primary Care Unavailable DILMA BONILLA Attending Unavailable BROWN JOSEMANUEL Primary Care Unavailable URSZULA SORENSEN, DR. CHRISSY Pretty Attending Unavailable FLORENCE , DR. PRADHAN Primary Care Unavailable URSZULA SORENSEN, DR. CHRISSY Pretty Attending Unavailable FLORENCE DO, DR. PRADHAN Primary Care Unavailable LINWOOD SAUCEDO ([facility]) Referring Unavailable PEARSON, ZAC Attending Unavailable BROWN, JOSEMANUEL R Referring Unavailable PEARSON, ZAC Referring Unavailable SALVADOR FORRESTER Admitting Unavailable CHETNA ALFREDO Attending Unavailable SALVADOR FORRESTER Referring Unavailable JJ, CLAUDIA H Referring Unavailable CHETNA ALFREDO Referring Unavailable RENAY DOCKERY ([facility]) Referring Unavailable PEARSON, ZAC Referring Unavailable Brown, Josemanuel Attending Unavailable Brown, Josemanuel Referring Unavailable Genoveva Chowdhury Attending Unavailable Genoveva Chowdhury Referring Unavailable Mary Ramirez Primary Care Unavailable Genoveva Chowdhury Attending Unavailable Genoveva Chowdhury Referring Unavailable Mary Ramirez Primary Care Unavailable Genoveva Chowdhury Attending Unavailable Genoveva Chowdhury Referring Unavailable Mary Ramirez Primary Care Unavailable PROBLEMS PROBLEMS DATE TYPE CONDITION / CODE ATTENDING STATUS SOURCE 09/06/2017 Active Acute on chronic NA Active [facility] (congestive) heart Repository failure / I50.23(ICD-10) 09/01/2017 Active Morbid (severe) STAR[place], Active [facility] obesity due to [facility] excess calories / Repository E66.01(ICD-10) 08/19/2017 Active Fluid overload, STARLING, Active [facility] unspecified / [facility] E87.70(ICD-10) Repository 08/19/2017 Active Type 2 diabetes STAR[place]ING, Active [facility] mellitus with [facility] hyperglycemia / Repository E11.65(ICD-10) 08/19/2017 Active [employer] (current) STARLING, Active [facility] use of insulin / [facility] Z79.4(ICD-10) Repository 08/19/2017 Active Other fluid STARLING, Active [facility] overload / [facility] E87.79(ICD-10) Repository 08/19/2017 Active Type 2 diabetes STARLING, Active [facility] mellitus with [facility] unspecified Repository complications / E11.8(ICD-10) 08/31/2016 Active Chronic viral NA Active [facility] hepatitis C / [facility] B18.2(ICD-10) Repository 08/31/2016 Active Unspecified NA Active [facility] cirrhosis of liver [facility] / K74.60(ICD-10) Repository PROCEDURES PROCEDURES No Procedure Records FoundRESULTS RESULTS HGMP Collected: 05/09/2018 Status: F Source: [facility] 9:40 AM [facility] REPOSITORY TYPE CODE [...] MPV 9.5 Performed By: #### HGMP #### [address] [place], [place] [address] #### RFP, GFR, PTH, VIDH #### [address] [address] RFP Collected: 05/09/2018 Status: F Source: [facility] 9:40 AM [facility] REPOSITORY TYPE CODE TESTS RESULT [...] Level 3.5 Performed By: #### HGMP #### [address] [address] #### RFP, GFR, PTH, VIDH #### [address] [address] .GFR Collected: 05/09/2018 Status: F Source: [facility] 9:40 AM [facility] REPOSITORY TYPE CODE TESTS RESULT OUT OF REFERENCE UNITS RANGE LAB GFRAA(LOINC ml/min/1.73 ) sqm GFR 22 [place] Citizen Result Comment: GFR Population mean for , [...] square meters Performed By: #### HGMP #### [address] [address] #### RFP, GFR, PTH, VIDH #### [address] [address] PTH Collected: 05/09/2018 Status: F Source: [facility] 9:40 AM [facility] REPOSITORY TYPE CODE TESTS RESULT OUT OF REFERENCE UNITS RANGE LAB PTH(LOINC) 18.5-88.0 pg/mL High PTH, Intact 134.9 Performed By: #### HGMP #### [address] [place], [place] [address] #### RFP, GFR, PTH, VIDH #### [address] [address] VIDH Collected: 05/09/2018 Status: F Source: [facility] 9:40 AM [facility] REPOSITORY TYPE CODE TESTS RESULT OUT OF RANGE REFERENCE UNITS LAB VIDH(LOINC) ng/mL Vit. D 62 25-Hydroxy Result Comment: Interpretive Values Based on Total 25(OH)D: Severe Deficiency <20 ng/mL Mild to Moderate Deficiency 20-30 ng/mL Optimum Levels 30-100 ng/mL Toxicity Possible >100 ng/mL Performed By: #### HGMP #### [address] [address] #### RFP, GFR, PTH, VIDH #### [facility] [address] [place] [address] A1C Collected: 05/09/2018 Status: F Source: [facility] 9:40 AM [facility] REPOSITORY TYPE CODE TESTS RESULT OUT OF RANGE REFERENCE UNITS LAB A1C(LOINC) 4.5-6.2 % High Hgb A1c 7.7 Performed By: #### A1C, TSH, CMP, GFR #### [address] [address] TSH Collected: 05/09/2018 Status: F Source: [facility] 9:40 AM [facility] REPOSITORY TYPE CODE TESTS RESULT OUT OF RANGE REFERENCE UNITS LAB TSH(LOINC) 0.36-3.74 mcIU/mL TSH 0.68 Performed By: #### A1C, TSH, CMP, GFR #### [place] [address] CMP Collected: 05/09/2018 Status: F Source: [facility] 9:40 AM [facility] REPOSITORY TYPE CODE TESTS RESULT [...] By: #### A1C, TSH, CMP, GFR #### [facility] [address] [place] [address] .GFR Collected: 05/09/2018 Status: F Source: [facility] 9:40 AM [facility] REPOSITORY TYPE CODE TESTS RESULT OUT OF REFERENCE UNITS RANGE LAB GFRAA(LOINC ml/min/1.73 ) sqm GFR 22 [place] Citizen Result Comment: GFR Population mean for , [...] By: #### A1C, TSH, CMP, GFR #### [facility] [address] [place] [address] CRUR Collected: 05/09/2018 Status: F Source: [employer] [facility] 9:40 AM [facility] REPOSITORY TYPE CODE TESTS RESULT OUT OF REFERENCE UNITS RANGE LAB CRU(LOINC) 28.0-117.0 mg/dL U Creatinine 69.3 Performed By: #### CRUR, PRUR #### [facility] [address] [place] [address] PRUR Collected: 05/09/2018 Status: F Source: [facility] 9:40 AM [facility] REPOSITORY TYPE CODE TESTS RESULT OUT OF REFERENCE UNITS RANGE LAB PRU(LOINC) 0-11 mg/dL U High Protein 18 Performed By: #### CRUR, PRUR #### [facility] [address] [place] [address] XR RIBS 2 VIEWS Observed: 04/20/2018 Status: F Source: [employer] RIGHT/PA CHEST(AO) 5:49 PM [facility] REPOSITORY ORIGINAL XR RIBS 2 VIEWS RIGHT/PA [...] 04/13/2018 Status: F Source: [place] 3:20 PM [facility] REPOSITORY TYPE CODE TESTS RESULT OUT OF REFERENCE UNITS RANGE LAB L501.080 70-110 mg/dL High BEDSIDE GLU 447 Result Comment: MANAGEMENT OF PATIENT CARE PER NURSING PROTOCOL Performed By: #### L501.080 #### [facility] Point of Care [address] [place] [address] OPERATIVE REPORT Observed: 04/13/2018 Status: F Source: [place] 11:43 AM [facility] REPOSITORY [facility] Medical Records Department [address] [place] [address] Operative Report 04/13/18 1134 MR#: [id number] Acct: [id number] Name: KALYN CAIN Rep #: [id number] : 1950 67 From: Genoveva Chowdhury MD PCP: Mary Ramirez DO Status: REG [facility] Y Location: [facility] Problem List (1) PAD (peripheral artery disease) [...] Description of Procedure: Patient brought to the Project Manager/Team Coach. Underwent the appropriate timeout consent. Underwent sedation. He was prepped and draped in a sterile fashion. We did ultrasound-guided access retrograde in the right common femoral artery and put in a 6 Irish sheath and then gave 5000 units of [...] a stiffer wire brought and a 6 Irish sheath we then got sheath all the way down to the common femoral artery. Using a quick cross and then the wire was able to get through the area the occlusion. We confirmed we are into the stebbins vessel with flow below this. We then [...] F Source: [facility] NO DIFF 8:30 AM [facility] REPOSITORY TYPE CODE TESTS RESULT OUT OF [...] MPV 11.4 Performed By: #### L100.0500 #### [facility] [address] [place], [place], [address] RENAL PROFILE Collected: 04/13/2018 Status: F Source: [place] 8:30 AM [facility] REPOSITORY TYPE CODE TESTS RESULT OUT OF [...] CO2 30.0 Performed By: #### L500.3600 #### [facility] [address] [place], [address] OPERATIVE REPORT Observed: 04/06/2018 Status: F Source: [place] 11:40 AM [facility] REPOSITORY [facility] Medical Records Department [address] [place] [address] Operative Report 04/06/18 1136 MR#: [id number] Acct: [id number] Name: KALYN CAIN Rep #: [id number] : 1950 67 From: Genoveva Chowdhury MD PCP: Mary Ramirez DO Status: [facility] Y Location: [facility] Operative Report Date of Procedure: 04/06/18 Preoperative [...] a Glidewire up and then a 5 Irish sheath. We gave 3000 units of heparin. [...] We then brought in a long 6 Irish sheath. We brought in a 4 x [...] 04/06/2018 Status: F Source: [place] 10:04 AM [facility] REPOSITORY TYPE CODE TESTS RESULT OUT OF REFERENCE UNITS RANGE LAB L501.080 70-110 mg/dL Low BEDSIDE GLU 63 Result Comment: MANAGEMENT OF PATIENT CARE PER NURSING PROTOCOL Performed By: #### L501.080 #### [facility] Point of Care [address] [place] [address] BEDSIDE GLUCOSE Collected: 04/06/2018 Status: F Source: [place] 9:02 AM [facility] REPOSITORY TYPE CODE TESTS RESULT OUT OF REFERENCE UNITS RANGE LAB L501.080 70-110 mg/dL Low BEDSIDE GLU 66 Result Comment: MANAGEMENT OF PATIENT CARE PER NURSING PROTOCOL Performed By: #### L501.080 #### [facility] Point of Care [address] [place] [address] CBC-COMPLETE BLOOD CNT Collected: 04/06/2018 Status: F Source: [place] NO DIFF 5:45 AM [facility] REPOSITORY TYPE CODE TESTS RESULT OUT OF [...] MPV 11.0 Performed By: #### L100.0500 #### [facility] [address] [place], [place], [id number] RENAL PROFILE Collected: 04/06/2018 Status: F Source: [place] 5:45 AM [facility] REPOSITORY TYPE CODE TESTS RESULT OUT OF [...] CO2 30.0 Performed By: #### L500.3600 #### [facility] [address] [facility] [place], [address] ARTERIAL DUPLEX US Observed: 03/23/2018 Status: F Source: [facility] 11:47 AM [facility] REPOSITORY [facility] Cardiovascular Services [address] [place] [address] Art Duplex US Bilat Lower Ext 03/16/18 0756 MR#: [id number] Acct: [id number] Name: KALYN CAIN Rep #: [id number] : 1950 67 From: Genoveva Chowdhury MD [...] Dictated: 03/16/18 0756 Date Transcribed: 03/23/18 114 Dairy Processing Supervisor: Signed LOWER EXT ARTERIAL Observed: 03/23/2018 Status: F Source: [facility] 11:34 AM [facility] REPOSITORY [facility] Cardiovascular Services [address] [place] [address] 03/23/18 1132 MR#: [id number] Acct: [id number] Name: KALYN CAIN Rep #: [id number] : 1950 67 From: Genoveva Chowdhury MD Attending Dr: Genoveva Chowdhury MD Status: REG CLI Ordering Dr: Date: 03/23/18 Location: [facility] Sex: F C Admitted: Arterial Study - [...] Ramirez Date Dictated: 03/23/181131 Date Transcribed: 03/23/181131 Dairy Processing Supervisor: LUIS CARLOS Signed BMP Collected: 02/25/2018 Status: F Source: [facility] 10:30 AM [facility] REPOSITORY TYPE CODE TESTS RESULT [...] 9.3 Performed By: #### BMP, GFR #### [place] [address] .GFR Collected: 02/25/2018 Status: F Source: [facility] 10:30 AM [facility] REPOSITORY TYPE CODE TESTS RESULT OUT OF REFERENCE UNITS RANGE LAB GFRAA(LOINC ml/min/1.73 ) sqm GFR 24 [place] Citizen Result Comment: GFR Population mean for , [...] meters Performed By: #### MANJU, GFR #### [place] [address] BMP Collected: 02/18/2018 Status: F Source: [facility] 12:27 PM [facility] REPOSITORY TYPE CODE TESTS RESULT [...] 9.1 Performed By: #### BMP, GFR #### [address] [address] .GFR Collected: 02/18/2018 Status: F Source: [facility] 12:27 PM [facility] REPOSITORY TYPE CODE TESTS RESULT OUT OF REFERENCE UNITS RANGE LAB GFRAA(LOINC ml/min/1.73 ) sqm GFR 21 [place] Citizen Result Comment: GFR Population mean for , [...] meters Performed By: #### BMP, GFR #### [place] [address] BMP Collected: 02/11/2018 Status: F Source: [facility] 9:10 AM [facility] REPOSITORY TYPE CODE TESTS RESULT [...] 8.8 Performed By: #### BMP, GFR #### [place] [address] .GFR Collected: 02/11/2018 Status: F Source: [facility] 9:10 AM [facility] REPOSITORY TYPE CODE TESTS RESULT OUT OF REFERENCE UNITS RANGE LAB GFRAA(LOINC ml/min/1.73 ) sqm GFR 24 [place] Citizen Result Comment: GFR Population mean for , [...] meters Performed By: #### BMP, GFR #### [address] [address] BMP Collected: 02/04/2018 Status: F Source: [facility] 7:42 AM [facility] REPOSITORY TYPE CODE TESTS RESULT [...] 9.6 Performed By: #### BMP, GFR #### [address] [address] .GFR Collected: 02/04/2018 Status: F Source: [facility] 7:42 AM [facility] REPOSITORY TYPE CODE TESTS RESULT OUT OF REFERENCE UNITS RANGE LAB GFRAA(LOINC ml/min/1.73 ) sqm GFR 24 [place] Citizen Result Comment: GFR Population mean for , [...] meters Performed By: #### BMP, GFR #### [address] [address] TSH Collected: 01/31/2018 Status: F Source: [facility] 8:41 AM [facility] REPOSITORY TYPE CODE TESTS RESULT OUT OF RANGE REFERENCE UNITS LAB TSH(LOINC) 0.36-3.74 mcIU/mL TSH 0.68 Performed By: #### TSH, FT4, LIPID, CMP, GFR, A1C #### [place] [address] FT4 Collected: 01/31/2018 Status: F Source: [facility] 8:41 AM [facility] REPOSITORY TYPE CODE TESTS RESULT OUT OF RANGE REFERENCE UNITS LAB FT4(LOINC) 0.76-1.46 ng/dL Free T4 1.35 Performed By: #### TSH, FT4, LIPID, CMP, GFR, A1C #### [address] [address] LIPID Collected: 01/31/2018 Status: F Source: [facility] 8:41 AM [facility] REPOSITORY TYPE CODE TESTS RESULT [...] TSH, FT4, LIPID, CMP, GFR, A1C #### [address] [address] CMP Collected: 01/31/2018 Status: F Source: [facility] 8:41 AM [facility] REPOSITORY TYPE CODE TESTS RESULT [...] TSH, FT4, LIPID, CMP, GFR, A1C #### [address] [address] .GFR Collected: 01/31/2018 Status: F Source: [facility] 8:41 AM [facility] REPOSITORY TYPE CODE TESTS RESULT OUT OF REFERENCE UNITS RANGE LAB GFRAA(LOINC ml/min/1.73 ) sqm GFR 24 [place] Citizen Result Comment: GFR Population mean for , [...] TSH, FT4, LIPID, CMP, GFR, A1C #### [address] [address] A1C Collected: 01/31/2018 Status: F Source: [facility] 8:41 AM [facility] REPOSITORY TYPE CODE TESTS RESULT OUT OF RANGE REFERENCE UNITS LAB A1C(LOINC) 4.5-6.2 % High Hgb A1c 7.6 Performed By: #### TSH, FT4, LIPID, CMP, GFR, A1C #### [address] [address] BMP Collected: 01/28/2018 Status: F Source: [facility] 3:34 PM [facility] REPOSITORY TYPE CODE TESTS RESULT [...] 9.4 Performed By: #### BMP, GFR #### [facility] [address] [place] [address] .GFR Collected: 01/28/2018 Status: F Source: [facility] 3:34 PM [facility]ATION REPOSITORY TYPE CODE TESTS RESULT OUT OF REFERENCE UNITS RANGE LAB GFRAA(LOINC ml/min/1.73 ) sqm GFR 21 [place] Citizen Result Comment: GFR Population mean for , [...] meters Performed By: #### BMP, GFR #### [place] [address] VL ARTERIAL ABIS Observed: 01/26/2018 Status: F Source: [facility] ANKLES ONLY 8:29 AM [facility]OUNDATION REPOSITORY [...] By: Chris Tan MD Electronically Signed By: Chris Tan MD Dictated Date: 01/27/2018 8:21:12 AM Prelim Date: 01/27/2018 8:21:12 AM Sign Date: 01/27/2018 8:25:16 AM RFP Collected: 01/20/2018 Status: F Source: [facility] 11:50 AM [facility] REPOSITORY TYPE CODE [...] 3.8 Performed By: #### RFP, GFR #### [address] [address] .GFR Collected: 01/20/2018 Status: F Source: [facility] 11:50 AM [facility] REPOSITORY TYPE CODE TESTS RESULT OUT OF REFERENCE UNITS RANGE LAB GFRAA(LOINC ml/min/1.73 ) sqm GFR 19 [place] Citizen Result Comment: GFR Population mean for , [...] meters Performed By: #### RFP, GFR #### [place] [address] CRUR Collected: 01/20/2018 Status: F Source: [facility] 11:50 AM [facility] REPOSITORY TYPE CODE TESTS RESULT OUT OF REFERENCE UNITS RANGE LAB CRU(LOINC) 28.0-117.0 mg/dL U Creatinine 97.7 Performed By: #### BEV, PRUR #### [address] [address] PRUR Collected: 01/20/2018 Status: F Source: [facility] 11:50 AM [facility] REPOSITORY TYPE CODE TESTS RESULT OUT OF REFERENCE UNITS RANGE LAB PRU(LOINC) 0-11 mg/dL U High Protein 13 Performed By: #### BEV, PRUR #### [place] [address] BMP Collected: 01/07/2018 Status: F Source: [facility] 11:30 AM [facility] REPOSITORY TYPE CODE TESTS RESULT [...] 9.0 Performed By: #### BMP, GFR #### [address] [address] .GFR Collected: 01/07/2018 Status: F Source: [facility] 11:30 AM [facility] REPOSITORY TYPE CODE TESTS RESULT OUT OF REFERENCE UNITS RANGE LAB GFRAA(LOINC ml/min/1.73 ) sqm GFR 27 [place] Citizen Result Comment: GFR Population mean for , [...] meters Performed By: #### BMP, GFR #### [place] [address] MALBR Collected: 01/07/2018 Status: F Source: [facility] 11:30 AM [facility] REPOSITORY TYPE CODE TESTS RESULT OUT OF REFERENCE UNITS RANGE LAB CRU(LOINC) mg/dL U Creatinine 38.8 LAB MRUR(LOINC mcg/dL ) U Microalb 2282 LAB RMAL(LOINC 0.0-24.9 mcg/mg ) U Ratio High Alb/Cre 58.8 Performed By: #### MALBR #### [address] [address] CBC Collected: 12/28/2017 Status: F Source: [facility] 10:26 AM [facility] REPOSITORY TYPE CODE TESTS RESULT [...] Performed By: #### CBC, ADIFF, ANEU #### [address] [address] #### CMP, GFR #### [address] [address] .AUTO DIFF Collected: 12/28/2017 Status: F Source: [facility] 10:26 AM [facility] REPOSITORY TYPE CODE TESTS RESULT [...] Performed By: #### CBC, ADIFF, ANEU #### [address] [address] #### CMP, GFR #### [address] [address] .NEUABS Collected: 12/28/2017 Status: F Source: [facility] 10:26 AM [facility] REPOSITORY TYPE CODE TESTS RESULT OUT OF REFERENCE UNITS RANGE LAB ANEU(LOINC) 2.85-6.16 10 3/mcL Neutrophil, 4.40 Absolute Performed By: #### CBC, ABDIAS, ANEU #### [place] [address] [place], [place] [address] #### CMP, GFR #### [place] [address] CMP Collected: 12/28/2017 Status: F Source: [facility] 10:26 AM [facility] REPOSITORY TYPE CODE TESTS RESULT [...] Performed By: #### CBC, ADIFF, ANEU #### [address] [address] #### CMP, GFR #### [facility] [address] [place] [address] .GFR Collected: 12/28/2017 Status: F Source: [facility] 10:26 AM [facility] REPOSITORY TYPE CODE TESTS RESULT OUT OF REFERENCE UNITS RANGE LAB GFRAA(LOINC ml/min/1.73 ) sqm GFR 25 [place] Citizen Result Comment: GFR Population mean for , [...] By: #### CBC, ADIFF, ANEU #### [place] [address] [address] #### CMP, GFR #### [address] [address] US ABD RIGHT UPPER Observed: 12/28/2017 Status: F Source: [facility] 9:10 AM [facility] [place] REPOSITORY * * *Final Report* * * DATE OF EXAM: Dec 28 2017 9:10AM [facility] 1032 - US ABD RIGHT UPPER [...] the liver, likely secondary to liver cirrhosis. Dairy Processing Supervisor: GISELLE Transcribe Date/Time: Dec 28 2017 9:14A Dictated by : LAKESHIA POLK MD This examination was interpreted and the report reviewed and electronically signed by: ALKESHIA POLK MD on Dec 28 2017 9:18AM EST [id number] Observed: 12/28/2017 Status: COMPLETED Source: [place] 9:09 AM [facility] REPOSITORY O ID: [id number] Author: Isabel Hunter Rdms Service: (none) Author [...] AM CNCO Observed: 12/28/2017 Status: COMPLETED Source: [place] 12:00 AM [facility] REPOSITORY Letter Text Kalyn Cain [facility] Department of Gastroenterology Zac Pearson MD [address] [place], [place] [address] December 28, 2017 Kalyn Cain [address] [place], [place] [id number] Re: Dear Mrs. Cain: I am writing [...] MG Collected: 12/15/2017 Status: F Source: [facility] 8:38 AM [facility] REPOSITORY TYPE CODE TESTS RESULT OUT OF REFERENCE UNITS RANGE LAB MG(LOINC) 1.8-2.4 mg/dL Magnesium Lvl 2.4 Performed By: #### MG #### [place] [address] TSH Collected: 12/15/2017 Status: F Source: [facility] 8:36 AM [facility] REPOSITORY TYPE CODE TESTS RESULT OUT OF RANGE REFERENCE UNITS LAB TSH(LOINC) 0.36-3.74 mcIU/mL TSH 1.74 Performed By: #### TSH, A1C, LIPID, CMP, GFR #### [place] [address] A1C Collected: 12/15/2017 Status: F Source: [facility] 8:36 AM [facility] REPOSITORY TYPE CODE TESTS RESULT OUT OF RANGE REFERENCE UNITS LAB A1C(LOINC) 4.5-6.2 % High Hgb A1c 7.6 Performed By: #### TSH, A1C, LIPID, CMP, GFR #### [place] [address] LIPID Collected: 12/15/2017 Status: F Source: [place] 8:36 AM [facility] REPOSITORY TYPE CODE TESTS RESULT [...] #### TSH, A1C, LIPID, CMP, GFR #### [address] [address] CMP Collected: 12/15/2017 Status: F Source: [facility] 8:36 AM [facility] REPOSITORY TYPE CODE [...] #### TSH, A1C, LIPID, CMP, GFR #### [address] [address] .GFR Collected: 12/15/2017 Status: F Source: [facility] 8:36 AM [facility] REPOSITORY TYPE CODE TESTS RESULT OUT OF REFERENCE UNITS RANGE LAB GFRAA(LOINC ml/min/1.73 ) sqm GFR 23 [place] Citizen Result Comment: GFR Population mean for , [...] #### TSH, A1C, LIPID, CMP, GFR #### [address] [address] CBC Collected: 12/01/2017 Status: F Source: [facility] 8:32 AM [facility] REPOSITORY TYPE CODE TESTS RESULT [...] Performed By: #### CBC, ADIFF, ANEU #### [address] [address] #### RFP, GFR, VIDH, PTH #### [address] [address] .AUTO DIFF Collected: 12/01/2017 Status: F Source: [facility] 8:32 AM [facility] REPOSITORY TYPE CODE TESTS RESULT [...] Performed By: #### CBC, ADIFF, ANEU #### [address] [address] #### RFP, GFR, VIDH, PTH #### [address] [address] .NEUABS Collected: 12/01/2017 Status: F Source: [facility] 8:32 AM [facility] REPOSITORY TYPE CODE TESTS RESULT OUT OF REFERENCE UNITS RANGE LAB ANEU(LOINC) 2.85-6.16 10 3/mcL Neutrophil, 3.40 Absolute Performed By: #### CBC, RAYMUNDOIFF, ANEU #### [place] [address] [place], [place] [address] #### RFP, GFR, VIDH, PTH #### [address] [address] RFP Collected: 12/01/2017 Status: F Source: [facility] 8:32 AM [facility] REPOSITORY TYPE CODE TESTS RESULT [...] By: #### GIOVANNI, RAYMUNDOIFF, ANEU #### [place] [address] [address] #### RFP, GFR, VIDH, PTH #### [address] [address] .GFR Collected: 12/01/2017 Status: F Source: [facility] 8:32 AM [facility] REPOSITORY TYPE CODE TESTS RESULT OUT OF REFERENCE UNITS RANGE LAB GFRAA(LOINC ml/min/1.73 ) sqm GFR 25 [place] Citizen Result Comment: GFR Population mean for , [...] Performed By: #### ABDIAS DAVILA, ANEU #### [address] [address] #### RFP, GFR, VIDH, PTH #### [address] [address] VIDH Collected: 12/01/2017 Status: F Source: [facility] 8:32 AM [facility] REPOSITORY TYPE CODE TESTS RESULT OUT OF RANGE REFERENCE UNITS LAB VIDH(LOINC) ng/mL Vit. D 31 25-Hydroxy Result Comment: Interpretive Values Based on Total 25(OH)D: Severe Deficiency <20 ng/mL Mild to Moderate Deficiency 20-30 ng/mL Optimum Levels 30-100 ng/mL Toxicity Possible >100 ng/mL Performed By: #### ABDIAS DAVILA, ANEU #### [address] [address] #### RFP, GFR, VIDH, PTH #### [address] [address] PTH Collected: 12/01/2017 Status: F Source: [facility] 8:32 AM [facility] REPOSITORY TYPE CODE TESTS RESULT OUT OF REFERENCE UNITS RANGE LAB PTH(LOINC) 18.5-88.0 pg/mL High PTH, Intact 96.1 Performed By: #### CBC, ADIFF, ANEU #### [place] [address] [place], [place] [address] #### RFP, GFR, VIDH, PTH #### [address] [address] CRUR Collected: 12/01/2017 Status: F Source: [facility] 8:32 AM [facility] REPOSITORY TYPE CODE TESTS RESULT OUT OF REFERENCE UNITS RANGE LAB CRU(LOINC) 28.0-117.0 mg/dL U Creatinine 90.2 Performed By: #### CRUR, PRUR #### [address] [address] PRUR Collected: 12/01/2017 Status: F Source: [facility] 8:32 AM [facility] REPOSITORY TYPE CODE TESTS RESULT OUT OF REFERENCE UNITS RANGE LAB PRU(LOINC) 0-11 mg/dL U High Protein 19 Performed By: #### CRUR, PRUR #### [place] [address] CBC Collected: 11/17/2017 Status: F Source: [facility] 4:28 PM [facility] REPOSITORY TYPE CODE TESTS RESULT [...] Performed By: #### CBC, ADIFF, ANEU #### [address] [address] #### CMP, GFR #### [address] [address] .AUTO DIFF Collected: 11/17/2017 Status: F Source: [facility] 4:28 PM [facility] REPOSITORY TYPE CODE TESTS RESULT [...] Performed By: #### CBC, ADIFF, ANEU #### [address] [address] #### CMP, GFR #### [place] [address] .NEUABS Collected: 11/17/2017 Status: F Source: [facility] 4:28 [facility] REPOSITORY TYPE CODE TESTS RESULT OUT OF REFERENCE UNITS RANGE LAB ANEU(LOINC) 2.85-6.16 10 3/mcL Neutrophil, 4.10 Absolute Performed By: #### CBC, ADIFF, ANEU #### [address] [address] #### CMP, GFR #### [place] [address] CMP Collected: 11/17/2017 Status: F Source: [facility] 4:28 PM [facility] REPOSITORY TYPE CODE TESTS RESULT [...] Performed By: #### CBC, ADIFF, ANEU #### [place] [address] [place], [place] [address] #### CMP, GFR #### [place] [address] .GFR Collected: 11/17/2017 Status: F Source: [facility] 4:28 PM [facility] REPOSITORY TYPE CODE TESTS RESULT OUT OF REFERENCE UNITS RANGE LAB GFRAA(LOINC ml/min/1.73 ) sqm GFR 30 [place] Citizen Result Comment: GFR Population mean for , [...] Performed By: #### CBC, ADIFF, ANEU #### [facility] [address] [place], [place] [address] #### CMP, GFR #### [facility] [address] [place] [address] BMP Collected: 11/16/2017 Status: F Source: [facility] 8:50 AM [facility] REPOSITORY TYPE CODE [...] 9.1 Performed By: #### MANJU, GFR #### [address] [address] .GFR Collected: 11/16/2017 Status: F Source: [employer] 8:50 AM [facility] REPOSITORY TYPE CODE TESTS RESULT OUT OF REFERENCE UNITS RANGE LAB GFRAA(LOINC ml/min/1.73 ) sqm GFR 30 [place] Citizen Result Comment: GFR Population mean for , [...] meters Performed By: #### BMP, GFR #### [address] [address] CMP Collected: 11/08/2017 Status: F Source: [facility] 4:33 AM [facility] REPOSITORY TYPE CODE TESTS [...] #### CMP, GFR, CBC, ADIFF, ANEU #### [place] [address] .GFR Collected: 11/08/2017 Status: F Source: [facility] 4:33 AM [facility] REPOSITORY TYPE CODE TESTS RESULT OUT OF REFERENCE UNITS RANGE LAB GFRAA(LOINC ml/min/1.73 ) sqm GFR 34 [place] Citizen Result Comment: GFR Population mean for , [...] #### CMP, GFR, CBC, ADIFF, ANEU #### [place] [address] CBC Collected: 11/08/2017 Status: F Source: [facility] 4:33 AM [facility] REPOSITORY TYPE CODE [...] #### CMP, GFR, CBC, ADIFF, ANEU #### [address] [address] .AUTO DIFF Collected: 11/08/2017 Status: F Source: [facility] 4:33 AM [facility] REPOSITORY TYPE CODE TESTS RESULT [...] #### CMP, GFR, CBC, ADIFF, ANEU #### [place] [address] .NEUABS Collected: 11/08/2017 Status: F Source: [facility] 4:33 AM [facility] REPOSITORY TYPE CODE TESTS RESULT OUT OF REFERENCE UNITS RANGE LAB ANEU(LOINC) 2.25-8.10 10 3/mcL Neutrophil, 2.90 Absolute Performed By: #### CMP, GFR, CBC, ADIFF, ANEU #### [place] [address] TROPI Collected: 11/07/2017 Status: F Source: [facility] 9:56 AM [facility] REPOSITORY TYPE CODE TESTS RESULT [...] ECG changes may help assess possibility of HI. *Other non-acute coronary syndrome conditions such as CHF, myocarditis, pulmonary emboli, sepsis and cardiac surgery could result in myocardial damage and increased troponin levels. Performed By: #### TROPI #### [place] [address] XR CHEST 1 VIEW Observed: 11/07/2017 Status: F Source: [facility] 4:59 AM [facility] REPOSITORY ORIGINAL Clinical history: Congestive heart failure. [...] AM CBC Collected: 11/07/2017 Status: F Source: [facility] 3:56 AM [facility] REPOSITORY TYPE CODE TESTS RESULT [...] #### CBC, ADIFF, ANEU, BMP, GFR #### [place] [address] .AUTO DIFF Collected: 11/07/2017 Status: F Source: [facility] 3:56 AM [facility] REPOSITORY TYPE CODE TESTS RESULT [...] #### CBC, ADIFF, ANEU, BMP, GFR #### [place] [address] .NEUABS Collected: 11/07/2017 Status: F Source: [facility] 3:56 AM [facility] REPOSITORY TYPE CODE TESTS RESULT OUT OF REFERENCE UNITS RANGE LAB ANEU(LOINC) 2.25-8.10 10 3/mcL Neutrophil, 2.60 Absolute Performed By: #### CBC, ADIFF, ANEU, BMP, GFR #### [place] [address] BMP Collected: 11/07/2017 Status: F Source: [facility] 3:56 AM [facility] REPOSITORY TYPE CODE TESTS RESULT [...] #### CBC, ADIFF, ANEU, BMP, GFR #### [place] [address] .GFR Collected: 11/07/2017 Status: F Source: [facility] 3:56 AM [facility] REPOSITORY TYPE CODE TESTS RESULT OUT OF REFERENCE UNITS RANGE LAB GFRAA(LOINC ml/min/1.73 ) sqm GFR 31 [place] Citizen Result Comment: GFR Population mean for , [...] #### CBC, ADIFF, ANEU, BMP, GFR #### [facility] [address] [place] [address] TSH Collected: 11/07/2017 Status: F Source: [facility] 3:56 AM [facility] REPOSITORY TYPE CODE TESTS RESULT OUT OF RANGE REFERENCE UNITS LAB TSH(LOINC) 0.360-3.740 mcIU/mL TSH 1.010 Result Comment: Please note ? as of 11/07/16 new pediatric reference intervals were added for this test. Performed By: #### TSH, LIPID #### [address] [address] LIPID Collected: 11/07/2017 Status: F Source: [facility] 3:56 AM [facility] REPOSITORY TYPE CODE TESTS RESULT [...] risk Performed By: #### TSH, LIPID #### [facility] [address] [place] [address] CBC Collected: 11/06/2017 Status: F Source: [facility] 7:56 AM [facility] REPOSITORY Order Comment: cbc clotted TYPE CODE [...] #### BMP, GFR, CBC, ADIFF, ANEU #### [place] [address] .AUTO DIFF Collected: 11/06/2017 Status: F Source: [facility] 7:56 AM [facility] REPOSITORY TYPE CODE TESTS RESULT [...] #### BMP, GFR, CBC, ADIFF, ANEU #### [address] [address] .NEUABS Collected: 11/06/2017 Status: F Source: [facility] 7:56 AM [facility] REPOSITORY TYPE CODE TESTS RESULT OUT OF REFERENCE UNITS RANGE LAB ANEU(LOINC) 2.25-8.10 10 3/mcL Neutrophil, 2.90 Absolute Performed By: #### BMP, GFR, CBC, ADIFF, ANEU #### [place] [address] BMP Collected: 11/06/2017 Status: F Source: [facility] 5:44 AM [facility] REPOSITORY TYPE CODE TESTS RESULT [...] #### BMP, GFR, CBC, ADIFF, ANEU #### [address] [address] .GFR Collected: 11/06/2017 Status: F Source: [facility] 5:44 AM [facility] REPOSITORY TYPE CODE TESTS RESULT OUT OF REFERENCE UNITS RANGE LAB GFRAA(LOINC ml/min/1.73 ) sqm GFR 32 [place] Citizen Result Comment: GFR Population mean for , [...] #### BMP, GFR, CBC, ADIFF, ANEU #### [place] [address] XR CHEST 1 VIEW Observed: 11/06/2017 Status: F Source: [facility] 4:58 AM [facility] REPOSITORY ORIGINAL XR CHEST 1 VIEW 6:10 [...] AM CBC Collected: 11/05/2017 Status: F Source: [facility] 6:51 PM [facility] REPOSITORY Order Comment: Specimen Clotted. TYPE CODE [...] CMP, GFR, PBNP, CBC, ADIFF, ANEU #### [place] [address] .AUTO DIFF Collected: 11/05/2017 Status: F Source: [facility] 6:51 PM [facility] REPOSITORY TYPE CODE [...] CMP, GFR, PBNP, CBC, ADIFF, ANEU #### [place] [address] .NEUABS Collected: 11/05/2017 Status: F Source: [facility] 6:51 PM [facility] REPOSITORY TYPE CODE TESTS RESULT OUT OF REFERENCE UNITS RANGE LAB ANEU(LOINC) 2.25-8.10 10 3/mcL Neutrophil, 3.90 Absolute Performed By: #### CAION, MG, PHOS, CMP, GFR, PBNP, CBC, ADIFF, ANEU #### [place] [address] TROPI Collected: 11/05/2017 Status: F Source: [facility] 6:51 [facility] REPOSITORY TYPE CODE TESTS RESULT OUT OF [...] ECG changes may help assess possibility of HI. *Other non-acute coronary syndrome conditions such as CHF, myocarditis, pulmonary emboli, sepsis and cardiac surgery could result in myocardial damage and increased troponin levels. Performed By: #### TROPI #### [place] [address] CAION Collected: 11/05/2017 Status: F Source: [facility] 4:11 PM [facility] REPOSITORY TYPE CODE TESTS RESULT OUT OF REFERENCE UNITS RANGE LAB CAION(LOINC 1.12-1.32 mmol/L ) Low Calcium 1.05 Ionized Performed By: #### CAION, MG, PHOS, CMP, GFR, PBNP, CBC, ADIFF, ANEU #### [place] [address] MG Collected: 11/05/2017 Status: F Source: [facility] 4:11 PM [facility] REPOSITORY TYPE CODE TESTS RESULT OUT OF REFERENCE UNITS RANGE LAB MG(LOINC) 1.6-2.4 mg/dL High Magnesium Lvl 2.5 Performed By: #### CAION, MG, PHOS, CMP, GFR, PBNP, CBC, ADIFF, ANEU #### [address] [address] PHOS Collected: 11/05/2017 Status: F Source: [facility] 4:11 PM [facility] REPOSITORY TYPE CODE TESTS RESULT OUT OF REFERENCE UNITS RANGE LAB PHOS(LOINC 2.5-4.5 mg/dL ) Phosphorus 3.3 Performed By: #### CAION, MG, PHOS, CMP, GFR, PBNP, CBC, ADIFF, ANEU #### [address] [address] CMP Collected: 11/05/2017 Status: F Source: [facility] 4:11 PM [facility] REPOSITORY TYPE CODE TESTS RESULT [...] CMP, GFR, PBNP, CBC, ADIFF, ANEU #### [address] [address] .GFR Collected: 11/05/2017 Status: F Source: [facility] 4:11 PM [facility] REPOSITORY TYPE CODE TESTS RESULT OUT OF REFERENCE UNITS RANGE LAB GFRAA(LOINC ml/min/1.73 ) sqm GFR 36 [place] Citizen Result Comment: GFR Population mean for , [...] CMP, GFR, PBNP, CBC, ADIFF, ANEU #### [address] [address] PBNP Collected: 11/05/2017 Status: F Source: [facility] 4:11 PM [facility] REPOSITORY TYPE CODE TESTS RESULT OUT OF REFERENCE UNITS RANGE LAB PBNP(LOINC) 0-900 pg/mL High [facility] 4766 proBNP Result Comment: NT-proBNP results of less than 300 pg/mL effectively rules out acute congestive heart failure with 99% negative predictive value. Performed By: #### CAION, MG, PHOS, CMP, GFR, PBNP, CBC, ADIFF, ANEU #### [address] [address] TROPI Collected: 11/05/2017 Status: F Source: [facility] 4:11 PM [facility] REPOSITORY TYPE CODE TESTS RESULT [...] ECG changes may help assess possibility of HI. *Other non-acute coronary syndrome conditions such as CHF, myocarditis, pulmonary emboli, sepsis and cardiac surgery could result in myocardial damage and increased troponin levels. Performed By: #### TROPI #### [address] [address] BMP Collected: 11/04/2017 Status: F Source: [facility] 10:38 AM [facility] REPOSITORY TYPE CODE TESTS RESULT [...] Performed By: #### BMP, GFR #### [place] [id number] [place], [place] [address] .GFR Collected: 11/04/2017 Status: F Source: [facility] 10:38 AM [facility] REPOSITORY TYPE CODE TESTS RESULT OUT OF REFERENCE UNITS RANGE LAB GFRAA(LOINC ml/min/1.73 ) sqm GFR 35 [place] Citizen Result Comment: GFR Population mean for , [...] Performed By: #### BMP, GFR #### [place] [id number] [place], [place] [address] BMP Collected: 10/14/2017 Status: F Source: [facility] 12:39 PM [facility] REPOSITORY TYPE CODE TESTS [...] 9.9 Performed By: #### BMP, GFR #### [address] [address] .GFR Collected: 10/14/2017 Status: F Source: [facility] 12:39 PM [facility] REPOSITORY TYPE CODE TESTS RESULT OUT OF REFERENCE UNITS RANGE LAB GFRAA(LOINC ml/min/1.73 ) sqm GFR 27 [place] Citizen Result Comment: GFR Population mean for , [...] meters Performed By: #### BMP, GFR #### [address] [address] RFP Collected: 09/17/2017 Status: F Source: [facility] 10:19 AM [facility] REPOSITORY TYPE CODE TESTS RESULT [...] RFP, GFR, CBC, ADIFF, MORPH, ANEU #### [address] [address] #### PTH, VIDH #### [address] [address] .GFR Collected: 09/17/2017 Status: F Source: [facility] 10:19 AM [facility] REPOSITORY TYPE CODE TESTS RESULT OUT OF REFERENCE UNITS RANGE LAB GFRAA(LOINC ml/min/1.73 ) sqm GFR 33 [place] Citizen Result Comment: GFR Population mean for , [...] RFP, GFR, CBC, ADIFF, MORPH, ANEU #### [address] [address] #### PTH, VIDH #### [address] [address] CBC Collected: 09/17/2017 Status: F Source: [facility] 10:19 AM [facility] REPOSITORY TYPE CODE [...] RFP, GFR, CBC, ADIFF, MORPH, ANEU #### [address] [address] #### PTH, VIDH #### [address] [address] .AUTO DIFF Collected: 09/17/2017 Status: F Source: [facility] 10:19 AM [facility] REPOSITORY TYPE CODE TESTS RESULT [...] RFP, GFR, CBC, ADIFF, MORPH, ANEU #### [address] [address] #### PTH, VIDH #### [address] [address] .MORPH Collected: 09/17/2017 Status: F Source: [facility] 10:19 AM [facility] REPOSITORY TYPE CODE TESTS RESULT OUT OF REFERENCE UNITS RANGE LAB PLTE(LOINC ) Platelet Estimate Grt Decreased LAB ANIS(LOINC ) Anisocytosis Slight LAB POIK(LOINC ) Poik Slight LAB OVAL(LOINC ) Ovalocytes Few Performed By: #### RFP, GFR, CBC, ADIFF, MORPH, ANEU #### [address] [address] #### PTH, VIDH #### [address] [address] .NEUABS Collected: 09/17/2017 Status: F Source: [facility] 10:19 AM [facility] REPOSITORY TYPE CODE TESTS RESULT OUT OF REFERENCE UNITS RANGE LAB ANEU(LOINC) 2.85-6.16 10 3/mcL Neutrophil, 3.50 Absolute Performed By: #### RFP, GFR, CBC, ADIFF, MORPH, ANEU #### [address] [address] #### PTH, VIDH #### [place] [address] PTH Collected: 09/17/2017 Status: F Source: [facility] 10:19 AM [facility] REPOSITORY TYPE CODE TESTS RESULT OUT OF REFERENCE UNITS RANGE LAB PTH(LOINC) 18.5-88.0 pg/mL High PTH, Intact 179.9 Performed By: #### RFP, GFR, CBC, ADIFF, MORPH, ANEU #### [address] [address] #### PTH, VIDH #### [place] [address] VIDH Collected: 09/17/2017 Status: F Source: [facility] 10:19 [facility] REPOSITORY TYPE CODE TESTS RESULT OUT OF RANGE REFERENCE UNITS LAB VIDH(LOINC) ng/mL Vit. D 34 25-Hydroxy Result Comment: Interpretive Values Based on Total 25(OH)D: Severe Deficiency <20 ng/mL Mild to Moderate Deficiency 20-30 ng/mL Optimum Levels 30-100 ng/mL Toxicity Possible >100 ng/mL Performed By: #### RFP, GFR, CBC, ADIFF, MORPH, ANEU #### [address] [address] #### PTH, VIDH #### [place] [address] CRUR Collected: 09/17/2017 Status: F Source: [place] 10:19 AM [facility] REPOSITORY TYPE CODE TESTS RESULT OUT OF REFERENCE UNITS RANGE LAB CRU(LOINC) 28.0-217.0 mg/dL U Creatinine 45.7 Performed By: #### CRUR, PRUR #### [facility] [address], [place] [address] PRUR Collected: 09/17/2017 Status: F Source: [place] 10:19 AM [facility] REPOSITORY TYPE CODE TESTS RESULT OUT OF REFERENCE UNITS RANGE LAB PRU(LOINC) 0-14 mg/dL U Protein 11 Performed By: #### CRUR, PRUR #### [address], [place] [address] BASIC METABOLIC PANL Collected: 09/06/2017 Status: F Source: [place] 7:35 AM [facility] REPOSITORY TYPE CODE TESTS RESULT OUT OF REFERENCE UNITS RANGE LAB GLU 74-99 mg/dL High Glucose 338 Result Comment: The [place] Diabetes Association (ADA) provides guidance for cutoff [...] Standards of Medical Care in Diabetes 2016, [place] Diabetes Association. Diabetes Care. 2016.39(Suppl 1). LAB [...] has been calibrated to be traceable to IDMI. An eGFR <60 mL/min/1.73m2 for >3 months is consistent with chronic kidney disease. Refer to KDOQI guidelines for clinical interpretation. In patients with unstable renal function, e.g. those with acute kidney injury, the eGFR may not accurately reflect actual GFR. Performed By: #### BMP, MG1 #### [facility] [address] [place], [place] [address] MAGNESIUM Collected: 09/06/2017 Status: F Source: [place] 7:35 AM [facility] REPOSITORY TYPE CODE TESTS RESULT OUT OF REFERENCE UNITS RANGE LAB MG 1.7-2.3 mg/dL Magnesium 2.2 Performed By: #### BMP, MG1 #### [facility] [address] [place] [address] CNDS Observed: 09/01/2017 Status: COMPLETED Source: [place] 2:30 PM [facility] REPOSITORY HNO ID: [id number] Author: Renay Dockery ([facility]) Service: Cardiovascular Medicine Author Type: Nurse Practitioner Type: Discharge Summaries Filed: 09/01/2017 2:34 PM Note Text: Department of Cardiovascular Medicine Discharge Summary (Template ID [id number]) Patient Name: Kalyn Cain Patient Admission Date: 08/19/2017 Discharge Date: September 01, 2017 Attending Physician: Chetna Alfredo Primary Service: Plastic Technician/Pa, Hvi Clinical Admission Diagnosis: Hypervolemia, unspecified hypervolemia type [E87.70] Discharge Diagnosis: Hypervolemia, unspecified hypervolemia type [E87.70] Secondary Diagnoses: Patient Active Hospital Problem List: Acute on chronic combined systolic and diastolic CHF (congestive heart failure) ([facility]) (08/24/2017) CKD (chronic kidney disease) stage 4, GFR 15-29 ml/min ([facility]) (09/01/2016) Coronary artery disease involving stebbins coronary artery 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 Consults: Endocrinology Major Procedure or Operation: None [...] Time Provider Department Center 12/28/2017 8:30 AM [id number] [facility] 2 [facility] 12/31/2017 3:10 PM [id number], SAUL GASTA5 [address] 12/31/2017 3:10 PM [id number], ZAC GASTA5 [address] An appointment has been made with Dr. Gracia on September 07, 2017 at [address] [place] [address] [id number] Please call [phone] if you need to reschedule Electronically SIGNED by Licensed Independent Practitioner: Renay Dockery, RN MSN KITCHEN RUNNER.VP PROGRESS Observed: 09/01/2017 Status: COMPLETED Source: [place] 1:04 PM [facility] REPOSITORY [facility] ID: [id number] Author: Renay Dockery (Fly Rail Operator) Service: Cardiovascular Medicine Author Type: Nurse Practitioner Type: Progress Notes Filed: 09/01/2017 1:05 PM Note Text: [facility] CARDIOVASCULAR MEDICINE PROGRESS NOTE Kalyn Cain [id number] PRIMARY SERVICE: Plastic Technician/Pa, i Clinical HOSPITAL DAY: # 13 INTERVAL [...] (EGD 05/12 very small EV, on Coreg), [place] 2003 s/p CABGx3 (03/2004 SVG to Lcx, [...] D/c 09/01- follow up appointment with local needle loom operator made, in d/c instructions resume low dose BONITA-I Resume aldactone at 12.5 Will need labs by 09/06 Problem Acute On Chronic Combined Systolic and Diastolic Chf (Congestive Heart Failure) ([facility]) History: Acute decompensated systolic HF Assessment: Moderate volume overload. Dry weight 230lb. Plan: torsemide, coreg. altace, aldactone Coronary Artery Disease Involving Creek 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 Patent MCCONNELL-LAD, SVG-RPDA, SVG-OM1 Plan: ASA, coreg, lipitor Cardiac Resynchronization Therapy Defibrillator (Graduate Assistant Athletic Trainer-D) in Place History: BSX N119 COGNIS 100-D 01/05/11 Assessment: BiV pacing 100% Plan: F/U with Dr Loya Pad (Peripheral Artery Disease) ([facility]) History: Hx claudication Assessment: s/p remote LE stenting Plan: ASA, plavix Ckd (Chronic Kidney Disease) Stage 4, Gfr 15-29 Ml/Min ([facility]) History: Baseline creat 2-2.2 Assessment: CKD stage [...] uncontrolled here Plan: Follow [place]o recs [place] Acquired Hypothyroidism History: On synthroid 137mcg Assessment: TSH 1.990 Plan: Continue synthroid Portal Hypertension With Esophageal Varices (Hcc) History: 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 Renay Valentine [place] Cardi[facility] Medicine Nurse Practitioner Pager [phone] (please see below for after hours communication) 09/01/2017 1:04 PM For communication after 5 pm on weekdays and after 12 pm on weekends, please page the following: - Clinical Cardiology patients on all floors: page [phone] - Other Cardiology patients on J5 and J6: page [phone] - Other Cardiology patients on J7 and J8: page [phone] Greater than 30 minutes was spent educating patient and family on diagnosis, discharge needs, and follow up. CONSULT PROG Observed: 09/01/2017 Status: COMPLETED Source: [place] 11:46 AM [facility] REPOSITORY O ID: [id number] Author: Monica France ([facility]) Service: Endocrinology Author Type: Nurse Practitioner [...] is followed by Dr. Ana Gutierrez ( [place] weather clerk) at [facility]for her diabetes. ? ? DIABETIC COMPLICATIONS: Nephropathy: [...] prescribed by cardiology ? ?Follow up with compounding and finishing supervisor and drum puller as recommended. ? ?Patient will need follow-up at with her home weather clerk/PCP in 1-2 weeks after discharge. Prefer to follow locally - will need to call if BS running over 200 or less than 80 to PCP ? ?Diabetes Care Team Hospital Discharge Help Line: [phone] ? PATIENT EDUCATION DIABETES Patient does not need any dm discharge scripts Monica France APRN.VP NUTRITION Observed: 09/01/2017 Status: COMPLETED Source: [place] 10:15 AM [facility] REPOSITORY [facility] ID: [id number] Author: Tomas Jefferson ([place]) Service: Nutrition Therapy Author Type: Ping Pong Table Assembler Type: Nutrition Filed: 09/01/2017 10:16 AM Note [...] September 01, 2017 TIME: 10:15 AM PAGER: [phone] CBC Collected: 09/01/2017 Status: F Source: [place] 5:28 AM [facility] REPOSITORY TYPE CODE TESTS RESULT [...] Performed By: #### CBC, PT, CMP #### [facility] [address] [place], [place] [address] PROTIME Collected: 09/01/2017 Status: F Source: [place] 5:28 AM [facility] REPOSITORY TYPE CODE TESTS RESULT OUT OF RANGE REFERENCE UNITS LAB PSEC 9.7-13.0 sec PT Sec 12.0 LAB INR 0.9-1.3 PT INR 1.2 Result Comment: Vitamin K Antagonist (VKA) Therapeutic Range: INR 2 to 3 (Target INR of 2.5) Note: For patients treated with VKA drugs, such as warfarin, the [place] [employer] of Chest Physicians 2012 Guideline recommends [...] Chest 2012, 141:7S-47S Joce SMITH et al. [facility] 2017, 70: 252-289 Performed By: #### CBC, PT, CMP #### [facility] [address] [place], [place] [address] COMP METABOLIC PANEL Collected: 09/01/2017 Status: F Source: [place] 5:28 AM [facility] [place] REPOSITORY TYPE CODE TESTS RESULT OUT OF REFERENCE UNITS RANGE LAB TP 6.3-8.0 g/dL Protein, Total 7.0 LAB ALB 3.9-4.9 g/dL Low Albumin 3.3 LAB CA 8.5-10.2 mg/dL Calcium, Total 9.0 LAB TBIL 0.2-1.3 mg/dL Bilirubin, Total 0.7 LAB ALKP 32-117 U/L Alkaline Phosphatase 82 LAB AST 13-35 U/L AST 17 LAB GLU 74-99 mg/dL Glucose High 194 Result Comment: The [place] Diabetes Association (ADA) provides guidance for cutoff [...] Standards of Medical Care in Diabetes 2016, [place] Diabetes [employer]. Diabetes Care. 2016.39(Suppl 1). LAB [...] Performed By: #### CBC, PT, CMP #### [facility] [address] [place] [id number] CASE MANAGEM Observed: 08/31/2017 Status: COMPLETED Source: [place] 12:19 PM [facility] REPOSITORY HNO ID: [id number] Author: Tania Olguin Service: Care Management Author Type: (none) Type: Care Mgt Progress Note Filed: 08/31/2017 12:20 PM Note Text: CARE MANAGEMENT PROGRESS NOTE SERVICE DATE: 08/31/2017 SERVICE TIME: 12:07 PM LOS: 12 days IM letter given to patient on 08/31/17. SIGNATURE: Tania Olguin Dog Catcher PATIENT NAME: Kalyn Cain DATE: August 31, 2017 TIME: 12:19 PM PAGER/CONTACT #: [phone] PROGRESS Observed: 08/31/2017 Status: COMPLETED Source: [place] 7:41 AM [facility] REPOSITORY HNO ID: [id number] Author: Devorah Encinas (Fly Rail [employer]) Service: Cardiovascular Medicine Author Type: Nurse Practitioner Type: Progress Notes Filed: 08/31/2017 12:10 PM Note Text: [facility] CARDIOV[facility]ULAR MEDICINE PROGRESS NOTE (Template ID [id number]) Kalyn Cain [id number] PRIMARY SERVICE: Plastic Technician/Pa, Hvi Clinical HOSPITAL DAY: # 12 INTERVAL [...] [E87.70] LVEF: 37 RVEF: low normal Cards: [facility] Cath: LM 100% ostial, LCx/RCA 100% ostial. 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 Pearson note) c/b portal HTN, EV (EGD 05/12 very small EV, on Coreg), [place] 2003 s/p CABGx3 (03/2004 SVG to Lcx, [...] D/c 09/01- follow up appointment with local needle loom operator made, in d/c instructions Problem Acute On Chronic Combined Systolic and Diastolic Chf (Congestive Heart Failure) ([facility]) History: Acute decompensated systolic HF Assessment: Moderate volume overload. Dry weight 230lb. Plan: Oral torsemide, coreg. 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 Patent MCCONNELL-LAD, SVG-RPDA, SVG-OM1 Plan: ASA, coreg, lipitor Cardiac Resynchronization Therapy Defibrillator (Graduate Assistant Athletic Trainer-D) in Place History: BSX N119 COGNIS 100-D 01/05/11 Assessment: BiV pacing 100% Plan: Device check done Pad (Peripheral Artery Disease) ([facility]) History: Hx claudication Assessment: s/p remote LE stenting Plan: ASA, plavix Ckd (Chronic Kidney Disease) Stage 4, Gfr 15-29 Ml/Min ([facility]) History: Baseline creat 2-2.2 Assessment: CKD stage [...] chronic hep C (resolved) Assessment: On aldactone TICKET MARKER Plan: resume aldactone when able Obesity, Class III, BMI >= 40 E66.01 History: BMI 40.04 Assessment: Morbid obesity Plan: HH/carb controlled diet, nutrition consult Case to be discussed with Dr. Juni Encinas, [facility] Pager [phone] (please see below for after hours communication) 08/31/2017 7:41 AM For communication after 5 pm on weekdays and after 12 pm on weekends, please page the following: - Clinical Cardiology patients on all floors: page [phone] - Other Cardiology patients on J5 and J6: page [phone] - Other Cardiology patients on J7 and J8: page [phone] CONSULT PROG Observed: 08/31/2017 Status: COMPLETED Source: [place] 7:11 AM [facility] [place] REPOSITORY HNO ID: [id number] Author: Columba Mathis ([facility]) Service: Endocrinology Author Type: Nurse Practitioner [...] is followed by Dr. Ana Gutierrez ( [place] weather clerk) at [facility]?for her diabetes. ? ? DIABETIC COMPLICATIONS: Nephropathy: [...] prescribed by cardiology ? ?Follow up with compounding and finishing supervisor and drum puller as recommended. ? ?Patient will need follow-up at with her home weather clerk/PCP in 1-2 weeks after discharge. Prefer to follow locally - will need to call if BS running over 200 or less than 80 to PCP ? ?Diabetes Care Team Hospital Discharge Help Line: [phone] ? PATIENT EDUCATION DIABETES Patient does not need any dm discharge scripts for dis SIGNATURE: Columba Mathis, KITCHEN RUNNER.VP PATIENT NAME: Kalyn Cain DATE: August 31, 2017 TIME: 7:11 AM PAGER/CONTACT #: Columba Mathis, MSN, RN, ADVANCED REGISTERED NURSE-C Endocrinology Metabolic [place] Pager [phone] Inpatient Endo ADVANCED REGISTERED NURSE from 0800 to 1800 After 1800 please page Endo supervisor mainspring fabrication at ext [phone] PROTIME Collected: 08/31/2017 Status: F Source: [place] 5:28 AM [facility] REPOSITORY TYPE CODE TESTS RESULT OUT OF RANGE REFERENCE UNITS LAB PSEC 9.7-13.0 sec PT Sec 11.9 LAB INR 0.9-1.3 PT INR 1.2 Result Comment: Vitamin K Antagonist (VKA) Therapeutic Range: INR 2 to 3 (Target INR of 2.5) Note: For patients treated with VKA drugs, such as warfarin, the [place] [employer]icians 2012 Guideline recommends [...] Performed By: #### PT, CMP, CBC #### [facility] [address] [place], [place] [address] COMP METABOLIC PANEL Collected: 08/31/2017 Status: F Source: [place] 5:28 AM [facility] REPOSITORY TYPE CODE TESTS RESULT OUT OF REFERENCE UNITS RANGE LAB TP 6.3-8.0 g/dL Protein, Total 6.9 LAB ALB 3.9-4.9 g/dL Low Albumin 3.1 LAB CA 8.5-10.2 mg/dL Calcium, Total 8.8 LAB TBIL 0.2-1.3 mg/dL Bilirubin, Total 0.7 LAB ALKP 32-117 U/L Alkaline Phosphatase 79 LAB AST 13-35 U/L AST 19 LAB GLU 74-99 mg/dL Glucose High 151 Result Comment: The [place] Diabetes Association (ADA) provides guidance for cutoff [...] Standards of Medical Care in Diabetes 2016, [place] [employer]. Diabetes Care. 2016.39(Suppl 1). LAB [...] Performed By: #### PT, CMP, CBC #### [facility] [address] [place], [place] [address] CBC Collected: 08/31/2017 Status: F Source: [place] 5:28 AM [facility] REPOSITORY TYPE CODE TESTS RESULT [...] #### PT, CMP, CBC #### [facility] [address] [place], [place] [address] PT ED Observed: 08/30/2017 Status: COMPLETED Source: [place] 1:53 PM [facility] REPOSITORY HNO ID: [id number] Author: Cindi Rios ([place]) Service: Diabetes Education [...] time. PATIENT NAME: Kalyn Cain PATIENT LOCATION: [place] [address] Electronically Signed By: Cindi Rios RD CDE MPH beeper: [id number] URINALYSIS Collected: 08/30/2017 Status: F Source: [place] 1:51 PM [facility] REPOSITORY TYPE CODE TESTS RESULT OUT OF RANGE REFERENCE UNITS LAB UCOL Yellow Color Yellow LAB [facility] Clear Clarity Clear LAB UGLUC Negative mg/dL Glucose, Urine Negative LAB UBIL Negative Bilirubin, Urine Negative LAB UKET Negative Ketones, Urine Negative LAB USPG 1.005-1.030 Specific [place], Ur 1.013 LAB UHGB Negative Abnormal Hemoglobin/Blood, [...] N/A Performed By: #### UA, PRARIKA #### [facility] [address] [place] [place] [id number] PROTEIN/CREATININE RATIO Collected: Status: F Source: [place] 08/30/2017 1:51 PM [facility] REPOSITORY TYPE CODE TESTS RESULT OUT OF REFERENCE UNITS RANGE LAB UTPR 0-20 mg/dL Protein Urine 12 Random LAB UCRR 20-300 mg/dL Creatinine,Ur 109.1 ine,Ran LAB PCRAT <0.2 Protein/Creat 0.1 inine Ratio Performed By: #### UA, PRARIKA #### [facility] [address] [place], [place] [address] CASE MANAGEM Observed: 08/30/2017 Status: COMPLETED Source: [place] 12:02 PM [facility] REPOSITORY HNO ID: [id number] Author: Abelino Bennett (Rn), RN Service: Care [...] August 30, 2017 TIME: 12:02 PM PAGER/CONTACT #:[phone] PROGRESS Observed: 08/30/2017 Status: COMPLETED Source: [place] 9:07 AM [facility] REPOSITORY HNO ID: [id number] Author: Devorah Encinas ([facility]) Service: Cardiovascular Medicine Author Type: Nurse Practitioner Type: Progress Notes Filed: 08/30/2017 1:04 PM Note Text: [facility] CARDIOVASCULAR MEDICINE PROGRESS NOTE (Template ID [id number]) Kalyn Cain [id number] PRIMARY SERVICE: Plastic Technician/Pa, i Clinical HOSPITAL DAY: # 11 INTERVAL [...] (EGD 05/12 very small EV, on Coreg), [place] 2003 s/p CABGx3 (03/2004 SVG to Lcx, [...] Systolic and Diastolic Chf (Congestive Heart Failure) ([facility]) History: Acute decompensated systolic HF Assessment: Moderate volume overload. Dry weight 230lb. Warm and wet Plan: Oral torsemide, coreg. Resume altace, aldactone when able Coronary Artery Disease Involving [place] 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 Patent MCCONNELL-LAD, SVG-RPDA, SVG-OM1 Plan: ASA, coreg, lipitor Cardiac Resynchronization Therapy Defibrillator (Graduate Assistant Athletic Trainer-D) in Place History: BSX N119 COGNIS 100-D 01/05/11 Assessment: BiV pacing 100% Plan: Device check done Pad (Peripheral Artery Disease) ([facility]) History: Hx claudication Assessment: s/p remote LE [...] chronic hep C (resolved) Assessment: On aldactone TICKET MARKER Plan: resume aldactone when able Obesity, Class III, BMI >= 40 E66.01 History: BMI 40.04 Assessment: Morbid obesity Plan: HH/carb controlled diet, nutrition consult Case to be discussed with Dr. Juni Encinas, MAICOL.[facility] Pager [phone] (please see below for after hours communication) 08/30/2017 1:03 PM For communication after 5 pm on weekdays and after 12 pm on weekends, please page the following: - Clinical Cardiology patients on all floors: page [phone] - Other Cardiology patients on J5 and J6: page [phone] - Other Cardiology patients on J7 and J8: page [phone] CONSULT PROG Observed: 08/30/2017 Status: COMPLETED Source: [place] 7:35 AM [facility] REPOSITORY HNO ID: [id number] Author: Columba Mathis ([employer]) Service: Endocrinology Author Type: Nurse Practitioner Type: [...] is followed by Dr. Ana Gutierrez ( [place] weather clerk) at [facility]for her diabetes. ? ? DIABETIC COMPLICATIONS: Nephropathy: [...] prescribed by cardiology ? ?Follow up with compounding and finishing supervisor and drum puller as recommended. ? ?Patient will need follow-up at with her home weather clerk/PCP in 1-2 weeks after discharge. Prefer to follow locally ? ?Diabetes Care Team Hospital Discharge Help Line: [phone] SIGNATURE: Columba Mathis APRN.VP PATIENT NAME: Kayln Cain DATE: August 30, 2017 TIME: 7:35 AM PAGER/CONTACT #: Columba Mathis, MSN, RN, ADVANCED REGISTERED NURSE-C Endocrinology Metabolic [place] Pager [phone] Inpatient Endo ADVANCED REGISTERED NURSE from 0800 to 1800 After 1800 please page Endo supervisor mainspring fabrication at ext 126 PROTIME Collected: 08/30/2017 Status: F Source: [place] 5:24 AM [facility] REPOSITORY TYPE CODE TESTS RESULT OUT OF RANGE REFERENCE UNITS LAB PSEC 9.7-13.0 sec PT Sec 12.0 LAB INR 0.9-1.3 PT INR 1.2 Result Comment: Vitamin K Antagonist (VKA) Therapeutic Range: INR 2 to 3 (Target INR of 2.5) Note: For patients treated with VKA drugs, such as warfarin, the [place] [employer] Chest Physicians 2012 Guideline recommends [...] Chest 2012, 141:7S-47S Joce RA, et al. [facility] 2017, 70: 252-289 Performed By: #### PT, CBC, CMP #### [facility] [address] [place] [address] CBC Collected: 08/30/2017 Status: F Source: [place] 5:24 AM [facility] REPOSITORY TYPE CODE TESTS RESULT [...] Performed By: #### PT, CBC, CMP #### [facility] [address] [place], [place] [address] COMP METABOLIC PANEL Collected: 08/30/2017 Status: F Source: [place] 5:24 AM [facility] REPOSITORY TYPE CODE TESTS RESULT OUT OF REFERENCE UNITS RANGE LAB TP 6.3-8.0 g/dL Protein, Total 7.0 LAB ALB 3.9-4.9 g/dL Low Albumin 3.2 LAB CA 8.5-10.2 mg/dL Calcium, Total 8.9 LAB TBIL 0.2-1.3 mg/dL Bilirubin, Total 0.8 LAB ALKP 32-117 U/L Alkaline Phosphatase 77 LAB AST 13-35 U/L AST 18 LAB GLU 74-99 mg/dL Glucose High 153 Result Comment: The [place] Diabetes Association (ADA) provides guidance for cutoff [...] Standards of Medical Care in Diabetes 2016, [place] [employer]. Diabetes Care. 2016.39(Suppl 1). LAB [...] Performed By: #### PT, CBC, CMP #### [facility] [address] [place] [address] PROGRESS Observed: 08/29/2017 Status: COMPLETED Source: [place] 8:25 AM [facility] REPOSITORY HNO ID: [id number] Author: Devorah Encinas (Fly Rail Operator) Service: Cardiovascular Medicine Author Type: Nurse Practitioner Type: Progress Notes Filed: 08/29/2017 9:14 AM Note Text: [facility] CARDIOVASCULAR MEDICINE PROGRESS NOTE (Template ID [id number]) Kalyn Cain [id number] PRIMARY SERVICE: Plastic Technician/Pa, i Clinical HOSPITAL DAY: # 10 INTERVAL [...] (EGD 05/12 very small EV, on Coreg), [place] 2003 s/p CABGx3 (03/2004 SVG to Lcx, [...] aldactone when able Coronary Artery Disease Involving [place] 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 Patent MCCONNELL-LAD, SVG-RPDA, SVG-OM1 Plan: ASA, coreg, lipitor Cardiac Resynchronization Therapy Defibrillator (Graduate Assistant Athletic Trainer-D) in Place History: BSX N119 COGNIS 100-D [...] chronic hep C (resolved) Assessment: On aldactone TICKET MARKER Plan: resume aldactone when able Obesity, Class III, BMI >= 40 E66.01 History: BMI 40.04 Assessment: Morbid obesity Plan: HH/carb controlled diet, nutrition consult Case to be discussed with Dr. Waqar Encinas, KITCHEN RUNNER.[facility] Pager [phone] (please see below for after hours communication) 08/29/2017 8:25 AM For communication after 5 pm on weekdays and after 12 pm on weekends, please page the following: - Clinical Cardiology patients on all floors: page [phone] - Other Cardiology patients on J5 and J6: page [phone] - Other Cardiology patients on J7 and J8: page [phone] CONSULT PROG Observed: 08/29/2017 Status: COMPLETED Source: [place] 8:24 AM [facility] [place] REPOSITORY HNO ID: [id number] Author: Columba Ulloa ([facility]) Service: Endocrinology Author Type: Nurse Practitioner [...] is followed by Dr. Ana Gutierrez ( [place] weather clerk) at [facility]?for her diabetes. ? ? DIABETIC COMPLICATIONS: Nephropathy: [...] prescribed by cardiology ? ?Follow up with compounding and finishing supervisor and drum puller as recommended. ? ?Patient will need follow-up at with her home weather clerk/PCP in 1-2 weeks after discharge. Prefer to follow locally ? ?Diabetes Care Team Hospital Discharge Help Line: [phone] SIGNATURE: Columba Ulloa APRN.VP PATIENT NAME: Kalyn Cain DATE: August 29, 2017 TIME: 8:24 AM PAGER/CONTACT #: [phone] PROTIME Collected: 08/29/2017 Status: F Source: [place] 5:35 AM [facility] REPOSITORY TYPE CODE TESTS RESULT OUT OF RANGE REFERENCE UNITS LAB PSEC 9.7-13.0 sec PT Sec 11.8 LAB INR 0.9-1.3 PT INR 1.1 Result Comment: Vitamin K Antagonist (VKA) Therapeutic Range: INR 2 to 3 (Target INR of 2.5) Note: For patients treated with VKA drugs, such as warfarin, the [place] [employer]icians 2012 Guideline recommends [...] Chest 2012, 141:7S-47S Joce RA, et al. [facility] 2017, 70: 252-289 Performed By: #### PT, CBC, CMP #### [facility] [address] [place], [place] [address] CBC Collected: 08/29/2017 Status: F Source: [place] 5:35 AM [facility] REPOSITORY TYPE CODE TESTS RESULT [...] Performed By: #### PT, CBC, CMP #### [facility] [address] [place], [place] [address] COMP METABOLIC PANEL Collected: 08/29/2017 Status: F Source: [place] 5:35 AM [facility] REPOSITORY TYPE CODE TESTS RESULT OUT OF REFERENCE UNITS RANGE LAB TP 6.3-8.0 g/dL Protein, Total 7.4 LAB ALB 3.9-4.9 g/dL Low Albumin 3.4 LAB CA 8.5-10.2 mg/dL Calcium, Total 9.1 LAB TBIL 0.2-1.3 mg/dL Bilirubin, Total 0.8 LAB ALKP 32-117 U/L Alkaline Phosphatase 88 LAB AST 13-35 U/L AST 16 LAB GLU 74-99 mg/dL Glucose High 244 Result Comment: The [place] [employer] Association (ADA) provides guidance for cutoff [...] Standards of Medical Care in Diabetes 2016, [place] [employer]. Diabetes Care. 2016.39(Suppl 1). LAB [...] #### PT, CBC, CMP #### [facility] [place] [address] [place] [id number] NURSING PROG Observed: 08/28/2017 Status: COMPLETED Source: [place] 1:40 PM [facility] REPOSITORY HNO ID: [id number] Author: Chana Edgar (Rn), RN Service: (none) Author Type: Registered Nurse Type: Nursing Progress Note Filed: 08/28/2017 1:44 PM Note Text: Nursing Progress Note Patient Name: Kalyn Cain Patient Location: [address]8--15 Pt admitted to [facility]. Skin assessment performed with ROMÁN Castillo. Skin intact, old healed pressure injury noted per the pt. Pt educated on turning frequently due to her being at higher risk of developing pressure injury . This note was completed by: Chana Edgar, RN PT ED Observed: 08/28/2017 Status: COMPLETED Source: [place] 1:21 PM [facility] REPOSITORY HNO ID: [id number] Author: Mateo Ccf Service: (none) Author Type: Physician Type: Patient Education Filed: 08/28/2017 1:21 PM Note Text: [facility] Patient Education Report --------- Name: KALYN CAIN Date: 08/28/2017 Time: 1:21 PM Patient Ordered Video: Inpatient Falls from [id number] via phone number [phone] at 1:21 PM PROGRESS Observed: 08/28/2017 Status: COMPLETED Source: [place] 9:32 AM [facility] REPOSITORY HNO ID: [id number] Author: Devorah Encinas ([facility]) Service: Cardiovascular Medicine Author Type: Nurse Practitioner Type: Progress Notes Filed: 08/28/2017 2:49 PM Note Text: [facility] CARDI[facility]ASCULAR [facility]ICINE PROGRESS NOTE (Template ID [id number]) Kalyn Cain [id number] PRIMARY SERVICE: Plastic Technician/Pa, i Clinical HOSPITAL DAY: # 9 INTERVAL [...] (EGD 05/12 very small EV, on Coreg), [place] 2003 s/p CABGx3 (03/2004 SVG to Lcx, [...] aldactone when able Coronary Artery Disease Involving Creek 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 Patent MCCONNELL-LAD, SVG-RPDA, SVG-OM1 Plan: ASA, coreg, lipitor Cardiac Resynchronization Therapy Defibrillator (Graduate Assistant Athletic Trainer-D) in Place History: BSX N119 COGNIS 100-D 01/05/11 Assessment: BiV pacing 100% Plan: Device check done Pad (Peripheral Artery Disease) ([facility]) History: Hx claudication Assessment: s/p remote LE stenting Plan: ASA, plavix Ckd (Chronic Kidney Disease) Stage 4, Gfr 15-29 Ml/Min ([facility]) History: Baseline creat 2-2.2 Assessment: CKD stage [...] chronic hep C (resolved) Assessment: On aldactone TICKET MARKER Plan: resume aldactone when able Obesity, Class III, BMI >= 40 E66.01 History: BMI 40.04 Assessment: Morbid obesity Plan: HH/carb controlled diet, nutrition consult Case to be discussed with Dr. Waqar Encinas, MAICOL.VP Pager [phone] (please see below for after hours communication) 08/28/2017 2:48 PM For communication after 5 pm on weekdays and after 12 pm on weekends, please page the following: - Clinical Cardiology patients on all floors: page [phone] - Other Cardiology patients on J5 and J6: page [phone] - Other Cardiology patients on J7 and J8: page [phone] CONSULT PROG Observed: 08/28/2017 Status: COMPLETED Source: [place] 9:02 AM [facility] REPOSITORY HNO ID: [id number] Author: Columba Ulloa ([employer]) Service: Endocrinology Author Type: Nurse Practitioner Type: [...] is followed by Dr. Ana Gutierrez ( [place] weather clerk) at [facility]?for her diabetes. ? ? DIABETIC COMPLICATIONS: Nephropathy: [...] prescribed by cardiology ? ?Follow up with compounding and finishing supervisor and drum puller as recommended. ? ?Patient will need follow-up at with her home weather clerk/PCP in 1-2 weeks after discharge. Prefer to follow locally ? ?Diabetes Care Team Hospital Discharge Help Line: [phone] SIGNATURE: Columba Ulloa APRN.VP PATIENT NAME: Kalyn Cain DATE: August 28, 2017 TIME: 9:02 AM PAGER/CONTACT #: [phone] PROTIME Collected: 08/28/2017 Status: F Source: [place] 5:15 AM [facility] REPOSITORY TYPE CODE TESTS RESULT OUT OF RANGE REFERENCE UNITS LAB PSEC 9.7-13.0 sec PT Sec 11.9 LAB INR 0.9-1.3 PT INR 1.2 Result Comment: Vitamin K Antagonist (VKA) Therapeutic Range: INR 2 to 3 (Target INR of 2.5) Note: For patients treated with VKA drugs, such as warfarin, the [place] [employer] Chest [employer]icians 2012 Guideline recommends [...] Chest 2012, 141:7S-47S Joce SMITH et al. [facility] 2017, 70: 252-289 Performed By: #### PT, CBC, CMP #### [facility] [address] [place], [place] [address] CBC Collected: 08/28/2017 Status: F Source: [place] 5:15 AM [facility] REPOSITORY TYPE CODE TESTS RESULT [...] Performed By: #### PT, CBC, CMP #### [facility] [address], [place] [address] COMP METABOLIC PANEL Collected: 08/28/2017 Status: F Source: [place] 5:15 AM [facility] REPOSITORY TYPE CODE TESTS RESULT OUT OF REFERENCE UNITS RANGE LAB TP 6.3-8.0 g/dL Protein, Total 7.1 LAB ALB 3.9-4.9 g/dL Low Albumin 3.3 LAB CA 8.5-10.2 mg/dL Calcium, Total 9.1 LAB TBIL 0.2-1.3 mg/dL Bilirubin, Total 0.7 LAB ALKP 32-117 U/L Alkaline Phosphatase 83 LAB AST 13-35 U/L AST 17 LAB GLU 74-99 mg/dL Glucose High 126 Result Comment: The [place] Diabetes Association (ADA) provides guidance for cutoff [...] Standards of Medical Care in Diabetes 2016, [place] [employer]. Diabetes Care. 2016.39(Suppl 1). LAB [...] Performed By: #### PT, CBC, CMP #### [facility] [address] [place], [place] [address] THERAPY NT Observed: 08/27/2017 Status: COMPLETED Source: [place] 9:21 AM [facility] REPOSITORY HNO ID: [id number] Author: Lela Quick ([place]) Service: Occupational Therapy Author Type: Occupational Therapist Type: Therapy (PT/OT/Speech/Resp) Filed: 08/27/2017 9:30 AM Note Text: Occupational Therapy Evaluation SERVICE DATE: 08/27/2017 SERVICE TIME: 824 to 904 ROOM: [place] [address] Recommended Discharge Disposition: Home (PRN assist of [...] of daily living (ADL) Interventions Provided: Evaluation;Self Senior Living Management (12036) $ Evaluation-Low (90055) Billed Units: 1 unit Self Senior Living Management (37676) Treatment Minutes: 25 2 units Skilled Intervention(s): [...] August 27, 2017 TIME: 9:21 AM PAGER: [phone] PROGRESS Observed: 08/27/2017 Status: COMPLETED Source: [place] 9:04 AM [facility] [place] REPOSITORY HNO ID: [id number] Author: Devorah Encinas ([facility]) Service: Cardiovascular Medicine Author Type: Nurse Practitioner Type: Progress Notes Filed: 08/27/2017 12:20 PM Note Text: [facility] CARDI[facility]ULAR [facility]ICINE PROGRESS NOTE (Template ID [id number]) Kalyn Cain [id number] PRIMARY SERVICE: Plastic Technician/Pa, Hvi Clinical HOSPITAL DAY: # 8 INTERVAL [...] (EGD 05/12 very small EV, on Coreg), [place] 2003 s/p CABGx3 (03/2004 SVG to Lcx, [...] Systolic and Diastolic Chf (Congestive Heart Failure) ([facility]) History: Acute decompensated systolic HF Assessment: Moderate volume overload. Dry weight 230lb. Warm and wet Plan: Lasix 40mg IV BID, coreg. 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 Patent MCCONNELL-LAD, SVG-RPDA, SVG-OM1 Plan: ASA, coreg, lipitor Cardiac Resynchronization Therapy Defibrillator (Graduate Assistant Athletic Trainer-D) in Place History: BSX N119 COGNIS 100-D 01/05/11 Assessment: BiV pacing 100% Plan: Device check done Pad (Peripheral Artery Disease) ([facility]) History: Hx claudication Assessment: s/p remote LE stenting Plan: ASA, plavix Ckd (Chronic Kidney Disease) Stage 4, Gfr 15-29 Ml/Min ([facility]) History: Baseline creat 2-2.2 Assessment: CKD stage [...] chronic hep C (resolved) Assessment: On aldactone TICKET MARKER Plan: resume aldactone when able Obesity, Class III, BMI >= 40 E66.01 History: BMI 40.04 Assessment: Morbid obesity Plan: HH/carb controlled diet, nutrition consult Case to be discussed with Dr. Waqar Encinas, KITCHEN RUNNER.[facility] Pager [phone] (please see below for after hours communication) 08/27/2017 12:17 PM For communication after 5 pm on weekdays and after 12 pm on weekends, please page the following: - Clinical Cardiology patients on all floors: page [phone] - Other Cardiology patients on J5 and J6: page [phone] - Other Cardiology patients on J7 and J8: page [phone] CONSULT PROG Observed: 08/27/2017 Status: COMPLETED Source: [place] 8:58 AM [facility] [place] REPOSITORY HNO ID: [id number] Author: Columba Ulloa ([facility]) Service: Endocrinology Author Type: Nurse Practitioner [...] is followed by Dr. Ana Gutierrez ( [place] weather clerk) at [facility]?for her diabetes. ? ? DIABETIC COMPLICATIONS: Nephropathy: [...] prescribed by cardiology ? ?Follow up with compounding and finishing supervisor and drum puller as recommended. ? ?Patient will need follow-up at with her home weather clerk/PCP in 1-2 weeks after discharge. Prefer to follow locally ? ?Diabetes Care Team Hospital Discharge Help Line: [phone] ? ? SIGNATURE: Columba Ulloa APRN.CNP PATIENT NAME: Kalyn Cain DATE: August 27, 2017 TIME: 8:58 AM PAGER/CONTACT #: [phone] PROTIME Collected: 08/27/2017 Status: F Source: [place] 5:24 AM [facility] [place] REPOSITORY TYPE CODE TESTS RESULT OUT OF RANGE REFERENCE UNITS LAB PSEC 9.7-13.0 sec PT Sec 12.2 LAB INR 0.9-1.3 PT INR 1.2 Result Comment: Vitamin K Antagonist (VKA) Therapeutic Range: INR 2 to 3 (Target INR of 2.5) Note: For patients treated with VKA drugs, such as warfarin, the [place] [employer] of Chest Physicians 2012 Guideline recommends [...] Chest 2012, 141:7S-47S Joce RA, et al. [facility] 2017, 70: 252-289 Performed By: #### PT, CMP, CBC #### [facility] [address] [place] [address] COMP METABOLIC PANEL Collected: 08/27/2017 Status: F Source: [place] 5:24 AM [facility] REPOSITORY TYPE CODE TESTS RESULT OUT OF REFERENCE UNITS RANGE LAB TP 6.3-8.0 g/dL Protein, Total 7.0 LAB ALB 3.9-4.9 g/dL Low Albumin 3.3 LAB CA 8.5-10.2 mg/dL Calcium, Total 9.1 LAB TBIL 0.2-1.3 mg/dL Bilirubin, Total 0.7 LAB ALKP 32-117 U/L Alkaline Phosphatase 78 LAB AST 13-35 U/L AST 15 LAB GLU 74-99 mg/dL Glucose High 120 Result Comment: The [place] Diabetes Association (ADA) provides guidance for cutoff [...] Standards of Medical Care in Diabetes 2016, [place] [employer]. Diabetes Care. 2016.39(Suppl 1). LAB [...] Performed By: #### PT, CMP, CBC #### [facility] [address] [place], [place] [address] CBC Collected: 08/27/2017 Status: F Source: [place] 5:24 AM [facility] REPOSITORY TYPE CODE TESTS RESULT [...] Performed By: #### PT, CMP, CBC #### [facility] [address] [place], [place] [address] PROGRESS Observed: 08/26/2017 Status: COMPLETED Source: [place] 12:55 PM [facility] REPOSITORY HNO ID: [id number] Author: Devorah Encinas ([facility]) Service: Cardiovascular Medicine Author Type: Nurse Practitioner Type: Progress Notes Filed: 08/26/2017 3:28 PM Note Text: [facility] CARDIOVASCULAR MEDICINE PROGRESS NOTE (Template ID [id number]) Kalyn Cain [id number] PRIMARY SERVICE: Plastic Technician/Pa, Hvi Clinical HOSPITAL DAY: # 7 INTERVAL [...] (EGD 05/12 very small EV, on Coreg), [place] 2003 s/p CABGx3 (03/2004 SVG to Lcx, [...] Systolic and Diastolic Chf (Congestive Heart Failure) ([facility]) History: Acute decompensated systolic HF Assessment: Moderate volume overload. Dry weight 230lb. Warm and wet Plan: Lasix 40mg IV BID, coreg. Resume altace, aldactone when able Active Hospital Problems Diagnosis - Acute on chronic combined systolic and diastolic CHF (congestive heart failure) ([facility]) History: Acute decompensated systolic HF Assessment: Moderate volume overload. Dry weight 230lb. Warm and wet Plan: Lasix 40mg IV BID, coreg. Resume altace, aldactone when able - Coronary artery disease involving stebbins coronary artery of stebbins heart without angina pectoris History: [place] 2004 s/p CABG x3 Assessment: Last cath 2016: LM 100% ostial, LCx/RCA 100% ostial. Patent MCCONNELL-LAD, SVG-RPDA, SVG-OM1 Plan: ASA, coreg, lipitor - Cardiac resynchronization therapy defibrillator (PUBLIC HEALTH TECHNICIAN-D) in place History: BSX N119 COGNIS 100-D 01/05/11 Assessment: BiV pacing 100% Plan: Device check done - PAD (peripheral artery disease) ([facility]) History: Hx claudication Assessment: s/p remote LE stenting Plan: ASA, plavix - CKD (chronic kidney disease) stage 4, GFR 15-29 ml/min ([facility]) History: Baseline creat 2-2.2 Assessment: CKD stage [...] chronic hep C (resolved) Assessment: On aldactone TICKET MARKER Plan: resume aldactone when able - Obesity, Class III, BMI >= 40 E66.01 History: BMI 40.04 Assessment: Morbid obesity Plan: HH/carb controlled diet, nutrition consult Case to be discussed with Dr. Waqar Encinas APRN.VP Pager [phone] (please see below for after hours communication) 08/26/2017 2:24 PM For communication after 5 pm on weekdays and after 12 pm on weekends, please page the following: - Clinical Cardiology patients on all floors: page [phone] - Other Cardiology patients on J5 and J6: page [phone] - Other Cardiology patients on J7 and J8: page [phone] CONSULT PROG Observed: 08/26/2017 Status: COMPLETED Source: [place] 7:46 AM [facility] REPOSITORY HNO ID: [id number] Author: Aretha Rudolph ([employer] Rail Operator) Service: Endocrinology Author Type: Nurse Practitioner Type: [...] is followed by Dr. Ana Gutierrez ( [place] weather clerk) at [facility]?for her diabetes. ? ? DIABETIC COMPLICATIONS: Nephropathy: [...] prescribed by cardiology ? ?Follow up with compounding and finishing supervisor and drum puller as recommended. ? ?Patient will need follow-up at with her home weather clerk/PCP in 1-2 weeks after discharge. Prefer to follow locally ? ?Diabetes Care Team Hospital Discharge Help Line: [phone] ? ? ? SIGNATURE: Aretha Rudolph APRN.VP PATIENT NAME: Kalyn Cain DATE: August 26, 2017 TIME: 7:46 AM PAGER/CONTACT #: [phone] PROTIME Collected: 08/26/2017 Status: F Source: [place] 6:45 AM [facility] REPOSITORY TYPE CODE TESTS RESULT OUT OF RANGE REFERENCE UNITS LAB PSEC 9.7-13.0 sec PT Sec 11.9 LAB INR 0.9-1.3 PT INR 1.2 Result Comment: Vitamin K Antagonist (VKA) Therapeutic Range: INR 2 to 3 (Target INR of 2.5) Note: For patients treated with VKA drugs, such as warfarin, the [place] [employer] of Chest Physicians 2012 Guideline recommends [...] Chest 2012, 141:7S-47S Joce RA, et al. [facility] 2017, 70: 252-289 Performed By: #### PT, CBC, CMP #### [facility] [address] [place], [place] [address] CBC Collected: 08/26/2017 Status: F Source: [place] 6:45 AM [facility] REPOSITORY TYPE CODE TESTS RESULT [...] Performed By: #### PT, CBC, CMP #### [facility] [address] [place], [place] [address] COMP METABOLIC PANEL Collected: 08/26/2017 Status: F Source: [place] 6:45 AM [facility] REPOSITORY TYPE CODE TESTS RESULT OUT OF REFERENCE UNITS RANGE LAB TP 6.3-8.0 g/dL Protein, Total 7.4 LAB ALB 3.9-4.9 g/dL Low Albumin 3.3 LAB CA 8.5-10.2 mg/dL Calcium, Total 9.2 LAB TBIL 0.2-1.3 mg/dL Bilirubin, Total 0.8 LAB ALKP 32-117 U/L Alkaline Phosphatase 82 LAB AST 13-35 U/L AST 14 LAB GLU 74-99 mg/dL Glucose High 208 Result Comment: The [place] Diabetes Association (ADA) provides guidance for cutoff [...] Standards of Medical Care in Diabetes 2016, [place] [employer]. Diabetes Care. 2016.39(Suppl 1). LAB [...] Performed By: #### PT, CBC, CMP #### [facility] [address] [place], [place] [address] PT ED Observed: 08/25/2017 Status: COMPLETED Source: [place] 3:09 PM [facility] REPOSITORY HNO ID: [id number] Author: Royal Mcnally (Pharmacist) Service: Pharmacy Author [...] ANY): none SIGNATURE: Royal Mcnally Pharmacist PAGER: [phone] PT ED Observed: 08/25/2017 Status: COMPLETED Source: [place] 2:44 PM [facility] [place] REPOSITORY O ID: [id number] Author: Honey McduffieDiet-TSulma Uriostegui Service: Nutrition Therapy Author Type: Ping Pong Table Assembler Type: Patient Education Filed: 08/25/2017 2:44 PM [...] PT ED Observed: 08/25/2017 Status: COMPLETED Source: [place] 1:27 PM [facility] REPOSITORY O ID: [id number] Author: Cindi Rios Service: Diabetes Education Author [...] and correctioni addded. Patient/huband to discuss with ADVANCED REGISTERED NURSE/endo as outpatient. PATIENT NAME: Kalyn Cain PATIENT LOCATION: [place] [id number] READINESS TO LEARN COGNITIVE ABILITY: Alert and [...] By: Cindi Rios RD CDE MPH beeper: [id number] Time = 45 minutes CASE MANAGEM Observed: 08/25/2017 Status: COMPLETED Source: [place] 11:58 AM [facility] REPOSITORY HNO ID: [id number] Author: Clint Whittaker) ROMÁN Patino Service: Case Management Author Type: Registered Nurse Type: Care Mgt Progress Note Filed: 08/25/2017 12:00 PM Note Text: CARE MANAGEMENT PROGRESS NOTE SERVICE DATE: 08/25/2017 SERVICE TIME: 1158 LOS: 6 days Pt transferred to [facility] for further management of her HF. PT previously recommended pt for home. Currently on RA. No skilled needs identified at this time. CM will continue to follow for DC planning/needs. SIGNATURE: Clint Patino RN PATIENT NAME: Kalyn Cain DATE: August 25, 2017 TIME: 11:58 AM PAGER/CONTACT #: [phone] NUTRITION Observed: 08/25/2017 Status: COMPLETED Source: [place] 10:20 AM [facility] REPOSITORY HNO ID: [id number] Author: Maddy Turner (Diet-T) Service: Nutrition Therapy Author Type: Ping Pong Table Assembler Type: Nutrition Filed: 08/25/2017 10:22 AM Note [...] Type: Routine Care/15 min 1 unit SIGNATURE: MARLNIE Meneses PATIENT NAME: Kalyn Cain DATE: August 25, 2017 TIME: 10:20 AM PAGER: [phone] PROGRESS Observed: 08/25/2017 Status: COMPLETED Source: [place] 9:16 AM [facility] REPOSITORY O ID: [id number] Author: Devorah Encinas Service: Cardiovascular Medicine Author Type: Nurse Practitioner Type: Progress Notes Filed: 08/25/2017 3:06 PM Note Text: [facility] CARDIOVASCULAR MEDICINE PROGRESS NOTE (Template ID [id number]) Kalyn Cain [id number] PRIMARY SERVICE: Plastic Technician/Pa, i Clinical HOSPITAL DAY: # 6 INTERVAL [...] (EGD 05/12 very small EV, on Coreg), [place] 2003 s/p CABGx3 (03/2004 SVG to Lcx, [...] systolic and diastolic CHF (congestive heart failure) ([facility]) History: Acute decompensated systolic HF Assessment: Moderate volume overload. Dry weight 230lb. Warm and wet Plan: Lasix 40mg IV daily, coreg. Resume altace, aldactone when able - Coronary artery disease involving stebbins coronary artery of stebbins heart without angina pectoris History: [place] 2004 s/p CABG x3 Assessment: Last cath 2016: LM 100% ostial, LCx/RCA 100% ostial. Patent MCCONNELL-LAD, SVG-RPDA, SVG-OM1 Plan: ASA, coreg, lipitor - Cardiac resynchronization therapy defibrillator (PUBLIC HEALTH TECHNICIAN-D) in place History: BSX N119 COGNIS 100-D 01/05/11 Assessment: BiV pacing 100% Plan: Device check done - PAD (peripheral artery disease) ([facility]) History: Hx claudication Assessment: s/p remote LE stenting Plan: ASA, plavix - CKD (chronic kidney disease) stage 4, GFR 15-29 ml/min ([facility]) History: Baseline creat 2-2.2 Assessment: CKD stage [...] chronic hep C (resolved) Assessment: On aldactone TICKET MARKER Plan: resume aldactone when able - Obesity, Class III, BMI >= 40 E66.01 History: BMI 40.04 Assessment: Morbid obesity Plan: HH/carb controlled diet, nutrition consult Case to be discussed with Dr. Waqar Encinas APRN.VP Pager [phone] (please see below for after hours communication) 08/25/2017 3:03 PM For communication after 5 pm on weekdays and after 12 pm on weekends, please page the following: - Clinical Cardiology patients on all floors: page [phone] - Other Cardiology patients on J5 and J6: page [phone] - Other Cardiology patients on J7 and J8: page [phone] CONSULT PROG Observed: 08/25/2017 Status: COMPLETED Source: [place] 7:55 AM [facility] [place] REPOSITORY HNO ID: [id number] Author: Aretha Morales) Klaudia Service: Endocrinology Author [...] is followed by Dr. Ana Gutierrez ( [place] weather clerk) at [facility] for her diabetes. ? DIABETIC COMPLICATIONS: Nephropathy: [...] 6 AC for now. Patient transferred To [facility] cardiology for management of HF. Will monitor [...] Lantus to 20 for tomorrow. Aretha Rudolph APRN.VP 6:30 PM BG high will increase H to 10 u AC. Aretha Rudolph APRN.CNP DM DISCHARGE PLAN: ? MDI insulin of Tresiba and Novolog Doses TBD ? Check blood sugars Four times a Day ? Diet: As per Unit Dietitian ? Exercise as prescribed by cardiology ? Follow up with compounding and finishing supervisor and drum puller as recommended. ? Patient will need follow-up at with her home weather clerk/PCP in 1-2 weeks after discharge. Prefer to follow locally ? Diabetes Care Team Hospital Discharge Help Line: [phone] ? SIGNATURE: Aretha Rudolph APRN.CNP PATIENT NAME: Kalyn Cain DATE: August 25, 2017 TIME: 7:55 AM PAGER/CONTACT #: [phone] CBC Collected: 08/25/2017 Status: F Source: [place] 5:19 AM [facility] REPOSITORY TYPE CODE TESTS RESULT [...] #### CBC, PT, CMP, LIPB, TSH #### [facility] [address] [id number] PROTIME Collected: 08/25/2017 Status: F Source: [place] 5:19 AM [facility] REPOSITORY TYPE CODE TESTS RESULT OUT OF RANGE REFERENCE UNITS LAB PSEC 9.7-13.0 sec PT Sec 12.3 LAB INR 0.9-1.3 PT INR 1.2 Result Comment: Vitamin K Antagonist (VKA) Therapeutic Range: INR 2 to 3 (Target INR of 2.5) Note: For patients treated with VKA drugs, such as warfarin, the [place] [employer] Physicians 2012 Guideline recommends [...] Chest 2012, 141:7S-47S Joce RA, et al. [facility] 2017, 70: 252-289 Performed By: #### CBC, PT, CMP, LIPB, TSH #### [facility] [address] [place], [place] [address] COMP METABOLIC PANEL Collected: 08/25/2017 Status: F Source: [place] 5:19 AM [facility] REPOSITORY TYPE CODE TESTS RESULT [...] mg/dL Glucose High 105 Result Comment: The [place] Diabetes Association (ADA) provides guidance for cutoff [...] Standards of Medical Care in Diabetes 2016, [place] [employer]. Diabetes Care. 2016.39(Suppl 1). LAB [...] #### CBC, PT, CMP, LIPB, TSH #### [facility] [address] [place], [place] [address] LIPID PANEL, BASIC Collected: 08/25/2017 Status: F Source: [place] 5:19 AM [facility] REPOSITORY TYPE CODE TESTS RESULT [...] Desk Reference: National Heart, Lung, and Blood [place]. National Institutes of Health. 2001: NIH Publication No. 01-3305. 2. An International Atherosclerosis Society position paper: global recommendations for the management of dyslipidemia: executive summary, Atherosclerosis. 2014: 232(2):410-413. Performed By: #### CBC, PT, CMP, LIPB, TSH #### [facility] [address] [address] TSH Collected: 08/25/2017 Status: F Source: [place] 5:19 AM [facility] REPOSITORY TYPE CODE TESTS RESULT OUT OF RANGE REFERENCE UNITS LAB TSH 0.400-5.500 uU/mL TSH 1.990 Performed By: #### CBC, PT, CMP, LIPB, TSH #### [facility] [address] [place], [place] [address] NURSING PROG Observed: 08/24/2017 Status: COMPLETED Source: [place] 10:20 PM [facility] REPOSITORY HNO ID: [id number] Author: Abiodun (Rn) ROMÁN Winn Service: (none) Author Type: Registered Nurse Type: Nursing Progress Note Filed: 08/24/2017 10:20 PM Note Text: Admission/Transfer Note PATIENT NAME: Kalyn Cain Patient transferred to [facility] via bed in stable condition. Actions taken: Patient oriented to room, call light function, prescribed activities, Patient rights and Quiet at night. This note was completed by: Abiodun Winn RN CASE MANAGEM Observed: 08/24/2017 Status: COMPLETED Source: [place] 3:43 PM [facility] REPOSITORY HNO ID: [id number] Author: Quyen McduffieRnSulma Ansari RN Service: Care Management Author Type: Registered Nurse Type: Care Mgt Progress Note Filed: 08/24/2017 3:44 PM Note Text: CARE MANAGEMENT PROGRESS NOTE SERVICE DATE: 08/24/2017 SERVICE TIME: 3:43 PM LOS: 5 days Plan is transfer to [facility] cardiology to follow. Plan remain home with no needs. SIGNATURE: Quyen Ansari RN PATIENT NAME: Kalyn Cain DATE: August 24, 2017 TIME: 3:43 PM PAGER/CONTACT #: [phone] THERAPY NT Observed: 08/24/2017 Status: COMPLETED Source: [place] 2:29 PM [facility] REPOSITORY HNO ID: [id number] Author: Kajal Wilkes (Pt) Riya Service: Physical Therapy Author Type: Physical Therapist Type: Therapy (PT/OT/Speech/Resp) Filed: 08/24/2017 2:29 PM Note Text: PHYSICAL THERAPY MISSED VISIT SERVICE DATE: 08/24/2017 SERVICE TIME: 1347 to 1347 ROOM: [place] [address] Attempted Treatment. Patient not seen due to Declined. Pt declined PT this afternoon due to fatigue. Will continue to follow. SIGNATURE: Kajal Ritter PT PATIENT NAME: Kalyn Cain DATE: August 24, 2017 TIME: 2:29 PM PAGER/CONTACT #: [phone] ASCITES SURVEY Observed: 08/24/2017 Status: F Source: [place] 2:01 PM [facility] REPOSITORY * * *Final Report* * * DATE OF EXAM: Aug 24 2017 2:01PM [facility] - ASCITES SURVEY / PROCEDURE REASON: Ascites * * * * Physician Interpretation * * * * LIMITED ABDOMEN ULTRASOUND HISTORY: Evaluate ascites for possible paracentesis. TECHNIQUE: Targeted sonography of the abdomen was performed. Images were obtained and stored in a permanent archive. RESULT: There is no ascites. IMPRESSION: NO ASCITES. Dairy Processing Supervisor: GISELLE Transcribe Date/Time: Aug 24 2017 2:17P Dictated by : ISABELL IVERSON JR, MD This examination was interpreted and the report reviewed and electronically signed by: ISABELL IVERSON JR, MD on Aug 24 2017 2:18PM EST [id number] CONSULT Observed: 08/24/2017 Status: COMPLETED Source: [place] 1:38 PM [facility] [place] REPOSITORY HNO ID: [id number] Author: Aretha Morales) Klaudia Service: Endocrinology Author [...] is followed by Dr. Ana Gutierrez ( [place] weather clerk) at [facility] for her diabetes. DIABETIC COMPLICATIONS: Nephropathy: CKD [...] cardiology/ primary team ? Follow up with compounding and finishing supervisor and drum puller as recommended. ? Patient will need follow-up at with her home weather clerk/PCP in 1-2 weeks after discharge. Prefer to follow locally ? Diabetes Care Team Hospital Discharge Help Line: [phone] SIGNATURE: Aretha Rudolph APRN.CNP PATIENT NAME: Kalyn Cain DATE: August 24, 2017 TIME: 1:39 PM PAGER/CONTACT #: [phone] PROGRESS Observed: 08/24/2017 Status: COMPLETED Source: [place] 12:43 PM [facility] [place] REPOSITORY HNO ID: [id number] Author: Chasidy Zavaleta Service: Cardiovascular Medicine Author Type: Physician Type: Progress Notes Filed: 08/24/2017 4:53 PM Note Text: [facility] CARDIOVASCULAR MEDICINE PROGRESS NOTE Kalyn Aldrichpaulette [id number] PRIMARY SERVICE: HOSPITAL DAY: # 5 INTERVAL [...] (EGD 05/12 very small EV, on Coreg), [place] 2004 s/p CABGx3 (03/2004 SVG to Lcx, SVG to RCA and MCCONNELL graft to the LAD), ICM s/p CRTD placement (12/2010) (On ASA and Plavix), PAD s/p left lower extremity stenting (on ASA and Plavix) HFrEF (EF=40%), DMT2 (on insulin) and CKD stage 3b who presented to the ED due to SOB. Follows with needle loom operator Dr. Aj in [place] who is with [facility]. Issues to communicate: Lasix 40 IV daily Dry weight 230lb Problem Acute On Chronic Combined Systolic and Diastolic Chf (Congestive Heart Failure) ([facility]) History: Acute decompensated systolic HF Assessment: Moderate volume overload. Dry weight 230lb. Warm and wet Plan: Lasix 40mg IV daily, coreg. Resume altace, aldactone when able Heart Failure With Reduced Ejection Fraction ([facility]) Coronary Artery Disease Involving [place] 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 Patent MCCONNELL-LAD, SVG-RPDA, SVG-OM1 Plan: ASA, coreg, lipitor Cardiac Resynchronization Therapy Defibrillator (Graduate Assistant Athletic Trainer-D) in Place History: BSX N119 COGNIS 100-D 01/05/11 Assessment: BiV pacing 100% Plan: Device check done Pad (Peripheral Artery Disease) ([facility]) History: Hx claudication Assessment: s/p remote LE stenting Plan: ASA, plavix Ckd (Chronic Kidney Disease) Stage 4, Gfr 15-29 Ml/Min ([facility]) History: Baseline creat 2-2.2 Assessment: CKD stage [...] chronic hep C (resolved) Assessment: On aldactone TICKET MARKER Plan: resume aldactone when able Obesity, Class III, BMI >= 40 E66.01 History: BMI 40.04 Assessment: Morbid obesity Plan: HH/carb controlled diet, nutrition consult Volume Overload Case discussed with Chasidy Zavaleta M.D. Renay Dockery Cardiovascular Medicine Nurse Practitioner Pager [phone] (please see below for after hours communication) 08/24/2017 12:45 PM For communication after 5 pm on weekdays and after 12 pm on weekends, please page the following: - Clinical Cardiology patients on all floors: page [phone] - Other Cardiology patients on J5 and J6: page [phone] - Other Cardiology patients on J7 and J8: page [phone] [facility] STAFF PHYSICIAN NOTE OF PERSONAL INVOLVEMENT [...] HTN, CAD s/p CABG x4 (03/2004), h/o HI s/p defib placement, on ASA AND plavix,DMT2,CKD Orhdo7x, and-Chronic macrocytic anemia. Agree with IV diuretics. May need RHC and ischemic evaluation. Last [facility] '16 with severe CAD stebbins vessels and + patent grafts Chasidy Zavaleta MD August 24, 2017 4:50 PM PT ED Observed: 08/24/2017 Status: COMPLETED Source: [place] 10:20 AM [facility] [place] REPOSITORY O ID: [id number] Author: Cindi Rios Service: Diabetes Education Author [...] no questions. Patient to be transferred to [facility] ; cardiology; will follow with updated dm regime. PATIENT NAME: Kalyn Cain PATIENT LOCATION: [place] [address]/[place] [address] READINESS TO LEARN COGNITIVE ABILITY: Alert and [...] By: Cindi Rios RD CDE MPH beeper; [id number] Time = 30 minutes PROGRESS Observed: 08/24/2017 Status: COMPLETED Source: [place] 9:47 AM [facility] REPOSITORY HNO ID: [id number] Author: Marika (Rn) ROMÁN Hale Service: Cardiovascular Medicine Author Type: Registered Nurse Type: Progress Notes Filed: 08/24/2017 9:47 AM Note Text: 08/24/2017 9:47 AM Order reviewed by nurse:yes Medications: Definity - dosage 1.5 ml Reaction: No PROGRESS Observed: 08/24/2017 Status: COMPLETED Source: [place] 4:59 AM [facility] REPOSITORY HNO ID: [id number] Author: Marquis White Service: Hepatology Author Type: Physician Type: Progress Notes Filed: 08/24/2017 7:37 AM Note Text: HEPATOLOGY GREEN SERVICE PROGRESS NOTE For any questions or concerns [place] [phone] [place] [phone] after 5PM. SERVICE DATE: 08/24/2017 SERVICE TIME: [...] EV, CAD s/p CABG x4 (03/2004), h/o HI s/p defib placement (on ASA AND plavix), HF(EF 40%, on lasix 40mg BID), DMT2, CKD Xkhvm0n, macrocytic anemia who presents with ? #Volume [...] levothyroxine. #CAD s/p CABG x4 (03/2004), h/o HI - continue ASA, plavix #CKD Stage 4 [...] Martino MD Internal Medicine Resident PGY-1 Pager# [phone] August 24, 2017 4:59 AM Patient examined. [...] no tenderness, mild distension, bowel sounds normal PROCESS ARTIST: Alert, oriented x3. moves all 4 extremities, [...] Hepatology PROTIME Collected: 08/24/2017 Status: F Source: [place] 4:50 AM [facility] REPOSITORY TYPE CODE TESTS RESULT OUT OF RANGE REFERENCE UNITS LAB PSEC 9.7-13.0 sec PT Sec 12.4 LAB INR 0.9-1.3 PT INR 1.2 Result Comment: Vitamin K Antagonist (VKA) Therapeutic Range: INR 2 to 3 (Target INR of 2.5) Note: For patients treated with VKA drugs, such as warfarin, the [place] [employer] of Chest Physicians 2012 Guideline recommends [...] Chest 2012, 141:7S-47S Joce RA, et al. [facility] 2017, 70: 252-289 Performed By: #### PT, CMP, CBC #### [facility] [address] [place], [place] [address] COMP METABOLIC PANEL Collected: 08/24/2017 Status: F Source: [place] 4:50 AM [facility] REPOSITORY TYPE CODE TESTS RESULT OUT OF REFERENCE UNITS RANGE LAB TP 6.3-8.0 g/dL Protein, Total 7.1 LAB ALB 3.9-4.9 g/dL Low Albumin 3.2 LAB CA 8.5-10.2 mg/dL Calcium, Total 8.9 LAB TBIL 0.2-1.3 mg/dL Bilirubin, Total 0.7 LAB ALKP 32-117 U/L Alkaline Phosphatase 82 LAB AST 13-35 U/L AST 13 LAB GLU 74-99 mg/dL Glucose High 251 Result Comment: The [place] Diabetes Association (ADA) provides guidance for cutoff [...] Standards of Medical Care in Diabetes 2016, [place] Diabetes [employer]. Diabetes Care. 2016.39(Suppl 1). LAB [...] Performed By: #### PT, CMP, CBC #### [facility] [address] [place], [place] [address] CBC Collected: 08/24/2017 Status: F Source: [place] 4:50 AM [facility] REPOSITORY TYPE CODE TESTS RESULT [...] Performed By: #### PT, CMP, CBC #### [facility] [address] [place], [place] [address] PLAN OF CARE Observed: 08/23/2017 Status: COMPLETED Source: [place] 10:12 PM [facility] REPOSITORY HNO ID: [id number] Author: Salena Young Service: Hepatology Author Type: Resident Type: Plan of Care Filed: 08/23/2017 11:28 PM Note Text: Ms. Cain has been accepted for transfer to Cardiology service under Dr. Chasidy Zavaleta for further management of decompensated heart failure. Transfer orders have been signed. Salena Young MD PGY-3 Internal Medicine Resident Pager: [phone] August 23, 2017 THERAPY NT Observed: 08/23/2017 Status: COMPLETED Source: [place] 2:47 PM [facility] REPOSITORY O ID: [id number] Author: Kajal Wilkes (Pt) Riya Service: Physical Therapy Author Type: Physical Therapist Type: Therapy (PT/OT/Speech/Resp) Filed: 08/23/2017 2:57 PM Note Text: Physical Therapy Evaluation SERVICE DATE: 08/23/2017 SERVICE TIME: 1400 to 1434 ROOM: [place] [address] Recommended Discharge Disposition: Home Recommended Discharge Disposition [...] gait and mobility-other Interventions Provided: Evaluation;Therapeutic Activity (69452) $ Evaluation-Low (66204) Billed Units: 1 unit Therapeutic Activity (05162) Treatment Minutes: 16 1 unit Skilled Intervention(s): [...] 23, 2017 TIME: 2:47 PM PAGER/CONTACT #: [phone] PT ED Observed: 08/23/2017 Status: COMPLETED Source: [place] 1:26 PM [facility] REPOSITORY O ID: [id number] Author: Cindi Pereira) Blanca Service: Diabetes Education [...] management PATIENT NAME: Kalyn Cain PATIENT LOCATION: [place] [address] READINESS TO LEARN COGNITIVE ABILITY: Alert and [...] By: Cindi Rios RD CDE MPH beeper: [id number] Time = 45 minutes CONSULT Observed: 08/23/2017 Status: COMPLETED Source: [place] 12:49 PM [facility] REPOSITORY HNO ID: [id number] Author: Colby Garcia Service: Cardiovascular Medicine Author Type: Physician Type: Consults Filed: 08/24/2017 2:02 PM Note Text: [facility] CARDIOVASCULAR MEDICINE CONSULT NOTE (Template ID [id number]) Kalyn Cain [id number] PRIMARY SERVICE: Hepatology Dr. White CONSULTING SERVICE: [...] (EGD 05/12 very small EV, on Coreg), [place] 2003 s/p CABGx3 (03/2004 SVG to Lcx, SVG to RCA and MCCONNELL graft to the LAD), ICM s/p CRTD placement (12/2010) (On ASA and Plavix), PAD s/p left lower extremity stenting (on ASA and Plavix) HFrEF (EF=40%), DMT2 (on insulin) and CKD stage 3b who presented to the ED due to SOB. Follows with needle loom operator Dr. Aj in [place] who is with [facility]. In ED, pt HDS, afebrile, O2 [...] QD but this was discontinued by her paper pattern inspector in April. Currently she is on Carvedilol [...] E.D. VISIT Confirmed by EDYTA RAMSAY M.D. ([id number]), associate entertainment editor JIM RIVAS ([id number]) on 08/21/2017 9:38:39 AM ? Ventricular Rate [...] (EGD 05/12 very small EV, on Coreg), HI 2003 s/p CABGx3 (03/2004 SVG to Lcx, SVG to RCA and MCCONNELL graft to the LAD), ICM s/p defib placement (12/2010) (On ASA and Plavix), PAD s/p left lower extremity stenting (on ASA and Plavix) HFrEF (EF=40%), DMT2 (on insulin) and CKD stage 3b who presented to the ED due to SOB. Follows with needle loom operator Dr. Aj in [place] who is with [facility]. HFrEF Patient presenting with SOB, BENNETT, LE swelling and orthopnea for past 3-4 months. NYHA class III/IV ECHO reveals EF 40% with grade III diastolic dysfunction. No prior study in our system for comparison. History of HI, CAD and ischemic cardiomyopathy requiring AICD placement [...] with CAD s/p 3V CABG in 2003 [facility] 03/2016 Right coronary dominant circulation with a left main ostial lesion 100% stenosis, left circumflex proximal lesion with 100% stenosis and RCA proximal lesion with 100% stenosis. SVG to Lcx, SVG to RCA and MCCONNELL graft to the LAD were patent. Patient with LHC at [facility] in May 2017 no records available Plan Continue Coreg 6.25 mg BID. Consider up titrating Coreg to home dose of 12.5 mg BID in the coming days as volume status improves. Continue ASA 81 mg Continue Plavix 75 mg Continue Atorvastain 40 mg Pleas obtain OSH records from [facility] (specifically cardiac ECHO and LHC) KAREEN [...] discussed with staff Uriah Rivas MD Pager [phone] 08/23/2017 12:49 PM [facility] STAFF PHYSICIAN NOTE OF PERSONAL INVOLVEMENT IN CARE IMPRESSION: Patient is a 67 year old female admitted with shortness of breath secondary to decompensated systolic and diastolic heart failure [EF 40% on echo in this admission, we do not have a recent echo reports from outside hospital] due to ischemic cardiomyopathy. She is status post PUBLIC HEALTH TECHNICIAN-D implant in 2000. Her background is significant for HI 2003 s/p CABGx3 (03/2004 SVG to Lcx, SVG to RCA and MCCONNELL graft to the LAD); report of outside hospital coronary angiography in July 2016 suggested occluded stebbins coronary arteries and patent MCCONNELL to LAD, SVG to LCx and SVG to RCA. She informs us she has had a repeat coronary catheterization in May of this year [facility], however there are no catheter images [...] stage 3b. She was advised by the hand potter present emergency room after informing him of increasing shortness of breath. Hepatology service has assessed that her cirrhosis is compensated at present. She reports increasing shortness of breath NYHA class III?IV symptoms in recent months, with multiple admissions [facility] this year, however she is unsure [...] 1.7. Recommendations: - Obtain catheterization images/report from [facility] for procedure performed interpreted this year - Obtain recent discharge summaries from [facility] for recent admissions, ? Related to heart failure - Recommence IV Lasix - Monitor renal function - Fluid/Salt restrict - Abdominal ascites ultrasound scan - Aim to increase carvedilol dose to her usual 12.5 mg twice a day in the coming days - Consider restarting BONITA inhibitor once renal function improves - I have discussed with Dr. Zavaleta from the cardiology and [facility] REGISTERED NURSE service, who has kindly accepted care for [...] PT ED Observed: 08/23/2017 Status: COMPLETED Source: [place] 11:44 AM [facility] REPOSITORY HNO ID: [id number] Author: Heidy (Rn) Felipe Iverson RN Service: Diabetes Education Author Type: Registered Nurse Type: Patient Education Filed: 08/23/2017 11:45 AM Note Text: DIABETES EDUCATION PROGRESS NOTE Diabetes education referral received[place] [phone] PROGRESS Observed: 08/23/2017 Status: COMPLETED Source: [place] 6:25 AM [facility] REPOSITORY HNO ID: [id number] Author: Marquis White Service: Hepatology Author Type: Physician Type: Progress Notes Filed: 08/23/2017 9:11 AM Note Text: HEPATOLOGY -GREEN TEAM Progress Note PATIENT NAME: Kalyn Cain PRIMARY TEAM: Hepatology Weekdays 7 am to 5 pm/Weekend 7 am to 3 pm: Page [phone] (News Camera Person- Richard Morgan) then [phone] (Senior- Clement Chester) Weekdays 5 pm to 7 am/Weekend 3 pm to 7 am: Coke Still Cleaner Pager [phone] PRIMARY CARE PHYSICIAN: Mary Ramirez DO Patient [...] Pearson -CAD s/p CABG x4 (03/2004), h/o [place] s/p defib placement, on ASA AND plavix -HF? No echo on EPIC (on lasix 40mg BID) -DMT2 -CKD Gakio4t -Chronic macrocytic anemia Patient presented to ED on 08/19/17 d/t CT scan performed locally showing swelling around liver AND spleen. Her local doctor recommended she f/u at [facility] due to history of cirrhosis. Of note, [...] years Date of diagnosis: HCV ~2002, cirrhosis ~0801-8915 Biopsy proven: No OLT listed: No Last [...] 0 840 600 780 0 Output (ml) 148 282 9602 1300 0 Net (ml) -300 440 -901 [...] 0 840 600 780 0 Output (ml) 225 401 7317 1300 0 Net (ml) -300 440 -901 [...] EV, CAD s/p CABG x4 (03/2004), h/o [place] s/p defib placement (on ASA AND plavix), HF? No echo on EPID (on lasix 40mg BID), DMT2, CKD Wgujn7m, macrocytic anemia who presents with #Volume overload [...] levothyroxine. #CAD s/p CABG x4 (03/2004), h/o HI - continue ASA, plavix #CKD Stage 4 [...] Young MD PGY-3 Internal Medicine Resident Pager: [phone] August 23, 2017 Patient examined. Team notes [...] no tenderness, mild distension, bowel sounds normal PROCESS ARTIST: Alert, oriented x3. moves all 4 extremities, [...] Hepatology CBC Collected: 08/23/2017 Status: F Source: [place] 6:11 AM [facility] REPOSITORY TYPE CODE TESTS RESULT [...] Performed By: #### CBC, PT, CMP #### [facility] [address] [place], [place] [address] PROTIME Collected: 08/23/2017 Status: F Source: [place] 6:11 AM [facility] REPOSITORY TYPE CODE TESTS RESULT OUT OF RANGE REFERENCE UNITS LAB PSEC 9.7-13.0 sec PT Sec 11.9 LAB INR 0.9-1.3 PT INR 1.2 Result Comment: Vitamin K Antagonist (VKA) Therapeutic Range: INR 2 to 3 (Target INR of 2.5) Note: For patients treated with VKA drugs, such as warfarin, the [place] [employer]icians 2012 Guideline recommends [...] Chest 2012, 141:7S-47S Joce RA, et al. [facility] 2017, 70: 252-289 Performed By: #### CBC, PT, CMP #### [facility] [address] [place] [address] COMP METABOLIC PANEL Collected: 08/23/2017 Status: F Source: [place] 6:11 AM [facility] REPOSITORY TYPE CODE TESTS RESULT OUT OF REFERENCE UNITS RANGE LAB TP 6.3-8.0 g/dL Protein, Total 7.3 LAB ALB 3.9-4.9 g/dL Low Albumin 3.5 LAB CA 8.5-10.2 mg/dL Calcium, Total 8.9 LAB TBIL 0.2-1.3 mg/dL Bilirubin, Total 0.7 LAB ALKP 32-117 U/L Alkaline Phosphatase 83 LAB AST 13-35 U/L AST 13 LAB GLU 74-99 mg/dL Glucose High 116 Result Comment: The [place] Diabetes Association (ADA) provides guidance for cutoff [...] Standards of Medical Care in Diabetes 2016, [place] [employer]. Diabetes Care. 2016.39(Suppl 1). LAB [...] Performed By: #### CBC, PT, CMP #### [facility] [address] [place], [place] [address] HEMOGLOBIN A1C Collected: 08/23/2017 Status: F Source: [place] 6:11 AM [facility] [place] REPOSITORY TYPE CODE TESTS RESULT OUT OF REFERENCE UNITS RANGE LAB HGBA1C 4.3-5.6 % High Hemoglobin A1c 5.8 LAB HBA0 mg/dL Est. Average Glucose 120 Result Comment: eAG: (Estimated average glucose) is a calculated value from HgbA1c and is client services representative of the average blood glucose level in the last 2-3 month period. Performed By: #### HBA1C #### [facility] [address] [place], [place] [address] PROGRESS Observed: 08/22/2017 Status: COMPLETED Source: [place] 6:32 AM [facility] REPOSITORY HNO ID: [id number] Author: Marquis White Service: Hepatology Author Type: Physician Type: Progress Notes Filed: 08/22/2017 8:20 AM Note Text: HEPATOLOGY -GREEN TEAM Progress Note PATIENT NAME: Kalyn Cain PRIMARY TEAM: Hepatology Weekdays 7 am to 5 pm/Weekend 7 am to 3 pm: Page [phone] (News Camera Person- Richard Morgan) then [phone] (Senior- Clement Chester) Weekdays 5 pm to 7 am/Weekend 3 pm to 7 am: Coke Still Cleaner Pager [phone] PRIMARY CARE PHYSICIAN: Mary Ramirez DO Patient [...] Pearson -CAD s/p CABG x4 (03/2004), h/o HI s/p defib placement, on ASA AND plavix -HF? No echo on EPIC (on lasix 40mg BID) -DMT2 -CKD Nbzgp4g -Chronic macrocytic anemia Patient presented to ED [...] years Date of diagnosis: HCV ~2002, cirrhosis ~0711-6333 Biopsy proven: No OLT listed: No Last [...] (ml) 0 840 600 0 Output (ml) 142 399 7924 0 Net (ml) -300 440 -901 0 [...] (ml) 0 840 600 0 Output (ml) 861 638 1001 0 Net (ml) -300 440 -901 0 [...] EV, CAD s/p CABG x4 (03/2004), h/o HI s/p defib placement (on ASA AND plavix), HF? No echo on EPID (on lasix 40mg BID), DMT2, CKD Qftlw7x, macrocytic anemia who presents with #Volume overload [...] TSH #CAD s/p CABG x4 (03/2004), h/o HI - continue ASA, plavix #CKD Stage 4 [...] Titi Rivas MD Internal Medicine PGY-2 Pager [phone] August 22, 2017 6:36 AM Patient examined. [...] no tenderness, mild distension, bowel sounds normal PROCESS ARTIST: Alert, oriented x3. moves all 4 extremities, [...] Hepatology PROTIME Collected: 08/22/2017 Status: F Source: [place] 5:05 AM [facility] REPOSITORY TYPE CODE TESTS RESULT OUT OF RANGE REFERENCE UNITS LAB PSEC 9.7-13.0 sec PT Sec 12.2 LAB INR 0.9-1.3 PT INR 1.2 Result Comment: Vitamin K Antagonist (VKA) Therapeutic Range: INR 2 to 3 (Target INR of 2.5) Note: For patients treated with VKA drugs, such as warfarin, the [place] [employer] 2012 Guideline recommends [...] Chest 2012, 141:7S-47S Joce SMITH, et al. [facility] 2017, 70: 252-289 Performed By: #### PT, CMP, CBC #### [facility] [address] [place], [place] [address] COMP METABOLIC PANEL Collected: 08/22/2017 Status: F Source: [place] 5:05 AM [facility] REPOSITORY TYPE CODE TESTS RESULT OUT OF REFERENCE UNITS RANGE LAB TP 6.3-8.0 g/dL Protein, Total 7.0 LAB ALB 3.9-4.9 g/dL Low Albumin 3.4 LAB CA 8.5-10.2 mg/dL Calcium, Total 8.6 LAB TBIL 0.2-1.3 mg/dL Bilirubin, Total 0.7 LAB ALKP 32-117 U/L Alkaline Phosphatase 77 LAB AST 13-35 U/L AST 14 LAB GLU 74-99 mg/dL Low Glucose 53 Result Comment: The [place] [employer] (ADA) provides guidance for cutoff [...] Standards of Medical Care in Diabetes 2016, [place] [employer]. Diabetes Care. 2016.39(Suppl 1). LAB [...] Performed By: #### PT, CMP, CBC #### [facility] [address] [place], [place] [address] CBC Collected: 08/22/2017 Status: F Source: [place] 5:05 AM [facility] REPOSITORY TYPE CODE TESTS RESULT [...] Performed By: #### PT, CMP, CBC #### [facility] [address] [place], [place] [address] PROGRESS Observed: 08/21/2017 Status: COMPLETED Source: [place] 6:54 AM [facility] REPOSITORY HNO ID: [id number] Author: Marquis White Service: Hepatology Author Type: Physician Type: Progress Notes Filed: 08/21/2017 8:57 AM Note Text: HEPATOLOGY -GREEN TEAM Progress Note PATIENT NAME: Kalyn Cain PRIMARY TEAM: Hepatology Weekdays 7 am to 5 pm/Weekend 7 am to 3 pm: Page [phone] (News Camera Person- Richard Morgan) then [phone] (Senior- Clement Chester) Weekdays 5 pm to 7 am/Weekend 3 pm to 7 am: Coke Still Cleaner Pager [phone] PRIMARY CARE PHYSICIAN: Mary Ramirez DO Patient [...] Pearson -CAD s/p CABG x4 (03/2004), h/o HI s/p defib placement, on ASA AND plavix -HF? No echo on EPIC (on lasix 40mg BID) -DMT2 -CKD Hniud7v -Chronic macrocytic anemia Patient presented to ED [...] years Date of diagnosis: HCV ~2002, cirrhosis ~1788-5966 Biopsy proven: No OLT listed: No Last [...] EV, CAD s/p CABG x4 (03/2004), h/o HI s/p defib placement (on ASA AND plavix), HF? No echo on EPID (on lasix 40mg BID), DMT2, CKD Umjef1o, macrocytic anemia who presents with #Volume overload [...] TSH #CAD s/p CABG x4 (03/2004), h/o HI - continue ASA, plavix #CKD Stage 4 [...] Titi Rivas MD Internal Medicine PGY-2 Pager [phone] August 21, 2017 6:56 AM Note: These [...] no tenderness, mild distension, bowel sounds normal PROCESS ARTIST: Alert, oriented x3. moves all 4 extremities, [...] Hepatology PROTIME Collected: 08/21/2017 Status: F Source: [place] 6:32 AM [facility] REPOSITORY TYPE CODE TESTS RESULT OUT OF RANGE REFERENCE UNITS LAB PSEC 9.7-13.0 sec PT Sec 12.1 LAB INR 0.9-1.3 PT INR 1.2 Result Comment: Vitamin K Antagonist (VKA) Therapeutic Range: INR 2 to 3 (Target INR of 2.5) Note: For patients treated with VKA drugs, such as warfarin, the [place] [employer]icians 2012 Guideline recommends [...] Chest 2012, 141:7S-47S Joce RA, et al. [facility] 2017, 70: 252-289 Performed By: #### PT, CMP, CBC #### [facility] [address] [place] [address] COMP METABOLIC PANEL Collected: 08/21/2017 Status: F Source: [place] 6:32 AM [facility] REPOSITORY TYPE CODE TESTS RESULT OUT OF REFERENCE UNITS RANGE LAB TP 6.3-8.0 g/dL Protein, Total 7.0 LAB ALB 3.9-4.9 g/dL Low Albumin 3.0 LAB CA 8.5-10.2 mg/dL Calcium, Total 8.7 LAB TBIL 0.2-1.3 mg/dL Bilirubin, Total 0.7 LAB ALKP 32-117 U/L Alkaline Phosphatase 77 LAB AST 13-35 U/L AST 13 LAB GLU 74-99 mg/dL Low Glucose 57 Result Comment: The [place] [employer] (ADA) provides guidance for cutoff [...] Standards of Medical Care in Diabetes 2016, [place] [employer]. Diabetes Care. 2016.39(Suppl 1). LAB [...] Performed By: #### PT, CMP, CBC #### [facility] [address] [place] [id number] CBC Collected: 08/21/2017 Status: F Source: [place] 6:32 AM [facility] REPOSITORY TYPE CODE TESTS RESULT [...] Performed By: #### PT, CMP, CBC #### [facility] [address] [place], [place] [address] PROGRESS Observed: 08/21/2017 Status: COMPLETED Source: [place] 4:22 AM [facility] [place] REPOSITORY HNO ID: [id number] Author: Downtime Note Service: (none) Author Type: (none) Type: Progress Notes Filed: 08/21/2017 4:26 AM Note Text: Epic Scheduled Downtime: 08/20/2017 11:34:32 PM to 08/21/2017 4:17:42 AM HX ANTIBODY Collected: 08/20/2017 Status: P Source: [facility] 1:34 PM [facility] REPOSITORY TYPE CODE TESTS RESULT OUT OF RANGE REFERENCE UNITS LAB TPI(LOINC) Unknown Hx Antibody Anti-JkA Result Comment: 08/20/2017 13:36 [address] [facility] notified us they identified Anti-Jka on 08-19-17 Performed By: #### HXANTI #### [facility] [address] [place] [id number] CASE MGT INIT Observed: 08/20/2017 Status: COMPLETED Source: [facility] 10:33 AM [facility] REPOSITORY HNO ID: [id number] Author: Quyen (Rn) ROMÁN Ansari Service: Care Management Author Type: Registered Nurse Type: Care Mgt Initial Assessment Filed: 08/20/2017 10:39 AM Note Text: CARE MANAGEMENT: ASSESSMENT AND DISCHARGE PLAN SERVICE DATE: 08/20/2017 SERVICE TIME: 10:33 AM PRIMARY CARE PHYSICIAN: Mary Ramirez DO ADMISSION STATUS: Inpatient Needs Prior to Discharge: To Be Determined 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 No SOCIAL: Living Arrangement: Home Lives With: Spouse Financial Resources: Retired Primary Contact: Extended Emergency Contact Information Primary Emergency Contact: Simon Cain Address: [address] [place] [address] Relation: Spouse Supportive: Yes Other Important Patient [...] 0 I feel financially burdened by my wqk-jg-xhiiii expenses for my prescription medication: Agree somewhat [...] EXPLAINED: N/A POTENTIAL TRANSITION PLANS Diabetic Education physical therapy manager met with patient at bedside. Explained role of plan coordinator and discharge planning. Pt 's discussion concerning cost of insulin pens. Inquired if patient has check different pharmacies or stores for cost of insulin pens, Also advised Need for consult with diabetic education. Will page doctor for patients needs. ? SIGNATURE: Quyen Ansari RN PATIENT NAME: Kalyn Cain DATE: August 20, 2017 TIME: 10:33 AM PAGER/CONTACT #: [phone] XR CHEST 2V FRONTAL/LAT Observed: 08/20/2017 Status: F Source: [place] 9:29 AM [facility] REPOSITORY * * *Final Report* [...] of the thoracic spine. IMPRESSION: See Result. Dairy Processing Supervisor: PSCKelley Transcribe Date/Time: Aug 20 2017 10:56A Dictated by : ABELINO FERNANDEZ MD This examination was interpreted and the report reviewed and electronically signed by: ABELINO FERNANDEZ MD on Aug 20 2017 11:00AM EST [id number] TROPONIN T Collected: 08/20/2017 Status: F Source: [place] 8:56 AM [facility] REPOSITORY TYPE CODE TESTS RESULT OUT OF REFERENCE UNITS RANGE LAB TROPT 0.000-0.029 ng/mL Troponin T <0.010 Performed By: #### PRATIMA #### [facility] [address] [place], [place] [address] PROTIME Collected: 08/20/2017 Status: F Source: [place] 4:01 AM [facility] REPOSITORY TYPE CODE TESTS RESULT OUT OF RANGE REFERENCE UNITS LAB PSEC 9.7-13.0 sec PT Sec 12.5 LAB INR 0.9-1.3 PT INR 1.2 Result Comment: Vitamin K Antagonist (VKA) Therapeutic Range: INR 2 to 3 (Target INR of 2.5) Note: For patients treated with VKA drugs, such as warfarin, the [place] [employer] 2012 Guideline recommends [...] Performed By: #### PT, CBC, CMP #### [facility] [address] [place], [place] [address] CBC Collected: 08/20/2017 Status: F Source: [place] 4:01 [facility] REPOSITORY TYPE CODE TESTS RESULT OUT [...] Performed By: #### PT, CBC, CMP #### [facility] [address] [place], [place] [address] COMP METABOLIC PANEL Collected: 08/20/2017 Status: F Source: [place] 4:01 [facility] REPOSITORY TYPE CODE TESTS RESULT OUT [...] mg/dL Glucose High 104 Result Comment: The [place] Diabetes Association (ADA) provides guidance for cutoff [...] Standards of Medical Care in Diabetes 2016, [place] [employer]. Diabetes Care. 2016.39(Suppl 1). LAB [...] #### PT, CBC, CMP #### [facility] [address] [place] [id number] D DIMER Collected: 08/20/2017 Status: F Source: [place] 4:01 AM [facility] REPOSITORY TYPE CODE TESTS RESULT [...] of specimen. Performed By: #### DDMER #### [facility] [place] [id number] TROPONIN T Collected: 08/20/2017 Status: F Source: [place] 4:00 AM [facility] REPOSITORY TYPE CODE TESTS RESULT OUT OF REFERENCE UNITS RANGE LAB TROPT 0.000-0.029 ng/mL Troponin T <0.010 Performed By: #### PRATIMA #### [place] [address] NURSING PROG Observed: 08/19/2017 Status: COMPLETED Source: [place] 10:21 PM [facility] REPOSITORY HNO ID: [id number] Author: Annabelle (Rn) ROMÁN Montero Service: (none) Author Type: Registered Nurse Type: Nursing Progress Note Filed: 08/19/2017 10:22 PM Note Text: Nursing Progress Note Patient Name: Kalyn Cain Patient Location: [address] Transfer Note: Patient transferred into room/unit G100-36. Actions taken: Patient lying comfortably in bed. Oriented to room, shown hospital phone and call light. Bed in low position. Bed alarm on for first 24 hours. This note was completed by: Annabelle Montero RN HISTORY PHYSICAL Observed: 08/19/2017 Status: COMPLETED Source: [place] 10:18 PM [facility] REPOSITORY HNO ID: [id number] Author: Salvador Forrester Service: Hepatology Author Type: Physician Type: HANDP Filed: 08/20/2017 4:25 PM Note Text: HEPATOLOGY -GREEN TEAM History and Physical PATIENT NAME: Kalyn Cain SERVICE DATE: 08/19/2017 SERVICE TIME: 10:18 PM PRIMARY TEAM: Hepatology Weekdays 7 am to 5 pm/Weekend 7 am to 3 pm: Page [phone] (News Camera Person- Richard Morgan) then [phone] (Senior- Clement Chester) Weekdays 5 pm to 7 am/Weekend 3 pm to 7 am: Coke Still Cleaner Pager [phone] PRIMARY CARE PHYSICIAN: Mary Ramirez DO Chief [...] Pearson -CAD s/p CABG x4 (03/2004), h/o HI s/p defib placement, on ASA AND plavix -HF? No echo on EPID (on lasix 40mg BID) -DMT2 -CKD Curnc2h -Chronic macrocytic anemia Patient presented to ED [...] 99% on RA. 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 EKG w/ no ST segment changes. 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 No echo on EPID (on lasix 40mg BID), DMT2, CKD Sxvgp1c, macrocytic anemia who presents with #Volume overload [...] TSH #CAD s/p CABG x4 (03/2004), h/o HI - continue ASA, plavix #CKD Stage 4 [...] August 19, 2017 TIME: 10:18 PM PAGER: [phone] Note: These recommendations are not final until staffed by provider SENIOR ONLINE MARKETER ADDENDUM I have reviewed the excellent history [...] female with HCC cirrhosis c/b EV, pHTN, HI s/p ICD, CAD s/p CABG x 4 [...] 67F with HCC cirrhosis c/b EV, pHTN, HI s/p ICD, CAD s/p CABG x 4 [...] ? Signature: Harley Monreal PGY-3 IM pager: [phone] August 20, 2017 6:37 AM I have seen and evaluated the patient and discussed the case with the resident physician. I agree with the assessment and plan as documented in the resident?s note. She needs cardiopulmonary evaluation, especially (bubble) ECHO. Careful titration of diuretics in the face of renal impairment. Dr White takes over service at 5PM. Salvador Forrester MD [facility] [place] Observed: 08/19/2017 Status: COMPLETED Source: [place] 9:33 PM [facility] REPOSITORY HNO ID: [id number] Author: Nayana Camp RN Service: Emergency Medicine Author Type: Registered Nurse Type: ED Notes Filed: 08/19/2017 9:33 PM Note Text: Report called to Annabelle FRANCE. ED NOTE Observed: 08/19/2017 Status: COMPLETED Source: [place] 8:49 PM [facility] [place] REPOSITORY HNO ID: [id number] Author: Vianney McduffieRn) ROMÁN Nielson Service: (none) Author Type: Registered Nurse Type: ED Notes Filed: 08/19/2017 8:50 PM Note Text: Pt to and from RR via wheelchair; NAD, ABC's intact. ED NOTE Observed: 08/19/2017 Status: COMPLETED Source: [place] 6:23 PM [facility] [place] REPOSITORY HNO ID: [id number] Author: Nayana Whittaker) ROMÁN Camp Service: Emergency Medicine Author Type: Registered Nurse Type: ED Notes Filed: 08/19/2017 6:23 PM Note Text: Pt's states she started to feel dizzy, patients BS 45. Pt given fruit juices and snacks. Will continue to monitor. CT ABD/PEL WO IVCON Observed: 08/19/2017 Status: F Source: [place] 5:47 PM [facility] REPOSITORY * * *Final Report* * * DATE OF EXAM: Aug 19 2017 5:47PM [facility] 0531 - CT ABD/PEL WO IVCON / [...] PELVIS. CHANGES OF CIRRHOSIS AND PORTAL HYPERTENSION. Dairy Processing Supervisor: PSCB Transcribe Date/Time: Aug 19 2017 5:59P Dictated by : OTTONIEL CRENSHAW MD This examination was interpreted and the report reviewed and electronically signed by: ISABELL IVERSON JR, MD on Aug 19 2017 6:30PM EST [id number] ED NOTE Observed: 08/19/2017 Status: COMPLETED Source: [place] 5:36 PM [facility] REPOSITORY HNO ID: [id number] Author: Nayana McduffieRn) ROMÁN Camp Service: Emergency Medicine Author Type: Registered Nurse Type: ED Notes Filed: 08/19/2017 5:36 PM Note Text: Pt to CT scan via bed, in stable condition. Will continue to monitor. CONFIRM BLOOD TYPE Collected: 08/19/2017 Status: F Source: [place] 5:30 PM [facility] [place] REPOSITORY TYPE CODE TESTS RESULT OUT OF REFERENCE UNITS RANGE LAB %ABR O ABO/RH(D) POSITIVE Performed By: #### CONABO #### [facility] [address] [place], [place] [address] ED NOTE Observed: 08/19/2017 Status: COMPLETED Source: [place] 5:25 PM [facility] REPOSITORY HNO ID: [id number] Author: Nayana McduffieRn) ROMÁN Camp Service: Emergency Medicine Author Type: Registered Nurse Type: ED Notes Filed: 08/19/2017 5:25 PM Note Text: Will need CON ABO if giving blood products. PROGRESS Observed: 08/19/2017 Status: COMPLETED Source: [place] 4:41 PM [facility] REPOSITORY HNO ID: [id number] Author: Bharat Rodríguez (Rt) Service: (none) Author Type: Log Manager Type: Progress Notes Filed: 08/19/2017 5:42 PM [...] PM PROGRESS Observed: 08/19/2017 Status: COMPLETED Source: [place] 3:40 PM [facility] REPOSITORY HNO ID: [id number] Author: Mary McduffieRtSulma Mishra Service: Radiology Author Type: Log Manager Type: Progress Notes Filed: 08/19/2017 3:40 PM [...] 2V FRONTAL/LAT Observed: 08/19/2017 Status: F Source: [place] 3:36 PM [facility] REPOSITORY * * *Final Report* [...] acute osseous abnormality. IMPRESSION: Mild interstitial edema. Dairy Processing Supervisor: PSCB Transcribe Date/Time: Aug 19 2017 3:39P Dictated by : OTTONIEL CRENSHAW MD This examination was interpreted and the report reviewed and electronically signed by: MARLY RANGEL MD on Aug 19 2017 3:41PM EST [id number] CBC AND DIFFERENTIAL Collected: 08/19/2017 Status: F Source: [place] 3:11 PM [facility] [place] REPOSITORY TYPE CODE TESTS RESULT OUT OF [...] Abs Low Lymph 0.98 LAB AMONO % Grimes% 5.2 LAB AAMONO <0.87 k/uL Abs Grimes 0.31 LAB AEOS % Eosin% 6.0 LAB AAEOS <0.46 k/uL Abs Eosin 0.36 LAB ABASO % Baso% 0.8 LAB AABASO <0.11 k/uL Abs Baso 0.05 LAB AUNRBC 0 /100 WBC NRBCs 0.0 LAB ABNRBC <0.01 k/uL Absolute nRBC <0.01 LAB DTYP DTYPE Auto Diff Performed By: #### CBCDIF, PT, BMP, HFP #### [facility] [address] [place], [place] [address] PROTIME Collected: 08/19/2017 Status: F Source: [place] 3:11 PM [facility] REPOSITORY TYPE CODE TESTS RESULT OUT OF RANGE REFERENCE UNITS LAB PSEC 9.7-13.0 sec PT Sec 12.2 LAB INR 0.9-1.3 PT INR 1.2 Result Comment: Vitamin K Antagonist (VKA) Therapeutic Range: INR 2 to 3 (Target INR of 2.5) Note: For patients treated with VKA drugs, such as warfarin, the [place] [employer] Chest Physicians 2012 Guideline recommends [...] Chest 2012, 141:7S-47S Joce RA, et al. [facility] 2017, 70: 252-289 Performed By: #### CBCDIF, PT, BMP, HFP #### [facility] [address] [place] [address] BASIC METABOLIC PANL Collected: 08/19/2017 Status: F Source: [place] 3:11 PM [facility] REPOSITORY TYPE CODE TESTS RESULT OUT OF REFERENCE UNITS RANGE LAB GLU 74-99 mg/dL Glucose 94 Result Comment: The [place] Diabetes Association (ADA) provides guidance for cutoff [...] Standards of Medical Care in Diabetes 2016, [place] [employer]. Diabetes Care. 2016.39(Suppl 1). LAB [...] By: #### CBCDIF, PT, BMP, HFP #### [facility] [address] [place], [place] [address] HEPATIC FUNCTN PANEL Collected: 08/19/2017 Status: F Source: [place] 3:11 PM [facility] REPOSITORY TYPE CODE TESTS RESULT [...] By: #### CBCDIF, PT, BMP, HFP #### [facility] [address] [place], [place] [address] NT PRO BNP Collected: 08/19/2017 Status: F Source: [place] 3:11 PM [facility] REPOSITORY TYPE CODE TESTS RESULT OUT OF REFERENCE UNITS RANGE LAB PBNP <125 pg/mL High PRO B Natr 3472 Peptide Performed By: #### NTBNP, PRATIMA #### [facility] [address] [place] [id number] TROPONIN T Collected: 08/19/2017 Status: F Source: [place] 3:11 PM [facility] REPOSITORY TYPE CODE TESTS RESULT OUT OF REFERENCE UNITS RANGE LAB TROPT 0.000-0.029 ng/mL Troponin T <0.010 Performed By: #### NTBNP, PRATIMA #### [facility] [address] [place], [place] [address] TYPE AND SCREEN Collected: 08/19/2017 Status: F Source: [place] 3:11 PM [facility] REPOSITORY TYPE CODE TESTS RESULT OUT OF REFERENCE UNITS RANGE LAB %ABR O ABO/RH(D) POSITIVE LAB % Antibody Screen POS LAB %BAO Antibody Identified Result Comment: ANTIBODY REACTIVITY, No Apparent Specificity. ANTI-Cw PRESENT. Performed By: #### TSCR #### [place] [address] RBC ANTIBODY INTERP Collected: 08/19/2017 Status: F Source: [place] (LAB ORDERED) 3:11 PM [facility] REPOSITORY TYPE CODE TESTS RESULT OUT OF REFERENCE UNITS RANGE LAB ABINT Antibody (NOTE) Interp Result Comment: History obtained form [facility] reveals that the patient is known [...] Physician Signed by Review Colleen Garrison MD ([id number]) Performed By: #### ABINTB #### [facility] [address] [place], [place] [address] ED NOTE Observed: 08/19/2017 Status: COMPLETED Source: [place] 3:06 PM [facility] REPOSITORY HNO ID: [id number] Author: Nayana McduffieRn) ROMÁN Camp Service: Emergency Medicine Author Type: Registered Nurse Type: ED Notes Filed: 08/19/2017 3:06 PM Note Text: Medic at bedside gaining IV access. Will follow up. ED PROV NOTE Observed: 08/19/2017 Status: COMPLETED Source: [place] 2:55 PM [facility] REPOSITORY HNO ID: [id number] Author: Alexei Schaffer MD Service: Emergency Medicine Author Type: Physician Type: ED Provider Notes Filed: 08/21/2017 4:43 PM Note Text: ED Provider Note Patient Name: Kalyn Cain SERVICE DATE: 08/19/17 History Patient presents with: Shortness of Breath HPI Comments: A 67-year-old female with past medical history of liver cirrhosis due to chronic hepatitis C, esophageal varices, portal hypertension, HI s/p defibrillator placement, CAD s/p CABG x [...] dysuria, gross hematuria. History provided by: Patient motor setter used: No PMH: Hep C, portal HTN, [...] other components within normal limits Narrative: Meter ID:[id number] GLUCOSE, BLOOD (POC) - Abnormal; Notable for the following: Glucose, Point of Care 126 (*) 74 - 99 mg/dL All other components within normal limits Narrative: Meter ID:[id number] PROTHROMBIN TIME/PT TROPONIN T GLUCOSE - ED(POC) GLUCOSE, BLOOD (POC) Narrative: Meter ID:[id number] TYPE + SCREEN CONFIRM BLOOD TYPE Procedures [...] PELVIS. CHANGES OF CIRRHOSIS AND PORTAL HYPERTENSION. Dairy Processing Supervisor: GISELLE Transcribe Date/Time: Aug 19 2017 5:59P Dictated by : OTTONIEL CRENSHAW MD This examination was interpreted and the report reviewed and electronically signed by: ISABELL IVERSON JR, MD on Aug 19 2017 6:30PM EST XR CHEST 2V FRONTAL/LAT Final Result IMPRESSION: Mild interstitial edema. Dairy Processing Supervisor: PSC Transcribe Date/Time: Aug 19 2017 3:39P [...] AV dual-paced rhythm with prolonged AV conduction, MN interval 250 ms, and QTc of 477 [...] of the patient and have reviewed the VP/PA/COUNTER FORMER note. My grady findings include: 67 year old female here with hx of cirrhosis, presenting with fluid overload and SOB. SOB worsening slowly over past few weeks. No chest pain. +abd distention. Also c/o leg edema. Mild worsening over Last 2 weeks. States has been seen by her needle loom operator at her hometown. Told it was not [...] scan obtained, at the request of patient's hand potter. At this time, discussed with and admitted [...] ED NOTE Observed: 08/19/2017 Status: COMPLETED Source: [place] 2:39 PM [facility] REPOSITORY HNO ID: [id number] Author: Vianney (Rn) ROMÁN Nielson Service: (none) Author Type: Registered Nurse Type: ED Notes Filed: 08/19/2017 2:39 PM Note Text: Pt referred to ED for SOB from swollen liver seen on recent CT scan at OSH per MD García. Hx Hepatic cirrhosis. C/o abd pain. ECG in progress. AANDO, NAD< ABC's intact, MAEx4. CNPN Observed: 08/19/2017 Status: COMPLETED Source: [place] 12:00 AM [facility] REPOSITORY Telephone (GASTMN) KALYN CAIN ([id number]) 1950 F Date Time Provider Department 08/19/17 ZAC PEARSON GASTKY During your visit today, we recorded the following information about you: [facility] [place] 08/19/2017 8:59 AM Signed Patient phones requesting [...] provider (not yet sent) [facility] [place] Zac Pearson MD 08/19/2017 11:19 AM Addendum Lillie, please call pt/spouse She has cirrhosis She needs to come to our [facility] ER now for evaluation MD Yazmin Montalvo [...] ABDOMEN W/O Observed: 08/05/2017 Status: F Source: [employer] CONTRAST 1:15 PM [facility] ORIGINAL CT [...] 1 VIEW Observed: 08/01/2017 Status: F Source: [facility] 7:50 AM [facility] REPOSITORY ORIGINAL XR CHEST 1 VIEW CLINICAL [...] AM CBC Collected: 08/01/2017 Status: F Source: [facility] 7:30 AM [facility] REPOSITORY TYPE CODE TESTS RESULT [...] TROP, PBNP, GFR, BMP, ABOG, ANSG #### [address] [address] #### ANTID, AUTC #### [address] [address] .AUTO DIFF Collected: 08/01/2017 Status: F Source: [facility] 7:30 AM [facility] REPOSITORY TYPE CODE TESTS RESULT [...] TROP, PBNP, GFR, BMP, ABOG, ANSG #### [address] [address] #### ANTID, AUTC #### [address] [address] .NEUABS Collected: 08/01/2017 Status: F Source: [facility] 7:30 AM [facility] REPOSITORY TYPE CODE TESTS RESULT OUT OF REFERENCE UNITS RANGE LAB ANEU(LOINC) 2.85-6.16 10 3/mcL Neutrophil, 4.40 Absolute Performed By: #### CBC, ADIFF, ANEU, APTT, PRO, TROP, PBNP, GFR, BMP, ABOG, ANSG #### [address] [address] #### ANTID, AUTC #### [address] [address] APTT Collected: 08/01/2017 Status: F Source: [facility] 7:30 AM [facility] REPOSITORY TYPE CODE TESTS RESULT [...] TROP, PBNP, GFR, BMP, ABOG, ANSG #### [address] [address] #### ANTID, AUTC #### [address] [address] PRO Collected: 08/01/2017 Status: F Source: [facility] 7:30 AM [facility] REPOSITORY TYPE CODE TESTS RESULT [...] TROP, PBNP, GFR, BMP, ABOG, ANSG #### [address] [address] #### ANTID, AUTC #### [address] [address] TROP Collected: 08/01/2017 Status: F Source: [facility] 7:30 AM [facility] REPOSITORY TYPE CODE TESTS RESULT OUT OF REFERENCE UNITS RANGE LAB TROP(LOINC) 0.00-0.30 ng/mL Troponin <0.30 Result Comment: Below measuring range >=0.30 Consistent with cardiac damage, increased clinical risk and possibility of myocardial infarction. Serial measurements, clinical history, appropriate symptoms and/or ECG changes may help assess possibility of HI. *Other non-acute coronary syndrome conditions such as CHF, myocarditis, pulmonary emboli, sepsis and cardiac surgery could result in myocardial damage and increased troponin levels. Performed By: #### CBC, ADIFF, ANEU, APTT, PRO, TROP, PBNP, GFR, BMP, ABOG, ANSG #### [address] [address] #### ANTID, AUTC #### [address] [address] PBNP Collected: 08/01/2017 Status: F Source: [facility] 7:30 AM [facility] REPOSITORY TYPE CODE TESTS RESULT OUT OF REFERENCE UNITS RANGE LAB PBNP(LOINC) 5.0-300.0 pg/mL High N-Terminal 2708.0 proBNP Result Comment: In the presence of acute dyspnea, CHF likely if: Age <50 years: >450 pg/mL Age 50-75 years: >900 pg/mL Age >75 years: >1800 pg/mL Performed By: #### CBC, ADIFF, ANEU, APTT, PRO, TROP, PBNP, GFR, BMP, ABOG, ANSG #### [address] [address] #### ANTID, AUTC #### [address] [address] .GFR Collected: 08/01/2017 Status: F Source: [facility] 7:30 AM [facility] REPOSITORY TYPE CODE TESTS RESULT OUT OF REFERENCE UNITS RANGE LAB GFRAA(LOINC ml/min/1.73 ) sqm GFR 30 [place] Citizen Result Comment: GFR Population mean for , [...] TROP, PBNP, GFR, BMP, ABOG, ANSG #### [address] [address] #### ANTID, AUTC #### [address] [address] BMP Collected: 08/01/2017 Status: F Source: [facility] 7:30 AM [facility] REPOSITORY TYPE CODE TESTS RESULT [...] TROP, PBNP, GFR, BMP, ABOG, ANSG #### [address] [address] #### ANTID, AUTC #### [address] [address] GEL ABO Collected: 08/01/2017 Status: F Source: [facility] 7:30 AM [facility] REPOSITORY TYPE CODE TESTS RESULT OUT OF RANGE REFERENCE UNITS LAB ABORH(LOINC ) Unknown ABO/Rh O POS Interp Performed By: #### CBC, ADIFF, ANEU, APTT, PRO, TROP, PBNP, GFR, BMP, ABOG, ANSG #### [address] [address] #### ANTID, AUTC #### [place] [id number] GEL ABS Collected: 08/01/2017 Status: F Source: [facility] 7:30 AM [facility] REPOSITORY TYPE CODE TESTS RESULT OUT OF REFERENCE UNITS RANGE LAB ANSG(LOINC ) Antibody Positive ABSC Screen Gel Performed By: #### CBC, ADIFF, ANEU, APTT, PRO, TROP, PBNP, GFR, BMP, ABOG, ANSG #### [address] [address] #### ANTID, AUTC #### [address] [address] ABID Collected: 08/01/2017 Status: P Source: [facility] 7:30 AM [facility] REPOSITORY Order Comment: Ordered by Discern Expert TYPE CODE TESTS RESULT OUT OF RANGE REFERENCE UNITS LAB ANTID(LOIN C) Unknown Antibody ID Result Comment: Anti-E Inconclusive Anti-FyA Performed By: #### CBC, ADIFF, ANEU, APTT, PRO, TROP, PBNP, GFR, BMP, ABOG, ANSG #### [address] [address] #### ANTID, AUTC #### [place] [id number] AUTO Collected: 08/01/2017 Status: F Source: [facility] 7:30 AM [facility] REPOSITORY Order Comment: Ordered by Discern Expert TYPE CODE TESTS RESULT OUT OF REFERENCE UNITS RANGE LAB AUTO(LOINC ) Auto Control Negative Performed By: #### CBC, ADIFF, ANEU, APTT, PRO, TROP, PBNP, GFR, BMP, ABOG, ANSG #### [address] [address] #### ANTID, AUTC #### [address] [address] XR CHEST 1 VIEW Observed: 07/26/2017 Status: F Source: [facility] 11:10 AM [facility] REPOSITORY ORIGINAL XR CHEST 1 VIEW PORTABLE [...] AM CBC Collected: 07/26/2017 Status: F Source: [facility] 10:46 AM [facility] REPOSITORY TYPE CODE TESTS RESULT [...] CBC, ADIFF, ANEU, TROP, GFR, BMP #### [place] [id number] .AUTO DIFF Collected: 07/26/2017 Status: F Source: [facility] 10:46 AM [facility] REPOSITORY TYPE CODE TESTS RESULT [...] CBC, ADIFF, ANEU, TROP, GFR, BMP #### [place] [address] .NEUABS Collected: 07/26/2017 Status: F Source: [facility] 10:46 [facility] REPOSITORY TYPE CODE TESTS RESULT OUT OF REFERENCE UNITS RANGE LAB ANEU(LOINC) 2.85-6.16 10 3/mcL Neutrophil, 3.60 Absolute Performed By: #### CBC, ADIFF, ANEU, TROP, GFR, BMP #### [place] [address] TROP Collected: 07/26/2017 Status: F Source: [facility] 10:46 AM [facility] REPOSITORY TYPE CODE TESTS RESULT OUT OF REFERENCE UNITS RANGE LAB TROP(LOINC) 0.00-0.30 ng/mL Troponin <0.30 Result Comment: Below measuring range >=0.30 Consistent with cardiac damage, increased clinical risk and possibility of myocardial infarction. Serial measurements, clinical history, appropriate symptoms and/or ECG changes may help assess possibility of HI. *Other non-acute coronary syndrome conditions such as CHF, myocarditis, pulmonary emboli, sepsis and cardiac surgery could result in myocardial damage and increased troponin levels. Performed By: #### CBC, ADIFF, ANEU, TROP, GFR, BMP #### [place] [address] [address] .GFR Collected: 07/26/2017 Status: F Source: [facility] 10:46 AM [facility] REPOSITORY TYPE CODE TESTS RESULT OUT OF REFERENCE UNITS RANGE LAB GFRAA(LOINC ml/min/1.73 ) sqm GFR 34 [place] Citizen Result Comment: GFR Population mean for , [...] ADIFF, ANEU, TROP, GFR, BMP #### [place] [address] [address] BMP Collected: 07/26/2017 Status: F Source: [facility] 10:46 AM [facility] REPOSITORY TYPE CODE TESTS RESULT [...] CBC, ADIFF, ANEU, TROP, GFR, BMP #### [place] [address] [place], [place] [address] PBNP Collected: 07/26/2017 Status: F Source: [employer] 10:46 AM [facility] REPOSITORY TYPE CODE TESTS RESULT OUT OF REFERENCE UNITS RANGE LAB PBNP(LOINC) 5.0-300.0 pg/mL High N-Terminal 2373.0 proBNP Result Comment: In the presence of acute dyspnea, CHF likely if: Age <50 years: >450 pg/mL Age 50-75 years: >900 pg/mL Age >75 years: >1800 pg/mL Performed By: #### PBNP #### [address] [address] CBC Collected: 07/22/2017 Status: F Source: [employer] 11:24 AM [facility] REPOSITORY TYPE CODE TESTS RESULT [...] #### CBC, ADIFF, ANEU, CMP, GFR #### [place] [address] .AUTO DIFF Collected: 07/22/2017 Status: F Source: [facility] 11:24 AM [facility] REPOSITORY TYPE CODE TESTS RESULT [...] #### CBC, ADIFF, ANEU, CMP, GFR #### [place] [address] .NEUABS Collected: 07/22/2017 Status: F Source: [facility] 11:24 AM [facility] REPOSITORY TYPE CODE TESTS RESULT OUT OF REFERENCE UNITS RANGE LAB ANEU(LOINC) 2.25-8.10 10 3/mcL Neutrophil, 4.10 Absolute Performed By: #### CBC, ADIFF, ANEU, CMP, GFR #### [place] [address] CMP Collected: 07/22/2017 Status: F Source: [facility] 11:24 AM [facility] REPOSITORY TYPE CODE TESTS RESULT [...] #### CBC, ADIFF, ANEU, CMP, GFR #### [place] [address] .GFR Collected: 07/22/2017 Status: F Source: [facility] 11:24 AM [facility] REPOSITORY TYPE CODE TESTS RESULT OUT OF REFERENCE UNITS RANGE LAB GFRAA(LOINC ml/min/1.73 ) sqm GFR 34 [place] Citizen Result Comment: GFR Population mean for , [...] #### CBC, ADIFF, ANEU, CMP, GFR #### [place] [address] CT THORAX W/O Observed: 07/22/2017 Status: F Source: [employer] CONTRAST 10:54 AM [facility] ORIGINAL CT [...] AM CNOV Observed: 07/16/2017 Status: COMPLETED Source: [place] 3:10 PM [facility] REPOSITORY Office Visit (GASTA5) KALYN CAIN ([id number]) 1950 F Date Time Provider Department 07/16/17 [...] she has a f/u appt with her paper pattern inspector locally and told her that I will ask my personal secretary to mail the lab results to [...] next OV Zac Pearson MD Referring Provider: JOSEMANUEL GALLEGO [[id number]] Allergies As of Date: 07/16/2017 Noted Allergy [...] QUANT RNA BY PCR [SQHCQPCR] Order #: [id number] FUTURE PROTHROMBIN TIME/PT [SQPT] Order #: [id number] FUTURE CBC + DIFF [SQCBCDIF] Order #: [id number] FUTURE HEPATIC FUNCTION PNL [SQHFP] Order #: [id number] FUTURE US ABD RT UPPER QUADRANT [[id number]] Order #: [id number] FUTURE Prescriptions as of 07/16/2017 Sig: VITAMIN [...] 07/16/17 PROTIME Collected: 07/16/2017 Status: F Source: [place] 2:35 PM [facility] REPOSITORY TYPE CODE TESTS RESULT OUT OF RANGE REFERENCE UNITS LAB PSEC 9.7-13.0 sec PT Sec 11.4 LAB INR 0.9-1.3 PT INR 1.1 Result Comment: Vitamin K Antagonist (VKA) Therapeutic Range: INR 2 to 3 (Target INR of 2.5) Note: For patients treated with VKA drugs, such as warfarin, the [place] [employer] 2012 Guideline recommends [...] Chest 2012, 141:7S-47S Joce SMITH, et al. [facility] 2017, 70: 252-289 Performed By: #### PT, CBCDIF, HFP, HCQPCR #### [facility] [address] [place], [place] [address] CBC AND DIFFERENTIAL Collected: 07/16/2017 Status: F Source: [place] 2:35 PM [facility] REPOSITORY TYPE CODE TESTS RESULT [...] Low Abs Lymph 0.99 LAB AMONO % Grimes% 5.3 LAB AAMONO <0.87 k/uL Abs Grimes 0.29 LAB AEOS % Eosin% 6.0 LAB AAEOS <0.46 k/uL Abs Eosin 0.33 LAB ABASO % Baso% 0.7 LAB AABASO <0.11 k/uL Abs Baso 0.04 LAB AUNRBC 0 /100 WBC NRBCs High 0.2 LAB ABNRBC <0.01 k/uL High Absolute nRBC 0.01 LAB DTYP DTYPE Auto Diff Performed By: #### PT, CBCDIF, HFP, HCQPCR #### [place] [address] [place] [id number] HEPATIC FUNCTN PANEL Collected: 07/16/2017 Status: F Source: [place] 2:35 PM [facility] REPOSITORY TYPE CODE TESTS RESULT [...] By: #### PT, CBCDIF, HFP, HCQPCR #### [place] [address] HEPATITIS C RNA Collected: 07/16/2017 Status: F Source: [place] 2:35 [facility] REPOSITORY TYPE CODE TESTS RESULT OUT OF REFERENCE UNITS RANGE LAB HCQPCR IU/mL Hepatitis C RNA HCV RNA not detected by PCR. Result Comment: Reference Range: Negative for HCV RNA The Linear Range of this assay is 15 IU/mL to 100,000,000 IU/mL. Performed By: #### PT, CBCDIF, HFP, HCQPCR #### [facility] [address] [place] [address] PROGRESS Observed: 07/16/2017 Status: COMPLETED Source: [place] 2:16 PM [facility] REPOSITORY HNO ID: [id number] Author: Zac Pearson Service: (none) Author Type: [...] she has a f/u appt with her paper pattern inspector locally and told her that I will ask my personal secretary to mail the lab results to [...] SPLEEN -NB Observed: 07/16/2017 Status: F Source: [place] 10:57 AM [facility] REPOSITORY * * *Final Report* [...] LIVER MORPHOLOGY. NO FOCAL HEPATIC LESIONS. SPLENOMEGALY. Dairy Processing Supervisor: PSCKelley Transcribe Date/Time: Jul 16 2017 11:00A Dictated by : NIGEL AUGUST DO This examination was interpreted and the report reviewed and electronically signed by: NIGEL AUGUST DO on Jul 16 2017 11:23AM EST [id number] US ABD RIGHT UPPER Observed: 07/16/2017 Status: F Source: [facility] 10:57 AM [facility] REPOSITORY * * *Final Report* [...] LIVER MORPHOLOGY. NO FOCAL HEPATIC LESIONS. SPLENOMEGALY. Dairy Processing Supervisor: GISELLE Transcribe Date/Time: Jul 16 2017 11:00A Dictated by : NIGEL AUGUST DO This examination was interpreted and the report reviewed and electronically signed by: NIGEL AUGUST DO on Jul 16 2017 11:23AM EST [id number] .GFR Collected: 07/13/2017 Status: F Source: [employer] 4:13 PM [facility] REPOSITORY TYPE CODE TESTS RESULT OUT OF REFERENCE UNITS RANGE LAB GFRAA(LOINC ml/min/1.73 ) sqm GFR 31 [place] Citizen Result Comment: GFR Population mean for , [...] meters Performed By: #### GFR, CMP #### [place] [address] [place], [place] [address] #### VIDH, CPEP #### [address] [address] VIDH Collected: 07/13/2017 Status: F Source: [facility] 4:13 PM [facility] REPOSITORY TYPE CODE TESTS RESULT OUT OF RANGE REFERENCE UNITS LAB VIDH(LOINC) ng/mL Vit. D 9 25-Hydroxy Result Comment: Interpretive Values Based on Total 25(OH)D: Severe Deficiency <20 ng/mL Mild to Moderate Deficiency 20-30 ng/mL Optimum Levels 30-100 ng/mL Toxicity Possible >100 ng/mL Performed By: #### GFR, CMP #### [address] [address] #### VIDH, CPEP #### [address] [address] CMP Collected: 07/13/2017 Status: F Source: [facility] 4:13 PM [facility] REPOSITORY TYPE CODE TESTS RESULT [...] 11 Performed By: #### GFR, CMP #### [place] [address] [place], [place] [address] #### VIDH, CPEP #### [address] [address] CPEP Collected: 07/13/2017 Status: F Source: [facility] 4:13 PM [facility] REPOSITORY TYPE CODE TESTS RESULT OUT OF RANGE REFERENCE UNITS LAB CPEP(LOINC) 1.0-7.6 ng/mL Low C-Peptide <0.1 Performed By: #### GFR, CMP #### [address] [address] #### VIDH, CPEP #### [address] [address] CBC Collected: 06/18/2017 Status: F Source: [facility] 2:39 PM [facility] REPOSITORY TYPE CODE TESTS RESULT [...] #### CBC, ADIFF, ANEU, GFR, CMP #### [place] [address] .AUTO DIFF Collected: 06/18/2017 Status: F Source: [facility] 2:39 [facility] REPOSITORY TYPE CODE TESTS RESULT OUT OF [...] #### CBC, ADIFF, ANEU, GFR, CMP #### [place] [address] .NEUABS Collected: 06/18/2017 Status: F Source: [facility] 2:39 [facility] REPOSITORY TYPE CODE TESTS RESULT OUT OF REFERENCE UNITS RANGE LAB ANEU(LOINC) 2.25-8.10 10 3/mcL Neutrophil, 4.80 Absolute Performed By: #### CBC, ADIFF, ANEU, GFR, CMP #### [place] [address] .GFR Collected: 06/18/2017 Status: F Source: [facility] 2:39 [facility] REPOSITORY TYPE CODE TESTS RESULT OUT OF REFERENCE UNITS RANGE LAB GFRAA(LOINC ml/min/1.73 ) sqm GFR 27 [place] Citizen Result Comment: GFR Population mean for , [...] #### CBC, ADIFF, ANEU, GFR, CMP #### [place] [address] CMP Collected: 06/18/2017 Status: F Source: [facility] 2:39 PM [facility] REPOSITORY TYPE CODE [...] #### CBC, ADIFF, ANEU, GFR, CMP #### [address] [address] BMP Collected: 06/09/2017 Status: F Source: [facility] 11:30 AM [facility] REPOSITORY TYPE CODE TESTS RESULT [...] Performed By: #### BMP, RFP, GFR #### [address] [address] RFP Collected: 06/09/2017 Status: F Source: [facility] 11:30 AM [facility] REPOSITORY TYPE CODE TESTS RESULT [...] Performed By: #### BMP, RFP, GFR #### [place] [address] .GFR Collected: 06/09/2017 Status: F Source: [facility] 11:30 AM [facility] REPOSITORY TYPE CODE TESTS RESULT OUT OF REFERENCE UNITS RANGE LAB GFRAA(LOINC ml/min/1.73 ) sqm GFR 27 [place] Citizen Result Comment: GFR Population mean for , [...] Performed By: #### BMP, RFP, GFR #### [place] [address] [place], [place] [address] CBC Collected: 06/07/2017 Status: F Source: [facility] 5:50 AM [facility] REPOSITORY TYPE CODE TESTS RESULT [...] #### CBC, ADIFF, ANEU, BMP, GFR #### [address] [address] .AUTO DIFF Collected: 06/07/2017 Status: F Source: [facility] 5:50 AM [facility] REPOSITORY TYPE CODE TESTS RESULT [...] #### CBC, ADIFF, ANEU, BMP, GFR #### [place] [address] .NEUABS Collected: 06/07/2017 Status: F Source: [facility] 5:50 AM [facility] REPOSITORY TYPE CODE TESTS RESULT OUT OF REFERENCE UNITS RANGE LAB ANEU(LOINC) 2.25-8.10 10 3/mcL Neutrophil, 3.80 Absolute Performed By: #### CBC, ADIFF, ANEU, BMP, GFR #### [place] [address] BMP Collected: 06/07/2017 Status: F Source: [facility] 5:50 AM [facility] REPOSITORY TYPE CODE TESTS RESULT [...] #### CBC, ADIFF, ANEU, BMP, GFR #### [address] [address] .GFR Collected: 06/07/2017 Status: F Source: [facility] 5:50 AM [facility] REPOSITORY TYPE CODE TESTS RESULT OUT OF REFERENCE UNITS RANGE LAB GFRAA(LOINC ml/min/1.73 ) sqm GFR 21 [place] Citizen Result Comment: GFR Population mean for , [...] #### GIOVANNI, ADIFF, ANEU, BMP, GFR #### [address] [address] BMP Collected: 06/06/2017 Status: F Source: [facility] 5:08 AM [facility] REPOSITORY TYPE CODE TESTS RESULT [...] #### BMP, GFR, CBC, ADIFF, ANEU #### [place] [address] .GFR Collected: 06/06/2017 Status: F Source: [facility] 5:08 AM [facility] REPOSITORY TYPE CODE TESTS RESULT OUT OF REFERENCE UNITS RANGE LAB GFRAA(LOINC ml/min/1.73 ) sqm GFR 16 [place] Citizen Result Comment: GFR Population mean for , [...] #### MANJU, GFR, CBC, ADIFF, ANEU #### [address] [address] CBC Collected: 06/06/2017 Status: F Source: [facility] 5:08 AM [facility] REPOSITORY TYPE CODE TESTS RESULT [...] #### MANJU, GFR, CBC, ADIFF, ANEU #### [address] [address] .AUTO DIFF Collected: 06/06/2017 Status: F Source: [facility] 5:08 AM [facility] REPOSITORY TYPE CODE TESTS RESULT [...] #### BMP, GFR, CBC, ADIFF, ANEU #### [place] [address] .NEUABS Collected: 06/06/2017 Status: F Source: [facility] 5:08 AM [facility] REPOSITORY TYPE CODE TESTS RESULT OUT OF REFERENCE UNITS RANGE LAB ANEU(LOINC) 2.25-8.10 10 3/mcL Neutrophil, 3.90 Absolute Performed By: #### BMP, GFR, CBC, ADIFF, ANEU #### [place] [address] RBC (PRODUCT) Collected: 06/05/2017 Status: F Source: [facility] 4:41 PM [facility] REPOSITORY TYPE CODE TESTS RESULT OUT OF REFERENCE UNITS RANGE LAB RBCPR(LOINC ) RBC Product RBC Ready Ready for Pickup Performed By: #### RBCP #### [place] [address] TABO Collected: 06/05/2017 Status: F Source: [facility] 11:00 AM [facility] REPOSITORY TYPE CODE TESTS RESULT OUT OF RANGE REFERENCE UNITS LAB ABORH(LOINC ) Unknown ABO/Rh O POS Interp Performed By: #### ABORH, ANTIS, AUTC, ANTID #### [place] [address] TABS Collected: 06/05/2017 Status: F Source: [facility] 11:00 AM [facility] REPOSITORY TYPE CODE TESTS RESULT OUT OF REFERENCE UNITS RANGE LAB ANST(LOINC ) Antibody Positive ABSC Screen Tango Performed By: #### ABORH, ANTIS, AUTC, ANTID #### [place] [address] AUTO Collected: 06/05/2017 Status: F Source: [facility] 11:00 AM [facility] REPOSITORY Order Comment: Ordered by Discern Expert TYPE CODE TESTS RESULT OUT OF REFERENCE UNITS RANGE LAB AUTO(LOINC ) Auto Control Negative Performed By: #### ABORH, ANTIS, AUTC, ANTID #### [address] [address] ABID Collected: 06/05/2017 Status: P Source: [facility] 11:00 AM [facility] REPOSITORY Order Comment: Ordered by Discern Expert TYPE CODE TESTS RESULT OUT OF RANGE REFERENCE UNITS LAB ANTID(LOIN C) Unknown Antibody ID Anti-E Performed By: #### ABORH, ANTIS, AUTC, ANTID #### [address] [address] CBC Collected: 06/05/2017 Status: F Source: [facility] 4:55 AM [facility] REPOSITORY TYPE CODE TESTS RESULT [...] #### CBC, ADIFF, ANEU, BMP, GFR #### [address] [address] .AUTO DIFF Collected: 06/05/2017 Status: F Source: [facility] 4:55 AM [facility] REPOSITORY TYPE CODE TESTS RESULT [...] #### CBC, ADIFF, ANEU, BMP, GFR #### [place] [address] .NEUABS Collected: 06/05/2017 Status: F Source: [facility] 4:55 AM [facility] REPOSITORY TYPE CODE TESTS RESULT OUT OF REFERENCE UNITS RANGE LAB ANEU(LOINC) 2.25-8.10 10 3/mcL Neutrophil, 2.50 Absolute Performed By: #### CBC, ADIFF, ANEU, BMP, GFR #### [place] [address] BMP Collected: 06/05/2017 Status: F Source: [facility] 4:55 AM [facility] REPOSITORY TYPE CODE TESTS RESULT [...] #### CBC, ADIFF, ANEU, BMP, GFR #### [address] [address] .GFR Collected: 06/05/2017 Status: F Source: [facility] 4:55 AM [facility] REPOSITORY TYPE CODE TESTS RESULT OUT OF REFERENCE UNITS RANGE LAB GFRAA(LOINC ml/min/1.73 ) sqm GFR 15 [place] Citizen Result Comment: GFR Population mean for , [...] #### CBC, ADIFF, ANEU, BMP, GFR #### [address] [address] CBC Collected: 06/04/2017 Status: F Source: [facility] 6:39 AM [facility] REPOSITORY TYPE CODE TESTS RESULT [...] CBC, ADIFF, ANEU, RFP, GFR, CMP #### [address] [address] .AUTO DIFF Collected: 06/04/2017 Status: F Source: [facility] 6:39 AM [facility] REPOSITORY TYPE CODE TESTS RESULT [...] CBC, ADIFF, ANEU, RFP, GFR, CMP #### [address] [address] .NEUABS Collected: 06/04/2017 Status: F Source: [facility] 6:39 AM [facility] REPOSITORY TYPE CODE TESTS RESULT OUT OF REFERENCE UNITS RANGE LAB ANEU(LOINC) 2.25-8.10 10 3/mcL Neutrophil, 3.20 Absolute Performed By: #### CBC, ADIFF, ANEU, RFP, GFR, CMP #### [address] [address] RFP Collected: 06/04/2017 Status: F Source: [facility] 6:39 AM [facility] REPOSITORY TYPE CODE TESTS RESULT [...] CBC, ADIFF, ANEU, RFP, GFR, CMP #### [address] [address] .GFR Collected: 06/04/2017 Status: F Source: [facility] 6:39 AM [facility] REPOSITORY TYPE CODE TESTS RESULT OUT OF REFERENCE UNITS RANGE LAB GFRAA(LOINC ml/min/1.73 ) sqm GFR 16 [place] Citizen Result Comment: GFR Population mean for , [...] CBC, ADIFF, ANEU, RFP, GFR, CMP #### [place] [address] CMP Collected: 06/04/2017 Status: F Source: [facility] 6:39 AM [facility] REPOSIT[facility] TYPE CODE [...] CBC, ADIFF, ANEU, RFP, GFR, CMP #### [address] [address] AGTY Collected: 06/03/2017 Status: P Source: [facility] 8:33 AM [facility] REPOSITORY TYPE CODE TESTS RESULT OUT OF RANGE REFERENCE UNITS LAB [id number] 23(LOINC) RT 0 LAB AGTY([facility] ) Unknown Antigen Type E- Performed By: #### AGTY #### [place] [address] CBC Collected: 06/03/2017 Status: F Source: [facility] 5:48 AM [facility] REPOSITORY TYPE CODE TESTS RESULT [...] #### CBC, ADIFF, ANEU, BMP, GFR #### [place] [address] .AUTO DIFF Collected: 06/03/2017 Status: F Source: [facility] 5:48 AM [facility] REPOSITORY TYPE CODE TESTS RESULT [...] #### CBC, ADIFF, ANEU, BMP, GFR #### [place] [address] .NEUABS Collected: 06/03/2017 Status: F Source: [facility] 5:48 AM [facility] REPOSITORY TYPE CODE TESTS RESULT OUT OF REFERENCE UNITS RANGE LAB ANEU(LOINC) 2.25-8.10 10 3/mcL Neutrophil, 3.40 Absolute Performed By: #### CBC, ADIFF, ANEU, BMP, GFR #### [place] [address] BMP Collected: 06/03/2017 Status: F Source: [facility] 5:48 AM [facility] REPOSITORY TYPE CODE TESTS RESULT [...] #### CBC, ADIFF, ANEU, BMP, GFR #### [place] [address] .GFR Collected: 06/03/2017 Status: F Source: [facility] 5:48 AM [facility] REPOSITORY TYPE CODE TESTS RESULT OUT OF REFERENCE UNITS RANGE LAB GFRAA(LOINC ml/min/1.73 ) sqm GFR 21 [place] Citizen Result Comment: GFR Population mean for , [...] #### CBC, ADIFF, ANEU, BMP, GFR #### [address] [address] RBC (PRODUCT) Collected: 06/03/2017 Status: F Source: [facility] 1:02 AM [facility] REPOSITORY TYPE CODE TESTS RESULT OUT OF REFERENCE UNITS RANGE LAB RBCPR(LOINC ) RBC Product RBC Ready Ready for Pickup Performed By: #### RBCP #### [address] [address] CBC Collected: 06/02/2017 Status: F Source: [facility] 10:39 PM [facility] REPOSITORY TYPE CODE TESTS RESULT [...] #### CBC, ADIFF, ANEU, BMP, GFR #### [address] [address] .AUTO DIFF Collected: 06/02/2017 Status: F Source: [facility] 10:39 PM [facility] REPOSITORY TYPE CODE TESTS RESULT [...] #### CBC, ADIFF, ANEU, BMP, GFR #### [place] [address] .NEUABS Collected: 06/02/2017 Status: F Source: [facility] 10:39 PM [facility] REPOSITORY TYPE CODE TESTS RESULT OUT OF REFERENCE UNITS RANGE LAB ANEU(LOINC) 2.25-8.10 10 3/mcL Neutrophil, 3.70 Absolute Performed By: #### CBC, ADIFF, ANEU, BMP, GFR #### [place] [address] BMP Collected: 06/02/2017 Status: F Source: [facility] 10:39 [facility] REPOSITORY TYPE CODE TESTS RESULT OUT OF [...] #### CBC, ADIFF, ANEU, BMP, GFR #### [address] [address] .GFR Collected: 06/02/2017 Status: F Source: [facility] 10:39 PM [facility] REPOSITORY TYPE CODE TESTS RESULT OUT OF REFERENCE UNITS RANGE LAB GFRAA(LOINC ml/min/1.73 ) sqm GFR 21 [place] Citizen Result Comment: GFR Population mean for , [...] #### CBC, ADIFF, ANEU, BMP, GFR #### [address] [address] TABO Collected: 06/02/2017 Status: F Source: [facility] 10:20 AM [facility] REPOSITORY TYPE CODE TESTS RESULT OUT OF RANGE REFERENCE UNITS LAB ABORH(LOINC ) Unknown ABO/Rh O POS Interp Performed By: #### ABORH, ANTIS, ANTID, AUTC, RBCP #### [place] [address] TABS Collected: 06/02/2017 Status: F Source: [facility] 10:20 AM [facility] REPOSITORY TYPE CODE TESTS RESULT OUT OF REFERENCE UNITS RANGE LAB ANST(LOINC ) Antibody Positive ABSC Screen Tango Performed By: #### ABORH, ANTIS, ANTID, AUTC, RBCP #### [place] [address] ABID Collected: 06/02/2017 Status: C Source: [facility] 10:20 AM [facility] REPOSITORY Order Comment: Ordered by Discern Expert TYPE CODE TESTS RESULT OUT OF RANGE REFERENCE UNITS LAB ANTID(LOIN C) Unknown Antibody ID Result Comment: Anti-E Anti-FyA Performed By: #### ABORH, ANTIS, ANTID, AUTC, RBCP #### [place] [address] AUTO Collected: 06/02/2017 Status: F Source: [facility] 10:20 AM [facility] REPOSITORY Order Comment: Ordered by Discern Expert TYPE CODE TESTS RESULT OUT OF REFERENCE UNITS RANGE LAB AUTO(LOINC ) Auto Control Negative Performed By: #### ABORH, ANTIS, ANTID, AUTC, RBCP #### [place] [address] RBC (PRODUCT) Collected: 06/02/2017 Status: F Source: [facility] 10:20 AM [facility] REPOSITORY TYPE CODE TESTS RESULT OUT OF REFERENCE UNITS RANGE LAB RBCPR(LOINC ) RBC Product RBC Ready Ready for Pickup Performed By: #### ABORH, ANTIS, ANTID, AUTC, RBCP #### [place] [address] PLATELET (PRODUCT) Collected: 06/02/2017 Status: F Source: [facility] 9:52 AM [facility] REPOSITORY TYPE CODE TESTS RESULT OUT OF REFERENCE UNITS RANGE LAB PPR(LOINC) Platelet Platelet Ready Product Ready for Pickup Performed By: #### PLTP #### [place] [address] CBC Collected: 06/02/2017 Status: F Source: [facility] 5:07 AM [facility] REPOSITORY TYPE CODE TESTS RESULT [...] GFR, B12, ADIFF, ANEU, MORPH, HCQPCR #### [place] [address] BMP Collected: 06/02/2017 Status: F Source: [facility] 5:07 AM [facility] REPOSITORY TYPE CODE TESTS RESULT [...] GFR, B12, ADIFF, ANEU, MORPH, HCQPCR #### [place] [address] FERR Collected: 06/02/2017 Status: F Source: [facility] 5:07 AM [facility] REPOSITORY TYPE CODE TESTS RESULT OUT OF REFERENCE UNITS RANGE LAB FERR(LOINC) 8-252 ng/mL Ferritin 110 Performed By: #### CBC, BMP, FERR, FES, GFR, B12, ADIFF, ANEU, MORPH, HCQPCR #### [place] [address] FES Collected: 06/02/2017 Status: F Source: [facility] 5:07 AM [facility] REPOSITORY TYPE CODE TESTS RESULT OUT OF RANGE REFERENCE UNITS LAB FE(LOINC) 37-170 mcg/dL Low Iron 17 LAB IBC(LOINC) 250-500 mcg/dL Low TIBC 240 LAB FESAT(LOINC % ) Iron Sat 7 Performed By: #### CBC, BMP, FERR, FES, GFR, B12, ADIFF, ANEU, MORPH, HCQPCR #### [place] [address] .GFR Collected: 06/02/2017 Status: F Source: [facility] 5:07 AM [facility] REPOSITORY TYPE CODE TESTS RESULT OUT OF REFERENCE UNITS RANGE LAB GFRAA(LOINC ml/min/1.73 ) sqm GFR 28 [place] Citizen Result Comment: GFR Population mean for , [...] GFR, B12, ADIFF, ANEU, MORPH, HCQPCR #### [address] [address] B12 Collected: 06/02/2017 Status: F Source: [facility] 5:07 AM [facility] REPOSITORY TYPE CODE TESTS RESULT OUT OF REFERENCE UNITS RANGE LAB B12(LOINC) 211-911 pg/mL Vitamin B12 340 Lvl Performed By: #### CBC, BMP, FERR, FES, GFR, B12, ADIFF, ANEU, MORPH, HCQPCR #### [address] [address] .AUTO DIFF Collected: 06/02/2017 Status: F Source: [facility] 5:07 [facility] REPOSITORY TYPE CODE TESTS RESULT OUT OF [...] GFR, B12, ADIFF, ANEU, MORPH, HCQPCR #### [place] [id number] .NEUABS Collected: 06/02/2017 Status: F Source: [facility] 5:07 AM [facility] REPOSITORY TYPE CODE TESTS RESULT OUT OF REFERENCE UNITS RANGE LAB ANEU(LOINC) 2.25-8.10 10 3/mcL Neutrophil, 4.30 Absolute Performed By: #### CBC, BMP, FERR, FES, GFR, B12, ADIFF, ANEU, MORPH, HCQPCR #### [place] [address] .MORPH Collected: 06/02/2017 Status: F Source: [facility] 5:07 AM [facility] REPOSITORY TYPE CODE TESTS RESULT OUT OF REFERENCE UNITS RANGE LAB PLTE(LOINC ) Platelet Estimate Grt Decreased LAB ANIS(LOINC ) Anisocytosis Slight LAB POIK(LOINC ) Poik Slight LAB POLC(LOINC ) Polychrom Slight LAB MACYT(LOIN C) Macrocytosis Slight LAB OVAL(LOINC ) Ovalocytes Few Performed By: #### CBC, BMP, FERR, FES, GFR, B12, ADIFF, ANEU, MORPH, HCQPCR #### [place] [address] HCQPCR Collected: 06/02/2017 Status: F Source: [facility] 5:07 AM [facility] REPOSITORY TYPE CODE TESTS RESULT OUT OF REFERENCE UNITS RANGE LAB HCQPCR([facility] [place]) Hepatitis C RNA HCV RNA not detected by PCR. Result Comment: Reference Range: Negative for HCV RNA The Linear Range of this assay is 15 IU/mL to 100,000,000 IU/mL. Performed By: [facility] [place] [address] [place] [address] Lusterer: Giovany Harper#: [id number] Phone#: Performed By: #### CBC, BMP, FERR, FES, GFR, B12, ADIFF, ANEU, MORPH, HCQPCR #### [place] [address] BG Collected: 06/01/2017 Status: F Source: [facility] 11:49 PM [facility] REPOSITORY TYPE CODE TESTS RESULT [...] 738 Pressure Performed By: #### BG #### [address] [address] CBC Collected: 06/01/2017 Status: F Source: [facility] 6:25 AM [facility] REPOSITORY TYPE CODE TESTS RESULT [...] #### CBC, ADIFF, ANEU, BMP, GFR #### [address] [address] .AUTO DIFF Collected: 06/01/2017 Status: F Source: [facility] 6:25 AM [facility] REPOSITORY TYPE CODE TESTS RESULT [...] #### CBC, ADIFF, ANEU, BMP, GFR #### [place] [address] .NEUABS Collected: 06/01/2017 Status: F Source: [facility] 6:25 AM [facility] REPOSITORY TYPE CODE TESTS RESULT OUT OF REFERENCE UNITS RANGE LAB ANEU(LOINC) 2.25-8.10 10 3/mcL Neutrophil, 2.70 Absolute Performed By: #### CBC, ADIFF, ANEU, BMP, GFR #### [place] [address] BMP Collected: 06/01/2017 Status: F Source: [facility] 6:25 AM [facility] REPOSITORY TYPE CODE TESTS RESULT [...] #### CBC, ADIFF, ANEU, BMP, GFR #### [address] [address] .GFR Collected: 06/01/2017 Status: F Source: [facility] 6:25 AM [facility] REPOSITORY TYPE CODE TESTS RESULT OUT OF REFERENCE UNITS RANGE LAB GFRAA(LOINC ml/min/1.73 ) sqm GFR 29 [place] Citizen Result Comment: GFR Population mean for , [...] #### CBC, ADIFF, ANEU, BMP, GFR #### [address] [address] BMP Collected: 05/31/2017 Status: F Source: [facility] 5:34 AM [facility] REPOSITORY TYPE CODE TESTS RESULT [...] BMP, GFR, CBC, MORPH, ADIFF, ANEU #### [facility] [address] [place] [address] .GFR Collected: 05/31/2017 Status: F Source: [facility] 5:34 AM [facility] REPOSITORY TYPE CODE TESTS RESULT OUT OF REFERENCE UNITS RANGE LAB GFRAA(LOINC ml/min/1.73 ) sqm GFR 27 [place] Citizen Result Comment: GFR Population mean for , [...] BMP, GFR, CBC, MORPH, ADIFF, ANEU #### [address] [address] CBC Collected: 05/31/2017 Status: F Source: [facility] 5:34 AM [facility] REPOSITORY TYPE CODE TESTS RESULT [...] BMP, GFR, CBC, MORPH, ADIFF, ANEU #### [address] [address] .MORPH Collected: 05/31/2017 Status: F Source: [facility] 5:34 AM [facility] REPOSITORY TYPE CODE TESTS RESULT OUT OF REFERENCE UNITS RANGE LAB PLTE(LOINC ) Platelet Estimate Grt Decreased LAB ANIS(LOINC ) Anisocytosis Slight LAB POLC(LOINC ) Polychrom Slight Performed By: #### BMP, GFR, CBC, MORPH, ADIFF, ANEU #### [place] [address] .AUTO DIFF Collected: 05/31/2017 Status: F Source: [facility] 5:34 AM [facility] REPOSITORY TYPE CODE TESTS RESULT [...] BMP, GFR, CBC, MORPH, ADIFF, ANEU #### [place] [address] .NEUABS Collected: 05/31/2017 Status: F Source: [facility] 5:34 AM [facility] REPOSITORY TYPE CODE TESTS RESULT OUT OF REFERENCE UNITS RANGE LAB ANEU(LOINC) 2.25-8.10 10 3/mcL Neutrophil, 2.50 Absolute Performed By: #### BMP, GFR, CBC, MORPH, ADIFF, ANEU #### [place] [address] .GFR Collected: 05/30/2017 Status: F Source: [facility] 4:43 PM [facility] REPOSITORY TYPE CODE TESTS RESULT OUT OF REFERENCE UNITS RANGE LAB GFRAA(LOINC ml/min/1.73 ) sqm GFR 29 [place] Citizen Result Comment: GFR Population mean for , [...] meters Performed By: #### GFR, BMP #### [place] [address] BMP Collected: 05/30/2017 Status: F Source: [facility] 4:43 PM [facility] REPOSITORY TYPE CODE [...] 8.8 Performed By: #### GFR, BMP #### [address] [address] CBC Collected: 05/30/2017 Status: F Source: [facility] 5:05 AM [facility] REPOSITORY TYPE CODE TESTS RESULT [...] #### CBC, ADIFF, ANEU, BMP, GFR #### [address] [address] .AUTO DIFF Collected: 05/30/2017 Status: F Source: [facility] 5:05 AM [facility] REPOSITORY TYPE CODE TESTS RESULT [...] #### CBC, ADIFF, ANEU, BMP, GFR #### [place] [address] .NEUABS Collected: 05/30/2017 Status: F Source: [facility] 5:05 AM [facility] REPOSITORY TYPE CODE TESTS RESULT OUT OF REFERENCE UNITS RANGE LAB ANEU(LOINC) 2.25-8.10 10 3/mcL Low Neutrophil, 2.20 Absolute Performed By: #### CBC, ADIFF, ANEU, BMP, GFR #### [place] [address] BMP Collected: 05/30/2017 Status: F Source: [facility] 5:05 AM [facility] REPOSITORY TYPE CODE TESTS RESULT [...] #### CBC, ADIFF, ANEU, BMP, GFR #### [address] [address] .GFR Collected: 05/30/2017 Status: F Source: [facility] 5:05 AM [facility] REPOSITORY TYPE CODE TESTS RESULT OUT OF REFERENCE UNITS RANGE LAB GFRAA(LOINC ml/min/1.73 ) sqm GFR 24 [place] Citizen Result Comment: GFR Population mean for , [...] #### CBC, ADIFF, ANEU, BMP, GFR #### [place] [address] BMP Collected: 05/29/2017 Status: F Source: [facility] 5:07 AM [facility] REPOSITORY TYPE CODE TESTS RESULT [...] BMP, GFR, CBC, ADIFF, ANEU, RFP #### [place] [address] .GFR Collected: 05/29/2017 Status: F Source: [facility] 5:07 AM [facility] REPOSITORY TYPE CODE TESTS RESULT OUT OF REFERENCE UNITS RANGE LAB GFRAA(LOINC ml/min/1.73 ) sqm GFR 21 [place] Result Comment: GFR Population mean for , [...] BMP, GFR, CBC, ADIFF, ANEU, RFP #### [address] [address] CBC Collected: 05/29/2017 Status: F Source: [facility] 5:07 AM [facility] REPOSITORY TYPE CODE TESTS RESULT [...] MANJU, GFR, CBC, ADIFF, ANEU, RFP #### [address] [address] .AUTO DIFF Collected: 05/29/2017 Status: F Source: [facility] 5:07 AM [facility] REPOSITORY TYPE CODE TESTS RESULT [...] BMP, GFR, CBC, ADIFF, ANEU, RFP #### [place] [address] .NEUABS Collected: 05/29/2017 Status: F Source: [facility] 5:07 AM [facility] REPOSITORY TYPE CODE TESTS RESULT OUT OF REFERENCE UNITS RANGE LAB ANEU(LOINC) 2.25-8.10 10 3/mcL Neutrophil, 2.30 Absolute Performed By: #### BMP, GFR, CBC, ADIFF, ANEU, RFP #### [place] [address] RFP Collected: 05/29/2017 Status: F Source: [facility] 5:07 AM [facility] REPOSITORY TYPE CODE TESTS RESULT [...] BMP, GFR, CBC, ADIFF, ANEU, RFP #### [place] [address] TROPI Collected: 05/28/2017 Status: F Source: [employer] 8:38 PM [facility] REPOSITORY TYPE CODE TESTS RESULT [...] ECG changes may help assess possibility of HI. *Other non-acute coronary syndrome conditions such as CHF, myocarditis, pulmonary emboli, sepsis and cardiac surgery could result in myocardial damage and increased troponin levels. Performed By: #### TROPI #### [address] [address] TROPI Collected: 05/28/2017 Status: F Source: [employer] [facility] 5:54 PM [facility] REPOSITORY TYPE CODE TESTS RESULT [...] ECG changes may help assess possibility of HI. *Other non-acute coronary syndrome conditions such as CHF, myocarditis, pulmonary emboli, sepsis and cardiac surgery could result in myocardial damage and increased troponin levels. Performed By: #### TROPI #### [address] [address] TROPI Collected: 05/28/2017 Status: F Source: [employer] 2:15 PM [facility] REPOSITORY TYPE CODE TESTS RESULT [...] ECG changes may help assess possibility of HI. *Other non-acute coronary syndrome conditions such as CHF, myocarditis, pulmonary emboli, sepsis and cardiac surgery could result in myocardial damage and increased troponin levels. Performed By: #### TROPI #### [place] [address] TROPI Collected: 05/28/2017 Status: F Source: [facility] 11:15 AM [facility] REPOSITORY TYPE CODE TESTS RESULT [...] ECG changes may help assess possibility of HI. *Other non-acute coronary syndrome conditions such as CHF, myocarditis, pulmonary emboli, sepsis and cardiac surgery could result in myocardial damage and increased troponin levels. Performed By: #### TROPI #### [place] [address] CRUR Collected: 05/28/2017 Status: F Source: [facility] 11:04 AM [facility] REPOSITORY TYPE CODE TESTS RESULT OUT OF REFERENCE UNITS RANGE LAB CRU(LOINC) mg/dL U Creatinine 189.0 Performed By: #### CRSUSANA, PRUR, NAUR #### [place] [address] PRUR Collected: 05/28/2017 Status: F Source: [facility] 11:04 AM [facility] REPOSITORY TYPE CODE TESTS RESULT OUT OF REFERENCE UNITS RANGE LAB PRU(LOINC) mg/dL U Protein 40.7 Performed By: #### CRSUSANA, PRUR, NAUR #### [place] [address] NAUR Collected: 05/28/2017 Status: F Source: [facility] 11:04 AM [facility] REPOSITORY TYPE CODE TESTS RESULT OUT OF REFERENCE UNITS RANGE LAB KAREN(LOINC) mEq/L U Sodium 29.0 Performed By: #### CRUR, PRUR, NAUR #### [address] [address] EOS Collected: 05/28/2017 Status: F Source: [facility] 11:04 AM [facility] REPOSITORY TYPE CODE TESTS RESULT OUT OF REFERENCE UNITS RANGE LAB EOSRC(LOIN C) Eosinophil Spec Urine Type LAB EOSMR(LOIN C) Eos Smear 0 Result Comment: The units for an eosinophil smear depend upon specimen type: Stool, sputum, nasal specimens: number of cells/hp field Urine, bronchial lavage: number of cells/100 cells (%) Performed By: #### EOS #### [address] [address] .GFR Collected: 05/28/2017 Status: F Source: [facility] 5:48 AM [facility] REPOSITORY TYPE CODE TESTS RESULT OUT OF REFERENCE UNITS RANGE LAB GFRAA(LOINC ml/min/1.73 ) sqm GFR 22 [place] Citizen Result Comment: GFR Population mean for , [...] #### GFR, BMP, CBC, ADIFF, ANEU #### [address] [address] BMP Collected: 05/28/2017 Status: F Source: [facility] 5:48 AM [facility] REPOSITORY TYPE CODE TESTS RESULT [...] #### GFR, BMP, CBC, ADIFF, ANEU #### [address] [address] CBC Collected: 05/28/2017 Status: F Source: [facility] 5:48 AM [facility] REPOSITORY TYPE CODE TESTS RESULT [...] #### GFR, BMP, CBC, ADIFF, ANEU #### [place] [address] .AUTO DIFF Collected: 05/28/2017 Status: F Source: [facility] 5:48 AM [facility] REPOSITORY TYPE CODE TESTS RESULT [...] #### GFR, BMP, CBC, ADIFF, ANEU #### [place] [address] .NEUABS Collected: 05/28/2017 Status: F Source: [facility] 5:48 AM [facility] REPOSITORY TYPE CODE TESTS RESULT OUT OF REFERENCE UNITS RANGE LAB ANEU(LOINC) 2.25-8.10 10 3/mcL Neutrophil, 4.50 Absolute Performed By: #### GFR, BMP, CBC, ADIFF, ANEU #### [place] [address] XR CHEST 2 VIEWS Observed: 05/27/2017 Status: F Source: [facility] 5:30 PM [facility] REPOSITORY ORIGINAL XR [...] PM CBC Collected: 05/27/2017 Status: F Source: [facility] 3:59 PM [facility] REPOSITORY TYPE CODE TESTS RESULT [...] #### CBC, ADIFF, ANEU, BMP, GFR #### [place] [address] .AUTO DIFF Collected: 05/27/2017 Status: F Source: [facility] 3:59 PM [facility] REPOSITORY TYPE CODE TESTS RESULT [...] #### CBC, ADIFF, ANEU, BMP, GFR #### [place] [address] .NEUABS Collected: 05/27/2017 Status: F Source: [facility] 3:59 [facility] REPOSITORY TYPE CODE TESTS RESULT OUT OF REFERENCE UNITS RANGE LAB ANEU(LOINC) 2.25-8.10 10 3/mcL Neutrophil, 3.80 Absolute Performed By: #### CBC, ADIFF, ANEU, BMP, GFR #### [place] [address] BMP Collected: 05/27/2017 Status: F Source: [facility] 3:59 [facility] REPOSITORY TYPE CODE TESTS RESULT OUT OF [...] #### CBC, ADIFF, ANEU, BMP, GFR #### [address] [address] .GFR Collected: 05/27/2017 Status: F Source: [facility] 3:59 PM [facility] REPOSITORY TYPE CODE TESTS RESULT OUT OF REFERENCE UNITS RANGE LAB GFRAA(LOINC ml/min/1.73 ) sqm GFR 22 [place] Citizen Result Comment: GFR Population mean for , [...] #### CBC, ADKEN, ANEU, BMP, GFR #### [address] [address] BMP Collected: 05/25/2017 Status: F Source: [facility] 9:16 AM [facility] REPOSITORY TYPE CODE TESTS RESULT [...] 9.5 Performed By: #### BMP, GFR #### [address] [address] .GFR Collected: 05/25/2017 Status: F Source: [employer] 9:16 AM [facility] REPOSITORY TYPE CODE TESTS RESULT OUT OF REFERENCE UNITS RANGE LAB GFRAA(LOINC ml/min/1.73 ) sqm GFR 24 [place] Citizen Result Comment: GFR Population mean for , [...] Performed By: #### MANJU, GFR #### [address] [id number] [place], [place] [address] ALLERGIES ALLERGIES DATE TYPE / CODE NAME / CODE REACTION SEVERITY SOURCE 04/12/2018 Drug esomeprazole/[id number] Unknown Unknown Epdro Allergy/416 8918(RXNORM) [facility] 258386([facility] ED CT) Repository 07/31/2016 DRUG ESOMEPRAZOLE ITCHING [facility] INGREDI/419 [facility] [address]([facility] ED CT) ENCOUNTERS ENCOUNTERS ADMIT/DISCHARGE ACCOUNT NUMBER ADMITTING ENCOUNTER LOCATION SOURCE CLASS 05/09/2018/05/09/19 [id number] Ambulatory BBuilding:[place] [address] Repository 05/09/2018/05/09/19 [id number] Ambulatory BBuilding:[place] [address] Repository 04/20/2018/04/20/20 [id number] Emergency BBuilding:VANDA Hammonds [address] [place] [address] Repository 04/13/2018/04/13/20 [id number] [facility] [address] [facility] m: [id number] 04/06/2018/04/06/20 [id number] Ambulatory [address] ding:[facility] Repository 03/16/2018 [id number] Ambulatory [facility] ding:[facility] Repository 02/25/2018/02/26/20 [id number] Ambulatory [address] ding:[facility] [place] Repository 02/18/2018/02/19/20 [id number] Ambulatory [address] ding:[facility] [place] Repository 02/11/2018/02/12/20 [id number] Ambulatory [address] ding:[facility] [place] Repository 02/04/2018/02/05/20 [id number] Ambulatory [address] ding:[facility] Repository 01/31/2018/02/01/20 [id number] Ambulatory WARNER Warner 18 [facility] ding:[facility] Repository 01/28/2018/01/29/20 [id number] Ambulatory WARNER Warner 18 [facility] ding:[facility] Repository 01/26/2018/01/27/20 [id number] Ambulatory WARNER Warner 18 [facility] ding:RAD [facility] Repository 01/20/2018/01/21/20 [id number] Ambulatory WARNER Warner 18 [facility] ding:[facility] Repository 01/07/2018/01/08/20 [id number] Ambulatory WARNER Warner 18 [facility] ding:OLAB [facility] Repository 12/28/2017/12/29/19 [id number] Ambulatory WARNER Warner [address] [place] [address] ding:OLAB [facility] Repository 12/28/2017/12/29/19 [id number] Ambulatory [address] Repository 12/15/2017/12/16/19 [id number] Ambulatory WARNER Warner [address] [place] [address] ding:OLAB [facility] Repository 12/15/2017/12/16/19 [id number] Ambulatory WARNER Warner [address] [place] [address] ding:OLAB [facility] Repository 12/01/2017/12/02/19 [id number] Ambulatory WARNER Warner [address] [place] [address] ding:OLAB [facility] Repository 11/17/2017/11/18/19 [id number] Ambulatory WARNER Warner [address] [place] [address] ding:OLAB [facility] Repository 11/16/2017/11/17/19 [id number] Ambulatory WARNER Warner [address] [place] [address] ding:OLAB [facility] Repository 11/05/2017/11/09/19 [id number] BASIL Ambulatory ABuilding:SUSU Ang MD, HAYDEE Jaime URoom: Health 0340Bed: A [facility] Repository 11/04/2017/11/05/19 [id number] Ambulatory WARNER Warner [address] [place] [address] ding:[facility] Repository 10/14/2017/10/15/19 [id number] Ambulatory WARNER Warner 18 [facility] ding:AB [facility] Repository 10/14/2017 [id number] Ambulatory BMSBuilding: Park BMS.[facility] Repository 09/17/2017/09/18/19 [id number] Ambulatory WARNER Warner 18 [facility] ding:[facility] [place] Repository 09/06/2017/09/07/19 [id number] Ambulatory [address] Repository 09/01/2017/09/02/19 [id number] Ambulatory [address] Repository 08/23/2017/08/25/19 [id number] Ambulatory [address] Repository 08/21/2017/08/22/19 [id number] Ambulatory [address] Repository 08/19/2017/09/02/[id number] Repository 08/19/2017 [id number] [facility] 08/05/2017/08/06/19 [id number] Ambulatory WARNER Warner [address] [place] [address] ding:[facility] Repository 08/01/2017/08/02/19 [id number] Emergency BBuilding:VANDA Hammonds 18 [facility] Repository 07/26/2017/07/27/19 [id number] Emergency BBuilding:VANDA Hammonds [facility] Repository 07/22/2017/07/23/19 [id number] Ambulatory AULTMANBuild Warner 18 ing:[facility] Repository 07/16/2017/07/17/19 [id number] Ambulatory [address] Repository 07/16/2017 [id number] Ambulatory [facility] Repository 07/16/2017/07/17/19 [id number] Ambulatory [address] Repository 07/13/2017/07/14/19 [id number] Ambulatory WARNER Warner 18 [facility] ding:[facility] [place] Repository 06/18/2017/06/18/19 [id number] Ambulatory AULTMANBuild Warner 18 ing:[facility] Repository 06/09/2017/06/09/19 [id number] Ambulatory [address] ding:OLAB [facility] Repository 05/27/2017/06/07/19 [id number] BASIL Inpatient ABuilding:HAYDEE Carlson MD Encounter URoom: Health 0313Bed: A [facility] Repository 05/25/2017/05/25/19 [id number] Ambulatory [address] ding:OLAB [facility] Repository PAYERS PAYERS ENCOUNTER GUARANTOR PAYER SUBSCRIBER SOURCE 05/09/2018 KALYN L Primary KALYN [facility] MCCUMBERSDOB: Insurance:MEDICARE MCCUMBERSDOB: [facility] PART B [facility] [id number] Repository FAIR Number: ZELALEM [place]O [place] [id number] [place] [address]Kdb: 42161~N/ATel: Date:2018-05-09 - [id number] ()Tel: (000) (HP) Name:[facility] 000-0000 () [address] [address]GG: 05/09/2018 Secondary KALYNJB Hammonds [facility] Insurance:MEDICAL MCCUMBERSDOB: [facility] [id number] Repository INSCOPolicy Number: RIKKI MASTERSON [id number] [place] [address]Yrj: Date:2018-05-09 - 6234-37-99Ucku ()Tel: (000) Name:[address] 000[address]0000 (WP) [place], [place] [address]ND: 05/09/2018 KALYN L Primary KALYN Pedro Hammnods [facility] MCCUMBERSDOB: Insurance:MEDICARE MCCUMBERSDOB: [facility] PART B INSCOPolicy [id number] Repository FAIR Number: RIKKI ZELALEM MASTERSON [place] [id number] [place] [address]Gnx: [address]~N/ATel: Date:2018-05-09 - 9845-33-68Egkp (HP)Tel: (000) (HP) Name:EMILY 000-0000 (WP) Administrators [address] [address], [place] [address]VO: 05/09/2018 Secondary KALYN L [facility] Insurance:MEDICAL MCCUMBERSDOB: [facility] [id number] Repository INSCOPolicy Number: RIKKI MASTERSON [id number] [place] [address]Kam: Date:2018-05-09 - [phone] (HP)Tel: (000) Name:O Phan 000-0000 (WP) [address], [place] [address]AT: 04/20/2018 KALYN L [facility] MCCUMBERSDOB: Insurance:MEDICARE [facility]SDOB: [facility] PART B [facility] [id number] Repository FAIR Number: ZEALLEM LAZCANO [place] [id number] [place] [address]Nft: 98435~N/ATel: Date:2018-04-20 - [phone] (HP)Tel: (000) (HP) Name:[facility]MANPaulette 000-0000 (WP) Administrators [address] [address]KC: 04/20/2018 Secondary KALYN [facility] Insurance:[facility] MCCUMBERSDOB: [facility] ONLY [id number] Repository INSCOPolicy Number: RIKKI MASTERSON [id number] [place] [address]Exc: Date:2018-04-20 - 7810-11-95Tqzg (HP)Tel: (000) Name:EDITOR NEWS [address] 000-0000 (WP) 091646[place], [place] [address]IC: 04/13/2018 SIMON Hernandez Primary KALYN L Park [id number] Insurance:MEDICARE MCCUMBERSDOB: Community FAIR PART A BPolicy Number: [id number] [id number] Repository [address]Jfc: 330) Date:2018-03-22 () 04/13/2018 Secondary KALYN L Pedro Insurance:AARPPolicy MCCUMBERSDOB: Community Number: [id number] Hospital [id number] Repository Date:7905-27-15AG [facility] 207368[place], [place] [address]QH: 04/13/2018 Tertiary NOT GIVENUNK Park Insurance:SELF PAY [facility] Number: Effective Repository Date:2018-03-22 04/06/2018 SIMON Hernandez Primary KALYN L Park [id number] Insurance:MEDICARE MCCUMBERSDOB: Community FAIR PART A BPolicy Number: [id number] [place], [place] [id number] Repository [address]Nrt: 330) Date:2018-03-22 () 04/06/2018 Secondary KALYN L Park Insurance:AARPPolicy MCCUMBERSDOB: Community Number: [id number] Hospital [id number] Repository Date:6046-12-36[address]IIQQUFQ, [place] [address]ZY: 04/06/2018 Tertiary NOT GIVENUNK Pedro Insurance:SELF PAY [facility] Number: Effective Repository Date:2018-03-22 03/16/2018 [facility] Primary KALYN L Park [id number] Insurance:MEDICARE MCCUMBERSDOB: Community FAIR PART A BPolicy Number: [id number] [place], [place] [id number] Repository [address]Tos: 330) Date:2018-03-10 () 03/16/2018 Secondary KALYN L Pedro Insurance:AARPPolicy MCCUMBERSDOB: Community Number: [id number] Hospital [id number] Repository Date:9564-94-09GF [address]SBRWSAQ, [place] [address]HD: 03/16/2018 Tertiary NOT GIVENUNK Park Insurance:SELF PAY Community [facility] Number: Effective Repository Date:2018-03-10 02/25/2018 KALYN L Primary KALYN [facility] AdministrationUM[facility]SDOB: Insurance:MEDICARE MCCUMBERSDOB: [facility] PART BPolicy Number: [id number] Repository FAIR [id number] [place], [place] Date:2018-02-25 - [place] [address]Ulu: [address]~N/ATel: [id number] Name:PCGS (HP)Tel: (000) (HP) Administrators LLCPO 000-0000 () [address] [place] [address]SJ: 02/25/2018 Secondary KALYNJB [facility] Insurance:[facility] HOSPITALUMBERSDOB: [facility] HEALTH-SECONDARY [id number] Repository ONLYPolicy Number: RIKKI AULTMAN [facility] [id number] [place] [address]Osb: Date:2018-02-25 - 7064-78-70Ykqs (HP)Tel: (000) Name:[facility] Box 000-0000 () 625932Rvtqbkl, [place] [address]PB: 02/18/2018 KALYN L Primary KALYN [facility] AdministrationUMBERSDOB: Insurance:MEDICARE MCCUMBERSDOB: [facility] PART BPolicy Number: [id number] Repository FAIR [id number] [place], [place] Date:2018-02-18 - [place] [address]Rui: [address]Ouy: ([phone] 0521-70-96Qady ) [phone] Name:PCGS (HP)Tel: (000) (HP)Tel: (999) Administrators LLCPO 000-0000 (WP) 999-9999 (WP) [address] [place] [address]MA: 02/18/2018 Secondary KALYN L [facility] [id number] Repository ONLYPolicy Number: RIKKI MASTERSON [id number] [place] [address]Juy: Date:2018-02-18 - 1764-50-34Wdwf ()Tel: (000) Name:[facility] Phan 000-0000 (WP) 895801Zkocgnj, [place] [address]HX: 02/11/2018 KALYN L [facility] MCCUMBERSDOB: Insurance:MEDICARE [facility]: [facility] PART BPolicy Number: [id number] Repository [facility] [id number] [place]EL[place]EM [place]O [place] Date:2018-02-11 - [place] [address]Osk: [address]Nxb: [phone] [phone] Name:EMILY (HP)Tel: (000) (HP)Tel: (999) Administrators LLCPO 000-0000 (WP) 999-9999 (WP) [address] [place] [address]AW: 02/11/2018 Secondary KALYN L [facility] Insurance:[facility]: [facility] [id number] Repository ONLYPolicy Number: RIKKI MASTERSON [id number] [place] [address]Efm: Date:2018-02-11 - 0973-28-75Saay ()Tel: (000) Name:[facility] Phan 000-0000 (WP) 816311Ltgwmav, [place] [address]HZ: 02/04/2018 KALYN L Primary KALYN L Warner [facility] MCCUMBERSDOB: Insurance:MEDICARE MCCUMBERSDOB: [facility] PART BPolicy Number: [id number] Repository [facility] [id number] [place], [place] Date:2018-02-04 [place] [address]Vqv: [address]Veg: (330) [phone] [phone] Name:[facility] (HP)Tel: (000) (HP)Tel: (999) Administrators LLCPO 000-0000 (WP) 999-9999 (WP) [address] [address]XryqrxvmzKING[place]URG, [place] [address]FZ: 02/04/2018 Secondary KALYN L [facility] Insurance:[facility]ENTEROB: [facility] [id number] Repository ONLYPolicy Number: RIKKI MASTERSON [id number] [place] [address]Xks: Date:2018-02-04 - 7628-85-23Okqa ()Tel: (000) Name:EDITOR NEWS Box 000-0000 (WP) 187389Nosmzqv, [place] [address]WL: 01/31/[address] [facility] CenterSD[facility]: Insurance:MEDICARE MCCUMBERSDOB: [facility] PART BPolicy Number: [id number] Repository [facility] [id number] [place], [place] Date:2018-01-31 - [place] [address]Uoa: [address]Ltc: (330) [id number] [phone] Name:[facility] ()Tel: (000) (HP)Tel: (999) Administrators LLCPO 000-0000 (WP) 999-9999 (WP) [address] [address]Nwgvsnrin, [place] [address]IW: 01/31/2018 Secondary KALYN L [facility] Insurance:[facility]: [facility] [id number] Repository ONLYPolicy Number: RIKKI MASTERSON [id number] [place] [address]Tjw: Date:2018-01-31 - 0369-45-64Kgyl (HP)Tel: (000) Name:CPO [place] 000-0000 () 787539Katgcrr, [place] [address]GF: 01/28/2018 KALYN L Primary KALYN [facility] SpringsUM[facility]SDOB: Insurance:MEDICARE MCCUMBERSDOB: [facility] PART BPolicy Number: [id number] Repository [facility] [id number] [place], [place] Date:2018-01-28 - [place] [address]Syd: [address]Wpd: (330) [phone] [phone] Name:PCGS (HP)Tel: (000) (HP)Tel: (999) Administrators LLCPO 000-0000 (WP) 999-9999 (WP) [address] [place] [address]PK: 01/28/2018 Secondary KALYN [facility] Health Insurance:[facility]ITALUMBERSDOB: [facility] HEALTH-SECONDARY [id number] Repository ONLYPolicy Number: [facility] [id number] [place] [address]Xau: Date:2018-01-28 - 3958-07-92Tcyi (HP)Tel: (000) Name:CPO [place]m 000-0000 () 688023Fbiyulm, [place] [address]ZS: 01/26/2018 KALYN L [facility]UM[facility]SDOB: Insurance:MEDICARE MCCUMBERSDOB: [facility] PART BPolicy Number: [id number] Repository [facility] [id number] [place], [place] Date:2018-01-26 [place] [address]Ruw: [address]Axu: (330) [id number] [phone] Name:PCGS (HP)Tel: (000) (HP)Tel: (999) Administrators LLCPO 000-0000 (WP) 999-9999 (WP) [address] [place] [address]SP: 01/26/2018 Secondary KALYN L [facility] Insurance:[facility]: [facility] [id number] Repository ONLYPolicy Number: RIKKI MASTERSON [id number] [place] [address]Mdy: Date:2018-01-26 - 1159-26-36Kyxz ()Tel: (000) Name:[facility] Phan 000-0000 (WP) 193553Alubymy, [place] [address]MG: 01/20/2018 KALYN L Primary [facility] MCCUMBERSDOB: Insurance:MEDICARE [facility]OB: [facility] PART BPolicy Number: [id number] Repository [facility] [id number] [place]EL[place]EM [place] Date:2018-01-20 - [place] [address]Gmv: [address]Eni: (330) [id number] [phone] Name:EMILY (HP)Tel: (000) (HP)Tel: (999) Administrators LLCPO 000-0000 (WP) 999-9999 (WP) [address] [place] [address]DC: 01/20/2018 Secondary KALYN L [facility] Insurance:[facility]ENTER[facility]: [facility] [id number] Repository ONLYPolicy Number: RIKKI MASTERSON [id number] [place] [address]Cor: Date:2018-01-20 - 7996-58-97Ltps ()Tel: (000) Name:EDITOR NEWSMaria Del Rosario Chisholm 000-0000 (WP) 925977Nnrvlim, [place] [address]WZ: 01/07/2018 KALYN L Primary KALYN L [facility] MCCUMBERSDOB: Insurance:MEDICARE [facility]CCCOP[facility] HOSPITALSDOB: [facility] PART BPolicy Number: [id number] Repository [facility] [id number] [place], [place] Date:2018-01-07 - [place] [address]Rug: [address]Gww: (330) [id number] [phone] Name:[facility] (HP)Tel: (000) (HP)Tel: (999) Administrators LLCPO 000-0000 (WP) 999-9999 (WP) [address] [address]JgrkiqughKINGSBURG, [place] [address]NY: 01/07/2018 Secondary KALYN L [facility] Insurance:[facility]ENTER[facility]: [facility] [id number] Repository ONLYPolicy Number: RIKKI MASTERSON [id number] [place] [address]Nmk: Date:2018-01-07 - 6512-19-04Rcsh ()Tel: (000) Name:EDITOR NEWS Box 000-0000 (WP) 779813Plimakk, [place] [address]AB: 12/28/[address] [facility] CenterSDOB: Insurance:MEDICARE MCCUMBERSDOB: [facility] PART BPolicy Number: [id number] Repository [facility] [id number] [place], [place] Date:2017-12-28 - [place] [address]Qrh: [address]Bdm: (330) [id number] [phone] Name:[facility] ()Tel: (000) (HP)Tel: (999) Administrators LLCPO 000-0000 (WP) 999-9999 (WP) [place] [address]KK: 12/28/2017 Secondary KALYN L [facility] Insurance:[facility]: [facility] [id number] Repository ONLYPolicy Number: RIKKI MASTERSON [id number] [place] [address]Gao: Date:2017-12-28 - 3075-68-98Tunc (HP)Tel: (000) Name:CPO [place]m 000-0000 () 878[address]Duvahli, [place] [address]SX: 12/15/2017 KALYN L Primary KALYN L [facility]UM[facility]SDOB: Insurance:MEDICARE [facility] CITYUMBERSDOB: [facility] PART BPolicy Number: [id number] Repository [facility] [id number] [place], [place] Date:2017-12-15 - [place] [address]Yrw: [address]Maz: (330) [id number] [phone] Name:PCGS (HP)Tel: (000) (HP)Tel: (999) Administrators LLCPO 000-0000 (WP) 999-9999 (WP) [address] [place] [address]AK: 12/15/2017 Secondary KALYN L [facility] Insurance:[facility]ITALUMBERSDOB: [facility] HEALTH-SECONDARY [id number] Repository ONLYPolicy Number: [facility], [id number] [place] [address]Omr: Date:2017-12-15 - 0337-66-67Egbw (HP)Tel: (000) Name:CPO Ch[place]m 000-0000 () 900510Nbwsdqi, [place] [address]MD: 12/15/2017 KALYN L Primary KALYN [facility] SpringsUM[facility]SDOB: Insurance:MEDICARE MCCUMBERSDOB: [facility] PART BPolicy Number: [id number] Repository [facility] [id number] Greenwich, [place] Date:2017-12-15 - [place] [address]Wac: [address]Nom: (330) [id number] [phone] Name:PCGS (HP)Tel: (000) (HP)Tel: (999) Administrators LLCPO 000-0000 (WP) 999-9999 (WP) [address] [place] [address]VY: 12/15/2017 Secondary KALYN L [facility] Insurance:[facility]: [facility] [id number] Repository ONLYPolicy Number: RIKKI MASTERSON [id number] [place] [address]Ota: Date:2017-12-15 - 5154-20-08Lcrm ()Tel: (000) Name:[facility] Phan 000-0000 (WP) 038809Htmjepf, [place] [address]CP: 12/01/2017 KALYN L Primary [facility] MCCUMBERSDOB: Insurance:MEDICARE [facility]OB: [facility] PART BPolicy Number: [id number] Repository [facility] [id number] [place]O [place] Date:2017-12-01 - [place] [address]Iqu: [address]Fvc: (330) 1569-52-31Kgii [phone] Name:EMILY (HP)Tel: (000) (HP)Tel: (999) Administrators LLCPO 000-0000 (WP) 999-9999 (WP) [address] [place] [address]DH: 12/01/2017 Secondary KALYN L [facility] Insurance:[facility]: [facility] [id number] Repository ONLYPolicy Number: RIKKI MASTERSON [id number] [place] [address]Tpm: Date:2017-12-01 - 8644-23-59Mlqo ()Tel: (000) Name:EDITOR NEWSMaria Del Rosario Chisholm 000-0000 (WP) 200370Xmeijwq, [place] [address]GC: 11/17/2017 KALYN L Primary KALYN L [facility] MCCUMBERSDOB: Insurance:MEDICARE [facility]CCCOPPER SPRINGS EAST HOSPITALSDOB: [facility] PART BPolicy Number: [id number] Repository [facility] [id number] [place], [place] Date:2017-11-17 - [place] [address]Heo: [address]Aio: (330) [phone] [phone] Name:[facility] (HP)Tel: (000) (HP)Tel: (999) Administrators LLCPO 000-0000 (WP) 999-9999 (WP) [address] [address]Revjnrlfi, [place] [address]FT: 11/17/2017 Secondary KALYN L [facility] Insurance:[facility] [id number] Repository ONLYPolicy Number: RIKKI MASTERSON [id number] [place] [address]Ixi: Date:2017-11-17 - 1887-14-08Swdk ()Tel: (000) Name:EDITOR NEWS Box 000-0000 (WP) 557423Evyriln, [place] [address]HB: 11/16/[address] [facility]SD[facility] Insurance:MEDICARE MCCUMBERSDOB: [facility] PART BPolicy Number: [id number] Repository [facility] [id number] [place], [place] Date:2017-11-16 - [place] [address]Ipj: [address]Fvv: (330) [phone] 4714 Name:[facility] ()Tel: (000) (HP)Tel: (999) Administrators LLCPO 000-0000 (WP) 999-9999 (WP) [place] [address]MW: 11/16/2017 Secondary KALYN L [facility] Insurance:[facility]: [facility] [id number] Repository ONLYPolicy Number: RIKKI MASTERSON [id number] [place] [address]Csk: Date:2017-11-16 - 6242-86-61Fyob (HP)Tel: (000) Name:CPO [place]m 000-0000 () 001451Ksrnkkz, [place] [address]QU: 11/05/2017 KALYN L Primary KALYN L [facility]UM[facility]SDOB: Insurance:MEDICARE MCCUMBERSDOB: [facility] PART BPolicy Number: [id number] Repository [facility] [id number] [place], [place] Date:2016-11-07 [place] [address]And: [address]Idt: (330) [id number] [phone] Name:PCGS (HP)Tel: (000) (HP)Tel: (999) Administrators LLCPO 000-0000 (WP) 999-9999 (WP) [address] [place] [address]AJ: 11/05/2017 Secondary KALYN L [facility] Insurance:[facility]ITALUMBERSDOB: [facility] HEALTH-SECONDARY [id number] Repository ONLYPolicy Number: [facility], [id number] [place] [address]Prr: Date:2017-11-05 - 3723-26-80Xabw (HP)Tel: (000) Name:CPO [place]m 000-0000 () 332761Mywkyqp, [place] [address]FF: 11/04/2017 KALYN L Primary KALYN [facility] SpringsUM[facility]SDOB: Insurance:MEDICARE MCCUMBERSDOB: [facility] PART BPolicy Number: [id number] Repository [facility] [id number] [place], [place] Date:2017-11-04 [place] [address]Zpo: [address]Jnq: (330) [id number] [phone] Name:PCGS (HP)Tel: (000) (HP)Tel: (999) Administrators LLCPO 000-0000 (WP) 999-9999 (WP) [address] [place] [address]XD: 11/04/2017 Secondary KALYN L [facility]OB: [facility] [id number] Repository ONLYPolicy Number: RIKKI MASTERSON [id number] [place] [address]Bij: Date:2017-11-04 - 1963-99-58Jpsu ()Tel: (000) Name:[facility] Box 000-0000 (WP) 484323Xsamtjn, [place] [address]ML: 10/14/2017 KALYN L Primary [facility]YN L [facility] MCCUMBERSDOB: Insurance:MEDICARE [facility] CITYUMBERSDOB: [facility] PART BPolicy Number: [id number] Repository [facility] [id number] [place] LAZ[place] Date:2017-10-14 - [place] [id number]: [id number]: [phone] [id number] Name:EMILY ()Tel: ([phone]) (HP)Tel: (999) Administrators LLCPO [phone] (WP) [phone] (WP) [address] [place] [id number]: 10/14/2017 Secondary KALYN L [facility] [id number] Repository ONLYPolicy Number: [id number] MASTERSON [id number] [place] [address]Hbh: Date:2017-10-14 - [id number] ()Tel: (000) Name:[facility] Phan [phone] (WP) [id number], [place] [address]TQ: 10/14/2017 Collyer Primary KALYN [place] [id number] Insurance:HUMANA MCCUMBERSDOB: [employer] MEDICARE PPOPolicy [id number] Number: Repository [id number]: [phone] [id number] [phone] (HP) Date:[id number] [id number] [place] [id number]: 10/14/2017 Secondary NOT GIVENUNK Pedro Insurance:SELF PAY [facility] Number: Effective Repository Date:2017-09-23 09/17/2017 KALYN L Primary KALYN Pedro [facility] MCCUMBERSDOB: Insurance:MEDICARE MCCUMBERSDOB: [facility] PART BPolicy Number: [id number] Repository [facility] [id number] [place], [place] Date:2017-09-17 - [place] [address]Bkc: [address]Ots: [phone] [phone] Name:[facility] (HP)Tel: (000) ()Tel: (999) [facility] LLCPO 000-0000 (WP) [phone] (WP) [address] [place] [address] 720[address]KV: 09/17/2017 Secondary KALYN Pedro Hammonds Health Insurance:[facility] MCCUMBERSDOB: [facility] HEALTH-SECONDARY [id number] Repository ONLYPoly Number: RIKKI [facility] [id number] [place] [address]Xvt: Date:2017-09-17 - [id number] ()Tel: (000) Name:EDITOR NEWS [address] (WP) [id number], [place] [address]YE: 08/19/2017 KALYN L Primary KALYN Hammonds [facility] Insurance:MEDICARE MCCUMBERSDOB: [facility] PART BPolicy Number: [id number] Repository FAIR [id number] [place], [place] Date:2017-08-16 [place] [address]Gzy: [phone]: [phone] [id number] Name:[facility] (HP)Tel: (000) (HP)Tel: (999) Administrators LLCPO 000-0000 (WP) [phone] (WP) Box JACKI Khan [address]KO: 08/19/2017 Secondary KALYN Pedro PolancoWarner [facility] Insurance:[facility] [id number] Repository ONLYPolicy Number: RIKKI MASTERSON [id number] [place] [address]Vap: Date:2017-08-16 - [phone] (HP)Tel: (000) Name:[facility] Phan 000-0000 (WP) [id number], [place] [address]CL: 08/05/[address] [facility]SD[facility] Insurance:MEDICARE MCCUMBERSDOB: [facility] PART BPolicy Number: [id number] Repository RIKKI [id number] [place] Date:2017-08-03 - [place] [address]Wts: [phone]: [phone] [phone] Name:[facility] (HP)Tel: (000) (HP)Tel: (999) Administrators LLCPO 000-0000 (WP) [phone] (WP) [address] JACKI Khan [address]DW: 08/05/2017 Secondary KALYN Pedro PolancoWarner Health Insurance:[facility]: [facility] [id number] Repository ONLYPolicy Number: RIKKI MASTERSON [id number] [place] [address]Fit: Date:2017-08-03 - [id number] (HP)Tel: (000) Name:[facility] Phan 000-0000 (WP) 098217Lwvouab, [place] [address]AN: 08/01/2017 KALYN L Primary KALYN L [facility] MCCUMBERSDOB: Insurance:MEDICARE MCCUMBERSDOB: [facility] PART BPolicy Number: [id number] Repository [facility] [id number], [place] Date:2017-08-01 [place] [address]Iwb: [phone]: [id number] [phone] Name:[facility] ()Tel: (000) (HP)Tel: (999) Administrators LLCPO 000-0000 (WP) [phone] (WP) [address] [address]Aoghajbkl, [place] [address]SG: 08/01/2017 Secondary KALYN L [facility] Insurance:[facility]: [facility] [id number] Repository ONLYPolicy Number: [facility] [id number] [place] [address]Tct: Date:2017-08-01 - 1979-25-91Ltsi (HP)Tel: (000) Name:EDITOR NEWS [address]0000 (WP) [id number], [place] [address]SW: 07/26/2017 KALYN L Primary KALYN L Warner [facility] HospitalUMBERSDOB: Insurance:MEDICARE [facility]SD[facility]: [facility] PART BPolicy Number: [id number] Repository [facility] [id number] [place], [place] Date:2017-07-26 [place] [address]Krh: [phone]: [phone] ) [phone] Name:[facility] ()Tel: (000) (HP)Tel: (999) Administrators LLCPO 000-0000 (WP) [phone] (WP) [address] [address]Pytngmkkl, [place] [address]NW: 07/26/2017 Secondary KALYN L [facility]: [facility] [id number] Repository ONLYPolicy Number: RIKKI MASTERSON [id number] [place] [address]Ogl: Date:2017-07-26 - [id number] (HP)Tel: (000) Name:CPO [place] 000-0000 (WP) [id number], [place] [address]FT: 07/22/2017 KALYN L Primary KALYN L [facility]UM[facility]SDOB: Insurance:MEDICARE MCCUMBERSDOB: [facility] PART BPolicy Number: [id number] Repository FAIR [id number] [place], [place] Date:2017-07-22 - [place] [address]Tuq: [address]Bwq: [phone] [phone] Name:[facility] (HP)Tel: (000) (HP)Tel: (999) [facility] LLCPO 000-0000 (WP) [phone] (WP) [address] [place] [address]RR: 07/22/2017 Secondary KALYN L [facility] Insurance:[facility]ITALUMBERSDOB: [facility] [id number] Repository ONLYPolicy Number: RIKKI MASTERSON [id number] [place] [address]Gpj: Date:2017-07-22 - [id number] (HP)Tel: (000) Name: Box 000-0000 (WP) 312786Vhefhal, [place] [address]IJ: 07/13/2017 KALYN L Primary [facility] L [facility]SD[facility] Insurance:[facility]: [facility] PART BPolicy Number: [id number] Repository FAIR [id number] [place], [place] Date:2017-07-13 - [place] [address]Fbj: [phone]: [phone] [phone] Name:[facility] (HP)Tel: (000) (HP)Tel: (999) Administrators LLCPO 000-0000 (WP) [phone] (WP) Box JACKI Khan [address]YO: 07/13/2017 Secondary KALYN L [facility] Insurance:[facility]: [facility] HEALTH-SECONDARY [id number] Repository ONLYPolicy Number: RIKKI MASTERSON [id number] [place] [address]Tut: Date:2017-07-13 - 7604-72-03Krpq (HP)Tel: (000) Name:[facility] Box 000-0000 (WP) [id number], [place] [address]LU: 06/18/2017 KALYN L Primary KALYN [facility] CenterSD[facility]: Insurance:MEDICARE MCCUMBERSDOB: [facility] PART BPolicy Number: [id number] Repository [facility] [id number] [place] Date:2017-06-18 - [place] [address]Tre: [phone]: [phone] Name:[facility] (HP)Tel: (000) (HP)Tel: (999) Administrators LLCPO 000-0000 (WP) [phone] (WP) Box JACKI Khan [address]VE: 06/18/2017 Secondary KALYN L [facility] Insurance:[facility]: [facility] CenterPoly [id number] Repository Number: RIKKI MASTERSON [id number] [place] [address]Yju: Date:2017-06-18 - 4069-72-89Ryem (HP)Tel: (000) Name:[facility] Box 000-0000 (WP) [id number], [place] [address]QG: 06/09/2017 KALYN L Primary KALYN L [facility] MCCUMBERSDOB: Insurance:MEDICARE MCCUMBERSDOB: [facility] PART BPolicy Number: [id number] Repository [facility] [id number], [place] Date:2017-06-09 - [place] [address]Eiz: [phone]: [phone] [phone] Name:[facility] (HP)Tel: (000) (HP)Tel: (999) Administrators LLCPO 000-0000 (WP) [phone] (WP) [address] [place] [address]KY: 06/09/2017 Secondary KALYN L [facility] Insurance:[facility] MCCUMBERSDOB: [facility] [id number] Repository Number: [facility] [id number] [place] [address]Hbs: Date:2017-06-09 - 5626-88-41Cskm ()Tel: (000) Name:EDITOR NEWS Box 000-0000 (WP) 143169Ixrbfkc, [place] [address]EG: 05/27/2017 KALYN L Primary KALYN L [facility] MCCUMBERSDOB: Insurance:MEDICARE [facility] CITYUMBERSDOB: [facility] PART APolicy Number: [id number] Repository [facility] [id number] [place], [place] Date:2017-05-27 - [place] [address]Yxl: [address]Vaq: [phone] ) [phone] Name:[employer] (HP)Tel: (000) (HP)Tel: (999) [phone] [address] 000-0000 (WP) [phone] (WP) [id number][place] [address]PJ: 05/27/2017 Secondary KALYN L [facility] Insurance:MEDICARE MCCUMBERSDOB: [facility] PART BPolicy Number: [id number] Repository [id number] RIKKI MASTERSON, Date:2017-05-27 - [place] [address]Wrt: [id number] Name:[facility] ()Tel: (000) Administrators LLCPO 000-0000 (WP) [address] [place] [address]JZ: 05/27/2017 Tertiary KALYN L [facility] Insurance:[facility]: [facility] [id number] Repository Number: RIKKI MASTERSON [id number] [place] [address]Qpw: Date:2017-05-27 - [phone] (HP)Tel: (000) Name:[facility] Phan 000-0000 (WP) [id number], [place] [address]RA: 05/25/2017 KALYN L Primary KALYN [facility] CenterSDOB: Insurance:MEDICARE MCCUMBERSDOB: [facility] PART BPolicy Number: [id number] Repository [facility] [id number] RIKKI MASTERSON [place], [place] Date:2017-05-25 - [place] [address]Spl: [phone]: [phone] Name:[facility] ()Tel: (000) (HP)Tel: (999) Administrators LLCPO 000-0000 (WP) [phone] (WP) [address] [place] [address]KB: 05/25/2017 Secondary KALYN L [facility] Insurance:[facility]: [facility] [id number] Repository Number: RIKKI MASTERSON [id number] [place] [address]Pbx: Date:2017-05-25 - [phone] (HP)Tel: (000) Name:[facility] Box 000-0000 (WP) [id number], [place] [address]ST:
== END 2018-04-13 20:33 | disposition home or self-care (01) ==
LOC: CLSP 16:06 → PCU 16:07
PROVIDERS: Referring Provider Surgery Vascular Surgery; Visit Provider Surgery Vascular Surgery
DX: I70.235 Atherosclerosis of native arteries of right leg with ulceration of other part of foot (principal); I70.245 Atherosclerosis of native arteries of left leg with ulceration of other part of foot; I11.9 Hypertensive heart disease without heart failure; I25.2 Old myocardial infarction; E07.9 Disorder of thyroid, unspecified; D64.9 Anemia, unspecified; K76.9 Liver disease, unspecified; B19.20 Unspecified viral hepatitis C without hepatic coma; N28.9 Disorder of kidney and ureter, unspecified; E11.9 Type 2 diabetes mellitus without complications; Z95.1 Presence of aortocoronary bypass graft; Z79.4 Long term (current) use of insulin; Z79.82 Long term (current) use of aspirin; Z79.01 Long term (current) use of anticoagulants; Z79.899 Other long term (current) drug therapy; Z87.891 Personal history of nicotine dependence
CPT/HCPCS: 36245; 36415; 37224; 75710; 76937; 80069; 82962; 85027; 99152; 99153; J7040; Q9967; C1725; C1760; C1769; C1887; C1894

== ENCOUNTER → 2018-09-20 12:39 | Outpatient (CLI) | payer MEDICARE, OTHER, SELFPAY ==
[2018-04-12 07:55] VITALS: BMI 41.1
--- NOTE | 2018-09-20 12:48 | ART_ITS ---
Reason For Study: atherosclerosis with claudication Right Segmental Pressures Right brachial= 148mmHg. Right posterior tibial artery = 88mmHg. Right dorsalis pedis artery = 178mmHg. Right digit = 65 mmHg. The right dorsalis pedis waveforms are monophasic. The right posterior tibial artery waveforms are monophasic. Indices The right ankle brachial index by the dorsalis pedis is 1.16. The right ankle brachial index by the posterior tibial artery is .58. The right digital-brachial index is .42. The left ankle brachial index by the posterior tibial artery is 1.07. The left ankle brachial index by the dorsalis pedis is 1.63. The left digital-brachial index is .45. Interpretation Summary 1. Bilateral occlussive disease with bilateral monophasic flow at ankle wiht BAO 1.16/1.63 and suspect falsely elevated. 2. Small vessel disease with DBI 0.42/0.45. Ordering Physician: Rojelio Chowdhury Performed By: CHELLE HERNANDEZ [facility]
--- NOTE | 2018-09-20 12:48 | ADU_ITS ---
Reason For Study: atherosclerosis with claudication Right Velocities Left Velocities Ext. Iliac Artery, dist = 187.9 cm./sec. Ext Iliac Artery, dist = 147.2 cm./sec. Common Femoral Artery, mid = 239.7 cm./sec. Common Femoral Artery, mid = 158.1 cm./sec. Supf Femoral Artery, prox = 188 cm./sec. Supf. Femoral Artery, prox = 112.9 cm./sec. Supf Femoral Artery, mid = 256.5 cm./sec. Prox Stent 103.4 cm/s. Common Femoral Artery, dist = 80.6 cm./sec. Mid Stent 88.8 cm/s. Profunda Femoral Artery = 335.9 cm./sec. Dist Stent 128.9 cm/s. Popliteal Artery, prox. = 111.3 cm./sec. Supf. Femoral Artery, mid = 96.0 cm./sec. Popliteal Artery, mid = 129.0 cm./sec. Supf. Femoral Artery, dist = 96.0 cm./sec. Popliteal Artery, dist = 83.3 cm./sec. Profunda Femoral Artery = 141.4 cm./sec. Post. Tibial Artery, prox = 72.3 cm./sec. Popliteal Artery, proximal, = 107 cm./sec. Post. Tibial Artery, mid = 58.9 cm./sec. Popliteal Artery, mid = 198.3 cm./sec. Post. Tibial Artery, dist = 32.5 cm./sec. Popliteal Artery, distal = 195.7 cm./sec. Peroneal Artery, prox = 68.8 cm./sec. Post. Tibial Artery, prox = 43.3 cm./sec. Peroneal Artery, mid = 85.3 cm./sec. Post Tibial Artery, mid = 39.8 cm./sec. Peroneal Artery,dist = 72.1 cm./sec. Post Tibial Artery, dist. = 51.1 cm./sec. Ant. Tibial Artery, prox = 29.2 cm./sec. Ant.Tibial Artery, prox = 63.3 cm./sec. Ant. Tibial Artery, mid = 32.5 cm./sec. Ant Tibial Artery, mid = 78.7 cm./sec. Ant. Tibial Artery, dist = 34.7 cm./sec. Ant. Tibial Artery, distal = 114.4 cm./sec. Unablel to demonstrate flow in the Peroneal Art. Interpretation Summary 1. Right leg with moderate stenosis in QUARTER DOPER nd SFA. Severe stenosis n profunda. 2. Left SFa stent patent and moderate steosis in popliteal and no flow in peroneal. Ordering Physician: Rojelio Chowdhury Performed By: Jean-Pierre Mtz, RVT
== END ==
PROVIDERS: Referring Provider Surgery Vascular Surgery; Visit Provider Surgery Vascular Surgery
DX: I70.213 Atherosclerosis of native arteries of extremities with intermittent claudication, bilateral legs (principal)
CPT/HCPCS: 93922; 93925

== ENCOUNTER → 2018-10-03 09:24 | Outpatient (CLI) | payer MEDICARE, OTHER, SELFPAY ==
[2018-04-12 07:55] VITALS: BMI 41.1
--- NOTE | 2018-10-03 09:30 | VDUE_ITS ---
Reason For Study: ESRD Right Arm Left Arm Right Cephalic Vein at the wrist measures Left Cephalic Vein at the wrist measures 0.13 x 0.14 cm. 0.30 x 0.28 cm. Right Cephalic Vein in the forearm measures Left Cephalic Vein in the forearm measures 0.11 x 0.12 cm. 0.22 x 0.22 cm. Right Cephalic Vein below antecub measures Left Cephalic Vein below antecub measures 0.17 x 0.16 cm. 0.13 x 0.15 cm. Right Cephalic Vein above antecub measures Left Cephalic Vein above antecub measures 0.23 x 0.22 cm. 0.11 x 0.11 cm. Right Cephalic Vein mid bicep measures 0.23 Left Cephalic Vein at mid bicep measures x 0.23 cm. 0.21 x 0.22 cm. Right Cephalic Vein at the shoulder measures Left Cephalic Vein at the shoulder measures 0.22 x 0.23 cm. 0.20 x 0.21 cm. Right Basilic Vein at the origin measures Basilic vein at origin measures 0.48 x 0.45 0.3.3 x 0.32 cm. cm. Right Basilic Vein mid bicep measures 0.33 x Basilic vein at bicep measures 0.33 x 0.35 0.34 cm. cm. Right Basilic Vein above antecub measures Basilic vein above antecub measures 0.39 x 0.41 x 0.40 cm. 0.39 cm. Rt Brachial artery measures 0.44 x 0.45 cm Lt Brachial artery measures 0.34 x 0.33 cm with a velocity of 101.8 cm/sec. with a velocity of 107 cm/sec. Rt Radial artery measures 0.15 x 0.15 cm Lt Radial artery measures 0.08 x 0.09 cm with a velocity of 82.8 cm/sec. with a velocity of 29.8 cm/sec. Interpretation Summary 1. bilateral cephalic veins appear marginal. 2. bilateral basilic veins with good caliber. Ordering Physician: Dustin Rubi Referring Physician: Mary Ramirez Performed By: Nette Mckinney RVT ?
== END ==
PROVIDERS: Referring Provider Internal Medicine Nephrology; Visit Provider Internal Medicine Nephrology
DX: Z01.818 Encounter for other preprocedural examination (principal); N18.6 End stage renal disease
CPT/HCPCS: 93970; 93971; G0365

== ENCOUNTER → 2018-11-22 08:27 | Outpatient (CLI) | payer MEDICARE, OTHER, SELFPAY ==
[2018-04-12 07:55] VITALS: BMI 41.1
--- NOTE | 2018-11-22 08:29 | AVDS_ITS ---
Reason For Study: RUE Device complications RIGHT Inflow artery 233.6/92.5 cm/sec. Inflow artery 564.9 cc/sec. Prox Anastomosis 420.8/187.8 cm/sec. Prox Anastomosis 667.9 cc/sec. Prox Graft 444.2/199.5 cm/sec. Prox Graft 675.6 cc/sec. Mid Graft 369.7/150.1 cm/sec. Mid Graft 1295 cc/sec. Distal Graft 163.6/63.4 cm/sec. Distal Wcise103.3 cc/sec. Outflow 144.1/53.4 cm/sec. Outflow 209 cc/sec. Interpretation Summary 1. Patent fistula with proximal 2.6mm and outflow around 3mm, adequate size through main fistula and graft. Ordering Physician: Rojelio Chowdhury Referring Physician: Mary Ramirez Performed By: Nette Mckinney RVT
== END ==
PROVIDERS: Referring Provider Surgery Vascular Surgery; Visit Provider Surgery Vascular Surgery
DX: T82.858A Stenosis of other vascular prosthetic devices, implants and grafts, initial encounter (principal); N18.6 End stage renal disease
CPT/HCPCS: 93990

== ENCOUNTER → 2019-01-26 09:37 | Outpatient (CLI) | payer MEDICARE, OTHER, SELFPAY ==
[2018-04-12 07:55] VITALS: BMI 41.1
--- NOTE | 2019-01-26 09:39 | AVDS_ITS ---
Reason For Study: complications due to renal device RIGHT Inflow artery 97.9 cm/sec. Inflow artery 87.1 ml/min. Prox Anastomosis 340.6/97.3cm/sec. Prox Anastomosis 303.9 ml/min. Prox Graft 345.5/119.2 cm/sec. Prox Graft 81.9 ml/min. Unable to obtain flow in mid, distal, or outflow. Interpretation Summary 1. Right AVF occluded past anastamosis. Ordering Physician: Rojelio Chowdhury Performed By: Jean-Pierre Mtz, RVT
== END ==
PROVIDERS: Referring Provider Surgery Vascular Surgery; Visit Provider Surgery Vascular Surgery
DX: T82.858A Stenosis of other vascular prosthetic devices, implants and grafts, initial encounter (principal); N18.6 End stage renal disease
CPT/HCPCS: 93990

== ENCOUNTER → 2019-02-28 07:36 | Outpatient (CLI) | payer MEDICARE, OTHER, SELFPAY ==
[2018-04-12 07:55] VITALS: BMI 41.1
--- NOTE | 2019-02-28 07:39 | AVDS_ITS ---
Reason For Study: Complications due to renal dialysis device RIGHT Inflow artery 178.7/72.9 cm/sec. Inflow artery 442.6 cc/sec. Prox Anastomosis 452.1/235.7 cm/sec. Prox Anastomosis 623.9 cc/sec. Prox Graft 474.2/250.5 cm/sec. Prox Graft 731.8 cc/sec. Mid Graft 197.8/104.9 cm/sec. Mid Graft 1657 cc/sec. Distal Graft 81.9/43 cm/sec. Distal Graft 294.7 cc/sec. Outflow 89.6/48.2 cm/sec. Outflow 151 cc/sec. Interpretation Summary 1. Stenosis at proximal anastamosis at 3.1mm and proximal graft 2.9mm and distal outflow 3.5mm. Ordering Physician: Rojelio Chowdhury Referring Physician: Mary Ramirez Performed By: Nette Mckinney RVT
== END ==
PROVIDERS: Referring Provider Surgery Vascular Surgery; Visit Provider Surgery Vascular Surgery
DX: T82.858A Stenosis of other vascular prosthetic devices, implants and grafts, initial encounter (principal); N18.6 End stage renal disease
CPT/HCPCS: 93990

== ENCOUNTER → 2019-04-04 10:10 | Outpatient (CLI) | payer MEDICARE, OTHER, SELFPAY ==
[2018-04-12 07:55] VITALS: BMI 41.1
--- NOTE | 2019-04-04 10:12 | AVDS_ITS ---
Reason For Study: complications due to renal device RIGHT Inflow artery 100.1 cm/sec. Inflow artery 243.9 ml/min Prox Anastomosis 526.1/201.6 cm/sec. Prox Anastomosis 2435 ml/min Prox Graft 539.0/228.0 cm/sec Prox Graft 1223 ml/min Mid Graft 154.5/74.1 cm/sec. Mid Graft 967.8 ml/min. Distal Graft 241.3/105.4 cm/sec. Distal Graft 621.4 ml/min. Outflow 124.8/53.7 cm/sec. Outflow 308.6 ml/min. Interpretation Summary 1. Patent AVF to AVG with adequate flow. Moderate stenosis proximal fistula. Ordering Physician: Rojelio Chowdhury Performed By: Jean-Pierre Mtz RVT
== END ==
PROVIDERS: Referring Provider Surgery Vascular Surgery; Visit Provider Surgery Vascular Surgery
DX: T82.858A Stenosis of other vascular prosthetic devices, implants and grafts, initial encounter (principal); N18.6 End stage renal disease
CPT/HCPCS: 93990

== ENCOUNTER → 2019-04-10 15:12 | Outpatient (CLI) | payer MEDICARE, OTHER, SELFPAY ==
[2018-04-12 07:55] VITALS: BMI 41.1
--- NOTE | 2019-04-10 13:38 | FLU_PTH ---
PATIENT: NAREN ART LOC: [facility] U#:[id number] AGE/SX: 74/F ROOM: RE04/10/[address]: Dr. Jonathan Graves MD : 1950 BED: DIS: SPEC #: [id number] RECD: 04/10/19 15:02 STATUS: RAFI LIZZY #: [id number] NARCISO: 04/10/19 13:[address]: Jonathan Graves DEPT: CYTOLOGY RECD BY: Nakul Torres ENTERED: 04/11/19 11:03 SP TYPE: Fluid OTHR DR: Dr. 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 SJ:fahad 04/12/19 COMMENT Correlation with clinical findings and appropriate follow up are necessary. Case has been reviewed in consultation with Dr. Humphries who concurs with the above diagnosis. IDC:AM CYTOLOGY STUDY Slides are reviewed. CYTOLOGY GROSS Received is 35 ml of clear red fluid labeled with the patient's name and and designated per the requisition as left parotid mass. Submitted for cytology preparation including cell block. / fahad 04/11/19 TC:1 CPT: 27146, 85641
== END ==
PROVIDERS: Referring Provider Otolaryngology; Visit Provider Otolaryngology
DX: K11.9 Disease of salivary gland, unspecified (principal); Z87.891 Personal history of nicotine dependence; Z86.11 Personal history of tuberculosis
CPT/HCPCS: 88108; 88305; 88313

== ENCOUNTER → 2019-05-01 12:22 | Outpatient (CLI) | payer MEDICARE, OTHER, SELFPAY ==
[2018-04-12 07:55] VITALS: BMI 41.1
--- NOTE | 2019-05-01 12:25 | AVDS_ITS ---
Reason For Study: Complication due to renal dialysis device RIGHT Inflow artery 159/56 cm/sec Inflow artery 920 ml/min Prox Anastomosis 74/0 cm/sec. Prox Anastomosis 205 ml/min Prox Graft 746/308 cm/sec Prox Graft 1230 ml/min Mid Graft 662/321 cm/sec. Mid Graft 753 ml/min. Distal Graft 188/100 cm/sec. Distal Graft 1927 ml/min. Outflow 73/26 cm/sec. Outflow 131 ml/min. Interpretation Summary 1. Patent fistula with no significant stenosis. Ordering Physician: Rojelio Chowdhury Referring Physician: Mary Ramirez Performed By: Tania Galaviz, WILL, RVT
== END ==
PROVIDERS: Referring Provider Surgery Vascular Surgery; Visit Provider Surgery Vascular Surgery
DX: T82.858A Stenosis of other vascular prosthetic devices, implants and grafts, initial encounter (principal); N18.6 End stage renal disease; Z99.2 Dependence on renal dialysis
CPT/HCPCS: 93990

== ENCOUNTER 2019-05-01 22:07 | Inpatient (IN) | payer MEDICARE, OTHER, SELFPAY ==
[2018-04-12 07:55] VITALS: BMI 41.1
[2019-05-01 23:55] VITALS: BMI 38.2
[2019-05-01 23:58] VITALS: BP 125/67; PULSE 71; RESP 18; TEMP 37.4; O2SAT 100
[2019-05-02] VITALS (9 sets, daily range): BP systolic 116–125; BP diastolic 46–66; PULSE 69–86; RESP 14–20; TEMP 36.8–37.6; O2SAT 95–100; BMI 38.3
--- NOTE | 2019-05-02 00:29 | PCM.HP.STD ---
Problem List (1) Diabetes Status: Acute Qualifiers: Diabetes mellitus type: type 2 (2) CAP (community acquired pneumonia) Status: Acute (3) Hyperglycemia Status: Acute History of Present Illness Date of Admission: 05/02/19 Chief Complaint: shortness of breath The patient is a 68 year old patient with significant past medical history of diabetes, kidney disease presents to the emergency room in [place] with a confused state per her . Initially he described to be short of breath and her initial pulse ox was 88% on room air at that hospital. The patient does have chest discomfort on her right lateral side status post fall remotely, but this is not acute. Currently she states she is feeling much better and less confused. Initial laboratory studies showed white blood cell count of 6.5, hemoglobin 11.0, hematocrit 34.6, platelets 95, blood sugar was greater than 750, sodium 131, potassium 5.3, chloride 95, bicarb 24, BUN 34, creatinine 3.1 (patient had dialysis earlier today) lactic acid level was 2.9 the patient has a received rehydration at the [place] ER and a total of 20 units of insulin and her blood sugar is now 580 upon arrival to our facility. EKG is a paced rhythm. Chest x-ray was positive for pneumonia. She will be treated for community-acquired pneumonia and her diabetes managed. Past Medical History Allergies esomeprazole [From Nexium] Allergy (Verified 05/02/19 00:16) Upset Stomach Iodinated Contrast Media [CONTRASTS] Allergy (Verified 05/02/19 00:16) Other Home Medications: Ambulatory Orders Medication Instructions Recorded Aspirin 81 mg PO DAILY 04/06/18 Atorvastatin Calcium [Lipitor] 40 mg PO QHS 04/06/18 Carvedilol [Coreg] 6.25 mg PO BID 04/06/18 Clopidogrel Bisulfate [Plavix] 75 mg PO DAILY 04/06/18 Gabapentin [Neurontin] 600 mg PO TIDCM 04/06/18 Insulin Aspart [Novolog Flexpen 0 units SC TIDCM 04/06/18 ([facility])] Levothyroxine [Synthroid] 137 mcg PO DAILY 04/06/18 Metolazone [Zaroxolyn] 5 mg PO DAILY 04/06/18 Nitroglycerin (INPATIENT USE) 0.4 mg SUBLINGUAL Q5M PRN 04/06/18 [Nitrostat] Ramipril [Altace] 2.5 mg PO DAILY 04/06/18 Calcium Acetate 667 mg TIDCM 05/02/19 Furosemide 40 mg BID 05/02/19 Insulin Degludec [Tresiba] 24 units SQ DAILY 05/02/19 hydrALAZINE [Apresoline] 10 mg BID 05/02/19 Smoking Status: Former smoker - *Family History Maternal History Items: No pertinent history Review of Systems Constitutional: Denies: Chills, Fever, Weight Change HEENT: Denies: Head Aches, Sinus Congestion, Sinus Drainage Cardiovascular: Denies: Chest Pain, Palpitations Respiratory: Reports: Cough, Shortness of Breath. Denies: Shortness of breath at rest, Sputum production Gastrointestinal: Denies: Abdominal Pain, Nausea, Vomiting Genitourinary: Denies: Dysuria Musculoskeletal: Denies: Joint Pain, Joint Tenderness Skin: Denies: Rash, Wounds Neurological: Denies: Numbness, Tingling, Focal weakness Psychiatric: Denies: Anxiety, Depression, Homicidal Ideations, Suicidal Ideations Hematologic/ Lymphatic: Denies: Easy Bruising, Easy Bleeding VTE Information - Inpt Only VTE Present on Admission: No VTE Mechan Device Prophylaxis: SCD's VTE Pharm Prophylaxis ordered?: No Patient Problems: Active and Suspected Problems Diabetes (Acute) CAP (community acquired pneumonia) (Acute) Hyperglycemia (Acute) - Physical Exam Vitals/I&O's: Weight: 223 lb Body Mass Index (BMI) 38.2 General: Alert, Oriented x3, Cooperative HEENT: Atraumatic, Normocephalic Neck: Supple, No JVD, Negative Carotid Bruits Lungs: Clear to auscultation, Normal air movement Cardiovascular: Regular rate, Normal S1, Normal S2 Abdomen: Bowel Sounds Present, Soft Extremities: No edema Skin: No rashes Musculoskeletal: No Tenderness to Palpation of Joints or Extremities Neurological: Cranial nerves II-XII grossly intact Psych/Mental Status: Normal Affect, Appropriate Assessment/Plan All Active Problems PAD (peripheral artery disease) (Acute) Diabetes (Acute) CAP (community acquired pneumonia) (Acute) Hyperglycemia (Acute) Plan 1. Community-acquired pneumonia?Rocephin, azithromycin per routine protocol, oxygen per routine, based on exam DuoNeb breathing treatments are not required at this time. Repeat CBC BMP, lactic acid in the a.m. 2. Acute hyperglycemia?diabetes not controlled?add sliding scale insulin, IV hydration 3. Chronic renal failure?patient sees Dr. Walton and is due for next dialysis on Wednesday should that time arrive consult will be required. 4. DVT prophylaxis?SCDs Code Visit Inpatient E&M: 91734 Init Hosp L3
[2019-05-02 00:40] LABS: Bedside Glucose > 500 mg/dL (70-110)
[2019-05-02] MEDS: 0.9% Saline Lock 10 ML Syringe IV ×2 (01:40→13:50)
[2019-05-02] MEDS: 0.9% Normal Saline 1,000 ML 125 ML IV ×2 (01:40→10:30)
[2019-05-02 01:43] LABS: Lactic Acid 1.8 mmol/L (0.4-1.9)
[2019-05-02 06:24] LABS: Absolute Lymphocyte Count 0.56 X10^3/uL (0.83-4.51); Basophil# 0.02 X10^3/uL; Basophil% 0.4 % (0-1); Eosinophil# 0.03 X10^3/uL; Eosinophils% 0.6 % (0-5); Hematocrit 28.6 % (37-47); Hemoglobin 8.8 g/dL (12.0-15.0); Lymphocyte # 0.56 X10^3/ul (4.0); Lymphocyte % 11.3 % (19-41); Mean Corp Hgb Conc 30.8 g/dL (32-36); Mean Corpuscular Volume 110.4 fL (81-99); Mean Platelet Vol. 11.1 fl (6.2-12.0); Monocyte# 0.33 X10^3/uL; Monocyte% 6.6 % (0-10); NRBC Flagged by Analyzer 0 % (0-5); Neutrophil # 4.01 X10^3/uL (2.7-7.7); Neutrophil % 80.7 % (47-70); POSITIVE COUNT YES; POSITIVE DIFFERENTIAL YES; Platelet Count 60 K/mm3 (150-450); RBC Distribution Width CV 15.3 % (11.6-14.6); RBC Distribution Width SD 61.9 fl (35.1-43.9); Red Blood Count 2.59 M/mm3 (4.2-5.4)
[2019-05-02] MEDS: Levothyroxine 137 MCG Tablet PO (06:30)
[2019-05-02] MEDS: Insulin Lispro 100 UNIT/ML INSULN.PEN SC ×3 (06:30→22:43)
[2019-05-02 06:50] LABS: Differential Indicated SCAN CRITERIA MET
[2019-05-02 06:54] LABS: Anion Gap 9 (5-15); BUN 37 mg/dL (7-18); BUN/Creat Ratio 11.8 RATIO (10-20); Calcium,Total 7.6 mg/dL (8.5-10.1); Chloride 101 mmol/L (98-107); Creatinine, Serum 3.13 mg/dL (0.55-1.02); EST Glomerular Filtration Rate 16 mL/min (>60); Est Glom Filt Rate - Afr Amer 19 mL/min (>60); Estimated Creatinine Clearance 14.85 ml/min; Glucose 515 mg/dL (74-106); Potassium 4.8 mmol/L (3.5-5.1); Sodium Level 133 mmol/L (136-145)
[2019-05-02 07:08] LABS: Differential Comment SCANNED
[2019-05-02 07:09] LABS: Platelet Estimate MOD DEC (ADEQ)
[2019-05-02] MEDS: Gabapentin 600 MG Tablet PO ×3 (08:24→17:24)
[2019-05-02] MEDS: Glucerna Shake 120 ML LIQUID PO ×2 (08:24→13:51)
[2019-05-02] MEDS: Furosemide 40 MG Tablet PO ×2 (08:25→17:24)
[2019-05-02] MEDS: Clopidogrel Bisulfate 75 MG Tablet PO (08:25)
[2019-05-02] MEDS: Ramipril 2.5 MG Capsule PO (08:25)
[2019-05-02] MEDS: metOLazone 5 MG Tablet PO (08:25)
[2019-05-02] MEDS: hydrALAZINE 10 MG Tablet PO ×2 (08:26→22:45)
[2019-05-02] MEDS: Carvedilol 6.25 MG Tablet PO ×2 (08:26→22:44)
[2019-05-02] MEDS: Ceftriaxone 1 GM/50 ML BAG IV (09:53)
--- NOTE | 2019-05-02 11:00 | CASEMGMT ---
ROMÁN DAVIS Face to Face with patient for initial transition planning/care coordination assessment. ROMÁN DAVIS introduced self and role at [facility]. Patient lying in bed, alert and oriented. Patient willing to participate in assessment and is able to answer all questions appropriately. Care providers, pharmacy, and demographics verified. Patient wishes to discharge home, denies need for home health at this time. Patient states she has no further needs or concerns at this time. CM to follow for discharge planning needs that may arise. PCP: Ashley Specialists: Madai, complex care nurse; Isabelle, nephrology, Delia, endocrinology. Preferred Pharmacy: [facility] Insurance: [facility], [employer] Prescription Benefit: yes Living Will/HPOA: yes, Simon Cain LNOK: Living Arrangements: Patient lives with in 1 story home with 4 steps and railing to enter the home. Transportation: , self DME/HHC: Patient states she has cane and walker at home. Denies home oxygen. Denies previous HHC. Patient has dialysis MWF 0620 at [facility]. ROMÁN DAVIS notified [facility] of patient being admitted to [facility]. Disposition Plan: Patient to discharge home with family support and follow-up plans in pace. Nette ANGUIANO, RN, CM
--- NOTE | 2019-05-02 12:02 | NURSING ---
patients blood sugar 468; pts implanted device reads 478. MD notified. ok to use patients readings after comparing 2 more times with our meter.
[2019-05-02] MEDS: Insulin Lispro 100 UNIT/ML INSULN.PEN 25 UNIT SC (12:13)
[2019-05-02 12:21] LABS: Bedside Glucose 468 mg/dL (70-110)
--- NOTE | 2019-05-02 15:44 | PN_ITS ---
Patient Problems: Active and Suspected Problems Diabetes (Acute) CAP (community acquired pneumonia) (Acute) Hyperglycemia (Acute) Vitals/I&O's: Vital Signs Temp Pulse Resp BP Pulse Ox 98.5 F 80 19 H 125/52 H 100 05/02/19 13:55 05/02/19 14:24 05/02/19 14:24 05/02/19 13:55 05/02/19 14:24 Oxygen Flow Rate (L/min) 2 Oxygen Delivery Method Nasal Cannula Weight: 223 lb Body Mass Index (BMI) 38.2 Intake and Output for Last 24 Hours 04/30/19 05/01/19 05/02/19 23:59 23:59 23:59 Intake Total 1611.25 / 1611.25 Balance 1611.25 / 161. General: Alert, Oriented x3, Cooperative, No apparent distress HEENT: Atraumatic, PERRLA, EOMI, Normocephalic Oral: Dry Mucosa Neck: Supple, No JVD Lungs: Clear to auscultation, Normal air movement, No rhonchi, No wheeze, No rales, Diminished Cardiovascular: Regular rate, Regular Rhythm, Normal S1, Normal S2, No murmurs Abdomen: Soft, Non Tender, Non-Distended, No Hepato-splenomegaly Extremities: No edema, Capillary Refill Less than 3 Seconds Skin: No rashes, No breakdown Neurological: Neuro grossly intact, Sensory exam intact to light touch and pain Psych/Mental Status: Normal Affect, Appropriate Laboratory Results 05/02/19 00:20: POC Glucose > 500 H* 05/02/19 01:05: Lactic Acid 1.8 05/02/19 05:38: WBC 5.0, RBC 2.59 L, Hgb 8.8 L, Hct 28.6 L, MCV 110.4 H, MCH 34.0 H, MCHC 30.8 L, RDW Std Deviation 61.9 H, RDW Coeff of Mary 15.3 H, Plt Count 60 L, MPV 11.1, Immature Gran % (Auto) 0.400, Neut % (Auto) 80.7 H, Lymph % (Auto) 11.3 L, [place] % (Auto) 6.6, Eos % (Auto) 0.6, Baso % (Auto) 0.4, Absolute Neuts (auto) 4.0, Absolute Lymphs (auto) 0.56 L, Nucleated RBC % 0, Differential Comment SCANNED, Platelet Estimate MOD 05/02/19 05:38: Sodium 133 L, Potassium 4.8, Chloride 101, Carbon Dioxide 23.0, Anion Gap 9, BUN 37 H, Creatinine 3.13 H, Estim Creat Clear Calc 14.85, Est GFR (MDRD) Af Amer 19 L, Est GFR (MDRD) Non-Af 16 L, BUN/Creatinine Ratio 11.8, Glucose 515 H*, Calcium 7.6 L 05/02/19 11:47: POC Glucose 468 H* Current Medications Albuterol/Ipratropium (Duoneb) 3 ml INHALATION Q6HWA.RT [facility] Aspirin (Aspirin, Baby) 81 mg PO QHS [facility] Atorvastatin Calcium (Lipitor) 40 mg PO QHS [facility] Carvedilol (Coreg) 6.25 mg PO BID [facility] Last Admin: 05/02/19 08:26 Dose: 6.25 mg Documented by: Clopidogrel Bisulfate (Plavix) 75 mg PO DAILY [facility] Last Admin: 05/02/19 08:25 Dose: 75 mg Documented by: Furosemide (Lasix) 40 mg PO SuTuThSa@1000,1600 [facility] Last Admin: 05/02/19 08:25 Dose: 40 mg Documented by: Gabapentin (Neurontin) 600 mg PO TIDCM [facility] Last Admin: 05/02/19 12:08 Dose: 600 mg Documented by: Glucagon () 1 mg IM .X1 PRN PRN Reason: Hypoglycemia Hydralazine HCl (Apresoline) 10 mg PO BID [facility] Last Admin: 05/02/19 08:26 Dose: 10 mg Documented by: Sodium Chloride () 250 mls @ 15 mls/hr IV .[id number] PRN PRN Reason: Saline Flush Sodium Chloride () 250 mls @ 15 mls/hr IV .[id number] PRN PRN Reason: Additional IVPB Infusion Sodium Chloride () 1,000 mls @ 125 mls/hr IV .Q8H [facility] Last Infusion: 05/02/19 11:33 Dose: 125 mls/hr Documented by: Ceftriaxone Sodium (Rocephin) 1 gm in 50 mls @ 100 mls/hr IV Q24 [facility] Last Infusion: 05/02/19 10:23 Dose: Infused Documented by: Azithromycin 500 mg/ Dextrose 255 mls @ 250 mls/hr IV Q24 [facility] Last Infusion: 05/02/19 11:33 Dose: Infused Documented by: Dextrose (Dextrose 10%-Water) 250 mls @ 999 mls/hr IV .Q16M PRN; Protocol PRN Reason: HYPOGLYCEMIA Insulin Glargine (Lantus (Bk)) 24 units SC DAILY [facility] Last Admin: 05/02/19 01:41 Dose: 24 units Documented by: Insulin Human Lispro (Humalog Kwikpen ([facility])) 0 unit SC ACHS [facility]; Protocol Last Admin: 05/02/19 12:01 Dose: Not Given Documented by: Insulin Human Lispro (Humalog Kwikpen ([facility])) 10 unit SC TIDAC [facility] Levothyroxine Sodium (Synthroid) 137 mcg PO DAILY@0600 [facility] Last Admin: 05/02/19 06:30 Dose: 137 mcg Documented by: Metolazone (Zaroxolyn) 5 mg PO DAILY [facility] Last Admin: 05/02/19 08:25 Dose: 5 mg Documented by: Nitroglycerin (Nitrostat) 0.4 mg SUBLINGUAL Q5M PRN PRN Reason: CHEST Nutritional Formula (Lactose Free) (Glucerna Shake) 120 ml PO 4X/DAY [facility] Last Admin: 05/02/19 13:51 Dose: 120 ml Documented by: Ramipril (Altace) 2.5 mg PO DAILY [facility] Last Admin: 05/02/19 08:25 Dose: 2.5 mg Documented by: Sodium Chloride () 10 - 40 ml IV UD PRN PRN Reason: SALINE FLUSH Last Admin: 05/02/19 13:50 Dose: 10 ml Documented by: STROKE Vital Signs/Narrative: Vital Signs Temp Pulse Resp BP Pulse Ox 05/02/19 14:24 80 19 H 100 05/02/19 13:55 98.5 F 72 20 H 125/52 H 100 Medical Necessity - Tobacco Use Smoking Status: Former smoker Assessment/Plan All Active Problems PAD (peripheral artery disease) (Acute) Diabetes (Acute) CAP (community acquired pneumonia) (Acute) Hyperglycemia (Acute) 1. Community-acquired pneumonia -Presented to an outside hospital was transferred here due to bed availability and dialysis need -Continue with Rocephin and azithromycin -She seems to be a little bit anxious and unable to catch her breath even though she sats on her percent on room air -Lactic acid is normal at 1.8 -Because she had been given antibiotics at the outside hospital no culture data was obtained 2. End-stage renal disease secondary to DM 2 -Continue with her home insulin dose and will adjust as necessary for hyperglycemia due to infection -We will consult nephrology for dialysis and continue with her Lasix -Discontinue her IV fluids 3. HTN/HLD/PAD -Blood pressure is stable -Continue with Coreg, hydralazine, metolazone, ramipril -Continue with Lipitor, aspirin, Plavix 4. Hypothyroidism -Stable -Continue with Synthroid DVT: SCDs
[2019-05-02 16:34] LABS: Vitamin B12 439 pg/mL (211-911)
[2019-05-02 16:46] LABS: Bedside Glucose 247 mg/dL (70-110)
[2019-05-02] MEDS: Insulin Lispro 100 UNIT/ML INSULN.PEN 10 UNIT SC (17:24)
--- NOTE | 2019-05-02 17:50 | PCM.CONS.R ---
Problem List (1) ESRD (end stage renal disease) on dialysis Status: Acute Consultation - Renal 05/02/19 PCP/ Referring MD: Requesting physician: Dr Lyle Primary care physician: Mary Ramirez DO Reason for Consultation:: ESRD - History of Present Illness History of Present Illness: The patient is a 68 year old F Well known to us. Known history of end-stage renal disease on hemodialysis Wednesday, Wednesday, Wednesday schedule. Last dialysis was yesterday. Presented to emergency room with complaints of fevers, chills, shortness of breath. Chest x-ray consistent with pneumonia. Currently on antibiotics. She did get her flu shot this season. No recent issues with dialysis. - Allergies Allergies: Allergies esomeprazole [From Nexium] Allergy (Verified 05/02/19 00:16) Upset Stomach Iodinated Contrast Media [CONTRASTS] Allergy (Verified 05/02/19 00:16) Other - Current Medications Current Medications: Current Medications Albuterol/Ipratropium (Duoneb) 3 ml INHALATION Q6HWA.RT [facility] Aspirin (Aspirin, Baby) 81 mg PO QHS [facility] Atorvastatin Calcium (Lipitor) 40 mg PO QHS [facility] Carvedilol (Coreg) 6.25 mg PO BID [facility] Last Admin: 05/02/19 08:26 Dose: 6.25 mg Documented by: Clopidogrel Bisulfate (Plavix) 75 mg PO DAILY [facility] Last Admin: 05/02/19 08:25 Dose: 75 mg Documented by: Furosemide (Lasix) 40 mg PO SuTuThSa@1000,1600 [facility] Last Admin: 05/02/19 17:24 Dose: 40 mg Documented by: Gabapentin (Neurontin) 600 mg PO TIDCM [facility] Last Admin: 05/02/19 17:24 Dose: 600 mg Documented by: Glucagon () 1 mg IM .X1 PRN PRN Reason: Hypoglycemia Hydralazine HCl (Apresoline) 10 mg PO BID [facility] Last Admin: 05/02/19 08:26 Dose: 10 mg Documented by: Sodium Chloride () 250 mls @ 15 mls/hr IV .[id number] PRN PRN Reason: Saline Flush Sodium Chloride () 250 mls @ 15 mls/hr IV .[id number] PRN PRN Reason: Additional IVPB Infusion Ceftriaxone Sodium (Rocephin) 1 gm in 50 mls @ 100 mls/hr IV Q24 [facility] Last Infusion: 05/02/19 10:23 Dose: Infused Documented by: Azithromycin 500 mg/ Dextrose 255 mls @ 250 mls/hr IV Q24 [facility] Last Infusion: 05/02/19 11:33 Dose: Infused Documented by: Dextrose (Dextrose 10%-Water) 250 mls @ 999 mls/hr IV .Q16M PRN; Protocol PRN Reason: HYPOGLYCEMIA Insulin Glargine (Lantus (Bk)) 24 units SC DAILY [facility] Last Admin: 05/02/19 01:41 Dose: 24 units Documented by: Insulin Human Lispro (Humalog Kwikpen ([facility])) 0 unit SC ACHS [facility]; Protocol Last Admin: 05/02/19 17:24 Dose: 4 units Documented by: Insulin Human Lispro (Humalog Kwikpen ([facility])) 10 unit SC TIDAC [facility] Last Admin: 05/02/19 17:24 Dose: 10 units Documented by: Levothyroxine Sodium (Synthroid) 137 mcg PO DAILY@0600 [facility] Last Admin: 05/02/19 06:30 Dose: 137 mcg Documented by: Metolazone (Zaroxolyn) 5 mg PO DAILY [facility] Last Admin: 05/02/19 08:25 Dose: 5 mg Documented by: Nitroglycerin (Nitrostat) 0.4 mg SUBLINGUAL Q5M PRN PRN Reason: CHEST Nutritional Formula (Lactose Free) (Glucerna Shake) 120 ml PO 4X/DAY [facility] Last Admin: 05/02/19 17:26 Dose: Not Given Documented by: Ramipril (Altace) 2.5 mg PO DAILY [facility] Last Admin: 05/02/19 08:25 Dose: 2.5 mg Documented by: Sodium Chloride () 10 - 40 ml IV UD PRN PRN Reason: SALINE FLUSH Last Admin: 05/02/19 13:50 Dose: 10 ml Documented by: - Social History Smoking Status: Former smoker - Family History Maternal History Items: No pertinent history Review of Systems Constitutional: Denies: Chills, Fever, Weight Change HEENT: Denies: Head Aches, Sinus Congestion, Sinus Drainage Cardiovascular: Denies: Chest Pain, Palpitations Respiratory: Reports: Shortness of Breath, Shortness of breath at rest. Denies: Cough, Sputum production Gastrointestinal: Denies: Abdominal Pain, Nausea, Vomiting Genitourinary: Denies: Dysuria Musculoskeletal: Denies: Joint Pain, Joint Tenderness Skin: Denies: Rash, Wounds Neurological: Denies: Numbness, Tingling, Focal weakness Psychiatric: Denies: Anxiety, Depression, Homicidal Ideations, Suicidal Ideations Hematologic/ Lymphatic: Denies: Easy Bruising, Easy Bleeding Patient Problems: Active and Suspected Problems Diabetes (Acute) CAP (community acquired pneumonia) (Acute) Hyperglycemia (Acute) ESRD (end stage renal disease) on dialysis (Acute) - Physical Exam Vitals/I&O's: Vital Signs Temp Pulse Resp BP Pulse Ox 98.5 F 80 19 H 125/52 H 100 05/02/19 13:55 05/02/19 14:24 05/02/19 14:24 05/02/19 13:55 05/02/19 14:24 Oxygen Flow Rate (L/min) 2 Oxygen Delivery Method Nasal Cannula Weight: 101.151 kg Body Mass Index (BMI) 38.2 Intake and Output for Last 24 Hours 04/30/19 05/01/19 05/02/19 23:59 23:59 23:59 Intake Total 2175.83 / 2175.83 Balance 2175.83 / 2175.83 General: Alert, Oriented x3, Cooperative HEENT: Atraumatic, PERRLA, EOMI, Normocephalic Neck: Supple, No JVD, Negative Carotid Bruits Lungs: Clear to auscultation, Normal air movement Cardiovascular: Regular rate, No murmurs Abdomen: Bowel Sounds Present, Soft, Non Tender Extremities: No edema, Capillary Refill Less than 3 Seconds Skin: No rashes, No breakdown Musculoskeletal: No Tenderness to Palpation of Joints or Extremities Neurological: Cranial nerves II-XII grossly intact Psych/Mental Status: Normal Affect, Appropriate Laboratory Results 05/02/19 00:20: POC Glucose > 500 H* 05/02/19 01:05: Lactic Acid 1.8 05/02/19 05:38: WBC 5.0, RBC 2.59 L, Hgb 8.8 L, Hct 28.6 L, MCV 110.4 H, MCH 34.0 H, MCHC 30.8 L, RDW Std Deviation 61.9 H, RDW Coeff of Mary 15.3 H, Plt Count 60 L, MPV 11.1, Immature Gran % (Auto) 0.400, Neut % (Auto) 80.7 H, Lymph % (Auto) 11.3 L, [place] % (Auto) 6.6, Eos % (Auto) 0.6, Baso % (Auto) 0.4, Absolute Neuts (auto) 4.0, Absolute Lymphs (auto) 0.56 L, Nucleated RBC % 0, Differential Comment SCANNED, Platelet Estimate MOD 05/02/19 05:38: Sodium 133 L, Potassium 4.8, Chloride 101, Carbon Dioxide 23.0, Anion Gap 9, BUN 37 H, Creatinine 3.13 H, Estim Creat Clear Calc 14.85, Est GFR (MDRD) Af Amer 19 L, Est GFR (MDRD) Non-Af 16 L, BUN/Creatinine Ratio 11.8, Glucose 515 H*, Calcium 7.6 L 05/02/19 05:38: Vitamin B12 439 05/02/19 11:47: POC Glucose 468 H* 05/02/19 16:31: POC Glucose 247 H Current Medications Albuterol/Ipratropium (Duoneb) 3 ml INHALATION Q6HWA.RT [facility] Aspirin (Aspirin, Baby) 81 mg PO QHS [facility] Atorvastatin Calcium (Lipitor) 40 mg PO QHS [facility] Carvedilol (Coreg) 6.25 mg PO BID [facility] Last Admin: 05/02/19 08:26 Dose: 6.25 mg Documented by: Clopidogrel Bisulfate (Plavix) 75 mg PO DAILY [facility] Last Admin: 05/02/19 08:25 Dose: 75 mg Documented by: Furosemide (Lasix) 40 mg PO SuTuThSa@1000,1600 [facility] Last Admin: 05/02/19 17:24 Dose: 40 mg Documented by: Gabapentin (Neurontin) 600 mg PO TIDCM [facility] Last Admin: 05/02/19 17:24 Dose: 600 mg Documented by: Glucagon () 1 mg IM .X1 PRN PRN Reason: Hypoglycemia Hydralazine HCl (Apresoline) 10 mg PO BID [facility] Last Admin: 05/02/19 08:26 Dose: 10 mg Documented by: Sodium Chloride () 250 mls @ 15 mls/hr IV .[id number] PRN PRN Reason: Saline Flush Sodium Chloride () 250 mls @ 15 mls/hr IV .[id number] PRN PRN Reason: Additional IVPB Infusion Ceftriaxone Sodium (Rocephin) 1 gm in 50 mls @ 100 mls/hr IV Q24 [facility] Last Infusion: 05/02/19 10:23 Dose: Infused Documented by: Azithromycin 500 mg/ Dextrose 255 mls @ 250 mls/hr IV Q24 [facility] Last Infusion: 05/02/19 11:33 Dose: Infused Documented by: Dextrose (Dextrose 10%-Water) 250 mls @ 999 mls/hr IV .Q16M PRN; Protocol PRN Reason: HYPOGLYCEMIA Insulin Glargine (Lantus ([facility])) 24 units SC DAILY [facility] Last Admin: 05/02/19 01:41 Dose: 24 units Documented by: Insulin Human Lispro (Humalog Kwikpen ([facility])) 0 unit SC ACHS [facility]; Protocol Last Admin: 05/02/19 17:24 Dose: 4 units Documented by: Insulin Human Lispro (Humalog Kwikpen ([facility])) 10 unit SC TIDAC [facility] Last Admin: 05/02/19 17:24 Dose: 10 units Documented by: Levothyroxine Sodium (Synthroid) 137 mcg PO DAILY@0600 [facility] Last Admin: 05/02/19 06:30 Dose: 137 mcg Documented by: Metolazone (Zaroxolyn) 5 mg PO DAILY [facility] Last Admin: 05/02/19 08:25 Dose: 5 mg Documented by: Nitroglycerin (Nitrostat) 0.4 mg SUBLINGUAL Q5M PRN PRN Reason: CHEST Nutritional Formula (Lactose Free) (Glucerna Shake) 120 ml PO 4X/DAY [facility] Last Admin: 05/02/19 17:26 Dose: Not Given Documented by: Ramipril (Altace) 2.5 mg PO DAILY [facility] Last Admin: 05/02/19 08:25 Dose: 2.5 mg Documented by: Sodium Chloride () 10 - 40 ml IV UD PRN PRN Reason: SALINE FLUSH Last Admin: 05/02/19 13:50 Dose: 10 ml Documented by: Assessment/Plan All Active Problems PAD (peripheral artery disease) (Acute) Diabetes (Acute) CAP (community acquired pneumonia) (Acute) Hyperglycemia (Acute) ESRD (end stage renal disease) on dialysis (Acute) End-stage renal disease. Scheduled for hemodialysis tomorrow. Access is IJ tunneled dialysis catheter. She had a fistula which has not been working really well. Working with vascular surgeon on this. Pneumonia. Community-acquired. Currently on antibiotics as per primary service. Anemia. Hemoglobin is at goal.
[2019-05-02] MEDS: Ipratropium/Albuterol Sulfate 3 ML AMPUL.NEB INHALATION (19:24)
[2019-05-02] MEDS: Acetaminophen 500 MG Tablet 1000 MG PO (22:36)
[2019-05-02] MEDS: MELATONIN 3 MG TABLET PO (22:36)
[2019-05-02] MEDS: Aspirin 81 MG TAB.CHEW PO (22:44)
[2019-05-02] MEDS: Atorvastatin Calcium 40 MG Tablet PO (22:45)
[2019-05-02 23:11] LABS: Bedside Glucose 171 mg/dL (70-110)
[2019-05-03] VITALS (10 sets, daily range): BP systolic 105–128; BP diastolic 41–54; PULSE 69–88; RESP 18–20; TEMP 36.7–36.8; O2SAT 96–99
[2019-05-03] MEDS: Levothyroxine 137 MCG Tablet PO (05:12)
[2019-05-03 06:13] LABS: Absolute Lymphocyte Count 0.93 X10^3/uL (0.83-4.51); Absolute Neutrophil Count 3.4 X10^3/uL (2.0-7.7); Basophil# 0.02 X10^3/uL; Basophil% 0.4 % (0-1); Eosinophils% 4.1 % (0-5); Hematocrit 26.9 % (37-47); Hemoglobin 8.4 g/dL (12.0-15.0); Lymphocyte # 0.93 X10^3/ul (4.0); Lymphocyte % 19.2 % (19-41); Mean Corp Hgb Conc 31.2 g/dL (32-36); Mean Corpuscular Hgb 34.7 pg (27.0-32.0); Mean Corpuscular Volume 111.2 fL (81-99); Monocyte# 0.32 X10^3/uL; Monocyte% 6.6 % (0-10); NRBC Flagged by Analyzer 0 % (0-5); Neutrophil # 3.36 X10^3/uL (2.7-7.7); Neutrophil % 69.3 % (47-70); POSITIVE COUNT YES; Platelet Count 64 K/mm3 (150-450); RBC Distribution Width CV 15.1 % (11.6-14.6); RBC Distribution Width SD 59.9 fl (35.1-43.9); Red Blood Count 2.42 M/mm3 (4.2-5.4); White Blood Count 4.9 K/mm3 (4.4-11.0)
[2019-05-03 06:36] LABS: Anion Gap 5 (5-15); BUN 47 mg/dL (7-18); BUN/Creat Ratio 14.3 RATIO (10-20); Calcium,Total 8.6 mg/dL (8.5-10.1); Chloride 107 mmol/L (98-107); Creatinine, Serum 3.29 mg/dL (0.55-1.02); EST Glomerular Filtration Rate 15 mL/min (>60); Est Glom Filt Rate - Afr Amer 18 mL/min (>60); Estimated Creatinine Clearance 14.13 ml/min; Glucose 133 mg/dL (74-106); Potassium 4.2 mmol/L (3.5-5.1); Sodium Level 138 mmol/L (136-145)
[2019-05-03 07:10] LABS: Bedside Glucose 477 mg/dL (70-110)
[2019-05-03] MEDS: Ipratropium/Albuterol Sulfate 3 ML AMPUL.NEB INHALATION ×2 (07:14→18:57)
[2019-05-03] MEDS: Clopidogrel Bisulfate 75 MG Tablet PO (08:36)
[2019-05-03] MEDS: Insulin Lispro 100 UNIT/ML INSULN.PEN 10 UNIT SC ×2 (08:37→17:04)
[2019-05-03] MEDS: Gabapentin 600 MG Tablet PO ×3 (08:37→17:04)
[2019-05-03] MEDS: Insulin Lispro 100 UNIT/ML INSULN.PEN SC ×3 (08:37→22:40)
--- NOTE | 2019-05-03 11:52 | PCM.PN.HOSP ---
Patient Problems: Active and Suspected Problems Diabetes (Acute) CAP (community acquired pneumonia) (Acute) Hyperglycemia (Acute) ESRD (end stage renal disease) on dialysis (Acute) Subjective: She is feeling much better today during dialysis, says that she is not short of breath anymore. Denies any fevers or chills. Vitals/I&O's: Vital Signs Temp Pulse Resp BP Pulse Ox 98.0 F 70 18 111/41 L 96 05/03/19 08:34 05/03/19 08:34 05/03/19 08:34 05/03/19 08:34 05/03/19 08:34 Oxygen Flow Rate (L/min) 2 Oxygen Delivery Method Room Air Weight: 223 lb Body Mass Index (BMI) 38.2 Intake and Output for Last 24 Hours 05/01/19 05/02/19 05/03/19 23:59 23:59 23:59 Intake Total 2575.83 / 2575.83 Balance 2575.83 / 2575.83 General: Alert, Oriented x3, Cooperative, No apparent distress HEENT: Atraumatic, PERRLA, EOMI, Normocephalic Oral: Dry Mucosa Neck: Supple, No JVD Lungs: Clear to auscultation, Normal air movement, No rhonchi, No wheeze, No rales, Diminished Cardiovascular: Regular rate, Regular Rhythm, Normal S1, Normal S2, No murmurs Abdomen: Soft, Non Tender, Non-Distended, No Hepato-splenomegaly Extremities: No edema, Capillary Refill Less than 3 Seconds Skin: No rashes, No breakdown Neurological: Neuro grossly intact, Sensory exam intact to light touch and pain Psych/Mental Status: Normal Affect, Appropriate Laboratory Results 05/02/19 05:38: Vitamin B12 439 05/02/19 05:38: Folate 9.90 05/02/19 06:25: POC Glucose 477 H* 05/02/19 11:47: POC Glucose 468 H* 05/02/19 16:31: POC Glucose 247 H 05/02/19 22:42: POC Glucose 171 H 05/03/19 05:14: WBC 4.9, RBC 2.42 L, Hgb 8.4 L, Hct 26.9 L, MCV 111.2 H, MCH 34.7 H, MCHC 31.2 L, RDW Std Deviation 59.9 H, RDW Coeff of Mary 15.1 H, Plt Count 64 L, MPV 11.0, Immature Gran % (Auto) 0.400, Neut % (Auto) 69.3, Lymph % (Auto) 19.2, [place] % (Auto) 6.6, Eos % (Auto) 4.1, Baso % (Auto) 0.4, Absolute Neuts (auto) 3.4, Absolute Lymphs (auto) 0.93, Nucleated RBC % 0 05/03/19 05:14: Sodium 138, Potassium 4.2, Chloride 107, Carbon Dioxide 26.0, Anion Gap 5, BUN 47 H, Creatinine 3.29 H, Estim Creat Clear Calc 14.13, Est GFR (MDRD) Af Amer 18 L, Est GFR (MDRD) Non-Af 15 L, BUN/Creatinine Ratio 14.3, Glucose 133 H, Calcium 8.6 Current Medications Acetaminophen (Tylenol) 650 mg PO Q6H PRN PRN PRN Reason: Pain Score 1-10/10/FEVER Albuterol/Ipratropium (Duoneb) 3 ml INHALATION Q6HWA.RT [facility] Last Admin: 05/03/19 07:14 Dose: 3 ml Documented by: Aspirin (Aspirin, Baby) 81 mg PO QHS [facility] Last Admin: 05/02/19 22:44 Dose: 81 mg Documented by: Atorvastatin Calcium (Lipitor) 40 mg PO QHS [facility] Last Admin: 05/02/19 22:45 Dose: 40 mg Documented by: Carvedilol (Coreg) 6.25 mg PO BID [facility] Last Admin: 05/02/19 22:44 Dose: 6.25 mg Documented by: Clopidogrel Bisulfate (Plavix) 75 mg PO DAILY [facility] Last Admin: 05/03/19 08:36 Dose: 75 mg Documented by: Furosemide (Lasix) 40 mg PO SuTuThSa@1000,1600 [facility] Last Admin: 05/02/19 17:24 Dose: 40 mg Documented by: Gabapentin (Neurontin) 600 mg PO TIDCM [facility] Last Admin: 05/03/19 08:37 Dose: 600 mg Documented by: Glucagon () 1 mg IM .X1 PRN PRN Reason: Hypoglycemia Hydralazine HCl (Apresoline) 10 mg PO BID [facility] Last Admin: 05/02/19 22:45 Dose: 10 mg Documented by: Sodium Chloride () 250 mls @ 15 mls/hr IV .[id number] PRN PRN Reason: Saline Flush Sodium Chloride () 250 mls @ 15 mls/hr IV .[id number] PRN PRN Reason: Additional IVPB Infusion Ceftriaxone Sodium (Rocephin) 1 gm in 50 mls @ 100 mls/hr IV Q24 [facility] Last Infusion: 05/02/19 10:23 Dose: Infused Documented by: Azithromycin 500 mg/ Dextrose 255 mls @ 250 mls/hr IV Q24 [facility] Last Infusion: 05/02/19 11:33 Dose: Infused Documented by: Dextrose (Dextrose 10%-Water) 250 mls @ 999 mls/hr IV .Q16M PRN; Protocol PRN Reason: HYPOGLYCEMIA Insulin Glargine (Lantus ([facility])) 24 units SC DAILY [facility] Last Admin: 05/03/19 08:37 Dose: 24 units Documented by: Insulin Human Lispro (Humalog Kwikpen ([facility])) 0 unit SC ACHS [facility]; Protocol Last Admin: 05/03/19 08:37 Dose: 2 units Documented by: Insulin Human Lispro (Humalog Kwikpen ([facility])) 10 unit SC TIDAC [facility] Last Admin: 05/03/19 08:37 Dose: 10 units Documented by: Levothyroxine Sodium (Synthroid) 137 mcg PO DAILY@0600 [facility] Last Admin: 05/03/19 05:12 Dose: 137 mcg Documented by: Melatonin (Melatonin) 3 mg PO QHS PRN PRN Reason: INSOMNIA Last Admin: 05/02/19 22:36 Dose: 3 mg Documented by: Metolazone (Zaroxolyn) 5 mg PO DAILY [facility] Last Admin: 05/02/19 08:25 Dose: 5 mg Documented by: Nitroglycerin (Nitrostat) 0.4 mg SUBLINGUAL Q5M PRN PRN Reason: CHEST Nutritional Formula (Lactose Free) (Glucerna Shake) 120 ml PO 4X/DAY [facility] Last Admin: 05/03/19 08:38 Dose: Not Given Documented by: Ramipril (Altace) 2.5 mg PO DAILY [facility] Last Admin: 05/02/19 08:25 Dose: 2.5 mg Documented by: Sodium Chloride () 10 - 40 ml IV UD PRN PRN Reason: SALINE FLUSH Last Admin: 05/02/19 13:50 Dose: 10 ml Documented by: STROKE Vital Signs/Narrative: Vital Signs Temp Pulse Resp BP Pulse Ox 05/03/19 08:34 98.0 F 70 18 111/41 L 96 Medical Necessity - Tobacco Use Smoking Status: Former smoker Assessment/Plan All Active Problems PAD (peripheral artery disease) (Acute) Diabetes (Acute) CAP (community acquired pneumonia) (Acute) Hyperglycemia (Acute) ESRD (end stage renal disease) on dialysis (Acute) 1. Community-acquired pneumonia -Presented to an outside hospital was transferred here due to bed availability and dialysis need -Continue with Rocephin and azithromycin -She seems to be less anxious today since she is feeling a little better -Lactic acid is normal at 1.8 -Because she had been given antibiotics at the outside hospital no culture data was obtained 2. End-stage renal disease secondary to DM 2 -Continue with her home insulin dose and will adjust as necessary for hyperglycemia due to infection -We will consult nephrology for dialysis and continue with her Lasix -She is currently in the process of receiving dialysis 3. HTN/HLD/PAD -Blood pressure is stable -Continue with Coreg, hydralazine, metolazone, ramipril -Continue with Lipitor, aspirin, Plavix 4. Hypothyroidism -Stable -Continue with Synthroid DVT: SCDs Code Visit Inpatient E&M: 01541 Subs Hosp L2
--- NOTE | 2019-05-03 12:19 | PCM.PN.REN ---
Patient Problems: Active and Suspected Problems Diabetes (Acute) CAP (community acquired pneumonia) (Acute) Hyperglycemia (Acute) ESRD (end stage renal disease) on dialysis (Acute) Subjective: No new complaints - Physical Exam Vitals/I&O's: Vital Signs Temp Pulse Resp BP Pulse Ox 98.0 F 70 18 111/41 L 96 05/03/19 08:34 05/03/19 08:34 05/03/19 08:34 05/03/19 08:34 05/03/19 08:34 Oxygen Flow Rate (L/min) 2 Oxygen Delivery Method Room Air Weight: 101.151 kg Body Mass Index (BMI) 38.2 Intake and Output for Last 24 Hours 05/01/19 05/02/19 05/03/19 23:59 23:59 23:59 Intake Total 2575.83 / 2575.83 240 / 240 Balance 2575.83 / 2575.83 240 / 240 General: Alert, Oriented x3, Cooperative HEENT: Atraumatic, PERRLA, EOMI, Normocephalic Neck: Supple, No JVD, Negative Carotid Bruits Lungs: Clear to auscultation, Normal air movement Cardiovascular: Regular rate, No murmurs Abdomen: Bowel Sounds Present, Soft, Non Tender Extremities: No edema, Capillary Refill Less than 3 Seconds Skin: No rashes, No breakdown Musculoskeletal: No Tenderness to Palpation of Joints or Extremities Neurological: Cranial nerves II-XII grossly intact Psych/Mental Status: Normal Affect, Appropriate Laboratory Results 05/02/19 05:38: Vitamin B12 439 05/02/19 05:38: Folate 9.90 05/02/19 06:25: POC Glucose 477 H* 05/02/19 11:47: POC Glucose 468 H* 05/02/19 16:31: POC Glucose 247 H 05/02/19 22:42: POC Glucose 171 H 05/03/19 05:14: WBC 4.9, RBC 2.42 L, Hgb 8.4 L, Hct 26.9 L, MCV 111.2 H, MCH 34.7 H, MCHC 31.2 L, RDW Std Deviation 59.9 H, RDW Coeff of Mary 15.1 H, Plt Count 64 L, MPV 11.0, Immature Gran % (Auto) 0.400, Neut % (Auto) 69.3, Lymph % (Auto) 19.2, Christian % (Auto) 6.6, Eos % (Auto) 4.1, Baso % (Auto) 0.4, Absolute Neuts (auto) 3.4, Absolute Lymphs (auto) 0.93, Nucleated RBC % 0 05/03/19 05:14: Sodium 138, Potassium 4.2, Chloride 107, Carbon Dioxide 26.0, Anion Gap 5, BUN 47 H, Creatinine 3.29 H, Estim Creat Clear Calc 14.13, Est GFR (MDRD) Af Amer 18 L, Est GFR (MDRD) Non-Af 15 L, BUN/Creatinine Ratio 14.3, Glucose 133 H, Calcium 8.6 Current Medications Acetaminophen (Tylenol) 650 mg PO Q6H PRN PRN PRN Reason: Pain Score 1-10/10/FEVER Albuterol/Ipratropium (Duoneb) 3 ml INHALATION Q6HWA.RT [facility] Last Admin: 05/03/19 07:14 Dose: 3 ml Documented by: Aspirin (Aspirin, Baby) 81 mg PO QHS [facility] Last Admin: 05/02/19 22:44 Dose: 81 mg Documented by: Atorvastatin Calcium (Lipitor) 40 mg PO QHS [facility] Last Admin: 05/02/19 22:45 Dose: 40 mg Documented by: Carvedilol (Coreg) 6.25 mg PO BID [facility] Last Admin: 05/02/19 22:44 Dose: 6.25 mg Documented by: Clopidogrel Bisulfate (Plavix) 75 mg PO DAILY [facility] Last Admin: 05/03/19 08:36 Dose: 75 mg Documented by: Furosemide (Lasix) 40 mg PO SuTuThSa@1000,1600 [facility] Last Admin: 05/02/19 17:24 Dose: 40 mg Documented by: Gabapentin (Neurontin) 600 mg PO TIDCM [facility] Last Admin: 05/03/19 08:37 Dose: 600 mg Documented by: Glucagon () 1 mg IM .X1 PRN PRN Reason: Hypoglycemia Hydralazine HCl (Apresoline) 10 mg PO BID [facility] Last Admin: 05/02/19 22:45 Dose: 10 mg Documented by: Sodium Chloride () 250 mls @ 15 mls/hr IV .[id number] PRN PRN Reason: Saline Flush Sodium Chloride () 250 mls @ 15 mls/hr IV .[id number] PRN PRN Reason: Additional IVPB Infusion Ceftriaxone Sodium (Rocephin) 1 gm in 50 mls @ 100 mls/hr IV Q24 [facility] Last Infusion: 05/02/19 10:23 Dose: Infused Documented by: Azithromycin 500 mg/ Dextrose 255 mls @ 250 mls/hr IV Q24 [facility] Last Infusion: 05/02/19 11:33 Dose: Infused Documented by: Dextrose (Dextrose 10%-Water) 250 mls @ 999 mls/hr IV .Q16M PRN; Protocol PRN Reason: HYPOGLYCEMIA Insulin Glargine (Lantus ([facility])) 24 units SC DAILY [facility] Last Admin: 05/03/19 08:37 Dose: 24 units Documented by: Insulin Human Lispro (Humalog Kwikpen ([facility])) 0 unit SC ACHS [facility]; Protocol Last Admin: 05/03/19 11:55 Dose: Not Given Documented by: Insulin Human Lispro (Humalog Kwikpen ([facility])) 10 unit SC TIDAC [facility] Last Admin: 05/03/19 08:37 Dose: 10 units Documented by: Levothyroxine Sodium (Synthroid) 137 mcg PO DAILY@0600 [facility] Last Admin: 05/03/19 05:12 Dose: 137 mcg Documented by: Melatonin (Melatonin) 3 mg PO QHS PRN PRN Reason: INSOMNIA Last Admin: 05/02/19 22:36 Dose: 3 mg Documented by: Metolazone (Zaroxolyn) 5 mg PO DAILY [facility] Last Admin: 05/02/19 08:25 Dose: 5 mg Documented by: Nitroglycerin (Nitrostat) 0.4 mg SUBLINGUAL Q5M PRN PRN Reason: CHEST Nutritional Formula (Lactose Free) (Glucerna Shake) 120 ml PO 4X/DAY [facility] Last Admin: 05/03/19 08:38 Dose: Not Given Documented by: Ramipril (Altace) 2.5 mg PO DAILY [facility] Last Admin: 05/02/19 08:25 Dose: 2.5 mg Documented by: Sodium Chloride () 10 - 40 ml IV UD PRN PRN Reason: SALINE FLUSH Last Admin: 05/02/19 13:50 Dose: 10 ml Documented by: Medical Necessity - Tobacco Use Smoking Status: Former smoker Assessment/Plan All Active Problems PAD (peripheral artery disease) (Acute) Diabetes (Acute) CAP (community acquired pneumonia) (Acute) Hyperglycemia (Acute) ESRD (end stage renal disease) on dialysis (Acute) End-stage renal disease. Seen on dialysis today. See orders/flow sheets. Pneumonia. Community-acquired. Currently on antibiotics as per primary service. Anemia. Hemoglobin is at goal.
[2019-05-03] MEDS: Ceftriaxone 1 GM/50 ML BAG IV (13:52)
[2019-05-03] MEDS: metOLazone 5 MG Tablet PO (13:53)
[2019-05-03] MEDS: Carvedilol 6.25 MG Tablet PO ×2 (13:53→22:39)
[2019-05-03] MEDS: hydrALAZINE 10 MG Tablet PO ×2 (13:54→22:39)
[2019-05-03] MEDS: Ramipril 2.5 MG Capsule PO (13:54)
--- NOTE | 2019-05-03 13:56 | DIALYSIS ---
HD x3.5 hours completed at 1320, tolerated well, UF 1000mL, CritLine ended profile B, accessed via right chest tunneled dialysis catheter, worked well, dressing changed pre-treatment, glue likely from tape/island dressings noted on lower end of catheter, site cleansed well with chloraprep swabs while changing dressing, Dr. Rubi notified while at bedside, catheter/insertion site benign otherwise, NO HEPARIN, confirmed with Dr. Rubi only locking off catheter with NS due to chronically low platelets, CVC working well without heparin locking
[2019-05-03] MEDS: Acetaminophen 325 MG Tablet 650 MG PO (18:45)
--- NOTE | 2019-05-03 22:37 | NURSING ---
pts free style blood sugar check 222. ok to use per nursing comm -dr gomez
[2019-05-03] MEDS: Atorvastatin Calcium 40 MG Tablet PO (22:39)
[2019-05-03] MEDS: Aspirin 81 MG TAB.CHEW PO (22:39)
[2019-05-03] MEDS: MELATONIN 3 MG TABLET PO (22:39)
[2019-05-03] MEDS: Glucerna Shake 120 ML LIQUID PO (22:43)
[2019-05-04] VITALS (7 sets, daily range): BP systolic 122–131; BP diastolic 45–61; PULSE 70–99; RESP 18–20; TEMP 36.6–37; O2SAT 96–99
[2019-05-04] MEDS: Ipratropium/Albuterol Sulfate 3 ML AMPUL.NEB INHALATION ×2 (04:14→07:03)
[2019-05-04] MEDS: Levothyroxine 137 MCG Tablet PO (05:38)
[2019-05-04 06:07] LABS: Absolute Lymphocyte Count 0.68 X10^3/uL (0.83-4.51); Absolute Neutrophil Count 2.8 X10^3/uL (2.0-7.7); Basophil# 0.03 X10^3/uL; Basophil% 0.7 % (0-1); Eosinophil# 0.21 X10^3/uL; Eosinophils% 5.2 % (0-5); Hematocrit 27.3 % (37-47); Hemoglobin 8.8 g/dL (12.0-15.0); Lymphocyte # 0.68 X10^3/ul (4.0); Lymphocyte % 16.9 % (19-41); Mean Corp Hgb Conc 32.2 g/dL (32-36); Mean Corpuscular Hgb 34.8 pg (27.0-32.0); Mean Corpuscular Volume 107.9 fL (81-99); Mean Platelet Vol. 10.6 fl (6.2-12.0); Monocyte# 0.29 X10^3/uL; Monocyte% 7.2 % (0-10); NRBC Flagged by Analyzer 0 % (0-5); Neutrophil # 2.79 X10^3/uL (2.7-7.7); Neutrophil % 69.3 % (47-70); POSITIVE COUNT YES; Platelet Count 65 K/mm3 (150-450); RBC Distribution Width SD 58.4 fl (35.1-43.9); Red Blood Count 2.53 M/mm3 (4.2-5.4)
[2019-05-04 06:12] LABS: Anion Gap 6 (5-15); BUN 32 mg/dL (7-18); BUN/Creat Ratio 12.5 RATIO (10-20); Calcium,Total 8.3 mg/dL (8.5-10.1); Chloride 103 mmol/L (98-107); Creatinine, Serum 2.56 mg/dL (0.55-1.02); EST Glomerular Filtration Rate 20 mL/min (>60); Est Glom Filt Rate - Afr Amer 24 mL/min (>60); Estimated Creatinine Clearance 18.16 ml/min; Glucose 203 mg/dL (74-106); Sodium Level 137 mmol/L (136-145)
[2019-05-04] MEDS: Insulin Lispro 100 UNIT/ML INSULN.PEN SC ×2 (08:36→11:05)
[2019-05-04] MEDS: Insulin Lispro 100 UNIT/ML INSULN.PEN 10 UNIT SC ×2 (08:36→11:05)
[2019-05-04] MEDS: Clopidogrel Bisulfate 75 MG Tablet PO (08:37)
[2019-05-04] MEDS: Ramipril 2.5 MG Capsule PO (08:37)
[2019-05-04] MEDS: Furosemide 40 MG Tablet PO (08:37)
[2019-05-04] MEDS: Gabapentin 600 MG Tablet PO ×2 (08:37→12:43)
[2019-05-04] MEDS: hydrALAZINE 10 MG Tablet PO (08:38)
[2019-05-04] MEDS: Carvedilol 6.25 MG Tablet PO (08:38)
[2019-05-04] MEDS: Ceftriaxone 1 GM/50 ML BAG IV (09:11)
[2019-05-04 09:19] LABS: Hepatitis B Surface Antigen Non-Reactive (Nonreactive)
--- NOTE | 2019-05-04 10:20 | DCINST_ITS ---
- Discharge Diagnoses Current Active Problems: Current Active and Chronic Problems Diabetes (Acute) CAP (community acquired pneumonia) (Acute) Hyperglycemia (Acute) ESRD (end stage renal disease) on dialysis (Acute) You will use the following diet at home:: Cardiac Your food should be the consistency of: Regular Your liquids should be the consistency of: Regular/Thin Discharge Activity: Return to Normal Activity Call your doctor if you observe: Fever of 101 or Higher, Shortness of breath, Dizziness, Fainting spells, Swelling in the ankles, Chest pain, Increased palpitations (irregular heartbeat) Allergies/Adverse Reactions: Allergies esomeprazole [From Nexium] Allergy (Verified 05/02/19 00:16) Upset Stomach Iodinated Contrast Media [CONTRASTS] Allergy (Verified 05/02/19 00:16) Other Medications to take at Discharge Aspirin 81 mg PO DAILY 04/06/18 Atorvastatin Calcium [Lipitor] 40 mg PO QHS 04/06/18 Carvedilol [Coreg ([facility]eta [place])] 6.25 mg PO BID 04/06/18 Clopidogrel Bisulfate [Plavix] 75 mg PO DAILY 04/06/18 Gabapentin [Neurontin] 600 mg PO TIDCM 04/06/18 Insulin Aspart [Novolog Flexpen] 0 units SC TIDCM 04/06/18 Levothyroxine [Synthroid] 137 mcg PO DAILY 04/06/18 Metolazone [Zaroxolyn] 5 mg PO DAILY 04/06/18 Nitroglycerin (INPATIENT USE) [Nitrostat] 0.4 mg SUBLINGUAL Q5M PRN 04/06/18 Ramipril [Altace] 2.5 mg PO DAILY 04/06/18 Calcium Acetate 667 mg TIDCM 05/02/19 Furosemide 40 mg BID 05/02/19 Insulin Degludec [Tresiba] 24 units SQ DAILY 05/02/19 hydrALAZINE [Apresoline] 10 mg BID 05/02/19 Azithromycin 500 mg PO DAILY #2 tab 05/04/19 Cefdinir [Omnicef [equiv]] 300 mg PO Q12H #8 cap 05/04/19 The following prescriptions were given: Azithromycin 500 mg PO DAILY #2 tab Transmission Status: Pending to [facility] Cefdinir [Omnicef [equiv]] 300 mg PO Q12H #8 cap Transmission Status: Pending to [facility] Primary Care Physician: Mary Ramirez, [Primary Care Provider] - Please follow up with your Primary Care Physician in: 3-5 days Test Results: Test results from this visit will be discussed in further detail at your follow- up appointment, if applicable.
--- NOTE | 2019-05-04 10:22 | PCM.DC.SUM ---
Discharge Date and Diagnosis - Problem List Patient Problems: Active and Suspected Problems Diabetes (Acute) CAP (community acquired pneumonia) (Acute) Hyperglycemia (Acute) ESRD (end stage renal disease) on dialysis (Acute) Date of Admission: 05/02/19 Date of Discharge: 05/04/19 - Primary Discharge Diagnosis Active and Suspected Problems Diabetes (Acute) CAP (community acquired pneumonia) (Acute) Hyperglycemia (Acute) ESRD (end stage renal disease) on dialysis (Acute) Hospital Course and Treatment Imaging Results: None Consults: Nephrology Operations: None Procedures: Dialysis Summary of Care Provided: Per HPI: The patient is a 68 year old patient with significant past medical history of diabetes, kidney disease presents to the emergency room in [place] with a confused state per her . Initially he described to be short of breath and her initial pulse ox was 88% on room air at that hospital. The patient does have chest discomfort on her right lateral side status post fall remotely, but this is not acute. Currently she states she is feeling much better and less confused. Initial laboratory studies showed white blood cell count of 6.5, hemoglobin 11.0, hematocrit 34.6, platelets 95, blood sugar was greater than 750, sodium 131, potassium 5.3, chloride 95, bicarb 24, BUN 34, creatinine 3.1 (patient had dialysis earlier today) lactic acid level was 2.9 the patient has a received rehydration at the [place] ER and a total of 20 units of insulin and her blood sugar is now 580 upon arrival to our facility. EKG is a paced rhythm. Chest x-ray was positive for pneumonia. She will be treated for community-acquired pneumonia and her diabetes managed. Hospital Course: 1. Community-acquired [id number]-old female with history of diabetes and end-stage renal disease presented to [facility] with shortness of breath and confusion. Initially she was 88% on room air there and because she had dialysis she had the choice of being transferred either to [place] or [facility]. She chose [facility] [place] was transferred here after being started on oxygen and was given a dose of antibiotics at the outside hospital. On presentation to this facility cultures were not done because she had already received antibiotics, and she had a chest x-ray at the outside hospital which was positive for pneumonia and she was started on azithromycin and Rocephin for community-acquired pneumonia. She did improve especially after her episode of dialysis. She is no longer short of breath, denies any significant chest pain, and does not require any oxygen. I discussed with her the plan of discharge today on antibiotics and that she will need to follow-up with her primary care physician. She expressed understanding of the risks and benefits of going home and would like to proceed with discharge today. 2. Her other medical diagnoses were evaluated and her home medications were continued where appropriate Patient Problems: Active and Suspected Problems Diabetes (Acute) CAP (community acquired pneumonia) (Acute) Hyperglycemia (Acute) ESRD (end stage renal disease) on dialysis (Acute) - Physical Exam Vitals/I&O's: Vital Signs Temp Pulse Resp BP Pulse Ox 98.2 F 70 20 H 125/45 H 98 05/04/19 08:31 05/04/19 08:38 05/04/19 08:31 05/04/19 08:31 05/04/19 08:31 Oxygen Flow Rate (L/min) 2 Oxygen Delivery Method Room Air Weight: 227 lb 1.218 oz Body Mass Index (BMI) 38.2 Intake and Output for Last 24 Hours 05/02/19 05/03/19 05/04/19 23:59 23:59 23:59 Intake Total 2575.83 / 2575.83 1545.00 / 1545.00 50 / 50 Output Total 1200 / 1200 Balance 2575.83 / 2575.83 345.00 / 345.00 50 / 50 General: Alert, Oriented x3, Cooperative, No apparent distress HEENT: Atraumatic, PERRLA, EOMI, Normocephalic Oral: Dry Mucosa Neck: Supple, No JVD Lungs: Clear to auscultation, Normal air movement, No rhonchi, No wheeze, No rales, Diminished Cardiovascular: Regular rate, Regular Rhythm, Normal S1, Normal S2, No murmurs Abdomen: Soft, Non Tender, Non-Distended, No Hepato-splenomegaly Extremities: No edema, Capillary Refill Less than 3 Seconds Skin: No rashes, No breakdown Neurological: Neuro grossly intact, Sensory exam intact to light touch and pain Psych/Mental Status: Normal Affect, Appropriate Laboratory Results 05/04/19 05:38: Hep Bs Antigen Non-Reactive 05/04/19 05:38: WBC 4.0 L, RBC 2.53 L, Hgb 8.8 L, Hct 27.3 L, MCV 107.9 H, MCH 34.8 H, MCHC 32.2, RDW Std Deviation 58.4 H, RDW Coeff of Mary 15.0 H, Plt Count 65 L, MPV 10.6, Immature Gran % (Auto) 0.700, Neut % (Auto) 69.3, Lymph % (Auto) 16.9 L, [place] % (Auto) 7.2, Eos % (Auto) 5.2 H, Baso % (Auto) 0.7, Absolute Neuts (auto) 2.8, Absolute Lymphs (auto) 0.68 L, Nucleated RBC % 0 05/04/19 05:38: Sodium 137, Potassium 4.0, Chloride 103, Carbon Dioxide 28.0, Anion Gap 6, BUN 32 H, Creatinine 2.56 H, Estim Creat Clear Calc 18.16, Est GFR (MDRD) Af Amer 24 L, Est GFR (MDRD) Non-Af 20 L, BUN/Creatinine Ratio 12.5, Glucose 203 H, Calcium 8.3 L Current Medications Acetaminophen (Tylenol) 650 mg PO Q6H PRN PRN PRN Reason: Pain Score 1-10/10/FEVER Last Admin: 05/03/19 18:45 Dose: 650 mg Documented by: Albuterol/Ipratropium (Duoneb) 3 ml INHALATION Q6HWA.RT [facility] Last Admin: 05/04/19 07:03 Dose: 3 ml Documented by: Aspirin (Aspirin, Baby) 81 mg PO QHS [facility] Last Admin: 05/03/19 22:39 Dose: 81 mg Documented by: Atorvastatin Calcium (Lipitor) 40 mg PO QHS [facility] Last Admin: 05/03/19 22:39 Dose: 40 mg Documented by: Carvedilol (Coreg) 6.25 mg PO BID [facility] Last Admin: 05/04/19 08:38 Dose: 6.25 mg Documented by: Clopidogrel Bisulfate (Plavix) 75 mg PO DAILY [facility] Last Admin: 05/04/19 08:37 Dose: 75 mg Documented by: Furosemide (Lasix) 40 mg PO SuTuThSa@1000,1600 [facility] Last Admin: 05/04/19 08:37 Dose: 40 mg Documented by: Gabapentin (Neurontin) 600 mg PO TIDCM [facility] Last Admin: 05/04/19 08:37 Dose: 600 mg Documented by: Glucagon () 1 mg IM .X1 PRN PRN Reason: Hypoglycemia Hydralazine HCl (Apresoline) 10 mg PO BID [facility] Last Admin: 05/04/19 08:38 Dose: 10 mg Documented by: Sodium Chloride () 250 mls @ 15 mls/hr IV .[id number] PRN PRN Reason: Saline Flush Sodium Chloride () 250 mls @ 15 mls/hr IV .[id number] PRN PRN Reason: Additional IVPB Infusion Ceftriaxone Sodium (Rocephin) 1 gm in 50 mls @ 100 mls/hr IV Q24 [facility] Last Infusion: 05/04/19 09:45 Dose: Infused Documented by: Azithromycin 500 mg/ Dextrose 255 mls @ 250 mls/hr IV Q24 [facility] Last Admin: 05/04/19 10:18 Dose: 175 mls/hr Documented by: Dextrose (Dextrose 10%-Water) 250 mls @ 999 mls/hr IV .Q16M PRN; Protocol PRN Reason: HYPOGLYCEMIA Insulin Glargine (Lantus ([facility])) 24 units SC DAILY [facility] Last Admin: 05/04/19 09:13 Dose: 24 units Documented by: Insulin Human Lispro (Humalog Kwikpen ([facility])) 0 unit SC ACHS [facility]; Protocol Last Admin: 05/04/19 08:36 Dose: 2 units Documented by: Insulin Human Lispro (Humalog Kwikpen ([facility])) 10 unit SC TIDAC [facility] Last Admin: 05/04/19 08:36 Dose: 10 units Documented by: Levothyroxine Sodium (Synthroid) 137 mcg PO DAILY@0600 [facility] Last Admin: 05/04/19 05:38 Dose: 137 mcg Documented by: Melatonin (Melatonin) 3 mg PO QHS PRN PRN Reason: INSOMNIA Last Admin: 05/03/19 22:39 Dose: 3 mg Documented by: Metolazone (Zaroxolyn) 5 mg PO DAILY [facility] Last Admin: 05/03/19 13:53 Dose: 5 mg Documented by: Nitroglycerin (Nitrostat) 0.4 mg SUBLINGUAL Q5M PRN PRN Reason: CHEST Nutritional Formula (Lactose Free) (Glucerna Shake) 120 ml PO 4X/DAY [facility] Last Admin: 05/04/19 08:39 Dose: Not Given Documented by: Ramipril (Altace) 2.5 mg PO DAILY [facility] Last Admin: 05/04/19 08:37 Dose: 2.5 mg Documented by: Sodium Chloride () 10 - 40 ml IV UD PRN PRN Reason: SALINE FLUSH Last Admin: 05/02/19 13:50 Dose: 10 ml Documented by: Discharge Activity: Return to Normal Activity Call your doctor if you observe: Fever of 101 or Higher, Shortness of breath, Dizziness, Fainting spells, Swelling in the ankles, Chest pain, Increased palpitations (irregular heartbeat) Home Medications: Medications to take at Discharge Aspirin 81 mg PO DAILY 04/06/18 Atorvastatin Calcium [Lipitor] 40 mg PO QHS 04/06/18 Carvedilol [Coreg ([facility] [place])] 6.25 mg PO BID 04/06/18 Clopidogrel Bisulfate [Plavix] 75 mg PO DAILY 04/06/18 Gabapentin [Neurontin] 600 mg PO TIDCM 04/06/18 Insulin Aspart [Novolog Flexpen] 0 units SC TIDCM 04/06/18 Levothyroxine [Synthroid] 137 mcg PO DAILY 04/06/18 Metolazone [Zaroxolyn] 5 mg PO DAILY 04/06/18 Nitroglycerin (INPATIENT USE) [Nitrostat] 0.4 mg SUBLINGUAL Q5M PRN 04/06/18 Ramipril [Altace] 2.5 mg PO DAILY 04/06/18 Calcium Acetate 667 mg TIDCM 05/02/19 Furosemide 40 mg BID 05/02/19 Insulin Degludec [Tresiba] 24 units SQ DAILY 05/02/19 hydrALAZINE [Apresoline] 10 mg BID 05/02/19 Azithromycin 500 mg PO DAILY #2 tab 05/04/19 Cefdinir [Omnicef [equiv]] 300 mg PO Q12H #8 cap 05/04/19 Following Prescrptions Were Given to Patient: Azithromycin 500 mg PO DAILY #2 tab Transmission Status: Pending to [facility] Cefdinir [Omnicef [equiv]] 300 mg PO Q12H #8 cap Transmission Status: Pending to [facility] Primary Care Physician: Mary Ramirez DO [Primary Care Provider] - Please follow up with your Primary Care Physician in: 3-5 days Disposition: Home Minutes spent on discharge:: 35 Patient Condition:: Stable Medical Necessity - Tobacco Use Smoking Status: Former smoker Meaningful Use Info Meaningful Use Diagnoses (Choose all that apply): None applicable Code Visit Inpatient E&M: 70779 Disch Hosp
[2019-05-04] MEDS: metOLazone 5 MG Tablet PO (11:09)
== END 2019-05-04 13:21 | disposition home or self-care (01) | DRG 193 ==
PROVIDERS: Internal Medicine Nephrology; Admitting Provider Family Medicine; Visit Provider Family Medicine
DX: J18.9 Pneumonia, unspecified organism (principal); N18.6 End stage renal disease; I12.0 Hypertensive chronic kidney disease with stage 5 chronic kidney disease or end stage renal disease; T82.858A Stenosis of other vascular prosthetic devices, implants and grafts, initial encounter; E11.22 Type 2 diabetes mellitus with diabetic chronic kidney disease; D63.1 Anemia in chronic kidney disease; E11.51 Type 2 diabetes mellitus with diabetic peripheral angiopathy without gangrene; E11.65 Type 2 diabetes mellitus with hyperglycemia; E03.9 Hypothyroidism, unspecified; Z99.2 Dependence on renal dialysis; Z79.82 Long term (current) use of aspirin; Z79.4 Long term (current) use of insulin; Z79.890 Hormone replacement therapy; Z79.02 Long term (current) use of antithrombotics/antiplatelets; Z87.891 Personal history of nicotine dependence
CPT/HCPCS: 36415; 80048; 82607; 82746; 82962; 83605; 85025; 87340; 90937; 93990; 94640; J7030; A4216; G0257

== ENCOUNTER → 2019-06-05 12:24 | Outpatient (CLI) | payer MEDICARE, OTHER, SELFPAY ==
--- NOTE | 2019-06-05 12:28 | AVDS_ITS ---
Reason For Study: ESRD RIGHT Inflow artery 241.5/108.2 cm/sec Inflow artery 775 ml/min Prox Anastomosis 342.8/146.5 cm/sec. Prox Anastomosis 978.3 ml/min Prox Graft 675.9/290.9 cm/sec Prox Graft 2803 ml/min Mid Graft 169.1/59.2 cm/sec. Mid Graft 1810 ml/min. Distal Graft 84.1/35.8 cm/sec. Distal Graft 515.6 ml/min. Outflow 132.3/48.9 cm/sec. Outflow 449.6 ml/min. Interpretation Summary 1. Mild stenosis proximal at the bend past anastamosis at 3.1mm but otherwise good flow and 4.1 to 11mm. Flow 775. Ordering Physician: Rojelio Chowdhury Referring Physician: Mary Ramirez Performed By: Nette Mckinney RVT
== END ==
PROVIDERS: Referring Provider Surgery Vascular Surgery; Visit Provider Surgery Vascular Surgery
DX: T82.858A Stenosis of other vascular prosthetic devices, implants and grafts, initial encounter (principal); N18.6 End stage renal disease
CPT/HCPCS: 93990

== ENCOUNTER 2019-06-06 19:34 | Inpatient (IN) | payer MEDICARE, OTHER, SELFPAY ==
[2019-06-06] VITALS (9 sets, daily range): BP systolic 125–143; BP diastolic 42–90; PULSE 70–72; RESP 16–20; TEMP 36.5–37; O2SAT 94–99; BMI 38.2; BMI 38.0
--- NOTE | 2019-06-06 19:40 | EKG12_ITS ---
Test Reason : CP Blood Pressure : / mmHG Vent. Rate : 070 BPM Atrial Rate : 070 BPM P-R Int : 266 ms QRS Dur : 162 ms QT Int : 474 ms P-R-T Axes : 000 -78 124 degrees QTc Int : 511 ms AV dual-paced rhythm with prolonged AV conduction Biventricular pacemaker detected Abnormal ECG Confirmed by NIGEL ERICKSON ([id number]), mapping editor CASSIDY VALENCIA ([id number] on 06/08/2019 3:07:58 PM Referred By: PROSPER Confirmed By:NIGEL ERICKSON
--- NOTE | 2019-06-06 19:41 | ED.RN ---
NO OLD EKGS IN MUSE
--- NOTE | 2019-06-06 19:50 | RAD_ITS ---
STUDY: X-RAY CHEST REASON FOR EXAM: Female, 68 years old. CONSTANT CHEST HEAVINESS AND SOB SINCE YESTERDAY. DIALYSIS YESTERDAY TECHNIQUE: Single AP portable view of the chest. COMPARISON: None. FINDINGS: Dialysis catheter terminates in the mid SVC. Atelectasis or infiltrate in the lower right lung with small effusion. Mild congestion and interstitial edema. Moderate cardiomegaly, status post CABG, with pacer leads in the right atrium, right ventricle, and coronary sinus. RAD/Chest 1 View (Portable) IMPRESSION: Atelectasis or infiltrate in the lower right lung with small effusion. Electronically Signed: Trip Quesada MD at 20:08 EST , Service support ,
--- NOTE | 2019-06-06 20:00 | ED.DCSUM_ITS ---
History of Present Illness Chief Complaint: Chest Pain Informant: Patient Onset: Yesterday Context: Gradual Onset Timing: Continuous Current Severity: Moderate Maximum Severity: Moderate Narrative: The patient is a 68-year-old female with history of hypertension, hyperlipidemia, diabetes, status post prior cardiac stenting with pacemaker defibrillator who is on dialysis the presents to the emergency department chest pain. Patient states she had her dialysis treatment yesterday. She states that over the evening she began to have substernal heaviness that went to her neck. She states that she tried sublingual nitro at home with no relief relief. She states this feels very similar to when she had a prior [place]. She has not had a recent heart cath because she started dialysis about 6 months ago. She was recently admitted for pneumonia and elevated blood sugar. She denies cough. She does mention dyspnea, but states is not worse than usual. She has been com pliant with her medications. Prior similar symptoms: Yes Recent Illness/Hospitalization: No Past Medical History - Allergies and Home Meds Allergies/Adverse Reactions: Allergies esomeprazole [From Nexium] Allergy (Verified 06/06/19 19:34) Upset Stomach Iodinated Contrast Media [CONTRASTS] Allergy (Verified 06/06/19 19:34) Other Primary Care Physician: Mary Ramirez DO [Primary Care Provider] - Prior records reviewed: Yes Past Medical History: - - Diabetes high, hypertension, hypercholesterolemia, end-stage renal disease Surgical History: angioplasty Smoking Status: Former smoker - Family History Maternal Family History: Reports: No pertinent history Review of Systems General: Denies: Chills, Fever, Sweats Eyes: Denies: Visual changes - bilaterally, Diplopia ENT: Denies: Rhinorrhea, Sore throat Cardiovascular: Reports: Chest pain. Denies: Palpitations Respiratory: Reports: Dyspnea. Denies: Cough, Dyspnea on exertion Gastrointestinal: Denies: Abdominal pain, Nausea, Vomiting, Diarrhea, Melena, Hematochezia Genitourinary: Denies: Dysuria, Hematuria, Frequency Musculoskeletal: Denies: Back pain, Extremity Pain Skin: Denies: Rash, Wounds Neurological: Denies: Headache, Weakness, Numbness Physical Exam Vital Signs/Narrative: Vital Signs Temp Pulse Resp BP Pulse Ox 06/06/19 19:36 97.7 F L 70 20 H 143/90 H 99 Inital Vital Signs reviewed: Yes General: Well nourished, Well developed, No Acute Distress Head: Normocephalic, Atraumatic Eyes: Perrl, EOMI ENT: Moist mucous membranes, No rhinorrhea Neck: Supple, Nontender Cardiovascular: Regular rate, Regular rhythm, No murmurs Respiratory: No distress, CTA bilaterally, Chest nontender Abdomen: Soft, Nontender, Nondistended, Normal bowel sounds Back: Nontender, Normal Inspection Extremities: Nontender, No edema Skin: Normal color, No rash Neurological: Alert, Oriented x3, Cranial nerves II-XII grossly intact, Normal Strength, Normal Sensation Psychological: Normal affect, Normal Mood Diagnostic/Tx/Re-eval Clinical Impression(s) from Imaging Studies Chest X-Ray 06/06/19 19:50 IMPRESSION: Atelectasis or infiltrate in the lower right lung with small effusion. Electronically Signed: Trip Quesada MD at 20:08 EST , Service support , Abnormal Lab Results 06/06/19 06/06/19 20:15 20:15 WBC 4.7 RBC 2.82 L Hgb 9.6 L Hct 30.7 L MCV 108.9 H MCH 34.0 H MCHC 31.3 L RDW Std Deviation 61.1 H RDW Coeff of Mary 15.2 H Plt Count 76 L MPV 9.9 Immature Gran % (Auto) 0.600 Neut % (Auto) 77.8 H Lymph % (Auto) 11.7 L [place] % (Auto) 5.9 Eos % (Auto) 3.4 Baso % (Auto) 0.6 Absolute Neuts (auto) 3.7 Absolute Lymphs (auto) 0.55 L Nucleated RBC % 0 Differential Comment SCANNED Sodium 137 Potassium 5.1 Chloride 104 Carbon Dioxide 28.0 Anion Gap 5 BUN 46 H Creatinine 3.08 H Estim Creat Clear Calc 15.10 Est GFR (MDRD) Af Amer 19 L Est GFR (MDRD) Non-Af 16 L BUN/Creatinine Ratio 14.9 Glucose 201 H Calcium 9.0 Troponin I 0.059 H - Rhythm Strip Rhythm Strip: Sinus Rhythm Ectopy: None - EKG Initial EKG Interpretation: Paced Prior: No Prior - Medical Decision Making The patient is a 68-year-old female that presents to the emergency department chest pain. She does have a significant coronary vascular history. EKG was obtained on patient arrival. It was a dual paced rhythm without evidence of acute ischemia. Patient has had prior CABG. She was given nitro with some improvement of her pain. Screening labs demonstrate a chronic anemia. She also has evidence of chronic kidney disease. Her troponin is indeterminant, but in light of her chronic kidney disease, this is hard to acutely evaluate. However, given the patient's medical comorbidities and history I do feel that she would benefit from admission for cardiac rule out. X-ray had questionable infiltrate versus effusion, but the patient has not had cough and was recently treated for pneumonia. My suspicion is that this is likely atelectasis with pleural effusion given her underlying chronic kidney disease. Patient was discussed with the hospitalist. Impression 1. Chest pain with history of coronary vascular disease ED Disposition - Plan for ED Patient: Referrals: Mary Ramirez DO [Primary Care Provider] -
[2019-06-06] MEDS: Aspirin 81 MG TAB.CHEW 324 MG PO (20:07)
[2019-06-06] MEDS: Nitroglycerin SL (ED/IMG/CATH) 0.4 MG TABLET SUBLINGUAL (20:09)
[2019-06-06] MEDS: Ondansetron 4 MG/2 ML Vial IV (20:14)
[2019-06-06 20:28] LABS: Absolute Lymphocyte Count 0.55 X10^3/uL (0.83-4.51); Absolute Neutrophil Count 3.7 X10^3/uL (2.0-7.7); Basophil# 0.03 X10^3/uL; Basophil% 0.6 % (0-1); Eosinophil# 0.16 X10^3/uL; Eosinophils% 3.4 % (0-5); Hematocrit 30.7 % (37-47); Hemoglobin 9.6 g/dL (12.0-15.0); Lymphocyte # 0.55 X10^3/ul (4.0); Lymphocyte % 11.7 % (19-41); Mean Corp Hgb Conc 31.3 g/dL (32-36); Mean Corpuscular Volume 108.9 fL (81-99); Mean Platelet Vol. 9.9 fl (6.2-12.0); Monocyte# 0.28 X10^3/uL; Monocyte% 5.9 % (0-10); NRBC Flagged by Analyzer 0 % (0-5); Neutrophil # 3.67 X10^3/uL (2.7-7.7); Neutrophil % 77.8 % (47-70); POSITIVE COUNT YES; POSITIVE DIFFERENTIAL YES; Platelet Count 76 K/mm3 (150-450); RBC Distribution Width CV 15.2 % (11.6-14.6); RBC Distribution Width SD 61.1 fl (35.1-43.9); Red Blood Count 2.82 M/mm3 (4.2-5.4); White Blood Count 4.7 K/mm3 (4.4-11.0)
[2019-06-06 20:31] LABS: Differential Indicated SCAN CRITERIA MET
[2019-06-06 20:50] LABS: Differential Comment SCANNED
[2019-06-06 20:54] LABS: Anion Gap 5 (5-15); BUN 46 mg/dL (7-18); BUN/Creat Ratio 14.9 RATIO (10-20); Chloride 104 mmol/L (98-107); Creatinine, Serum 3.08 mg/dL (0.55-1.02); EST Glomerular Filtration Rate 16 mL/min (>60); Est Glom Filt Rate - Afr Amer 19 mL/min (>60); Glucose 201 mg/dL (74-106); Potassium 5.1 mmol/L (3.5-5.1); Sodium Level 137 mmol/L (136-145)
[2019-06-06] MEDS: Morphine 4 MG/ML Syringe IV (21:07)
--- NOTE | 2019-06-06 21:41 | HP.PCM_ITS ---
Problem List (1) Chest pain Status: Acute Qualifiers: Chest pain type: unspecified Qualified Code(s): R07.9 - Chest pain, unspecified (2) HTN (hypertension) Status: Chronic Qualifiers: Hypertension type: essential hypertension Qualified Code(s): I10 - Essential (primary) hypertension (3) HLD (hyperlipidemia) Status: Chronic Qualifiers: Hyperlipidemia type: unspecified Qualified Code(s): E78.5 - Hyperlipidemia, unspecified (4) Chronic anemia Status: Chronic (5) Chronic idiopathic thrombocytopenia Status: Chronic (6) CAD (coronary artery disease) Status: Chronic Qualifiers: Coronary Disease-Associated Artery/Lesion type: unspecified vessel or lesion type [place] vs. transplanted heart: unspecified whether absentee-shawnee or transplanted heart Associated angina: angina presence unspecified Qualified Code(s): I25.10 - Atherosclerotic heart disease of absentee-[place]nee coronary artery without angina pectoris (7) Hypothyroidism Status: Chronic Qualifiers: Hypothyroidism type: unspecified Qualified Code(s): E03.9 - Hypothyroidism, unspecified (8) Diabetes Status: Chronic Qualifiers: Diabetes mellitus type: type 2 Diabetes mellitus detention insulin use: with salvage determiner use Diabetes mellitus complication status: with other specified complication Qualified Code(s): E11.69 - Type 2 diabetes mellitus with other specified complication; Z79.4 - superintendent terminal (current) use of insulin (9) ESRD (end stage renal disease) on dialysis Status: Chronic History of Present Illness Date of Admission: 06/06/19 Chief Complaint: Chest heaviness, dyspnea, last HD day prior. The patient is a 68 y/o F w/ PMHx: Chronic thrombocytopenia, Diabetes mellitus type II poorly controlled, Former Tobacco use, AOCD, HTN, HLD, CAD s/p CABG, s/p pacemaker/AICD status, ESRD on HD, Hypothyroidism, Former Tobacco use, Obesity with history of recent discharge on 05/04/2019 following treatment for community-acquired pneumonia who presents to the [facility] ED on 06/06/19 with onset chest pain starting evening prior, substernal with associated dyspnea but no specific diaphoresis, nausea or emesis, described as a pressure and a heaviness rated 10 out of 10 in severity at its worse, waxing and waning, improved recently in the ED with administration of morphine. No specific exacerbating or alleviating factors otherwise. Work-up in the ED included T 97.7, heart rate 70, BP 143/90, respiratory rate 20, 99% on room air, CBC with WC 4.7, hemoglobin 9.6, platelets 76 with no significant shift, BMP with BUN/creatinine 46/3.08, glucose 201, troponin 0.059, chest x-ray with atelectasis right lower lung with small effusion no recent cough thus lower suspicion for infiltrate, EKG with sinus rhythm, paced, no evidence of acute ischemic change. Patient upon evaluation rating chest discomfort at 6-7 out of 10. In the ED patient administered aspirin, morphine, nitroglycerin as well as Zofran therapy. Past Medical History Past Medical History (Chronic Problems): Chronic Problems Diabetes (Chronic) ESRD (end stage renal disease) on dialysis (Chronic) HTN (hypertension) (Chronic) HLD (hyperlipidemia) (Chronic) Chronic anemia (Chronic) Chronic idiopathic thrombocytopenia (Chronic) CAD (coronary artery disease) (Chronic) Hypothyroidism (Chronic) Allergies esomeprazole [From Nexium] Allergy (Verified 06/06/19 19:34) Upset Stomach Iodinated Contrast Media [CONTRASTS] Allergy (Verified 06/06/19 19:34) Other Home Medications: Ambulatory Orders Medication Instructions Recorded Aspirin 81 mg PO DAILY 04/06/18 Atorvastatin Calcium [Lipitor] 40 mg PO QHS 04/06/18 Carvedilol [Coreg (Beta [place])] 6.25 mg PO BID 04/06/18 Clopidogrel Bisulfate [Plavix] 75 mg PO DAILY 04/06/18 Gabapentin [Neurontin] 600 mg PO TIDCM 04/06/18 Insulin Aspart [Novolog Flexpen] 0 units SC ACHS 04/06/18 Levothyroxine [Synthroid] 137 mcg PO DAILY 04/06/18 Metolazone [Zaroxolyn] 5 mg PO DAILY 04/06/18 Nitroglycerin (INPATIENT USE) 0.4 mg SUBLINGUAL Q5M PRN 04/06/18 [Nitrostat] Ramipril [Altace] 2.5 mg PO DAILY 04/06/18 Calcium Acetate 667 mg PO TIDCM 05/02/19 Furosemide 40 mg PO BID 05/02/19 Insulin Degludec [Tresiba] 24 units SQ DAILY 05/02/19 hydrALAZINE [Apresoline] 10 mg BID 05/02/19 Surgical History: angioplasty, - - CABG x4, possible PCI but patient not the best historian, right upper extremity aVF, bilateral cataract surgery, to nsillectomy, cholecystectomy, appendectomy, hysterectomy, left foot surgery, left total knee replacement. Psychiatric History: No pertinent psych hx DE ICER ELEMENT WINDER History: No pertinent DE ICER ELEMENT WINDER history Lives: Spouse/ Significant Other Smoking Status: Former smoker - Patient quit cigarette tobacco usage at least 30 years prior to current presentation. Tobacco Use: Non-smoker Alcohol: None Drugs: None - *Family History Maternal History Items: Diabetes Paternal History Items: High Cholesterol, Heart Disease, Hypertension Review of Systems Constitutional: Reports: Malaise, Weakness, Fatigue. Denies: Chills, Fever, Weight Change HEENT: Denies: Head Aches, Sinus Congestion, Sinus Drainage Cardiovascular: Reports: Chest Pain, Chest Pressure, Edema, Heaviness. Denies: Chest Tightness, Light Headedness, Orthopnea, Palpitations, Syncope Respiratory: Reports: Shortness of Breath. Denies: Cough, Shortness of breath at rest, Shortness of breath upon exertion, Sputum production Gastrointestinal: Denies: Abdominal Pain, Nausea, Vomiting Genitourinary: Denies: Dysuria Musculoskeletal: Reports: Joint Pain. Denies: Joint Tenderness Skin: Reports: Skin Changes, Wounds. Denies: Rash Neurological: Denies: Numbness, Tingling, Focal weakness Psychiatric: Denies: Anxiety, Depression, Homicidal Ideations, Suicidal Ideations Hematologic/ Lymphatic: Reports: Anemia. Denies: Easy Bruising, Easy Bleeding VTE Information - Inpt Only VTE Present on Admission: No VTE Mechan Device Prophylaxis: SCD's VTE Pharm Prophylaxis ordered?: No Reason prophylaxis not ordered:: Medical Contraindication Patient Problems: Active and Suspected Problems Chest pain (Acute) Subjective: Seated upright in ED bed, notes chest discomfort improving with current ED initiated regimens, no distress evident, appears comfortable. Objective: Physical Examination: General: awake, alert, oriented x 3 and cooperative, seated upright in the ED bed in no apparent distress, no obvious distress, notes chest discomfort improving. Skin: normal color, turgor, no icterus, cyanosis, except noted left anterior tirado wound present, no periwound erythema, no purulent aggressive material noted.. HEENT: AT/NC, EOMI, PERRLA, MMM, no carotid bruits or JVD noted. Lungs: Diminished breath sounds bilaterally, greater bilateral bases, moderate effort, no rales, ronchi or wheezing. Heart: Regular rate and rhythm; no gallop, rub audible. Abdomen: soft, obese, NTTP, ND, normal BS, no HSM. Extremities: no cyanosis, clubbing, bilateral lower extremity ankle to distal tirado mild edema, left anterior tirado wound present, no periwound erythema, no purulent aggressive material noted, + thrill RUE AVF. Neurological: patient awake, alert, oriented x 3; cognitive function intact; pupils equally reactive to light and accomodation; cranial nerves II-XII grossly normal, moving all 4 extremities, no focal deficits, strength moderately globally decreased secondary to acute presentation. Psychiatric: affect appears normal, no acute evidence of depressive or anxiety feelings. - Physical Exam Vitals/I&O's: Vital Signs Temp Pulse Resp BP Pulse Ox 97.7 F L 71 17 127/50 H 94 06/06/19 19:36 06/06/19 21:00 06/06/19 21:00 06/06/19 21:00 06/06/19 21:00 Oxygen Delivery Method Room Air Weight: 223 lb Body Mass Index (BMI) 38.2 Laboratory Results 06/06/19 20:15: WBC 4.7, RBC 2.82 L, Hgb 9.6 L, Hct 30.7 L, MCV 108.9 H, MCH 34.0 H, MCHC 31.3 L, RDW Std Deviation 61.1 H, RDW Coeff of Mary 15.2 H, Plt Count 76 L, MPV 9.9, Immature Gran % (Auto) 0.600, Neut % (Auto) 77.8 H, Lymph % (Auto) 11.7 L, [place] % (Auto) 5.9, Eos % (Auto) 3.4, Baso % (Auto) 0.6, Absolute Neuts (auto) 3.7, Absolute Lymphs (auto) 0.55 L, Nucleated RBC % 0, Differential Comment SCANNED 06/06/19 20:15: Sodium 137, Potassium 5.1, Chloride 104, Carbon Dioxide 28.0, Anion Gap 5, BUN 46 H, Creatinine 3.08 H, Estim Creat Clear Calc 15.10, Est GFR (MDRD) Af Amer 19 L, Est GFR (MDRD) Non-Af 16 L, BUN/Creatinine Ratio 14.9, Glucose 201 H, Calcium 9.0, Troponin I 0.059 H Assessment/Plan All Active Problems CAP (community acquired pneumonia) (Acute) Hyperglycemia (Acute) Chest pain (Acute) The patient is a 68 y/o F w/ PMHx: Chronic thrombocytopenia, Diabetes mellitus type II poorly controlled, Former Tobacco use, AOCD, HTN, HLD, CAD s/p CABG, s/p pacemaker/AICD status, ESRD on HD, Hypothyroidism, Former Tobacco use, Obesity with history of recent discharge on 05/04/2019 following treatment for community- acquired pneumonia who presents to the [facility] ED on 06/06/19 with onset chest pain starting evening prior, substernal with associated dyspnea. 1. Chest Pain: EKG in ED with SR/paced without acute evidence of ischemia, chest x-ray with atelectasis right lower lung with small effusion no recent cough thus lower suspicion for infiltrate, initial trop 0.059. Will admit to PCU, place on a monitored bed to assure no acute myocardial infarction with serial cardiac enzymes and EKGs. If cardiac enzymes and repeat EKGs remain unremarkable will pursue cardiac and stress testing. ASA, NG, morphine. Magnesium requested, FLP in AM. 2. CAD: Status post prior CABG x4 and ? PCI, continue aspirin, Plavix, statin, Coreg, ramipril. 3. ESRD: Patient with Wednesday, Wednesday, Wednesday dialysis regimen, continue dialysis regimen, consult her Airport Manager Dr. Rubi. 4. AOCD, Chronic anemia: Patient hemoglobin 9.6, baseline prior noted 8-10, continue to trend. 5. Chronic thrombocytopenia: Admission platelet 76, baseline prior 60-100, appears stable, trend. 6. Diabetes mellitus type II with neuropathy, poorly controlled with frequent hyperglycemia: Hold oral home regimen, continue home insulin regimen, ADA diet until n.p.o. status, accu checks w/ ISS, continue home gabapentin regimen. Reportedly uncontrolled, usual BS 600s, will obtain HgbA1c and request nutrition consultation for education and teaching. 7. Hypertension: Continue home regimen including Coreg, metolazone, ramipril, Lasix, hydralazine, PRN hydralazine. 8. Hyperlipidemia: Continue home statin regimen. AM FLP. 9. Hypothyroidism: Continue home synthroid regimen. 10. Chronic left anterior tirado wound: Small anterior tirado wound, no erythema around the wound, will initiate dressings and wound care therapy. 11. DVT prophylaxis: SCDs, defer chemoprophylaxis given chronic thrombocytopenia. 12. CODE status: Patient HCPJULI is her who is present and living will is is in place. Discussed CODE status at length including difference between FULL code, DNR-CCA and DNR-CC status. Following discussions about the differences in these status, requested full code. Advanced Care Planning Face to Face Time: 16 minutes. Code Visit OBSV E&M: 97210 Initial observation care L3 Procedures: 75910 Advncd Care Plan 30 Min
--- NOTE | 2019-06-06 22:37 | EKG12_ITS ---
Test Reason : CP ADMIT Blood Pressure : / mmHG Vent. Rate : 070 BPM Atrial Rate : 070 BPM P-R Int : 274 ms QRS Dur : 154 ms QT Int : 450 ms P-R-T Axes : 077 -62 126 degrees QTc Int : 486 ms AV dual-paced rhythm with prolonged AV conduction Biventricular pacemaker detected Abnormal ECG No previous ECGs available Confirmed by NIGEL ERICKSON ([id number]), photo editor DEVON HURT ([id number]) on 06/09/2019 1:29:03 PM Referred By: AMIE Confirmed By:NIGEL ERICKSON
[2019-06-06 23:03] LABS: Magnesium 2.3 mg/dL (1.6-2.6)
[2019-06-06 23:26] LABS: Hemoglobin A1c 7.2 % (4.2-6.3)
[2019-06-06] MEDS: Atorvastatin Calcium 40 MG Tablet PO (23:45)
[2019-06-06] MEDS: Carvedilol 6.25 MG Tablet PO (23:45)
[2019-06-06] MEDS: Furosemide 40 MG Tablet PO (23:45)
[2019-06-06] MEDS: hydrALAZINE 10 MG Tablet PO (23:45)
[2019-06-06 23:56] LABS: Bedside Glucose 159 mg/dL (70-110)
[2019-06-07] VITALS (14 sets, daily range): BP systolic 106–125; BP diastolic 34–56; PULSE 69–75; RESP 14–19; TEMP 36.3–37; O2SAT 92–99
[2019-06-07 03:20] LABS: Absolute Lymphocyte Count 0.72 X10^3/uL (0.83-4.51); Absolute Neutrophil Count 2.9 X10^3/uL (2.0-7.7); Basophil# 0.03 X10^3/uL; Basophil% 0.7 % (0-1); Eosinophil# 0.21 X10^3/uL; Eosinophils% 5.1 % (0-5); Hematocrit 28.7 % (37-47); Hemoglobin 8.9 g/dL (12.0-15.0); Lymphocyte # 0.72 X10^3/ul (4.0); Lymphocyte % 17.4 % (19-41); Mean Corpuscular Hgb 34.4 pg (27.0-32.0); Mean Corpuscular Volume 110.8 fL (81-99); Mean Platelet Vol. 10.7 fl (6.2-12.0); Monocyte# 0.24 X10^3/uL; Monocyte% 5.8 % (0-10); NRBC Flagged by Analyzer 0 % (0-5); Neutrophil # 2.92 X10^3/uL (2.7-7.7); Neutrophil % 70.8 % (47-70); POSITIVE COUNT YES; Platelet Count 73 K/mm3 (150-450); RBC Distribution Width CV 15.2 % (11.6-14.6); RBC Distribution Width SD 61.1 fl (35.1-43.9); Red Blood Count 2.59 M/mm3 (4.2-5.4); White Blood Count 4.1 K/mm3 (4.4-11.0)
[2019-06-07 03:32] LABS: Differential Indicated SCAN CRITERIA MET
[2019-06-07 03:46] LABS: Anion Gap 6 (5-15); BUN 46 mg/dL (7-18); Calcium,Total 8.7 mg/dL (8.5-10.1); Chloride 103 mmol/L (98-107); Cholesterol 96 mg/dL (200); Creatinine, Serum 3.06 mg/dL (0.55-1.02); EST Glomerular Filtration Rate 16 mL/min (>60); Est Glom Filt Rate - Afr Amer 20 mL/min (>60); Estimated Creatinine Clearance 15.19 ml/min; Glucose 176 mg/dL (74-106); High Density Lipoprotein 34 mg/dL; Sodium Level 138 mmol/L (136-145); Triglycerides 119 mg/dL; Very Low Density Lipoprotein 24 mg/dL (5-40)
[2019-06-07 03:49] LABS: Platelet Estimate MOD DEC (ADEQ); Red Cell Morphology NORM C+C NORMAL (NORM C&C)
[2019-06-07] MEDS: Morphine 4 MG/ML Syringe IV (04:51)
--- NOTE | 2019-06-07 05:55 | EKG12_ITS ---
Test Reason : AM Blood Pressure : / mmHG Vent. Rate : 070 BPM Atrial Rate : 070 BPM P-R Int : 274 ms QRS Dur : 158 ms QT Int : 462 ms P-R-T Axes : 028 -70 116 degrees QTc Int : 498 ms AV dual-paced rhythm with prolonged AV conduction Biventricular pacemaker detected Abnormal ECG When compared with ECG of 06-JUN-2019 22:45, MANUAL COMPARISON REQUIRED, DATA IS UNCONFIRMED Confirmed by NIGEL ERICKSON ([id number]), online content editor DEVON HURT ([id number]) on 06/09/2019 1:32:45 PM Referred By: AMIE Confirmed By:NIGEL ERICKSON
[2019-06-07] MEDS: Ramipril 2.5 MG Capsule PO (06:12)
[2019-06-07] MEDS: Clopidogrel Bisulfate 75 MG Tablet PO (06:12)
[2019-06-07] MEDS: Levothyroxine 137 MCG Tablet PO (06:13)
[2019-06-07 07:01] LABS: Bedside Glucose 205 mg/dL (70-110)
[2019-06-07] MEDS: Calcium Acetate 667 MG Capsule PO ×2 (10:26→19:36)
[2019-06-07] MEDS: Carvedilol 6.25 MG Tablet PO ×2 (10:26→22:11)
[2019-06-07] MEDS: Furosemide 40 MG Tablet PO ×2 (10:26→19:36)
[2019-06-07] MEDS: metOLazone 5 MG Tablet PO (10:26)
[2019-06-07] MEDS: hydrALAZINE 10 MG Tablet PO ×2 (10:26→22:10)
[2019-06-07] MEDS: Gabapentin 600 MG Tablet PO ×2 (10:26→19:36)
[2019-06-07] MEDS: Aspirin 81 MG TAB.CHEW PO (10:29)
[2019-06-07] MEDS: Insulin Lispro 100 UNIT/ML INSULN.PEN SC ×2 (11:38→22:11)
[2019-06-07 12:01] LABS: Bedside Glucose 338 mg/dL (70-110)
--- NOTE | 2019-06-07 13:01 | STRESSREP ---
Stress Test Report Date: 06/07/2019 Procedure: Pharmacologic stress nuclear imaging study Indications: Chest pain Consent: Per the patient Procedure: The patient underwent pharmacologic (Regadenoson) evaluation with a peak heart rate of 80 beats per minute (52 %predicted maximal heart rate) and a peak blood pressure of 112/50 mmHg. The baseline ECG demonstrated ventricular paced rhythm. Underlying rhythm appears to be sinus. EKG during lexiscan infusion revealed no significant ischemic changes. EKG post infusion revealed no significant ischemic changes [There were no cardiac dysrhythmias pretest, during pharmacologic infusion, or recovery]. [There was no complaint of chest discomfort during pharmacologic infusion or recovery]. The examination was discontinued secondary to completion of protocol. Impression: 1. Lexiscan stress test test is negative for Lexiscan infusion induced EKG changes of ischemia. 2. Lexiscan stress test test is negative for Lexiscan infusion induced chest pain. 3. Results of the nuclear portion of the test is as below Myocardial perfusion imaging study: Technique: The patient was injected with 15 millicuries of technetium 99m Cardiolite and subsequently rest SPECT Cardiolite nuclear imaging was obtained in the horizontal long, vertical long, and short axis views. The patient underwent pharmacologic (Regadenoson) evaluation. Please see above for details. The patient was injected with 44.6 millicuries of technetium 99m Cardiolite and subsequently stress SPECT Cardiolite nuclear imaging was obtained in the horizontal long, vertical long, and short axis views. A gated Cardiolite study at peak stress was obtained. Interpretation: Rest and stress SPECT Cardiolite nuclear imaging status post realignment, normalization, and attenuation correction demonstrate absent radioisotope uptake in the apex. There is decreased radioisotope uptake in the lateral wall during rest which is slightly worse during stress. These findings are suggestive of prior apical and lateral myocardial infarction with minimal alivia-infarct ischemia. Gated images reveal global hypokinesis, apical akinesis. The reported LVEF is 24 %. Impression: 1. There is evidence of prior apical and lateral myocardial infarction with minimal reversibility in the lateral wall. Mild lateral wall alivia-infarct ischemia cannot be excluded. 2. Estimated ejection fraction is 24%. This note was generated with Sabrixation software. It may contain incorrect words, spelling, and punctuation that were not noted in checking the note before signing.
[2019-06-07 17:06] LABS: Bedside Glucose 136 mg/dL (70-110)
--- NOTE | 2019-06-07 17:38 | PCM.PN.HOSP ---
Patient Problems: Active and Suspected Problems Chest pain (Acute) Subjective: Feels better today, still has little bit of chest pressure though not what it was like yesterday. She is also breathing easier. Vitals/I&O's: Vital Signs Temp Pulse Resp BP Pulse Ox 97.6 F L 75 18 122/51 H 99 06/07/19 16:00 06/07/19 16:00 06/07/19 16:00 06/07/19 16:00 06/07/19 16:00 Oxygen Flow Rate (L/min) 2 Oxygen Delivery Method Nasal Cannula Weight: 221 lb 9.033 oz Body Mass Index (BMI) 38.0 Intake and Output for Last 24 Hours 06/05/19 06/06/19 06/07/19 23:59 23:59 23:59 Intake Total 240 / 240 240 / 240 Output Total 300 / 300 Balance 240 / 240 -60 / -60 General: Alert, Oriented x3, Cooperative, No apparent distress HEENT: Atraumatic, PERRLA, EOMI, Normocephalic Oral: Moist Mucosa Neck: Supple, No JVD Lungs: Clear to auscultation, Normal air movement, No rhonchi, No wheeze, No rales, Diminished Cardiovascular: Regular rate, Regular Rhythm, Normal S1, Normal S2, No murmurs Abdomen: Soft, Non Tender, Non-Distended, No Hepato-splenomegaly Extremities: Capillary Refill Less than 3 Seconds, Edema - Nonpitting Skin: No rashes, No breakdown Neurological: Neuro grossly intact, Sensory exam intact to light touch and pain Psych/Mental Status: Normal Affect, Appropriate Laboratory Results 06/06/19 20:15: WBC 4.7, RBC 2.82 L, Hgb 9.6 L, Hct 30.7 L, MCV 108.9 H, MCH 34.0 H, MCHC 31.3 L, RDW Std Deviation 61.1 H, RDW Coeff of Mary 15.2 H, Plt Count 76 L, MPV 9.9, Immature Gran % (Auto) 0.600, Neut % (Auto) 77.8 H, Lymph % (Auto) 11.7 L, [place] % (Auto) 5.9, Eos % (Auto) 3.4, Baso % (Auto) 0.6, Absolute Neuts (auto) 3.7, Absolute Lymphs (auto) 0.55 L, Nucleated RBC % 0, Differential Comment SCANNED 06/06/19 20:15: Sodium 137, Potassium 5.1, Chloride 104, Carbon Dioxide 28.0, Anion Gap 5, BUN 46 H, Creatinine 3.08 H, Estim Creat Clear Calc 15.10, Est GFR (MDRD) Af Amer 19 L, Est GFR (MDRD) Non-Af 16 L, BUN/Creatinine Ratio 14.9, Glucose 201 H, Calcium 9.0, Troponin I 0.059 H 06/06/19 20:15: Magnesium 2.3 06/06/19 20:15: Hemoglobin A1c 7.2 H 06/06/19 23:02: Troponin I 0.040 06/06/19 23:42: POC Glucose 159 H 06/07/19 03:00: WBC 4.1 L, RBC 2.59 L, Hgb 8.9 L, Hct 28.7 L, MCV 110.8 H, MCH 34.4 H, MCHC 31.0 L, RDW Std Deviation 61.1 H, RDW Coeff of Mary 15.2 H, Plt Count 73 L, MPV 10.7, Immature Gran % (Auto) 0.200, Neut % (Auto) 70.8 H, Lymph % (Auto) 17.4 L, [place] % (Auto) 5.8, Eos % (Auto) 5.1 H, Baso % (Auto) 0.7, Absolute Neuts (auto) 2.9, Absolute Lymphs (auto) 0.72 L, Nucleated RBC % 0, Differential Comment COMMENT, Platelet Estimate MOD DEC, RBC Morphology NORM C+C 06/07/19 03:00: Sodium 138, Potassium 4.0, Chloride 103, Carbon Dioxide 29.0, Anion Gap 6, BUN 46 H, Creatinine 3.06 H, Estim Creat Clear Calc 15.19, Est GFR (MDRD) Af Amer 20 L, Est GFR (MDRD) Non-Af 16 L, BUN/Creatinine Ratio 15.0, Glucose 176 H, Calcium 8.7, Troponin I 0.035, Triglycerides 119, Cholesterol 96, LDL Cholesterol 38, VLDL Cholesterol 24, HDL Cholesterol 34 L 06/07/19 06:16: POC Glucose 205 H 06/07/19 11:35: POC Glucose 338 H 06/07/19 17:03: POC Glucose 136 H Current Medications Acetaminophen (Tylenol) 650 mg PO Q6H PRN PRN PRN Reason: Pain Score 1-10/Temp > 100.7 F Al Hydroxide/Mg Hydroxide (Mylanta Ii) 30 ml PO Q6H PRN PRN PRN Reason: Gastric Burning Albuterol Sulfate (Ventolin Aerosols) 2.5 mg INHALATION Q2H PRN PRN PRN Reason: SOB/Wheezing Aspirin (Aspirin, Baby) 81 mg PO DAILYCM [facility] Last Admin: 06/07/19 10:29 Dose: 81 mg Documented by: Atorvastatin Calcium (Lipitor) 40 mg PO QHS [facility] Last Admin: 06/06/19 23:45 Dose: 40 mg Documented by: Calcium Acetate (Phoslo Gel Cap) 667 mg PO TIDCM [facility] Last Admin: 06/07/19 10:50 Dose: Not Given Documented by: Carvedilol (Coreg) 6.25 mg PO BID [facility] Last Admin: 06/07/19 10:26 Dose: 6.25 mg Documented by: Clopidogrel Bisulfate (Plavix) 75 mg PO DAILY [facility] Last Admin: 06/07/19 06:12 Dose: 75 mg Documented by: Furosemide (Lasix) 40 mg PO BIDLX [facility] Last Admin: 06/07/19 10:26 Dose: 40 mg Documented by: Gabapentin (Neurontin) 600 mg PO TIDCM [facility] Last Admin: 06/07/19 10:41 Dose: Not Given Documented by: Glucagon () 1 mg IM .X1 PRN PRN Reason: Hypoglycemia Guaifenesin (Robitussin) 20 ml PO Q4H PRN PRN PRN Reason: COUGH Hydralazine HCl (Apresoline) 10 mg PO BID [facility] Last Admin: 06/07/19 10:26 Dose: 10 mg Documented by: Hydralazine HCl (Apresoline Iv) 10 mg IV Q4H PRN PRN PRN Reason: SBP > 160 Dextrose (Dextrose 10%-Water) 250 mls @ 999 mls/hr IV .Q16M PRN; Protocol PRN Reason: HYPOGLYCEMIA Insulin Glargine (Lantus ([facility])) 24 units SC DAILY [facility] Last Admin: 06/07/19 12:01 Dose: 24 units Documented by: Insulin Human Lispro (Humalog Kwikpen ([facility])) 0 unit SC ACHS [facility]; Protocol Last Admin: 06/07/19 17:14 Dose: Not Given Documented by: Levothyroxine Sodium (Synthroid) 137 mcg PO DAILY@0600 [facility] Last Admin: 06/07/19 06:13 Dose: 137 mcg Documented by: Magnesium Hydroxide (Milk Of Magnesia) 30 ml PO DAILY PRN PRN PRN Reason: Constipation Melatonin (Melatonin) 3 mg PO QHS PRN PRN PRN Reason: INSOMNIA Metolazone (Zaroxolyn) 5 mg PO DAILY [facility] Last Admin: 06/07/19 10:26 Dose: 5 mg Documented by: Morphine Sulfate () 4 mg IV Q3H PRN PRN PRN Reason: Pain Score 6-10/10 Last Admin: 06/07/19 04:51 Dose: 4 mg Documented by: Nitroglycerin (Nitrostat) 0.4 mg SUBLINGUAL Q5M PRN PRN Reason: CARDIAC/CHEST PAIN Ondansetron HCl (Zofran) 4 mg IV Q8H PRN PRN PRN Reason: NAUSEA/VOMITING Oxycodone HCl (Oxyir) 5 mg PO Q4H PRN PRN PRN Reason: Pain Score 4-5/10 Prochlorperazine Edisylate (Compazine Iv) 5 mg IV Q4H PRN PRN PRN Reason: Breakthrough Nausea/Vomiting Psyllium Hydrophilic Mucilloid (Metamucil) 1 packet PO DAILY PRN PRN PRN Reason: Constipation Ramipril (Altace) 2.5 mg PO DAILY [facility] Last Admin: 06/07/19 06:12 Dose: 2.5 mg Documented by: Senna/Docusate Sodium (Senokot-S, Jonelle-Colace) 2 tablet PO BID PRN PRN PRN Reason: Constipation Sodium Chloride () 10 - 40 ml IV UD PRN PRN Reason: SALINE FLUSH Throat Lozenges (Cepacol Sore Throat Lozenge) 1 lozenge MUCOUS MEM Q2H PRN PRN PRN Reason: SORE THROAT STROKE Vital Signs/Narrative: Vital Signs Temp Pulse Resp BP Pulse Ox 06/07/19 16:00 97.6 F L 75 18 122/51 H 99 06/07/19 15:00 72 Medical Necessity - Tobacco Use Smoking Status: Former smoker - Patient quit cigarette tobacco usage at least 30 years prior to current presentation. Tobacco Use: Non-smoker Assessment/Plan All Active Problems CAP (community acquired pneumonia) (Acute) Hyperglycemia (Acute) Chest pain (Acute) 1. 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 Ischemic region in the lateral wall of her left ventricle though likely not necessary for an inpatient cardiac cath. I did touch base with her corn detasseler machine operator and he is aware -Troponins were essentially negative and EKG was unremarkable. -We will continue with her home blood pressure and cholesterol medications -Continue with Lasix p.o. twice daily as well as Plavix 2. End-stage renal disease -She is on dialysis Wednesday, she is getting dialysis and unfortunately would not be finished until about 7 PM tonight therefore we will plan to discharge in the morning -Appreciate nephrology's assistance 3. Anemia of chronic disease/chronic thrombocytopenia -Her hemoglobin is 9.6 on admission which is at baseline as are her platelets -We will continue to monitor 4. Hypothyroidism -Stable -Continue with Synthroid 5. DM 2 with neuropathy -We will hold her oral regimen and continue with her home insulin regimen -We will continue with a diabetic diet -Continue with Accu-Cheks AC at bedtime as well as sliding scale insulin -Continue with gabapentin DVT: SCDs Code Visit Inpatient E&M: 99058 Subs Hosp L2
[2019-06-07] MEDS: Acetaminophen 325 MG Tablet 650 MG PO (19:52)
--- NOTE | 2019-06-07 21:28 | DIALYSIS ---
Hemodialysis complete x 3.5 hours. 2700 ml net fluid removed. Patient tolerated well. Right chest wall HD cath flushed and locked with NS. Report given to
[2019-06-07] MEDS: Atorvastatin Calcium 40 MG Tablet PO (22:11)
[2019-06-08] VITALS (7 sets, daily range): BP systolic 115–118; BP diastolic 29–39; PULSE 70; RESP 16–18; TEMP 36.9; O2SAT 90–94
[2019-06-08] MEDS: 0.9% Saline Lock 10 ML Syringe IV (00:28)
[2019-06-08] MEDS: Morphine 4 MG/ML Syringe IV (00:28)
[2019-06-08 01:36] LABS: Bedside Glucose 212 mg/dL (70-110)
[2019-06-08] MEDS: Levothyroxine 137 MCG Tablet PO (05:12)
[2019-06-08] MEDS: Insulin Lispro 100 UNIT/ML INSULN.PEN SC ×2 (06:58→11:33)
[2019-06-08] MEDS: Calcium Acetate 667 MG Capsule PO (10:19)
[2019-06-08] MEDS: metOLazone 5 MG Tablet PO (10:19)
[2019-06-08] MEDS: Ramipril 2.5 MG Capsule PO (10:19)
[2019-06-08] MEDS: hydrALAZINE 10 MG Tablet PO (10:20)
[2019-06-08] MEDS: Carvedilol 6.25 MG Tablet PO (10:20)
[2019-06-08] MEDS: Gabapentin 600 MG Tablet PO (10:20)
[2019-06-08] MEDS: Aspirin 81 MG TAB.CHEW PO (10:20)
[2019-06-08] MEDS: Furosemide 40 MG Tablet PO (10:20)
[2019-06-08] MEDS: Clopidogrel Bisulfate 75 MG Tablet PO (10:20)
--- NOTE | 2019-06-08 10:26 | PCM.DC ---
- Discharge Diagnoses Current Active Problems: Current Active and Chronic Problems Chest pain (Acute) HTN (hypertension) (Chronic) HLD (hyperlipidemia) (Chronic) Chronic anemia (Chronic) Chronic idiopathic thrombocytopenia (Chronic) CAD (coronary artery disease) (Chronic) Hypothyroidism (Chronic) You will use the following diet at home:: Cardiac, Renal (restricted protein/sodium) Your food should be the consistency of: Regular Your liquids should be the consistency of: Regular/Thin Discharge Activity: Return to Normal Activity Call your doctor if you observe: Fever of 101 or Higher, Shortness of breath, Dizziness, Fainting spells, Swelling in the ankles, Chest pain, Increased palpitations (irregular heartbeat) Allergies/Adverse Reactions: Allergies esomeprazole [From Nexium] Allergy (Verified 06/06/19 19:34) Upset Stomach Iodinated Contrast Media [CONTRASTS] Allergy (Verified 06/06/19 19:34) Other Medications to take at Discharge Aspirin 81 mg PO DAILY 04/06/18 Atorvastatin Calcium [Lipitor] 40 mg PO QHS 04/06/18 Carvedilol [Coreg ([place] [place])] 6.25 mg PO BID 04/06/18 Clopidogrel Bisulfate [Plavix] 75 mg PO DAILY 04/06/18 Gabapentin [Neurontin] 600 mg PO TIDCM 04/06/18 Insulin Aspart [Novolog Flexpen] 0 units SC ACHS 04/06/18 Levothyroxine [Synthroid] 137 mcg PO DAILY 04/06/18 Metolazone [Zaroxolyn] 5 mg PO DAILY 04/06/18 Nitroglycerin (INPATIENT USE) [Nitrostat] 0.4 mg SUBLINGUAL Q5M PRN 04/06/18 Ramipril [Altace] 2.5 mg PO DAILY 04/06/18 Calcium Acetate 667 mg PO TIDCM 05/02/19 Furosemide 40 mg PO BID 05/02/19 Insulin Degludec [Tresiba] 24 units SQ DAILY 05/02/19 hydrALAZINE [Apresoline] 10 mg BID 05/02/19 Primary Care Physician: Mary Ramirez DO [Primary Care Provider] - Please follow up with your Primary Care Physician in: 3-5 days Test Results: Test results from this visit will be discussed in further detail at your follow-up appointment, if applicable. Please Follow Up With: Trey Bentley When: 2-4 weeks
--- NOTE | 2019-06-08 10:29 | DS.PCM_ITS ---
Discharge Date and Diagnosis - Problem List Patient Problems: Active and Suspected Problems Chest pain (Acute) Date of Admission: 06/06/19 Date of Discharge: 06/08/19 - Primary Discharge Diagnosis Active and Suspected Problems Chest pain (Acute) - Secondary Discharge Diagnosis Chronic Problems Diabetes (Chronic) ESRD (end stage renal disease) on dialysis (Chronic) HTN (hypertension) (Chronic) HLD (hyperlipidemia) (Chronic) Chronic anemia (Chronic) Chronic idiopathic thrombocytopenia (Chronic) CAD (coronary artery disease) (Chronic) Hypothyroidism (Chronic) Hospital Course and Treatment Imaging Results: CXR: IMPRESSION: Atelectasis or infiltrate in the lower right lung with small effusion. Stress Test Report Date: 06/07/2019 Procedure: Pharmacologic stress nuclear imaging study Indications: Chest pain Consent: Per the patient Procedure: The patient underwent pharmacologic (Regadenoson) evaluation with a peak heart rate of 80 beats per minute (52 %predicted maximal heart rate) and a peak blood pressure of 112/50 mmHg. The baseline ECG demonstrated ventricular paced rhythm. Underlying rhythm appears to be sinus. EKG during lexiscan infusion revealed no significant ischemic changes. EKG post infusion revealed no significant ischemic changes [There were no cardiac dysrhythmias pretest, during pharmacologic infusion, or recovery]. [There was no complaint of chest discomfort during pharmacologic infusion or recovery]. The examination was discontinued secondary to completion of protocol. Impression: 1. Lexiscan stress test test is negative for Lexiscan infusion induced EKG changes of ischemia. 2. Lexiscan stress test test is negative for Lexiscan infusion induced chest pain. 3. Results of the nuclear portion of the test is as below Myocardial perfusion imaging study: Technique: The patient was injected with 15 millicuries of technetium 99m Cardiolite and subsequently rest SPECT Cardiolite nuclear imaging was obtained in the horizontal long, vertical long, and short axis views. The patient underwent pharmacologic (Regadenoson) evaluation. Please see above for details. The patient was injected with 44.6 millicuries of technetium 99m Cardiolite and subsequently stress SPECT Cardiolite nuclear imaging was obtained in the horizontal long, vertical long, and short axis views. A gated Cardiolite study at peak stress was obtained. Interpretation: Rest and stress SPECT Cardiolite nuclear imaging status post realignment, normalization, and attenuation correction demonstrate absent radioisotope uptake in the apex. There is decreased radioisotope uptake in the lateral wall during rest which is slightly worse during stress. These findings are suggestive of prior apical and lateral myocardial infarction with minimal jonelle-infarct ischemia. Gated images reveal global hypokinesis, apical akinesis. The reporte d LVEF is 24 %. Impression: 1. There is evidence of prior apical and lateral myocardial infarction with minimal reversibility in the lateral wall. Mild lateral wall jonelle-infarct ischemia cannot be excluded. 2. Estimated ejection fraction is 24%. Consultations 06/06/19 22:59 Consult: Onc/Wound/client manager large law Routine Comment: Operations: None Procedures: Nuclear stress test Summary of Care Provided: Per HPI: The patient is a 68 y/o F w/ PMHx: Chronic thrombocytopenia, Diabetes mellitus type II poorly controlled, Former Tobacco use, AOCD, HTN, HLD, CAD s/p CABG, s/p pacemaker/AICD status, ESRD on HD, Hypothyroidism, Former Tobacco use, Obesity with history of recent discharge on 05/04/2019 following treatment for community-acquired pneumonia who presents to the [facility] ED on 06/06/19 with onset chest pain starting evening prior, substernal with associated dyspnea but no specific diaphoresis, nausea or emesis, described as a pressure and a heaviness rated 10 out of 10 in severity at its worse, waxing and waning, improved recently in the ED with administration of morphine. No specific exacerbating or alleviating factors otherwise. Work-up in the ED included T 97.7, heart rate 70, BP 143/90, respiratory rate 20, 99% on room air, CBC with WC 4.7, hemoglobin 9.6, platelets 76 with no significant shift, BMP with BUN/creatinine 46/3.08, glucose 201, troponin 0.059, chest x-ray with atelectasis right lower lung with small effusion no recent cough thus lower suspicion for infiltrate, EKG with sinus rhythm, paced, no evidence of acute ischemic change. Patient upon evaluation rating chest discomfort at 6-7 out of 10. In the ED patient administered aspirin, morphine, nitroglycerin as well as Zofran therapy. Hospital Course: 1. Chest pain/CAD status post CABG/HTN/HLD/chronic systolic [id number] female who presented with the sensation of chest pressure to the hospital was found to have a normal troponin x3 as well as a paced EKG. She underwent a stress test which did show an EF of 24% as well as a mild jonelle-ischemic region in the lateral wall of her left ventricle. She was unsure as to which she wanted to have done therefore she asked me to call her personal painter maintenance in [place]. I was able to get a hold of 1 of his partners who felt that since she was feeling better as her chest pain had improved significantly, also her troponins were negative, that she could follow-up with them in [place] in a few weeks and potentially be scheduled for an outpatient heart cath. On their previous echo at their facility her EF was 35% however stress tests have a wider variability in their EF readings. She does have a pacemaker/defibrillator already in place. Since she is feeling better I discussed going home today and she expressed a desire to go home. She also expressed understanding of the risks and benefits of going home and the need to follow-up with her painter maintenance. There were no changes to her home medications, she will continue with her aspirin and Plavix as well as her Lasix and metolazone. Continue with her Coreg as well as Lipitor and ramipril. 2. Her other medical diagnoses were evaluated and her home medications were continued where appropriate Patient Problems: Active and Suspected Problems Chest pain (Acute) - Physical Exam Vitals/I&O's: Vital Signs Temp Pulse Resp BP Pulse Ox 98.4 F 70 18 115/29 L 94 06/08/19 10:04 06/08/19 10:20 06/08/19 10:04 06/08/19 10:06/08/19 10:04 Oxygen Flow Rate (L/min) 2 Oxygen Delivery Method Room Air Weight: 218 lb 14.704 oz Body Mass Index (BMI) 38.0 Intake and Output for Last 24 Hours 06/06/19 06/07/19 06/08/19 23:59 23:59 23:59 Intake Total 240 / 240 670 / 670 0 / 0 Output Total 5800 / 5800 Balance 240 / 240 -5130 / -5130 0 / 0 General: Alert, Oriented x3, Cooperative, No apparent distress HEENT: Atraumatic, PERRLA, EOMI, Normocephalic Oral: Moist Mucosa Neck: Supple, No JVD Lungs: Clear to auscultation, Normal air movement, No rhonchi, No wheeze, No rales, Diminished Cardiovascular: Regular rate, Regular Rhythm, Normal S1, Normal S2, No murmurs Abdomen: Soft, Non Tender, Non-Distended, No Hepato-splenomegaly Extremities: Capillary Refill Less than 3 Seconds, Edema - Nonpitting Skin: No rashes, No breakdown Neurological: Neuro grossly intact, Sensory exam intact to light touch and pain Psych/Mental Status: Normal Affect, Appropriate Laboratory Results 06/07/19 11:35: POC Glucose 338 H 06/07/19 17:03: POC Glucose 136 H 06/07/19 22:01: POC Glucose 212 H Current Medications Acetaminophen (Tylenol) 650 mg PO Q6H PRN PRN PRN Reason: Pain Score 1-10/Temp > 100.7 F Last Admin: 06/07/19 19:52 Dose: 650 mg Documented by: Al Hydroxide/Mg Hydroxide (Mylanta Ii) 30 ml PO Q6H PRN PRN PRN Reason: Gastric Burning Albuterol Sulfate (Ventolin Aerosols) 2.5 mg INHALATION Q2H PRN PRN PRN Reason: SOB/Wheezing Aspirin (Aspirin, Baby) 81 mg PO DAILYCM [facility] Last Admin: 06/08/19 10:20 Dose: 81 mg Documented by: Atorvastatin Calcium (Lipitor) 40 mg PO QHS [facility] Last Admin: 06/07/19 22:11 Dose: 40 mg Documented by: Calcium Acetate (Phoslo Gel Cap) 667 mg PO TIDCM [facility] Last Admin: 06/08/19 10:19 Dose: 667 mg Documented by: Carvedilol (Coreg) 6.25 mg PO BID [facility] Last Admin: 06/08/19 10:20 Dose: 6.25 mg Documented by: Clopidogrel Bisulfate (Plavix) 75 mg PO DAILY [facility] Last Admin: 06/08/19 10:20 Dose: 75 mg Documented by: Furosemide (Lasix) 40 mg PO BIDLX [facility] Last Admin: 06/08/19 10:20 Dose: 40 mg Documented by: Gabapentin (Neurontin) 600 mg PO TIDCM [facility] Last Admin: 06/08/19 10:20 Dose: 600 mg Documented by: Glucagon () 1 mg IM .X1 PRN PRN Reason: Hypoglycemia Guaifenesin (Robitussin) 20 ml PO Q4H PRN PRN PRN Reason: COUGH Hydralazine HCl (Apresoline) 10 mg PO BID [facility] Last Admin: 06/08/19 10:20 Dose: 10 mg Documented by: Hydralazine HCl (Apresoline Iv) 10 mg IV Q4H PRN PRN PRN Reason: SBP > 160 Dextrose (Dextrose 10%-Water) 250 mls @ 999 mls/hr IV .Q16M PRN; Protocol PRN Reason: HYPOGLYCEMIA Insulin Glargine (Lantus ([facility])) 24 units SC DAILY [facility] Last Admin: 06/08/19 10:20 Dose: 24 units Documented by: Insulin Human Lispro (Humalog Kwikpen ([facility])) 0 unit SC ACHS [facility]; Protocol Last Admin: 06/08/19 06:58 Dose: 4 units Documented by: Levothyroxine Sodium (Synthroid) 137 mcg PO DAILY@0600 [facility] Last Admin: 06/08/19 05:12 Dose: 137 mcg Documented by: Magnesium Hydroxide (Milk Of Magnesia) 30 ml PO DAILY PRN PRN PRN Reason: Constipation Melatonin (Melatonin) 3 mg PO QHS PRN PRN PRN Reason: INSOMNIA Metolazone (Zaroxolyn) 5 mg PO DAILY [facility] Last Admin: 06/08/19 10:19 Dose: 5 mg Documented by: Morphine Sulfate () 4 mg IV Q3H PRN PRN PRN Reason: Pain Score 6-10/10 Last Admin: 06/08/19 00:28 Dose: 4 mg Documented by: Nitroglycerin (Nitrostat) 0.4 mg SUBLINGUAL Q5M PRN PRN Reason: CARDIAC/CHEST PAIN Ondansetron HCl (Zofran) 4 mg IV Q8H PRN PRN PRN Reason: NAUSEA/VOMITING Oxycodone HCl (Oxyir) 5 mg PO Q4H PRN PRN PRN Reason: Pain Score 4-5/10 Prochlorperazine Edisylate (Compazine Iv) 5 mg IV Q4H PRN PRN PRN Reason: Breakthrough Nausea/Vomiting Psyllium Hydrophilic Mucilloid (Metamucil) 1 packet PO DAILY PRN PRN PRN Reason: Constipation Ramipril (Altace) 2.5 mg PO DAILY [facility] Last Admin: 06/08/19 10:19 Dose: 2.5 mg Documented by: Senna/Docusate Sodium (Senokot-S, Jonelle-Colace) 2 tablet PO BID PRN PRN PRN Reason: Constipation Sodium Chloride () 10 - 40 ml IV UD PRN PRN Reason: SALINE FLUSH Last Admin: 06/08/19 00:28 Dose: 20 ml Documented by: Throat Lozenges (Cepacol Sore Throat Lozenge) 1 lozenge MUCOUS MEM Q2H PRN PRN PRN Reason: SORE THROAT Discharge Activity: Return to Normal Activity Call your doctor if you observe: Fever of 101 or Higher, Shortness of breath, Dizziness, Fainting spells, Swelling in the ankles, Chest pain, Increased palpitations (irregular heartbeat) Home Medications: Medications to take at Discharge Aspirin 81 mg PO DAILY 04/06/18 Atorvastatin Calcium [Lipitor] 40 mg PO QHS 04/06/18 Carvedilol [Coreg ([place] [place])] 6.25 mg PO BID 04/06/18 Clopidogrel Bisulfate [Plavix] 75 mg PO DAILY 04/06/18 Gabapentin [Neurontin] 600 mg PO TIDCM 04/06/18 Insulin Aspart [Novolog Flexpen] 0 units SC ACHS 04/06/18 Levothyroxine [Synthroid] 137 mcg PO DAILY 04/06/18 Metolazone [Zaroxolyn] 5 mg PO DAILY 04/06/18 Nitroglycerin (INPATIENT USE) [Nitrostat] 0.4 mg SUBLINGUAL Q5M PRN 04/06/18 Ramipril [Altace] 2.5 mg PO DAILY 04/06/18 Calcium Acetate 667 mg PO TIDCM 05/02/19 Furosemide 40 mg PO BID 05/02/19 Insulin Degludec [Tresiba] 24 units SQ DAILY 05/02/19 hydrALAZINE [Apresoline] 10 mg BID 05/02/19 Primary Care Physician: Mary Ramirez DO [Primary Care Provider] - Please follow up with your Primary Care Physician in: 3-5 days Please Follow Up With: Trey Bentley When: 2-4 weeks Disposition: Home Minutes spent on discharge:: 35 Patient Condition:: Stable Medical Necessity - Tobacco Use Smoking Status: Former smoker - Patient quit cigarette tobacco usage at least 30 years prior to current presentation. Tobacco Use: Non-smoker Meaningful Use Info Meaningful Use Diagnoses (Choose all that apply): None applicable Code Visit Inpatient E&M: 42709 Disch Hosp
--- NOTE | 2019-06-08 10:53 | CASEMGMT ---
RN CM assessment: Face to Face with patient for initial transition planning/care coordination assessment. RN CM introduced self and role at [facility], pt voices understanding and consents to assessment at this time. Pt is sitting up in chair in no distress at this time. Pt is A/Ox4 at this time and answers all questions appropriately at this time. Pt states she is not sure if she is ready to go home at this time and when this RN CM asks, pt is unable to give clear answer as to why but then pt's speaks up and states that he feels pt has been depressed since their son in February. This RN CM then continued to discuss with pt and pt was forthcoming with information at this time. Pt did start crying immediately and stated that their only son suddenly in February. Pt states that the autopsy showed that the entire 'left side of his heart was blocked' and we never knew anything. She states that the dr said he was before he hit the ground(after fallling backwards) and this RN CM did encourage pt that he did not suffer and she voiced understanding and gratitude for that fact. Pt states that she has not been feeling like doing much for the last several weeks. When this RN CM asks if pt has talked to anyone about this, pt states 'yes, kind of.' Pt's states concerns that pt has been doing 'less and less' and that 'she's not even interested in her crafts anymore.' Mitali HOLLINS updated on son's and pt depression per at this time, voices understanding. Care providers, pharmacy, and demographics verified at this time. Presentation: Pt w/ constant chest heaviness/SOB since yesterday. pt did have her dialysis Admitting dx: Chest pain PCP: Mary Ramirez Specialists: Elicia nephro; Eric, cardio in [place]; Youth Support Worker in [place]; nury Lopez in [place]; metal container maker in [place] Preferred Pharmacy: [facility] Insurance: MCR A/B, MMO Prescription Benefit: MCR D Living Will/HPOA: Pt states has LW/HPOA and is aware that they are not on file at [facility] at this time. Pt states that her , Simon Cain, is HPOA. LNOK: Simon Cain, ; Adelita Polk, [id number] Living Arrangements: Pt lives with in 1 story home with 5 railed steps in and pt does state some concerns with getting up stairs at home but states has not been going out much besides dialysis and physician appt's. Pt states assists with cooking/cleaning and laundry and that she completes her self-care. Transportation: Pt states drives and denies transportation concerns at this time. DME/HHC: Pt states has several walkers and canes as well as gait belt and shower chair. Pt states does not use the walkers/canes normally. Pt declines need for any further DME at this time. Pt states has OP dialysis MWF at [facility]. Pt states no hx of HHC or SNF in the past. Pt states no concerns with going home at time of discharge. Pt is retired. Pt states quit smoking cigarettes 30 years ago and states rarely drinks ETOH. Pt states no further concerns/needs at this time. CM to follow for any further discharge planning/needs. Advised pt to ask for CM if any further questions/concerns/needs arise, voices understanding. Pt Goal: Home Plan: Home Angelo FRANCE CM
--- NOTE | 2019-06-08 11:43 | CASEMGMT ---
RN SUSAN said patient's son in February of a heart attack and patient is tearful. SW met with patient, introduced self and role at [facility]. SW brought up her son dying. She told SW the story about her son. SW listened and provided emotional support. SW told her about [facility]. She was open to taking the information. She said her daughter would probably benefit from it as well. She thanked GURVINDER for the information. Clarissa SCOTT MSW
[2019-06-08 11:50] LABS: Bedside Glucose 232 mg/dL (70-110)
[2019-06-08 12:01] LABS: Bedside Glucose 351 mg/dL (70-110)
== END 2019-06-08 12:54 | disposition home or self-care (01) | DRG 313 ==
LOC: ED 20:45 → PCU 22:20
PROVIDERS: Admitting Provider Family Medicine; Emergency Provider Emergency Medicine; Visit Provider Family Medicine
DX: R07.9 Chest pain, unspecified (principal); N18.6 End stage renal disease; I13.2 Hypertensive heart and chronic kidney disease with heart failure and with stage 5 chronic kidney disease, or end stage renal disease; I50.22 Chronic systolic (congestive) heart failure; D69.3 Immune thrombocytopenic purpura; T82.858A Stenosis of other vascular prosthetic devices, implants and grafts, initial encounter; E11.22 Type 2 diabetes mellitus with diabetic chronic kidney disease; E11.65 Type 2 diabetes mellitus with hyperglycemia; E11.40 Type 2 diabetes mellitus with diabetic neuropathy, unspecified; D63.1 Anemia in chronic kidney disease; E78.5 Hyperlipidemia, unspecified; I25.10 Atherosclerotic heart disease of native coronary artery without angina pectoris; E03.9 Hypothyroidism, unspecified; E66.9 Obesity, unspecified; Z68.38 Body mass index [BMI] 38.0-38.9, adult; Z95.1 Presence of aortocoronary bypass graft; Z95.810 Presence of automatic (implantable) cardiac defibrillator; Z99.2 Dependence on renal dialysis; Z79.4 Long term (current) use of insulin; Z79.02 Long term (current) use of antithrombotics/antiplatelets; Z79.82 Long term (current) use of aspirin; Z79.890 Hormone replacement therapy; Z87.891 Personal history of nicotine dependence
CPT/HCPCS: 36415; 71045; 78452; 80048; 80061; 82962; 83036; 83735; 84484; 85025; 90937; 93005; 93017; 93990; 97802; 99251; 99285; A9500; A4216; G0257; G0463; J2405; J2785

== ENCOUNTER 2019-06-17 13:03 | Emergency (ER) | payer MEDICARE, OTHER, SELFPAY ==
[2019-06-06 22:43] VITALS: BMI 38.0
[2019-06-17] VITALS (7 sets, daily range): BP systolic 121–143; BP diastolic 44–51; PULSE 71–78; RESP 15–22; TEMP 36.6; O2SAT 98–100; BMI 37.5
--- NOTE | 2019-06-17 13:24 | EKG12_ITS ---
Test Reason : CP Blood Pressure : / mmHG Vent. Rate : 080 BPM Atrial Rate : 080 BPM P-R Int : 208 ms QRS Dur : 154 ms QT Int : 442 ms P-R-T Axes : 108 -67 126 degrees QTc Int : 509 ms Atrial-sensed ventricular-paced rhythm Biventricular pacemaker detected Abnormal ECG Confirmed by MIREYA DAIGLE, LUCA ([id number]), editor city YANI GALINDO ([id number]) on 06/19/2019 2:14:12 PM Referred By: Confirmed By:GREGORY GOMES MD
--- NOTE | 2019-06-17 13:24 | RAD_ITS ---
STUDY: X-RAY CHEST REASON FOR EXAM: Female, 68 years old. CHEST PRESSURE TODAY TECHNIQUE: AP COMPARISON: 06/06/2019 FINDINGS: Right jugular dialysis catheter is stable with tip in the upper SVC. Cardiac conduction device is stable. Sternal wires and mediastinal surgical clips compatible with prior CABG. No airspace consolidation. Parenchymal and pleural opacity of the right costophrenic angle is mildly decreased. There is mild cardiac enlargement. Normal mediastinum and kevin. Normal visualized pulmonary arteries. There is atherosclerotic calcification of the aortic arch with tortuosity. No acute bony process. There is no demonstrated abnormality of the visualized soft tissue structures of the upper abdomen. RAD/Chest 1 View (Portable) IMPRESSION: Decreased right lateral basilar atelectasis or infiltrate. Electronically Signed: Hemal Dia MD (Brooks) at 14:02 EST , Service support ,
[2019-06-17] MEDS: Aspirin 81 MG TAB.CHEW 324 MG PO (13:56)
[2019-06-17] MEDS: Nitroglycerin Oint 1 INCH PACKET TRANSDERM. (13:57)
[2019-06-17] MEDS: Ondansetron 4 MG/2 ML Vial IV (14:00)
[2019-06-17] MEDS: Morphine 4 MG/ML Syringe IV (14:01)
[2019-06-17 14:31] LABS: Absolute Lymphocyte Count 0.58 X10^3/uL (0.83-4.51); Absolute Neutrophil Count 4.6 X10^3/uL (2.0-7.7); Basophil# 0.03 X10^3/uL; Basophil% 0.5 % (0-1); Eosinophil# 0.06 X10^3/uL; Hematocrit 27.8 % (37-47); Hemoglobin 8.6 g/dL (12.0-15.0); Lymphocyte # 0.58 X10^3/ul (4.0); Lymphocyte % 10.1 % (19-41); Mean Corp Hgb Conc 30.9 g/dL (32-36); Mean Corpuscular Hgb 33.7 pg (27.0-32.0); Mean Platelet Vol. 10.9 fl (6.2-12.0); Monocyte# 0.43 X10^3/uL; Monocyte% 7.5 % (0-10); NRBC Flagged by Analyzer 0 % (0-5); Neutrophil % 80.4 % (47-70); POSITIVE COUNT YES; POSITIVE DIFFERENTIAL YES; Platelet Count 60 K/mm3 (150-450); RBC Distribution Width CV 15.4 % (11.6-14.6); RBC Distribution Width SD 60.1 fl (35.1-43.9); Red Blood Count 2.55 M/mm3 (4.2-5.4); White Blood Count 5.7 K/mm3 (4.4-11.0)
[2019-06-17 14:47] LABS: Anion Gap 7 (5-15); BUN 39 mg/dL (7-18); Calcium,Total 8.5 mg/dL (8.5-10.1); Chloride 99 mmol/L (98-107); EST Glomerular Filtration Rate 17 mL/min (>60); Est Glom Filt Rate - Afr Amer 20 mL/min (>60); Glucose 384 mg/dL (74-106); Potassium 4.3 mmol/L (3.5-5.1); Sodium Level 130 mmol/L (136-145)
[2019-06-17 14:53] LABS: Differential Comment SCANNED; Differential Indicated SCAN CRITERIA MET; Platelet Estimate MOD DEC (ADEQ)
--- NOTE | 2019-06-17 15:39 | ED.VISSUMM ---
- ER Visit Summary Date of Service: 06/17/19 Chief Complaint: [Chest pain] History of Present Illness: The patient is a 68 F [presents to the emergency department complaint of 2-day history of chest discomfort. Patient states the pains been rather continuous across her chest and rates it a 10 out of 10. Patient describes it as pressure and heaviness. Patient states that she was seen and admitted to the hospital for the same complaint about a week and a half ago and had a stress test at that time. Patient was told she may need an outpatient heart cath. Patient denies recent travel or surgery. Patient is a dialysis patient. Patient has history of CHF, diabetes, hypertension, hypothyroidism, and coronary artery disease. Patient had a CABG in 2003.] Physical Examination: [HEENT-PERRLA, EOMI. Cranial nerves II through XII grossly intact. TMs clear. Mucous membranes moist. No adenopathy. Cardiovascular-regular rate and rhythm without murmur or ectopy Lungs-clear to auscultation, chest wall stable without crepitus or subcu emphysema Abdomen-normoactive bowel sounds, soft, nontender, no rebound or rigidity, no peritoneal signs. Extremities-intact ?4, normal range of motion, normal pulses, atraumatic] Test Results: [EKG obtained arrival shows paced rhythm with a ventricular rate of 80 bpm. When compared with prior EKG from June 07 no new changes noted. CBC with differential showed a white count 5.7, hemoglobin 8.6, hematocrit 28, platelets 60. Chemistries unremarkable. BUN was 39 and creatinine 3.0. Troponin was 0.579 which is elevated compared to prior troponins.] Emergency Department Course and Treatment: [Patient was given aspirin and an inch of Nitropaste. Patient was given 4 mg of morphine IV and 4 mg Zofran IV. She had good pain relief with that.] Treatment Plan: [Admit] Disposition: [Admit] Impression: [Coronary syndrome Non-ST elevation MS Thrombocytopenia Chronic renal failure] This note was generated with [employer] dictation software. It may contain incorrect words, spelling, and punctuation that were not noted in review of the chart prior to signing ED Disposition - Plan for ED Patient: Referrals: Mary Ramirez DO [Primary Care Provider] -
--- NOTE | 2019-06-17 16:52 | PN_ITS ---
<Israel Mane - Last Filed: 06/17/19 16:52> Reason for Visit: Chest pain Subjective: THis is a 68 year old female with pmhx of CAD, hypothyroidism, DMt2, ESRD, htn, HLD, chronic anemia, chronic thrombocytopenia, who presented to the ER with c/o chest pain. She was recently in the hospital with chest pain 06/06/2019, und erwent a stress test which showed decreased EF 24%, and possible alivia infacrt ischemia. At that time the plan was for the patient to follow up with her security supervisor in [place] for an outpatient cath. She never followed up. She had increased chest pain over the past few days that she described as a ton of weight sitting on her chest. Nothing made it better or worse. It as constant. She denied nausea/vomiting/sob/diaphoresis. EKG showed no acute changes. Trop was elevated 0.519. We met with the patient to discuss the probably need for heart cath, and she reported that she would prefer to go to see her own security supervisor Dr. Anguiano in [place] as she has had this security supervisor for many years. Vitals/I&O's: Vital Signs Temp Pulse Resp BP Pulse Ox 98 F 71 17 130/46 H 99 06/17/19 14:56 06/17/19 16:07 06/17/19 16:07 06/17/19 16:07 06/17/19 16:07 Oxygen Flow Rate (L/min) 2 Oxygen Delivery Method Room Air Weight: 218 lb 7.649 oz Body Mass Index (BMI) 37.5 General: Alert, Oriented x3, Cooperative HEENT: Atraumatic, PERRLA, EOMI, Normocephalic Neck: Supple, No JVD, Negative Carotid Bruits Lungs: Clear to auscultation, Normal air movement Cardiovascular: Regular rate, No murmurs Abdomen: Bowel Sounds Present, Soft, Non Tender, Obese Extremities: No edema, Capillary Refill Less than 3 Seconds Skin: No rashes, No breakdown Musculoskeletal: No Tenderness to Palpation of Joints or Extremities Neurological: Cranial nerves II-XII grossly intact Psych/Mental Status: Normal Affect, Alert and oriented to time, place, person, mood and affect Laboratory Results 06/17/19 13:55: Sodium 130 L, Potassium 4.3, Chloride 99, Carbon Dioxide 24.0, Anion Gap 7, BUN 39 H, Creatinine 3.00 H, Estim Creat Clear Calc 15.50, Est GFR (MDRD) Af Amer 20 L, Est GFR (MDRD) Non-Af 17 L, BUN/Creatinine Ratio 13.0, Glucose 384 H, Calcium 8.5, Troponin I 0.519 H 06/17/19 14:10: WBC 5.7, RBC 2.55 L, Hgb 8.6 L, Hct 27.8 L, MCV 109.0 H, MCH 33.7 H, MCHC 30.9 L, RDW Std Deviation 60.1 H, RDW Coeff of Mary 15.4 H, Plt Count 60 L, MPV 10.9, Immature Gran % (Auto) 0.500, Neut % (Auto) 80.4 H, Lymph % (Auto) 10.1 L, Beckham % (Auto) 7.5, Eos % (Auto) 1.0, Baso % (Auto) 0.5, Absolute Neuts (auto) 4.6, Absolute Lymphs (auto) 0.58 L, Nucleated RBC % 0, Differential Comment SCANNED, Platelet Estimate MOD DEC Current Medications Sodium Chloride () 1,000 mls @ 15 mls/hr IV .Q48H ROBERT Last Admin: 06/17/19 14:25 Dose: Not Given Documented by: STROKE Vital Signs/Narrative: Vital Signs Temp Pulse Resp BP Pulse Ox 06/17/19 16:07 71 17 130/46 H 99 06/17/19 14:56 98 F 72 16 131/51 H 98 06/17/19 14:04 72 16 99 06/17/19 13:57 74 143/44 H 06/17/19 13:50 99 06/17/19 13:04 97.9 F 78 22 H 143/44 H 100 Medical Necessity - Tobacco Use Smoking Status: Former smoker Assessment/Plan All Active Problems CAP (community acquired pneumonia) (Acute) Hyperglycemia (Acute) Chest pain (Acute) 1. Chest pain, underlying CAD - recent stress test with abnormalities, decreased EF. Recurrent chest pain. Failed to f/u as o/p for outpatient cath. Now troponin is up. EKG without acute chagnes. Pt likely needs a heart cath. She prefers to have this done with her own Supervisor Curing Room Dr. Anguiano in [place]. She will be transferred from the ER. EKG is A paced. Has PM/AICD. 2. ESRD - pt of Dr. Rubi. last dialysis Wednesday. 3. Anemia of chronic dz - Hgb 8.6. likely contributing to increased coronary demand. 4. Idiopathic thrombocytopenia - will complicate treatment options with regards to antiplatelet agents. 5. DMt2 with hyperglycemia - pt needs optimization of glycemia given her ongoing CAD. Last A1C 7.2. 6. hypothyroidism 7. HTN - mildly elevated Disposition : transfer to the care of her own security supervisor Thank you for the opportunity to participate in the care of this patient This patient was seen by Israel Mane PA-C under the supervision of Dr. Lyle. <Clint Lyle F - Last Filed: 06/17/19 17:25> Vitals/I&O's: Vital Signs Temp Pulse Resp BP Pulse Ox 98 F 71 15 121/45 H 98 06/17/19 14:56 06/17/19 17:08 06/17/19 17:08 06/17/19 17:08 06/17/19 17:08 Oxygen Flow Rate (L/min) 2 Oxygen Delivery Method Room Air Weight: 218 lb 7.649 oz Body Mass Index (BMI) 37.5 Laboratory Results 06/17/19 13:55: Sodium 130 L, Potassium 4.3, Chloride 99, Carbon Dioxide 24.0, Anion Gap 7, BUN 39 H, Creatinine 3.00 H, Estim Creat Clear Calc 15.50, Est GFR (MDRD) Af Amer 20 L, Est GFR (MDRD) Non-Af 17 L, BUN/Creatinine Ratio 13.0, Glucose 384 H, Calcium 8.5, Troponin I 0.519 H 06/17/19 14:10: WBC 5.7, RBC 2.55 L, Hgb 8.6 L, Hct 27.8 L, MCV 109.0 H, MCH 33.7 H, MCHC 30.9 L, RDW Std Deviation 60.1 H, RDW Coeff of Mary 15.4 H, Plt Count 60 L, MPV 10.9, Immature Gran % (Auto) 0.500, Neut % (Auto) 80.4 H, Lymph % (Auto) 10.1 L, Beckham % (Auto) 7.5, Eos % (Auto) 1.0, Baso % (Auto) 0.5, Absolute Neuts (auto) 4.6, Absolute Lymphs (auto) 0.58 L, Nucleated RBC % 0, Differential Comment SCANNED, Platelet Estimate MOD DEC Current Medications Sodium Chloride () 1,000 mls @ 15 mls/hr IV .Q48H ROBERT Last Admin: 06/17/19 14:25 Dose: Not Given Documented by: STROKE Vital Signs/Narrative: Vital Signs Temp Pulse Resp BP Pulse Ox 06/17/19 17:08 71 15 121/45 H 98 06/17/19 16:07 71 17 130/46 H 99 06/17/19 14:56 98 F 72 16 131/51 H 98 06/17/19 14:04 72 16 99 06/17/19 13:57 74 143/44 H 06/17/19 13:50 99 Code Visit Addendum: Dr. Lyle I personally examined the patient and reviewed the chart. I agree with the above. 68-year-old female with end-stage renal disease on dialysis Wednesday and Wednesday presents with recurrent chest pain. She had been admitted at this facility about a week ago with chest pain at that time she had a stress test which demonstrated that her EF was 24% and that she had possible alivia- infarct ischemia though it was very mild and was not causing any significant hypokinesis. On her previous admission her troponins were negative however today her troponin is 0.519. I discussed with her that since we had already done a stress test that she would likely need a heart cath she requested to be transferred to where her security supervisor is which is in [place]. OBSV E&M: [id number] Subsequent observation care L3
== END 2019-06-17 17:23 | disposition short-term general hospital (02) ==
LOC: ED 13:39
PROVIDERS: Emergency Provider Emergency Medicine
DX: I25.10 Atherosclerotic heart disease of native coronary artery without angina pectoris (principal); I21.4 Non-ST elevation (NSTEMI) myocardial infarction; I13.2 Hypertensive heart and chronic kidney disease with heart failure and with stage 5 chronic kidney disease, or end stage renal disease; E11.22 Type 2 diabetes mellitus with diabetic chronic kidney disease; I50.9 Heart failure, unspecified; N18.6 End stage renal disease; D63.1 Anemia in chronic kidney disease; E03.9 Hypothyroidism, unspecified; E78.5 Hyperlipidemia, unspecified; D69.3 Immune thrombocytopenic purpura; E11.65 Type 2 diabetes mellitus with hyperglycemia; Z79.82 Long term (current) use of aspirin; Z79.4 Long term (current) use of insulin; Z79.02 Long term (current) use of antithrombotics/antiplatelets; Z99.2 Dependence on renal dialysis; Z95.1 Presence of aortocoronary bypass graft; Z87.891 Personal history of nicotine dependence; Z95.810 Presence of automatic (implantable) cardiac defibrillator
CPT/HCPCS: 71045; 80048; 84484; 85025; 93005; 96374; 96375; 99285; A4216; J2405

== ENCOUNTER 2019-06-26 22:13 | Inpatient (IN) | payer MEDICARE, OTHER, SELFPAY ==
[2019-06-17 13:04] VITALS: BMI 37.5
[2019-06-26 22:14] VITALS: BP 62/26; PULSE 80; RESP 16; O2SAT 98
[2019-06-26 22:15] VITALS: BP 62/26; PULSE 80; RESP 18; TEMP 36.3; O2SAT 98; BMI 38.5
--- NOTE | 2019-06-26 22:36 | EKG12_ITS ---
Test Reason : DYSRHYTHMIA Blood Pressure : / mmHG Vent. Rate : 080 BPM Atrial Rate : 107 BPM P-R Int : 000 ms QRS Dur : 180 ms QT Int : 460 ms P-R-T Axes : 000 -84 070 degrees QTc Int : 530 ms Biventricular pacemaker detected Abnormal ECG Confirmed by MARIZA DAIGLE, GERTRUDIS ([id number]), tape editor DEVON HURT ([id number]) on 06/28/2019 1:39:00 PM Referred By: Confirmed By:GERTRUDIS DAWKINS MD
--- NOTE | 2019-06-26 23:25 | RAD_ITS ---
STUDY: X-RAY CHEST REASON FOR EXAM: Female, 68 years old. Central line placement TECHNIQUE: Single AP portable view of the chest. COMPARISON: 06/17/2019. 06/06/2019. FINDINGS: Interval placement of a left internal jugular approach central line with catheter tip at the left brachiocephalic superior vena cava junction. Stable right internal jugular temporary dialysis catheter with tip over the superior vena cava. There is a multilead permanent pacemaker. Resolution of previous right basilar airspace disease and effusion. There is no demonstrated pleural abnormality There is no demonstrated pneumothorax. Sternal cerclage wires are present from a prior sternotomy. Stable cardiac enlargement. Normal mediastinum and kevin. Normal visualized pulmonary arteries. Normal visualized aortic arch and descending thoracic aorta. There are diffuse degenerative changes of the visualized thoracic spine. Normal visualized ribs, clavicles, and shoulders. There is no demonstrated abnormality of the visualized soft tissue structures of the upper abdomen. RAD/Chest 1 View (Portable) IMPRESSION: Lines as above. There is no demonstrated pneumothorax. Stable cardiac enlargement, degenerative changes, postsurgical changes. Interval resolution of previous right basilar airspace disease and effusion. Electronically Signed: Meaghan Morales MD at 0:00 EST , Service support ,
--- NOTE | 2019-06-26 23:38 | ED.DCSUM_ITS ---
- ER Visit Summary Date of Service: 06/26/19 Chief Complaint: Abdominal pain History of Present Illness: The patient is a 68 F with abdominal pain. She states this started 2 to 3 days ago. She is currently staying at [facility]. She states she is there temporarily for silvia ab. She is on hemodialysis Wednesday and completed dialysis today. She states has had right-sided abdominal pain for the past 2 to 3 days. She denies nausea, vomiting, diarrhea. Denies fever. Denies chest pain or shortness of breath. Denies other complaints. Patient had a recent admission to [facility]. She was admitted from 06/17- 06/23/2019. During that hospital admission she had a heart catheterization that showed similar findings to cath of 2018 with complete occlusion of left main 100%, patent MCCONNELL to LAD, SVG to proximal PDA and stenosis of OM1 graft. EF 25 to 30%. Medical management was recommended. Physical Examination: Blood pressure 62/26. Patient is afebrile. Alert no acute distress. HEENT exam is unremarkable. Neck is supple. Lungs are clear and equal bilaterally. Heart is regular rate and rhythm. Abdomen is soft right upper and right mid abdominal tenderness Extremities are unremarkable. Skin is warm and dry. Multiple ecchymosis No focal neurologic deficit. Remainder of exam is unremarkable. Emergency Department Course and Treatment: Unable to obtain peripheral IV. Phoebe ent remains hypotensive. She was consented for central line. Central line was placed with sterile technique, with ultrasound guidance using Seldinger technique. Chest x-ray shows line in place. She was given Zofran, fentanyl, IV fluids. EKG is paced at rate of 80, similar to previous. CBC shows white count 16.3, platelets 88. Chemistries show sodium 131, CO2 18, BUN 42, creatinine 5.4. Total bili 1.7, alk phos 125, AST 203. Troponin 804. Lactic acid 11. Patient continued to be hypotensive. She was started on levophed. With hypotension, patient became unresponsive and had no pulse. CPR was started. She was given epinephrine. Patient regained pulse and is responsive. Levophed is continued. She had another episode of hypotension with no pulse and CPR was again started. She became responsive quickly after CPR began. Family is now at bedside. I had a long discussion with her family and . They understand that she is critically ill. They do not wish for her to be transferred to a tertiary care center or have heroic measures performed. If her heart stops, they would like her to be made comfortable at that time and do not wish for CPR, defibrillation, or intubation. CT abdomen is pending. Discussed with Dr. Yung, Dr. Rosas and the hospitalist. Critical care time: 30 minutes Disposition: Admission Impression: Hypotension, s/p cardiac arrest, abdominal pain This note was generated with [employer] dictation software. It may contain incorrect words, spelling, and punctuation that were not noted in review of the chart prior to signing ED Disposition - Plan for ED Patient:
[2019-06-26 23:49] LABS: Absolute Lymphocyte Count 1.09 X10^3/uL (0.83-4.51); Absolute Neutrophil Count 13.1 X10^3/uL (2.0-7.7); Basophil# 0.08 X10^3/uL; Basophil% 0.5 % (0-1); Eosinophil# 0.02 X10^3/uL; Eosinophils% 0.1 % (0-5); Hematocrit 38.6 % (37-47); Lymphocyte # 1.09 X10^3/ul (4.0); Lymphocyte % 6.7 % (19-41); Mean Corp Hgb Conc 31.1 g/dL (32-36); Mean Corpuscular Hgb 32.5 pg (27.0-32.0); Mean Corpuscular Volume 104.6 fL (81-99); Mean Platelet Vol. 12.2 fl (6.2-12.0); Monocyte% 7.4 % (0-10); NRBC Flagged by Analyzer 0.1 % (0-5); Neutrophil # 13.12 X10^3/uL (2.7-7.7); Neutrophil % 80.6 % (47-70); POSITIVE COUNT YES; POSITIVE MORPHOLOGY YES; Platelet Count 88 K/mm3 (150-450); RBC Distribution Width CV 19.8 % (11.6-14.6); RBC Distribution Width SD 75.6 fl (35.1-43.9); Red Blood Count 3.69 M/mm3 (4.2-5.4); White Blood Count 16.3 K/mm3 (4.4-11.0)
[2019-06-26] MEDS: fentaNYL 100 MCG/2 ML Ampul 50 MCG IV (23:49)
[2019-06-26] MEDS: Ondansetron 4 MG/2 ML Vial IV (23:49)
[2019-06-26 23:52] LABS: Differential Indicated SCAN CRITERIA MET
[2019-06-27] VITALS (30 sets, daily range): BP systolic 38–118; BP diastolic 13–94; PULSE 78–96; RESP 12–80; TEMP 36.2–36.8; O2SAT 93–100; BMI 37.9
[2019-06-27] MEDS: 0.9% Normal Saline 1,000 ML 999 ML IV ×2 (00:05→01:10)
[2019-06-27 00:11] LABS: Lactic Acid 11.1 mmol/L (0.4-1.9)
[2019-06-27 00:17] LABS: Anisocytosis 1+; Macrocytosis 2+; Platelet Estimate MOD DEC (ADEQ)
--- NOTE | 2019-06-27 00:22 | CT_ITS ---
STUDY: CT ABDOMEN AND PELVIS WITHOUT CONTRAST REASON FOR EXAM: Female, 68 years old. ABD PAIN, SEPTIC SHOCK, CODED X 2 RADIATION DOSAGE (If Supplied By Facility): CTDIvol = ( 23.28 ) mGy, DLP = ( 1169.19 ) mGycm TECHNIQUE: Transaxial 2.5 mm images were obtained from the dome of the diaphragm to the symphysis pubis without oral contrast, and without intravenous contrast. Sagittal and coronal images were reconstructed. This examination is limited for the evaluation of gastrointestinal, solid organs and vascular structures due to the lack of intravenous and oral contrast. There is obesity, the entirety of soft tissue is not imaged. Individualized dose optimization techniques were used for this CT. COMPARISON: None. FINDINGS: Small right pleural effusion. Compression of dependent parenchyma, possible early infiltrate right base. Cardiomegaly, postsurgical changes, coronary artery disease, streak artifact caused by pacer leads. No pericardial fluid. There is a diffuse contour abnormality of the liver consistent with cirrhotic changes. Liver measures craniocaudal 18 cm. There is perihepatic fluid and subhepatic fluid limiting the gallbladder and portal detail. Gallbladder is not visualized. There is mild splenomegaly. There is diffuse atrophy of the pancreas. There is indistinct mesenteric fat in the nitin, upper abdomen and around the pancreas. There are tortuous vessels in the nitin as well as adjacent to the stomach, high suspicion for recanalization of umbilical vein on noncontrast imaging. Normal bilateral adrenal glands. Bilateral moderate renal involution with a small size and cortical thinning. There is a focal low attenuation in the left anterior mid kidney of 1.8 x 1.9 cm measuring near water density. The wall of the antrum and proximal duodenum is not sufficiently visualized, there is a high suspicion for antral wall thickening with perigastric stranding. Wall thickening appears to be extending to approximately 1.2 cm. Probable duodenal diverticulum.. Normal small intestine. Decompressed colon. There is non-visualization of the appendix. There is mild fluid along the right greater than left colonic gutter. There is extensive diffuse atherosclerosis of the abdominal aorta, greater branches and pelvic arteries without aneurysm or leak. Normal inferior vena cava. Normal retroperitoneum. Perry catheter decompressing the urinary bladder. Uterus is not visualized. There is mild pelvic fluid. Normal abdominal wall. Obesity. There are diffuse degenerative changes of the visualized lumbar spine, bilateral hip and sacroiliac joints, lower lumbar facet joints, osteopenia. Changes involving the trabecular pattern possible due to renal insufficiency. CT/Abdomen/Pelvis without Cont IMPRESSION: Significant mesenteric fat stranding at the level of the pancreas, gastric antrum and duodenum, a primary enteritis or duodenitis may be present, pancreatitis as an etiology is focal to separate. No pseudocyst, abscess, perforation, colitis detected on noncontrast imaging. Hepatosplenomegaly, hepatic cirrhosis, portal hypertension and varices. Renal and pancreas involution, probable left renal cyst, this can be verified with ultrasound as needed. Extensive severe diffuse arterial sclerosis. Electronically Signed: Meaghan Morales MD at 4:31 EST , Service support ,
[2019-06-27 00:41] LABS: Bedside Glucose 112 mg/dL (70-110)
[2019-06-27 00:51] LABS: ALB/GLOB Ratio 0.6 RATIO (0.9-2.4); AST(SGOT) 203 U/L (15-37); Alanine Aminotransfer ALT/SGPT 22 U/L (13-56); Albumin, Serum 2.9 g/dL (3.2-5.0); Alkaline Phosphatase 125 U/L (45-117); Anion Gap 17 (5-15); BUN 42 mg/dL (7-18); BUN/Creat Ratio 7.8 RATIO (10-20); Calcium,Total 9.3 mg/dL (8.5-10.1); Chloride 96 mmol/L (98-107); EST Glomerular Filtration Rate 8 mL/min (>60); Est Glom Filt Rate - Afr Amer 10 mL/min (>60); Estimated Creatinine Clearance 8.61 ml/min; Globulin 4.5 g/dL (2.2-4.2); Glucose 147 mg/dL (74-106); Lipase 81 U/L (73-393); Protein, Total 7.4 g/dL (6.4-8.2); Sodium Level 131 mmol/L (136-145)
--- NOTE | 2019-06-27 02:04 | HP.PCM_ITS ---
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 insulin (5) ESRD (end stage renal disease) on dialysis Status: Chronic (6) Hyperglycemia Status: Acute (7) HTN (hypertension) Status: Chronic Qualifiers: Hypertension type: essential hypertension Qualified Code(s): I10 - Essential (primary) hypertension (8) HLD (hyperlipidemia) Status: Chronic Qualifiers: Hyperlipidemia type: unspecified Qualified Code(s): E78.5 - Hyperlipidemia, unspecified (9) Chronic anemia Status: Chronic (10) Chronic idiopathic thrombocytopenia Status: Chronic (11) CAD (coronary artery disease) Status: Chronic Qualifiers: Coronary Disease-Associated Artery/Lesion type: unspecified vessel or lesion type [place] vs. transplanted heart: unspecified whether [place] or transplanted heart Associated angina: angina presence unspecified Qualified Code(s): I25.10 - Atherosclerotic heart disease of [place] coronary artery without angina pectoris (12) Hypothyroidism Status: Chronic Qualifiers: Hypothyroidism type: unspecified Qualified Code(s): E03.9 - Hypothyroidism, unspecified History of Present Illness Date of Admission: 06/27/19 Chief Complaint: ABDOMINAL PAIN The patient is a 68 year old F with a significant history of hypertension; diabetes mellitus; end-stage renal disease on dialysis (Wednesday); systolic heart failure with pacemaker and ICD; who presented to the emergency department with progressively worsening associating abdominal pain that started after her dialysis on the same day of her presentation. Also, patient has diffuse body pain. At the emergency department patient had CPR x2 times. Patient received normal saline bolus and then was started on Levophed drip. Emergent department after discussed the case with wood crafter and ceramic tile installation helper. Of note patient was discharged from [facility] about 3 days ago. She was admitted at [facility] on 17 June 2019 and was discharged on May2019. During that admission her ejection fraction was 24%. Her coronaries were found to be normal. Upon discharge she was sent to residential for rehab. Past Medical History Past Medical History (Chronic Problems): Chronic Problems Diabetes (Chronic) ESRD (end stage renal disease) on dialysis (Chronic) HTN (hypertension) (Chronic) HLD (hyperlipidemia) (Chronic) Chronic anemia (Chronic) Chronic idiopathic thrombocytopenia (Chronic) CAD (coronary artery disease) (Chronic) Hypothyroidism (Chronic) Allergies esomeprazole [From Nexium] Allergy (Verified 06/17/19 13:07) Upset Stomach Iodinated Contrast Media [CONTRASTS] Allergy (Verified 06/17/19 13:07) Other Home Medications: Ambulatory Orders Medication Instructions Recorded Aspirin 81 mg PO DAILY 04/06/18 Atorvastatin Calcium [Lipitor] 40 mg PO QHS 04/06/18 Clopidogrel Bisulfate [Plavix] 75 mg PO DAILY 04/06/18 Gabapentin [Neurontin] 600 mg PO TIDCM 04/06/18 Insulin Aspart [Novolog Flexpen] 0 units SC ACHS 04/06/18 Levothyroxine [Synthroid] 137 mcg PO DAILY 04/06/18 Metolazone [Zaroxolyn] 5 mg PO DAILY 04/06/18 Calcium Acetate 667 mg PO TIDCM 05/02/19 Furosemide 40 mg PO BID 05/02/19 Insulin Degludec [Tresiba] 24 units SQ DAILY 05/02/19 Ascorbic Acid [Vitamin C] 500 mg PO DAILY 06/27/19 Metoprolol(XL)Succ [Toprol Xl 12.5 mg PO DAILY 06/27/19 (Beta [place])] Multivit,Calc,Mins/Iron/Folic 1 ea PO DAILY 06/27/19 [Thera M Plus Tablet] Nitroglycerin [Nitrostat] 0.4 mg SL PRN PRN 06/27/19 Surgical History: angioplasty, - - CABG x4, possible PCI but patient not the best historian, right upper extremity aVF, bilateral cataract surgery, tonsillectomy, cholecystectomy, appendectomy, hysterectomy, left foot surgery, left total knee replacement. 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 Denies: Nausea, Vomiting Genitourinary: Denies: Dysuria Musculoskeletal: Reports: Muscle pain. Denies: Joint Pain, Joint Tenderness Skin: Denies: Rash, Wounds Neurological: Denies: Numbness, Tingling, Focal weakness Psychiatric: Reports: Anxiety. Denies: Homicidal Ideations, Suicidal Ideations Hematologic/ Lymphatic: Denies: Easy Bruising, Easy Bleeding VTE Information - Inpt Only VTE Present on Admission: No VTE Mechan Device Prophylaxis: None VTE Pharm Prophylaxis ordered?: Yes Patient Problems: Active and Suspected Problems Cardiac arrest (Acute) Hypotension (Acute) Abdominal pain (Acute) - Physical Exam Vitals/I&O's: Vital Signs Temp Pulse Resp BP Pulse Ox 97.4 F L 80 18 76/21 L 99 06/26/19 22:15 06/27/19 02:01 06/27/19 02:01 06/27/19 02:01 06/27/19 02:01 Oxygen Flow Rate (L/min) 3 Oxygen Delivery Method Nasal Cannula Weight: 101.8 kg Body Mass Index (BMI) 38.5 Intake and Output for Last 24 Hours 06/25/19 06/26/19 06/27/19 23:59 23:59 23:59 Intake Total / Balance General: Alert, Oriented x3, Cooperative HEENT: Atraumatic, EOMI, Normocephalic Neck: Supple, Trachea Midline Lungs: Clear to auscultation, Normal air movement, No rhonchi, No wheeze, No rales Cardiovascular: Regular rate, No murmurs, - - Diminished heart sounds. Thready pulse Abdomen: Bowel Sounds Present, Soft, Tender - Epigastric area Extremities: No edema, Cool - Extremities Skin: No rashes, No breakdown Musculoskeletal: No Muscle Wasting Neurological: Cranial nerves II-XII grossly intact Psych/Mental Status: Anxious Laboratory Results 06/26/19 23:25: WBC 16.3 H, RBC 3.69 L, Hgb 12.0, Hct 38.6, MCV 104.6 H, MCH 32.5 H, MCHC 31.1 L, RDW Std Deviation 75.6 H, RDW Coeff of Mary 19.8 H, Plt Count 88 L, MPV 12.2 H, Immature Gran % (Auto) 4.700 H, Neut % (Auto) 80.6 H, Lymph % (Auto) 6.7 L, [place] % (Auto) 7.4, Eos % (Auto) 0.1, Baso % (Auto) 0.5, Absolute Neuts (auto) 13.1 H, Absolute Lymphs (auto) 1.09, Nucleated RBC % 0.1, Differential Comment , Platelet Estimate MOD DEC, Anisocytosis 1+, Macrocytosis 2+ 06/26/19 23:25: Sodium 131 L, Potassium 5.0, Chloride 96 L, Carbon Dioxide 18.0 L, Anion Gap 17 H, BUN 42 H, Creatinine 5.40 H, Estim Creat Clear Calc 8.61, Est GFR (MDRD) Af Amer 10 L, Est GFR (MDRD) Non-Af 8 L, BUN/Creatinine Ratio 7.8 L, Glucose 147 H, Calcium 9.3, Total Bilirubin 1.70 H, AST 203 H, ALT 22, Alkaline Phosphatase 125 H, Troponin I 804.000 H*, Total Protein 7.4, Albumin 2.9 L, Globulin 4.5 H, Albumin/Globulin Ratio 0.6 L, Lipase 81 06/26/19 23:25: Lactic Acid 11.1 H* 06/27/19 00:35: POC Glucose 112 H Current Medications Norepinephrine Bitartrate 8 mg (/ Sodium Chloride) 250 mls @ 9.375 mls/hr CONT INF .[id number] [facility]; Protocol Last Titration: 06/27/19 01:12 Dose: 15 mcg/min, 28.1 mls/hr Documented by: Sodium Chloride () 1,000 mls @ 999 mls/hr IV .[id number] ROBERT Stop: 06/27/19 03:25 Last Infusion: 06/27/19 01:55 Dose: Infused Documented by: Assessment/Plan All Active Problems Hyperglycemia (Acute) Cardiac arrest (Acute) Hypotension (Acute) Abdominal pain (Acute) The patient is a 68 year old F with a significant history of hypertension; diabetes mellitus; end-stage renal disease on dialysis (Wednesday); systolic heart failure with pacemaker and ICD who presented to the emergency department with progressively worsening associating abdominal pain that started after her dialysis; diffuse body pain and was coded two times at the emergency department and was also found to have a low blood pressure. Cardiac arrest Etiology include cardiogenic shock; ischemic bowel or other. Patient was started on Levophed drip at emergency department. We will add vasopressin. Goal is to get at least systolic blood pressure of 90 and map of 65 after which patient can be sent for CT scanning of her abdomen as ordered at the emergency department. Patient received fentanyl and morphine at the emergency department. We will continue patient on fentanyl PRN. We will keep patient n.p.o. except meds. Ativan as needed for anxiety. Trend troponin. Consult wood crafter. Hypertension Home diuretics held. On vasopressin and Levophed. Hypothyroidism Synthroid continued. Check TSH. CAD status post CABG and stent Aspirin Plavix and Lipitor continued. Elevated troponin Per emergent department doctor cardiology recommended medical management. CPR could be contributing; trend. Diabetes mellitus Patient noted to have hyperglycemia Likely contributing to nephropathy. Hold home long-acting insulin in the setting of blood glucose on presentation being 147 and patient being kept n.p.o. Accu-Chek every 6 hours with correction scale insulin ordered. End-stage renal disease Likely from diabetes mellitus and hypertension. Patient is n.p.o. for now except meds. Patient n.p.o. because of abdominal pain. Nephrology consult. DVT Prophylaxis Subcutaneous heparin Code Visit Inpatient E&M: 12764 Init Hosp L3
[2019-06-27] MEDS: fentaNYL 100 MCG/2 ML Ampul 50 MCG IV (02:32)
[2019-06-27 03:32] LABS: Reflex Lactate? Y
--- NOTE | 2019-06-27 03:38 | NURSING ---
Report received from ROMÁN Romo.
--- NOTE | 2019-06-27 03:40 | NURSING ---
ER reports awaiting CT results before bringing pt to floor.
[2019-06-27] MEDS: fentaNYL 100 MCG/2 ML Ampul 25 MCG IV (04:42)
[2019-06-27 04:51] LABS: Lactic Acid 12.7 mmol/L (0.4-1.9)
--- NOTE | 2019-06-27 05:01 | SEPSIS_ITS ---
Sepsis Note - Physical Exam/Vitals Objective: Chest X-Ray 06/26/19 23:25 IMPRESSION: Lines as above. There is no demonstrated pneumothorax. Stable cardiac enlargement, degenerative changes, postsurgical changes. Interval resolution of previous right basilar airspace disease and effusion. Electronically Signed: Meaghan Morales MD at 0:00 EST , Service support , Abdomen/Pelvis CT 06/27/19 00:22 IMPRESSION: Significant mesenteric fat stranding at the level of the pancreas, gastric antrum and duodenum, a primary enteritis or duodenitis may be present, pancreatitis as an etiology is focal to separate. No pseudocyst, abscess, perforation, colitis detected on noncontrast imaging. Hepatosplenomegaly, hepatic cirrhosis, portal hypertension and varices. Renal and pancreas involution, probable left renal cyst, this can be verified with ultrasound as needed. Extensive severe diffuse arterial sclerosis. Electronically Signed: Meaghan Morales MD at 4:31 EST , Service support , Temp Pulse Resp BP Pulse Ox 97.4 F L 96 21 H 48/31 L 97 06/26/19 22:15 06/27/19 04:46 06/27/19 04:46 06/27/19 04:46 06/27/19 04:46 06/27/19 06/27/19 06/26/19 04:08 00:35 23:25 WBC RBC Hgb Hct MCV MCH MCHC RDW Std Deviation RDW Coeff of Mary Plt Count MPV Immature Gran % (Auto) Neut % (Auto) Lymph % (Auto) [place] % (Auto) Eos % (Auto) Baso % (Auto) Absolute Neuts (auto) Absolute Lymphs (auto) Nucleated RBC % Differential Comment Platelet Estimate Anisocytosis Macrocytosis Sodium Potassium Chloride Carbon Dioxide Anion Gap BUN Creatinine Estim Creat Clear Calc Est GFR (MDRD) Af Amer Est GFR (MDRD) Non-Af BUN/Creatinine Ratio Glucose Lactic Acid 12.7 H* 11.1 H* Calcium Total Bilirubin AST ALT Alkaline Phosphatase Troponin I Total Protein Albumin Globulin Albumin/Globulin Ratio Lipase POC Glucose 112 H 06/26/19 06/26/19 23:25 23:25 WBC 16.3 H RBC 3.69 L Hgb 12.0 Hct 38.6 MCV 104.6 H MCH 32.5 H MCHC 31.1 L RDW Std Deviation 75.6 H RDW Coeff of Mary 19.8 H Plt Count 88 L MPV 12.2 H Immature Gran % (Auto) 4.700 H Neut % (Auto) 80.6 H Lymph % (Auto) 6.7 L [place] % (Auto) 7.4 Eos % (Auto) 0.1 Baso % (Auto) 0.5 Absolute Neuts (auto) 13.1 H Absolute Lymphs (auto) 1.09 Nucleated RBC % 0.1 Differential Comment Platelet Estimate MOD DEC Anisocytosis 1+ Macrocytosis 2+ Sodium 131 L Potassium 5.0 Chloride 96 L Carbon Dioxide 18.0 L Anion Gap 17 H BUN 42 H Creatinine 5.40 H Estim Creat Clear Calc 8.61 Est GFR (MDRD) Af Amer 10 L Est GFR (MDRD) Non-Af 8 L BUN/Creatinine Ratio 7.8 L Glucose 147 H Lactic Acid Calcium 9.3 Total Bilirubin 1.70 H AST 203 H ALT 22 Alkaline Phosphatase 125 H Troponin I 804.000 H* Total Protein 7.4 Albumin 2.9 L Globulin 4.5 H Albumin/Globulin Ratio 0.6 L Lipase 81 POC Glucose General: Alert, Oriented x3, Cooperative Lungs: Clear to auscultation, Normal air movement Cardiovascular: Regular Rhythm, Normal S1, Normal S2 Capillary Refill: <3 seconds Peripheral Pulses: Normal Skin Color: [place], - - Cool ext; states that it is chronic - Assessment/Plan Received 2000 mL's of normal saline. On levo 30 mcgs/min;Vasopressin 0.04 units/min. Will add hydrocortisone with plan to reduce Levophed to keep map at least 65 or systolic blood pressure more than 90. One blood culture was obtained in the emergency department. Get another blood culture. Zosyn ordered. Continue maintenance IV infusion.
[2019-06-27] MEDS: 0.9% Normal Saline 1,000 ML 50 ML IV (05:40)
[2019-06-27 05:53] LABS: Hematocrit 41.1 % (37-47); Hemoglobin 12.4 g/dL (12.0-15.0); Mean Corp Hgb Conc 30.2 g/dL (32-36); Mean Corpuscular Hgb 32.7 pg (27.0-32.0); Mean Corpuscular Volume 108.4 fL (81-99); Mean Platelet Vol. 12.1 fl (6.2-12.0); POSITIVE COUNT YES; POSITIVE DIFFERENTIAL YES; POSITIVE MORPHOLOGY YES; Platelet Count 108 K/mm3 (150-450); RBC Distribution Width CV 19.9 % (11.6-14.6); RBC Distribution Width SD 80.7 fl (35.1-43.9); Red Blood Count 3.79 M/mm3 (4.2-5.4); White Blood Count 24.6 K/mm3 (4.4-11.0)
--- NOTE | 2019-06-27 05:55 | US_ITS ---
STUDY: ABDOMINAL ULTRASOUND REASON FOR EXAM: Female, 68 years old. LIVER DISEASE RENAL DISEASE F/U CT TECHNIQUE: Transabdominal ultrasound was performed with real-time and static wetzel scale imaging. TECHNICAL QUALITY: Limited. Examination limited due to the patient?s condition. COMPARISON: Comparison is made with prior CT scan abdomen and pelvis done earlier today. FINDINGS: Liver: The liver is enlarged and measures 22.0 cm. There is a heterogeneous echogenicity of the liver. The bile ducts are within normal limits. There is hepatic color flow. The direction of portal flow is hepatopetal. There is no demonstrated mass lesion. Portal vein measurement: Gallbladder: The patient is status post cholecystectomy. Common Bile Duct (C.B.D.): The common bile duct is dilated and measures 12.0 mm. Pancreas: There is nonvisualization of the pancreas due to overlying bowel gas. Spleen: There is splenomegaly. The spleen measures 14.5 cm x 2.9 cm x 4.4 cm. Right Kidney: Normal size of the right kidney. The right kidney measures 9.7 cm x 4.3 cm x 4.7 cm. There is thinning of the renal cortex. The right cortex measures 0.9 cm. There is no demonstrated renal mass or cyst. There is no right hydronephrosis. Left Kidney: Normal size of the left kidney. The left kidney measures 11.7 cm x 3.9 cm x 5.1 cm. Normal renal cortex. The left cortex measures 1.1 cm. There is a 3.5 cm x 2 cm x 1.7 cm cyst. There is no left hydronephrosis. Aorta: Unremarkable. I.V.C.: The IVC is patent. Trace amount of free fluid. US/Abdomen Complete IMPRESSION: Hepatomegaly with heterogeneous echotexture of the liver. Left renal cyst. Trace amount of free fluid. Electronically Signed: Emil Ramos, at 10:22 EST , Service support ,
[2019-06-27] MEDS: 0.9% Saline Lock 10 ML Syringe IV (05:56)
[2019-06-27 06:21] LABS: Anion Gap 21 (5-15); BUN 41 mg/dL (7-18); BUN/Creat Ratio 7.7 RATIO (10-20); Calcium,Total 8.1 mg/dL (8.5-10.1); Chloride 101 mmol/L (98-107); Cholesterol 81 mg/dL (200); Creatinine, Serum 5.35 mg/dL (0.55-1.02); EST Glomerular Filtration Rate 8 mL/min (>60); Est Glom Filt Rate - Afr Amer 10 mL/min (>60); Estimated Creatinine Clearance 8.69 ml/min; Glucose 51 mg/dL (74-106); High Density Lipoprotein 24 mg/dL; Potassium 5.4 mmol/L (3.5-5.1); Sodium Level 134 mmol/L (136-145); Triglycerides 165 mg/dL; Very Low Density Lipoprotein 33 mg/dL (5-40)
[2019-06-27] MEDS: Hydrocortisone Sod Succinate 100 MG/2 ML Vial 50 MG IV (06:36)
[2019-06-27] MEDS: Heparin Injection (Vial) 5,000 UNIT/ML VIAL 5000 UNIT SC (06:36)
[2019-06-27] MEDS: Levothyroxine 137 MCG Tablet PO (06:36)
[2019-06-27 06:38] LABS: Differential Indicated MANUAL DIFF
[2019-06-27 06:52] LABS: Lymphocyte 5 % (19-41); Metamyelocyte 8 % (0-1); Monocyte 6 % (0-10); Myelocyte 1 (0-0); Neutrophil-Band 23 % (0-5); Neutrophil-Segmented 57 % (47-70); Total Cells Counted 100 (MANUAL DIFF)
[2019-06-27 06:54] LABS: Absolute Lymphocyte Count 1.23 X10^3/uL (0.83-4.51); Absolute Neutrophil Count 19.7 X10^3/uL (2.0-7.7); Lymphocyte # 1.23 X10^3/ul (4.0); Neutrophil # 19.68 X10^3/uL (2.7-7.7); Platelet Estimate SLT DEC (ADEQ)
[2019-06-27 06:55] LABS: Anisocytosis 1+; Crenated RBC 2+; Macrocytosis 2+
[2019-06-27 06:56] LABS: Polychromasia RARE
[2019-06-27 06:57] LABS: Toxic Granulation RARE
--- NOTE | 2019-06-27 08:23 | PCM.CON.CC ---
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 (3) CAP (community acquired pneumonia) Status: Inactive (4) Hyperglycemia Status: Acute (5) ESRD (end stage renal disease) on dialysis Status: Chronic (6) HTN (hypertension) Status: Chronic Qualifiers: Hypertension type: essential hypertension Qualified Code(s): I10 - Essential (primary) hypertension (7) HLD (hyperlipidemia) Status: Chronic Qualifiers: Hyperlipidemia type: unspecified Qualified Code(s): E78.5 - Hyperlipidemia, unspecified (8) Chronic anemia Status: Chronic (9) Chronic idiopathic thrombocytopenia Status: Chronic (10) CAD (coronary artery disease) Status: Chronic Qualifiers: Coronary Disease-Associated Artery/Lesion type: unspecified vessel or lesion type [place] vs. transplanted heart: unspecified whether [place] or transplanted heart Associated angina: angina presence unspecified Qualified Code(s): I25.10 - Atherosclerotic heart disease of [place] coronary artery without angina pectoris (11) Hypothyroidism Status: Chronic Qualifiers: Hypothyroidism type: unspecified Qualified Code(s): E03.9 - Hypothyroidism, unspecified (12) Cardiac arrest Status: Acute Reason for Consult Date of Consultation: 06/27/19 Reason for Consultation: Septic shock History of Present Illness: The patient is a 68 year old F, with past medical history listed below, who presented to [facility] on 06/26/2019 secondary to progressive abdominal pain over the last 2 to 3 days. Patient reportedly has been staying at [facility] for rehab. Patient is on chronic hemodialysis Wednesday, Wednesday and Wednesday. Patient did receive dialysis on the day of presentation. Patient had reported some right-sided abdominal pain that was not associated with nausea, vomiting or diarrhea. No fever, chest pain or shortness of breath of been reported. Patient was recently admitted at [facility] at the end of May and had a heart catheterization showing complete occlusion of the left main with appropriate bypass. Patient's EF was reportedly 25 to 30% at that time. On presentation to the ER, patient was hypotensive at 62/26. Patient had an emergent central line placed. Patient was reportedly did receive Zofran, fentanyl and IV fluids without improvement. Patient was initiated on Levophed. Patient became unresponsive and had CPR on 3 separate occasions. Patient was reportedly quickly responsive after CPR began and patient had switched CODE STATUS is to a DNR Comfort Care arrest without intubation. Patient was admitted to the intensive care unit for further evaluation. Since being in the intensive care unit, patient has remained hypotensive despite Levophed, vasopressin and stress dose steroids. Surprisingly, patient was mentating well on 3 L nasal cannula. Patient had reported increased lower extremity pain. Patient stated this was similar in character to her baseline, but more intense. Patient did not report any abdominal pain on my evaluation. Patient denied any headache. Patient did not report any recent trauma, but did state that she was recently in the hospital. Patient did not report chest pain on my evaluation. Patient did confirm on my evaluation that she is a DNR Comfort Care arrest without intubation given her end-stage renal disease, end-stage liver disease and progressive decline. Patient reportedly does have a history of end-stage liver disease secondary to hepatitis C. This was not documented in the medical record that I can find previously. Patient did have a CT of the abdomen and pelvis showing hepatic cirrhosis with portal hypertension and varices. Past Medical History Past Medical History (Chronic Problems): Chronic Problems Diabetes (Chronic) ESRD (end stage renal disease) on dialysis (Chronic) HTN (hypertension) (Chronic) HLD (hyperlipidemia) (Chronic) Chronic anemia (Chronic) Chronic idiopathic thrombocytopenia (Chronic) CAD (coronary artery disease) (Chronic) Hypothyroidism (Chronic) Allergies esomeprazole [From Nexium] Allergy (Verified 06/17/19 13:07) Upset Stomach Iodinated Contrast Media [CONTRASTS] Allergy (Verified 06/17/19 13:07) Other Home Medications: Ambulatory Orders Medication Instructions Recorded Aspirin 81 mg PO DAILY 04/06/18 Atorvastatin Calcium [Lipitor] 40 mg PO QHS 04/06/18 Clopidogrel Bisulfate [Plavix] 75 mg PO DAILY 04/06/18 Gabapentin [Neurontin] 600 mg PO TIDCM 04/06/18 Insulin Aspart [Novolog Flexpen] 0 units SC ACHS 04/06/18 Levothyroxine [Synthroid] 137 mcg PO DAILY 04/06/18 Metolazone [Zaroxolyn] 5 mg PO DAILY 04/06/18 Calcium Acetate 667 mg PO TIDCM 05/02/19 Furosemide 40 mg PO BID 05/02/19 Insulin Degludec [Tresiba] 24 units SQ DAILY 05/02/19 Ascorbic Acid [Vitamin C] 500 mg PO DAILY 06/27/19 Metoprolol(XL)Succ [Toprol Xl 12.5 mg PO DAILY 06/27/19 (Beta [place])] Multivit,Calc,Mins/Iron/Folic 1 ea PO DAILY 06/27/19 [Thera M Plus Tablet] Nitroglycerin [Nitrostat] 0.4 mg SL PRN PRN 06/27/19 Surgical History: angioplasty, - - CABG x4, possible PCI but patient not the best historian, right upper extremity aVF, bilateral cataract surgery, tonsillectomy, cholecystectomy, appendectomy, hysterectomy, left foot surgery, left total knee replacement. 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 Agree with formal interpretation. Echocardiogram as described. - Physical Exam Vitals/I&O's: Vital Signs Temp Pulse Resp BP Pulse Ox 36.8 C 80 27 H 63/30 L 100 06/27/19 07:00 06/27/19 07:00 06/27/19 07:00 06/27/19 07:00 06/27/19 07:00 Oxygen Flow Rate (L/min) 3 Oxygen Delivery Method Nasal Cannula Weight: 100.2 kg Body Mass Index (BMI) 37.9 Intake and Output for Last 24 Hours 06/25/19 06/26/19 06/27/19 23:59 23:59 23:59 Intake Total 3748.45 / 3748.45 Output Total 0 / 0 Balance 3748.45 / 3748.45 General: Alert, Oriented x3, Cooperative, - - Obese. No conversational dyspnea. Patient does appear to be tired HEENT: Atraumatic, PERRLA, EOMI, Normocephalic, - - No scleral icterus or injection noted. Oral: Moist Mucosa, No Gingival or Mucosal Lesions/ Ulcerations Neck: Supple, No Nodes, Trachea Midline Lungs: No rhonchi, No wheeze, No rales, Diminished, - - Fair effort. Cardiovascular: Regular rate, Regular Rhythm, Normal S1, Normal S2, Murmur - Grade 2 out of 6 systolic ejection murmur at the right sternal border, No rub noted, No Gallop Abdomen: Bowel Sounds Present, Soft, Obese, Tender - Palpation on the right without guarding or rebound Extremities: No clubbing, No cyanosis, Edema, - - Fistula in right upper extremity Skin: No rashes, No breakdown Musculoskeletal: No Tenderness to Palpation of Joints or Extremities Lymphatic: No Cervical, Supraclavicular, or Inguinal Adenopathy Neurological: Cranial nerves II-XII grossly intact, Neuro grossly intact, Motor Exam 5/5 strength throughout Psych/Mental Status: Appropriate, Anxious Laboratory Results 06/26/19 23:25: WBC 16.3 H, RBC 3.69 L, Hgb 12.0, Hct 38.6, MCV 104.6 H, MCH 32.5 H, MCHC 31.1 L, RDW Std Deviation 75.6 H, RDW Coeff of Mary 19.8 H, Plt Count 88 L, MPV 12.2 H, Immature Gran % (Auto) 4.700 H, Neut % (Auto) 80.6 H, Lymph % (Auto) 6.7 L, Leon % (Auto) 7.4, Eos % (Auto) 0.1, Baso % (Auto) 0.5, Absolute Neuts (auto) 13.1 H, Absolute Lymphs (auto) 1.09, Nucleated RBC % 0.1, Differential Comment , Platelet Estimate MOD DEC, Anisocytosis 1+, Macrocytosis 2+ 06/26/19 23:25: Sodium 131 L, Potassium 5.0, Chloride 96 L, Carbon Dioxide 18.0 L, Anion Gap 17 H, BUN 42 H, Creatinine 5.40 H, Estim Creat Clear Calc 8.61, Est GFR (MDRD) Af Amer 10 L, Est GFR (MDRD) Non-Af 8 L, BUN/Creatinine Ratio 7.8 L, Glucose 147 H, Calcium 9.3, Total Bilirubin 1.70 H, AST 203 H, ALT 22, Alkaline Phosphatase 125 H, Troponin I 804.000 H*, Total Protein 7.4, Albumin 2.9 L, Globulin 4.5 H, Albumin/Globulin Ratio 0.6 L, Lipase 81 06/26/19 23:25: Lactic Acid 11.1 H* 06/27/19 00:35: POC Glucose 112 H 06/27/19 04:08: Lactic Acid 12.7 H* 06/27/19 05:20: Sodium 134 L, Potassium 5.4 H, Chloride 101, Carbon Dioxide 12.0 L, Anion Gap 21 H, BUN 41 H, Creatinine 5.35 H, Estim Creat Clear Calc 8.69, Est GFR (MDRD) Af Amer 10 L, Est GFR (MDRD) Non-Af 8 L, BUN/Creatinine Ratio 7.7 L, Glucose 51 L, Calcium 8.1 L, Triglycerides 165, Cholesterol 81, LDL Cholesterol 24, VLDL Cholesterol 33, HDL Cholesterol 24 L, TSH 7.50 H 06/27/19 05:20: WBC 24.6 H, RBC 3.79 L, Hgb 12.4, Hct 41.1, MCV 108.4 H, MCH 32.7 H, MCHC 30.2 L, RDW Std Deviation 80.7 H, RDW Coeff of Mary 19.9 H, Plt Count 108 L, MPV 12.1 H, Neut % (Auto) Not Reportable, Absolute Neuts (auto) 19.7 H, Absolute Lymphs (auto) 1.23, Total Counted 100, Neutrophils % (Manual) 57, Band Neutrophils % 23 H, Lymphocytes % (Manual) 5 L, Monocytes % (Manual) 6, Metamyelocytes % 8 H, Myelocytes % 1 H, Diff Path Review May foll, Toxic Granulation RARE, Platelet Estimate SLT DEC, Polychromasia RARE, Anisocytosis 1+, Macrocytosis 2+, Crenated Cell 2+ 06/27/19 05:35: Troponin I 137.000 H* Current Medications Aspirin (Aspirin, Baby) 81 mg PO DAILYCM PENDING SALE TO [facility] Atorvastatin Calcium (Lipitor) 40 mg PO QHS ROBERT Clopidogrel Bisulfate (Plavix) 75 mg PO DAILY PENDING SALE TO [facility] Fentanyl Citrate (Sublimaze (100mcg Ampule)) 50 mcg IV Q2H PRN PRN PRN Reason: pain 6-10 Gabapentin (Neurontin) 600 mg PO TIDCM PENDING SALE TO [facility] Glucagon () 1 mg IM .X1 PRN PRN Reason: Hypoglycemia Heparin Sodium (Porcine) (Heparin Na) 5,000 unit SC Q8 PENDING SALE TO [facility] Last Admin: 06/27/19 06:36 Dose: 5,000 unit Documented by: Hydrocortisone Sodium Succinate (Solu-Cortef) 100 mg IV Q8 PENDING SALE TO [facility] Norepinephrine Bitartrate 8 mg (/ Sodium Chloride) 250 mls @ 9.375 mls/hr CONT INF .[id number] PENDING SALE TO [facility]; Protocol Last Titration: 06/27/19 07:00 Dose: 30 mcg/min, 56.3 mls/hr Documented by: Vasopressin 20 units/ Sodium (Chloride) 25 mls @ 3 mls/hr IV .Q8H20M PENDING SALE TO [facility] Last Infusion: 06/27/19 07:44 Dose: 0.04 units/min, 3 mls/hr Documented by: Piperacillin Sod/Tazobactam (Sod 3.375 gm/ Sodium Chloride) 50 mls @ 12.5 mls/hr IV Q12 PENDING SALE TO [facility] Last Infusion: 06/27/19 07:00 Dose: 12.5 mls/hr Documented by: Sodium Chloride () 1,000 mls @ 50 mls/hr IV .Q20H PENDING SALE TO [facility] Last Infusion: 06/27/19 07:00 Dose: 50 mls/hr Documented by: Dextrose (Dextrose 10%-Water) 250 mls @ 999 mls/hr IV .Q16M PRN; Protocol PRN Reason: HYPOGLYCEMIA Sodium Chloride () 250 mls @ 15 mls/hr IV .[id number] PRN PRN Reason: Saline Flush Last Infusion: 06/27/19 05:51 Dose: 0 mls/hr Documented by: Sodium Chloride () 250 mls @ 15 mls/hr IV .[id number] PRN PRN Reason: Additional IVPB Infusion Insulin Human Lispro (Humalog Kwikpen (Bkc)) 0 unit SC Q6 PENDING SALE TO [facility]; Protocol Last Admin: 06/27/19 06:37 Dose: Not Given Documented by: Levothyroxine Sodium (Synthroid) 137 mcg PO DAILY@0600 PENDING SALE TO [facility] Last Admin: 06/27/19 06:36 Dose: 137 mcg Documented by: Lorazepam (Ativan) 1 mg IV Q2H PRN PRN PRN Reason: ANXIETY Ondansetron HCl (Zofran) 4 mg IV Q8H PRN PRN PRN Reason: NAUSEA/VOMITING Sodium Chloride () 10 - 40 ml IV UD PRN PRN Reason: SALINE FLUSH Last Admin: 06/27/19 05:56 Dose: 10 ml Documented by: Clinical Impression(s) from Imaging Studies Chest X-Ray 06/26/19 23:25 IMPRESSION: Lines as above. There is no demonstrated pneumothorax. Stable cardiac enlargement, degenerative changes, postsurgical changes. Interval resolution of previous right basilar airspace disease and effusion. Electronically Signed: Meaghan Morales MD at 0:00 EST , Service support , Abdomen/Pelvis CT 06/27/19 00:22 IMPRESSION: Significant mesenteric fat stranding at the level of the pancreas, gastric antrum and duodenum, a primary enteritis or duodenitis may be present, pancreatitis as an etiology is focal to separate. No pseudocyst, abscess, perforation, colitis detected on noncontrast imaging. Hepatosplenomegaly, hepatic cirrhosis, portal hypertension and varices. Renal and pancreas involution, probable left renal cyst, this can be verified with ultrasound as needed. Extensive severe diffuse arterial sclerosis. Electronically Signed: Meaghan Morales MD at 4:31 EST , Service support , Assessment/Plan Active and Suspected Problems Pancreatitis, acute (Acute) Septic shock (Acute) Cardiac arrest (Acute) Hypotension (Acute) Abdominal pain (Acute) RECOMMENDATIONS: 1. Continue Levophed, vasopressin and stress dose steroids 2. Continue empiric healthcare associated antibiotics 3. Consider vancomycin following hemodialysis 4. Clarified CODE STATUS is DNR Comfort Care arrest without intubation 5. Fluid boluses as tolerated IMPRESSIONS: 1. Cardiac arrest secondary to possible cardiogenic shock versus septic shock Patient's blood pressure continues to be marginal. Patient has received multiple episodes of CPR, but appears to be mentating well at this time. Patient does have significant elevation of troponin and it is unclear if this is secondary to decreased perfusion through bypass grafts versus a non-ST elevation NE. Patient is also had a significant leukocytosis, so septic shock would be a consideration. Would give vancomycin following dialysis. Would hold on any Ativan given increased risk for delirium and inability to monitor mental status given poor blood pressure reliability 2. Non-ST elevation NE Unclear etiology. Patient did recently have a heart catheterization. Would defer to cardiology on whether patient should have a repeat echocardiogram. Reasonable to continue with Lipitor, Plavix and aspirin. 3. Diabetes mellitus Patient with decreased blood sugars this morning. Patient is off of her long-acting insulin, but still may have some effects from home dosing. We will continue to treat as necessary. 4. End-stage renal disease/end-stage liver disease/hypothyroidism/hypertension/coronary artery disease/obesity Complicates care, management, recovery and prognosis. Did discuss CODE STATUS at length and patient was consistent. Okay to continue with Synthroid, but would hold on any antihypertensives given patient's current hemodynamics. TIME: 45 minutes critical care time spent addressing patient's cardiac arrest, shock, non-ST elevation NE, diabetes, clarification of CODE STATUS, review of all data and collaboration with care team (7 AM to 8:30 AM) Code Visit 9xxxx: [id number] Critical care first hour
--- NOTE | 2019-06-27 08:55 | NURSING ---
pt prounced per Dr. Rosas family present
--- NOTE | 2019-06-27 10:33 | CASEMGMT ---
Addendum entered by Jennifer Barajas 06/27/19 10:37: Phone call to [facility] to notify of pt . CHARLA Cisse Original Note: Social Work SW notified that pt and family in the room with pt. SW entered room and introduced self. Pt , daughter in law and grandson in the room. SW provided emotional support to family. Pt appropriately tearful and shared openly about pt. SW inquired about clergy and pt stating he has already notified his product safety associate and the product safety associate is on the way in. SW notified family that SW will remain available for additional needs. CHARLA Cisse
[2019-06-28 10:25] LABS: Pathologist Review Reviewed
--- NOTE | 2019-06-29 15:16 | EXP.PCM_ITS ---
Preliminary Cause of Asystole secondary to septic shock from staph epidermidis Date of Admission: 06/27/19 Date of : 06/27/19 - Principle Diagnosis #1 septic shock secondary to staph epidermidis #2 asystole secondary to septic shock #3 ischemic cardiomyopathy #4 end-stage renal disease on dialysis #5 non-STEMI Problem List: Active and Suspected Problems Pancreatitis, acute (Acute) Septic shock (Acute) Hospital Course This 68-year-old white female was seen in the emergency room at [facility] after being transported from a local [facility] at which she resides due to complaints of abdominal pain and overall body aches. Evaluation of the patient in the emergency room revealed her to be hypotensive, a central line was placed, IV fluids were administered, lab was obtained which showed an elevated white blood cell count of 16.3, chemistries show a BUN of 42, creatinine of 5.4, lactic acid was 11, and troponin was 804. Patient's liver enzymes were elevated. Patient continued to be hypotensive and she was started on IV pressor agents in the emergency room, patient then became unresponsive and had no pulse, CPR was started she was given epinephrine and the patient regained her pulse and was responsive. She had a another episode of hypotension with no pulse and CPR was again started, she then became responsive quickly after CPR began. Discussions were carried out with family members who requested that the patient be a DNR CC arrest with no intubation, she was transported to the ICU where she was continued on fluids and pressor agents as well as antibiotics. At 8:55 AM, patient remained hypotensive and bradyed down and went into asystole and . Patient was pronounced at 8:55 AM. Family was at the bedside, I talked with them and no autopsy was requested. Final blood cultures revealed the patient to have had staph epidermidis positive blood cultures, it was felt the patient from septic shock from staph epidermidis infection. Inpatient E&M: [id number]
== END 2019-06-27 12:50 | DRG 871 ==
LOC: ED 23:32 → ICU 06-27 03:37
PROVIDERS: Admitting Provider Hospitalist; Emergency Provider Emergency Medicine; Visit Provider Internal Medicine
DX: A41.1 Sepsis due to other specified staphylococcus (principal); R65.21 Severe sepsis with septic shock; N18.6 End stage renal disease; I21.4 Non-ST elevation (NSTEMI) myocardial infarction; K85.90 Acute pancreatitis without necrosis or infection, unspecified; I25.810 Atherosclerosis of coronary artery bypass graft(s) without angina pectoris; I13.2 Hypertensive heart and chronic kidney disease with heart failure and with stage 5 chronic kidney disease, or end stage renal disease; I50.20 Unspecified systolic (congestive) heart failure; I46.9 Cardiac arrest, cause unspecified; E03.9 Hypothyroidism, unspecified; I25.10 Atherosclerotic heart disease of native coronary artery without angina pectoris; B19.20 Unspecified viral hepatitis C without hepatic coma; E11.22 Type 2 diabetes mellitus with diabetic chronic kidney disease; Z95.1 Presence of aortocoronary bypass graft; Z99.2 Dependence on renal dialysis; Z95.810 Presence of automatic (implantable) cardiac defibrillator; Z79.4 Long term (current) use of insulin; Z87.891 Personal history of nicotine dependence; Z66 Do not resuscitate; I25.5 Ischemic cardiomyopathy
CPT/HCPCS: 36556; 71045; 74176; 76700; 80048; 80053; 80061; 82962; 83605; 83690; 84443; 84484; 85025; 87040; 87077; 87186; 93005; 99285; J7030; J7050; A4216; C1751; J2405; J3490